=== PATIENT | male | born 1945 | race Caucasian/White ===

== ENCOUNTER → 2018-01-24 | Outpatient (CLI) | payer OTHER ==
--- NOTE | 2018-01-25 16:21 | PE ---
EXAMINATION TYPE: PET CT fusion skull to thigh DATE OF EXAM: 01/24/2018 COMPARISON: Low-dose CT dated 01/13/2018 Prior PET/CT: None HISTORY: Abnormal CT, solitary pulmonary nodule TECHNIQUE: Following the intravenous administration of 15.45 mCi of F-18 FDG, whole body images are performed from the skull base to the midthigh. Images are reviewed on the computer in the coronal, a xial, and sagittal planes. Reconstructed rotating images are created on independent workstation and reviewed on the computer. A localization and attenuation correction CT is performed in conjunction with the PET scan. DLP: 470.46 mGycm SCAN: Initial Blood glucose: 81 mg/dL Average Mediastinum SUV: 1.51 Average Liver SUV: 2.25 FINDINGS: NECK: There is a focus of radiotracer accumulation within the right neck which can be a lymph node w ith increased radiotracer. The SUV values 2.4. Metastatic lesion this level is not excluded. THORAX: Superior mediastinal uptake is evident. PET image 79. 2 foci of small lymph node may be prese nt with SUV values of 3.88 and 3.1. A pretracheal lymph node which is enlarged as an SUV value of 6.3 1. PET image 82 a subtle lymph node in the right peribronchial has mild uptake of 2.37. Early metasta sis is not excluded. This could be inflammatory. There is a small density in the posterior lateral right apex. PET image 72. This has an SUV value of 0.53 which is not obvious neoplasm. This may be too small for accurate evaluation. This area correspo nds to the finding on the low-dose screening CT. Tiny nodule in the posterior left apex near the periphery has uptake in the range of 0.56 SUV. This i s nonspecific. This is likely too small for accurate evaluation. ABDOMEN: No abnormal uptake PELVIS: No abnormal uptake OSSEOUS STRUCTURES: There is a right hip prosthesis with some beam hardening artifact. No abnormal ra diotracer accumulation within the osseous structures is evident. LOCALIZATION CT: Previous lung findings are again evident including a small peripheral nodule in the posterior left medial lung apex, image 77 and the density within the posterior lateral right apex, se yane 3 image 72. Current examination is right apical area measures 1.3 x 1.0 cm on lung windows COMPARISON: Findings appear compatible with the low-dose low-dose CT screening chest. IMPRESSION: 1. Increased uptake of radiotracer within mediastinal lymph nodes suspicious for neoplasm. These may be metastatic from unknown primary.. Primary neoplasm such as lymphoma should be considered. 2. Small focal abnormalities on lung windows are nonspecific on the PET imaging. Significant uptake o f these locations are not evident to suggest neoplasm. Early metastatic lesions however are not exclu ded. These require monitoring. Recommendations: 1. Histologic diagnosis with biopsy of the pretracheal lymph node above the level of the aortic arch may provide the most reliable results.
== END | disposition home or self-care (01) ==
LOC: RADPETMAIN 15:24
PROVIDERS: ATTEND Internal Medicine Critical Care Medicine
DX: R91.8 Other nonspecific abnormal finding of lung field (principal)
CPT/HCPCS: 78815; A9552

== ENCOUNTER → 2018-05-12 | Outpatient (CLI) | payer OTHER ==
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
== END | disposition home or self-care (01) ==
LOC: SLEEP 13:22
PROVIDERS: ATTEND Internal Medicine Critical Care Medicine
DX: J44.9 Chronic obstructive pulmonary disease, unspecified (principal); F10.20 Alcohol dependence, uncomplicated; Z85.46 Personal history of malignant neoplasm of prostate; Z96.641 Presence of right artificial hip joint; Z79.899 Other long term (current) drug therapy
CPT/HCPCS: 99211

== ENCOUNTER → 2018-05-25 | Outpatient (CLI) | payer OTHER ==
[2018-05-25 12:05] LABS: Blood Urea Nitrogen 17 mg/dL (9-20)
[2018-05-25 12:36] LABS: Prostate Specific Antigen 5.76 ng/mL (0.00-4.00)
--- NOTE | 2018-05-25 14:37 | CT ---
EXAMINATION TYPE: CT chest w con DATE OF EXAM: 05/25/2018 COMPARISON: 12/26/2017 HISTORY: Mulltiple Lung Nodules CT DLP: 625 mGycm Automated exposure control for dose reduction was used. CONTRAST: CT scan of the chest is performed with IV Contrast, patient injected with 100 ml mL of Isovue 300. FINDINGS: LUNGS: There is a stable nodule measuring 1.4 x 1.1 cm the posterior lateral margin of the right lung apex unchanged from the prior exam. There are peripheral based nodule within the posterior medial left upper lobe measuring 0.6 x 0.3 cm stable in appearance. There is a peripheral pleural-based calcification anterior left midlung measuring 6 x 9 mm stable. Within the right upper lobe anterolaterally on image 23 is a stable appearing 4 mm nodule. Calcified pleural nodule anterior margin right upper lobe axial image 24 There is no pleural effusion or pneumothorax. No consolidative pneumonia. Hyperinflation correlation suggested COPD. At the left lung base there is an area of subsegmental consolidation adjacent to the left heart borde r likely in the basis of atelectasis. MEDIASTINUM: There is a stable appearing 1.1 cm short axis area of adenopathy in the pretracheal posi tion of the mediastinum unchanged from the prior exam. Additional areas of shotty adenopathy are note d. Atherosclerotic change of the aorta. There is mild aneurysmal dilation of the ascending aorta measuri ng 4.4 cm. There is a 9 mm left thyroid nodule. OTHER: Structures of the upper abdomen demonstrate small hiatal hernia. IMPRESSION: 1. Stable changes of COPD and pulmonary nodules as discussed above with no interval change in size or number compared to the previous. Additional 6 month follow-up is recommended to confirm stability. 2. Stable mediastinal lymphadenopathy. 3. 9 mm left thyroid nodule
== END | disposition home or self-care (01) ==
LOC: RADCTMAIN 11:10
PROVIDERS: ATTEND Internal Medicine Critical Care Medicine
DX: J44.9 Chronic obstructive pulmonary disease, unspecified (principal); R91.8 Other nonspecific abnormal finding of lung field; R59.0 Localized enlarged lymph nodes; E04.1 Nontoxic single thyroid nodule; C61 Malignant neoplasm of prostate
CPT/HCPCS: 84153; 82565; 84520; 71260; 36415; Q9967

== ENCOUNTER → 2018-12-03 | Outpatient (CLI) | payer OTHER | LOC: LABWHC1 11:05 | PROVIDERS: ATTEND Urology | DX: C61 Malignant neoplasm of prostate (principal) | CPT/HCPCS: 36415; 84153 ==

== ENCOUNTER → 2018-12-04 | Outpatient (CLI) | payer OTHER ==
[2018-12-04 11:23] LABS: Blood Urea Nitrogen 18 mg/dL (9-20)
--- NOTE | 2018-12-04 12:24 | CT ---
EXAMINATION TYPE: CT chest w con DATE OF EXAM: 12/04/2018 COMPARISON: 05/25/2018 HISTORY: Abnornal findings of lung field CT DLP: 467 mGycm Automated exposure control for dose reduction was used. CONTRAST: CT scan of the chest is performed with IV Contrast, patient injected with 100 ml mL of Isovue 300. FINDINGS: LUNGS: There is a stable nodule measuring 1.4 x 1.1 cm the posterior lateral margin of the right lung apex unchanged from the prior exam. There are peripheral based nodule within the posterior medial le ft upper lobe measuring 0.6 x 0.3 cm stable in appearance. There is a peripheral pleural-based calcif ication anterior left midlung measuring 6 x 9 mm stable. Within the right upper lobe anterolaterally on image 23 is a stable appearing 4 mm nodule. Calcified pleural nodule anterior margin right upper lobe axial image 24. There is a 5 mm nodule posterior segm ent right lower lobe image 57. There is no pleural effusion or pneumothorax. No consolidative pneumonia. Hyperinflation and diffuse emphysematous changes compatible with COPD. At the left lung base there is an area of subsegmental co nsolidation adjacent to the left heart border likely in the basis of atelectasis. MEDIASTINUM: There is a stable appearing 1.1 cm short axis area of adenopathy in the pretracheal posi tion of the mediastinum unchanged from the prior exam. Additional areas of shotty adenopathy are note d. Atherosclerotic change of the aorta. There is mild aneurysmal dilation of the ascending aorta kayode uring 4.4 cm. There is a 9 mm left thyroid nodule. Small amount of pericardial fluid. Atherosclerotic change of the aorta. OTHER: There is a small hiatal hernia. IMPRESSION: 1. Stable changes of COPD. The previous nodules are stable, however, there is a single new nodule wit hin the right lower lobe measuring 5 mm on axial image 57 which may be postinflammatory but is too sm all to accurately characterized exclude neoplasm. Additional 3 month follow-up is recommended to conf irm stability. 2. Stable mediastinal lymphadenopathy. 3. There is a 9 mm left thyroid nodule
== END | disposition home or self-care (01) ==
LOC: RADCTMAIN 10:45
PROVIDERS: ATTEND Internal Medicine Critical Care Medicine
DX: J44.9 Chronic obstructive pulmonary disease, unspecified (principal); R59.0 Localized enlarged lymph nodes; R91.8 Other nonspecific abnormal finding of lung field
CPT/HCPCS: 82565; 84520; 71260; 36415; Q9967

== ENCOUNTER → 2019-01-25 | Outpatient (CLI) | payer OTHER ==
[2019-01-25 08:18] LABS: Blood Urea Nitrogen 13 mg/dL (9-20)
--- NOTE | 2019-01-25 10:31 | CT ---
EXAMINATION TYPE: CT pelvis w con DATE OF EXAM: 01/25/2019 COMPARISON: Nuclear medicine PET/CT 01/24/2018 HISTORY: Prostate cancer CT DLP: 704 mGycm Automated exposure control for dose reduction was used. TECHNIQUE: Helical acquisition of images from the lung bases through the pelvis have been completed. CONTRAST: Performed with Oral Contrast and with IV Contrast, patient injected with 100 ml mL of Isovue 300. FINDINGS: AORTA: Dense calcifications are present REPRODUCTIVE ORGANS: Prostate is enlarged and shows associated calcifications. Possible small left in guinal hernia containing fat. BOWEL: Intussusception is are noted on axial images 24 through 27, 20-23 within the small bowel. No bowel obstruction evident FREE AIR: No Free Air visible. ASCITES: None visible. PELVIC ADENOPATHY: None visualized. RETROPERITONEAL ADENOPATHY: No Retroperitoneal Adenopathy visible. URINARY BLADDER: No significant abnormality is seen. OSSEOUS STRUCTURES: Postop changes are noted to the right hip. There is streak artifact due to the m etallic density. Probable gas-filled geode present in the posterior ilium on the right is subcentimet er in size. IMPRESSION:
--- NOTE | 2019-01-25 13:47 | NM ---
EXAMINATION TYPE: NM bone scan whole body DATE OF EXAM: 01/25/2019 COMPARISON: CT chest dated 12/04/2018 HISTORY: Prostate cancer Delayed whole-body scanning was performed following the injection of 23.9 mCi Tc 99m MDP. Images acq uired 4.75 hours post injection. FINDINGS: There is abnormal focal radiotracer uptake within the posterior right 11th and 12th ribs, more avid a t the 11th rib. Given the consecutive and linear nature these are favored to be posttraumatic. This i s confirmed on the CT dated 12/04/2018 as there are rib fractures within the 12th and 11th posterior r ight ribs that do not appear to be suspicious on CT for pathologic fractures. Symmetric radiotracer uptake is seen within the acromioclavicular joints, glenohumeral joints, sterno clavicular joints, sacroiliac joints, hips, knees, ankles, elbows, and wrists related to arthropathy. Physiologic excretion is seen within the right renal pelvis and urinary bladder. No suspicious focal areas of radiotracer uptake are seen. IMPRESSION: 1. No suspicious radiotracer uptake to indicate metastatic disease. 2. Focal radiotracer uptake within the posterior right 11th and 12th ribs from subacute rib fractures . These do not appear pathologic on the prior CT. 3. 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
== END | disposition home or self-care (01) ==
LOC: RADCTMAIN 07:33
PROVIDERS: ATTEND Urology
DX: C61 Malignant neoplasm of prostate (principal); M12.88 Other specific arthropathies, not elsewhere classified, other specified site; R93.7 Abnormal findings on diagnostic imaging of other parts of musculoskeletal system; Z88.5 Allergy status to narcotic agent; Z88.1 Allergy status to other antibiotic agents
CPT/HCPCS: 82565; 84520; 72193; 36415; 78306; A9503; Q9967

== ENCOUNTER → 2019-03-01 | Outpatient (CLI) | payer OTHER ==
[2019-03-01 16:20] LABS: Basophils % (A) 1 %; Eosinophils # (A) 0.2 k/uL (0-0.7); Eosinophils % (A) 3 %; HGB 13.8 gm/dL (13.0-17.5); Lymphocytes # (A) 1.2 k/uL (1.0-4.8); Lymphocytes % (A) 18 %; MCH 31.5 pg (25.0-35.0); MCHC 33.6 g/dL (31.0-37.0); MCV 93.9 fL (80.0-100.0); Monocytes # (A) 0.6 k/uL (0-1.0); Monocytes % (A) 9 %; Neutrophils # (A) 4.6 k/uL (1.3-7.7); Neutrophils % (A) 68 %; Platelet Count 244 k/uL (150-450); RBC 4.37 m/uL (4.30-5.90); RDW 14.2 % (11.5-15.5); WBC 6.8 k/uL (3.8-10.6)
[2019-03-01 16:30] LABS: Anion Gap 7 mmol/L; Blood Urea Nitrogen 16 mg/dL (9-20); Calcium 9.1 mg/dL (8.4-10.2); Carbon Dioxide 26 mmol/L (22-30); Chloride 105 mmol/L (98-107); Glucose 70 mg/dL (74-99); Sodium 138 mmol/L (137-145)
[2019-03-01 16:35] LABS: Appearance,Urine Clear (Clear); Bilirubin,Urine Negative (Negative); Blood,Urine Trace (Negative); Color,Urine Yellow; Glucose,Urine (UA) Negative (Negative); Ketones,Urine Negative (Negative); Leukocyte Esterase,Urine Negative (Negative); Mucus,Urine Rare /hpf; Nitrite,Urine Negative (Negative); PH, Urine 5.5 (5.0-8.0); Protein,Urine Trace (Negative); RBC,Urine 3 /hpf (0-5); Specific Gravity,Urine 1.027 (1.001-1.035); Sperm,Urine Rare /hpf; Urobilinogen,Urine <2.0 mg/dL (<2.0); WBC,Urine 1 /hpf (0-5)
== END | disposition home or self-care (01) ==
LOC: LABPAT 15:00
PROVIDERS: ATTEND Urology
DX: Z01.818 Encounter for other preprocedural examination (principal); Z01.812 Encounter for preprocedural laboratory examination; C61 Malignant neoplasm of prostate; R53.83 Other fatigue; Z79.899 Other long term (current) drug therapy
CPT/HCPCS: 80048; 81001; 85025; 93005

== ENCOUNTER 2019-03-11 08:46 | Inpatient (IN) | payer OTHER ==
--- NOTE | 2019-03-10 12:37 | P.GSHP ---
History of Present Illness H&P Date: 03/01/19 Chief Complaint: Prostate Cancer The patient is a 73-year-old white male originally diagnosed with prostate cancer in December 2015. His PSA level at that time was 6.6. A single biopsy at the right lateral base was positive for Codi 6 adenocarcinoma, and he chose active surveillance rather than treatment. Repeat biopsies in December 2016 showed Codi 7 (3+4) adenocarcinoma at the right lateral base, as well as a small focus of Chestnut 6 adenocarcinoma at the left base. Treatment was discussed at that time, but the patient elected to proceed with active surveillance. Biopsies in December 2017 and again showed Codi 7 (3+4) adenocarcinoma at the right lateral base. The PSA level remains stable at 6.55, but recent repeat biopsies have shown Chestnut 9 (4+5) adenocarcinoma at the right lateral base. The other 11 biopsies were negative. He underwent a CT scan and bone scan for staging purposes, and neither showed evidence of metastases. Alternative treatment options were reviewed, and he has elected to undergo a left nerve-sparing robotic-assisted laparoscopic prostatectomy (RALP). - Constitutional Constitutional: Denies weight loss - Gastrointestinal Gastrointestinal: Reports diarrhea - Genitourinary (Female) Genitourinary: Reports nocturia Past Medical History Past Medical History: Cancer, COPD, Prostate Disorder Additional Past Medical History / Comment(s): constipation, hx skin cancer, prostate cancer History of Any Multi-Drug Resistant Organisms: None Reported Past Surgical History: Joint Replacement Additional Past Surgical History / Comment(s): rt hip replacement Past Anesthesia/Blood Transfusion Reactions: Motion Sickness Smoking Status: Current every day smoker - Past Family History Mother Family Medical History: Cancer Medications and Allergies Home Medications Medication Instructions Recorded Confirmed Type Albuterol Inhaler [Ventolin Hfa 1 - 2 puff INHALATION RT-Q6H PRN 03/01/19 03/01/19 History Inhaler] Cialis (Unknown Dose) 1 dose PO DIRECTED PRN 03/01/19 History Melatonin 10 mg PO HS PRN 03/01/19 03/01/19 History Multivitamin [Multivitamins Adult 1 each PO DAILY 03/01/19 03/01/19 History Gummies] Umeclidinium Brm/Vilanterol Tr 1 puff INHALATION DAILY 03/01/19 03/01/19 History [Anoro Ellipta 62.5-25 Mcg INH] clonazePAM [KlonoPIN] 0.5 mg PO HS 03/01/19 03/01/19 History Allergies Allergy/AdvReac Type Severity Reaction Status Date / Time Sulfa (Sulfonamide Allergy Unknown Rash/Hives Verified 03/01/19 13:28 Antibiotics) tetracycline Allergy Unknown UNKNOWN- Verified 03/01/19 14:00 TAKEN FROM OR BOARDING SHEET. Surgical - Exam - General well developed, well nourished, no distress - Respiratory normal respiratory effort, clear to auscultation - Cardiovascular Rhythm: regular Abnormal Heart Sounds: no systolic murmur, no diastolic murmur, no rub, no S3 G allop, no S4 Gallop, no click, no other - Abdomen Abdomen: soft, non tender, no guarding, no rigid, no rebound Hernia: none - Genitourinary normal penis with no external lesions, testicles non-tender - Rectum Rectum: normal sphincter tone, no masses, other ( prostate moderately enlarged but smooth) - Psychiatric oriented to time, oriented to person, oriented to place, speech is normal, memory intact Assessment and Plan (1) Malignant neoplasm of prostate Status: Acute Code(s): C61 - MALIGNANT NEOPLASM OF PROSTATE SNOMED Code(s): 540723048 Plan: Bilateral pelvic lymphadenectomy, left nerve sparing robotic-assisted laparoscopic prostatectomy (RALP). The procedure has been reviewed in detail with the patient. He is aware of potential risks, which include anesthesia, bleeding, infection, neurovascular injury, bowel injury, urinary leak, lymphocele, and vesical neck contracture. He reports mild erectile dysfunction and understands that this will worsen despite preservation of the left neurovascular bundle. The possibility of post-prostatectomy urinary incontinence has been reviewed in detail. The patient is also aware of the possible need for adjuvant therapy.
[~2019-03-11 08:46] MED LIST: DEXAMETHASONE SOD PHOSPHATE 10 MG/ML 1 ML VIAL IV ONE; HEPARIN SODIUM,PORCINE 5,000 UNIT/ML 1 ML VIAL SQ ONE; HYDROmorphone 0.5 MG/0.5 ML SYRINGE IVP PRN; MIDAZOLAM 2 MG/2 ML VIAL IV PRN; ONDANSETRON 4 MG/2 ML VIAL IVP ONE; SCOPOLAMINE 1.5MG/72HR PATCH TRANSDERM ONE; ceFAZolin IN SWFI 2 GM/20 ML SYRINGE IVP ONE
[2019-03-11] MEDS: LACTATED RINGERS 1,000 ML IV SCH ×4 (10:34→17:59)
[2019-03-11] MEDS: LIDOCAINE 1% 20 ML VIAL (10MG/ML) FOR IV START INTRADERMA ONE ×2 (10:35→10:37)
[2019-03-11] MEDS ORDERED: BUPIVACAINE (PF) 0.5% 30 ML VIAL SQ ONE ×2 (11:11→16:07)
[2019-03-11] MEDS ORDERED: GLYCOPYRROLATE 0.2 MG/ML 2 ML VIAL ONE (11:28)
[2019-03-11] MEDS ORDERED: ePHEDrine SULFATE/0.9% NACL/PF 50 MG/5 ML SYRINGE IV ONE (11:28)
[2019-03-11] MEDS ORDERED: HYDROmorphone (PF) 1 MG/ML ONE (11:28)
[2019-03-11] MEDS ORDERED: ROCURONIUM BROMIDE 10 MG/ML 10 ML VIAL IV ONE (11:28)
[2019-03-11] MEDS ORDERED: fentaNYL (PF) 50 MCG/ML 2 ML AMP ONE (11:28)
[2019-03-11] MEDS ORDERED: LABETALOL 5 MG/ML VIAL MDV ONE (11:28)
[2019-03-11] MEDS ORDERED: PROPOFOL 10 MG/ML 20 ML VIAL IV ONE (11:28)
[2019-03-11] MEDS ORDERED: LIDOCAINE 1% INJ 10MG/ML (20 ML MDV) ONE (11:28)
[2019-03-11] MEDS ORDERED: NEOSTIGMINE 1 MG/ML 10 ML VIAL ONE (11:28)
[2019-03-11] MEDS ORDERED: SUCCINYLCHOLINE CHLORIDE 100 MG/5 ML SYR IV ONE (11:28)
[2019-03-11] MEDS ORDERED: MIDAZOLAM 2 MG/2 ML VIAL ONE (11:28)
--- NOTE | 2019-03-11 16:12 | P.OP ---
Date of Procedure: 03/11/19 Preoperative Diagnosis: Adenocarcinoma of the prostate, clinical stage [id number] Postoperative Diagnosis: Same Procedure(s) Performed: Robotic-assisted laparoscopic prostatectomy (RALP) with bilateral pelvic lymphadenectomy Anesthesia: REGAN Surgeon: Rodney Raphael Estimated Blood Loss (ml): 100 IV fluids (ml): 950 Pathology: other (Bilateral pelvic lymph nodes, prostate with seminal vesicles) Condition: stable Disposition: PACU Indications for Procedure: The patient is a 73-year-old white male originally diagnosed with prostate cancer in December 2015. His PSA level at that time was 6.6. A single biopsy at the right lateral base was positive for [place] 6 adenocarcinoma, and he chose active surveillance rather than treatment. Repeat biopsies in December 2016 showed [place] 7 (3+4) adenocarcinoma at the right lateral base, as well as a small focus of [place] 6 adenocarcinoma at the left base. Treatment was discussed at that time, but the patient elected to proceed with active surveillance. Biopsies in December 2017 and again showed [place] 7 (3+4) adenocarcinoma at the right lateral base. The PSA level remains stable at 6.55, but recent repeat biopsies have shown [place] 9 (4+5) adenocarcinoma at the right lateral base. The other 11 biopsies were negative. He underwent a CT scan and bone scan for staging purposes, and neither showed evidence of metastases. Alternative treatment options were reviewed, and he has elected to undergo a left nerve-sparing robotic-assisted laparoscopic prostatectomy (RALP). Operative Findings: No evidence of extraprostatic disease. Description of Procedure: The patient was taken in the operating room and placed in the dorsal lithotomy position, with his legs supported in Colton stirrups. He was carefully positioned on a beanbag for stability. The abdomen and external genitalia were prepped and draped sterilely. A Lacy catheter was inserted. The Veress needle was passed through the anterior abdominal wall immediately cephalad to the u mbilicus, and insufflation was performed to a pressure of 20 mm Hg. Once insufflation was performed, the Veress needle was removed and a supraumbilical incision was made, through which a 12 mm camera port was placed. Under camera guidance, 3 8 mm robotic ports were placed, 2 on the left and one on the right. An additional 12 mm port was placed on the right lateral side for use as an nurses medical assistants phlebotomists port. A 5 mm port was placed to the right of the camera port for suction. The patient was placed in Trendelenburg position, and docking was then performed to the da Anisa system utilizing a 4-arm approach. The abdomen was examined. Some small bowel adhesions were noted on the left side, which were lysed. The sigmoid colon was mobilized out of the pelvis. The peritoneum was incised lateral to the medial umbilical ligaments bilaterally, exposing the pubis. The peritoneum was then incised across the midline, allowing the bladder flap to be taken down. The endopelvic fascia was opened bilaterally, and muscular attachments from the urogenital diaphragm were swept away from the prostate. Extended bilateral pelvic lymphadenectomies were performed in the standard fashion. The peritoneal incisions were extended in a cephalad direction, and the vas deferens were divided bilaterally. Margins of dissection were the bifurcation of the iliac vessels proximally, the circumflex iliac vein distally, the genitofemoral nerve laterally, and the obturator nerve medially. A combination of sharp and blunt dissection was used. Care was taken to avoid any neurovascular injury, and the use of monopolar electrocautery was avoided immediately adjacent to neurovascular structures. The lymphatic package was clipped distally. No enlarged lymph nodes were encountered. There were no complications. The vesical neck was incised transversely, down to the lumen. The Lacy catheter was brought out through the anterior vesical neck incision and was used for traction. The posterior aspect of the vesical neck was incised, such that the full-thickness of the vesical neck was divided. The anterior layer of the Denonvilliers fascia was incised, exposing the vas deferens. Each were isolated and divided. Next, each of the seminal vesicles were dissected away from adjacent tissues, and vascular attachments were cauterized and divided. The posterior leaf of Denonvilliers fascia was incised transversely, allowing entry into the plane between the prostate and rectum. With lateral spreading, this plane was developed down to the apex. This exposed the lateral vascular pedicles bilaterally. These were clipped and divided in an antegrade fashion, down to the apex. A wide excision was performed on the right, but the plane of dissection on the left was immediately adjacent to the prostate to preserve the left neurovascular bundle. The use of electrocautery was avoided on the left to prevent thermal damage to the nerves. The remaining apical attachments were swept away from the prostate. The dorsal venous complex was incised, as well as periurethral tissue. At this point, only the urethra remained intact. This was transected immediately distal to the prostatic apex using cold scissors. The specimen was placed within a specimen bag. The dorsal venous complex was sutured using a V-Loc suture in a running fashion. A second V-Loc suture was then used to place the Mason stitch, incorporating the rhabdosphincter and the edge of Denonvilliers fascia. This allowed the bladder to be taken down to the urethra, leaving the vesical neck immediately adjacent to the urethra. There was some questionable prosthetic tissue on the posterior vesicle neck, so this was sized using the cold scissors. The vesicourethral anastomosis was then performed using a V-Loc suture in a running fashion. After completing the anastomosis, an 18-Tamazight Lacy catheter was placed and approximately 150 mL of 0.9 normal saline were instilled into the bladder. No extravasation of irrigant from the vesicourethral anastomosis was noted. A small amount of oozing was noted from the left lateral vascular pedicle, so Surgicel was placed over both vascular pedicles. Tisseel was sprayed into the pelvis over the vascular pedicles, dorsal vein, and vesicourethral anastomosis. The patient was returned to the supine position. Undocking was performed, and the specimen bag sutures were passed through the camera port. After removing all the ports and allowing all of the CO2 to be released from the peritoneal cavity, the camera port incision was enlarged to allow removal of the surgical specimen. The fascia of this incision was then closed using 0 Vicryl suture in an interrupted [id number] fashion. Each of the skin incisions were then closed using 4-0 Monocryl suture in a subcuticular fashion. Marcaine was injected at each of the incision sites. Dermabond was applied to each incision. The Lacy catheter was connected to gravity drainage. All sponge and needle counts were correct. The patient tolerated the procedure well was taken to the recovery room in stable condition.
[2019-03-11] MEDS ORDERED: ALBUTEROL NEBULIZED 2.5 MG/3 ML INHALATION PRN (16:13)
[2019-03-11] MEDS ORDERED: HYDROmorphone 1 MG/ML 1 ML SYRINGE IVP PRN (16:14)
[2019-03-11] MEDS ORDERED: ALBUTEROL NEBULIZED 2.5 MG/3 ML INHALATION ONE (16:26)
[2019-03-11 17:25] VITALS: RESP 16
[2019-03-11 18:06] VITALS: BMI 24.7
[2019-03-11] MEDS: DEXTROSE 5%-0.45% NACL 1,000 ML IV SCH (18:23)
[2019-03-11] MEDS: FORMOTEROL FUMARATE 20 MCG/2 ML NEBU INHALATION SCH (19:45)
[2019-03-11] MEDS: IPRATROPIUM 0.5 MG/2.5 ML NEBU INHALATION SCH (19:45)
[2019-03-11] MEDS ORDERED: clonazePAM 0.5 MG TAB PO SCH (21:00)
[2019-03-11] MEDS: ACETAMINOPHEN TAB 325 MG TAB PO PRN (21:11)
[2019-03-11] MEDS: HEPARIN SODIUM,PORCINE 5,000 UNIT/ML 1 ML VIAL SQ SCH (21:12)
[2019-03-12] MEDS: KETOROLAC 30 MG/ML 1 ML VIAL IVP PRN ×2 (00:11→06:01)
[2019-03-12] MEDS: DEXTROSE 5%-0.45% NACL 1,000 ML IV SCH ×2 (00:34→09:31)
[2019-03-12] MEDS: LACTATED RINGERS 1,000 ML IV SCH (00:34)
[2019-03-12] MEDS: ACETAMINOPHEN TAB 325 MG TAB PO PRN (02:10)
[2019-03-12] MEDS: FORMOTEROL FUMARATE 20 MCG/2 ML NEBU INHALATION SCH (06:56)
[2019-03-12] MEDS: IPRATROPIUM 0.5 MG/2.5 ML NEBU INHALATION SCH (06:56)
[2019-03-12] MEDS: HEPARIN SODIUM,PORCINE 5,000 UNIT/ML 1 ML VIAL SQ SCH (07:04)
[2019-03-12 07:55] VITALS: BP 127/69; PULSE 80; TEMP 98.4
--- NOTE | 2019-03-12 09:06 | P.DS ---
Providers Date of admission: 03/11/19 08:46 Expected date of discharge: 03/12/19 Attending physician: Rodney Raphael Primary care physician: Adam Ortega - Discharge Diagnosis(es) (1) Malignant neoplasm of prostate Current Visit: Yes Status: Acute Hospital Course: On the day of admission, the patient underwent an uncomplicated robotic assisted laparoscopic prostatectomy (RALP). The perioperative course was unremarkable. He remained afebrile with stable vital signs. On the first postoperative day, he was walking in his room without difficulty, and tolerating diet. He rated his pain as a 2, and was not taking analgesics, though he did report abdominal discomfort. On examination, the abdomen was soft and nondistended. The incisions were clean and dry. The Lacy catheter was draining clear yellow urine. Procedures: RALP, (B) PLND on 03/11/2019. Patient Condition at Discharge: Good Plan - Discharge Summary Discharge Rx Participant: No New Discharge Prescriptions: New Ciprofloxacin HCl [Cipro] 250 mg PO Q12HR #6 tablet Hydrocodone/Acetaminophen [[place] 5-325] 1 - 2 each PO Q4HR PRN #6 tab PRN Reason: Pain No Action Umeclidinium Brm/Vilanterol Tr [Anoro Ellipta 62.5-25 Mcg INH] 1 puff INHALATION RT-DAILY clonazePAM [KlonoPIN] 0.5 mg PO HS Albuterol Inhaler [Ventolin Hfa Inhaler] 1 - 2 puff INHALATION RT-Q6H PRN PRN Reason: Shortness Of Breath Multivitamin [Multivitamins Adult Gummies] 1 tab PO DAILY Melatonin 10 mg PO HS PRN PRN Reason: Insomnia Tadalafil [Cialis] 20 mg PO ONCE PRN PRN Reason: ERECTILE DYSFUNCTION Discharge Medication List Albuterol Inhaler [Ventolin Hfa Inhaler] 1 - 2 puff INHALATION RT-Q6H PRN 03/01/19 [History] Melatonin 10 mg PO HS PRN 03/01/19 [History] Multivitamin [Multivitamins Adult Gummies] 1 tab PO DAILY 03/01/19 [History] Umeclidinium Brm/Vilanterol Tr [Anoro Ellipta 62.5-25 Mcg INH] 1 puff INHALATION RT-DAILY 03/01/19 [History] clonazePAM [KlonoPIN] 0.5 mg PO HS 03/01/19 [History] Tadalafil [Cialis] 20 mg PO ONCE PRN 03/11/19 [History] Ciprofloxacin HCl [Cipro] 250 mg PO Q12HR #6 tablet 03/12/19 [Rx] Hydrocodone/Acetaminophen [[place] 5-325] 1 - 2 each PO Q4HR PRN #6 tab 03/12/19 [ Rx] Follow up Appointment(s)/Referral(s): Rony Jeffers MD [STAFF PHYSICIAN] - 03/22/19 Activity/Diet/Wound Care/Special Instructions: Discharge home with Lacy catheter. Instruct patient to use overnight drainage bag as well as urinary leg bag. Okay to shower. Diet as tolerated. No lifting, driving, or strenuous activity. Reassure patient that abdominal wall ecchymosis, penoscrotal swelling, and urethral bleeding are normal. Instruct patient to begin taking antibiotics one day prior to Lacy catheter removal. Discharge Disposition: HOME SELF-CARE
== END 2019-03-12 10:39 | disposition home or self-care (01) | DRG 708 ==
LOC: 2ORMAIN 08:46 → 4SSUR 16:25
PROVIDERS: ADMIT Urology; ATTEND Urology
PROC: 07BC4ZZ Excision of Pelvis Lymphatic, Percutaneous Endoscopic Approach (ICD-10-PCS; 2019-03-11)
PROC: 0VT04ZZ Resection of Prostate, Percutaneous Endoscopic Approach (ICD-10-PCS; principal; 2019-03-11 10:30)
DX: C61 Malignant neoplasm of prostate (principal); F17.210 Nicotine dependence, cigarettes, uncomplicated; J44.9 Chronic obstructive pulmonary disease, unspecified; N52.9 Male erectile dysfunction, unspecified; Z85.828 Personal history of other malignant neoplasm of skin; Z96.641 Presence of right artificial hip joint; Z79.899 Other long term (current) drug therapy; Z88.1 Allergy status to other antibiotic agents
CPT/HCPCS: 86850; 86900; 86901; 94640

== ENCOUNTER → 2019-04-16 | Outpatient (CLI) | payer OTHER | END | disposition home or self-care (01) | LOC: LABWHC1 11:12 | PROVIDERS: ATTEND Urology | DX: C61 Malignant neoplasm of prostate (principal) | CPT/HCPCS: 36415; 84153 ==

== ENCOUNTER → 2019-06-02 | Outpatient (CLI) | payer OTHER ==
[2019-06-02 06:36] LABS: African American GFR (CKD) >90 (>60 ml/min/1.73 sqM); Blood Urea Nitrogen 19 mg/dL (9-20)
--- NOTE | 2019-06-02 09:45 | CT ---
EXAMINATION TYPE: CT chest w con DATE OF EXAM: 06/02/2019 COMPARISON: PET CT January 24, 2018. Chest CT December 04, 2018 and older CTs back to December 26, 2017 HISTORY: Multinodules of lung CT DLP: 461 mGycm. Automated Exposure Control for Dose Reduction was Utilized. TECHNIQUE: CT scan of the thorax is performed following with IV Contrast, patient injected with 100 ml mL of Isovue 300. FINDINGS: LUNGS: Background fairly moderate underlying emphysematous change is redemonstrated most prominent in the lung apices. Stable 1.1 x 0.5 cm right apical scar like opacity axial image 12 unchanged back to December 26, [address] Smaller nodules scattered throughout the right lung are stable or impr jhoana. For reference stable 3 to 4 mm nodule right upper lung axial image 23 is noted. Interval improv ement in posterior right basilar nodule reference axial image 57 prior study not clearly seen on curr ent study. No new greater than 5 mm nodularity is seen. Calcified pleural plaquing anteriorly axial i mage 25 is unchanged from original study. No new suspicious nodules in the left lung. Linear scarring medially in the lingula remains present. Scattered small nodules are stable or improved. MEDIASTINUM: There are no new greater than 1 cm hilar or mediastinal lymph nodes. Stable slightly enl arged right paratracheal and pericarinal lymph nodes on axial image 24 and 28 respectively . No card iomegaly is seen. Tiny pericardial effusion is felt stable. Stable 7 mm left thyroid nodule axial im age 9. Moderate calcified plaque of the thoracic aorta. 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 OTHER: Mild multilevel spurring in the thoracic spine is present. IMPRESSION: Overall stable findings, no enlarging nodules from December 26, 2017 favor postinflammator y etiology
== END | disposition home or self-care (01) ==
LOC: RADCTMAIN 05:49
PROVIDERS: ATTEND Internal Medicine Critical Care Medicine
DX: R91.8 Other nonspecific abnormal finding of lung field (principal)
CPT/HCPCS: 82565; 84520; 71260; 36415; Q9967

== ENCOUNTER → 2019-07-22 | Outpatient (CLI) | payer OTHER | END | disposition home or self-care (01) | LOC: LABWHC1 11:23 | PROVIDERS: ATTEND Urology | DX: C61 Malignant neoplasm of prostate (principal) | CPT/HCPCS: 36415; 84153 ==

== ENCOUNTER → 2019-10-26 | Outpatient (CLI) | payer OTHER | END | disposition home or self-care (01) | LOC: LABWHC1 16:01 | PROVIDERS: ATTEND Urology | DX: C61 Malignant neoplasm of prostate (principal) | CPT/HCPCS: 36415; 84153 ==

== ENCOUNTER 2020-04-27 15:59 | Emergency (ER) | payer MEDICARE ==
[2020-04-27] MEDS ORDERED: ALBUTEROL NEBULIZED 2.5 MG/3 ML INHALATION STA (17:54)
[2020-04-27] MEDS ORDERED: FUROSEMIDE 10 MG/ML 4 ML VIAL IV STA (17:54)
[2020-04-27] MEDS ORDERED: IPRATROPIUM 0.5 MG/2.5 ML NEBU INHALATION STA (17:54)
[2020-04-27] MEDS ORDERED: methylPREDNISolone SOD SUCCI 125 MG/2 ML VIAL IV STA (17:54)
--- NOTE | 2020-04-27 18:21 | ED ---
General Adult HPI - General Chief complaint: Shortness of Breath Stated complaint: ISACC, COPD, swollen legs Time Seen by Provider: 04/27/20 16:55 Source: patient, RN notes reviewed, old records reviewed Mode of arrival: wheelchair Limitations: no limitations - History of Present Illness Initial comments: This is a 74-year-old male who presents emergency Department stating that he feels as though is in the upper respiratory infection for the last 2 weeks. Patient states she's become more more short of breath. Patient does state he continues to smoke. Patient also is noted over the last 2 weeks she's had more swelling in both of his legs which he normally does not have. Patient denies any chest pain or palpitations. Patient denies any lightheadedness or dizziness. Patient denies any areas of erythema. Patient denies abdominal pain patient denies any nausea vomiting diarrhea. Patient states even the slightest exertion makes him very short of breath. - Related Data Home Medications Medication Instructions Recorded Confirmed Albuterol Inhaler (Mhu) [Ventolin 1 - 2 puff INHALATION RT-Q6H PRN 03/01/19 03/11/19 Hfa Inhaler] Melatonin 10 mg PO HS PRN 03/01/19 03/11/19 Multivitamin [Multivitamins Adult 1 tab PO DAILY 03/01/19 03/11/19 Gummies] Umeclidinium Brm/Vilanterol Tr 1 puff INHALATION RT-DAILY 03/01/19 03/11/19 [Anoro Ellipta 62.5-25 Mcg INH] clonazePAM [KlonoPIN] 0.5 mg PO HS 03/01/19 03/11/19 Tadalafil [Cialis] 20 mg PO ONCE PRN 03/11/19 03/11/19 Previous Rx's Medication Instructions Recorded Ciprofloxacin HCl [Cipro] 250 mg PO Q12HR #6 tablet 03/12/19 Hydrocodone/Acetaminophen [[place] 1 - 2 each PO Q4HR PRN #6 tab 03/12/19 5-325] Albuterol Inhaler [Ventolin Hfa 2 puff INHALATION RT-QID #2 puff 04/27/20 Inhaler] Azithromycin [Zithromax Tri-Alvin] 500 mg PO DAILY #3 tab 04/27/20 Furosemide [Lasix] 20 mg PO DAILY #7 tab 04/27/20 predniSONE [Deltasone] 40 mg PO DAILY #8 tab 04/27/20 Allergies Allergy/AdvReac Type Severity Reaction Status Date / Time Sulfa (Sulfonamide Allergy Unknown Rash/Hives Verified 04/27/20 16:54 Antibiotics) tetracycline Allergy Unknown UNKNOWN- Verified 04/27/20 16:54 TAKEN FROM OR BOARDING SHEET. Review of Systems ROS Statement: Those systems with pertinent positive or pertinent negative responses have been documented in the HPI. ROS Other: All systems not noted in ROS Statement are negative. 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 History of Any Multi-Drug Resistant Organisms: None Reported Past Surgical History: Joint Replacement Additional Past Surgical History / Comment(s): rt hip replacement Past Anesthesia/Blood Transfusion Reactions: No Reported Reaction Additional Past Anesthesia/Blood Transfusion Reaction / Comment(s): Claustrophobic. Past Psychological History: No Psychological Hx Reported Smoking Status: Current every day smoker Past Alcohol Use History: None Reported, Heavy Past Drug Use History: None Reported - Past Family History Mother Family Medical History: Cancer Additional Family Medical History / Comment(s): breast cancer General Exam - General Exam Comments Initial Comments: GENERAL: Patient is well-developed and well-nourished. Patient is nontoxic and well- hydrated and is in mild distress. ENT: Neck is soft and supple. No significant lymphadenopathy is noted. Oropharynx is clear. Moist mucous membranes. Neck has full range of motion without eliciting any pain. EYES: The sclera were anicteric and conjunctiva were pink and moist. Extraocular movements were intact and pupils were equal round and reactive to light. Eyelids were unremarkable. PULMONARY: Patient has expiratory wheezing diffusely CARDIOVASCULAR: There is a regular rate and rhythm without any murmurs gallops or rubs. ABDOMEN: Soft and nontender with normal bowel sounds. SKIN: Skin is clear with no lesions or rashes and otherwise unremarkable. NEUROLOGIC: Patient is alert and oriented x3. Cranial nerves II through XII are grossly intact. Motor and sensory are also intact. Normal speech, volume and content. Symmetrical smile. MUSCULOSKELETAL: Normal extremities with adequate strength and full range of motion. LYMPHATICS: No significant lymphadenopathy is noted PSYCHIATRIC: Normal psychiatric evaluation. Limitations: no limitations Course Vital Signs 04/27/20 04/27/20 04/27/20 16:52 18:14 18:25 Temperature 98.5 F 97.0 F L Pulse Rate 73 78 73 Respiratory 18 17 Rate Blood Pressure 109/72 129/91 O2 Sat by Pulse 95 97 Oximetry 04/27/20 04/27/20 18:28 18:39 Temperature Pulse Rate 77 Respiratory 15 Rate Blood Pressure O2 Sat by Pulse Oximetry Medical Decision Making - Medical Decision Making EKG shows a normal sinus rhythm at 72 bpm [place] interval 156 QRS is 72 QT interval 380 QTC is 416. Patient's EKG shows no ST segment elevation or depression. Chest x-ray shows right middle lobe pneumonia. I started the patient Rocephin didn't blood cultures. I gave the patient 2 breathing treatments in the emergency department as well as steroids. I reexamined the patient he was feeling better and on listening to his lungs patient only had very minimal wheezing. Patient did not want to be admitted so I will be discharging the patient home to follow-up with Dr. Loera I will give him an inhaler steroids and an antibiotic. - Lab Data Result diagrams: 04/27/20 18:12 04/27/20 18:12 Lab Results 04/27/20 04/27/20 04/27/20 Range/Units 18:12 18:12 18:12 WBC 8.5 (3.8-10.6) k/uL RBC 4.06 L (4.30-5.90) m/uL Hgb 12.7 L (13.0-17.5) gm/dL Hct 40.3 (39.0-53.0) % MCV 99.2 (80.0-100.0) fL MCH 31.3 (25.0-35.0) pg MCHC 31.6 (31.0-37.0) g/dL RDW 13.4 (11.5-15.5) % Plt Count 223 (150-450) k/uL Neutrophils % 70 % Lymphocytes % 16 % Monocytes % 10 % Eosinophils % 1 % Basophils % 0 % Neutrophils # 5.9 (1.3-7.7) k/uL Lymphocytes # 1.3 (1.0-4.8) k/uL Monocytes # 0.9 (0-1.0) k/uL Eosinophils # 0.1 (0-0.7) k/uL Basophils # 0.0 (0-0.2) k/uL PT 10.8 (9.0-12.0) sec INR 1.0 (<1.2) APTT 22.6 (22.0-30.0) sec Sodium 134 L (137-145) mmol/L Potassium 4.6 (3.5-5.1) mmol/L Chloride 102 (98-107) mmol/L Carbon Dioxide 25 (22-30) mmol/L Anion Gap 7 mmol/L BUN 45 H (9-20) mg/dL Creatinine 1.23 (0.66-1.25) mg/dL Est GFR (CKD-EPI)AfAm 67 (>60 ml/min/1.73 sqM) Est GFR (CKD-EPI)NonAf 58 (>60 ml/min/1.73 sqM) Glucose 99 (74-99) mg/dL Plasma Lactic Acid Abhishek (0.7-2.0) mmol/L Calcium 8.9 (8.4-10.2) mg/dL Magnesium 2.2 (1.6-2.3) mg/dL Total Bilirubin 0.5 (0.2-1.3) mg/dL AST 72 H (17-59) U/L ALT 116 H (4-49) U/L Alkaline Phosphatase 74 (38-126) U/L Troponin I (0.000-0.034) ng/mL NT-Pro-B Natriuret Pep pg/mL Total Protein 6.6 (6.3-8.2) g/dL Albumin 3.9 (3.5-5.0) g/dL 04/27/20 04/27/20 04/27/20 Range/Units 18:12 18:12 18:12 WBC (3.8-10.6) k/uL RBC (4.30-5.90) m/uL Hgb (13.0-17.5) gm/dL Hct (39.0-53.0) % MCV (80.0-100.0) fL MCH (25.0-35.0) pg MCHC (31.0-37.0) g/dL RDW (11.5-15.5) % Plt Count (150-450) k/uL Neutrophils % % Lymphocytes % % Monocytes % % Eosinophils % % Basophils % % Neutrophils # (1.3-7.7) k/uL Lymphocytes # (1.0-4.8) k/uL Monocytes # (0-1.0) k/uL Eosinophils # (0-0.7) k/uL Basophils # (0-0.2) k/uL PT (9.0-12.0) sec INR (<1.2) APTT (22.0-30.0) sec Sodium (137-145) mmol/L Potassium (3.5-5.1) mmol/L Chloride (98-107) mmol/L Carbon Dioxide (22-30) mmol/L Anion Gap mmol/L BUN (9-20) mg/dL Creatinine (0.66-1.25) mg/dL Est GFR (CKD-EPI)AfAm (>60 ml/min/1.73 sqM) Est GFR (CKD-EPI)NonAf (>60 ml/min/1.73 sqM) Glucose (74-99) mg/dL Plasma Lactic Acid Abhishek 1.2 (0.7-2.0) mmol/L Calcium (8.4-10.2) mg/dL Magnesium (1.6-2.3) mg/dL Total Bilirubin (0.2-1.3) mg/dL AST (17-59) U/L ALT (4-49) U/L Alkaline Phosphatase (38-126) U/L Troponin I <0.012 (0.000-0.034) ng/mL NT-Pro-B Natriuret Pep 137 pg/mL Total Protein (6.3-8.2) g/dL Albumin (3.5-5.0) g/dL Disposition Clinical Impression: Pneumonia, COPD exacerbation Disposition: HOME SELF-CARE Condition: Good Instructions (If sedation given, give patient instructions): COPD (Chronic Obstructive Pulmonary Disease) (ED), Bacterial Pneumonia (ED) Prescriptions: predniSONE [Deltasone] 40 mg PO DAILY #8 tab Furosemide [Lasix] 20 mg PO DAILY #7 tab Albuterol Inhaler [Ventolin Hfa Inhaler] 2 puff INHALATION RT-QID #2 puff Azithromycin [Zithromax Tri-Alvin] 500 mg PO DAILY #3 tab Is patient prescribed a controlled substance at d/c from ED?: No Referrals: Adam Ortega Jr, [Primary Care Provider] - 1-2 days Time of Disposition: 19:22
[2020-04-27 18:24] LABS: Basophils % (A) 0 %; Eosinophils # (A) 0.1 k/uL (0-0.7); Eosinophils % (A) 1 %; HCT 40.3 % (39.0-53.0); HGB 12.7 gm/dL (13.0-17.5); Lymphocytes # (A) 1.3 k/uL (1.0-4.8); Lymphocytes % (A) 16 %; MCH 31.3 pg (25.0-35.0); MCHC 31.6 g/dL (31.0-37.0); MCV 99.2 fL (80.0-100.0); Mean Platelet Volume 8.7; Monocytes # (A) 0.9 k/uL (0-1.0); Monocytes % (A) 10 %; Neutrophils # (A) 5.9 k/uL (1.3-7.7); Neutrophils % (A) 70 %; Platelet Count 223 k/uL (150-450); RBC 4.06 m/uL (4.30-5.90); RDW 13.4 % (11.5-15.5); WBC 8.5 k/uL (3.8-10.6)
[2020-04-27 18:34] LABS: Partial Thromboplastin Time 22.6 sec (22.0-30.0); Prothrombin Time 10.8 sec (9.0-12.0)
[2020-04-27 18:36] LABS: Albumin 3.9 g/dL (3.5-5.0); Calcium 8.9 mg/dL (8.4-10.2); Magnesium 2.2 mg/dL (1.6-2.3); Potassium 4.6 mmol/L (3.5-5.1); Total Bilirubin 0.5 mg/dL (0.2-1.3); Total Protein 6.6 g/dL (6.3-8.2)
[2020-04-27 18:44] VITALS: TEMP 97
--- NOTE | 2020-04-27 18:54 | XR ---
EXAMINATION TYPE: XR chest 2V DATE OF EXAM: 04/27/2020 COMPARISON: Chest CT June 02, 2019. HISTORY: Difficulty in breathing. TECHNIQUE: Frontal and lateral views of the chest are obtained. FINDINGS: There is background chronic emphysematous change with new suspicious right mid lung opacit y on frontal view. Left lung remains clear. No pleural effusion or pneumothorax. The cardiac silhoue tte size is upper limits of normal with atherosclerotic aorta. The osseous structures are demineral ized. IMPRESSION: Moderate emphysematous change with new suspicious acute right middle lung infiltrate. Co rrelate clinically.
[2020-04-27] MEDS ORDERED: cefTRIAXone IN SWFI 1,000 MG/10 ML SYRINGE IVP STA (19:01)
[2020-04-27 19:47] VITALS: BP 117/80; PULSE 75; RESP 19
== END 2020-04-27 19:47 | disposition home or self-care (01) ==
LOC: EC 15:59
DX: J44.1 Chronic obstructive pulmonary disease with (acute) exacerbation (principal); J44.0 Chronic obstructive pulmonary disease with (acute) lower respiratory infection; J18.9 Pneumonia, unspecified organism; F17.200 Nicotine dependence, unspecified, uncomplicated; Z79.899 Other long term (current) drug therapy; Z88.1 Allergy status to other antibiotic agents; Z88.2 Allergy status to sulfonamides; Z96.641 Presence of right artificial hip joint; Z85.828 Personal history of other malignant neoplasm of skin; Z85.46 Personal history of malignant neoplasm of prostate
CPT/HCPCS: 36415; 94640; 83880; 80053; 83605; 83735; 84484; 85025; 85610; 85730; 87040; 71046; 99285; 96374; 96375 ×2; U0003; J1940; J2930; J0696

== ENCOUNTER → 2020-05-01 | Outpatient (CLI) | payer MEDICARE ==
--- NOTE | 2020-05-01 14:57 | XR ---
EXAMINATION TYPE: XR chest 2V DATE OF EXAM: 05/01/2020 COMPARISON: 04/27/2020 HISTORY: Shortness of breath and wheezing TECHNIQUE: Frontal and lateral views of the chest are obtained. FINDINGS: Vague right perihilar opacity remains in comparison to 04/27/2020 unchanged. No new focal co nsolidation, pleural effusion or pneumothorax. Cardia mediastinal silhouette is mildly enlarged. Flat tening of the diaphragms on the lateral view suggests underlying COPD. IMPRESSION: Faint right perihilar opacity appears similar to the prior of 04/27/2020. Pneumonia is a p rimary consideration.
== END | disposition home or self-care (01) ==
LOC: RADXRMAIN 14:19
PROVIDERS: ATTEND Family Medicine
DX: J18.9 Pneumonia, unspecified organism (principal); R06.2 Wheezing
CPT/HCPCS: 71046

== ENCOUNTER 2020-05-09 21:37 | Inpatient (IN) | payer MEDICARE ==
[2020-05-09] MEDS ORDERED: IPRATROPIUM-ALBUTEROL 3 ML NEB INHALATION STA (22:09)
[2020-05-09] MEDS ORDERED: MAGNESIUM SULFATE-D5W PMX 1 GM in DEXTROSE/WATER 1 100ML.BAG IVPB ONE (22:09)
[2020-05-09] MEDS ORDERED: methylPREDNISolone SOD SUCCI 125 MG/2 ML VIAL IV STA (22:09)
--- NOTE | 2020-05-09 22:19 | XR ---
EXAMINATION TYPE: XR chest 2V DATE OF EXAM: 05/09/2020 COMPARISON: 05/01/2020 HISTORY: Short of breath and wheezing TECHNIQUE: 2 view FINDINGS: There is some blunting of the posterior costophrenic angles. There is no heart failure. The re are no hilar masses. Thoracic aorta is atheromatous. Lungs are clear of consolidation. IMPRESSION: There are small pleural effusions that are essentially new compared to old exam. No gross heart failure.
[2020-05-09 22:20] LABS: Albumin 3.7 g/dL (3.5-5.0); Calcium 8.7 mg/dL (8.4-10.2); Total Bilirubin 0.9 mg/dL (0.2-1.3); Total Protein 6.1 g/dL (6.3-8.2)
[2020-05-09 22:34] LABS: Basophils % (A) 0 %; Eosinophils # (A) 0.1 k/uL (0-0.7); Eosinophils % (A) 0 %; HCT 42.1 % (39.0-53.0); HGB 13.8 gm/dL (13.0-17.5); Lymphocytes # (A) 1.4 k/uL (1.0-4.8); Lymphocytes % (A) 7 %; MCH 32.6 pg (25.0-35.0); MCHC 32.8 g/dL (31.0-37.0); MCV 99.3 fL (80.0-100.0); Mean Platelet Volume 9.8; Monocytes # (A) 1.4 k/uL (0-1.0); Monocytes % (A) 7 %; Neutrophils # (A) 16.1 k/uL (1.3-7.7); Neutrophils % (A) 84 %; Platelet Count 214 k/uL (150-450); RBC 4.24 m/uL (4.30-5.90); RDW 13.7 % (11.5-15.5); WBC 19.3 k/uL (3.8-10.6)
[2020-05-09 22:51] LABS: INR 1.3 (<1.2); Partial Thromboplastin Time 22.1 sec (22.0-30.0); Prothrombin Time 12.8 sec (9.0-12.0)
[2020-05-09 23:00] LABS: D-Dimer 1.95 mg/L FEU (<0.60)
[2020-05-10] MEDS ORDERED: cefTRIAXone IN SWFI 1,000 MG/10 ML SYRINGE IVP STA (00:09)
[2020-05-10] MEDS ORDERED: AZITHROMYCIN 500 MG in SODIUM CHLORIDE 0.9% 250 ML IVPB STA (00:09)
[2020-05-10] MEDS ORDERED: NALOXONE 0.4 MG/ML 1 ML VIAL IV PRN (00:18)
--- NOTE | 2020-05-10 00:18 | ED ---
SOB HPI - General Chief Complaint: Shortness of Breath Stated Complaint: Diff Breathing Time Seen by Provider: 05/09/20 22:00 Source: patient Mode of arrival: ambulatory Limitations: no limitations - History of Present Illness Initial Comments: Patient is a 74 year old male with past medical history of COPD who presents emergency department with reported shortness of breath. He states has been going on for the past 3 weeks. He was seen in the emergency room for similar complaint. He did not want stay in the hospital and therefore went home. He h as seen his primary care office twice in the past week. He was started on Lasix 80 mg once daily as well as clarithromycin. He is taking medications as directed without improvement in his symptoms. He is also using his rescue inhaler. States that he has exertional shortness of breath. Denies chest pain. Denies unilateral numbness or weakness. Denies orthopnea. He has had bilateral lower extremity edema which is new for the patient. Denies history of heart failure. No history of DVT or PE. He does not wear oxygen at home. No fevers or chills. Denies cough. There are no alleviating, precipitating or modifying factors - Related Data Home Medications Medication Instructions Recorded Confirmed Melatonin 10 mg PO HS PRN 03/01/19 05/09/20 Multivitamin [Multivitamins Adult 1 tab PO DAILY 03/01/19 05/09/20 Gummies] Umeclidinium Brm/Vilanterol Tr 1 puff INHALATION RT-DAILY 03/01/19 05/09/20 [Anoro Ellipta 62.5-25 Mcg INH] clonazePAM [KlonoPIN] 0.5 mg PO HS 03/01/19 05/09/20 Albuterol Nebulized [Ventolin 2.5 mg INHALATION RT-QID 05/09/20 05/09/20 Nebulized] Clarithromycin [Biaxin] 500 mg PO BID 05/09/20 05/09/20 Furosemide [Lasix] 80 mg PO DAILY 05/09/20 05/09/20 Previous Rx's Medication Instructions Recorded Albuterol Inhaler [Ventolin Hfa 2 puff INHALATION RT-QID #2 puff 04/27/20 Inhaler] Allergies Allergy/AdvReac Type Severity Reaction Status Date / Time Sulfa (Sulfonamide Allergy Unknown Rash/Hives Verified 05/09/20 22:32 Antibiotics) tetracycline Allergy Unknown UNKNOWN- Verified 05/09/20 22:32 TAKEN FROM OR BOARDING SHEET. Review of Systems ROS Statement: Those systems with pertinent positive or pertinent negative responses have been documented in the HPI. ROS Other: All systems not noted in ROS Statement are negative. 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 History of Any Multi-Drug Resistant Organisms: None Reported Past Surgical History: Joint Replacement Additional Past Surgical History / Comment(s): rt hip replacement Past Anesthesia/Blood Transfusion Reactions: No Reported Reaction Additional Past Anesthesia/Blood Transfusion Reaction / Comment(s): Claustrophobic. Past Psychological History: No Psychological Hx Reported Smoking Status: Current every day smoker Past Alcohol Use History: None Reported, Heavy Past Drug Use History: None Reported - Past Family History Mother Family Medical History: Cancer Additional Family Medical History / Comment(s): breast cancer General Exam Limitations: no limitations General appearance: alert, in distress (mild distress secondary to increased work of breathing) Head exam: Present: atraumatic, normocephalic, normal inspection Eye exam: Present: normal appearance, PERRL, EOMI. Absent: scleral icterus, conjunctival injection, periorbital swelling ENT exam: Present: mucous membranes moist Neck exam: Present: other (jvd) Respiratory exam: Present: rales, decreased breath sounds, other (tachypnia) Cardiovascular Exam: Present: regular rate, normal rhythm, other (decreased heart tones) GI/Abdominal exam: Present: soft, distended. Absent: tenderness, guarding, hieu ound Extremities exam: Present: pedal edema Back exam: Present: normal inspection Neurological exam: Present: alert, oriented X3, CN II-XII intact Psychiatric exam: Present: normal affect, normal mood Skin exam: Present: warm, dry, intact, normal color. Absent: rash Course Vital Signs 05/09/20 05/09/20 05/09/20 21:58 22:05 22:20 Temperature 97.8 F Pulse Rate 93 90 Pulse Rate [ Left] Respiratory 28 H 26 H 20 Rate Blood Pressure 110/74 Blood Pressure [Left Arm] O2 Sat by Pulse 94 L Oximetry 05/09/20 05/09/20 05/10/20 22:29 23:34 00:43 Temperature 98.0 F Pulse Rate 89 87 Pulse Rate [ 83 Left] Respiratory 20 18 18 Rate Blood Pressure 104/78 Blood Pressure 110/72 [Left Arm] O2 Sat by Pulse 97 97 Oximetry 05/10/20 00:47 Temperature Pulse Rate 86 Pulse Rate [ Left] Respiratory 22 Rate Blood Pressure 124/87 Blood Pressure [Left Arm] O2 Sat by Pulse 97 Oximetry Medical Decision Making - Medical Decision Making Upon arrival patient was immediately placed in room 10. A thorough history and physical exam was performed. Patient hooked up to continuous pulse ox and cardiac monitoring. Patient arrived in tripod position with pursed lips. He is placed on 2 L nasal cannula. 2 duoneb treatment was performed. Patient given 125 mg Solu-Medrol 1 g of magnesium. Laboratory studies were conducted. Patient went for a chest x-ray. Laboratory studies are remarkable for white count of 19.3. D-dimer 1.95. Sodium 131. Creatinine 2.9. Lactic acid is 3. BNP 18. Troponin 0.026. Chest x-ray demonstrates a large cardiac silhouette with bilateral pleural effusions. 12 lead EKG demonstrates low voltage. Did perform a bedside ultrasound on the patient which does demonstrate a large pericardial effusion with early tamponade features. He is hemodynamically stable and shortness of breath has improved. I did discuss the case with Dr. Ortega who agreed to admit the patient. I will continue with breathing treatments and steroids overnight. I will hold off on hydrating the patient as he does demonstrate signs of fluid overload however I will not diuresis the patient because of his acute kidney injury. The patient is not heparinized due to his pericardial effusion seen on ultrasound. I did order an echo for the morning. I will also have cardiology and pulmonology see the patient. Patient was in agreement with this plan. He will be made NPO. He is then transferred to floor in stable condition - Lab Data Result diagrams: 05/15/20 06:03 05/15/20 06:03 Lab Results 05/09/20 05/09/20 05/09/20 Range/Units 22:01 22:01 22:01 WBC 19.3 H (3.8-10.6) k/uL RBC 4.24 L (4.30-5.90) m/uL Hgb 13.8 (13.0-17.5) gm/dL Hct 42.1 (39.0-53.0) % MCV 99.3 (80.0-100.0) fL MCH 32.6 (25.0-35.0) pg MCHC 32.8 (31.0-37.0) g/dL RDW 13.7 (11.5-15.5) % Plt Count 214 (150-450) k/uL Neutrophils % 84 % Lymphocytes % 7 % Monocytes % 7 % Eosinophils % 0 % Basophils % 0 % Neutrophils # 16.1 H (1.3-7.7) k/uL Lymphocytes # 1.4 (1.0-4.8) k/uL Monocytes # 1.4 H (0-1.0) k/uL Eosinophils # 0.1 (0-0.7) k/uL Basophils # 0.0 (0-0.2) k/uL PT 12.8 H (9.0-12.0) sec INR 1.3 H (<1.2) APTT 22.1 (22.0-30.0) sec D-Dimer 1.95 H (<0.60) mg/L FEU Sodium (137-145) mmol/L Potassium (3.5-5.1) mmol/L Chloride (98-107) mmol/L Carbon Dioxide (22-30) mmol/L Anion Gap mmol/L BUN (9-20) mg/dL Creatinine (0.66-1.25) mg/dL Est GFR (CKD-EPI)AfAm (>60 ml/min/1.73 sqM) Est GFR (CKD-EPI)NonAf (>60 ml/min/1.73 sqM) Glucose (74-99) mg/dL Lactic Ac Sepsis Rflx Plasma Lactic Acid Abhishek (0.7-2.0) mmol/L Calcium (8.4-10.2) mg/dL Total Bilirubin (0.2-1.3) mg/dL AST (17-59) U/L ALT (4-49) U/L Alkaline Phosphatase (38-126) U/L Creatine Kinase (55-170) U/L Troponin I (0.000-0.034) ng/mL NT-Pro-B Natriuret Pep 818 pg/mL Total Protein (6.3-8.2) g/dL Albumin (3.5-5.0) g/dL c-ANCA (<1:20) Titer p-ANCA (<1:20) Titer 05/09/20 05/09/20 05/09/20 Range/Units 22:01 22:01 22:01 WBC (3.8-10.6) k/uL RBC (4.30-5.90) m/uL Hgb (13.0-17.5) gm/dL Hct (39.0-53.0) % MCV (80.0-100.0) fL MCH (25.0-35.0) pg MCHC (31.0-37.0) g/dL RDW (11.5-15.5) % Plt Count (150-450) k/uL Neutrophils % % Lymphocytes % % Monocytes % % Eosinophils % % Basophils % % Neutrophils # (1.3-7.7) k/uL Lymphocytes # (1.0-4.8) k/uL Monocytes # (0-1.0) k/uL Eosinophils # (0-0.7) k/uL Basophils # (0-0.2) k/uL PT (9.0-12.0) sec INR (<1.2) APTT (22.0-30.0) sec D-Dimer (<0.60) mg/L FEU Sodium 131 L (137-145) mmol/L Potassium 4.0 (3.5-5.1) mmol/L Chloride 92 L (98-107) mmol/L Carbon Dioxide 26 (22-30) mmol/L Anion Gap 13 mmol/L BUN 97 H (9-20) mg/dL Creatinine 2.99 H (0.66-1.25) mg/dL Est GFR (CKD-EPI)AfAm 23 (>60 ml/min/1.73 sqM) Est GFR (CKD-EPI)NonAf 20 (>60 ml/min/1.73 sqM) Glucose 148 H (74-99) mg/dL Lactic Ac Sepsis Rflx Plasma Lactic Acid Abhishek 3.0 H* (0.7-2.0) mmol/L Calcium 8.7 (8.4-10.2) mg/dL Total Bilirubin 0.9 (0.2-1.3) mg/dL AST 120 H (17-59) U/L ALT 204 H (4-49) U/L Alkaline Phosphatase 65 (38-126) U/L Creatine Kinase 129 (55-170) U/L Troponin I 0.026 (0.000-0.034) ng/mL NT-Pro-B Natriuret Pep pg/mL Total Protein 6.1 L (6.3-8.2) g/dL Albumin 3.7 (3.5-5.0) g/dL c-ANCA (<1:20) Titer p-ANCA (<1:20) Titer 05/09/20 05/09/20 Range/Units 22:01 22:33 WBC (3.8-10.6) k/uL RBC (4.30-5.90) m/uL Hgb (13.0-17.5) gm/dL Hct (39.0-53.0) % MCV (80.0-100.0) fL MCH (25.0-35.0) pg MCHC (31.0-37.0) g/dL RDW (11.5-15.5) % Plt Count (150-450) k/uL Neutrophils % % Lymphocytes % % Monocytes % % Eosinophils % % Basophils % % Neutrophils # (1.3-7.7) k/uL Lymphocytes # (1.0-4.8) k/uL Monocytes # (0-1.0) k/uL Eosinophils # (0-0.7) k/uL Basophils # (0-0.2) k/uL PT (9.0-12.0) sec INR (<1.2) APTT (22.0-30.0) sec D-Dimer (<0.60) mg/L FEU Sodium (137-145) mmol/L Potassium (3.5-5.1) mmol/L Chloride (98-107) mmol/L Carbon Dioxide (22-30) mmol/L Anion Gap mmol/L BUN (9-20) mg/dL Creatinine (0.66-1.25) mg/dL Est GFR (CKD-EPI)AfAm (>60 ml/min/1.73 sqM) Est GFR (CKD-EPI)NonAf (>60 ml/min/1.73 sqM) Glucose (74-99) mg/dL Lactic Ac Sepsis Rflx Y Plasma Lactic Acid Abhishek (0.7-2.0) mmol/L Calcium (8.4-10.2) mg/dL Total Bilirubin (0.2-1.3) mg/dL AST (17-59) U/L ALT (4-49) U/L Alkaline Phosphatase (38-126) U/L Creatine Kinase (55-170) U/L Troponin I (0.000-0.034) ng/mL NT-Pro-B Natriuret Pep pg/mL Total Protein (6.3-8.2) g/dL Albumin (3.5-5.0) g/dL c-ANCA <1:20 (<1:20) Titer p-ANCA <1:20 (<1:20) Titer - EKG Data EKG Comments: EKG demonstrates a normal sinus rhythm with a ventricular rate of 92. MA interval 154. QRS 76. QTC of 435. No acute ST segment elevations or depressions concerning for ischemic changes Critical Care Time Critical Care Time: Yes Critical Care Time: 32 minutes Disposition Clinical Impression: COPD exacerbation, Congestive heart failure, Pericardial effusion Disposition: ADMITTED IP TO THIS HOSP Condition: Serious Is patient prescribed a controlled substance at d/c from ED?: No Decision to Admit Reason: Admit from EC Decision Date: 05/10/20 Decision Time: 00:18
[2020-05-10] MEDS: SODIUM CHLORIDE 0.9% 1,000 ML IV SCH ×2 (00:42→23:38)
[2020-05-10] MEDS ORDERED: IPRATROPIUM-ALBUTEROL 3 ML NEB INHALATION SCH (04:00)
[2020-05-10] MEDS ORDERED: SODIUM CHLORIDE 0.9% 500 ML 500 ML IV ONE ×2 (05:37→07:29)
[2020-05-10] MEDS ORDERED: FUROSEMIDE 10 MG/ML 4 ML VIAL IV STA (05:37)
[2020-05-10] MEDS: FORMOTEROL FUMARATE 20 MCG/2 ML NEBU INHALATION SCH ×2 (07:25→18:44)
[2020-05-10] MEDS ORDERED: IPRATROPIUM 0.5 MG/2.5 ML NEBU INHALATION SCH (08:00)
[2020-05-10] MEDS ORDERED: methylPREDNISolone SOD SUCCI 40 MG/ML 1 ML VIAL IV SCH (08:00)
[2020-05-10] MEDS ORDERED: FUROSEMIDE 10 MG/ML 2 ML VIAL IV ONE (10:00)
--- NOTE | 2020-05-10 10:08 | US ---
EXAMINATION TYPE: US venous doppler duplex LE DATE OF EXAM: 05/10/2020 8:55 AM COMPARISON: NONE CLINICAL HISTORY: edema. SIDE PERFORMED: Bilateral TECHNIQUE: The lower extremity deep venous system is examined utilizing real time linear array sonog harlan with graded compression, doppler sonography and color-flow sonography. VESSELS IMAGED: External Iliac Vein (EIV) Common Femoral Vein Deep Femoral Vein Greater Saphenous Vein * Femoral Vein Popliteal Vein Small Saphenous Vein * Proximal Calf Veins (* superficial vessels) Severe pitting edema. Technically difficult study. Right Leg: Negative for DVT Left Leg: Negative for DVT Grayscale, color doppler, spectral doppler imaging performed of the deep veins of the bilateral lower extremities. There is normal flow, compressibility, vascular waveforms. IMPRESSION: Early moderate diffuse subcutaneous edema greatest towards the periphery bilaterally with out acute DVT seen in either lower extremity.
[2020-05-10] MEDS: ACETAMINOPHEN TAB 500 MG TAB PO PRN ×3 (10:22→21:55)
--- NOTE | 2020-05-10 10:23 | P.GSCN ---
History of Present Illness Consult date: 05/10/20 Reason for Consult: Large pericardial effusion Requesting physician: Alexandra Miller History of present illness: This is a 74-year-old gentleman who follows on an outpatient basis with Dr. Adam Ortega for primary care and Dr. Nicole for pulmonology. He has a previous medical history of current tobacco dependence, COPD, lung nodules followed by Dr. Nicole, prostate and skin cancer with resection, and family hi story of cancer. He presented to [facility] emergency room on April 27 with complaints of shortness of breath and bilateral lower extremity edema. He denied any other symptomatology at that time. He had an x-ray demonstrating right middle lobe pneumonia, the patient did not want to be admitted so he was discharged to home on a steroid inhaler and antibiotic with plans to follow-up with Dr. Ortega. He did see Dr. Ortega in the office twice, was started on Lasix daily and clarithromycin. His shortness of breath did not improve, he was using his rescue inhaler without significant improvement. Subsequently he presented back to [facility] emergency room this morning with complaints of continuing shortness of breath. The patient denied any chest pain, dizziness, fever, chills. Apparently he was sitting in the tripod position with pursed lips in the emergency room. A bedside ultrasound was completed demonstrating large pericardial effusion. EKG was completed demonstrating normal sinus rhythm with no acute ST changes. WBC 19.3, hemoglobin 13.8, INR 1.3, BUN 97, creatinine 2.99, lactic acid 3.0, BNP 818, AST 120, ALT 204, troponin 0.026. The patient was admitted to [address] [place] [address] cardiac stepdown unit with consultation placed for cardiology and pulmonology. A bedside 2-D echo was completed this morning demonstrating a large pericardial effusion. Dr. Jimenez from cardiothoracic surgery was emergently consulted. 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 History of Any Multi-Drug Resistant Organisms: None Reported Past Surgical History: Joint Replacement Additional Past Surgical History / Comment(s): rt hip replacement Past Anesthesia/Blood Transfusion Reactions: No Reported Reaction Additional Past Anesthesia/Blood Transfusion Reaction / Comm: Claustrophobic. Past Psychological History: No Psychological Hx Reported Smoking Status: Current every day smoker Past Alcohol Use History: None Reported, Heavy Past Drug Use History: None Reported - Past Family History Mother Family Medical History: Cancer Additional Family Medical History / Comment(s): breast cancer Medications and Allergies Home Medications Medication Instructions Recorded Confirmed Type Melatonin 10 mg PO HS PRN 03/01/19 05/09/20 History Multivitamin [Multivitamins Adult 1 tab PO DAILY 03/01/19 05/09/20 History Gummies] Umeclidinium Brm/Vilanterol Tr 1 puff INHALATION RT-DAILY 03/01/19 05/09/20 History [Anoro Ellipta 62.5-25 Mcg INH] clonazePAM [KlonoPIN] 0.5 mg PO HS 03/01/19 05/09/20 History Albuterol Inhaler [Ventolin Hfa 2 puff INHALATION RT-QID #2 puff 04/27/20 05/09/20 Rx Inhaler] Albuterol Nebulized [Ventolin 2.5 mg INHALATION RT-QID 05/09/20 05/09/20 History Nebulized] Clarithromycin [Biaxin] 500 mg PO BID 05/09/20 05/09/20 History Furosemide [Lasix] 80 mg PO DAILY 05/09/20 05/09/20 History Allergies Allergy/AdvReac Type Severity Reaction Status Date / Time Sulfa (Sulfonamide Allergy Unknown Rash/Hives Verified 05/09/20 22:32 Antibiotics) tetracycline Allergy Unknown UNKNOWN- Verified 05/09/20 22:32 TAKEN FROM OR BOARDING SHEET. Surgical - Exam Vital Signs Temp Pulse Resp BP Pulse Ox 97.8 F 93 28 H 110/74 94 L 05/09/20 21:58 05/09/20 21:58 05/09/20 21:58 05/09/20 21:58 05/09/20 21:58 - General well developed, well nourished, moderate distress, no pain - Eyes PERRL, normal ocular movement - Neck no masses, no bruits, trachea midline - Respiratory Lungs sounds diminished bilaterally with coarse breath sounds heard the bases. Respirations even, slightly labored. Currently on 2 L nasal cannula with oxygen saturation 96%. - Cardiovascular S1, S2 present. Regular rate and rhythm, sinus rhythm on telemetry. Palpable peripheral pulses bilaterally. Bilateral lower extremity 2-3+ edema present. Positive JVD. - Abdomen Abdomen: soft, non tender, bowel sounds - Genitourinary Deferred - Rectum Deferred - Integumentary no rash, no growths - Neurologic normal coordination, normal sensation - Musculoskeletal normal posture - Psychiatric oriented to time, oriented to person, oriented to place, speech is normal, memory intact Results - Labs 05/09/20 22:01 05/09/20 22:01 Abnormal Lab Results - Last 24 Hours (Table) 05/09/20 05/09/20 05/09/20 Range/Units 22:01 22:01 22:01 WBC 19.3 H (3.8-10.6) k/uL RBC 4.24 L (4.30-5.90) m/uL Neutrophils # 16.1 H (1.3-7.7) k/uL Monocytes # 1.4 H (0-1.0) k/uL PT 12.8 H (9.0-12.0) sec INR 1.3 H (<1.2) D-Dimer 1.95 H (<0.60) mg/L FEU Sodium 131 L (137-145) mmol/L Chloride 92 L (98-107) mmol/L BUN 97 H (9-20) mg/dL Creatinine 2.99 H (0.66-1.25) mg/dL Glucose 148 H (74-99) mg/dL Plasma Lactic Acid Abhishek (0.7-2.0) mmol/L AST 120 H (17-59) U/L ALT 204 H (4-49) U/L Total Protein 6.1 L (6.3-8.2) g/dL 05/09/20 05/10/20 Range/Units 22:01 01:07 WBC (3.8-10.6) k/uL RBC (4.30-5.90) m/uL Neutrophils # (1.3-7.7) k/uL Monocytes # (0-1.0) k/uL PT (9.0-12.0) sec INR (<1.2) D-Dimer (<0.60) mg/L FEU Sodium (137-145) mmol/L Chloride (98-107) mmol/L BUN (9-20) mg/dL Creatinine (0.66-1.25) mg/dL Glucose (74-99) mg/dL Plasma Lactic Acid Abhishek 3.0 H* 2.2 H* (0.7-2.0) mmol/L AST (17-59) U/L ALT (4-49) U/L Total Protein (6.3-8.2) g/dL Diabetes panel 05/09/20 Range/Units 22:01 Sodium 131 L (137-145) mmol/L Potassium 4.0 (3.5-5.1) mmol/L Chloride 92 L (98-107) mmol/L Carbon Dioxide 26 (22-30) mmol/L BUN 97 H (9-20) mg/dL Creatinine 2.99 H (0.66-1.25) mg/dL Glucose 148 H (74-99) mg/dL Calcium 8.7 (8.4-10.2) mg/dL AST 120 H (17-59) U/L ALT 204 H (4-49) U/L Alkaline Phosphatase 65 (38-126) U/L Total Protein 6.1 L (6.3-8.2) g/dL Albumin 3.7 (3.5-5.0) g/dL Calcium panel 05/09/20 Range/Units 22:01 Calcium 8.7 (8.4-10.2) mg/dL Albumin 3.7 (3.5-5.0) g/dL Pituitary panel 05/09/20 Range/Units 22:01 Sodium 131 L (137-145) mmol/L Potassium 4.0 (3.5-5.1) mmol/L Chloride 92 L (98-107) mmol/L Carbon Dioxide 26 (22-30) mmol/L BUN 97 H (9-20) mg/dL Creatinine 2.99 H (0.66-1.25) mg/dL Glucose 148 H (74-99) mg/dL Calcium 8.7 (8.4-10.2) mg/dL Adrenal panel 05/09/20 Range/Units 22:01 Sodium 131 L (137-145) mmol/L Potassium 4.0 (3.5-5.1) mmol/L Chloride 92 L (98-107) mmol/L Carbon Dioxide 26 (22-30) mmol/L BUN 97 H (9-20) mg/dL Creatinine 2.99 H (0.66-1.25) mg/dL Glucose 148 H (74-99) mg/dL Calcium 8.7 (8.4-10.2) mg/dL Total Bilirubin 0.9 (0.2-1.3) mg/dL AST 120 H (17-59) U/L ALT 204 H (4-49) U/L Alkaline Phosphatase 65 (38-126) U/L Total Protein 6.1 L (6.3-8.2) g/dL Albumin 3.7 (3.5-5.0) g/dL - Imaging Chest x-ray: report reviewed, image reviewed EKG: image reviewed Additional studies: Echocardiogram was reviewed with Dr. Jimenez Assessment and Plan Assessment: 1. Large pericardial effusion 2. Current tobacco dependence, stop smoking 2 weeks ago 3. COPD 4. Lung nodules followed by Dr. Nicole 5. History of prostate and skin cancer with resection family history of cancer Plan: The patient was seen and examined urgently at the bedside with Dr. Jimenez. Chart/diagnostics reviewed. Recommendation was for urgent percutaneous pericardial drainage with echo guidance. Risks and benefits were explained to the patient and his , all questions were answered, and the patient did consent. 850 mL bloody pericardial fluid was drained and sent for cytology, LDH, protein, glucose. The patient did state his breathing felt slightly better. The drain was sutured in place and we will attempt to drain again in 6 hours. More recommendations to follow for further management. Management of other medical comorbidities per primary care, cardiology, pulmonology. Thank you for this consult. We look forward to following with you in the care of this patient. Time with Patient: Greater than 30
--- NOTE | 2020-05-10 10:30 | ECHOF ---
Referral Reason:LV function MEASUREMENTS -------- HEIGHT: 182.9 cm WEIGHT: 97.1 kg BP: 125/66 RVIDd: 3.2 cm (< 3.3) IVSd: 1.7 cm (0.6 - 1.1) LVIDd: 2.7 cm (3.9 - 5.3) LVPWd: 1.2 cm (0.6 - 1.1) IVSs: 1.3 cm LVIDs: 2.2 cm LVPWs: 1.3 cm Ao Diam: 3.6 cm (2.0 - 3.7) AV Cusp: 1.8 cm (1.5 - 2.6) FINDINGS -------- Sinus rhythm. This was a technically difficult study with suboptimal views. Pt. Very Sob The left ventricular size is normal. There is moderate concentric left ventricular hypertrophy. T here is mild global hypokinesis of LV . Overall left ventricular systolic function is mild-moderate ly impaired with, an EF between 40 - 45 %. The right ventricle is normal in size. The left atrium was not well visualized. The right atrial size is normal. Interatrial and interventricular septum intact. The aortic valve was not well visualized. There is no evidence of aortic regurgitation. There is no evidence of aortic stenosis. The mitral valve was not well visualized. No mitral regurgitation. The tricuspid valve was not well visualized. Unable to estimate RVSP due to inadequate TR jet spect ral doppler profile. The pulmonic valve was not well visualized. The aortic root size is normal. The inferior vena cava is dilated with no significant inspiratory collapse which is consistent estima biju right atrial pressure of >20 mmHg. Large global pericardial effusion CONCLUSIONS -------- 1. Sinus rhythm. 2. This was a technically difficult study with suboptimal views. 3. Pt. Very Sob 4. The left ventricular size is normal. 5. There is moderate concentric left ventricular hypertrophy. 6. There is mild global hypokinesis of LV . 7. Overall left ventricular systolic function is mild-moderately impaired with, an EF between 40 - 45 %. 8. The right ventricle is normal in size. 9. The left atrium was not well visualized. 10. The right atrial size is normal. 11. Interatrial and interventricular septum intact. 12. The aortic valve was not well visualized. 13. There is no evidence of aortic regurgitation. 14. There is no evidence of aortic stenosis. 15. The mitral valve was not well visualized. 16. No mitral regurgitation. 17. The tricuspid valve was not well visualized. 18. Unable to estimate RVSP due to inadequate TR jet spectral doppler profile. 19. The pulmonic valve was not well visualized. 20. The aortic root size is normal. 21. The inferior vena cava is dilated with no significant inspiratory collapse which is consistent es timated right atrial pressure of >20 mmHg. 22. Large global pericardial effusion without tamponade POT FEEDER: Sidra Douglas RDCS
[2020-05-10] MEDS ORDERED: IPRATROPIUM-ALBUTEROL 3 ML NEB INHALATION PRN (10:38)
[2020-05-10] MEDS: IPRATROPIUM-ALBUTEROL 3 ML NEB INHALATION SCH ×3 (11:21→18:44)
--- NOTE | 2020-05-10 11:30 | P.CRDCN ---
History of Present Illness Consult date: 05/10/20 Requesting physician: Adam Ortega Jr Consult reason: shortness of breath Chief complaint: Shortness of breath History of present illness: This is a 74-year-old gentleman with documented history of COPD, he also has a history of smoking for several years, he quit 2 weeks ago. He is b eing also worked up as an outpatient for some lung nodules by pulmonary care. No documented history of hypertension, he is a nondiabetic, no hyperlipidemia. He presents to the hospital with symptoms of progressively worsening shortness of breath over a 2 week duration. Up until that time patient was quite active, was still golfing without any difficulties. His chest x-ray on presentation here showed a left sided pleural effusion, EKG normal sinus rhythm with no acute changes noted. Blood pressure 125/68, heart rate in the 80s, respirations 18, 95% on 2 L of oxygen. Venous duplex study was performed which was negative for DVT. White blood cell count 19.3, hemoglobin 13.8, platelet count 214. D-dimer 1.9, sodium 131, potassium 4.0, BUN 97, creatinine 2.9. Of note, patient's creatinine on the fourth of this month 1.2. Plasma lactic acid on admission 3.0, AST 120, ALT 204, alk phos 65, BNP level 818. Troponin 0.026, 0.028. At the time of my examination patient was quite short of breath, having to sit up straight in bed to be able to breathe, elevated jugular venous pressure to the angle of the jaw. Significant bilateral peripheral edema. A stat echocardiogram with Doppler study was requested, the echo was being performed while Dr. Ventura was in the room and it was noted that the patient had a large size pericardial effusion. Cardiothoracic surgery has been consulted to see the patient for possible pericardiocentesis. 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 History of Any Multi-Drug Resistant Organisms: None Reported Past Surgical History: Joint Replacement Additional Past Surgical History / Comment(s): rt hip replacement Past Anesthesia/Blood Transfusion Reactions: No Reported Reaction Additional Past Anesthesia/Blood Transfusion Reaction / Comment(s): Claustrophobic. Past Psychological History: No Psychological Hx Reported Smoking Status: Current every day smoker Past Alcohol Use History: None Reported, Heavy Past Drug Use History: None Reported - Past Family History Mother Family Medical History: Cancer Additional Family Medical History / Comment(s): breast cancer Medications and Allergies Home Medications Medication Instructions Recorded Confirmed Type Melatonin 10 mg PO HS PRN 03/01/19 05/09/20 History Multivitamin [Multivitamins Adult 1 tab PO DAILY 03/01/19 05/09/20 History Gummies] Umeclidinium Brm/Vilanterol Tr 1 puff INHALATION RT-DAILY 03/01/19 05/09/20 History [Anoro Ellipta 62.5-25 Mcg INH] clonazePAM [KlonoPIN] 0.5 mg PO HS 03/01/19 05/09/20 History Albuterol Inhaler [Ventolin Hfa 2 puff INHALATION RT-QID #2 puff 04/27/20 05/09/20 Rx Inhaler] Albuterol Nebulized [Ventolin 2.5 mg INHALATION RT-QID 05/09/20 05/09/20 History Nebulized] Clarithromycin [Biaxin] 500 mg PO BID 05/09/20 05/09/20 History Furosemide [Lasix] 80 mg PO DAILY 05/09/20 05/09/20 History Allergies Allergy/AdvReac Type Severity Reaction Status Date / Time Sulfa (Sulfonamide Allergy Unknown Rash/Hives Verified 05/09/20 22:32 Antibiotics) tetracycline Allergy Unknown UNKNOWN- Verified 05/09/20 22:32 TAKEN FROM OR BOARDING SHEET. Physical Exam Vitals: Vital Signs Temp Pulse Pulse Resp BP BP Pulse Ox 05/10/20 08:05 98.2 F 92 22 120/72 96 05/10/20 07:49 84 05/10/20 07:36 88 05/10/20 07:35 88 05/10/20 07:25 88 05/10/20 04:00 98.3 F 83 18 125/66 95 05/10/20 02:00 18 05/10/20 00:47 86 22 124/87 97 05/10/20 00:43 98.0 F 83 18 110/72 97 05/09/20 23:34 87 18 104/78 97 05/09/20 22:29 89 20 05/09/20 22:20 90 20 05/09/20 22:05 26 H 05/09/20 21:58 97.8 F 93 28 H 110/74 94 L Intake and Output 05/09/20 05/10/20 05/10/20 22:59 06:59 14:59 Intake Total 240 Output Total 0 200 Balance 0 40 Intake: Oral 240 Output: Urine 0 200 Other: Voiding Method Urinal Urinal Diaper Weight 94.347 kg 97.5 kg PHYSICAL EXAMINATION: GENERAL: 74-year-old gentleman in no acute distress at the time of my examination HEENT: Head is atraumatic, normocephalic. Pupils equal, round. Sclera anicteric. Conjunctiva are clear. Mucous membranes of the mouth are moist. Neck is supple. There is elevated jugular venous pressure up to the angle of the jaw. No carotid bruit is heard. HEART EXAMINATION: Heart S1, S2 normal. No murmur or gallop heard. CHEST EXAMINATION: Lungs reveal diminished air entry to the bases bilaterally, right greater than left. ABDOMEN: Soft, mildly distended . Bowel sounds are heard. No organomegaly noted. EXTREMITIES: 2+ peripheral pulses with 2+ evidence of peripheral edema and no calf tenderness noted. NEUROLOGIC patient is awake, alert and oriented 3 . Results 05/09/20 22:01 05/09/20 22:01 Cardiac Enzymes 05/09/20 05/09/20 05/10/20 Range/Units 22:01 22:01 03:31 AST 120 H (17-59) U/L Troponin I 0.026 0.028 (0.000-0.034) ng/mL Coagulation 05/09/20 Range/Units 22:01 PT 12.8 H (9.0-12.0) sec APTT 22.1 (22.0-30.0) sec CBC 05/09/20 Range/Units 22:01 WBC 19.3 H (3.8-10.6) k/uL RBC 4.24 L (4.30-5.90) m/uL Hgb 13.8 (13.0-17.5) gm/dL Hct 42.1 (39.0-53.0) % Plt Count 214 (150-450) k/uL Comprehensive Metabolic Panel 05/09/20 Range/Units 22:01 Sodium 131 L (137-145) mmol/L Potassium 4.0 (3.5-5.1) mmol/L Chloride 92 L (98-107) mmol/L Carbon Dioxide 26 (22-30) mmol/L BUN 97 H (9-20) mg/dL Creatinine 2.99 H (0.66-1.25) mg/dL Glucose 148 H (74-99) mg/dL Calcium 8.7 (8.4-10.2) mg/dL AST 120 H (17-59) U/L ALT 204 H (4-49) U/L Alkaline Phosphatase 65 (38-126) U/L Total Protein 6.1 L (6.3-8.2) g/dL Albumin 3.7 (3.5-5.0) g/dL Current Medications Generic Name Dose Route Start Last Admin Trade Name Freq PRN Reason Stop Dose Admin Acetaminophen 1,000 mg 05/10/20 09:49 05/10/20 10:22 Tylenol Tab PO 1,000 mg Q6HR PRN Administration Fever and/ or Pain Albuterol/Ipratropium 3 ml 05/10/20 10:38 Duoneb 0.5 Mg-3 Mg/3 Ml Soln INHALATION RT-QID PRN Shortness Of Breath Or Wheezing Albuterol/Ipratropium 3 ml 05/10/20 12:00 Duoneb 0.5 Mg-3 Mg/3 Ml Soln INHALATION RT-QID RUPERTO Clonazepam 0.5 mg 05/10/20 21:00 Klonopin PO HS RUPERTO Formoterol Fumarate 20 mcg 05/10/20 08:00 05/10/20 07:25 Perforomist INHALATION 20 mcg RT-BID RUPERTO Administration Sodium Chloride 1,000 mls @ 20 mls/hr 05/10/20 00:30 05/10/20 00:42 Saline 0.9% IV 20 mls/hr .Q24H RUPERTO Administration Naloxone HCl 0.2 mg 05/10/20 00:18 Narcan IV Q2M PRN Opioid Reversal Intake and Output 05/09/20 05/10/20 05/10/20 22:59 06:59 14:59 Intake Total 240 Output Total 0 200 Balance 0 40 Intake: Oral 240 Output: Urine 0 200 Other: Voiding Method Urinal Urinal Diaper Weight 94.347 kg 97.5 kg 05/09/20 22:01 05/09/20 22:01 EKG Interpretations (text) EKG shows a normal sinus rhythm with no acute changes noted. Assessment and Plan Plan: Assessment and plan #1 symptoms of two-week duration of progressively worsening shortness of breath, with evidence of a large pericardial effusion on echocardiogram. Cardiothoracic surgery has been consulted for possible pericardiocentesis #2 Hx of COPD #3 Lung nodules, being followed as an outpatient by Dr. Nicole #4 nicotine dependence, patient quit smoking 2 weeks ago #5 history of prostate and skin cancer #6 acute renal insufficiency, likely secondary to diuresis Plan We will continue with IV fluids at 100 mL per hour, cardiothoracic surgery have been consulted for possible pericardiocentesis. Pulmonary and nephrology also consulted. Further recommendations to follow. DNP note has been reviewed, I agree with a documented findings and plan of care. Patient was seen and examined.
[2020-05-10 13:58] LABS: Phosphorus 6.8 mg/dL (2.5-4.5)
--- NOTE | 2020-05-10 15:07 | P.HPIM ---
History of Present Illness H&P Date: 05/10/20 Chief Complaint: Shortness of breath 05/09/2020 74-year-old male patient presented emergency room ambulatory chief complaint of shortness of breath. In ER chest x-ray showed small pleural effusions are essentially new compared to all exam no gross heart failure. He has had a long-standing history of COPD, and noted history of smoking. He quit approximately 3 weeks ago at the onset of current symptoms. He was seen in emergency room for similar complaint earlier in the month and he has been seen in the office twice once for ER follow-up and the other for recheck. From the office he was started on 80 mg of Lasix as well as clarithromycin. With taking medications he stated there was no improvement in his symptoms and his fatigue worsened. He was also ordered a rescue inhaler but had minimal improvement with its use. He denied chest pain, unilateral numbness or weakness, orthopnea. Continue to have bilateral lower extremity peripheral edema. He has no history of hypertension, DVT or PE, denies history of heart failure, does not utilized home O2, denies fever or chills. He he denied cough and arrival in ER. Past medical history of cancer, COPD, heart appearing as related to being in the , prostate disorder, every day smoker up until current sickness. Is also noted to have a right hip. Echocardiogram this morning showed ejection fraction 40-45% with very mild left ventricular hypokinesis. Is also noted to have large global pericardial effusion without tamponade. Appears cardiology was on hand at time of echo and consulted cardiothoracic for evaluation. Dr. Jimenez saw patient in room and performed a percutaneous pericardial drainage with echo guidance in which he 850 ml of bloody pericardial fluid was drained and sent for cytology, LDH, protein, glucose. Venous Doppler duplex lower summary bilaterally was completed today impression showed early to moderate diffuse subcutaneous edema greatest towards the periphery bilaterally without acute DVT in either extremity. Current labs WBC of 19.3, hemoglobin 13.8, hematocrit 42.1, platelet count 214, neutrophils 16.1, monocytes 1.4, PT of 12.8, INR 1.3, d-dimer 1.95. Chemistry revealed a sodium 131, potassium 4.0, chloride 92, bun 97, creatinine of 2.99, lactic acid initially was 3.0 and resuscitated down to 1.9. AST 120, Whitney T O'Bradley for, initial troponin 0.0-6, which elevated later to 0.083. Most recent chart of vitals afebrile 98.2, pulse rate of 92 normal sinus rhythm, respiratory rate of 22, blood pressure 120/72, oxygen saturation 96% on 2 L nasal cannula. Review of Systems Constitutional: Reports as per HPI, Reports fatigue, Reports weight gain Ears, nose, mouth and throat: Reports as per HPI Cardiovascular: Reports dyspnea on exertion, Reports leg edema, Reports orthopnea, Reports shortness of breath Respiratory: Reports as per HPI, Reports congestion, Reports cough, Reports respiratory infections Gastrointestinal: Reports as per HPI Genitourinary: Reports as per HPI, Reports urinary retention Musculoskeletal: Reports as per HPI Integumentary: Reports as per HPI Neurological: Reports as per HPI Psychiatric: Reports as per HPI Endocrine: Reports as per HPI Hematologic/Lymphatic: Reports as per HPI Allergic/Immunologic: Reports as per HPI Past Medical History Past Medical History: Cancer, COPD, Hearing Disorder / Deafness, Prostate Disorder Additional Past Medical History / Comment(s): hx skin cancer, prostate cancer (2016)., 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 History of Any Multi-Drug Resistant Organisms: None Reported Past Surgical History: Joint Replacement Additional Past Surgical History / Comment(s): rt hip replacement Past Anesthesia/Blood Transfusion Reactions: No Reported Reaction Additional Past Anesthesia/Blood Transfusion Reaction / Comment(s): Claustrophobic. Past Psychological History: No Psychological Hx Reported Smoking Status: Current every day smoker Past Alcohol Use History: None Reported, Heavy Past Drug Use History: None Reported - Past Family History Mother Family Medical History: Cancer Additional Family Medical History / Comment(s): breast cancer Medications and Allergies Home Medications Medication Instructions Recorded Confirmed Type Melatonin 10 mg PO HS PRN 03/01/19 05/09/20 History Multivitamin [Multivitamins Adult 1 tab PO DAILY 03/01/19 05/09/20 History Gummies] Umeclidinium Brm/Vilanterol Tr 1 puff INHALATION RT-DAILY 03/01/19 05/09/20 History [Anoro Ellipta 62.5-25 Mcg INH] clonazePAM [KlonoPIN] 0.5 mg PO HS 03/01/19 05/09/20 History Albuterol Inhaler [Ventolin Hfa 2 puff INHALATION RT-QID #2 puff 04/27/20 05/09/20 Rx Inhaler] Albuterol Nebulized [Ventolin 2.5 mg INHALATION RT-QID 05/09/20 05/09/20 History Nebulized] Clarithromycin [Biaxin] 500 mg PO BID 05/09/20 05/09/20 History Furosemide [Lasix] 80 mg PO DAILY 05/09/20 05/09/20 History Allergies Allergy/AdvReac Type Severity Reaction Status Date / Time Sulfa (Sulfonamide Allergy Unknown Rash/Hives Verified 05/09/20 22:32 Antibiotics) tetracycline Allergy Unknown UNKNOWN- Verified 05/09/20 22:32 TAKEN FROM OR BOARDING SHEET. Physical Exam Vitals: Vital Signs Temp Pulse Pulse Resp BP BP Pulse Ox 05/10/20 11:33 84 05/10/20 11:21 80 05/10/20 08:05 98.2 F 92 22 120/72 96 05/10/20 07:49 84 05/10/20 07:36 88 05/10/20 07:35 88 05/10/20 07:25 88 05/10/20 04:00 98.3 F 83 18 125/66 95 05/10/20 02:00 18 05/10/20 00:47 86 22 124/87 97 05/10/20 00:43 98.0 F 83 18 110/72 97 05/09/20 23:34 87 18 104/78 97 05/09/20 22:29 89 20 05/09/20 22:20 90 20 05/09/20 22:05 26 H 05/09/20 21:58 97.8 F 93 28 H 110/74 94 L Intake and Output 05/09/20 05/10/20 05/10/20 22:59 06:59 14:59 Intake Total 240 Output Total 0 200 Balance 0 40 Intake: Oral 240 Output: Urine 0 200 Other: Voiding Method Urinal Urinal Diaper Weight 94.347 kg 97.5 kg GENERAL: Well-appearing, well-nourished and in no acute distress. HEAD: Atraumatic, normocephalic. EYES: Pupils equal round and reactive to light, extraocular movements intact, sclera anicteric, conjunctiva are normal. ENT:nares patent, oropharynx clear without exudates. Moist mucous membranes. NECK: Normal range of motion, supple without lymphadenopathy or JVD, no thyromegaly LUNGS: Breath sounds diminished throughout. Loose cough, No wheezes rales or rhonchi. HEART: Regular rate and rhythm without murmurs, rubs or gallops.S1S2 Normal ABDOMEN: Soft, nontender, normoactive bowel sounds. No guarding, no rebound. No masses appreciated. EXTREMITIES: Normal range of motion, +2-3 pitting edema bilateral lower extremities from knees to toes. No clubbing or cyanosis. NEUROLOGICAL: Cranial nerves II through XII grossly intact. Normal speech, . PSYCH: Normal mood, normal affect. SKIN: Warm, Dry, normal turgor, no rashes or lesions noted. Results CBC & Chem 7: 05/09/20 22:05/09/20 22:01 Labs: Abnormal Lab Results - Last 24 Hours (Table) 05/09/20 05/09/20 05/09/20 Range/Units 22:01 22:01 22:01 WBC 19.3 H (3.8-10.6) k/uL RBC 4.24 L (4.30-5.90) m/uL Neutrophils # 16.1 H (1.3-7.7) k/uL Monocytes # 1.4 H (0-1.0) k/uL PT 12.8 H (9.0-12.0) sec INR 1.3 H (<1.2) D-Dimer 1.95 H (<0.60) mg/L FEU Sodium 131 L (137-145) mmol/L Chloride 92 L (98-107) mmol/L BUN 97 H (9-20) mg/dL Creatinine 2.99 H (0.66-1.25) mg/dL Glucose 148 H (74-99) mg/dL Plasma Lactic Acid Abhishek (0.7-2.0) mmol/L Phosphorus (2.5-4.5) mg/dL AST 120 H (17-59) U/L ALT 204 H (4-49) U/L Troponin I (0.000-0.034) ng/mL Total Protein 6.1 L (6.3-8.2) g/dL 05/09/20 05/10/20 05/10/20 Range/Units 22:01 01:07 03:31 WBC (3.8-10.6) k/uL RBC (4.30-5.90) m/uL Neutrophils # (1.3-7.7) k/uL Monocytes # (0-1.0) k/uL PT (9.0-12.0) sec INR (<1.2) D-Dimer (<0.60) mg/L FEU Sodium (137-145) mmol/L Chloride (98-107) mmol/L BUN (9-20) mg/dL Creatinine (0.66-1.25) mg/dL Glucose (74-99) mg/dL Plasma Lactic Acid Abhishek 3.0 H* 2.2 H* (0.7-2.0) mmol/L Phosphorus 6.8 H (2.5-4.5) mg/dL AST (17-59) U/L ALT (4-49) U/L Troponin I (0.000-0.034) ng/mL Total Protein (6.3-8.2) g/dL 05/10/20 Range/Units 10:33 WBC (3.8-10.6) k/uL RBC (4.30-5.90) m/uL Neutrophils # (1.3-7.7) k/uL Monocytes # (0-1.0) k/uL PT (9.0-12.0) sec INR (<1.2) D-Dimer (<0.60) mg/L FEU Sodium (137-145) mmol/L Chloride (98-107) mmol/L BUN (9-20) mg/dL Creatinine (0.66-1.25) mg/dL Glucose (74-99) mg/dL Plasma Lactic Acid Abhishek (0.7-2.0) mmol/L Phosphorus (2.5-4.5) mg/dL AST (17-59) U/L ALT (4-49) U/L Troponin I 0.083 H* (0.000-0.034) ng/mL Total Protein (6.3-8.2) g/dL Thrombosis Risk Factor Assmnt - DVT/VTE Prophylaxis DVT/VTE Prophylaxis: Mechanical Prophylaxis ordered - Choose All That Apply Each Factor Represents 1 point: Serious lung disease incl. pneumonia (< 1month) Other Risk Factors: Yes Each Risk Factor Represents 2 Points: Age 61-74 years Other congenital or acquired thrombophilia - If yes, enter type in comment: No Thrombosis Risk Factor Assessment Total Risk Factor Score: 3 Thrombosis Risk Factor Assessment Level: Moderate Risk Assessment and Plan (1) Pericardial effusion without cardiac tamponade Current Visit: Yes Status: Acute Code(s): I31.3 - PERICARDIAL EFFUSION (NONINFLAMMATORY) SNOMED Code(s): 500310366 (2) Acute kidney injury Current Visit: Yes Status: Acute Code(s): N17.9 - ACUTE KIDNEY FAILURE, UNSPECIFIED SNOMED Code(s): 22704794 (3) COPD exacerbation Current Visit: Yes Status: Acute Code(s): J44.1 - CHRONIC OBSTRUCTIVE PULMONARY DISEASE W (ACUTE) EXACERBATION SNOMED Code(s): 847230888 (4) Pneumonia Current Visit: No Status: Acute Code(s): J18.9 - PNEUMONIA, UNSPECIFIED ORGANISM SNOMED Code(s): 159305366 (5) Shortness of breath Current Visit: Yes Status: Acute Code(s): R06.02 - SHORTNESS OF BREATH SNOMED Code(s): 830268932 (6) Edema, peripheral Current Visit: Yes Status: Acute Code(s): R60.9 - EDEMA, UNSPECIFIED SNOMED Code(s): 017547100 Plan: 1. Repeat echo today 2. Gentle rehydration with IV fluid. 3. Order labs and x-ray for tomorrow. 4. Monitor vital signs. 5. Follow cardiology recommendations. 6. Continue to follow cardiothoracic recommendations. 7. We'll continue to follow closely and reassess again tomorrow. Time with Patient: Greater than 30
--- NOTE | 2020-05-10 15:08 | US ---
EXAMINATION TYPE: US kidneys/renal and bladder DATE OF EXAM: 05/10/2020 COMPARISON: NONE CLINICAL HISTORY: 74-year-old male renal failure, AECOPD TECHNIQUE: Multiple sonographic images of the kidneys and bladder are obtained. FINDINGS: EXAM MEASUREMENTS: Right Kidney: 12.0 x 5.3 x 4.9 cm Left Kidney: 11.9 x 7.4 x 6.1 cm Post Void Residual Volume: not assessed on inpatient No hydronephrosis on either side. Bladder: Partially distended but with bladder wall thickening up to 1.3 cm. Bilateral Jets seen: very small ureteral jets were seen Incidental US findings: small amount of ascites is noted at liver and spleen levels; left pleural eff usion is measured at 8.9cm A/P. IMPRESSION: 1. Mild abdominopelvic ascites. Clinically correlate as to etiology. There is also an underlying left pleural effusion noted. 2. No hydronephrosis. 3. Circumferential bladder wall thickening could represent chronic bladder wall hypertrophy or cystit is. Clinically correlate.
--- NOTE | 2020-05-10 15:35 | CONS ---
CONSULTATION PULMONARY/CRITICAL CARE CONSULTATION: 05/10/2020 REASON FOR CONSULTATION: Shortness of breath. A 74-year-old male who apparently was in the emergency room relatively recently with similar complaints of shortness of breath. He apparently either did not want to stay or was discharged from the emergency room with some medications. He states for the last 2-3 weeks or so, he has he has been having increasing and progressive shortness of breath. The patient was seen in his doctor's office recently and prescribed some Lasix 80 mg and also some azithromycin. He apparently has been taking medications without improvement. His shortness of breath is mostly exertional, but also occurs at rest. He denies any chest pain or pressure. He denied any fever or chills. He denies any nausea, vomiting, diarrhea, or abdominal pain. The patient did have some worsening of his lower extremity edema over the last couple of weeks as well. It is as bad now as it has been. The patient denies genitourinary complaints. When I went into the room to see the patient, he was having procedure done at the bedside. He had a pericardial catheter placed, actually with a central venous catheter used as the pericardial catheter. Echocardiogram apparently showed a very large pericardial effusion and roughly 900 mL of bloody material was removed from the pericardial space. Dr. Jimenez did the procedure and he was assisted by Marissa Green who is one of the cardiothoracic nurse practitioners. Anyway, the patient had the catheter left in place and was going to stay for at least a day or two. Apparently, the followup echocardiogram showed significant improvement in the pericardial effusion. Another interesting part about this patient's history that apparently has been followed by my partner Dr. Nicole for more than 2 years. There has been some pulmonary nodules they have been following. He initially had a low dose CT scan followed by standard CT of the chest and then a PET scan. Dr. Nicole was convinced based on the note in mid to late 2018 that the lesions in his chest were stable and probably represented scar and the patient confirmed that. The patient has a followup appointment with Dr. Nicole in June. HOME MEDICATIONS: Reviewed. He is on melatonin, multivitamins, Anoro which is a combination of long- acting muscarinic antagonist and long-acting beta agonist, Klonopin, albuterol, Biaxin, and Lasix. The Biaxin and Lasix were recently given to him. In addition, he does have an albuterol/Ventolin HFA inhaler. ALLERGIES: Include SULFA ANTIBIOTICS and TETRACYCLINES. PAST MEDICAL HISTORY: Reviewed. He has a history of skin cancer, COPD, deafness, prostate cancer, sleep apnea syndrome, claustrophobia, and restless legs syndrome. SURGICAL HISTORY: Includes right hip replacement. SOCIAL HISTORY: Positive for 57 years of tobacco use at 1 and 2 packs a day. Denies an alcohol use and denies any illicit drug use. FAMILY HISTORY: Positive for mother with breast cancer. REVIEW OF SYSTEMS: CONSTITUTIONAL: Weakness and fatigue. NEUROLOGIC: Negative. HEENT: Negative. CARDIOVASCULAR: Negative. PULMONARY: Shortness of breath, progressive mostly on exertion. GI: Negative. : Negative. RHEUMATOLOGIC: Negative. IMMUNOLOGIC: Negative. ENDOCRINOLOGIC: Negative. DERMATOLOGIC: Negative. It should be pointed out that his leg swelling and weight gain has significant over the last couple of weeks as well. Current vital signs are reviewed, temperature is 98.2, heart rate 92, respiratory rate 20, blood pressure 120/72 mean 88, 2 L saturation 96%. Appears in no acute distress. HEENT: Examination is grossly unremarkable. Nasal O2 in place at 2 L. NECK: Supple, full range of motion. No adenopathy. Neck veins are very distended. CARDIOVASCULAR: Examination reveals distant heart sounds. Heart rate about 92 beats per minute. S1, S2 normal. There is no clear-cut murmur. Heart sounds are muffled. LUNGS: Reveal a few scattered rhonchi. No wheezes or crackles. ABDOMEN: Soft, bowel sounds are heard. EXTREMITIES: Intact. There is some significant edema. There is no cyanosis or clubbing. SKIN: Without rash. NEUROLOGIC: Examination is brief but nonfocal. LABORATORY DATA: Reviewed. White count 19.3, hemoglobin 13.8, hematocrit 42.1, platelet count 214,000. PT 12.8, INR 1.3. D-dimer 1.958, PTT normal. Sodium 131, potassium 4, chloride 92, CO2 is 26, anion gap is 13. BUN and creatinine were 97 and 2.99. Plasma lactic acid was 3. White count 2.2. AST 120, ALT 204. N terminal proBNP is 818. Troponin 0.026. Albumin is 3.7. Chest x-ray done at the time of admission showed very tiny effusions. EKG showed low voltage that would be consistent with the pericardial effusion. Venous Doppler studies were negative for DVT in the bilateral lower extremities. Medications are reviewed. Currently he is on Tylenol, Klonopin, Perforomist, Atrovent, Solu-Medrol, Narcan. ASSESSMENT: 1. Profound shortness of breath over about a 3 week period of time, likely related to underlying pericardial effusion, status post pericardiocentesis with about 800-900 mL of bloody fluid removed. 2. Stable pulmonary nodule, being followed by my partner. 3. History of ongoing tobacco use with nicotine addiction of 57 years. 4. Significant lower extremity edema. 5. Chronic obstructive pulmonary disease. 6. No evidence of deep venous thrombosis. 7. History of deafness. 8. History of skin cancer. 9. History of prostate cancer. 10.Restless leg syndrome. 11.Claustrophobia, chronic. PLAN: The patient had a pericardial drainage placed by Dr. Jimenez. 800-900 mL of bloody fluid removed. This will be sent for analysis. The patient's pulmonary nodules are being followed by my partner, Dr. Nicole. His last note stated that the nodules were stable and the patient confirmed the fact that Dr. Nicole thought these nodules likely represent a scar. He has a followup appointment with Dr. Nicole in June. Will continue to follow closely. The fluid should be sent for cytology. Additional recommendations and suggestions are forthcoming. His COPD medications will be adjusted. MMODL / IJN: [id number] /
[2020-05-10] MEDS: FUROSEMIDE 10 MG/ML 4 ML VIAL IV SCH ×2 (15:36→23:38)
--- NOTE | 2020-05-10 16:05 | CONS ---
CONSULTATION REASON FOR CONSULT: Renal failure. HISTORY OF PRESENT ILLNESS: Patient is a 74-year-old male who was admitted to the hospital with complaints of shortness of breath and increased lower extremity edema which had been going on for about 2-1/2 weeks prior to admission. According to the patient and his family, he does have underlying COPD, but has not had any other significant medical issues previously. There is no history of kidney diseases previously. Patient states that his urine output has decreased over the last couple of days. He does take Lasix at home and there is no history of fever or cough. No abdominal pain, diarrhea, nausea or vomiting. No history of use of NSAIDs and blood pressure has been slightly on the lower side, although not significantly low. Has been above 100 for systolic blood pressure. At home patient was not on any BLOSSOM inhibitors and angiotensin receptor blockers or NSAIDs. PAST MEDICAL HISTORY: Significant for COPD, history of prostatic cancer status post prostatectomy, claustrophobia, hearing loss, osteoarthritis. PAST SURGICAL HISTORY: Right hip arthroplasty. SOCIAL HISTORY: Positive for smoking, no history of drug abuse or alcohol abuse. MEDICATIONS: At home prior to admission include melatonin, multivitamins, Klonopin, Biaxin, Lasix. ALLERGIES: Include SULFA which causes rash and hives and TETRACYCLINE. REVIEW OF SYSTEMS: As per HPI. Other systems negative. PHYSICAL EXAMINATION: Patient is comfortable, awake, alert, oriented x3, not in any acute distress. He is mildly short of breath. On examination, blood pressure was 120/72, heart rate 92 per minute, he is afebrile. Examination of the heart S1, S2. Examination of the lungs, decreased breath sounds at bases. Abdomen is soft, nontender, morbidly obese. Examination of the lower extremities shows edema 3+ bilaterally. SPRING LAYER exam grossly intact. LABS: Show sodium of 131, potassium 4.0, chloride 92, CO2 is 26, BUN 97, serum creatinine 2.9. Lactic acid 3.0. ALT was 120, AST 204. Troponin 0.026. BNP was 818. Hemoglobin 13.8 g/dL. Patient had echocardiogram done which showed ejection fraction 40%-45%. He had large global pericardial effusion as well. ASSESSMENT: 1. Acute kidney injury, mostly cardiorenal. Patient is being diuresed. He did get a dose of IV Lasix early this morning. I will maintain him on regular dose of Lasix. There are no nephrotoxic agents on board. Blood pressure is not significantly low, although slightly on the lower side. A UA will be ordered along with ultrasound of the kidneys as well. 2. Lactic acidosis, currently improved. 3. Large pericardial effusion, etiology unclear. Serologies will be sent out for autoimmune diseases as well. 4. Volume overload, start IV lasix PLAN: Maintain regular dose of Lasix. Check urinalysis and if there is significant proteinuria or hematuria, I will send out serologies as well. Follow up on the pulmonary workup as patient was noted to have small mediastinal lymphadenopathy on a CAT scan done in May of 2019. Thank you for this consultation. Will continue to follow the patient with you during his hospitalization. MMODL / IJN: [id number] / REBEL
[2020-05-10 16:26] LABS: Appearance,Urine Clear (Clear); Bilirubin,Urine Negative (Negative); Blood,Urine Negative (Negative); Color,Urine Light Yellow; Glucose,Urine (UA) Negative (Negative); Ketones,Urine Negative (Negative); Leukocyte Esterase,Urine Negative (Negative); Nitrite,Urine Negative (Negative); Protein,Urine Negative (Negative); Specific Gravity,Urine 1.008 (1.001-1.035); Urobilinogen,Urine <2.0 mg/dL (<2.0)
[2020-05-10 17:44] LABS: Appearance,BF Bloody; Color,BF Red
[2020-05-10 19:04] LABS: Anti-DNA, DS unit <1.0 IU/mL; DNA Double-Stranded NEGATIVE (NEGATIVE)
[2020-05-10 21:05] LABS: Mononuclear WBC,Body Fluid 31 %; Polynuclear WBC,Body Fluid 69 %
[2020-05-10] MEDS: clonazePAM 0.5 MG TAB PO SCH (21:55)
[2020-05-11 03:26] LABS: Glucose, Body Fluid <4 mg/dL
[2020-05-11 07:52] LABS: Basophils % (A) 0 %; Eosinophils % (A) 0 %; HCT 38.9 % (39.0-53.0); HGB 13.1 gm/dL (13.0-17.5); Lymphocytes # (A) 0.3 k/uL (1.0-4.8); Lymphocytes % (A) 1 %; MCH 32.8 pg (25.0-35.0); MCHC 33.6 g/dL (31.0-37.0); MCV 97.4 fL (80.0-100.0); Monocytes # (A) 1.5 k/uL (0-1.0); Monocytes % (A) 6 %; Neutrophils % (A) 92 %; Platelet Count 191 k/uL (150-450); RBC 3.99 m/uL (4.30-5.90); RDW 13.8 % (11.5-15.5); WBC 24.1 k/uL (3.8-10.6)
[2020-05-11 08:03] LABS: Albumin 2.9 g/dL (3.5-5.0); Calcium 8.4 mg/dL (8.4-10.2); Magnesium 2.8 mg/dL (1.6-2.3); Phosphorus 4.7 mg/dL (2.5-4.5); Potassium 3.2 mmol/L (3.5-5.1); Total Bilirubin 0.7 mg/dL (0.2-1.3); Total Protein 5.2 g/dL (6.3-8.2)
[2020-05-11] MEDS: FORMOTEROL FUMARATE 20 MCG/2 ML NEBU INHALATION SCH ×2 (08:24→19:27)
[2020-05-11] MEDS: IPRATROPIUM-ALBUTEROL 3 ML NEB INHALATION SCH ×4 (08:24→19:27)
--- NOTE | 2020-05-11 08:49 | P.OP ---
Date of Procedure: 05/10/20 Preoperative Diagnosis: Large pericardial effusion with early tamponnade Postoperative Diagnosis: 850cc of bloody pericardial effusion Procedure(s) Performed: Emergent Percutaneous Pericardial drain insertion under echo guidance Implants: Triple lumen catheter Anesthesia: local Surgeon: Christine Jimenez Estimated Blood Loss (ml): 0 Pathology: other (pericardial fluid sent for pathology and biochemical studies) Condition: stable Disposition: floor Indications for Procedure: Symptomatic large pericardial effusion Operative Findings: 850cc hemorrhagic pericardial fluid Description of Procedure: Bedside emergent procedure. Echo guidance . Proper consent obtained. Chest prepped with Chloraprep. Local anesthesia ensured using 5cc of Xylocaine 1%. Site selected is 4th ICS Mid-clavicular line as Liver was enlarged and on the way for a sub-xyphoid approach. 22G finding needle yielded a direct pass and dark bloody fluid. Using Seldinger technique, a wire was inserted into the pericardial cavity and position confirmed by Echo. Subsequently, a triple lumen catheter was advanced over a wire after dilatation and placed in the pericardial cavity. We proceeded atv aspirating a total of 850cc of dark hemorrhagic fluid with 2D echo showing trivial residual effusion. Patient felt better immediately and tolerate dprocedure well. Fluid sent for analysis and cytology as there is a strong suspicion of metastatic lung cancer in view of a hx of lung nodules in a heavy smoker.
--- NOTE | 2020-05-11 08:58 | P.PN ---
Subjective Progress Note Date: 05/11/20 Principal diagnosis: Large pericardial effusion with early tamponade, acute kidney injury. History of current tobacco dependence, stop smoking 2 weeks ago, COPD, lung nodules foll owed by Dr. Nicole, prostate and skin cancer with resection, family history of cancer POD #1 emergent percutaneous pericardial drain insertion under echo guidance Patient's currently sitting up in bed in no acute distress. Appears somewhat short of breath, however patient states he feels significantly better since pericardial drainage yesterday. Does complain of some left-sided chest pain and heartburn. Continues to have loose cough. Pericardial drain was placed yesterday with 850 mL bloody drainage, drained again last night for 50 mL drainage. This morning's drainage was only a few drops from all 3 ports. Fluid has been sent for cytology, awaiting results. at bedside, care was discussed with the patient and his . All questions answered. Objective - Vital Signs Vital signs: Vital Signs Temp 97.8 F 05/11/20 03:56 Pulse 80 05/11/20 08:36 Resp 22 05/11/20 03:56 BP 121/69 05/11/20 03:56 Pulse Ox 93 L 05/11/20 03:56 Intake & Output 05/10/20 05/11/20 05/11/20 18:59 06:59 18:59 Intake Total 840 120 Output Total 2125 1625 Balance -1285 -1505 Weight 97.5 kg Intake: Oral 840 120 Output: Urine 2125 1625 Other: Voiding Method Urinal Urinal Diaper # Voids 1 - Constitutional General appearance: Present: cooperative, no acute distress - Respiratory Details: Lungs sounds diminished bilaterally. Respirations even, slightly labored. Currently on 3 L nasal cannula with oxygen saturation 93%. - Cardiovascular Details: S1, S2 present. Regular rate and rhythm, sinus rhythm on telemetry. Palpable peripheral pulses bilaterally. Bilateral lower extremity 2+ edema present. Pericardial drain present, capped - Gastrointestinal Gastrointestinal Comment(s): Abdomen soft, nontender, nondistended. Active bowel sounds present 4 quadrants. Tolerating diet. - Genitourinary Genitourinary Comment(s): Continues to void clear, yellow urine - Integumentary Integumentary Comment(s): Skin is warm and dry with evidence of good perfusion - Neurologic Neurologic: Present: CNII-XII intact - Musculoskeletal Musculoskeletal: Present: strength equal bilaterally - Psychiatric Psychiatric: Present: A&O x's 3, appropriate affect, intact judgment & insight - Allied health notes Allied health notes reviewed: nursing - Labs CBC & Chem 7: 05/11/20 07:05 05/11/20 07:05 Labs: Abnormal Lab Results - Last 24 Hours (Table) 05/10/20 05/10/20 05/11/20 Range/Units 03:31 10:33 07:05 WBC 24.1 H (3.8-10.6) k/uL RBC 3.99 L (4.30-5.90) m/uL Hct 38.9 L (39.0-53.0) % Neutrophils # 22.0 H (1.3-7.7) k/uL Lymphocytes # 0.3 L (1.0-4.8) k/uL Monocytes # 1.5 H (0-1.0) k/uL Sodium (137-145) mmol/L Potassium (3.5-5.1) mmol/L Carbon Dioxide (22-30) mmol/L BUN (9-20) mg/dL Creatinine (0.66-1.25) mg/dL Glucose (74-99) mg/dL Phosphorus 6.8 H (2.5-4.5) mg/dL Magnesium (1.6-2.3) mg/dL AST (17-59) U/L ALT (4-49) U/L Troponin I 0.083 H* (0.000-0.034) ng/mL Total Protein (6.3-8.2) g/dL Albumin (3.5-5.0) g/dL 05/11/20 Range/Units 07:05 WBC (3.8-10.6) k/uL RBC (4.30-5.90) m/uL Hct (39.0-53.0) % Neutrophils # (1.3-7.7) k/uL Lymphocytes # (1.0-4.8) k/uL Monocytes # (0-1.0) k/uL Sodium 135 L (137-145) mmol/L Potassium 3.2 L (3.5-5.1) mmol/L Carbon Dioxide 31 H (22-30) mmol/L BUN 98 H (9-20) mg/dL Creatinine 2.35 H (0.66-1.25) mg/dL Glucose 146 H (74-99) mg/dL Phosphorus 4.7 H (2.5-4.5) mg/dL Magnesium 2.8 H (1.6-2.3) mg/dL AST 78 H (17-59) U/L ALT 184 H (4-49) U/L Troponin I (0.000-0.034) ng/mL Total Protein 5.2 L (6.3-8.2) g/dL Albumin 2.9 L (3.5-5.0) g/dL Microbiology - Last 24 Hours (Table) 05/09/20 22:01 Blood Culture - Preliminary Blood No Growth after 24 hours Assessment and Plan Assessment: 1. Large pericardial effusion with early tamponade, status post emergent percutaneous pericardial drain insertion under echo guidance, cytology pending 2. Acute kidney injury 3. Current tobacco dependence, stop smoking 2 weeks ago 4. COPD 5. Lung nodules followed by Dr. Nicole 6. History of prostate and skin cancer with resection 7. Family history of cancer Plan: 1. Attempted pericardial drainage in this morning with drops from each port. Will attempt to drain pericardial fluid again this afternoon and tomorrow morning. If no drainage present will order echocardiogram 2. Wean O2 as tolerated 3. Increase activity as tolerated 4. Pain control current medication regimen 5. GI/DVT prophylaxis 6. Management of other medical comorbidities per primary care, cardiology, pulmonology 7. More recommendations to follow Time with Patient: Greater than 30
[2020-05-11] MEDS: FUROSEMIDE 10 MG/ML 4 ML VIAL IV SCH (09:10)
[2020-05-11 09:13] LABS: Glucose,Whole Blood 143 mg/dL (75-99)
[2020-05-11] MEDS: traMADol 50 MG TAB PO PRN ×3 (09:34→21:14)
[2020-05-11] MEDS: PANTOPRAZOLE 40 MG/10 ML VIAL IVP SCH (09:35)
[2020-05-11] MEDS: DOCUSATE 100 MG CAP PO SCH ×2 (09:35→21:14)
--- NOTE | 2020-05-11 10:11 | XR ---
EXAMINATION TYPE: XR chest 1V portable DATE OF EXAM: 05/11/2020 Comparison: 05/09/2020 Clinical History: 74 year-old male shortness of breath, dyspnea Findings: Heart borderline enlarged. Interstitial and vascular prominence. Small bilateral pleural effusions wi th bibasilar opacities persist. Increased from prior. Impression: Increased small pleural effusions now with prominent bibasilar atelectasis and/or consolidation. Sandra elate for possible CHF as an etiology.
--- NOTE | 2020-05-11 11:01 | PN ---
PROGRESS NOTE Mr. Lewis is a 74-year-old male who presented with symptoms of significant progressive dyspnea. He underwent transthoracic echocardiogram, revealed a severe large pericardial effusion, underwent pericardiocentesis yesterday by the Dr. Jimenez and was found to have large bloody effusion. He had removal of 850 mL. He is feeling much better today. His breathing is better. He has some discomfort with deep breathing, but no chest pain. No dizziness. No palpitation. He continues to be in sinus mechanism. There was no significant drainage today. He continues to be on Lasix 40 mg IV q.8 hours. PHYSICAL EXAMINATION: Blood pressure 120/60 with a heart rate in the 80s. Lungs with mild decrease in breath sounds at the bases, no wheezes. HEART: Regular rate and rhythm, S1, S2. No S3 with a systolic murmur, no diastolic murmur. ABDOMEN: Soft, nontender. EXTREMITIES: +1 edema. LAB DATA: Revealed BUN and creatinine of 98 and 2.35 that improved compared to yesterday. His potassium is 3.2, hemoglobin of 13.1, white blood cell of 24.1. IMPRESSION: 1. Large pericardial effusion, suspicious for malignancy. 2. Acute renal failure. 3. Progressive dyspnea related to the pericardial effusion. 4. Prior history of lung nodules. 5. Prior history of smoking. 6. History of chronic obstructive pulmonary disease. RECOMMENDATION: From the cardiac standpoint, I will await the results of his fluid analysis. I will obtain a repeat echocardiogram tomorrow and if there is no evidence of significant effusion, the catheter may be able to be pulled. I will cut down the dose of his diuretic. Continue rest of his medical regimen and depending on his progress, further recommendation will be made. MMODL / IJN: [id number] /
--- NOTE | 2020-05-11 11:23 | P.PN ---
Subjective Progress Note Date: 05/11/20 Principal diagnosis: Shortness of breath, large pericardial effusion with early tamponade, acute kidney injury Patient was seen and reevaluated today on 05/11/2020 on selective care unit, patient is status post urgent percutaneous pericardial drain insertion under echocardiogram guidance by cardiothoracic surgery, with the removal of over 850 mL of bloody drainage immediately, and additional 50 ML of bloody drainage last night. His breathing has improved although he feels like he can't take a full breath related to sharp pain in the chest when he takes a deep breath. Also he states he may have waited too long to ask for pain medication. Otherwise appears to be in no acute distress. This morning he is on 2 L of oxygen with pulse ox of 92%, blood pressure is 120/65, no tachycardia, heart rate is 86 BPM, mild tachypnea, but afebrile. Pericardial fluid cytology is pending. Patient remains on IV Lasix at 40 mg every 12 hours, he is in -2.7 L net fluid balance over the last 24 hours, repeat echocardiogram is pending for today. Advise have been discontinued. Remains on breathing treatments. Autoimmune serologies have been sent. Troponin was 0.026, 0.028, and 0.083. Today's labs have been reviewed showing white blood cell count of 24.1, hemoglobin of 13.1, sodium is 135, potassium is 3.2, chloride is 98, CO2 31, B1 is 98, creatinine is 2.35 Objective - Vital Signs Vital signs: Vital Signs Temp 98.6 F 05/11/20 08:55 Pulse 86 05/11/20 08:55 Resp 22 05/11/20 08:55 BP 120/65 05/11/20 08:55 Pulse Ox 92 L 05/11/20 08:55 Intake & Output 05/10/20 05/11/20 05/11/20 18:59 06:59 18:59 Intake Total 840 120 10 Output Total 2125 1625 Balance -1285 -1505 10 Weight 97.5 kg Intake: IV 10 Invasive Line 1 10 Oral 840 120 Output: Urine 2125 1625 Other: Voiding Method Urinal Urinal Diaper # Voids 1 - Exam GENERAL EXAM: Alert, very pleasant, 74-year-old white male, on 5 L of oxygen with a pulse ox of 92%, comfortable in no apparent distress. HEAD: Normocephalic/atraumatic. EYES: Normal reaction of pupils, equal size. Conjunctiva pink, sclera white. NOSE: Clear with pink turbinates. THROAT: No erythema or exudates. NECK: No masses, no JVD, no thyroid enlargement, no adenopathy. CHEST: No chest wall deformity. Symmetrical expansion. Anterior left chest triple-lumen catheter in the right lower anterior chest region in place, covered with a surgical dressing LUNGS: Equal air entry with no crackles, wheeze, rhonchi or dullness. CVS: Regular rate and rhythm, normal S1 and S2, no gallops, no murmurs, no rubs ABDOMEN: Soft, nontender. No hepatosplenomegaly, normal bowel sounds, no guarding or rigidity. EXTREMITIES: No clubbing, no edema, no cyanosis, 2+ pulses and upper and lower extremities. MUSCULOSKELETAL: Muscle strength and tone normal. SPINE: No scoliosis or deformity SKIN: No rashes CENTRAL NERVOUS SYSTEM: Alert and oriented -3. No focal deficits, tone is normal in all 4 extremities. PSYCHIATRIC: Alert and oriented -3. Appropriate affect. Intact judgment and insight. - Labs CBC & Chem 7: 05/11/20 07:05 05/11/20 07:05 Labs: Abnormal Lab Results - Last 24 Hours (Table) 05/10/20 05/10/20 05/11/20 Range/Units 03:31 10:33 07:05 WBC 24.1 H (3.8-10.6) k/uL RBC 3.99 L (4.30-5.90) m/uL Hct 38.9 L (39.0-53.0) % Neutrophils # 22.0 H (1.3-7.7) k/uL Lymphocytes # 0.3 L (1.0-4.8) k/uL Monocytes # 1.5 H (0-1.0) k/uL Sodium (137-145) mmol/L Potassium (3.5-5.1) mmol/L Carbon Dioxide (22-30) mmol/L BUN (9-20) mg/dL Creatinine (0.66-1.25) mg/dL Glucose (74-99) mg/dL POC Glucose (mg/dL) (75-99) mg/dL Phosphorus 6.8 H (2.5-4.5) mg/dL Magnesium (1.6-2.3) mg/dL AST (17-59) U/L ALT (4-49) U/L Troponin I 0.083 H* (0.000-0.034) ng/mL Total Protein (6.3-8.2) g/dL Albumin (3.5-5.0) g/dL 05/11/20 05/11/20 Range/Units 07:05 09:12 WBC (3.8-10.6) k/uL RBC (4.30-5.90) m/uL Hct (39.0-53.0) % Neutrophils # (1.3-7.7) k/uL Lymphocytes # (1.0-4.8) k/uL Monocytes # (0-1.0) k/uL Sodium 135 L (137-145) mmol/L Potassium 3.2 L (3.5-5.1) mmol/L Carbon Dioxide 31 H (22-30) mmol/L BUN 98 H (9-20) mg/dL Creatinine 2.35 H (0.66-1.25) mg/dL Glucose 146 H (74-99) mg/dL POC Glucose (mg/dL) 143 H (75-99) mg/dL Phosphorus 4.7 H (2.5-4.5) mg/dL Magnesium 2.8 H (1.6-2.3) mg/dL AST 78 H (17-59) U/L ALT 184 H (4-49) U/L Troponin I (0.000-0.034) ng/mL Total Protein 5.2 L (6.3-8.2) g/dL Albumin 2.9 L (3.5-5.0) g/dL Microbiology - Last 24 Hours (Table) 05/09/20 22:01 Blood Culture - Preliminary Blood No Growth after 24 hours Assessment and Plan Plan: Assessment: #1. Large pericardial effusion with early tamponade, status post emergent percutaneous pericardial drain insertion under echo guidance, postop day 1, with immediate removal of 850 ML of bloody pericardial fluid which was sent for analysis, cultures and cytology. There was an additional 50 ML removed from the catheter yesterday evening on 05/10/2020 #2. Severe dyspnea acute hypoxic respiratory failure related to the above #3. Acute kidney injury, slightly improved on today's labs #4. Mild plasma lactic acidosis, improved #5. History of COPD, with baseline FEV1 of 34% of predicted #6. Long history of smoking, currently in remission for last 3 weeks, carries [id number] smoking history #7. Pulmonary nodules, abdomen followed by Dr. Nicole, and are stable #8. Significant lower extremity edema with no evidence of DVT #9. History of prostate cancer #10. Restless leg syndrome #11. Chronic deafness Plan: Continue IV diuretics, today's chest x-ray has been reviewed showing small pleural effusions with bibasilar atelectasis, patient is maintaining negative fluid balance, shortness of breath has improved, although still having some thuy p discomfort with deep breathing and coughing in chest, maintain pain control, deep breathing and coughing, likely results of the pericardial fluid cytology, and cultures. Renal profile slightly improved on today's labs, nephrology is following. Vital signs are stable, no fever or chills. Repeat echocardiogram is pending for today, we'll continue to closely follow with CT surgery I performed a history & physical examination of the patient and discussed their management with my nurse practitioner, Kandi Saleem. I reviewed the nurse practitioner's note and agree with the documented findings and plan of care. Lung sounds are positive for diminished breath sounds. The findings and the i mpression was discussed with the patient. I attest to the documentation by the nurse practitioner. Time with Patient: Less than 30
[2020-05-11 11:40] LABS: Glucose,Whole Blood 130 mg/dL (75-99)
[2020-05-11 12:13] LABS: Complement C3 87.4 mg/dL (80.0-207.0)
[2020-05-11] MEDS ORDERED: Potassium Replacement Protocol 1 EACH MISC MISCELLANE PRN (12:13)
[2020-05-11] MEDS ORDERED: POTASSIUM CHLORIDE ER 20 MEQ TAB.ER PO STA (12:25)
[2020-05-11] MEDS ORDERED: traMADol 50 MG TAB PO STA (12:25)
[2020-05-11] MEDS: SENNOSIDES-DOCUSATE SODIUM 1 EACH TAB PO SCH ×2 (12:44→21:14)
[2020-05-11] MEDS: FUROSEMIDE 100 MG in SODIUM CHLORIDE 0.9% 90 ML IV SCH (12:50)
[2020-05-11 13:27] LABS: C-ANCA <1:20 Titer (<1:20)
--- NOTE | 2020-05-11 14:27 | PN ---
PROGRESS NOTE Patient is seen for followup for acute kidney injury. He was admitted to the hospital with shortness of breath and was found to have a large pericardial effusion. Patient is status post pericardiocentesis. He is also maintained on IV Lasix. He is significantly volume overloaded and is complaining of shortness of breath today. Serum creatinine has improved slightly to 2.35 from 2.9 yesterday. Previous creatinine 1.23 on 04/27/2020. Blood pressure is not low. PHYSICAL EXAMINATION: Today blood pressure was 120/65, heart rate 86 per minute, he is afebrile. Examination of the heart S1, S2. Examination of the lungs, decreased breath sounds at bases. Abdomen is soft, nontender. Examination of the lower extremities shows edema 2+ bilaterally. The patient has decreased breath sounds at the bases as well. SHAFT TENDER exam grossly intact. LABS: Show sodium 135, potassium 3.2, chloride 98, BUN 98, serum creatinine 2.35, hemoglobin 13.1 g/dL. UA was completely negative. ASSESSMENT: 1. Acute kidney injury, mostly cardiorenal, currently improved. Patient is maintained on small dose of IV Lasix. I will switch him to a Lasix drip. 2. Hypokalemia, secondary to diuretics, will replace. 3. Large pericardial effusion status post pericardiocentesis. Awaiting pathology report. 4. Lactic acidosis, currently improved. PLAN: Switch to Lasix drip and I doubt any underlying autoimmune diseases as UA is completely benign with no evidence of hematuria or proteinuria. Will follow up on the results of the pathology. MMODL / IJN: [id number] /
--- NOTE | 2020-05-11 14:57 | P.PN ---
Subjective Progress Note Date: 05/11/20 05/09/2020 74-year-old male patient presented emergency room ambulatory chief complaint of shortness of breath. In ER chest x-ray showed small pleural effusions are essentially new compared to all exam no gross heart failure. He has had a long-standing history of COPD, and noted history of smoking. He quit approximately 3 weeks ago at the onset of current symptoms. He was seen in emergency room for similar complaint earlier in the month and he has been seen in the office twice once for ER follow-up and the other for recheck. From the office he was started on 80 mg of Lasix as well as clarithromycin. With taking medications he stated there was no improvement in his symptoms and his fatigue worsened. He was also ordered a rescue inhaler but had minimal improvement with its use. He denied chest pain, unilateral numbness or weakness, orthopnea. Continue to have bilateral lower extremity peripheral edema. He has no history of hypertension, DVT or PE, denies history of heart failure, does not utilized home O2, denies fever or chills. He he denied cough and arrival in ER. Past medical history of cancer, COPD, heart appearing as related to being in the , prostate disorder, every day smoker up until current sickness. Is also noted to have a right hip. Echocardiogram this morning showed ejection fraction 40-45% with very mild left ventricular hypokinesis. Is also noted to have large global pericardial effusion without tamponade. Appears cardiology was on hand at time of echo and consulted cardiothoracic for evaluation. Dr. Jimenez saw patient in room and performed a percutaneous pericardial drainage with echo guidance in which he 850 ml of bloody pericardial fluid was drained and sent for cytology, LDH, protein, glucose. Venous Doppler duplex lower summary bilaterally was completed today impression showed early to moderate diffuse subcutaneous edema greatest towards the periphery bilaterally without acute DVT in either extremity. Current labs WBC of 19.3, hemoglobin 13.8, hematocrit 42.1, platelet count 214, neutrophils 16.1, monocytes 1.4, PT of 12.8, INR 1.3, d-dimer 1.95. Chemistry revealed a sodium 131, potassium 4.0, chloride 92, bun 97, creatinine of 2.99, lactic acid initially was 3.0 and resuscitated down to 1.9. AST 120, Whitney T O'Maury for, initial troponin 0.0-6, which elevated later to 0.083. Most recent chart of vitals afebrile 98.2, pulse rate of 92 normal sinus rhythm, respiratory rate of 22, blood pressure 120/72, oxygen saturation 96% on 2 L nasal cannula. 05/11/2020 worsening shortness of breath, desatted into the 80s, O2 increased from 3 L to 5 L this morning, maintaining O2 sats of 91-92% currently. Nonproductive cough. Pericardial cytology pending. Last night drained approximately 50 MLS and trace drainage this morning .Mild confusion with desaturation. Worsening edema. Chest x-ray reporting increased small pleural effusions with prominent by bibasilar atelectasis/consolidation .Converted from Lasix IV push to Lasix drip. Afebrile, WBC up to 24. Complains of left chest pericardial drain site pain. Renal function is slowly improving, down to 2.35. Potassium 3.2. Objective - Vital Signs Vital signs: Vital Signs Temp 98.3 F 05/11/20 12:44 Pulse 85 05/11/20 12:45 Resp 24 05/11/20 12:45 BP 119/66 05/11/20 12:44 Pulse Ox 91 L 05/11/20 12:44 Intake & Output 05/10/20 05/11/20 05/11/20 18:59 06:59 18:59 Intake Total 840 120 330 Output Total 2125 1625 300 Balance -1285 -1505 30 Weight 97.5 kg Intake: IV 30 Invasive Line 1 20 Invasive Line 2 10 Oral 840 120 300 Output: Urine 2125 1625 300 Other: Voiding Method Urinal Urinal Incontinent Diaper # Voids 1 - Exam GENERAL: Sitting up in chair, no acute distress, mild increased respiratory effort HEAD: Atraumatic, normocephalic. EYES: Pupils equal round and reactive to light, extraocular movements intact, sclera anicteric, conjunctiva are normal. ENT:nares patent, oropharynx clear without exudates. Oral mucosa moist. NECK: Normal range of motion, supple without lymphadenopathy or JVD, no thyromegaly LUNGS: Breath sounds diminished throughout. Loose cough, scattered rhonchi with expiratory wheezing HEART: Regular rate and rhythm without murmurs, rubs or gallops.S1S2 Normal. Pericardial drain present. ABDOMEN: Soft, nontender, normoactive bowel sounds. No guarding, no rebound. No masses appreciated. EXTREMITIES: Normal range of motion, increased pitting edema bilateral lower extremities, No clubbing or cyanosis. NEUROLOGICAL: Cranial nerves II through XII grossly intact. Normal speech, . PSYCH: Normal mood, normal affect. SKIN: Warm, Dry, normal turgor, no rashes. - Labs CBC & Chem 7: 05/11/20 07:05 05/11/20 07:05 Labs: Abnormal Lab Results - Last 24 Hours (Table) 05/11/20 05/11/20 05/11/20 Range/Units 07:05 07:05 09:12 WBC 24.1 H (3.8-10.6) k/uL RBC 3.99 L (4.30-5.90) m/uL Hct 38.9 L (39.0-53.0) % Neutrophils # 22.0 H (1.3-7.7) k/uL Lymphocytes # 0.3 L (1.0-4.8) k/uL Monocytes # 1.5 H (0-1.0) k/uL Sodium 135 L (137-145) mmol/L Potassium 3.2 L (3.5-5.1) mmol/L Carbon Dioxide 31 H (22-30) mmol/L BUN 98 H (9-20) mg/dL Creatinine 2.35 H (0.66-1.25) mg/dL Glucose 146 H (74-99) mg/dL POC Glucose (mg/dL) 143 H (75-99) mg/dL Phosphorus 4.7 H (2.5-4.5) mg/dL Magnesium 2.8 H (1.6-2.3) mg/dL AST 78 H (17-59) U/L ALT 184 H (4-49) U/L Total Protein 5.2 L (6.3-8.2) g/dL Albumin 2.9 L (3.5-5.0) g/dL 05/11/20 Range/Units 11:39 WBC (3.8-10.6) k/uL RBC (4.30-5.90) m/uL Hct (39.0-53.0) % Neutrophils # (1.3-7.7) k/uL Lymphocytes # (1.0-4.8) k/uL Monocytes # (0-1.0) k/uL Sodium (137-145) mmol/L Potassium (3.5-5.1) mmol/L Carbon Dioxide (22-30) mmol/L BUN (9-20) mg/dL Creatinine (0.66-1.25) mg/dL Glucose (74-99) mg/dL POC Glucose (mg/dL) 130 H (75-99) mg/dL Phosphorus (2.5-4.5) mg/dL Magnesium (1.6-2.3) mg/dL AST (17-59) U/L ALT (4-49) U/L Total Protein (6.3-8.2) g/dL Albumin (3.5-5.0) g/dL Microbiology - Last 24 Hours (Table) 05/09/20 22:01 Blood Culture - Preliminary Blood No Growth after 24 hours Assessment and Plan Assessment: (1) large Pericardial effusion with early cardiac tamponade, status post emergent percutaneous pericardial drain insertion, cytology pending Current Visit: Yes Status: Acute Code(s): I31.3 - PERICARDIAL EFFUSION (NON INFLAMMATORY) SNOMED Code(s): 717908502 (2) Acute kidney injury, cardiorenal Current Visit: Yes Status: Acute Code(s): N17.9 - ACUTE KIDNEY FAILURE, UNSPECIFIED SNOMED Code(s): 89322865 (3) COPD exacerbation Current Visit: Yes Status: Acute Code(s): J44.1 - CHRONIC OBSTRUCTIVE PULMONARY DISEASE W (ACUTE) EXACERBATION SNOMED Code(s): 265026831 (4) Pneumonia Current Visit: No Status: Acute Code(s): J18.9 - PNEUMONIA, UNSPECIFIED ORGANISM SNOMED Code(s): 398599225 (5) Shortness of breath Current Visit: Yes Status: Acute Code(s): R06.02 - SHORTNESS OF BREATH SNOMED Code(s): 400977979 (6) Edema, peripheral Current Visit: Yes Status: Acute Code(s): R60.9 - EDEMA, UNSPECIFIED SNOMED Code(s): 405617825 (7) hypokalemia secondary to diuretics (8) lactic acidosis, improved (9) acute metabolic encephalopathy secondary to hypoxia (10) acute hypoxic respiratory failure secondary to #1 (11) nicotine dependence, quit smoking 2 weeks ago (12) Lung nodules, being followed outpatient with Dr. Nicole (13) history of prostate cancer, skin cancer (14) chronic deafness Plan: Continue on current medication regime ,monitoring and symptomatic treatment. Pain management, Ultram added to med regimen. Diuretics as per nephrology. Potassium supplements ordered for potassium of 3.2 with follow-up level later this afternoon . Colace and Senokot S added for complaints of constipation . Increase ambulation as tolerated .Aggressive pulmonary toileting with incentive spirometer ordered .wean O2 as per parameters per pulmonary.Close monitoring of renal function and electrolyte with repeat labs ordered for a.m. Pericardial cytology pending. F/U echo pending. Follow closely with multiple consults including cardiothoracic surgery. Prognosis guarded given multiple complex medical issues. The impression and plan of care has been dictated as directed. : I performed a history and examination of this patient, discussed the same with the dictator. I agree with the dictator's note ,documented as a scribe. Any additional findings or plans will be noted.
[2020-05-11 15:02] LABS: Nucleated Cells, Body Fluid 1270000 /uL
[2020-05-11] MEDS ORDERED: FUROSEMIDE 10 MG/ML 4 ML VIAL IV SCH (21:00)
[2020-05-11] MEDS: clonazePAM 0.5 MG TAB PO SCH (21:14)
[2020-05-11] MEDS ORDERED: DILTIAZEM 125 MG in SODIUM CHLORIDE 0.9% 100 ML IV SCH (23:45)
[2020-05-11] MEDS ORDERED: DILTIAZEM DRIP BOLUS FROM BAG 1 MG SOLN IV ONE (23:45)
[2020-05-12] MEDS: SODIUM CHLORIDE 0.9% 1,000 ML IV SCH (00:40)
[2020-05-12] MEDS: DOCUSATE 100 MG CAP PO SCH ×2 (08:10→20:11)
[2020-05-12] MEDS: traMADol 50 MG TAB PO PRN ×2 (08:10→14:59)
[2020-05-12] MEDS: SENNOSIDES-DOCUSATE SODIUM 1 EACH TAB PO SCH ×2 (08:10→20:11)
[2020-05-12] MEDS: PANTOPRAZOLE 40 MG/10 ML VIAL IVP SCH (08:11)
[2020-05-12 08:22] LABS: HCT 38.8 % (39.0-53.0); MCH 33.6 pg (25.0-35.0); MCHC 33.5 g/dL (31.0-37.0); MCV 100.4 fL (80.0-100.0); Macrocytosis Slight; Mean Platelet Volume 8.8; Platelet Count 168 k/uL (150-450); RBC 3.86 m/uL (4.30-5.90); RDW 14.1 % (11.5-15.5); WBC 25.4 k/uL (3.8-10.6)
[2020-05-12] MEDS: IPRATROPIUM-ALBUTEROL 3 ML NEB INHALATION SCH ×4 (08:30→19:00)
[2020-05-12] MEDS: FORMOTEROL FUMARATE 20 MCG/2 ML NEBU INHALATION SCH ×2 (08:30→19:00)
[2020-05-12 08:41] LABS: Calcium 7.7 mg/dL (8.4-10.2); Potassium 3.4 mmol/L (3.5-5.1)
[2020-05-12] MEDS: FUROSEMIDE 100 MG in SODIUM CHLORIDE 0.9% 90 ML IV SCH ×2 (08:41→20:12)
[2020-05-12] MEDS ORDERED: POTASSIUM CHLORIDE ER 20 MEQ TAB.ER PO STA (08:47)
[2020-05-12] MEDS: METOPROLOL TARTRATE 25 MG TAB PO SCH ×2 (10:32→20:12)
[2020-05-12] MEDS: methylPREDNISolone SOD SUCCI 40 MG/ML 1 ML VIAL IV SCH ×3 (10:33→22:14)
--- NOTE | 2020-05-12 10:45 | PN ---
PROGRESS NOTE Mr. Lewis is a 74-year-old male with no prior cardiac history who presented with symptoms of severe progressive dyspnea, was found to have large pericardial effusion, underwent pericardiocentesis, was found to have a bloody effusion. He is feeling better today. His breathing is better. He denies any chest pain. He denies any dizziness, palpitation. He denies any nausea. During the night he had an episode of tachycardia, is probably atrial flutter with 2:1 conduction. He is back in sinus mechanism at this time. He continues to have some dyspnea although much better. He has been maintained on IV Lasix drip with good urine output. Improvement in his renal function. He has a known history of COPD that stopped only a few weeks ago with pulmonary nodules that has been stable. He continues to be at this point on the IV Lasix drip at 5 mg/hour. PHYSICAL EXAMINATION: Blood pressure 129/60 with a heart rate in the 80s. LUNGS: With decreased air exchange to be bases, no wheezes. HEART: Regular rate and rhythm, S1, S2. No S3. No rub. NECK: With increased venous pressure. ABDOMEN: Soft, nontender. EXTREMITIES: +1 to 2 edema. LAB DATA: Revealed a white blood cell of 25.4, BUN and creatinine of 81 and 1.87, potassium 3.4. His calcium is 7.7. He is 2790 mL over the last 24 hours and his weight is down. IMPRESSION: 1. Large pericardial effusion, bloody, awaiting pathology, concerning for malignancy. 2. Episode of atrial flutter, could be irritation from the tube. 3. Acute renal failure, improving. 4. Progressive dyspnea, improving. 5. History of lung nodule. 6. Prior history of chronic obstructive lung disease and smoking. RECOMMENDATION: Will review the results of his echocardiogram. If there is no effusion, then the drain may be pulled today. I will start him on Lopressor 25 mg twice a day. Will follow his renal function closely and depending on that, further recommendation will be made. MMODL / IJN: [id number] /
--- NOTE | 2020-05-12 11:01 | ECHOF ---
Referral Reason:pe MEASUREMENTS -------- HEIGHT: 180.3 cm WEIGHT: 90.3 kg BP: FINDINGS -------- Sinus rhythm. Limited Study for pericardial effusion TDS due to Bandages. There is a trivial pericardial effusion present. CONCLUSIONS -------- 1. Sinus rhythm. 2. Limited Study for pericardial effusion 3. TDS due to Bandages. 4. There is a trivial pericardial effusion present. SHIPPING TEAM LEADER: Marissa Brown RDCS
--- NOTE | 2020-05-12 11:14 | P.PN ---
Subjective Progress Note Date: 05/12/20 Principal diagnosis: Large pericardial effusion with early tamponade The patient is seen today 05/12/2020 in follow-up on the selective care unit. He is currently resting fairly comfortably in bed. Awake and alert in no acute distress. He does have a worsening congested cough. Some shortness of breath. Currently on 5 L high flow nasal cannula to maintain O2 saturations in the 90s. He is afebrile. Hemodynamically stable. Blood cultures reveal no growth. Paracardial fluid cytology pending. Fluid analysis revealed significant bloody fluid with high WBCs. Exudative in nature with high-protein high LDH. White count 25.4. Hemoglobin 13.0. Sodium 135. Potassium 3.4. Creatinine 1.87. MAXWELL, p-ANCA, c-ANCA, DNA antibodies all negative. Infectious diseases been c onsulted. Follow up echocardiogram reveals trivial pericardial effusion. Plan is for possible catheter removal today. Minimal output. Objective - Vital Signs Vital signs: Vital Signs Temp 98.5 F 05/12/20 07:54 Pulse 89 05/12/20 08:55 Resp 20 05/12/20 07:58 BP 129/61 05/12/20 07:54 Pulse Ox 91 L 05/12/20 07:54 Intake & Output 05/11/20 05/12/20 05/12/20 18:59 06:59 18:59 Intake Total 710 655 485.25 Output Total 825 1250 Balance -115 -595 485.25 Weight 90.6 kg Intake: IV 50 Invasive Line 1 30 Invasive Line 2 20 Intake, IV Titration 175 185.25 Amount Diltiazem 125 mg In 60 86 Sodium Chloride 0.9% 100 ml @ 10 MG/HR 10 mls/hr IV .[id number] RUPERTO Rx#: [id number] Furosemide 100 mg In 55 99.25 Sodium Chloride 0.9% 90 ml @ 5 MG/HR 5 mls/hr IV .Q20H RUPERTO Rx#:[id number] Sodium Chloride 0.9% 1, 60 000 ml @ 20 mls/hr IV . Q24H RUPERTO Rx#:[id number] Oral 660 480 300 Output: Urine 825 1250 Other: Voiding Method Incontinent Diaper Diaper - Exam GENERAL EXAM: Alert, very pleasant, 74-year-old gentleman, on 5 L of oxygen with a pulse ox of 91%, comfortable in no apparent distress. HEAD: Normocephalic/atraumatic. EYES: Normal reaction of pupils, equal size. Conjunctiva pink, sclera white. NOSE: Clear with pink turbinates. THROAT: No erythema or exudates. NECK: No masses, no JVD, no thyroid enlargement, no adenopathy. CHEST: No chest wall deformity. Symmetrical expansion. Anterior left chest triple-lumen catheter in the right lower anterior chest region in place, covered with a surgical dressing LUNGS: Equal air entry with few scattered rhonchi, basilar crackles, end expiratory wheeze. CVS: Regular rate and rhythm, normal S1 and S2, no gallops, no murmurs, no rubs ABDOMEN: Soft, nontender. No hepatosplenomegaly, normal bowel sounds, no guarding or rigidity. EXTREMITIES: No clubbing, no edema, no cyanosis, 2+ pulses and upper and lower extremities. MUSCULOSKELETAL: Muscle strength and tone normal. SPINE: No scoliosis or deformity SKIN: No rashes CENTRAL NERVOUS SYSTEM: No focal deficits, tone is normal in all 4 extremities. PSYCHIATRIC: Alert and oriented -3. Appropriate affect. Intact judgment and insight. - Labs CBC & Chem 7: 05/12/20 07:49 05/12/20 07:49 Labs: Abnormal Lab Results - Last 24 Hours (Table) 05/11/20 05/12/20 05/12/20 Range/Units 11:39 07:49 07:49 WBC 25.4 H (3.8-10.6) k/uL RBC 3.86 L (4.30-5.90) m/uL Hct 38.8 L (39.0-53.0) % MCV 100.4 H (80.0-100.0) fL Sodium 135 L (137-145) mmol/L Potassium 3.4 L (3.5-5.1) mmol/L Chloride 97 L (98-107) mmol/L Carbon Dioxide 32 H (22-30) mmol/L BUN 81 H (9-20) mg/dL Creatinine 1.87 H (0.66-1.25) mg/dL Glucose 116 H (74-99) mg/dL POC Glucose (mg/dL) 130 H (75-99) mg/dL Calcium 7.7 L (8.4-10.2) mg/dL Microbiology - Last 24 Hours (Table) 05/09/20 22:01 Blood Culture - Preliminary Blood No Growth after 48 hours Assessment and Plan Assessment: #1. Large pericardial effusion with early tamponade, status post emergent percutaneous pericardial drain insertion under echo guidance, postop day 1, with immediate removal of 850 ML of bloody pericardial fluid which was sent for an alysis, cultures and cytology are pending. Follow-up echocardiogram reveals trivial remaining effusion. #2. Severe dyspnea acute hypoxic respiratory failure related to the above #3. Acute kidney injury, improved, current creatinine 1.87 #4. Mild plasma lactic acidosis, improved #5. History of COPD, with baseline FEV1 of 34% of predicted #6. Long history of smoking, currently in remission for last 3 weeks, carries [id number]-[id number] smoking history #7. Pulmonary nodules, abdomen followed by Dr. Nicole, and are stable #8. Significant lower extremity edema with no evidence of DVT #9. History of prostate cancer #10. Restless leg syndrome #11. Chronic deafness Plan: The patient was seen and evaluated by Dr. Plaza Initiated IV Solu-Medrol, DuoNeb's, Symbicort Titrate down the FiO2 as tolerated ID consult placed Follow-up echo with trivial effusion We'll continue to follow I, the cosigning physician, performed a history & physical examination of the patient. Lungs sounds with basilar crackles, end expiratory wheeze, few scattered rhonchi. Maintaining good O2 saturations in the 90s on 5 L nasal cannula. I discussed the assessment and plan of care with my nurse practitioner, Linh Way. I attest to the above note as dictated by her.
--- NOTE | 2020-05-12 11:44 | P.PN ---
Subjective Progress Note Date: 05/12/20 Principal diagnosis: Large pericardial effusion with early tamponade, acute kidney injury. History of current tobacco dependence, stop smoking 2 weeks ago, COPD, lung nodules foll owed by Dr. Nicole, prostate and skin cancer with resection, family history of cancer POD #2 emergent percutaneous pericardial drain insertion under echo guidance Patient's currently sitting up in bed in no acute distress. States pain is controlled on current medication regimen, so short of breath but better than prior. Continues to have loose cough. Attempted pericardial drainage yesterday afternoon and this morning with no drainage present. Repeat echocardiogram performed, trivial pericardial effusion present. Cytology still pending. Patient had episode of tachycardia last night, was started on IV Cardizem per cardiology, currently normal sinus rhythm. at bedside, care was discussed with the patient and his . All questions answered. Objective - Vital Signs Vital signs: Vital Signs Temp 98.5 F 05/12/20 07:54 Pulse 89 05/12/20 08:55 Resp 20 05/12/20 07:58 BP 129/61 05/12/20 07:54 Pulse Ox 91 L 05/12/20 07:54 Intake & Output 05/11/20 05/12/20 05/12/20 18:59 06:59 18:59 Intake Total 710 655 485.25 Output Total 825 1250 Balance -115 -595 485.25 Weight 90.6 kg Intake: IV 50 Invasive Line 1 30 Invasive Line 2 20 Intake, IV Titration 175 185.25 Amount Diltiazem 125 mg In 60 86 Sodium Chloride 0.9% 100 ml @ 10 MG/HR 10 mls/hr IV .[id number] RUPERTO Rx#: [id number] Furosemide 100 mg In 55 99.25 Sodium Chloride 0.9% 90 ml @ 5 MG/HR 5 mls/hr IV .Q20H RUPERTO Rx#:[id number] Sodium Chloride 0.9% 1, 60 000 ml @ 20 mls/hr IV . Q24H RUPERTO Rx#:[id number] Oral 660 480 300 Output: Urine 825 1250 Other: Voiding Method Incontinent Diaper Diaper - Constitutional General appearance: Present: cooperative, no acute distress - Respiratory Details: Lungs sounds diminished bilaterally with expiratory wheezes present. Respirations even, slightly labored. Currently on 5 L nasal cannula with oxygen saturation 91-93%. - Cardiovascular Details: S1, S2 present. Regular rate and rhythm, sinus rhythm on telemetry. Palpable peripheral pulses bilaterally. Bilateral lower extremity 2+ edema present. Pericardial drain present, capped - Gastrointestinal Gastrointestinal Comment(s): Abdomen soft, nontender, nondistended. Active bowel sounds present 4 fawad drants. Tolerating diet. - Genitourinary Genitourinary Comment(s): Continues to void clear, yellow urine - Integumentary Integumentary Comment(s): Skin is warm and dry with evidence of good perfusion - Neurologic Neurologic: Present: CNII-XII intact - Musculoskeletal Musculoskeletal: Present: strength equal bilaterally - Psychiatric Psychiatric: Present: A&O x's 3, appropriate affect, intact judgment & insight - Allied health notes Allied health notes reviewed: nursing - Labs CBC & Chem 7: 05/12/20 07:49 05/12/20 07:49 Labs: Abnormal Lab Results - Last 24 Hours (Table) 05/11/20 05/12/20 05/12/20 Range/Units 11:39 07:49 07:49 WBC 25.4 H (3.8-10.6) k/uL RBC 3.86 L (4.30-5.90) m/uL Hct 38.8 L (39.0-53.0) % MCV 100.4 H (80.0-100.0) fL Sodium 135 L (137-145) mmol/L Potassium 3.4 L (3.5-5.1) mmol/L Chloride 97 L (98-107) mmol/L Carbon Dioxide 32 H (22-30) mmol/L BUN 81 H (9-20) mg/dL Creatinine 1.87 H (0.66-1.25) mg/dL Glucose 116 H (74-99) mg/dL POC Glucose (mg/dL) 130 H (75-99) mg/dL Calcium 7.7 L (8.4-10.2) mg/dL Microbiology - Last 24 Hours (Table) 05/09/20 22:01 Blood Culture - Preliminary Blood No Growth after 48 hours Assessment and Plan Assessment: 1. Large pericardial effusion with early tamponade, status post emergent percutaneous pericardial drain insertion under echo guidance, cytology pending 2. Acute kidney injury 3. Current tobacco dependence, stop smoking 2 weeks ago 4. COPD 5. Lung nodules followed by Dr. Nicole 6. History of prostate and skin cancer with resection 7. Family history of cancer Plan: 1. Attempted pericardial drainage yesterday afternoon and again this morning without any output. Pericardial drain discontinued without incident. 2. Wean O2 as tolerated 3. Increase activity as tolerated 4. Pain control current medication regimen 5. GI/DVT prophylaxis 6. Management of other medical comorbidities per primary care, cardiology, pulmonology 7. More recommendations to follow Time with Patient: Greater than 30
--- NOTE | 2020-05-12 14:19 | P.PN ---
Subjective Progress Note Date: 05/12/20 05/09/2020 74-year-old male patient presented emergency room ambulatory chief complaint of shortness of breath. In ER chest x-ray showed small pleural effusions are essentially new compared to all exam no gross heart failure. He has had a long-standing history of COPD, and noted history of smoking. He quit approximately 3 weeks ago at the onset of current symptoms. He was seen in emergency room for similar complaint earlier in the month and he has been seen in the office twice once for ER follow-up and the other for recheck. From the office he was started on 80 mg of Lasix as well as clarithromycin. With taking medications he stated there was no improvement in his symptoms and his fatigue worsened. He was also ordered a rescue inhaler but had minimal improvement with its use. He denied chest pain, unilateral numbness or weakness, orthopnea. Continue to have bilateral lower extremity peripheral edema. He has no history of hypertension, DVT or PE, denies history of heart failure, does not utilized home O2, denies fever or chills. He he denied cough and arrival in ER. Past medical history of cancer, COPD, heart appearing as related to being in the , prostate disorder, every day smoker up until current sickness. Is also noted to have a right hip. Echocardiogram this morning showed ejection fraction 40-45% with very mild left ventricular hypokinesis. Is also noted to have large global pericardial effusion without tamponade. Appears cardiology was on hand at time of echo and consulted cardiothoracic for evaluation. Dr. Jimenez saw patient in room and performed a percutaneous pericardial drainage with echo guidance in which he 850 ml of bloody pericardial fluid was drained and sent for cytology, LDH, protein, glucose. Venous Doppler duplex lower summary bilaterally was completed today impression showed early to moderate diffuse subcutaneous edema greatest towards the periphery bilaterally without acute DVT in either extremity. Current labs WBC of 19.3, hemoglobin 13.8, hematocrit 42.1, platelet count 214, neutrophils 16.1, monocytes 1.4, PT of 12.8, INR 1.3, d-dimer 1.95. Chemistry revealed a sodium 131, potassium 4.0, chloride 92, bun 97, creatinine of 2.99, lactic acid initially was 3.0 and resuscitated down to 1.9. AST 120, Whitney T O'Pratt for, initial troponin 0.0-6, which elevated later to 0.083. Most recent chart of vitals afebrile 98.2, pulse rate of 92 normal sinus rhythm, respiratory rate of 22, blood pressure 120/72, oxygen saturation 96% on 2 L nasal cannula. 05/11/2020 worsening shortness of breath, desatted into the 80s, O2 increased from 3 L to 5 L this morning, maintaining O2 sats of 91-92% currently. Nonproductive cough. Pericardial cytology pending. Last night drained approximately 50 MLS and trace drainage this morning .Mild confusion with desaturation. Worsening edema. Chest x-ray reporting increased small pleural effusions with prominent by bibasilar atelectasis/consolidation .Converted from Lasix IV push to Lasix drip. Afebrile, WBC up to 24. Complains of left chest pericardial drain site pain. Renal function is slowly improving, down to 2.35. Potassium 3.2. 05/12/2020 diuresing well on Lasix drip with 24-hour I&O reflecting a negative fluid balance. Maintained on nebulized bronchodilators with the addition of IV steroids. Continues on 5 L nasal cannula, maintaining O2 sats in the 90s. Prod uctive cough with thick yellow sputum, collected for culture. Blood cultures reporting no growth. Pericardial cytology pending. Fluid analysis exudative. WBC trending up, 25.4, afebrile.infectious disease consulted , daptomycin and cefepime initiated.Pain controlled. No drainage from pericardial drain, repeat echo performed this morning reporting trivial pericardial effusion. Renal function improving down to 1.87. Potassium 3.4. Objective - Vital Signs Vital signs: Vital Signs Temp 98.5 F 05/12/20 07:54 Pulse 89 05/12/20 08:55 Resp 20 05/12/20 07:58 BP 129/61 05/12/20 07:54 Pulse Ox 91 L 05/12/20 07:54 Intake & Output 05/11/20 05/12/20 05/12/20 18:59 06:59 18:59 Intake Total 710 655 485.25 Output Total 825 1250 Balance -115 -595 485.25 Weight 90.6 kg Intake: IV 50 Invasive Line 1 30 Invasive Line 2 20 Intake, IV Titration 175 185.25 Amount Diltiazem 125 mg In 60 86 Sodium Chloride 0.9% 100 ml @ 10 MG/HR 10 mls/hr IV .[id number] RUPERTO Rx#: [id number] Furosemide 100 mg In 55 99.25 Sodium Chloride 0.9% 90 ml @ 5 MG/HR 5 mls/hr IV .Q20H RUPERTO Rx#:[id number] Sodium Chloride 0.9% 1, 60 000 ml @ 20 mls/hr IV . Q24H RUPERTO Rx#:[id number] Oral 660 480 300 Output: Urine 825 1250 Other: Voiding Method Incontinent Diaper Diaper - Exam GENERAL: Sitting up in chair, no acute distress, increased respiratory effort HEAD: Atraumatic, normocephalic. EYES: Pupils equal round and reactive to light, sclera anicteric, conjunctiva are normal. ENT:nares patent, oropharynx clear without exudates. Oral mucosa moist. NECK: Normal range of motion, supple without lymphadenopathy or JVD, no thyromegaly LUNGS: Breath sounds diminished,Scattered rhonchi with fine bibasilar crackles ,expiratory wheezing. HEART: Regular rate and rhythm without murmurs, rubs or gallops.S1S2 Normal. Pericardial drain present. ABDOMEN: Soft, nontender, normoactive bowel sounds. No guarding, no rebound. No masses appreciated. EXTREMITIES: Normal range of motion, unchanged pitting edema bilateral lower extremities, No clubbing or cyanosis. NEUROLOGICAL: Cranial nerves II through XII grossly intact. Normal speech, . PSYCH: Normal mood, normal affect. SKIN: Warm, Dry, normal turgor, no rashes. - Labs CBC & Chem 7: 05/12/20 07:49 05/12/20 07:49 Labs: Abnormal Lab Results - Last 24 Hours (Table) 05/11/20 05/12/20 05/12/20 Range/Units 11:39 07:49 07:49 WBC 25.4 H (3.8-10.6) k/uL RBC 3.86 L (4.30-5.90) m/uL Hct 38.8 L (39.0-53.0) % MCV 100.4 H (80.0-100.0) fL Sodium 135 L (137-145) mmol/L Potassium 3.4 L (3.5-5.1) mmol/L Chloride 97 L (98-107) mmol/L Carbon Dioxide 32 H (22-30) mmol/L BUN 81 H (9-20) mg/dL Creatinine 1.87 H (0.66-1.25) mg/dL Glucose 116 H (74-99) mg/dL POC Glucose (mg/dL) 130 H (75-99) mg/dL Calcium 7.7 L (8.4-10.2) mg/dL Microbiology - Last 24 Hours (Table) 05/09/20 22:01 Blood Culture - Preliminary Blood No Growth after 48 hours Assessment and Plan Assessment: (1) large Pericardial effusion with early cardiac tamponade, status post emerge nt percutaneous pericardial drain insertion, cytology pending. Current Visit: Yes Status: Acute Code(s): I31.3 - PERICARDIAL EFFUSION (NONINFLAMMATORY) SNOMED Code(s): 424802223 (2) Acute kidney injury, cardiorenal Current Visit: Yes Status: Acute Code(s): N17.9 - ACUTE KIDNEY FAILURE, UNSPECIFIED SNOMED Code(s): 43270783 (3) COPD exacerbation Current Visit: Yes Status: Acute Code(s): J44.1 - CHRONIC OBSTRUCTIVE PULMONARY DISEASE W (ACUTE) EXACERBATION SNOMED Code(s): 634480146 (4) Pneumonia Current Visit: No Status: Acute Code(s): J18.9 - PNEUMONIA, UNSPECIFIED ORGANISM SNOMED Code(s): 829893531 (5) Shortness of breath Current Visit: Yes Status: Acute Code(s): R06.02 - SHORTNESS OF BREATH SNOMED Code(s): 051338257 (6) Edema, peripheral Current Visit: Yes Status: Acute Code(s): R60.9 - EDEMA, UNSPECIFIED SNOMED Code(s): 938300072 (7) hypokalemia secondary to diuretics (8) lactic acidosis, improved (9) acute metabolic encephalopathy secondary to hypoxia (10) acute hypoxic respiratory failure secondary to #1 (11) nicotine dependence, quit smoking 2 weeks ago (12) Lung nodules, being followed outpatient with Dr. Nicole (13) history of prostate cancer, skin cancer (14) chronic deafness (15) leukocytosis, possibly secondary to sepsis related to #1 Plan: Continue on current medication regime ,monitoring and symptomatic treatment. Pericardial cytology/cultures pending, Antibiotics as per Infectious disease. Pain management. Potassium supplements ordered with repeat level later this afternoon . Aggressive pulmonary toileting with incentive spirometer reinforced.wean O2 as per pulmonary .Lasix drip/diuresing as per nephrology .Close monitoring of renal function and electrolyte with repeat labs ordered for a.m. Prognosis guarded given multiple complex medical issues. The impression and plan of care has been dictated as directed. : I performed a history and examination of this patient, discussed the same with the dictator. I agree with the dictator's note ,documented as a scribe. Any additional findings or plans will be noted.
--- NOTE | 2020-05-12 14:53 | CT ---
EXAMINATION TYPE: CT chest wo con DATE OF EXAM: 05/12/2020 COMPARISON: 06/02/2019 HISTORY: Pulmonary nodules CT DLP: 427.[address] of the chest was performed with lung and mediastinal window settings submitted. The la ck of contrast limits evaluation of the vascular, mediastinal and parenchymal structures including th e upper abdomen. LUNGS: Again noted are right moderate underlying emphysematous changes. 7 mm nodule right upper lobe versus prior measurement of 1 cm. Previously noted additional pulmonary nodules are obscured by small -to-moderate bilateral pleural effusions measuring 4.2 cm AP dimension on the right and 4.6 cm AP dim ension on the left. There is underlying atelectasis is worse interstitial infiltrates. Underlying pne umonia is not excluded. MEDIASTINUM/AKOSUA: Thoracic aorta is of normal caliber with limited evaluation given lack of contrast . The heart is not enlarged. No evidence for mediastinal mass. No lymph nodes greater than 1cm. UPPER ABDOMEN: No significant abnormality is seen. OTHER: Left-sided mastectomy change. Subcutaneous fluid noted which may reflect anasarca. IMPRESSION: 1. Interval small to moderate bilateral pleural effusions and compressive atelectasis with coarse in terstitial infiltrates. Correlate for pneumonia. Previously described nodules are scattered with the exception of right apical scar or nodule 7 mm. Appropriate follow-up advised. 2. Anasarca changes.
[2020-05-12] MEDS: CEFEPIME 2 GM in SODIUM CHLORIDE 0.9% 100 ML IVPB SCH ×2 (14:58→20:12)
[2020-05-12 15:15] LABS: Potassium 4.2 mmol/L (3.5-5.1)
[2020-05-12 15:16] LABS: Magnesium 2.4 mg/dL (1.6-2.3)
[2020-05-12 16:43] LABS: Glucose,Whole Blood 169 mg/dL (75-99)
[2020-05-12] MEDS: INSULIN ASPART (NovoLOG) 100 UNIT/ML VIAL SQ SCH ×2 (16:48→22:06)
--- NOTE | 2020-05-12 16:59 | PN ---
PROGRESS NOTE Patient is seen for followup for acute kidney injury. He was admitted to the hospital with shortness of breath and increased lower extremity edema and volume overload. Patient was found to have a large pericardial effusion for which he has had pericardiocentesis. The pathology is still pending. There is a previous history of lung nodules. The patient's renal function has been improving. He is currently maintained on Lasix drip. His creatinine is down from 2.9 on initial admission to 1.87. Blood pressure has not been low. A 24 hour urine output at 3.7 L. Patient's weight is down by about 7 kg since admission. I am not sure this is accurate. PHYSICAL EXAMINATION: Blood pressure is 128/64, heart rate of 87 per minute, he is afebrile. Examination of the heart S1, S2. Examination of the lungs, bilateral breath sounds are heard. Decreased breath sounds at bases. Abdomen is soft, nontender. Examination of the lower extremities shows edema to 3+ bilaterally. MOP WORKER exam grossly intact. LABS: Show sodium 135, potassium 3.4, chloride 97, CO2 is 32, BUN 81, creatinine 1.87, magnesium 2.4, hemoglobin 13.0 g/dL. ASSESSMENT: 1. Acute kidney injury, mainly cardiorenal, currently improving. Continue with the Lasix drip for now. 2. Large pericardial effusion status post by pericardiocentesis pathologies pending. All serologies are negative. 3. Cardiomyopathy, ejection fraction 40%-45%. with moderate concentric LVH. 4. Hypokalemia secondary to diuretics, status post replacement. 5. Lactic acidosis currently improved. PLAN: Continue with the Lasix drip increased to 10 mg an hour overnight. Repeat labs in a.m. MMODL / IJN: [id number] /
[2020-05-12] MEDS: BUDESONIDE 1 MG/2 ML NEBU INHALATION SCH (19:00)
[2020-05-12] MEDS: clonazePAM 0.5 MG TAB PO SCH (20:12)
[2020-05-12 20:57] LABS: Glucose,Whole Blood 179 mg/dL (75-99)
[2020-05-13 02:34] LABS: Glucose,Whole Blood 136 mg/dL (75-99)
[2020-05-13] MEDS: SODIUM CHLORIDE 0.9% 1,000 ML IV SCH (04:53)
[2020-05-13] MEDS: FUROSEMIDE 100 MG in SODIUM CHLORIDE 0.9% 90 ML IV SCH ×3 (05:24→21:37)
[2020-05-13 06:37] LABS: Glucose,Whole Blood 161 mg/dL (75-99)
[2020-05-13] MEDS: INSULIN ASPART (NovoLOG) 100 UNIT/ML VIAL SQ SCH ×4 (06:42→21:37)
[2020-05-13 07:06] LABS: Basophils % (A) 0 %; Eosinophils % (A) 0 %; HCT 41.5 % (39.0-53.0); Lymphocytes # (A) 0.3 k/uL (1.0-4.8); Lymphocytes % (A) 2 %; MCHC 31.2 g/dL (31.0-37.0); MCV 99.4 fL (80.0-100.0); Mean Platelet Volume 8.6; Monocytes # (A) 0.8 k/uL (0-1.0); Monocytes % (A) 5 %; Neutrophils # (A) 16.4 k/uL (1.3-7.7); Neutrophils % (A) 93 %; Platelet Count 152 k/uL (150-450); RBC 4.18 m/uL (4.30-5.90); RDW 14.1 % (11.5-15.5); WBC 17.7 k/uL (3.8-10.6)
[2020-05-13 07:19] LABS: Calcium 7.9 mg/dL (8.4-10.2); Potassium 3.5 mmol/L (3.5-5.1)
[2020-05-13] MEDS: FORMOTEROL FUMARATE 20 MCG/2 ML NEBU INHALATION SCH (08:09)
[2020-05-13] MEDS: IPRATROPIUM-ALBUTEROL 3 ML NEB INHALATION SCH ×5 (08:09→19:38)
[2020-05-13] MEDS: BUDESONIDE 1 MG/2 ML NEBU INHALATION SCH (08:09)
[2020-05-13] MEDS: SENNOSIDES-DOCUSATE SODIUM 1 EACH TAB PO SCH ×2 (08:32→21:02)
[2020-05-13] MEDS: methylPREDNISolone SOD SUCCI 40 MG/ML 1 ML VIAL IV SCH ×3 (08:32→23:06)
[2020-05-13] MEDS: PANTOPRAZOLE 40 MG TABLET PO SCH (08:32)
[2020-05-13] MEDS: DOCUSATE 100 MG CAP PO SCH ×2 (08:32→21:02)
[2020-05-13] MEDS: POTASSIUM CHLORIDE ER 20 MEQ TAB.ER PO SCH ×2 (08:32→09:12)
[2020-05-13] MEDS: METOPROLOL TARTRATE 25 MG TAB PO SCH ×2 (08:32→19:56)
[2020-05-13] MEDS: CEFEPIME 2 GM in SODIUM CHLORIDE 0.9% 100 ML IVPB SCH ×2 (09:14→19:56)
--- NOTE | 2020-05-13 10:03 | P.CONS ---
History of Present Illness - Reason for Consult Consult date: 05/12/20 Leukocytosis and sepsis Requesting physician: Giovanna Barlow - Chief Complaint Shortness of breath x weeks - History of Present Illness Patient is a 74-year-old male with a past medical history significant for COPD presented to the ER at [facility] on 05/09/2020 with a chief complaints of increasing shortness of breath that has been getting worse for the last 3 weeks, apparently the Patient had been seen in the ER for similar symptoms as well as by his primary care physician and has been treated with Lasix and clarithromycin without any improvement, with worsening shortness of breath on minimal exertion even at rest patient denies having any chest pain he did have a cough with minimal whitish sputum and no hemoptysis patient denies having any high-grade fever rigors or chills with these symptoms the patient was evaluated by the physician on arrival to the patient was afebrile however he did have elevated white count of 19,000 patient did have a chest x-ray with evidence of bilateral pleural effusion subsequently the patient did have an echocardiogram which shows a large pericardial effusion with tamponade phenomena patient was seen by CT surgery and did have pericardial drain insertion under echo guidance on 05/11/2020 with the drainage of 850 mL of dark hemorrhagic fluid which was sent for cytology no culture were done and emesis did indicate it was exudative fluid patient remains to be afebrile and this morning was noticed to have his white count up to 25,000 with concern for sepsis infectious disease has been consulted for recommendation regarding antibiotic therapy, patient of the time of evaluation feeling better after his pericardial fluid drainage is breathing more comfortably currently have a cough which is mild to moderate in intensity with the whitish sputum no hemoptysis denies having any URI symptoms no nausea no vomiting and no abdominal pain and no diarrhea and no urinary symptoms Review of Systems Positive point has been mentioned in the HPI rest of the systems are negative Past Medical History Past Medical History: Cancer, COPD, Hearing Disorder / Deafness, Prostate Disorder Additional Past Medical History / Comment(s): hx skin cancer, prostate cancer (2016)., 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 History of Any Multi-Drug Resistant Organisms: None Reported Past Surgical History: Joint Replacement Additional Past Surgical History / Comment(s): rt hip replacement Past Anesthesia/Blood Transfusion Reactions: No Reported Reaction Additional Past Anesthesia/Blood Transfusion Reaction / Comm: Claustrophobic. Past Psychological History: No Psychological Hx Reported Smoking Status: Current every day smoker Past Alcohol Use History: None Reported, Heavy Past Drug Use History: None Reported - Past Family History Mother Family Medical History: Cancer Additional Family Medical History / Comment(s): breast cancer Medications and Allergies Home Medications Medication Instructions Recorded Confirmed Type Melatonin 10 mg PO HS PRN 03/01/19 05/09/20 History Multivitamin [Multivitamins Adult 1 tab PO DAILY 03/01/19 05/09/20 History Gummies] Umeclidinium Brm/Vilanterol Tr 1 puff INHALATION RT-DAILY 03/01/19 05/09/20 History [Anoro Ellipta 62.5-25 Mcg INH] clonazePAM [KlonoPIN] 0.5 mg PO HS 03/01/19 05/09/20 History Albuterol Inhaler [Ventolin Hfa 2 puff INHALATION RT-QID #2 puff 04/27/20 05/09/20 Rx Inhaler] Albuterol Nebulized [Ventolin 2.5 mg INHALATION RT-QID 05/09/20 05/09/20 History Nebulized] Clarithromycin [Biaxin] 500 mg PO BID 05/09/20 05/09/20 History Furosemide [Lasix] 80 mg PO DAILY 05/09/20 05/09/20 History Allergies Allergy/AdvReac Type Severity Reaction Status Date / Time Sulfa (Sulfonamide Allergy Unknown Rash/Hives Verified 05/09/20 22:32 Antibiotics) tetracycline Allergy Unknown UNKNOWN- Verified 05/09/20 22:32 TAKEN FROM OR BOARDING SHEET. Physical Exam Vitals: Vital Signs Temp Pulse Pulse Resp BP Pulse Ox 05/13/20 08:30 100 05/13/20 08:21 96 05/13/20 08:20 96 05/13/20 08:11 96 05/13/20 08:00 98 F 88 20 134/70 91 L 05/13/20 03:23 97.7 F 97 20 138/77 92 L 05/13/20 00:00 98.2 F 91 18 127/67 95 05/12/20 20:00 98.2 F 102 H 18 129/66 92 L 05/12/20 19:24 92 20 05/12/20 19:14 94 18 05/12/20 19:00 90 18 05/12/20 16:10 92 18 05/12/20 15:58 90 18 93 L 05/12/20 15:00 97.6 F 87 20 128/64 92 L 05/12/20 12:25 92 05/12/20 12:12 92 05/12/20 11:56 20 05/12/20 11:55 98.3 F 87 20 123/72 94 L Intake and Output 05/12/20 05/13/20 05/13/20 22:59 06:59 14:59 Intake Total 626.417 302 Output Total 775 925 Balance -148.583 -623 Intake: IV 20 110 Furosemide 100 mg In 110 Sodium Chloride 0.9% 90 ml @ 10 MG/HR 10 mls/hr IV .Q10H [facility] Rx#: [id number] Invasive Line 2 10 Invasive Line 4 10 Intake, IV Titration 70.417 192 Amount Cefepime 2 gm In Sodium 100 Chloride 0.9% 100 ml @ 200 mls/hr IVPB Q12HR [facility] Rx#:[id number] Furosemide 100 mg In 70.417 92 Sodium Chloride 0.9% 90 ml @ 10 MG/HR 10 mls/hr IV .Q10H [facility]O Rx#: [id number] Oral 536 Output: Urine 775 925 Other: Voiding Method Diaper Diaper Diaper # Voids 1 1 Weight 88.1 kg GENERAL DESCRIPTION: Elderly male up in the chair, no distress. No tachypnea or accessory muscle of respiration use. HEENT: Shows Pallor , no scleral icterus. Oral mucous membrane is dry. No pharyngeal erythema or thrush NECK: Trachea central, no thyromegaly. LUNGS: Unlabored breathing. Decreased breath sound at the base No wheeze or crackle. HEART: S1, S2, regular rate and rhythm. No loud murmur ABDOMEN: Soft, no tenderness , guarding or rigidity, no organomegaly EXTREMITIES: No edema of feet. SKIN: No rash, no masses palpable. NEUROLOGICAL: The patient is awake, alert, oriented x3, mood and affect normal. Results CBC & Chem 7: 05/13/20 06:10 05/13/20 06:10 Labs: Abnormal Lab Results - Last 24 Hours (Table) 05/12/20 05/12/20 05/12/20 Range/Units 14:28 16:42 20:55 WBC (3.8-10.6) k/uL RBC (4.30-5.90) m/uL Neutrophils # (1.3-7.7) k/uL Lymphocytes # (1.0-4.8) k/uL Sodium (137-145) mmol/L Chloride (98-107) mmol/L Carbon Dioxide (22-30) mmol/L BUN (9-20) mg/dL Creatinine (0.66-1.25) mg/dL Glucose (74-99) mg/dL POC Glucose (mg/dL) 169 H 179 H (75-99) mg/dL Calcium (8.4-10.2) mg/dL Magnesium 2.4 H (1.6-2.3) mg/dL 05/13/20 05/13/20 05/13/20 Range/Units 02:32 06:10 06:10 WBC 17.7 H (3.8-10.6) k/uL RBC 4.18 L (4.30-5.90) m/uL Neutrophils # 16.4 H (1.3-7.7) k/uL Lymphocytes # 0.3 L (1.0-4.8) k/uL Sodium 134 L (137-145) mmol/L Chloride 93 L (98-107) mmol/L Carbon Dioxide 34 H (22-30) mmol/L BUN 69 H (9-20) mg/dL Creatinine 1.68 H (0.66-1.25) mg/dL Glucose 145 H (74-99) mg/dL POC Glucose (mg/dL) 136 H (75-99) mg/dL Calcium 7.9 L (8.4-10.2) mg/dL Magnesium (1.6-2.3) mg/dL 05/13/20 Range/Units 06:36 WBC (3.8-10.6) k/uL RBC (4.30-5.90) m/uL Neutrophils # (1.3-7.7) k/uL Lymphocytes # (1.0-4.8) k/uL Sodium (137-145) mmol/L Chloride (98-107) mmol/L Carbon Dioxide (22-30) mmol/L BUN (9-20) mg/dL Creatinine (0.66-1.25) mg/dL Glucose (74-99) mg/dL POC Glucose (mg/dL) 161 H (75-99) mg/dL Calcium (8.4-10.2) mg/dL Magnesium (1.6-2.3) mg/dL Microbiology - Last 24 Hours (Table) 05/12/20 09:30 Gram Stain - Preliminary Sputum Sputum Culture - Preliminary 05/09/20 22:01 Blood Culture - Preliminary Blood No Growth after 72 hours 05/11/20 09:45 Blood Culture - Preliminary Blood No Growth after 24 hours 05/11/20 09:50 Blood Culture - Preliminary Blood No Growth after 24 hours Assessment and Plan Assessment: 1-patient with worsening leukocytosis in this patient admitted to hospital with increasing shortness of breath was noticed to have a large pericardial effusion with tamponade phenomena status post emergent pericardial drain placement with drainage of bloody dark fluid which has been sent for cytology analysis indicated a resident of fluid but no culture has been done in this patient curr ently not running any fever more likely reactive leukocytosis , as along as of any purulence on the pericardial fluid and bacterial pericarditis is very rare currently with no other obvious focus of infection and suspicion of underlying pneumonia abdominal soft and examination and no evidence of any cellulitis 2-Patient with multiple antibiotic ALLERGIES that would limit the number of antibiotic safe to use 3-renal insufficiency with low creatinine clearance and high risk of nephrotoxicity from certain antibiotics (1) SIRS (systemic inflammatory response syndrome) Current Visit: Yes Status: Acute Code(s): R65.10 - SIRS OF NON-INFECTIOUS ORIGIN W/O ACUTE ORGAN DYSFUNCTION SNOMED Code(s): 147628527 (2) Leukocytosis Current Visit: Yes Status: Acute Code(s): D72.829 - ELEVATED WHITE BLOOD CELL COUNT, UNSPECIFIED SNOMED Code(s): 983757941 Plan: 1- we will empirically start the patient cefepime 2 g every 12 hours and daptomycin while waiting for his condition stabilized and culture finalized We will follow on clinical condition and cultures to further adjust medication if needed Thank you for this consultation will follow this patient with you Time with Patient: Greater than 30
--- NOTE | 2020-05-13 10:36 | P.PN ---
Subjective Progress Note Date: 05/13/20 Principal diagnosis: Shortness of breath 05/09/2020 74-year-old male patient presented emergency room ambulatory chief complaint of shortness of breath. In ER chest x-ray showed small pleural effusions are essentially new compared to all exam no gross heart failure. He has had a long-standing history of COPD, and noted history of smoking. He quit approximately 3 weeks ago at the onset of current symptoms. He was seen in emergency room for similar complaint earlier in the month and he has been seen in the office twice once for ER follow-up and the other for recheck. From the office he was started on 80 mg of Lasix as well as clarithromycin. With taking medications he stated there was no improvement in his symptoms and his fatigue worsened. He was also ordered a rescue inhaler but had minimal improvement with its use. He denied chest pain, unilateral numbness or weakness, orthopnea. Continue to have bilateral lower extremity peripheral edema. He has no history of hypertension, DVT or PE, denies history of heart failure, does not utilized home O2, denies fever or chills. He he denied cough and arrival in ER. Past medical history of cancer, COPD, heart appearing as related to being in the , prostate disorder, every day smoker up until current sickness. Is also noted to have a right hip. Echocardiogram this morning showed ejection fraction 40-45% with very mild left ventricular hypokinesis. Is also noted to have large global pericardial effusion without tamponade. Appears cardiology was on hand at time of echo and consulted cardiothoracic for evaluation. Dr. Jimenez saw patient in room and performed a percutaneous pericardial drainage with echo guidance in which he 850 ml of bloody pericardial fluid was drained and sent for cytology, LDH, protein, glucose. Venous Doppler duplex lower summary bilaterally was completed today impression showed early to moderate diffuse subcutaneous edema greatest towards the periphery bilaterally without acute DVT in either extremity. Current labs WBC of 19.3, hemoglobin 13.8, hematocrit 42.1, platelet count 214, neutrophils 16.1, monocytes 1.4, PT of 12.8, INR 1.3, d-dimer 1.95. Chemistry revealed a sodium 131, potassium 4.0, chloride 92, bun 97, creatinine of 2.99, lactic acid initially was 3.0 and resuscitated down to 1.9. AST 120, Whitney T O'Leonid for, initial troponin 0.0-6, which elevated later to 0.083. Most recent chart of vitals afebrile 98.2, pulse rate of 92 normal sinus rhythm, respiratory rate of 22, blood pressure 120/72, oxygen saturation 96% on 2 L nasal cannula. 05/13/2020 patient sitting up in bed, resting comfortably at this time, with no complaints. Currently on a Lasix for diuresis, fluid balance for the past 24 hours and -743 mL. Weight is down 2.5 kg from yesterday. Lung sounds with mild scattered rhonchi throughout. Continues on 3 L nasal cannula to me oxygen saturations in the mid 90s. Blood pressure and heart rate remained stable throughout the night with no known episode of A. fib/flutter. Pericardial cytology is pending. WBC count 17.7 down from 25.4. IV antibiotics of cefepime and daptomycin. Pericardial drain was removed yesterday,current dressing is dry and intact the follow-up echocardiogram showed pericardial effusion is trivial. Renal function is improving with a creatinine 1.68. Patient has not had a bowel movement in 4 days, stool softeners have been implemented Objective - Vital Signs Vital signs: Vital Signs Temp 98 F 05/13/20 08:00 Pulse 100 05/13/20 08:30 Resp 20 05/13/20 08:00 BP 134/70 05/13/20 08:00 Pulse Ox 91 L 05/13/20 08:00 Intake & Output 05/12/20 05/13/20 05/13/20 18:59 06:59 18:59 Intake Total 1286.00 327.667 Output Total 1125 1225 Balance 161.00 -897.333 Weight 88.1 kg Intake: IV 20 110 Furosemide 100 mg In 110 Sodium Chloride 0.9% 90 ml @ 10 MG/HR 10 mls/hr IV .Q10H [facility] Rx#: [id number] Invasive Line 2 10 Invasive Line 4 10 Intake, IV Titration 230.00 217.667 Amount Cefepime 2 gm In Sodium 100 Chloride 0.9% 100 ml @ 200 mls/hr IVPB Q12HR [facility] Rx#:[id number] Diltiazem 125 mg In 86 Sodium Chloride 0.9% 100 ml @ 10 MG/HR 10 mls/hr IV .[id number] [facility] Rx#: [id number] Furosemide 100 mg In 144.00 117.667 Sodium Chloride 0.9% 90 ml @ 10 MG/HR 10 mls/hr IV .Q10H [facility] Rx#: [id number] Oral 1036 Output: Urine 1125 1225 Other: Voiding Method Diaper Diaper Diaper # Voids 1 - Exam GENERAL: Well-appearing, well-nourished and in no acute distress. HEAD: Atraumatic, normocephalic. EYES: Pupils equal round and reactive to light, extraocular movements intact, sclera anicteric, conjunctiva are normal. ENT:nares patent, oropharynx clear without exudates. Moist mucous membranes. NECK: Normal range of motion, supple without lymphadenopathy or JVD, no thyromegaly LUNGS: Breath sounds with scattered rhonchi, No wheezes or rales. HEART: Regular rate and rhythm without murmurs, rubs or gallops.S1S2 Normal ABDOMEN: Firm, nontender, normoactive bowel sounds. No guarding, no rebound. No masses appreciated. EXTREMITIES: Normal range of motion, +2-3 pitting edema to bilateral lower extremities. Pulses intact No clubbing or cyanosis. NEUROLOGICAL: Cranial nerves II through XII grossly intact. Normal speech, normal gait. PSYCH: Normal mood, normal affect. SKIN: Warm, Dry, normal turgor, no rashes or lesions noted. - Labs CBC & Chem 7: 05/13/20 06:10 05/13/20 06:10 Labs: Abnormal Lab Results - Last 24 Hours (Table) 05/12/20 05/12/20 05/12/20 Range/Units 14:28 16:42 20:55 WBC (3.8-10.6) k/uL RBC (4.30-5.90) m/uL Neutrophils # (1.3-7.7) k/uL Lymphocytes # (1.0-4.8) k/uL Sodium (137-145) mmol/L Chloride (98-107) mmol/L Carbon Dioxide (22-30) mmol/L BUN (9-20) mg/dL Creatinine (0.66-1.25) mg/dL Glucose (74-99) mg/dL POC Glucose (mg/dL) 169 H 179 H (75-99) mg/dL Calcium (8.4-10.2) mg/dL Magnesium 2.4 H (1.6-2.3) mg/dL 05/13/20 05/13/20 05/13/20 Range/Units 02:32 06:10 06:10 WBC 17.7 H (3.8-10.6) k/uL RBC 4.18 L (4.30-5.90) m/uL Neutrophils # 16.4 H (1.3-7.7) k/uL Lymphocytes # 0.3 L (1.0-4.8) k/uL Sodium 134 L (137-145) mmol/L Chloride 93 L (98-107) mmol/L Carbon Dioxide 34 H (22-30) mmol/L BUN 69 H (9-20) mg/dL Creatinine 1.68 H (0.66-1.25) mg/dL Glucose 145 H (74-99) mg/dL POC Glucose (mg/dL) 136 H (75-99) mg/dL Calcium 7.9 L (8.4-10.2) mg/dL Magnesium (1.6-2.3) mg/dL 05/13/20 Range/Units 06:36 WBC (3.8-10.6) k/uL RBC (4.30-5.90) m/uL Neutrophils # (1.3-7.7) k/uL Lymphocytes # (1.0-4.8) k/uL Sodium (137-145) mmol/L Chloride (98-107) mmol/L Carbon Dioxide (22-30) mmol/L BUN (9-20) mg/dL Creatinine (0.66-1.25) mg/dL Glucose (74-99) mg/dL POC Glucose (mg/dL) 161 H (75-99) mg/dL Calcium (8.4-10.2) mg/dL Magnesium (1.6-2.3) mg/dL Microbiology - Last 24 Hours (Table) 05/12/20 09:30 Gram Stain - Preliminary Sputum Sputum Culture - Preliminary 05/09/20 22:01 Blood Culture - Preliminary Blood No Growth after 72 hours 05/11/20 09:45 Blood Culture - Preliminary Blood No Growth after 24 hours 05/11/20 09:50 Blood Culture - Preliminary Blood No Growth after 24 hours Assessment and Plan (1) Pericardial effusion without cardiac tamponade Current Visit: Yes Status: Acute Code(s): I31.3 - PERICARDIAL EFFUSION ( NONINFLAMMATORY) SNOMED Code(s): 418496632 (2) Acute kidney injury Current Visit: Yes Status: Acute Code(s): N17.9 - ACUTE KIDNEY FAILURE, UNSPECIFIED SNOMED Code(s): 81158619 (3) COPD exacerbation Current Visit: Yes Status: Acute Code(s): J44.1 - CHRONIC OBSTRUCTIVE PULMONARY DISEASE W (ACUTE) EXACERBATION SNOMED Code(s): 529706852 (4) Pneumonia Current Visit: No Status: Acute Code(s): J18.9 - PNEUMONIA, UNSPECIFIED ORGANISM SNOMED Code(s): 681965074 (5) Shortness of breath Current Visit: Yes Status: Acute Code(s): R06.02 - SHORTNESS OF BREATH SNOMED Code(s): 731039705 (6) Edema, peripheral Current Visit: Yes Status: Acute Code(s): R60.9 - EDEMA, UNSPECIFIED SNOMED Code(s): 677267773 (7) Constipation Current Visit: Yes Status: Acute Code(s): K59.00 - CONSTIPATION, UNSPECIFIED SNOMED Code(s): 34271100 Plan: 1. Continue current medication regimen. 2. Monitor and treat symptomatically. 3. Continue with bowel regimen until success. 4. We'll continue utilizing incentive spirometry at least 10 times an hour while awake. 5. Aggressive pulmonary toileting. 6. Will await cytology results for pericardial fluid. 7. Continue IV Lasix for diuresis as per nephrology. 8. Antibiotics as per infectious disease. 9. Electrolyte supplements as per protocol. 10. We'll order labs for CBC with differential and a basic metabolic panel for tomorrow. 11. We will continue to follow closely and reassess tomorrow. Time with Patient: Greater than 30
[2020-05-13 11:51] LABS: Glucose,Whole Blood 118 mg/dL (75-99)
--- NOTE | 2020-05-13 12:01 | P.PN ---
Subjective Progress Note Date: 05/13/20 Principal diagnosis: Large pericardial effusion with early tamponade, acute kidney injury, pneumonia. History of current tobacco dependence, stop smoking 2 weeks ago, COPD, lung n odules followed by Dr. Nicole, prostate and skin cancer with resection, family history of cancer POD #3 emergent percutaneous pericardial drain insertion under echo guidance Patient's currently sitting up in bed in no acute distress. States pain is controlled on current medication regimen, some short of breath but better than prior. Continues to have loose cough. Pericardial drain removed yesterday. Cytology still pending. Remains in sinus rhythm. Infectious disease on board, cefepime and daptomycin added. CT of chest completed yesterday, demonstrates small to moderate bilateral pleural effusions and compressive atelectasis with coarse interstitial infiltrates, right upper lobe nodule 7 mm versus prior measurement of 1 cm in May 2019. at bedside, care was discussed with the patient and his . All questions answered. Objective - Vital Signs Vital signs: Vital Signs Temp 98 F 05/13/20 08:00 Pulse 96 05/13/20 11:27 Resp 20 05/13/20 08:00 BP 134/70 05/13/20 08:00 Pulse Ox 91 L 05/13/20 08:00 Intake & Output 05/12/20 05/13/20 05/13/20 18:59 06:59 18:59 Intake Total 1286.00 327.667 360 Output Total 1125 1225 Balance 161.00 -897.333 360 Weight 88.1 kg Intake: IV 20 110 Furosemide 100 mg In 110 Sodium Chloride 0.9% 90 ml @ 10 MG/HR 10 mls/hr IV .Q10H [facility] Rx#: [id number] Invasive Line 2 10 Invasive Line 4 10 Intake, IV Titration 230.00 217.667 Amount Cefepime 2 gm In Sodium 100 Chloride 0.9% 100 ml @ 200 mls/hr IVPB Q12HR [facility] Rx#:[id number] Diltiazem 125 mg In 86 Sodium Chloride 0.9% 100 ml @ 10 MG/HR 10 mls/hr IV .[id number] [facility] Rx#: [id number] Furosemide 100 mg In 144.00 117.667 Sodium Chloride 0.9% 90 ml @ 10 MG/HR 10 mls/hr IV .Q10H [facility] Rx#: [id number] Oral 1036 360 Output: Urine 1125 1225 Other: Voiding Method Diaper Diaper Diaper # Voids 1 1 - Constitutional General appearance: Present: cooperative, no acute distress - Respiratory Details: Lungs sounds diminished bilaterally with expiratory wheezes present. Respirations even, slightly labored. Currently on 3 L nasal cannula with oxygen saturation 91%. Able to achieve 1500 mL on his incentive spirometry. - Cardiovascular Details: S1, S2 present. Regular rate and rhythm, sinus rhythm on telemetry. Palpable peripheral pulses bilaterally. Bilateral lower extremity 2+ edema present. Pericardial drain present, capped - Gastrointestinal Gastrointestinal Comment(s): Abdomen soft, nontender, nondistended. Active bowel sounds present 4 quadrants. Tolerating diet. - Genitourinary Genitourinary Comment(s): Continues to void clear, yellow urine - Integumentary Integumentary Comment(s): Skin is warm and dry with evidence of good perfusion - Neurologic Neurologic: Present: CNII-XII intact - Musculoskeletal Musculoskeletal: Present: gait normal, strength equal bilaterally - Psychiatric Psychiatric: Present: A&O x's 3, appropriate affect, intact judgment & insight - Allied health notes Allied health notes reviewed: nursing - Labs CBC & Chem 7: 05/13/20 06:10 05/13/20 06:10 Labs: Abnormal Lab Results - Last 24 Hours (Table) 05/12/20 05/12/20 05/12/20 Range/Units 14:28 16:42 20:55 WBC (3.8-10.6) k/uL RBC (4.30-5.90) m/uL Neutrophils # (1.3-7.7) k/uL Lymphocytes # (1.0-4.8) k/uL Sodium (137-145) mmol/L Chloride (98-107) mmol/L Carbon Dioxide (22-30) mmol/L BUN (9-20) mg/dL Creatinine (0.66-1.25) mg/dL Glucose (74-99) mg/dL POC Glucose (mg/dL) 169 H 179 H (75-99) mg/dL Calcium (8.4-10.2) mg/dL Magnesium 2.4 H (1.6-2.3) mg/dL 05/13/20 05/13/20 05/13/20 Range/Units 02:32 06:10 06:10 WBC 17.7 H (3.8-10.6) k/uL RBC 4.18 L (4.30-5.90) m/uL Neutrophils # 16.4 H (1.3-7.7) k/uL Lymphocytes # 0.3 L (1.0-4.8) k/uL Sodium 134 L (137-145) mmol/L Chloride 93 L (98-107) mmol/L Carbon Dioxide 34 H (22-30) mmol/L BUN 69 H (9-20) mg/dL Creatinine 1.68 H (0.66-1.25) mg/dL Glucose 145 H (74-99) mg/dL POC Glucose (mg/dL) 136 H (75-99) mg/dL Calcium 7.9 L (8.4-10.2) mg/dL Magnesium (1.6-2.3) mg/dL 05/13/20 Range/Units 06:36 WBC (3.8-10.6) k/uL RBC (4.30-5.90) m/uL Neutrophils # (1.3-7.7) k/uL Lymphocytes # (1.0-4.8) k/uL Sodium (137-145) mmol/L Chloride (98-107) mmol/L Carbon Dioxide (22-30) mmol/L BUN (9-20) mg/dL Creatinine (0.66-1.25) mg/dL Glucose (74-99) mg/dL POC Glucose (mg/dL) 161 H (75-99) mg/dL Calcium (8.4-10.2) mg/dL Magnesium (1.6-2.3) mg/dL Microbiology - Last 24 Hours (Table) 05/12/20 09:30 Gram Stain - Preliminary Sputum Sputum Culture - Preliminary 05/09/20 22:01 Blood Culture - Preliminary Blood No Growth after 72 hours 05/11/20 09:45 Blood Culture - Preliminary Blood No Growth after 24 hours 05/11/20 09:50 Blood Culture - Preliminary Blood No Growth after 24 hours - Imaging and Cardiology CT scan - chest: report reviewed, image reviewed Assessment and Plan Assessment: 1. Large pericardial effusion with early tamponade, status post emergent percutaneous pericardial drain insertion under echo guidance, cytology pending 2. Acute kidney injury 3. Current tobacco dependence, stop smoking 2 weeks ago 4. COPD 5. Lung nodules followed by Dr. Nicole 6. History of prostate and skin cancer with resection 7. Family history of cancer Plan: 1. Await cytology results to further treatment plan 2. Continue antibiotics per infectious disease 3. Increase activity as tolerated 4. Pain control current medication regimen 5. GI/DVT prophylaxis 6. Management of other medical comorbidities per primary care, cardiology, pulmonology 7. More recommendations to follow Time with Patient: Greater than 30
--- NOTE | 2020-05-13 12:43 | P.PN ---
Subjective Progress Note Date: 05/13/20 Principal diagnosis: Large pericardial effusion with early tamponade The patient is seen today 05/12/2020 in follow-up on the selective care unit. He is currently resting fairly comfortably in bed. Awake and alert in no acute distress. He does have a worsening congested cough. Some shortness of breath. Currently on 5 L high flow nasal cannula to maintain O2 saturations in the 90s. He is afebrile. Hemodynamically stable. Blood cultures reveal no growth. Paracardial fluid cytology pending. Fluid analysis revealed significant bloody fluid with high WBCs. Exudative in nature with high-protein high LDH. White count 25.4. Hemoglobin 13.0. Sodium 135. Potassium 3.4. Creatinine 1.87. MAXWELL, p-ANCA, c-ANCA, DNA antibodies all negative. Infectious diseases been c onsulted. Follow up echocardiogram reveals trivial pericardial effusion. Plan is for possible catheter removal today. Minimal output. The patient is seen today 05/13/2020 in follow-up on the selective care unit. He is currently resting quite comfortable in bed. Awake and alert in no acute distress. Breathing a little easier today compared to yesterday. Maintaining O2 saturations in the low 90s on 3 L/m per nasal cannula. He's been afebrile. Hemodynamically stable. Pericardial catheter was removed yesterday. Pathology pending. Computed tomography scan of the chest reveals small to moderate bilateral pleural effusions with compressive atelectasis with coarse interstitial infiltrates. Previously described nodules are scattered with the exception of right apical scar or nodule 7 mm. Being followed in the outpatient setting. Blood culture reveals no growth to date. Sputum culture pending. White count 17.7. Hemoglobin 13.0. Sodium 134. Potassium 3.5. Creatinine 1.68. He remains on Symbicort, bronchodilators, IV Solu-Medrol. Antibiotics in the form of daptomycin and cefepime. He remains on a Lasix drip at 10 mg an hour. Objective - Vital Signs Vital signs: Vital Signs Temp 98 F 05/13/20 08:00 Pulse 96 05/13/20 11:27 Resp 20 05/13/20 08:00 BP 134/70 05/13/20 08:00 Pulse Ox 91 L 05/13/20 08:00 Intake & Output 05/12/20 05/13/20 05/13/20 18:59 06:59 18:59 Intake Total 1286.00 327.667 360 Output Total 1125 1225 Balance 161.00 -897.333 360 Weight 88.1 kg Intake: IV 20 110 Furosemide 100 mg In 110 Sodium Chloride 0.9% 90 ml @ 10 MG/HR 10 mls/hr IV .Q10H [facility]O Rx#: [id number] Invasive Line 2 10 Invasive Line 4 10 Intake, IV Titration 230.00 217.667 Amount Cefepime 2 gm In Sodium 100 Chloride 0.9% 100 ml @ 200 mls/hr IVPB Q12HR [facility] Rx#:[id number] Diltiazem 125 mg In 86 Sodium Chloride 0.9% 100 ml @ 10 MG/HR 10 mls/hr IV .[id number] [facility] Rx#: [id number] Furosemide 100 mg In 144.00 117.667 Sodium Chloride 0.9% 90 ml @ 10 MG/HR 10 mls/hr IV .Q10H [facility]O Rx#: [id number] Oral 1036 360 Output: Urine 1125 1225 Other: Voiding Method Diaper Diaper Diaper # Voids 1 1 - Exam GENERAL EXAM: Alert, very pleasant, 74-year-old gentleman, on 3 L of oxygen with a pulse ox of 91%, comfortable in no apparent distress. HEAD: Normocephalic/atraumatic. EYES: Normal reaction of pupils, equal size. Conjunctiva pink, sclera white. NOSE: Clear with pink turbinates. THROAT: No erythema or exudates. NECK: No masses, no JVD, no thyroid enlargement, no adenopathy. CHEST: No chest wall deformity. Symmetrical expansion. Anterior left chest triple-lumen catheter removed. LUNGS: Equal air entry with few scattered rhonchi, basilar crackles, end expiratory wheeze. CVS: Regular rate and rhythm, normal S1 and S2, no gallops, no murmurs, no rubs ABDOMEN: Soft, nontender. No hepatosplenomegaly, normal bowel sounds, no guarding or rigidity. EXTREMITIES: No clubbing, no edema, no cyanosis, 2+ pulses and upper and lower extremities. MUSCULOSKELETAL: Muscle strength and tone normal. SPINE: No scoliosis or deformity SKIN: No rashes CENTRAL NERVOUS SYSTEM: No focal deficits, tone is normal in all 4 extremities. PSYCHIATRIC: Alert and oriented -3. Appropriate affect. Intact judgment and insight. - Labs CBC & Chem 7: 05/13/20 06:10 05/13/20 06:10 Labs: Abnormal Lab Results - Last 24 Hours (Table) 05/12/20 05/12/20 05/12/20 Range/Units 14:28 16:42 20:55 WBC (3.8-10.6) k/uL RBC (4.30-5.90) m/uL Neutrophils # (1.3-7.7) k/uL Lymphocytes # (1.0-4.8) k/uL Sodium (137-145) mmol/L Chloride (98-107) mmol/L Carbon Dioxide (22-30) mmol/L BUN (9-20) mg/dL Creatinine (0.66-1.25) mg/dL Glucose (74-99) mg/dL POC Glucose (mg/dL) 169 H 179 H (75-99) mg/dL Calcium (8.4-10.2) mg/dL Magnesium 2.4 H (1.6-2.3) mg/dL 05/13/20 05/13/20 05/13/20 Range/Units 02:32 06:10 06:10 WBC 17.7 H (3.8-10.6) k/uL RBC 4.18 L (4.30-5.90) m/uL Neutrophils # 16.4 H (1.3-7.7) k/uL Lymphocytes # 0.3 L (1.0-4.8) k/uL Sodium 134 L (137-145) mmol/L Chloride 93 L (98-107) mmol/L Carbon Dioxide 34 H (22-30) mmol/L BUN 69 H (9-20) mg/dL Creatinine 1.68 H (0.66-1.25) mg/dL Glucose 145 H (74-99) mg/dL POC Glucose (mg/dL) 136 H (75-99) mg/dL Calcium 7.9 L (8.4-10.2) mg/dL Magnesium (1.6-2.3) mg/dL 05/13/20 05/13/20 Range/Units 06:36 11:50 WBC (3.8-10.6) k/uL RBC (4.30-5.90) m/uL Neutrophils # (1.3-7.7) k/uL Lymphocytes # (1.0-4.8) k/uL Sodium (137-145) mmol/L Chloride (98-107) mmol/L Carbon Dioxide (22-30) mmol/L BUN (9-20) mg/dL Creatinine (0.66-1.25) mg/dL Glucose (74-99) mg/dL POC Glucose (mg/dL) 161 H 118 H (75-99) mg/dL Calcium (8.4-10.2) mg/dL Magnesium (1.6-2.3) mg/dL Microbiology - Last 24 Hours (Table) 05/11/20 09:50 Blood Culture - Preliminary Blood No Growth after 48 hours 05/11/20 09:45 Blood Culture - Preliminary Blood No Growth after 48 hours 05/12/20 09:30 Gram Stain - Preliminary Sputum Sputum Culture - Preliminary 05/09/20 22:01 Blood Culture - Preliminary Blood No Growth after 72 hours Assessment and Plan Assessment: #1. Large pericardial effusion with early tamponade, status post emergent percutaneous pericardial drain insertion under echo guidance, postop day 1, with immediate removal of 850 ML of bloody pericardial fluid which was sent for analysis, cultures and cytology are pending. Follow-up echocardiogram reveals trivial remaining effusion. #2. Severe dyspnea acute hypoxic respiratory failure related to the above #3. Acute kidney injury, improved, current creatinine 1.68 #4. Mild plasma lactic acidosis, improved #5. History of COPD, with baseline FEV1 of 34% of predicted #6. Long history of smoking, currently in remission for last 3 weeks, carries [id number] smoking history #7. Pulmonary nodules, abdomen followed by Dr. Nicole, and are stable #8. Significant lower extremity edema with no evidence of DVT #9. History of prostate cancer #10. Restless leg syndrome #11. Chronic deafness Plan: The patient was seen and evaluated by Dr. Plaza Improved today compared to yesterday Computed tomography scan reviewed Remains on Lasix drip Remains on bronchodilators Antibiotics per ID Titrate down the FiO2 as tolerated We'll continue to follow I, the cosigning physician, performed a history & physical examination of the patient. Lungs sounds with basilar crackles, end expiratory wheeze, few scattered rhonchi. Maintaining good O2 saturations in the 90s on 3 L nasal cannula. I discussed the assessment and plan of care with my nurse practitioner, Linh Way. I attest to the above note as dictated by her.
--- NOTE | 2020-05-13 15:09 | P.PN ---
Subjective Progress Note Date: 05/13/20 ( ) History of present illness: This is a 74-year-old male with no prior cardiac history presenting with symptoms of severe progressive dyspnea and found to have a large p ericardial effusion, underwent pericardiocentesis, was found to have bloody effusion. He also had episode of tachycardia probable atrial flutter with a 2-1 conduction. He converted to sinus rhythm. He was started on Lopressor 25 mg twice daily yesterday. He has been on an IV Lasix drip with good urine output. Patient is denying any significant shortness of breath, chest pain pericardial catheter was removed yesterday. Pathology report is pending. He subsequently underwent CAT scan of the chest revealed small to moderate bilateral pleural effusions with compressive atelectasis with coarse in tears to show infiltrates. Previously described nodules are scattered with the exception of a right apical scar or nodule 7 mm. Physical examination: Gen: This is a 74-year-old male. He is resting comfortably in no acute distress VS: Afebrile, heart rate 96, blood pressure 105/56, pulse ox 94% on 3 L nasal cannula. HEENT: Head is atraumatic, normocephalic. Pupils equal, round. Sclerae is anicteric. NECK: Supple. No JVD. No lymphadenopathy. No thyromegaly. LUNGS: Decreased breath sounds to the bases. No wheezes or rhonchi. No intercostal retractions. HEART: Regular rate and rhythm. No murmur. ABDOMEN: Soft. Bowel sounds are present. No masses. No tenderness. EXTREMITIES: 1+ pedal edema. No calf tenderness. NEUROLOGICAL: Patient is awake, alert and oriented x3. Cranial nerves 2 through 12 are grossly intact. Assessment: Large bloody pericardial effusion status post emergent percutaneous pericardial drain insertion, removal Episode of atrial flutter, could be irritation from 2 Acute hypoxic respiratory failure Acute kidney injury History of COPD Tobacco use and dependence Pulmonary nodules History of prostate cancer Plan: Continue Lasix drip at 10 mg per hour Continue Lopressor 25 mg twice daily oral Await pathology report Monitor renal function Further recommendations to follow based upon clinical course Nurse practitioner note has been reviewed, I agree with documented findings and plan of care. Patient was seen and examined. Objective - Vital Signs Vital signs: Vital Signs Temp 98 F 05/13/20 08:00 Pulse 96 05/13/20 11:27 Resp 20 05/13/20 08:00 BP 134/70 05/13/20 08:00 Pulse Ox 91 L 05/13/20 08:00 Intake & Output 05/12/20 05/13/20 05/13/20 18:59 06:59 18:59 Intake Total 1286.00 327.667 360 Output Total 1125 1225 Balance 161.00 -897.333 360 Weight 88.1 kg Intake: IV 20 110 Furosemide 100 mg In 110 Sodium Chloride 0.9% 90 ml @ 10 MG/HR 10 mls/hr IV .Q10H [facility] Rx#: [id number] Invasive Line 2 10 Invasive Line 4 10 Intake, IV Titration 230.00 217.667 Amount Cefepime 2 gm In Sodium 100 Chloride 0.9% 100 ml @ 200 mls/hr IVPB Q12HR [facility] Rx#:[id number] Diltiazem 125 mg In 86 Sodium Chloride 0.9% 100 ml @ 10 MG/HR 10 mls/hr IV .[id number] [facility] Rx#: [id number] Furosemide 100 mg In 144.00 117.667 Sodium Chloride 0.9% 90 ml @ 10 MG/HR 10 mls/hr IV .Q10H [facility] Rx#: [id number] Oral 1036 360 Output: Urine 1125 1225 Other: Voiding Method Diaper Diaper Diaper # Voids 1 1 - Labs CBC & Chem 7: 05/13/20 06:10 05/13/20 06:10 Labs: Abnormal Lab Results - Last 24 Hours (Table) 05/12/20 05/12/20 05/12/20 Range/Units 14:28 16:42 20:55 WBC (3.8-10.6) k/uL RBC (4.30-5.90) m/uL Neutrophils # (1.3-7.7) k/uL Lymphocytes # (1.0-4.8) k/uL Sodium (137-145) mmol/L Chloride (98-107) mmol/L Carbon Dioxide (22-30) mmol/L BUN (9-20) mg/dL Creatinine (0.66-1.25) mg/dL Glucose (74-99) mg/dL POC Glucose (mg/dL) 169 H 179 H (75-99) mg/dL Calcium (8.4-10.2) mg/dL Magnesium 2.4 H (1.6-2.3) mg/dL 05/13/20 05/13/20 05/13/20 Range/Units 02:32 06:10 06:10 WBC 17.7 H (3.8-10.6) k/uL RBC 4.18 L (4.30-5.90) m/uL Neutrophils # 16.4 H (1.3-7.7) k/uL Lymphocytes # 0.3 L (1.0-4.8) k/uL Sodium 134 L (137-145) mmol/L Chloride 93 L (98-107) mmol/L Carbon Dioxide 34 H (22-30) mmol/L BUN 69 H (9-20) mg/dL Creatinine 1.68 H (0.66-1.25) mg/dL Glucose 145 H (74-99) mg/dL POC Glucose (mg/dL) 136 H (75-99) mg/dL Calcium 7.9 L (8.4-10.2) mg/dL Magnesium (1.6-2.3) mg/dL 05/13/20 05/13/20 Range/Units 06:36 11:50 WBC (3.8-10.6) k/uL RBC (4.30-5.90) m/uL Neutrophils # (1.3-7.7) k/uL Lymphocytes # (1.0-4.8) k/uL Sodium (137-145) mmol/L Chloride (98-107) mmol/L Carbon Dioxide (22-30) mmol/L BUN (9-20) mg/dL Creatinine (0.66-1.25) mg/dL Glucose (74-99) mg/dL POC Glucose (mg/dL) 161 H 118 H (75-99) mg/dL Calcium (8.4-10.2) mg/dL Magnesium (1.6-2.3) mg/dL Microbiology - Last 24 Hours (Table) 05/11/20 09:50 Blood Culture - Preliminary Blood No Growth after 48 hours 05/11/20 09:45 Blood Culture - Preliminary Blood No Growth after 48 hours 05/12/20 09:30 Gram Stain - Preliminary Sputum Sputum Culture - Preliminary 05/09/20 22:01 Blood Culture - Preliminary Blood No Growth after 72 hours
--- NOTE | 2020-05-13 15:10 | PN ---
PROGRESS NOTE Patient is seen for followup for acute kidney injury, mainly cardiorenal and improving. The patient is maintained on Lasix drip which was increased to 10 mg an hour yesterday. He has had good urine output. His weight is down by about 2 kg. A 24 hour output was 2.3 L with -700 mL only. The patient states he is feeling better and breathing much easier as well. PHYSICAL EXAMINATION: On examination today, blood pressure is 134/70, heart rate of 100 per minute, he is afebrile. Examination of the heart S1, S2. Examination: Decreased breath sounds at bases. Abdomen is soft, nontender. Examination of lower extremities shows edema 3+ bilaterally. [employer] exam grossly intact. LAB: Show sodium of 134, potassium 3.5, chloride 93, CO2 is 34, BUN 69, creatinine 1.68. ASSESSMENT: 1. Acute kidney injury, cardiorenal, currently improving. The patient is maintained on IV Lasix. Creatinine is down to 1.6 from 2.9 on initial admission. 2. Large pericardial effusion status post pericardiocentesis. Pathology is pending. 3. Lung nodules which have been stable. 4. Cardiomyopathy with ejection fraction 40%-45%. with moderate concentric left ventricular hypertrophy. 5. Hypokalemia secondary to diuretics status post replacement. 6. Lactic acidosis, now resolved. PLAN: Continue with Lasix drip at 10 mg an hour. Monitor electrolytes. Maintain fluid restriction and salt restriction and repeat labs in a.m. MMCHUNGL / ENRIQUEN: [id number] /
[2020-05-13 16:42] LABS: Glucose,Whole Blood 161 mg/dL (75-99)
[2020-05-13] MEDS: SYMBICORT 160-4.5 MCG INHALER INHALATION SCH (19:38)
[2020-05-13] MEDS ORDERED: DILTIAZEM DRIP BOLUS FROM BAG 1 MG SOLN IV ONE (19:44)
[2020-05-13] MEDS: MELATONIN 5 MG TABLET PO SCH (19:56)
[2020-05-13] MEDS: clonazePAM 0.5 MG TAB PO SCH (19:57)
[2020-05-13 20:18] LABS: Glucose,Whole Blood 183 mg/dL (75-99)
[2020-05-13] MEDS: DILTIAZEM 125 MG in SODIUM CHLORIDE 0.9% 100 ML IV SCH (20:53)
--- NOTE | 2020-05-13 23:13 | PN ---
PROGRESS NOTE DATE OF SERVICE: 05/13/2020. REASON FOR FOLLOWUP: Leukocytosis. INTERVAL HISTORY: Patient is currently afebrile. Patient is breathing more comfortably. The patient denies having any chest pain. He did have some cough with occasional sputum. No nausea, no vomiting. No abdominal pain. No diarrhea. PHYSICAL EXAMINATION: Blood pressure 109/73 with a pulse of 73, temperature 98. He is 93% on 3 L nasal cannula. General description is an elderly male up in the chair in no distress. Respiratory system: Unlabored breathing, decreased breath sounds in the base, with no wheeze. Heart S1, S2. Regular rate and rhythm. Abdomen soft, no tenderness. LABS: Hemoglobin is 13, white count 17.7, BUN of 69, creatinine 1.68. Sputum showing gram- negative bacilli. Blood culture so far negative. DIAGNOSTIC IMPRESSION AND PLAN: Patient with leukocytosis which is likely multifactorial in this patient admitted to the hospital with shortness of breath that has been diagnosed with pericardial effusion status post pericardial drain with concern for possible malignant. Cytology is pending. Sputum showing gram-negative. Patient is covered with cefepime to continue while waiting for the culture to finalize. Family at the bedside. Their questions were answered. MMODL / IJN: [id number] /
[2020-05-14] MEDS: SODIUM CHLORIDE 0.9% 1,000 ML IV SCH ×2 (04:30→22:58)
[2020-05-14 06:18] LABS: Glucose,Whole Blood 163 mg/dL (75-99)
[2020-05-14] MEDS: INSULIN ASPART (NovoLOG) 100 UNIT/ML VIAL SQ SCH ×4 (06:59→21:17)
[2020-05-14 07:16] LABS: Basophils % (A) 0 %; Eosinophils % (A) 0 %; HGB 12.6 gm/dL (13.0-17.5); Lymphocytes # (A) 0.4 k/uL (1.0-4.8); Lymphocytes % (A) 3 %; MCHC 33.1 g/dL (31.0-37.0); MCV 99.6 fL (80.0-100.0); Mean Platelet Volume 9.1; Monocytes # (A) 0.7 k/uL (0-1.0); Monocytes % (A) 5 %; Neutrophils # (A) 12.9 k/uL (1.3-7.7); Neutrophils % (A) 92 %; Platelet Count 136 k/uL (150-450); RBC 3.82 m/uL (4.30-5.90); RDW 14.1 % (11.5-15.5); WBC 14.1 k/uL (3.8-10.6)
[2020-05-14 07:38] LABS: Calcium 7.4 mg/dL (8.4-10.2); Magnesium 2.1 mg/dL (1.6-2.3); Potassium 3.3 mmol/L (3.5-5.1)
[2020-05-14] MEDS ORDERED: Potassium Replacement Protocol 1 EACH MISC MISCELLANE PRN (07:57)
[2020-05-14] MEDS: SYMBICORT 160-4.5 MCG INHALER INHALATION SCH ×2 (08:29→19:18)
[2020-05-14] MEDS: IPRATROPIUM-ALBUTEROL 3 ML NEB INHALATION SCH ×4 (08:29→19:18)
[2020-05-14] MEDS: DOCUSATE 100 MG CAP PO SCH ×2 (08:43→21:15)
[2020-05-14] MEDS: methylPREDNISolone SOD SUCCI 40 MG/ML 1 ML VIAL IV SCH ×3 (08:43→22:56)
[2020-05-14] MEDS: CEFEPIME 2 GM in SODIUM CHLORIDE 0.9% 100 ML IVPB SCH ×2 (08:43→21:18)
[2020-05-14] MEDS: SENNOSIDES-DOCUSATE SODIUM 1 EACH TAB PO SCH ×2 (08:44→21:15)
[2020-05-14] MEDS: METOPROLOL TARTRATE 25 MG TAB PO SCH ×3 (08:44→21:15)
[2020-05-14] MEDS: POTASSIUM CHLORIDE ER 20 MEQ TAB.ER PO SCH ×4 (08:44→22:56)
[2020-05-14] MEDS: PANTOPRAZOLE 40 MG TABLET PO SCH (08:44)
[2020-05-14] MEDS: FUROSEMIDE 100 MG in SODIUM CHLORIDE 0.9% 90 ML IV SCH (08:46)
--- NOTE | 2020-05-14 09:06 | P.PN ---
Subjective Progress Note Date: 05/14/20 Principal diagnosis: Shortness of breath 05/09/2020 74-year-old male patient presented emergency room ambulatory chief complaint of shortness of breath. In ER chest x-ray showed small pleural effusions are essentially new compared to all exam no gross heart failure. He has had a long-standing history of COPD, and noted history of smoking. He quit approximately 3 weeks ago at the onset of current symptoms. He was seen in emergency room for similar complaint earlier in the month and he has been seen in the office twice once for ER follow-up and the other for recheck. From the office he was started on 80 mg of Lasix as well as clarithromycin. With taking medications he stated there was no improvement in his symptoms and his fatigue worsened. He was also ordered a rescue inhaler but had minimal improvement with its use. He denied chest pain, unilateral numbness or weakness, orthopnea. Continue to have bilateral lower extremity peripheral edema. He has no history of hypertension, DVT or PE, denies history of heart failure, does not utilized home O2, denies fever or chills. He he denied cough and arrival in ER. Past medical history of cancer, COPD, heart appearing as related to being in the , prostate disorder, every day smoker up until current sickness. Is also noted to have a right hip. Echocardiogram this morning showed ejection fraction 40-45% with very mild left ventricular hypokinesis. Is also noted to have large global pericardial effusion without tamponade. Appears cardiology was on hand at time of echo and consulted cardiothoracic for evaluation. Dr. Jimenez saw patient in room and performed a percutaneous pericardial drainage with echo guidance in which he 850 ml of bloody pericardial fluid was drained and sent for cytology, LDH, protein, glucose. Venous Doppler duplex lower summary bilaterally was completed today impression showed early to moderate diffuse subcutaneous edema greatest towards the periphery bilaterally without acute DVT in either extremity. Current labs WBC of 19.3, hemoglobin 13.8, hematocrit 42.1, platelet count 214, neutrophils 16.1, monocytes 1.4, PT of 12.8, INR 1.3, d-dimer 1.95. Chemistry revealed a sodium 131, potassium 4.0, chloride 92, bun 97, creatinine of 2.99, lactic acid initially was 3.0 and resuscitated down to 1.9. AST 120, Whitney T O'Leonid for, initial troponin 0.0-6, which elevated later to 0.083. Most recent chart of vitals afebrile 98.2, pulse rate of 92 normal sinus rhythm, respiratory rate of 22, blood pressure 120/72, oxygen saturation 96% on 2 L nasal cannula. 05/13/2020 patient sitting up in bed, resting comfortably at this time, with no complaints. Currently on a Lasix for diuresis, fluid balance for the past 24 hours and -743 mL. Weight is down 2.5 kg from yesterday. Lung sounds with mild scattered rhonchi throughout. Continues on 3 L nasal cannula to me oxygen saturations in the mid 90s. Blood pressure and heart rate remained stable throughout the night with no known episode of A. fib/flutter. Pericardial cytology is pending. WBC count 17.7 down from 25.4. IV antibiotics of cefepime and daptomycin. Pericardial drain was removed yesterday,current dressing is dry and intact the follow-up echocardiogram showed pericardial effusion is trivial. Renal function is improving with a creatinine 1.68. Patient has not had a bowel movement in 4 days, stool softeners have been implemented excellent 05/14/2020 patient sitting up in bed resting comfortably at this time. He has no complaints other than wanting to know the results of his cytology report. Currently on Lasix drip for diuresis, maintain close to an even fluid balance for the 24 hours. Continues on a Cardizem drip which is her rate dropped into the 40s last night was reduced from 10 down to 5 mg an hour. He is also having periods of atrial fib intermittently with normal sinus rhythm. Labs revealed a CO2 last night of 42 and was having snores respirations to the night. His made statement that he is normally like that at home and has had sleep study which did not reveal sleep apnea. Current CBC from today white count of 14.1, hemoglobin 12.6, hematocrit 38, platelet count 136. Most recent chart vitals were at 4:00 this morning temperature is 98.0 oral pulse rate of 84 pressure of 18, pressure 118/62 oxygen saturation is 92% on 2 L nasal cannula. Objective - Vital Signs Vital signs: Vital Signs Temp 98.0 F 05/14/20 04:00 Pulse 96 05/14/20 08:40 Resp 20 05/14/20 04:00 BP 118/62 05/14/20 04:00 Pulse Ox 92 L 05/14/20 04:00 Intake & Output 05/13/20 05/14/20 05/14/20 18:59 06:59 18:59 Intake Total 1249 373.167 340 Output Total 350 1250 Balance 899 -876.833 340 Weight 90.5 kg Intake: IV 30 Furosemide 100 mg In 30 Sodium Chloride 0.9% 90 ml @ 10 MG/HR 10 mls/hr IV .Q10H [facility] Rx#: [id number] Intake, IV Titration 409 103.167 100 Amount Cefepime 2 gm In Sodium 100 Chloride 0.9% 100 ml @ 200 mls/hr IVPB Q12HR [facility] Rx#:[id number] DAPTOmycin 550 mg In 50 Sodium Chloride 0.9% 50 ml @ 100 mls/hr IVPB Q24HR [facility] Rx#:[id number] Diltiazem 125 mg In 20 Sodium Chloride 0.9% 100 ml @ 5 MG/HR 5 mls/hr IV .Q24H [facility] Rx#:[id number] Furosemide 100 mg In 99 63.167 100 Sodium Chloride 0.9% 90 ml @ 10 MG/HR 10 mls/hr IV .Q10H [facility] Rx#: [id number] Sodium Chloride 0.9% 1, 160 20 000 ml @ 20 mls/hr IV . Q24H [facility] Rx#:[id number] Oral 840 240 240 Output: Urine 350 1250 Other: Voiding Method Diaper Diaper # Voids 1 1 # Bowel Movements 0 1 - Exam GENERAL: Well-appearing, well-nourished and in no acute distress. HEAD: Atraumatic, normocephalic. EYES: Pupils equal round and reactive to light, extraocular movements intact, sclera anicteric, conjunctiva are normal. ENT:nares patent, oropharynx clear without exudates. Moist mucous membranes. NECK: Normal range of motion, supple without lymphadenopathy or JVD, no thyromegaly LUNGS: Breath sounds with scattered rhonchi, No wheezes or rales. HEART: Regular rate and rhythm without murmurs, rubs or gallops.S1S2 Normal ABDOMEN: Firm, nontender, normoactive bowel sounds. No guarding, no rebound. No masses appreciated. EXTREMITIES: Normal range of motion, +2-3 pitting edema to bilateral lower extremities. Pulses intact No clubbing or cyanosis. NEUROLOGICAL: Cranial nerves II through XII grossly intact. Normal speech, normal gait. PSYCH: Normal mood, normal affect. SKIN: Warm, Dry, normal turgor, no rashes or lesions noted. - Labs CBC & Chem 7: 05/14/20 06:54 05/14/20 06:54 Labs: Abnormal Lab Results - Last 24 Hours (Table) 05/13/20 05/13/20 05/13/20 Range/Units 11:50 16:40 20:17 WBC (3.8-10.6) k/uL RBC (4.30-5.90) m/uL Hgb (13.0-17.5) gm/dL Hct (39.0-53.0) % Plt Count (150-450) k/uL Neutrophils # (1.3-7.7) k/uL Lymphocytes # (1.0-4.8) k/uL Sodium (137-145) mmol/L Potassium (3.5-5.1) mmol/L Chloride (98-107) mmol/L Carbon Dioxide (22-30) mmol/L BUN (9-20) mg/dL Creatinine (0.66-1.25) mg/dL Glucose (74-99) mg/dL POC Glucose (mg/dL) 118 H 161 H 183 H (75-99) mg/dL Calcium (8.4-10.2) mg/dL 05/14/20 05/14/20 05/14/20 Range/Units 06:16 06:54 06:54 WBC 14.1 H (3.8-10.6) k/uL RBC 3.82 L (4.30-5.90) m/uL Hgb 12.6 L (13.0-17.5) gm/dL Hct 38.0 L (39.0-53.0) % Plt Count 136 L (150-450) k/uL Neutrophils # 12.9 H (1.3-7.7) k/uL Lymphocytes # 0.4 L (1.0-4.8) k/uL Sodium 134 L (137-145) mmol/L Potassium 3.3 L (3.5-5.1) mmol/L Chloride 91 L (98-107) mmol/L Carbon Dioxide 42 H* (22-30) mmol/L BUN 63 H (9-20) mg/dL Creatinine 1.68 H (0.66-1.25) mg/dL Glucose 146 H (74-99) mg/dL POC Glucose (mg/dL) 163 H (75-99) mg/dL Calcium 7.4 L (8.4-10.2) mg/dL Microbiology - Last 24 Hours (Table) 05/09/20 22:01 Blood Culture - Preliminary Blood No Growth after 96 hours 05/12/20 09:30 Gram Stain - Preliminary Sputum Sputum Culture - Preliminary Gram Neg Bacilli 05/11/20 09:50 Blood Culture - Preliminary Blood No Growth after 48 hours 05/11/20 09:45 Blood Culture - Preliminary Blood No Growth after 48 hours Assessment and Plan (1) Pericardial effusion without cardiac tamponade Current Visit: Yes Status: Acute Code(s): I31.3 - PERICARDIAL EFFUSION (NONINFLAMMATORY) SNOMED Code(s): 212577102 (2) Acute kidney injury Current Visit: Yes Status: Acute Code(s): N17.9 - ACUTE KIDNEY FAILURE, UNSPECIFIED SNOMED Code(s): 40850916 (3) COPD exacerbation Current Visit: Yes Status: Acute Code(s): J44.1 - CHRONIC OBSTRUCTIVE PULMONARY DISEASE W (ACUTE) EXACERBATION SNOMED Code(s): 144426360 (4) Pneumonia Current Visit: No Status: Acute Code(s): J18.9 - PNEUMONIA, UNSPECIFIED ORGANISM SNOMED Code(s): 754915861 (5) Shortness of breath Current Visit: Yes Status: Acute Code(s): R06.02 - SHORTNESS OF BREATH SNOMED Code(s): 069512867 (6) Edema, peripheral Current Visit: Yes Status: Acute Code(s): R60.9 - EDEMA, UNSPECIFIED SNOMED Code(s): 490239754 (7) Constipation Current Visit: Yes Status: Acute Code(s): K59.00 - CONSTIPATION, UNSPECIFIED SNOMED Code(s): 79071838 Plan: 1. Continue current medication regimen. 2. Monitor and treat symptomatically. 3. Continue with bowel regimen until success. 4. We'll continue utilizing incentive spirometry at least 10 times an hour while awake. 5. Aggressive pulmonary toileting. 6. Will await cytology results for pericardial fluid. 7. Continue IV Lasix for diuresis as per nephrology. 8. Antibiotics as per infectious disease. 9. Electrolyte supplements as per protocol. 10. We'll order labs for CBC with differential and a basic metabolic panel for tomorrow. 11. Continue Cardizem drip and follow cardiology recommendations 12. We will continue to follow closely and reassess tomorrow. Time with Patient: Greater than 30
[2020-05-14] MEDS: DILTIAZEM 125 MG in SODIUM CHLORIDE 0.9% 100 ML IV SCH (09:57)
[2020-05-14] MEDS: acetaZOLAMIDE 250 MG TAB PO SCH ×2 (10:04→21:15)
[2020-05-14 11:54] LABS: Glucose,Whole Blood 178 mg/dL (75-99)
--- NOTE | 2020-05-14 12:28 | PN ---
PROGRESS NOTE Patient is seen for followup for acute kidney injury, mainly cardiorenal. He was admitted with shortness of breath and volume overload and was found to have a large pericardial effusion. The patient has had pericardiocentesis. He also has an ejection fraction of 40-45% and is currently maintained on Lasix drip. He has diuresed well and is feeling much better. His weight is down by about 2 kg. A 24 hour urine output was 1.6 L which is slightly lower than yesterday. The patient also has scrotal swelling, however, according to his it is slightly better today. He did go into atrial fibrillation with RVR yesterday. EXAMINATION: Today patient is comfortable. Blood pressure 118/62, heart rate is now it 88 per minute, he is afebrile. Examination of the heart S1, S2. Examination of the lungs, good air entry bilaterally. Abdomen is soft, nontender. Examination of lower extremities shows edema 2+ bilaterally. NOC ENGINEER exam grossly intact. LAB: Show sodium 134, potassium 3.3, chloride 91, CO2 is 42, BUN 63, creatinine 1.68, hemoglobin 12.6 g/dL. ASSESSMENT: 1. Acute kidney injury, mainly cardiorenal. Renal function was improving with the Lasix drip. However, creatinine is about the same as yesterday given his new onset of atrial fibrillation with rapid ventricular response. I will discontinue the Lasix drip and switch to IV Lasix q.8 hours and if he does not diurese well, we can go back on the Lasix drip or add Zaroxolyn. 2. Metabolic alkalosis secondary to diuresis, started on Diamox. 3. Hypokalemia secondary to diuretics, we will replace, magnesium was not low. 4. Pericardial effusion status post pericardiocentesis. Serologies are negative and pathology is pending as patient does have a history of pulmonary nodules. 5. Cardiomyopathy, ejection fraction 40-45%. PLAN: 1. Switch to IV push Lasix. Monitor urine output and 24 hour volume status. If the patient is not diuresing well, we can add Zaroxolyn or increase the dose of Lasix. 2. Replace potassium. 3. Add Diamox and repeat labs in a.m. 4. Continue to avoid nephrotoxic agents. 5. Patient is advised regarding salt and fluid restriction. MMODL / IJN: [id number] /
--- NOTE | 2020-05-14 13:13 | P.PN ---
Subjective Progress Note Date: 05/14/20 History of present illness: This is a 74-year-old male with no prior cardiac history presenting with symptoms of severe progressive dyspnea and found to have a large peric ardial effusion, underwent pericardiocentesis, was found to have bloody effusion. He also had episode of tachycardia probable atrial flutter with a 2-1 conduction. He converted to sinus rhythm. He was started on Lopressor 25 mg twice daily yesterday. He has been on an IV Lasix drip with good urine output. Patient is denying any significant shortness of breath, chest pain pericardial catheter was removed yesterday. Pathology report is pending. He subsequently underwent CAT scan of the chest revealed small to moderate bilateral pleural effusions with compressive atelectasis with coarse in tears to show infiltrates. Previously described nodules are scattered with the exception of a right apical scar or nodule 7 mm. 05/14: Pathology report from pericardial fluid remains pending. Patient had a drop in his heart rate into the 40s yesterday and Cardizem drip was held was subsequently resumed, currently at 5 mg per hour. His heart rate is running in the 70s to 90s in a sinus rhythm. Cardizem drip will be discontinued and Lopressor increased frequency to [address] Edwards has added Diamox and transition Lasix drip to Lasix 40 mg IV every 8 hours. Repeat blood work reveal s WBC 14.1, hemoglobin 12.6, platelet count 136. Sodium 134, potassium 3.3 and has been replaced, chloride 91, CO2 42, BUN 63 and creatinine 1.68. Physical examination: Gen: This is a 74-year-old male. He is resting comfortably in no acute distress VS: Afebrile, heart rate 71, blood pressure 110/58, pulse ox 94% on 3 L nasal cannula. HEENT: Head is atraumatic, normocephalic. Pupils equal, round. Sclerae is anicteric. NECK: Supple. No JVD. No lymphadenopathy. No thyromegaly. LUNGS: Decreased breath sounds to the bases. No wheezes or rhonchi. No intercostal retractions. HEART: Regular rate and rhythm. No murmur. ABDOMEN: Soft. Bowel sounds are present. No masses. No tenderness. EXTREMITIES: 1+ pedal edema. No calf tenderness. NEUROLOGICAL: Patient is awake, alert and oriented x3. Cranial nerves 2 through 12 are grossly intact. Assessment: Large bloody pericardial effusion status post emergent percutaneous pericardial drain insertion, removal Episode of atrial flutter, could be irritation from tube Acute hypoxic respiratory failure Acute kidney injury History of COPD Tobacco use and dependence Pulmonary nodules History of prostate cancer Plan: Continue Lasix transition from drip to 40 mg IV every 8 hours, monitor I&O and daily weights Discontinue Cardizem drip Continue Lopressor frequency to 25 mg 3 times daily Await cytology report on pericardial fluid Monitor renal function Further recommendations to follow based upon clinical course Nurse practitioner note has been reviewed, I agree with documented findings and plan of care. Patient was seen and examined. Objective - Vital Signs Vital signs: Vital Signs Temp 98.0 F 05/14/20 04:00 Pulse 96 05/14/20 08:40 Resp 20 05/14/20 04:00 BP 118/62 05/14/20 04:00 Pulse Ox 92 L 05/14/20 04:00 Intake & Output 05/13/20 05/14/20 05/14/20 18:59 06:59 18:59 Intake Total 1249 373.167 465 Output Total 350 1250 Balance 899 -876.833 465 Weight 90.5 kg Intake: IV 30 Furosemide 100 mg In 30 Sodium Chloride 0.9% 90 ml @ 10 MG/HR 10 mls/hr IV .Q10H [facility] Rx#: [id number] Intake, IV Titration 409 103.167 225 Amount Cefepime 2 gm In Sodium 100 Chloride 0.9% 100 ml @ 200 mls/hr IVPB Q12HR [facility] Rx#:[id number] DAPTOmycin 550 mg In 50 Sodium Chloride 0.9% 50 ml @ 100 mls/hr IVPB Q24HR [facility] Rx#:[id number] Diltiazem 125 mg In 20 125 Sodium Chloride 0.9% 100 ml @ 5 MG/HR 5 mls/hr IV .Q24H [facility] Rx#:[id number] Furosemide 100 mg In 99 63.167 100 Sodium Chloride 0.9% 90 ml @ 10 MG/HR 10 mls/hr IV .Q10H [facility] Rx#: [id number] Sodium Chloride 0.9% 1, 160 20 000 ml @ 20 mls/hr IV . Q24H [facility] Rx#:[id number] Oral 840 240 240 Output: Urine 350 1250 Other: Voiding Method Diaper Diaper # Voids 1 1 # Bowel Movements 0 1 - Labs CBC & Chem 7: 05/14/20 06:54 05/14/20 06:54 Labs: Abnormal Lab Results - Last 24 Hours (Table) 05/13/20 05/13/20 05/13/20 Range/Units 11:50 16:40 20:17 WBC (3.8-10.6) k/uL RBC (4.30-5.90) m/uL Hgb (13.0-17.5) gm/dL Hct (39.0-53.0) % Plt Count (150-450) k/uL Neutrophils # (1.3-7.7) k/uL Lymphocytes # (1.0-4.8) k/uL Sodium (137-145) mmol/L Potassium (3.5-5.1) mmol/L Chloride (98-107) mmol/L Carbon Dioxide (22-30) mmol/L BUN (9-20) mg/dL Creatinine (0.66-1.25) mg/dL Glucose (74-99) mg/dL POC Glucose (mg/dL) 118 H 161 H 183 H (75-99) mg/dL Calcium (8.4-10.2) mg/dL 05/14/20 05/14/20 05/14/20 Range/Units 06:16 06:54 06:54 WBC 14.1 H (3.8-10.6) k/uL RBC 3.82 L (4.30-5.90) m/uL Hgb 12.6 L (13.0-17.5) gm/dL Hct 38.0 L (39.0-53.0) % Plt Count 136 L (150-450) k/uL Neutrophils # 12.9 H (1.3-7.7) k/uL Lymphocytes # 0.4 L (1.0-4.8) k/uL Sodium 134 L (137-145) mmol/L Potassium 3.3 L (3.5-5.1) mmol/L Chloride 91 L (98-107) mmol/L Carbon Dioxide 42 H* (22-30) mmol/L BUN 63 H (9-20) mg/dL Creatinine 1.68 H (0.66-1.25) mg/dL Glucose 146 H (74-99) mg/dL POC Glucose (mg/dL) 163 H (75-99) mg/dL Calcium 7.4 L (8.4-10.2) mg/dL Microbiology - Last 24 Hours (Table) 05/09/20 22:01 Blood Culture - Preliminary Blood No Growth after 96 hours 05/12/20 09:30 Gram Stain - Preliminary Sputum Sputum Culture - Preliminary Gram Neg Bacilli 05/11/20 09:50 Blood Culture - Preliminary Blood No Growth after 48 hours 05/11/20 09:45 Blood Culture - Preliminary Blood No Growth after 48 hours
--- NOTE | 2020-05-14 14:08 | P.PN ---
Subjective Progress Note Date: 05/14/20 Principal diagnosis: Large pericardial effusion with early tamponade The patient is seen today 05/12/2020 in follow-up on the selective care unit. He is currently resting fairly comfortably in bed. Awake and alert in no acute distress. He does have a worsening congested cough. Some shortness of breath. Currently on 5 L high flow nasal cannula to maintain O2 saturations in the 90s. He is afebrile. Hemodynamically stable. Blood cultures reveal no growth. Paracardial fluid cytology pending. Fluid analysis revealed significant bloody fluid with high WBCs. Exudative in nature with high-protein high LDH. White count 25.4. Hemoglobin 13.0. Sodium 135. Potassium 3.4. Creatinine 1.87. MAXWELL, p-ANCA, c-ANCA, DNA antibodies all negative. Infectious diseases been c onsulted. Follow up echocardiogram reveals trivial pericardial effusion. Plan is for possible catheter removal today. Minimal output. The patient is seen today 05/13/2020 in follow-up on the selective care unit. He is currently resting quite comfortable in bed. Awake and alert in no acute distress. Breathing a little easier today compared to yesterday. Maintaining O2 saturations in the low 90s on 3 L/m per nasal cannula. He's been afebrile. Hemodynamically stable. Pericardial catheter was removed yesterday. Pathology pending. Computed tomography scan of the chest reveals small to moderate bilateral pleural effusions with compressive atelectasis with coarse interstitial infiltrates. Previously described nodules are scattered with the exception of right apical scar or nodule 7 mm. Being followed in the outpatient setting. Blood culture reveals no growth to date. Sputum culture pending. White count 17.7. Hemoglobin 13.0. Sodium 134. Potassium 3.5. Creatinine 1.68. He remains on Symbicort, bronchodilators, IV Solu-Medrol. Antibiotics in the form of daptomycin and cefepime. He remains on a Lasix drip at 10 mg an hour. The patient is seen today 05/14/2020 in follow-up on the selective care unit. He is awake and alert in no acute distress. Breathing easier today compared to yesterday. Less congested. Maintaining O2 saturations in the 90s on 3 L/m per nasal cannula. Afebrile. Hemodynamically stable. Cytology from pericardial fluid is pending. Blood cultures reveal no growth. Sputum culture with gram- negative bacilli. White count 14.1. Hemoglobin 12.6. Platelets 136,000. Sodium 134. Potassium 3.3. Bicarb 42. Creatinine 1.68. He remains on Symbicort, DuoNeb inhalations, IV Solu-Medrol. He is currently on cefepime and daptomycin. ID is on the case. Objective - Vital Signs Vital signs: Vital Signs Temp 97.5 F L 05/14/20 08:40 Pulse 92 05/14/20 11:33 Resp 18 05/14/20 08:40 BP 110/58 05/14/20 08:40 Pulse Ox 94 L 05/14/20 08:40 Intake & Output 05/13/20 05/14/20 05/14/20 18:59 06:59 18:59 Intake Total 1249 373.167 465 Output Total 350 1250 Balance 899 -876.833 465 Weight 90.5 kg Intake: IV 30 Furosemide 100 mg In 30 Sodium Chloride 0.9% 90 ml @ 10 MG/HR 10 mls/hr IV .Q10H [facility] Rx#: [id number] Intake, IV Titration 409 103.167 225 Amount Cefepime 2 gm In Sodium 100 Chloride 0.9% 100 ml @ 200 mls/hr IVPB Q12HR [facility] Rx#:[id number] DAPTOmycin 550 mg In 50 Sodium Chloride 0.9% 50 ml @ 100 mls/hr IVPB Q24HR [facility] Rx#:[id number] Diltiazem 125 mg In 20 125 Sodium Chloride 0.9% 100 ml @ 5 MG/HR 5 mls/hr IV .Q24H [facility] Rx#:[id number] Furosemide 100 mg In 99 63.167 100 Sodium Chloride 0.9% 90 ml @ 10 MG/HR 10 mls/hr IV .Q10H [facility] Rx#: [id number] Sodium Chloride 0.9% 1, 160 20 000 ml @ 20 mls/hr IV . Q24H [facility] Rx#:[id number] Oral 840 240 240 Output: Urine 350 1250 Other: Voiding Method Diaper Diaper Diaper # Voids 1 1 # Bowel Movements 0 1 - Exam GENERAL EXAM: Alert, very pleasant, 74-year-old gentleman, on 3 L of oxygen with a pulse ox of 94%, comfortable in no apparent distress. HEAD: Normocephalic/atraumatic. EYES: Normal reaction of pupils, equal size. Conjunctiva pink, sclera white. NOSE: Clear with pink turbinates. THROAT: No erythema or exudates. NECK: No masses, no JVD, no thyroid enlargement, no adenopathy. CHEST: No chest wall deformity. Symmetrical expansion. Anterior left chest triple-lumen catheter removed. LUNGS: Equal air entry with few scattered rhonchi, basilar crackles. CVS: Regular rate and rhythm, normal S1 and S2, no gallops, no murmurs, no rubs ABDOMEN: Soft, nontender. No hepatosplenomegaly, normal bowel sounds, no guarding or rigidity. EXTREMITIES: No clubbing, no edema, no cyanosis, 2+ pulses and upper and lower extremities. MUSCULOSKELETAL: Muscle strength and tone normal. SPINE: No scoliosis or deformity SKIN: No rashes CENTRAL NERVOUS SYSTEM: No focal deficits, tone is normal in all 4 extremities. PSYCHIATRIC: Alert and oriented -3. Appropriate affect. Intact judgment and insight. - Labs CBC & Chem 7: 05/14/20 06:54 05/14/20 06:54 Labs: Abnormal Lab Results - Last 24 Hours (Table) 05/13/20 05/13/20 05/14/20 Range/Units 16:40 20:17 06:16 WBC (3.8-10.6) k/uL RBC (4.30-5.90) m/uL Hgb (13.0-17.5) gm/dL Hct (39.0-53.0) % Plt Count (150-450) k/uL Neutrophils # (1.3-7.7) k/uL Lymphocytes # (1.0-4.8) k/uL Sodium (137-145) mmol/L Potassium (3.5-5.1) mmol/L Chloride (98-107) mmol/L Carbon Dioxide (22-30) mmol/L BUN (9-20) mg/dL Creatinine (0.66-1.25) mg/dL Glucose (74-99) mg/dL POC Glucose (mg/dL) 161 H 183 H 163 H (75-99) mg/dL Calcium (8.4-10.2) mg/dL 05/14/20 05/14/20 05/14/20 Range/Units 06:54 06:54 11:53 WBC 14.1 H (3.8-10.6) k/uL RBC 3.82 L (4.30-5.90) m/uL Hgb 12.6 L (13.0-17.5) gm/dL Hct 38.0 L (39.0-53.0) % Plt Count 136 L (150-450) k/uL Neutrophils # 12.9 H (1.3-7.7) k/uL Lymphocytes # 0.4 L (1.0-4.8) k/uL Sodium 134 L (137-145) mmol/L Potassium 3.3 L (3.5-5.1) mmol/L Chloride 91 L (98-107) mmol/L Carbon Dioxide 42 H* (22-30) mmol/L BUN 63 H (9-20) mg/dL Creatinine 1.68 H (0.66-1.25) mg/dL Glucose 146 H (74-99) mg/dL POC Glucose (mg/dL) 178 H (75-99) mg/dL Calcium 7.4 L (8.4-10.2) mg/dL Microbiology - Last 24 Hours (Table) 05/11/20 09:45 Blood Culture - Preliminary Blood No Growth after 72 hours 05/11/20 09:50 Blood Culture - Preliminary Blood No Growth after 72 hours 05/09/20 22:01 Blood Culture - Preliminary Blood No Growth after 96 hours 05/12/20 09:30 Gram Stain - Preliminary Sputum Sputum Culture - Preliminary Gram Neg Bacilli Assessment and Plan Assessment: #1. Large pericardial effusion with early tamponade, status post emergent percutaneous pericardial drain insertion under echo guidance, postop day 1, with immediate removal of 850 ML of bloody pericardial fluid which was sent for analysis, cultures and cytology are pending. Follow-up echocardiogram reveals trivial remaining effusion. #2. Acute hypoxic respiratory failure secondary to bilateral pleural effusions and compressive atelectasis. Sputum positive for gram-negative bacilli. #3. Acute kidney injury, improved, current creatinine 1.68 #4. Mild plasma lactic acidosis, improved #5. History of COPD, with baseline FEV1 of 34% of predicted #6. Long history of smoking, currently in remission for last 3 weeks, carries [id number] smoking history #7. Pulmonary nodules, abdomen followed by Dr. Nicole, and are stable #8. Significant lower extremity edema with no evidence of DVT #9. History of prostate cancer #10. Restless leg syndrome #11. Chronic deafness Plan: The patient was seen and evaluated by Dr. Plaza Improved today compared to yesterday Continue pulmonary medications Continue diuretics Gram-negative bacilli in the sputum Antibiotics per ID Titrate down the FiO2 as tolerated We'll continue to follow I, the cosigning physician, performed a history & physical examination of the patient. Lungs sounds with basilar crackles, few scattered rhonchi. Maintaining good O2 saturations in the 90s on 3 L nasal cannula. I discussed the assessment and plan of care with my nurse practitioner, Linh Way. I attest to the above note as dictated by her.
[2020-05-14] MEDS: FUROSEMIDE 10 MG/ML 4 ML VIAL IV SCH ×2 (16:20→22:56)
[2020-05-14 16:38] LABS: Glucose,Whole Blood 148 mg/dL (75-99)
[2020-05-14] MEDS: NYSTATIN 100,000 UNIT/ML SUSP 500,000 UNIT/5 ML CUP PO SCH ×2 (18:05→21:18)
--- NOTE | 2020-05-14 20:08 | PN ---
PROGRESS NOTE DATE OF SERVICE: 05/14/2020 REASON FOR FOLLOWUP: Leukocytosis and question of pneumonia. INTERVAL HISTORY: Patient is currently afebrile, has been breathing more comfortably. The patient denies having any chest pain. Some cough with occasional sputum. No nausea, vomiting. No abdominal pain. No diarrhea. PHYSICAL EXAMINATION: Blood pressure is 109/156, pulse of 76, temperature 98.2. He is 90% on 3 L nasal cannula. General description is an elderly male lying in bed in no distress. Respiratory system: Unlabored breathing. Clear to auscultation anteriorly. Heart S1, S2. Regular rate and rhythm. Abdomen soft, no tenderness. LABS: Hemoglobin 12.8, white count 14.1. Blood culture has been negative. Sputum with Pseudomonas aeruginosa. DIAGNOSTIC IMPRESSION AND PLAN: Patient with leukocytosis, multifactorial in this patient admitted to the hospital with large pericardial effusion status post pericardial drain placement, cultures for cytology still pending. White count showing a downward trend on cefepime, to continue. Daptomycin will be discontinued. Finish short course of oral antibiotic on discharge. Continue supportive care. 1. The patient is complaining of soreness in the mouth likely oropharyngeal candidiasis will add nystatin swish and swallow thank condition. MMODL / IJN: [id number] /
[2020-05-14 20:42] LABS: Glucose,Whole Blood 218 mg/dL (75-99)
[2020-05-14] MEDS: MELATONIN 5 MG TABLET PO SCH (21:16)
[2020-05-14] MEDS: clonazePAM 0.5 MG TAB PO SCH (21:16)
[2020-05-15 06:06] LABS: Glucose,Whole Blood 145 mg/dL (75-99)
[2020-05-15] MEDS: INSULIN ASPART (NovoLOG) 100 UNIT/ML VIAL SQ SCH ×4 (06:33→20:34)
[2020-05-15 06:36] LABS: Basophils % (A) 0 %; Eosinophils % (A) 0 %; HCT 38.4 % (39.0-53.0); HGB 12.4 gm/dL (13.0-17.5); Hypochromasia Slight; Lymphocytes # (A) 0.4 k/uL (1.0-4.8); Lymphocytes % (A) 2 %; MCH 32.9 pg (25.0-35.0); MCHC 32.4 g/dL (31.0-37.0); MCV 101.5 fL (80.0-100.0); Macrocytosis Slight; Mean Platelet Volume 8.7; Monocytes # (A) 0.6 k/uL (0-1.0); Monocytes % (A) 4 %; Neutrophils # (A) 13.7 k/uL (1.3-7.7); Neutrophils % (A) 93 %; Platelet Count 129 k/uL (150-450); RBC 3.78 m/uL (4.30-5.90); RDW 13.9 % (11.5-15.5); WBC 14.8 k/uL (3.8-10.6)
[2020-05-15 06:47] LABS: Albumin 2.3 g/dL (3.5-5.0); Calcium 7.5 mg/dL (8.4-10.2); Potassium 3.7 mmol/L (3.5-5.1); Total Bilirubin 0.7 mg/dL (0.2-1.3); Total Protein 4.5 g/dL (6.3-8.2)
[2020-05-15] MEDS: DOCUSATE 100 MG CAP PO SCH ×2 (09:00→20:35)
[2020-05-15] MEDS: acetaZOLAMIDE 250 MG TAB PO SCH ×2 (09:00→20:33)
[2020-05-15] MEDS: METOPROLOL TARTRATE 25 MG TAB PO SCH ×3 (09:01→20:33)
[2020-05-15] MEDS: CEFEPIME 2 GM in SODIUM CHLORIDE 0.9% 100 ML IVPB SCH ×2 (09:01→20:35)
[2020-05-15] MEDS: methylPREDNISolone SOD SUCCI 40 MG/ML 1 ML VIAL IV SCH ×3 (09:01→23:01)
[2020-05-15] MEDS: FUROSEMIDE 10 MG/ML 4 ML VIAL IV SCH ×3 (09:01→23:01)
[2020-05-15] MEDS: PANTOPRAZOLE 40 MG TABLET PO SCH (09:03)
[2020-05-15] MEDS: SENNOSIDES-DOCUSATE SODIUM 1 EACH TAB PO SCH ×2 (09:03→20:35)
[2020-05-15] MEDS: NYSTATIN 100,000 UNIT/ML SUSP 500,000 UNIT/5 ML CUP PO SCH ×4 (09:03→20:33)
[2020-05-15] MEDS: SYMBICORT 160-4.5 MCG INHALER INHALATION SCH ×2 (09:08→20:45)
[2020-05-15] MEDS: IPRATROPIUM-ALBUTEROL 3 ML NEB INHALATION SCH ×4 (09:08→20:45)
[2020-05-15 12:00] LABS: Glucose,Whole Blood 140 mg/dL (75-99)
--- NOTE | 2020-05-15 12:27 | P.PN ---
Subjective Patient is seen in follow-up for acute kidney injury. Renal function is stable. Currently maintained on IV Lasix 40 mg every 8 hours. Edema improving. Oral intake fair. No chest pain or shortness of breath. Vital signs are stable. General: The patient appeared well nourished and normally developed. HEENT: Head exam is unremarkable. Neck is without jugular venous distension. LUNGS: Breath sounds decreased. HEART: Rate and Rhythm are regular. ABDOMEN: Soft, nontender. EXTREMITITES: 2+ edema. Objective - Vital Signs Vital signs: Vital Signs Temp 97.4 F L 05/15/20 08:00 Pulse 92 05/15/20 09:21 Resp 18 05/15/20 08:00 BP 119/59 05/15/20 08:00 Pulse Ox 93 L 05/15/20 08:00 Intake & Output 05/14/20 05/15/20 05/15/20 18:59 06:59 18:59 Intake Total 1085 340 240 Output Total 500 2000 Balance 585 -1660 240 Weight 89.9 kg Intake: Intake, IV Titration 225 100 Amount Cefepime 2 gm In Sodium 100 Chloride 0.9% 100 ml @ 200 mls/hr IVPB Q12HR [facility] Rx#:[id number] Diltiazem 125 mg In 125 Sodium Chloride 0.9% 100 ml @ 5 MG/HR 5 mls/hr IV .Q24H [facility] Rx#:[id number] Furosemide 100 mg In 100 Sodium Chloride 0.9% 90 ml @ 10 MG/HR 10 mls/hr IV .Q10H [facility] Rx#: [id number] Oral 860 240 240 Output: Urine 500 2000 Other: Voiding Method Diaper Urinal Urinal Diaper Diaper - Labs CBC & Chem 7: 05/15/20 06:03 05/15/20 06:03 Labs: Abnormal Lab Results - Last 24 Hours (Table) 05/14/20 05/14/20 05/14/20 Range/Units 16:37 16:44 20:41 WBC (3.8-10.6) k/uL RBC (4.30-5.90) m/uL Hgb (13.0-17.5) gm/dL Hct (39.0-53.0) % MCV (80.0-100.0) fL Plt Count (150-450) k/uL Neutrophils # (1.3-7.7) k/uL Lymphocytes # (1.0-4.8) k/uL Sodium (137-145) mmol/L Potassium 3.2 L (3.5-5.1) mmol/L Chloride (98-107) mmol/L Carbon Dioxide (22-30) mmol/L BUN (9-20) mg/dL Creatinine (0.66-1.25) mg/dL Glucose (74-99) mg/dL POC Glucose (mg/dL) 148 H 218 H (75-99) mg/dL Calcium (8.4-10.2) mg/dL ALT (4-49) U/L Total Protein (6.3-8.2) g/dL Albumin (3.5-5.0) g/dL 05/15/20 05/15/20 05/15/20 Range/Units 06:03 06:03 06:04 WBC 14.8 H (3.8-10.6) k/uL RBC 3.78 L (4.30-5.90) m/uL Hgb 12.4 L (13.0-17.5) gm/dL Hct 38.4 L (39.0-53.0) % MCV 101.5 H (80.0-100.0) fL Plt Count 129 L (150-450) k/uL Neutrophils # 13.7 H (1.3-7.7) k/uL Lymphocytes # 0.4 L (1.0-4.8) k/uL Sodium 134 L (137-145) mmol/L Potassium (3.5-5.1) mmol/L Chloride 94 L (98-107) mmol/L Carbon Dioxide 37 H (22-30) mmol/L BUN 59 H (9-20) mg/dL Creatinine 1.70 H (0.66-1.25) mg/dL Glucose 141 H (74-99) mg/dL POC Glucose (mg/dL) 145 H (75-99) mg/dL Calcium 7.5 L (8.4-10.2) mg/dL ALT 101 H (4-49) U/L Total Protein 4.5 L (6.3-8.2) g/dL Albumin 2.3 L (3.5-5.0) g/dL 05/15/20 Range/Units 11:40 WBC (3.8-10.6) k/uL RBC (4.30-5.90) m/uL Hgb (13.0-17.5) gm/dL Hct (39.0-53.0) % MCV (80.0-100.0) fL Plt Count (150-450) k/uL Neutrophils # (1.3-7.7) k/uL Lymphocytes # (1.0-4.8) k/uL Sodium (137-145) mmol/L Potassium (3.5-5.1) mmol/L Chloride (98-107) mmol/L Carbon Dioxide (22-30) mmol/L BUN (9-20) mg/dL Creatinine (0.66-1.25) mg/dL Glucose (74-99) mg/dL POC Glucose (mg/dL) 140 H (75-99) mg/dL Calcium (8.4-10.2) mg/dL ALT (4-49) U/L Total Protein (6.3-8.2) g/dL Albumin (3.5-5.0) g/dL Microbiology - Last 24 Hours (Table) 05/11/20 09:45 Blood Culture - Preliminary Blood No Growth after 96 hours 05/11/20 09:50 Blood Culture - Preliminary Blood No Growth after 96 hours 05/09/20 22:01 Blood Culture - Preliminary Blood No Growth after 120 hours 05/12/20 09:30 Gram Stain - Final Sputum Sputum Culture - Final Pseudomonas aeruginosa Assessment and Plan Plan: assessment: 1. Acute kidney injury secondary to ATN secondary to cardiorenal syndrome. Renal function stable. Creatinine 1.7 today. UA benign. 2. Acute on chronic systolic CHF with ejection fraction of 40-45%. 3. Pericardial effusion status post pericardiocentesis. 4. Volume overload. Improving with diuresis. 5. Hypervolemic hyponatremia. 6. Metabolic alkalosis secondary to diuresis maintained on Diamox. Better. 7. Hypokalemia secondary to diuresis status post for placement. Better. Plan: Maintain IV Lasix 40 mg 3 times daily. Low-salt diet and 1.5 L fluid restriction. Strict I's and O's. Repeat electrolytes in the morning. Check chest x-ray in the morning.
--- NOTE | 2020-05-15 14:41 | P.PN ---
Subjective Progress Note Date: 05/15/20 This is a 74-year-old gentleman with documented history of COPD, he also has a history of smoking for several years, he quit 2 weeks ago. He is being also worked up as an outpatient for some lung nodules by pulmonary care. No documented history of hypertension, he is a nondiabetic, no hyperlipidemia. He presents to the hospital with symptoms of progressively worsening shortness of breath over a 2 week duration. Up until that time patient was quite active, was still golfing without any difficulties. His chest x-ray on presentation here showed a left sided pleural effusion, EKG normal sinus rhythm with no acute changes noted. Blood pressure 125/68, heart rate in the 80s, respirations 18, 95% on 2 L of oxygen. Venous duplex study was performed which was negative for DVT. White blood cell count 19.3, hemoglobin 13.8, platelet count 214. D-dimer 1.9, sodium 131, potassium 4.0, BUN 97, creatinine 2.9. Of note, patient's creatinine on the fourth of this month 1.2. Plasma lactic acid on admission 3.0, AST 120, ALT 204, alk phos 65, BNP level 818. Troponin 0.026, 0.028. At the time of my examination patient was quite short of breath, having to sit up straight in bed to be able to breathe, elevated jugular venous pressure to the angle of the jaw. Significant bilateral peripheral edema. A stat echocardiogram with Doppler study was requested, the echo was being performed while Dr. Ventura was in the room and it was noted that the patient had a large size pericardial effusion. Cardiothoracic surgery has been consulted to see the patient for possible pericardiocentesis. 05/15/20 Patient did subsequently this day of our consultation undergo a pericardiocentesis, the results of the pericardial fluid are yet pending. Hemodynamically the patient is stable. Blood pressure 105/60 with a heart rate in the 80s, 94% on room air. White blood cell count 14.8, hemoglobin 12.4, platelet count 129. Sodium 134, potassium 3.7, BUN 59 and creatinine 1.7. Objective - Vital Signs Vital signs: Vital Signs Temp 98 F 05/15/20 12:00 Pulse 84 05/15/20 13:10 Resp 18 05/15/20 08:00 BP 105/63 05/15/20 12:00 Pulse Ox 94 L 05/15/20 12:00 Intake & Output 05/14/20 05/15/20 05/15/20 18:59 06:59 18:59 Intake Total 1085 340 480 Output Total 500 2000 Balance 585 -1660 480 Weight 89.9 kg Intake: Intake, IV Titration 225 100 Amount Cefepime 2 gm In Sodium 100 Chloride 0.9% 100 ml @ 200 mls/hr IVPB Q12HR [facility] Rx#:[id number] Diltiazem 125 mg In 125 Sodium Chloride 0.9% 100 ml @ 5 MG/HR 5 mls/hr IV .Q24H [facility] Rx#:[id number] Furosemide 100 mg In 100 Sodium Chloride 0.9% 90 ml @ 10 MG/HR 10 mls/hr IV .Q10H [facility] Rx#: [id number] Oral 860 240 480 Output: Urine 500 2000 Other: Voiding Method Diaper Urinal Urinal Diaper Diaper # Voids 1 # Bowel Movements 0 - Exam GENERAL EXAM: Alert, very pleasant, 74-year-old gentleman, on 3 L of oxygen with a pulse ox of 94%, comfortable in no apparent distress. HEAD: Normocephalic/atraumatic. EYES: Normal reaction of pupils, equal size. Conjunctiva pink, sclera white. NOSE: Clear with pink turbinates. THROAT: No erythema or exudates. NECK: No masses, no JVD, no thyroid enlargement, no adenopathy. CHEST: No chest wall deformity. Symmetrical expansion. Anterior left chest triple-lumen catheter removed. LUNGS: Equal air entry with few scattered rhonchi, basilar crackles. CVS: Regular rate and rhythm, normal S1 and S2, no gallops, no murmurs, no rubs ABDOMEN: Soft, nontender. No hepatosplenomegaly, normal bowel sounds, no guarding or rigidity. EXTREMITIES: No clubbing, no edema, no cyanosis, 2+ pulses and upper and lower extremities. MUSCULOSKELETAL: Muscle strength and tone normal. SPINE: No scoliosis or deformity SKIN: No rashes CENTRAL NERVOUS SYSTEM: No focal deficits, tone is normal in all 4 extremities. PSYCHIATRIC: Alert and oriented -3. Appropriate affect. Intact judgment and insight. - Labs CBC & Chem 7: 05/15/20 06:03 05/15/20 06:03 Labs: Abnormal Lab Results - Last 24 Hours (Table) 05/14/20 05/14/20 05/14/20 Range/Units 16:37 16:44 20:41 WBC (3.8-10.6) k/uL RBC (4.30-5.90) m/uL Hgb (13.0-17.5) gm/dL Hct (39.0-53.0) % MCV (80.0-100.0) fL Plt Count (150-450) k/uL Neutrophils # (1.3-7.7) k/uL Lymphocytes # (1.0-4.8) k/uL Sodium (137-145) mmol/L Potassium 3.2 L (3.5-5.1) mmol/L Chloride (98-107) mmol/L Carbon Dioxide (22-30) mmol/L BUN (9-20) mg/dL Creatinine (0.66-1.25) mg/dL Glucose (74-99) mg/dL POC Glucose (mg/dL) 148 H 218 H (75-99) mg/dL Calcium (8.4-10.2) mg/dL ALT (4-49) U/L Total Protein (6.3-8.2) g/dL Albumin (3.5-5.0) g/dL 05/15/20 05/15/20 05/15/20 Range/Units 06:03 06:03 06:04 WBC 14.8 H (3.8-10.6) k/uL RBC 3.78 L (4.30-5.90) m/uL Hgb 12.4 L (13.0-17.5) gm/dL Hct 38.4 L (39.0-53.0) % MCV 101.5 H (80.0-100.0) fL Plt Count 129 L (150-450) k/uL Neutrophils # 13.7 H (1.3-7.7) k/uL Lymphocytes # 0.4 L (1.0-4.8) k/uL Sodium 134 L (137-145) mmol/L Potassium (3.5-5.1) mmol/L Chloride 94 L (98-107) mmol/L Carbon Dioxide 37 H (22-30) mmol/L BUN 59 H (9-20) mg/dL Creatinine 1.70 H (0.66-1.25) mg/dL Glucose 141 H (74-99) mg/dL POC Glucose (mg/dL) 145 H (75-99) mg/dL Calcium 7.5 L (8.4-10.2) mg/dL ALT 101 H (4-49) U/L Total Protein 4.5 L (6.3-8.2) g/dL Albumin 2.3 L (3.5-5.0) g/dL 05/15/20 Range/Units 11:40 WBC (3.8-10.6) k/uL RBC (4.30-5.90) m/uL Hgb (13.0-17.5) gm/dL Hct (39.0-53.0) % MCV (80.0-100.0) fL Plt Count (150-450) k/uL Neutrophils # (1.3-7.7) k/uL Lymphocytes # (1.0-4.8) k/uL Sodium (137-145) mmol/L Potassium (3.5-5.1) mmol/L Chloride (98-107) mmol/L Carbon Dioxide (22-30) mmol/L BUN (9-20) mg/dL Creatinine (0.66-1.25) mg/dL Glucose (74-99) mg/dL POC Glucose (mg/dL) 140 H (75-99) mg/dL Calcium (8.4-10.2) mg/dL ALT (4-49) U/L Total Protein (6.3-8.2) g/dL Albumin (3.5-5.0) g/dL Microbiology - Last 24 Hours (Table) 05/11/20 09:45 Blood Culture - Preliminary Blood No Growth after 96 hours 05/11/20 09:50 Blood Culture - Preliminary Blood No Growth after 96 hours 05/09/20 22:01 Blood Culture - Preliminary Blood No Growth after 120 hours 05/12/20 09:30 Gram Stain - Final Sputum Sputum Culture - Final Pseudomonas aeruginosa Assessment and Plan Plan: Assessment and plan #1 large pericardial effusion, status post pericardiocentesis, 850 mL of bloody fluid was removed and sent for analysis, cultures and cytology remain pending. Follow-up echo revealed trivial remaining effusion. #2 Hx of COPD #3 Lung nodules, being followed as an outpatient by Dr. Nicole #4 nicotine dependence, patient quit smoking 2 weeks ago #5 history of prostate and skin cancer #6 acute renal insufficiency, likely secondary to diuresis Plan Patient continues to be on IV Lasix as per nephrology recommendation, the chest x-ray will be performed tomorrow morning. Await results of pericardial fluid. DNP note has been reviewed, I agree with a documented findings and plan of care. Patient was seen and examined.
--- NOTE | 2020-05-15 14:59 | P.PN ---
Subjective Progress Note Date: 05/15/20 Principal diagnosis: Large pericardial effusion with early tamponade, acute kidney injury, pneumonia. History of current tobacco dependence, stop smoking 2 weeks ago, COPD, lung n odules followed by Dr. Nicole, prostate and skin cancer with resection, family history of cancer POD #5 emergent percutaneous pericardial drain insertion under echo guidance Patient's currently sitting up in bed in no acute distress. States pain is controlled on current medication regimen, some short of breath but better than prior. Continues to have loose cough. Cytology demonstrates metastatic adenocarcinoma. at bedside, care was discussed with the patient and his . All questions answered. Objective - Vital Signs Vital signs: Vital Signs Temp 98 F 05/15/20 12:00 Pulse 84 05/15/20 13:10 Resp 18 05/15/20 08:00 BP 105/63 05/15/20 12:00 Pulse Ox 94 L 05/15/20 12:00 Intake & Output 05/14/20 05/15/20 05/15/20 18:59 06:59 18:59 Intake Total 1085 340 480 Output Total 500 2000 Balance 585 -1660 480 Weight 89.9 kg Intake: Intake, IV Titration 225 100 Amount Cefepime 2 gm In Sodium 100 Chloride 0.9% 100 ml @ 200 mls/hr IVPB Q12HR [facility] Rx#:[id number] Diltiazem 125 mg In 125 Sodium Chloride 0.9% 100 ml @ 5 MG/HR 5 mls/hr IV .Q24H [facility] Rx#:[id number] Furosemide 100 mg In 100 Sodium Chloride 0.9% 90 ml @ 10 MG/HR 10 mls/hr IV .Q10H [facility] Rx#: [id number] Oral 860 240 480 Output: Urine 500 2000 Other: Voiding Method Diaper Urinal Urinal Diaper Diaper # Voids 1 # Bowel Movements 0 - Constitutional General appearance: Present: cooperative, no acute distress - Respiratory Details: Lungs sounds diminished bilaterally with expiratory wheezes present. Respirations even, slightly labored. Currently on 3 L nasal cannula with oxygen saturation 94%. Able to achieve 1500 mL on his incentive spirometry. - Cardiovascular Details: S1, S2 present. Regular rate and rhythm, sinus rhythm on telemetry. Palpable peripheral pulses bilaterally. Bilateral lower extremity 2+ edema present. Pe ricardial drain present, capped - Gastrointestinal Gastrointestinal Comment(s): Abdomen soft, nontender, nondistended. Active bowel sounds present 4 quadran ts. Tolerating diet. - Genitourinary Genitourinary Comment(s): Continues to void clear, yellow urine - Integumentary Integumentary Comment(s): Skin is warm and dry with evidence of good perfusion - Neurologic Neurologic: Present: CNII-XII intact - Musculoskeletal Musculoskeletal: Present: gait normal, strength equal bilaterally - Psychiatric Psychiatric: Present: A&O x's 3, appropriate affect, intact judgment & insight - Allied health notes Allied health notes reviewed: nursing - Labs CBC & Chem 7: 05/15/20 06:03 05/15/20 06:03 Labs: Abnormal Lab Results - Last 24 Hours (Table) 05/14/20 05/14/20 05/14/20 Range/Units 16:37 16:44 20:41 WBC (3.8-10.6) k/uL RBC (4.30-5.90) m/uL Hgb (13.0-17.5) gm/dL Hct (39.0-53.0) % MCV (80.0-100.0) fL Plt Count (150-450) k/uL Neutrophils # (1.3-7.7) k/uL Lymphocytes # (1.0-4.8) k/uL Sodium (137-145) mmol/L Potassium 3.2 L (3.5-5.1) mmol/L Chloride (98-107) mmol/L Carbon Dioxide (22-30) mmol/L BUN (9-20) mg/dL Creatinine (0.66-1.25) mg/dL Glucose (74-99) mg/dL POC Glucose (mg/dL) 148 H 218 H (75-99) mg/dL Calcium (8.4-10.2) mg/dL ALT (4-49) U/L Total Protein (6.3-8.2) g/dL Albumin (3.5-5.0) g/dL 05/15/20 05/15/20 05/15/20 Range/Units 06:03 06:03 06:04 WBC 14.8 H (3.8-10.6) k/uL RBC 3.78 L (4.30-5.90) m/uL Hgb 12.4 L (13.0-17.5) gm/dL Hct 38.4 L (39.0-53.0) % MCV 101.5 H (80.0-100.0) fL Plt Count 129 L (150-450) k/uL Neutrophils # 13.7 H (1.3-7.7) k/uL Lymphocytes # 0.4 L (1.0-4.8) k/uL Sodium 134 L (137-145) mmol/L Potassium (3.5-5.1) mmol/L Chloride 94 L (98-107) mmol/L Carbon Dioxide 37 H (22-30) mmol/L BUN 59 H (9-20) mg/dL Creatinine 1.70 H (0.66-1.25) mg/dL Glucose 141 H (74-99) mg/dL POC Glucose (mg/dL) 145 H (75-99) mg/dL Calcium 7.5 L (8.4-10.2) mg/dL ALT 101 H (4-49) U/L Total Protein 4.5 L (6.3-8.2) g/dL Albumin 2.3 L (3.5-5.0) g/dL 05/15/20 Range/Units 11:40 WBC (3.8-10.6) k/uL RBC (4.30-5.90) m/uL Hgb (13.0-17.5) gm/dL Hct (39.0-53.0) % MCV (80.0-100.0) fL Plt Count (150-450) k/uL Neutrophils # (1.3-7.7) k/uL Lymphocytes # (1.0-4.8) k/uL Sodium (137-145) mmol/L Potassium (3.5-5.1) mmol/L Chloride (98-107) mmol/L Carbon Dioxide (22-30) mmol/L BUN (9-20) mg/dL Creatinine (0.66-1.25) mg/dL Glucose (74-99) mg/dL POC Glucose (mg/dL) 140 H (75-99) mg/dL Calcium (8.4-10.2) mg/dL ALT (4-49) U/L Total Protein (6.3-8.2) g/dL Albumin (3.5-5.0) g/dL Microbiology - Last 24 Hours (Table) 05/11/20 09:45 Blood Culture - Preliminary Blood No Growth after 96 hours 05/11/20 09:50 Blood Culture - Preliminary Blood No Growth after 96 hours 05/09/20 22:01 Blood Culture - Preliminary Blood No Growth after 120 hours 05/12/20 09:30 Gram Stain - Final Sputum Sputum Culture - Final Pseudomonas aeruginosa Assessment and Plan Assessment: 1. Large pericardial effusion with early tamponade, status post emergent percutaneous pericardial drain insertion under echo guidance, cytology consistent with metastatic adenocarcinoma 2. Acute kidney injury 3. Current tobacco dependence, stop smoking 2 weeks ago 4. COPD 5. Sputum culture positive for pseudomonas aeruginosa 6. Lung nodules followed by Dr. Nicole 7. History of prostate and skin cancer with resection 8. Family history of cancer Plan: 1. Cytology resulted, will discuss with patient. 2. Continue antibiotics per infectious disease 3. Increase activity as tolerated 4. Pain control current medication regimen 5. GI/DVT prophylaxis 6. Management of other medical comorbidities per primary care, cardiology, pul monology 7. More recommendations to follow Time with Patient: Greater than 30
--- NOTE | 2020-05-15 15:56 | P.PN ---
Subjective Progress Note Date: 05/15/20 Principal diagnosis: Shortness of breath, large pericardial effusion with early tamponade, acute kidney injury Patient was seen and reevaluated today on 05/11/2020 on selective care unit, patient is status post urgent percutaneous pericardial drain insertion under echocardiogram guidance by cardiothoracic surgery, with the removal of over 850 mL of bloody drainage immediately, and additional 50 ML of bloody drainage last night. His breathing has improved although he feels like he can't take a full breath related to sharp pain in the chest when he takes a deep breath. Also he states he may have waited too long to ask for pain medication. Otherwise appears to be in no acute distress. This morning he is on 2 L of oxygen with pulse ox of 92%, blood pressure is 120/65, no tachycardia, heart rate is 86 BPM, mild tachypnea, but afebrile. Pericardial fluid cytology is pending. Patient remains on IV Lasix at 40 mg every 12 hours, he is in -2.7 L net fluid balance over the last 24 hours, repeat echocardiogram is pending for today. Advise have been discontinued. Remains on breathing treatments. Autoimmune serologies have been sent. Troponin was 0.026, 0.028, and 0.083. Today's labs have been reviewed showing white blood cell count of 24.1, hemoglobin of 13.1, sodium is 135, potassium is 3.2, chloride is 98, CO2 31, B1 is 98, creatinine is 2.35 On 05/15/2020 patient seen in follow-up on selective care unit, is awake and alert, currently on 3 L of oxygen with a pulse ox of 93%, no fever or chills, radiating seems to be comfortable, cytology of the pericardial fluid showed malignant cells consistent with metastatic adenocarcinoma. Patient also remains on antibiotics for pseudomonas aeruginosa in the sputum cultures. Current coverage is with cefepime, ID service is following, patient remains on breathing treatments, IV steroids and Symbicort. Objective - Vital Signs Vital signs: Vital Signs Temp 98 F 05/15/20 12:00 Pulse 84 05/15/20 13:10 Resp 18 05/15/20 08:00 BP 105/63 05/15/20 12:00 Pulse Ox 94 L 05/15/20 12:00 Intake & Output 05/14/20 05/15/20 05/15/20 18:59 06:59 18:59 Intake Total 1085 340 480 Output Total 500 2000 200 Balance 585 -1660 280 Weight 89.9 kg Intake: Intake, IV Titration 225 100 Amount Cefepime 2 gm In Sodium 100 Chloride 0.9% 100 ml @ 200 mls/hr IVPB Q12HR [facility] Rx#:[id number] Diltiazem 125 mg In 125 Sodium Chloride 0.9% 100 ml @ 5 MG/HR 5 mls/hr IV .Q24H [facility] Rx#:[id number] Furosemide 100 mg In 100 Sodium Chloride 0.9% 90 ml @ 10 MG/HR 10 mls/hr IV .Q10H [facility] Rx#: [id number] Oral 860 240 480 Output: Urine 500 2000 200 Other: Voiding Method Diaper Urinal Urinal Diaper Diaper # Voids 1 # Bowel Movements 0 - Exam GENERAL EXAM: Alert, very pleasant, 74-year-old white male, on 3 L of oxygen with a pulse ox of 93%, comfortable in no apparent distress. HEAD: Normocephalic/atraumatic. EYES: Normal reaction of pupils, equal size. Conjunctiva pink, sclera white. NOSE: Clear with pink turbinates. THROAT: No erythema or exudates. NECK: No masses, no JVD, no thyroid enlargement, no adenopathy. CHEST: No chest wall deformity. Symmetrical expansion. Pericardial drain site on the anterior chest clean dry and intact LUNGS: Equal air entry with no crackles, wheeze, rhonchi or dullness. CVS: Regular rate and rhythm, normal S1 and S2, no gallops, no murmurs, no rubs ABDOMEN: Soft, nontender. No hepatosplenomegaly, normal bowel sounds, no guarding or rigidity. EXTREMITIES: No clubbing, no edema, no cyanosis, 2+ pulses and upper and lower extremities. MUSCULOSKELETAL: Muscle strength and tone normal. SPINE: No scoliosis or deformity SKIN: No rashes CENTRAL NERVOUS SYSTEM: Alert and oriented -3. No focal deficits, tone is normal in all 4 extremities. PSYCHIATRIC: Alert and oriented -3. Appropriate affect. Intact judgment and insight. - Labs CBC & Chem 7: 05/15/20 06:03 05/15/20 06:03 Labs: Abnormal Lab Results - Last 24 Hours (Table) 05/14/20 05/14/20 05/14/20 Range/Units 16:37 16:44 20:41 WBC (3.8-10.6) k/uL RBC (4.30-5.90) m/uL Hgb (13.0-17.5) gm/dL Hct (39.0-53.0) % MCV (80.0-100.0) fL Plt Count (150-450) k/uL Neutrophils # (1.3-7.7) k/uL Lymphocytes # (1.0-4.8) k/uL Sodium (137-145) mmol/L Potassium 3.2 L (3.5-5.1) mmol/L Chloride (98-107) mmol/L Carbon Dioxide (22-30) mmol/L BUN (9-20) mg/dL Creatinine (0.66-1.25) mg/dL Glucose (74-99) mg/dL POC Glucose (mg/dL) 148 H 218 H (75-99) mg/dL Calcium (8.4-10.2) mg/dL ALT (4-49) U/L Total Protein (6.3-8.2) g/dL Albumin (3.5-5.0) g/dL 05/15/20 05/15/20 05/15/20 Range/Units 06:03 06:03 06:04 WBC 14.8 H (3.8-10.6) k/uL RBC 3.78 L (4.30-5.90) m/uL Hgb 12.4 L (13.0-17.5) gm/dL Hct 38.4 L (39.0-53.0) % MCV 101.5 H (80.0-100.0) fL Plt Count 129 L (150-450) k/uL Neutrophils # 13.7 H (1.3-7.7) k/uL Lymphocytes # 0.4 L (1.0-4.8) k/uL Sodium 134 L (137-145) mmol/L Potassium (3.5-5.1) mmol/L Chloride 94 L (98-107) mmol/L Carbon Dioxide 37 H (22-30) mmol/L BUN 59 H (9-20) mg/dL Creatinine 1.70 H (0.66-1.25) mg/dL Glucose 141 H (74-99) mg/dL POC Glucose (mg/dL) 145 H (75-99) mg/dL Calcium 7.5 L (8.4-10.2) mg/dL ALT 101 H (4-49) U/L Total Protein 4.5 L (6.3-8.2) g/dL Albumin 2.3 L (3.5-5.0) g/dL 05/15/20 Range/Units 11:40 WBC (3.8-10.6) k/uL RBC (4.30-5.90) m/uL Hgb (13.0-17.5) gm/dL Hct (39.0-53.0) % MCV (80.0-100.0) fL Plt Count (150-450) k/uL Neutrophils # (1.3-7.7) k/uL Lymphocytes # (1.0-4.8) k/uL Sodium (137-145) mmol/L Potassium (3.5-5.1) mmol/L Chloride (98-107) mmol/L Carbon Dioxide (22-30) mmol/L BUN (9-20) mg/dL Creatinine (0.66-1.25) mg/dL Glucose (74-99) mg/dL POC Glucose (mg/dL) 140 H (75-99) mg/dL Calcium (8.4-10.2) mg/dL ALT (4-49) U/L Total Protein (6.3-8.2) g/dL Albumin (3.5-5.0) g/dL Microbiology - Last 24 Hours (Table) 05/11/20 09:45 Blood Culture - Preliminary Blood No Growth after 96 hours 05/11/20 09:50 Blood Culture - Preliminary Blood No Growth after 96 hours 05/09/20 22:01 Blood Culture - Preliminary Blood No Growth after 120 hours 05/12/20 09:30 Gram Stain - Final Sputum Sputum Culture - Final Pseudomonas aeruginosa Assessment and Plan Plan: Assessment: #1. Metastatic adenocarcinoma with large pericardial effusion with early tamponade, status post emergent percutaneous pericardial drain insertion under echo guidance, postop day 1, with immediate removal of 850 ML of bloody pericardial fluid which was sent for analysis, cultures and cytology. There was an additional 50 ML removed from the catheter yesterday evening on 05/10/2020. Pericardial fluid cytology was positive for malignant cells consistent with m etastatic adenocarcinoma with nonspecific pattern, with potential primary sources including upper GI/pancreatic or biliary tract or lung adenocarcinoma #2. Severe dyspnea acute hypoxic respiratory failure related to the above, improved #3. Acute kidney injury, slightly improved on today's labs #4. Mild plasma lactic acidosis, improved #5. History of COPD, with baseline FEV1 of 34% of predicted #6. Long history of smoking, currently in remission for last 3 weeks, carries [id number] smoking history #7. Pulmonary nodules, abdomen followed by Dr. Nicole, and are stable #8. Significant lower extremity edema with no evidence of DVT #9. History of prostate cancer #10. Restless leg syndrome #11. Chronic deafness #12. Pseudomonal pulmonary infection, currently on cefepime Plan: Pericardial fluid showed malignant cells consistent with metastatic adenocarcinoma with potential upper GI/pancreatic or lung primary. Send CEA, CA 19-9, will consult medical oncology, continue with current medical management. I performed a history & physical examination of the patient and discussed their management with my nurse practitioner, Kandi Saleem. I reviewed the nurse practitioner's note and agree with the documented findings and plan of care. Lung sounds are positive for diminished breath sounds. The findings and the impression was discussed with the patient. I attest to the documentation by the nurse practitioner. Time with Patient: Less than 30
--- NOTE | 2020-05-15 16:09 | P.PN ---
Subjective Progress Note Date: 05/15/20 05/09/2020 74-year-old male patient presented emergency room ambulatory chief complaint of shortness of breath. In ER chest x-ray showed small pleural effusions are essentially new compared to all exam no gross heart failure. He has had a long-standing history of COPD, and noted history of smoking. He quit approximately 3 weeks ago at the onset of current symptoms. He was seen in emergency room for similar complaint earlier in the month and he has been seen in the office twice once for ER follow-up and the other for recheck. From the office he was started on 80 mg of Lasix as well as clarithromycin. With taking medications he stated there was no improvement in his symptoms and his fatigue worsened. He was also ordered a rescue inhaler but had minimal improvement with its use. He denied chest pain, unilateral numbness or weakness, orthopnea. Continue to have bilateral lower extremity peripheral edema. He has no history of hypertension, DVT or PE, denies history of heart failure, does not utilized home O2, denies fever or chills. He he denied cough and arrival in ER. Past medical history of cancer, COPD, heart appearing as related to being in the , prostate disorder, every day smoker up until current sickness. Is also noted to have a right hip. Echocardiogram this morning showed ejection fraction 40-45% with very mild left ventricular hypokinesis. Is also noted to have large global pericardial effusion without tamponade. Appears cardiology was on hand at time of echo and consulted cardiothoracic for evaluation. Dr. Jimenez saw patient in room and performed a percutaneous pericardial drainage with echo guidance in which he 850 ml of bloody pericardial fluid was drained and sent for cytology, LDH, protein, glucose. Venous Doppler duplex lower summary bilaterally was completed today impression showed early to moderate diffuse subcutaneous edema greatest towards the periphery bilaterally without acute DVT in either extremity. Current labs WBC of 19.3, hemoglobin 13.8, hematocrit 42.1, platelet count 214, neutrophils 16.1, monocytes 1.4, PT of 12.8, INR 1.3, d-dimer 1.95. Chemistry revealed a sodium 131, potassium 4.0, chloride 92, bun 97, creatinine of 2.99, lactic acid initially was 3.0 and resuscitated down to 1.9. AST 120, Whitney T O'Spink for, initial troponin 0.0-6, which elevated later to 0.083. Most recent chart of vitals afebrile 98.2, pulse rate of 92 normal sinus rhythm, respiratory rate of 22, blood pressure 120/72, oxygen saturation 96% on 2 L nasal cannula. 05/11/2020 worsening shortness of breath, desatted into the 80s, O2 increased from 3 L to 5 L this morning, maintaining O2 sats of 91-92% currently. Nonproductive cough. Pericardial cytology pending. Last night drained approximately 50 MLS and trace drainage this morning .Mild confusion with desaturation. Worsening edema. Chest x-ray reporting increased small pleural effusions with prominent by bibasilar atelectasis/consolidation .Converted from Lasix IV push to Lasix drip. Afebrile, WBC up to 24. Complains of left chest pericardial drain site pain. Renal function is slowly improving, down to 2.35. Potassium 3.2. 05/12/2020 diuresing well on Lasix drip with 24-hour I&O reflecting a negative fluid balance. Maintained on nebulized bronchodilators with the addition of IV steroids. Continues on 5 L nasal cannula, maintaining O2 sats in the 90s. Prod uctive cough with thick yellow sputum, collected for culture. Blood cultures reporting no growth. Pericardial cytology pending. Fluid analysis exudative. WBC trending up, 25.4, afebrile.infectious disease consulted , daptomycin and cefepime initiated.Pain controlled. No drainage from pericardial drain, repeat echo performed this morning reporting trivial pericardial effusion. Renal function improving down to 1.87. Potassium 3.4. 05/15/2020 pericardial fluid cytology reporting metastatic adenocarcinoma. Pericardial drain discontinued over the weekend. Diuresing well on Lasix IV push with 24-hour I&O reflecting a negative fluid balance. Significant clinical improvement. Ambulating, tolerating exertion well. Renal function continues to improve down to 1.7. VSS. Oxygen has been weaned down to 3 L nasal cannula, maintaining O2 sats in the 90s. IS up to 1500. Afebrile, WBC 14.8 on cefepime Objective - Vital Signs Vital signs: Vital Signs Temp 98 F 05/15/20 12:00 Pulse 84 05/15/20 13:10 Resp 18 05/15/20 08:00 BP 105/63 05/15/20 12:00 Pulse Ox 94 L 05/15/20 12:00 Intake & Output 05/14/20 05/15/20 05/15/20 18:59 06:59 18:59 Intake Total 1085 340 480 Output Total 500 2000 200 Balance 585 -1660 280 Weight 89.9 kg Intake: Intake, IV Titration 225 100 Amount Cefepime 2 gm In Sodium 100 Chloride 0.9% 100 ml @ 200 mls/hr IVPB Q12HR RUPERTO Rx#:[id number] Diltiazem 125 mg In 125 Sodium Chloride 0.9% 100 ml @ 5 MG/HR 5 mls/hr IV .Q24H RUPERTO Rx#:[id number] Furosemide 100 mg In 100 Sodium Chloride 0.9% 90 ml @ 10 MG/HR 10 mls/hr IV .Q10H RUPERTO Rx#: [id number] Oral 860 240 480 Output: Urine 500 2000 200 Other: Voiding Method Diaper Urinal Urinal Diaper Diaper # Voids 1 # Bowel Movements 0 - Exam GENERAL: Sitting up in chair, no acute distress HEAD: Atraumatic, normocephalic. EYES: Pupils equal round and reactive to light, sclera anicteric, conjunctiva are normal. ENT:nares patent, oropharynx clear without exudates. Oral mucosa moist. NECK: Normal range of motion, supple without lymphadenopathy or JVD, no thyromegaly LUNGS: Breath sounds diminished,Scattered rhonchi with fine bibasilar crackles , occasional minimal expiratory wheezing. HEART: Regular rate and rhythm without murmurs, rubs or gallops.S1S2 Normal. ABDOMEN: Soft, nontender, normoactive bowel sounds. No guarding, no rebound. No masses appreciated. EXTREMITIES: Normal range of motion, minimal edema. No clubbing or cyanosis. NEUROLOGICAL: Cranial nerves II through XII grossly intact. Normal speech, . PSYCH: Normal mood, normal affect. SKIN: Warm, Dry, normal turgor, no rashes. Microbiology 05/11/20 09:45 Blood Blood Culture - Preliminary No Growth after 96 hours 05/11/20 09:50 Blood Blood Culture - Preliminary No Growth after 96 hours 05/09/20 22:01 Blood Blood Culture - Preliminary No Growth after 120 hours 05/12/20 09:30 Sputum Gram Stain - Final 05/12/20 09:30 Sputum Sputum Culture - Final Pseudomonas aeruginosa - Labs CBC & Chem 7: 05/15/20 06:03 05/15/20 06:03 Labs: Abnormal Lab Results - Last 24 Hours (Table) 05/14/20 05/14/20 05/14/20 Range/Units 16:37 16:44 20:41 WBC (3.8-10.6) k/uL RBC (4.30-5.90) m/uL Hgb (13.0-17.5) gm/dL Hct (39.0-53.0) % MCV (80.0-100.0) fL Plt Count (150-450) k/uL Neutrophils # (1.3-7.7) k/uL Lymphocytes # (1.0-4.8) k/uL Sodium (137-145) mmol/L Potassium 3.2 L (3.5-5.1) mmol/L Chloride (98-107) mmol/L Carbon Dioxide (22-30) mmol/L BUN (9-20) mg/dL Creatinine (0.66-1.25) mg/dL Glucose (74-99) mg/dL POC Glucose (mg/dL) 148 H 218 H (75-99) mg/dL Calcium (8.4-10.2) mg/dL ALT (4-49) U/L Total Protein (6.3-8.2) g/dL Albumin (3.5-5.0) g/dL 05/15/20 05/15/20 05/15/20 Range/Units 06:03 06:03 06:04 WBC 14.8 H (3.8-10.6) k/uL RBC 3.78 L (4.30-5.90) m/uL Hgb 12.4 L (13.0-17.5) gm/dL Hct 38.4 L (39.0-53.0) % MCV 101.5 H (80.0-100.0) fL Plt Count 129 L (150-450) k/uL Neutrophils # 13.7 H (1.3-7.7) k/uL Lymphocytes # 0.4 L (1.0-4.8) k/uL Sodium 134 L (137-145) mmol/L Potassium (3.5-5.1) mmol/L Chloride 94 L (98-107) mmol/L Carbon Dioxide 37 H (22-30) mmol/L BUN 59 H (9-20) mg/dL Creatinine 1.70 H (0.66-1.25) mg/dL Glucose 141 H (74-99) mg/dL POC Glucose (mg/dL) 145 H (75-99) mg/dL Calcium 7.5 L (8.4-10.2) mg/dL ALT 101 H (4-49) U/L Total Protein 4.5 L (6.3-8.2) g/dL Albumin 2.3 L (3.5-5.0) g/dL 05/15/20 Range/Units 11:40 WBC (3.8-10.6) k/uL RBC (4.30-5.90) m/uL Hgb (13.0-17.5) gm/dL Hct (39.0-53.0) % MCV (80.0-100.0) fL Plt Count (150-450) k/uL Neutrophils # (1.3-7.7) k/uL Lymphocytes # (1.0-4.8) k/uL Sodium (137-145) mmol/L Potassium (3.5-5.1) mmol/L Chloride (98-107) mmol/L Carbon Dioxide (22-30) mmol/L BUN (9-20) mg/dL Creatinine (0.66-1.25) mg/dL Glucose (74-99) mg/dL POC Glucose (mg/dL) 140 H (75-99) mg/dL Calcium (8.4-10.2) mg/dL ALT (4-49) U/L Total Protein (6.3-8.2) g/dL Albumin (3.5-5.0) g/dL Microbiology - Last 24 Hours (Table) 05/11/20 09:45 Blood Culture - Preliminary Blood No Growth after 96 hours 05/11/20 09:50 Blood Culture - Preliminary Blood No Growth after 96 hours 05/09/20 22:01 Blood Culture - Preliminary Blood No Growth after 120 hours 05/12/20 09:30 Gram Stain - Final Sputum Sputum Culture - Final Pseudomonas aeruginosa Assessment and Plan Assessment: (1) large Pericardial effusion with early cardiac tamponade, status post emergent percutaneous pericardial drain , cytology reporting metastatic adenocarcinoma Current Visit: Yes Status: Acute Code(s): I31.3 - PERICARDIAL EFFUSION (NONINFLAMMATORY) SNOMED Code(s): 526534695 (2) Acute kidney injury, cardiorenal Current Visit: Yes Status: Acute Code(s): N17.9 - ACUTE KIDNEY FAILURE, UNSPECIFIED SNOMED Code(s): 06508257 (3) COPD exacerbation Current Visit: Yes Status: Acute Code(s): J44.1 - CHRONIC OBSTRUCTIVE PULMONARY DISEASE W (ACUTE) EXACERBATION SNOMED Code(s): 170209728 (4) Pneumonia, sputum cultures reporting pseudomonas aeruginosa Current Visit: No Status: Acute Code(s): J18.9 - PNEUMONIA, UNSPECIFIED ORGANISM SNOMED Code(s): 777706588 (5) Shortness of breath Current Visit: Yes Status: Acute Code(s): R06.02 - SHORTNESS OF BREATH SNOMED Code(s): 523897010 (6) Edema, peripheral Current Visit: Yes Status: Acute Code(s): R60.9 - EDEMA, UNSPECIFIED SNOMED Code(s): 176706689 (7) hypokalemia secondary to diuretics (8) lactic acidosis, improved (9) acute metabolic encephalopathy secondary to hypoxia (10) acute hypoxic respiratory failure secondary to #1 (11) nicotine dependence, [id number] ,quit smoking 2 weeks ago (12) Lung nodules, being followed outpatient with Dr. Nicole (13) history of prostate cancer, skin cancer (14) chronic deafness (15) leukocytosis, possibly secondary to sepsis related to #1 (16) oral candidasis Plan: Continue on current medication regime ,monitoring and symptomatic treatment. Oncology consulted secondary to metastatic adenocarcinoma cytology. Diuretics as per nephrology. Antibiotics as per Infectious disease.Close m onitoring of renal function and electrolyte with repeat labs ordered for a.m. Prognosis guarded given multiple complex medical issues. Discharge planning in progress possibly for tomorrow pending consults clearance and oncology's recommendations. The impression and plan of care has been dictated as directed. : I performed a history and examination of this patient, discussed the same with the dictator. I agree with the dictator's note ,documented as a scribe. Any additional findings or plans will be noted.
[2020-05-15 16:56] LABS: Glucose,Whole Blood 190 mg/dL (75-99)
--- NOTE | 2020-05-15 18:35 | PN ---
PROGRESS NOTE DATE OF SERVICE: 05/15/2020 REASON FOR FOLLOWUP: Leukocytosis and a question of pneumonia. INTERVAL HISTORY: The patient is currently afebrile. The patient is breathing more comfortably. The patient denies having any chest pain or shortness of breath. He did have some cough, though decreased in intensity, with occasional sputum. No nausea, vomiting. No abdominal pain or diarrhea. PHYSICAL EXAMINATION: Blood pressure 108/55 with a pulse of 88, temperature 98. He is 95% on 2 L nasal cannula. General description is a middle-aged male up in the bed in no distress. RESPIRATORY SYSTEM: Unlabored breathing with decreased intensity of breath sounds. No wheeze. HEART: S1, S2. Regular rate and rhythm. ABDOMEN: Soft. No tenderness. LABS: Hemoglobin is 12.4, white count 14.8, BUN of 59, creatinine 1.70. DIAGNOSTIC IMPRESSION AND PLAN: Patient with leukocytosis, multifactorial; possibly reactive in this patient who did have a large pericardial effusion, status post pericardial drain, also with possible component of pneumonia. The patient is currently covered with cefepime. White count is slightly high today. That will be monitored closely. Continue with supportive care. MMODL / IJN: [id number] /
[2020-05-15 20:15] LABS: Glucose,Whole Blood 154 mg/dL (75-99)
[2020-05-15] MEDS: MELATONIN 5 MG TABLET PO SCH (20:34)
[2020-05-15] MEDS: clonazePAM 0.5 MG TAB PO SCH (20:34)
[2020-05-15] MEDS: SODIUM CHLORIDE 0.9% 1,000 ML IV SCH (23:04)
[2020-05-16 05:48] LABS: Glucose,Whole Blood 148 mg/dL (75-99)
[2020-05-16] MEDS: INSULIN ASPART (NovoLOG) 100 UNIT/ML VIAL SQ SCH ×4 (06:41→22:27)
[2020-05-16 07:03] LABS: Calcium 7.7 mg/dL (8.4-10.2); Magnesium 2.2 mg/dL (1.6-2.3); Potassium 3.6 mmol/L (3.5-5.1)
[2020-05-16] MEDS ORDERED: POTASSIUM CHLORIDE ER 20 MEQ TAB.ER PO SCH (08:00)
[2020-05-16] MEDS: IPRATROPIUM-ALBUTEROL 3 ML NEB INHALATION SCH ×4 (08:47→19:08)
[2020-05-16] MEDS: SYMBICORT 160-4.5 MCG INHALER INHALATION SCH ×2 (08:47→19:08)
[2020-05-16] MEDS ORDERED: POTASSIUM CHLORIDE ER 20 MEQ TAB.ER PO STA (09:45)
--- NOTE | 2020-05-16 09:46 | P.PN ---
Subjective Patient is seen in follow-up for acute kidney injury. Renal function is stable. Currently maintained on IV Lasix 40 mg every 8 hours. Edema improving. Oral intake fair. No chest pain or shortness of breath. Hemodynamically stable. No changes overnight. Vital signs are stable. General: The patient appeared well nourished and normally developed. HEENT: Head exam is unremarkable. Neck is without jugular venous distension. LUNGS: Breath sounds decreased. HEART: Rate and Rhythm are regular. ABDOMEN: Soft, nontender. EXTREMITITES: 1+ edema. Objective - Vital Signs Vital signs: Vital Signs Temp 98.0 F 05/16/20 04:00 Pulse 88 05/16/20 09:04 Resp 18 05/16/20 04:00 BP 106/55 05/16/20 04:00 Pulse Ox 97 05/16/20 08:47 Intake & Output 05/15/20 05/16/20 05/16/20 18:59 06:59 18:59 Intake Total 720 480 240 Output Total 200 2825 Balance 520 -2345 240 Weight 88.5 kg Intake: Oral 720 480 240 Output: Urine 200 2825 Other: Voiding Method Urinal Urinal Diaper Diaper # Voids 1 # Bowel Movements 0 - Labs CBC & Chem 7: 05/15/20 06:03 05/16/20 06:01 Labs: Abnormal Lab Results - Last 24 Hours (Table) 05/14/20 05/15/20 05/15/20 Range/Units 16:44 11:40 16:54 Sodium (137-145) mmol/L Chloride (98-107) mmol/L Carbon Dioxide (22-30) mmol/L BUN (9-20) mg/dL Creatinine (0.66-1.25) mg/dL Glucose (74-99) mg/dL POC Glucose (mg/dL) 140 H 190 H (75-99) mg/dL Calcium (8.4-10.2) mg/dL Carcinoembryonic Ag 88.1 H (0.0-4.9) ng/mL 05/15/20 05/16/20 05/16/20 Range/Units 20:14 05:45 06:01 Sodium 135 L (137-145) mmol/L Chloride 95 L (98-107) mmol/L Carbon Dioxide 37 H (22-30) mmol/L BUN 53 H (9-20) mg/dL Creatinine 1.72 H (0.66-1.25) mg/dL Glucose 146 H (74-99) mg/dL POC Glucose (mg/dL) 154 H 148 H (75-99) mg/dL Calcium 7.7 L (8.4-10.2) mg/dL Carcinoembryonic Ag (0.0-4.9) ng/mL Microbiology - Last 24 Hours (Table) 05/09/20 22:01 Blood Culture - Final Blood No Growth after 144 hours 05/11/20 09:45 Blood Culture - Preliminary Blood No Growth after 96 hours 05/11/20 09:50 Blood Culture - Preliminary Blood No Growth after 96 hours Assessment and Plan Plan: assessment: 1. Acute kidney injury secondary to ATN secondary to cardiorenal syndrome. Renal function stable. Creatinine 1.72 today. UA benign. 2. Acute on chronic systolic CHF with ejection fraction of 40-45%. 3. Pericardial effusion status post pericardiocentesis. 4. Volume overload. Improving with diuresis. 5. Hypervolemic hyponatremia. 6. Metabolic alkalosis secondary to diuresis maintained on Diamox. Stable. 7. Hypokalemia secondary to diuresis status post for placement. 8. Pericardial fluid cytology positive for metastatic adenocarcinoma. Oncology following. Plan: Maintain IV Lasix 40 mg 3 times daily - can likely start to taper tomorrow. Replace potassium. 40 mEq today. Low-salt diet and 1.5 L fluid restriction. Strict I's and O's. Repeat electrolytes in the morning. Check chest x-ray in the morning.
[2020-05-16] MEDS: METOPROLOL TARTRATE 25 MG TAB PO SCH ×3 (09:51→21:43)
[2020-05-16] MEDS: CEFEPIME 2 GM in SODIUM CHLORIDE 0.9% 100 ML IVPB SCH ×2 (09:51→21:34)
[2020-05-16] MEDS: DOCUSATE 100 MG CAP PO SCH ×2 (09:51→21:33)
[2020-05-16] MEDS: methylPREDNISolone SOD SUCCI 40 MG/ML 1 ML VIAL IV SCH ×3 (09:52→23:51)
[2020-05-16] MEDS: PANTOPRAZOLE 40 MG TABLET PO SCH (09:52)
[2020-05-16] MEDS: NYSTATIN 100,000 UNIT/ML SUSP 500,000 UNIT/5 ML CUP PO SCH ×4 (09:53→21:43)
[2020-05-16] MEDS: acetaZOLAMIDE 250 MG TAB PO SCH ×2 (09:53→21:33)
[2020-05-16] MEDS: FUROSEMIDE 10 MG/ML 4 ML VIAL IV SCH ×3 (09:53→23:51)
[2020-05-16] MEDS: SENNOSIDES-DOCUSATE SODIUM 1 EACH TAB PO SCH ×2 (09:54→21:33)
--- NOTE | 2020-05-16 10:59 | XR ---
EXAMINATION TYPE: XR chest 1V DATE OF EXAM: 05/16/2020 CLINICAL HISTORY: Difficulty breathing, history of stage IV cancer. TECHNIQUE: Single AP portable upright view of the chest is obtained. COMPARISON: Chest x-ray from [address] chest 4 days earlier. FINDINGS: There is background moderate chronic emphysematous change with small to tiny bilateral ple ural effusions that are felt stable or improved from prior studies. There is associated bibasilar com pressive atelectasis. Upper lungs remain clear without pneumothorax. Cardiac silhouette size stable a nd mildly enlarged with atherosclerotic thoracic aorta. Osseous structures are demineralized. IMPRESSION: Cardiomegaly and chronic emphysematous change with small bilateral pleural effusions and associated bibasilar atelectasis and/or infiltrates. No significant change from prior studies.
--- NOTE | 2020-05-16 11:06 | P.PN ---
Subjective Progress Note Date: 05/16/20 Principal diagnosis: Large pericardial effusion with early tamponade, acute kidney injury, pneumonia, cytology consistent with metastatic adenocarcinoma. History of current tobacco dependence, stop smoking 2 weeks ago, COPD, lung nodules followed by Dr. Nicole, prostate and skin cancer with resection, family history of cancer POD #6 emergent percutaneous pericardial drain insertion under echo guidance Patient's currently sitting up in bed in no acute distress. States pain is controlled on current medication regimen, some short of breath but better than prior. Continues to have loose cough. Cytology demonstrates metastatic adenocarcinoma. at bedside, care was discussed with the patient and his . All questions answered. Objective - Vital Signs Vital signs: Vital Signs Temp 98.3 F 05/16/20 08:00 Pulse 88 05/16/20 09:04 Resp 18 05/16/20 08:00 BP 118/60 05/16/20 08:00 Pulse Ox 97 05/16/20 08:47 Intake & Output 05/15/20 05/16/20 05/16/20 18:59 06:59 18:59 Intake Total 720 480 240 Output Total 200 2825 Balance 520 -2345 240 Weight 88.5 kg Intake: Oral 720 480 240 Output: Urine 200 2825 Other: Voiding Method Urinal Urinal Urinal Diaper Diaper Diaper # Voids 1 # Bowel Movements 0 - Constitutional General appearance: Present: cooperative, no acute distress - Respiratory Details: Lungs sounds diminished bilaterally with expiratory wheezes present. Respirations even, slightly labored. Currently on 2 L nasal cannula with oxygen saturation 97%. Able to achieve 1500 mL on his incentive spirometry. - Cardiovascular Details: S1, S2 present. Regular rate and rhythm, sinus rhythm on telemetry. Palpable peripheral pulses bilaterally. Bilateral lower extremity 1-2+ edema present. - Gastrointestinal Gastrointestinal Comment(s): Abdomen soft, nontender, nondistended. Active bowel sounds present 4 quadrants. Tolerating diet - Genitourinary Genitourinary Comment(s): Continues to void clear, yellow urine - Integumentary Integumentary Comment(s): Skin is warm and dry with evidence of good perfusion - Neurologic Neurologic: Present: CNII-XII intact - Musculoskeletal Musculoskeletal: Present: gait normal, strength equal bilaterally - Psychiatric Psychiatric: Present: A&O x's 3, appropriate affect, intact judgment & insight - Allied health notes Allied health notes reviewed: nursing - Labs CBC & Chem 7: 05/15/20 06:03 05/16/20 06:01 Labs: Abnormal Lab Results - Last 24 Hours (Table) 05/14/20 05/15/20 05/15/20 Range/Units 16:44 11:40 16:54 Sodium (137-145) mmol/L Chloride (98-107) mmol/L Carbon Dioxide (22-30) mmol/L BUN (9-20) mg/dL Creatinine (0.66-1.25) mg/dL Glucose (74-99) mg/dL POC Glucose (mg/dL) 140 H 190 H (75-99) mg/dL Calcium (8.4-10.2) mg/dL Carcinoembryonic Ag 88.1 H (0.0-4.9) ng/mL 05/15/20 05/16/20 05/16/20 Range/Units 20:14 05:45 06:01 Sodium 135 L (137-145) mmol/L Chloride 95 L (98-107) mmol/L Carbon Dioxide 37 H (22-30) mmol/L BUN 53 H (9-20) mg/dL Creatinine 1.72 H (0.66-1.25) mg/dL Glucose 146 H (74-99) mg/dL POC Glucose (mg/dL) 154 H 148 H (75-99) mg/dL Calcium 7.7 L (8.4-10.2) mg/dL Carcinoembryonic Ag (0.0-4.9) ng/mL Microbiology - Last 24 Hours (Table) 05/09/20 22:01 Blood Culture - Final Blood No Growth after 144 hours 05/11/20 09:45 Blood Culture - Preliminary Blood No Growth after 96 hours 05/11/20 09:50 Blood Culture - Preliminary Blood No Growth after 96 hours - Imaging and Cardiology Chest x-ray: report reviewed, image reviewed Assessment and Plan Assessment: 1. Large pericardial effusion with early tamponade, status post emergent percutaneous pericardial drain insertion under echo guidance, cytology consistent with metastatic adenocarcinoma 2. Acute kidney injury 3. Current tobacco dependence, stop smoking 2 weeks ago 4. COPD 5. Sputum culture positive for pseudomonas aeruginosa 6. Lung nodules followed by Dr. Nicole 7. History of prostate and skin cancer with resection 8. Family history of cancer Plan: 1. Cytology resulted, discussed with patient and , oncology consulted 2. Continue antibiotics per infectious disease 3. Increase activity as tolerated 4. Pain control current medication regimen 5. GI/DVT prophylaxis 6. Management of other medical comorbidities per primary care, cardiology, pulmonology 7. Will see again as needed. Please call us with any further questions Time with Patient: Greater than 30
[2020-05-16 12:24] LABS: Glucose,Whole Blood 136 mg/dL (75-99)
[2020-05-16] MEDS ORDERED: LORazepam 2 MG/ML INJ IV STA (12:39)
[2020-05-16] MEDS ORDERED: LORazepam 2 MG/ML INJ IV PRN (12:40)
--- NOTE | 2020-05-16 13:05 | P.PN ---
Subjective Progress Note Date: 05/16/20 Principal diagnosis: Shortness of breath, large pericardial effusion with early tamponade, acute kidney injury Patient was seen and reevaluated today on 05/11/2020 on selective care unit, patient is status post urgent percutaneous pericardial drain insertion under echocardiogram guidance by cardiothoracic surgery, with the removal of over 850 mL of bloody drainage immediately, and additional 50 ML of bloody drainage last night. His breathing has improved although he feels like he can't take a full breath related to sharp pain in the chest when he takes a deep breath. Also he states he may have waited too long to ask for pain medication. Otherwise appears to be in no acute distress. This morning he is on 2 L of oxygen with pulse ox of 92%, blood pressure is 120/65, no tachycardia, heart rate is 86 BPM, mild tachypnea, but afebrile. Pericardial fluid cytology is pending. Patient remains on IV Lasix at 40 mg every 12 hours, he is in -2.7 L net fluid balance over the last 24 hours, repeat echocardiogram is pending for today. Advise have been discontinued. Remains on breathing treatments. Autoimmune serologies have been sent. Troponin was 0.026, 0.028, and 0.083. Today's labs have been reviewed showing white blood cell count of 24.1, hemoglobin of 13.1, sodium is 135, potassium is 3.2, chloride is 98, CO2 31, B1 is 98, creatinine is 2.35 On 05/15/2020 patient seen in follow-up on selective care unit, is awake and alert, currently on 3 L of oxygen with a pulse ox of 93%, no fever or chills, radiating seems to be comfortable, cytology of the pericardial fluid showed malignant cells consistent with metastatic adenocarcinoma. Patient also remains on antibiotics for pseudomonas aeruginosa in the sputum cultures. Current coverage is with cefepime, ID service is following, patient remains on breathing treatments, IV steroids and Symbicort. On 05/16/2020 patient seen in follow-up on the selective care unit, pericardial fluid cytology showed malignant cells consistent with metastatic adenocarcinoma with unknown primary. Medical oncology has been consulted. Breathing ruiz patient is doing better, still has a wet congested cough, vitals are stable, patient is currently on 2 L of oxygen a pulse ox of 97%, denies any fever or chills, denies any chest pain. Today's chest x-ray shows cardiomegaly and chronic emphysematous changes with small bilateral pleural effusions and bibasilar atelectasis. Today's labs have been reviewed, electrolytes appear to be stable, and renal profile is stable. No nausea vomiting or diarrhea, results of the cytology were discussed with the patient, and Dr. Trejo was in the room, patient was informed of the need to complete the workup to determine primary origin of the metastatic adenocarcinoma. Objective - Vital Signs Vital signs: Vital Signs Temp 98.3 F 05/16/20 08:00 Pulse 85 05/16/20 11:54 Resp 18 05/16/20 08:00 BP 118/60 05/16/20 08:00 Pulse Ox 97 05/16/20 08:47 Intake & Output 05/15/20 05/16/20 05/16/20 18:59 06:59 18:59 Intake Total 720 480 240 Output Total 200 2825 Balance 520 -2345 240 Weight 88.5 kg Intake: Oral 720 480 240 Output: Urine 200 2825 Other: Voiding Method Urinal Urinal Urinal Diaper Diaper Diaper # Voids 1 # Bowel Movements 0 - Exam GENERAL EXAM: Alert, very pleasant, 74-year-old white male, on 3 L of oxygen with a pulse ox of 93%, comfortable in no apparent distress. HEAD: Normocephalic/atraumatic. EYES: Normal reaction of pupils, equal size. Conjunctiva pink, sclera white. NOSE: Clear with pink turbinates. THROAT: No erythema or exudates. NECK: No masses, no JVD, no thyroid enlargement, no adenopathy. CHEST: No chest wall deformity. Symmetrical expansion. Pericardial drain site on the anterior chest clean dry and intact LUNGS: Equal air entry with no crackles, wheeze, rhonchi or dullness. CVS: Regular rate and rhythm, normal S1 and S2, no gallops, no murmurs, no rubs ABDOMEN: Soft, nontender. No hepatosplenomegaly, normal bowel sounds, no guarding or rigidity. EXTREMITIES: No clubbing, no edema, no cyanosis, 2+ pulses and upper and lower extremities. MUSCULOSKELETAL: Muscle strength and tone normal. SPINE: No scoliosis or deformity SKIN: No rashes CENTRAL NERVOUS SYSTEM: Alert and oriented -3. No focal deficits, tone is normal in all 4 extremities. PSYCHIATRIC: Alert and oriented -3. Appropriate affect. Intact judgment and insight. - Labs CBC & Chem 7: 05/15/20 06:03 05/16/20 06:01 Labs: Abnormal Lab Results - Last 24 Hours (Table) 05/14/20 05/15/20 05/15/20 Range/Units 16:44 16:54 20:14 Sodium (137-145) mmol/L Chloride (98-107) mmol/L Carbon Dioxide (22-30) mmol/L BUN (9-20) mg/dL Creatinine (0.66-1.25) mg/dL Glucose (74-99) mg/dL POC Glucose (mg/dL) 190 H 154 H (75-99) mg/dL Calcium (8.4-10.2) mg/dL Carcinoembryonic Ag 88.1 H (0.0-4.9) ng/mL 05/16/20 05/16/20 05/16/20 Range/Units 05:45 06:01 12:23 Sodium 135 L (137-145) mmol/L Chloride 95 L (98-107) mmol/L Carbon Dioxide 37 H (22-30) mmol/L BUN 53 H (9-20) mg/dL Creatinine 1.72 H (0.66-1.25) mg/dL Glucose 146 H (74-99) mg/dL POC Glucose (mg/dL) 148 H 136 H (75-99) mg/dL Calcium 7.7 L (8.4-10.2) mg/dL Carcinoembryonic Ag (0.0-4.9) ng/mL Microbiology - Last 24 Hours (Table) 05/11/20 09:45 Blood Culture - Preliminary Blood No Growth after 120 hours 05/11/20 09:50 Blood Culture - Preliminary Blood No Growth after 120 hours 05/09/20 22:01 Blood Culture - Final Blood No Growth after 144 hours Assessment and Plan Plan: Assessment: #1. Metastatic adenocarcinoma with large pericardial effusion with early tamponade, status post emergent percutaneous pericardial drain insertion under echo guidance, postop day 1, with immediate removal of 850 ML of bloody pericardial fluid which was sent for analysis, cultures and cytology. There was an additional 50 ML removed from the catheter yesterday evening on 05/10/2020. Pericardial fluid cytology was positive for malignant cells consistent with metastatic adenocarcinoma with nonspecific pattern, with potential primary sheldon rces including upper GI/pancreatic or biliary tract or lung adenocarcinoma #2. Severe dyspnea acute hypoxic respiratory failure related to the above, improved #3. Acute kidney injury, slightly improved on today's labs #4. Mild plasma lactic acidosis, improved #5. History of COPD, with baseline FEV1 of 34% of predicted #6. Long history of smoking, currently in remission for last 3 weeks, carries [id number] smoking history #7. Pulmonary nodules, abdomen followed by Dr. Nicole, and are stable #8. Significant lower extremity edema with no evidence of DVT #9. History of prostate cancer #10. Restless leg syndrome #11. Chronic deafness #12. Pseudomonal pulmonary infection, currently on cefepime Plan: Results of the pericardial fluid cytology were discussed with the patient, we'll continue to follow with medical oncology for completion of the workup to determine primary source of metastatic adenocarcinoma. Continue IV steroids, breathing treatments and antibiotics. Patient is being diuresed. Renal profile stable, nephrology is following, remains on IV Lasix, overall fluid volume status significantly improved since admission. I performed a history & physical examination of the patient and discussed their management with my nurse practitioner, Kandi Saleem. I reviewed the nurse practitioner's note and agree with the documented findings and plan of care. Lung sounds are positive for diminished breath sounds. The findings and the impression was discussed with the patient. I attest to the documentation by the nurse practitioner. Time with Patient: Less than 30
--- NOTE | 2020-05-16 14:10 | P.PN ---
Subjective Progress Note Date: 05/16/20 05/09/2020 74-year-old male patient presented emergency room ambulatory chief complaint of shortness of breath. In ER chest x-ray showed small pleural effusions are essentially new compared to all exam no gross heart failure. He has had a long-standing history of COPD, and noted history of smoking. He quit approximately 3 weeks ago at the onset of current symptoms. He was seen in emergency room for similar complaint earlier in the month and he has been seen in the office twice once for ER follow-up and the other for recheck. From the office he was started on 80 mg of Lasix as well as clarithromycin. With taking medications he stated there was no improvement in his symptoms and his fatigue worsened. He was also ordered a rescue inhaler but had minimal improvement with its use. He denied chest pain, unilateral numbness or weakness, orthopnea. Continue to have bilateral lower extremity peripheral edema. He has no history of hypertension, DVT or PE, denies history of heart failure, does not utilized home O2, denies fever or chills. He he denied cough and arrival in ER. Past medical history of cancer, COPD, heart appearing as related to being in the , prostate disorder, every day smoker up until current sickness. Is also noted to have a right hip. Echocardiogram this morning showed ejection fraction 40-45% with very mild left ventricular hypokinesis. Is also noted to have large global pericardial effusion without tamponade. Appears cardiology was on hand at time of echo and consulted cardiothoracic for evaluation. Dr. Jimenez saw patient in room and performed a percutaneous pericardial drainage with echo guidance in which he 850 ml of bloody pericardial fluid was drained and sent for cytology, LDH, protein, glucose. Venous Doppler duplex lower summary bilaterally was completed today impression showed early to moderate diffuse subcutaneous edema greatest towards the periphery bilaterally without acute DVT in either extremity. Current labs WBC of 19.3, hemoglobin 13.8, hematocrit 42.1, platelet count 214, neutrophils 16.1, monocytes 1.4, PT of 12.8, INR 1.3, d-dimer 1.95. Chemistry revealed a sodium 131, potassium 4.0, chloride 92, bun 97, creatinine of 2.99, lactic acid initially was 3.0 and resuscitated down to 1.9. AST 120, [place] for, initial troponin 0.0-6, which elevated later to 0.083. Most recent chart of vitals afebrile 98.2, pulse rate of 92 normal sinus rhythm, respiratory rate of 22, blood pressure 120/72, oxygen saturation 96% on 2 L nasal cannula. 05/11/2020 worsening shortness of breath, desatted into the 80s, O2 increased from 3 L to 5 L this morning, maintaining O2 sats of 91-92% currently. Nonproductive cough. Pericardial cytology pending. Last night drained approximately 50 MLS and trace drainage this morning .Mild confusion with desaturation. Worsening edema. Chest x-ray reporting increased small pleural effusions with prominent by bibasilar atelectasis/consolidation .Converted from Lasix IV push to Lasix drip. Afebrile, WBC up to 24. Complains of left chest pericardial drain site pain. Renal function is slowly improving, down to 2.35. Potassium 3.2. 05/12/2020 diuresing well on Lasix drip with 24-hour I&O reflecting a negative fluid balance. Maintained on nebulized bronchodilators with the addition of IV steroids. Continues on 5 L nasal cannula, maintaining O2 sats in the 90s. Prod uctive cough with thick yellow sputum, collected for culture. Blood cultures reporting no growth. Pericardial cytology pending. Fluid analysis exudative. WBC trending up, 25.4, afebrile.infectious disease consulted , daptomycin and cefepime initiated.Pain controlled. No drainage from pericardial drain, repeat echo performed this morning reporting trivial pericardial effusion. Renal function improving down to 1.87. Potassium 3.4. 05/15/2020 pericardial fluid cytology reporting metastatic adenocarcinoma. Pericardial drain discontinued over the weekend. Diuresing well on Lasix IV push with 24-hour I&O reflecting a negative fluid balance. Significant clinical improvement. Ambulating, tolerating exertion well. Renal function continues to improve down to 1.7. VSS. Oxygen has been weaned down to 3 L nasal cannula, maintaining O2 sats in the 90s. IS up to 1500. Afebrile, WBC 14.8 on cefepime 05/16/2020 metastatic adenocarcinoma discussed with patient, etiology unclear, possible lungs, upper GI/pancreatic or biliary/colon. Evaluated by oncology with recommendations of completing the workup to determine primary origin. Continues diuresing well on Lasix IV push, tarry same with 24-hour I&O reflecting a negative fluid balance. Creatinine maintained on 1.7. Chest x-ray reporting no significant change from prior studies. Maintaining O2 sats in the 90s on 2 L nasal cannula. IS up to 1500. Afebrile. Objective - Vital Signs Vital signs: Vital Signs Temp 98.3 F 05/16/20 08:00 Pulse 88 05/16/20 09:04 Resp 18 05/16/20 08:00 BP 118/60 05/16/20 08:00 Pulse Ox 97 05/16/20 08:47 Intake & Output 05/15/20 05/16/20 05/16/20 18:59 06:59 18:59 Intake Total 720 480 240 Output Total 200 2825 Balance 520 -2345 240 Weight 88.5 kg Intake: Oral 720 480 240 Output: Urine 200 2825 Other: Voiding Method Urinal Urinal Urinal Diaper Diaper Diaper # Voids 1 # Bowel Movements 0 - Exam GENERAL: Sitting up in chair, no acute distress HEAD: Atraumatic, normocephalic. EYES: Pupils equal round and reactive to light, sclera anicteric, conjunctiva are normal. ENT:nares patent, oropharynx clear without exudates. Oral mucosa moist. NECK: Normal range of motion, supple without lymphadenopathy or JVD, no thyromegaly LUNGS: Breath sounds diminished,occasional minimal expiratory wheezing. HEART: Regular rate and rhythm without murmurs, rubs or gallops.S1S2 Normal. ABDOMEN: Soft, nontender, normoactive bowel sounds. No guarding, no rebound. No masses appreciated. EXTREMITIES: Normal range of motion, decreasing edema. No clubbing or cyanosis. NEUROLOGICAL: Cranial nerves II through XII grossly intact. No focal deficits. PSYCH: Normal mood, normal affect. SKIN: Warm, Dry, normal turgor, no rashes. Microbiology 05/09/20 22:01 Blood Blood Culture - Final No Growth after 144 hours 05/11/20 09:45 Blood Blood Culture - Preliminary No Growth after 96 hours 05/11/20 09:50 Blood Blood Culture - Preliminary No Growth after 96 hours 05/12/20 09:30 Sputum Gram Stain - Final 05/12/20 09:30 Sputum Sputum Culture - Final Pseudomonas aeruginosa - Labs CBC & Chem 7: 05/15/20 06:03 05/16/20 06:01 Labs: Abnormal Lab Results - Last 24 Hours (Table) 05/14/20 05/15/20 05/15/20 Range/Units 16:44 11:40 16:54 Sodium (137-145) mmol/L Chloride (98-107) mmol/L Carbon Dioxide (22-30) mmol/L BUN (9-20) mg/dL Creatinine (0.66-1.25) mg/dL Glucose (74-99) mg/dL POC Glucose (mg/dL) 140 H 190 H (75-99) mg/dL Calcium (8.4-10.2) mg/dL Carcinoembryonic Ag 88.1 H (0.0-4.9) ng/mL 05/15/20 05/16/20 05/16/20 Range/Units 20:14 05:45 06:01 Sodium 135 L (137-145) mmol/L Chloride 95 L (98-107) mmol/L Carbon Dioxide 37 H (22-30) mmol/L BUN 53 H (9-20) mg/dL Creatinine 1.72 H (0.66-1.25) mg/dL Glucose 146 H (74-99) mg/dL POC Glucose (mg/dL) 154 H 148 H (75-99) mg/dL Calcium 7.7 L (8.4-10.2) mg/dL Carcinoembryonic Ag (0.0-4.9) ng/mL Microbiology - Last 24 Hours (Table) 05/09/20 22:01 Blood Culture - Final Blood No Growth after 144 hours 05/11/20 09:45 Blood Culture - Preliminary Blood No Growth after 96 hours 05/11/20 09:50 Blood Culture - Preliminary Blood No Growth after 96 hours Assessment and Plan Assessment: (1) large Pericardial effusion with early cardiac tamponade, status post emergent percutaneous pericardial drain , cytology reporting metastatic adenocarcinoma Current Visit: Yes Status: Acute Code(s): I31.3 - PERICARDIAL EFFUSION (NONINFLAMMATORY) SNOMED Code(s): 094750634 (2) Acute kidney injury, cardiorenal Current Visit: Yes Status: Acute Code(s): N17.9 - ACUTE KIDNEY FAILURE, UNSPECIFIED SNOMED Code(s): 16935107 (3) COPD exacerbation Current Visit: Yes Status: Acute Code(s): J44.1 - CHRONIC OBSTRUCTIVE PULMONARY DISEASE W (ACUTE) EXACERBATION SNOMED Code(s): 550903864 (4) Pneumonia, sputum cultures reporting pseudomonas aeruginosa Current Visit: No Status: Acute Code(s): J18.9 - PNEUMONIA, UNSPECIFIED ORGANISM SNOMED Code(s): 614271153 (5) Shortness of breath Current Visit: Yes Status: Acute Code(s): R06.02 - SHORTNESS OF BREATH SNOMED Code(s): 513308187 (6) Edema, peripheral Current Visit: Yes Status: Acute Code(s): R60.9 - EDEMA, UNSPECIFIED SNOMED Code(s): 189578569 (7) hypokalemia secondary to diuretics (8) lactic acidosis, improved (9) acute metabolic encephalopathy secondary to hypoxia (10) acute hypoxic respiratory failure secondary to #1 (11) nicotine dependence, [id number] ,quit smoking 2 weeks ago (12) Lung nodules, being followed outpatient with Dr. Nicole (13) history of prostate cancer, skin cancer (14) chronic deafness (15) leukocytosis, possibly secondary to sepsis related to #1 (16) oral candidasis Plan: Continue on current medication regime ,monitoring and symptomatic treatment. Evaluated by oncology, workup initiated to identify primary. Discussed further workup with abdominal MRI, EGD/colonoscopy .also there is some concern for possibly recurrent pericardial effusion ,potentially needing a pericardial window .nephrology discussing tapering diuretics tomorrow .Antibiotics/cefepime as per Infectious disease.Close monitoring of renal function,electrolytes with repeat labs ordered for a.m. Prognosis guarded given multiple complex medical issues. The impression and plan of care has been dictated as directed. : I performed a history and examination of this patient, discussed the same with the dictator. I agree with the dictator's note ,documented as a scribe. Any additional findings or plans will be noted.
--- NOTE | 2020-05-16 14:30 | P.PN ---
Subjective Progress Note Date: 05/16/20 This is a 74-year-old gentleman with documented history of COPD, he also has a history of smoking for several years, he quit 2 weeks ago. He is being also worked up as an outpatient for some lung nodules by pulmonary care. No documented history of hypertension, he is a nondiabetic, no hyperlipidemia. He presents to the hospital with symptoms of progressively worsening shortness of breath over a 2 week duration. Up until that time patient was quite active, was still golfing without any difficulties. His chest x-ray on presentation here showed a left sided pleural effusion, EKG normal sinus rhythm with no acute changes noted. Blood pressure 125/68, heart rate in the 80s, respirations 18, 95% on 2 L of oxygen. Venous duplex study was performed which was negative for DVT. White blood cell count 19.3, hemoglobin 13.8, platelet count 214. D-dimer 1.9, sodium 131, potassium 4.0, BUN 97, creatinine 2.9. Of note, patient's creatinine on the fourth of this month 1.2. Plasma lactic acid on admission 3.0, AST 120, ALT 204, alk phos 65, BNP level 818. Troponin 0.026, 0.028. At the time of my examination patient was quite short of breath, having to sit up straight in bed to be able to breathe, elevated jugular venous pressure to the angle of the jaw. Significant bilateral peripheral edema. A stat echocardiogram with Doppler study was requested, the echo was being performed while Dr. Ventura was in the room and it was noted that the patient had a large size pericardial effusion. Cardiothoracic surgery has been consulted to see the patient for possible pericardiocentesis. 05/15/20 Patient did subsequently this day of our consultation undergo a pericardiocentesis, the results of the pericardial fluid are yet pending. Hemodynamically the patient is stable. Blood pressure 105/60 with a heart rate in the 80s, 94% on room air. White blood cell count 14.8, hemoglobin 12.4, platelet count 129. Sodium 134, potassium 3.7, BUN 59 and creatinine 1.7. 05/16/2020 Patient was seen and examined this morning, still mildly short of breath but overall feeling okay. The pericardial fluid cytology showed malignant cells consistent with metastatic adenocarcinoma with unknown primary. Medical oncology has been consulted and has spoke with the patient as have the pulmon ology group. Hemodynamically the patient is doing well, pulse ox is 97% on 2 L. Blood pressure 115/67 with a heart rate in the 70s, 92% on 2 L of oxygen. Sodium 135, potassium 3.6, BUN 53 creatinine 1.7 magnesium 2.2. Objective - Vital Signs Vital signs: Vital Signs Temp 98.1 F 05/16/20 12:00 Pulse 72 05/16/20 12:00 Resp 19 05/16/20 12:00 BP 115/67 05/16/20 12:00 Pulse Ox 92 L 05/16/20 12:00 Intake & Output 05/15/20 05/16/20 05/16/20 18:59 06:59 18:59 Intake Total 720 480 240 Output Total 200 2825 50 Balance 520 -2345 190 Weight 88.5 kg Intake: Oral 720 480 240 Output: Urine 200 2825 50 Other: Voiding Method Urinal Urinal Urinal Diaper Diaper Diaper # Voids 1 1 # Bowel Movements 0 - Exam GENERAL EXAM: Alert, very pleasant, 74-year-old gentleman, on 3 L of oxygen with a pulse ox of 94%, comfortable in no apparent distress. HEAD: Normocephalic/atraumatic. EYES: Normal reaction of pupils, equal size. Conjunctiva pink, sclera white. NOSE: Clear with pink turbinates. THROAT: No erythema or exudates. NECK: No masses, no JVD, no thyroid enlargement, no adenopathy. CHEST: No chest wall deformity. Symmetrical expansion. Anterior left chest triple-lumen catheter removed. LUNGS: Equal air entry with few scattered rhonchi, basilar crackles. CVS: Regular rate and rhythm, normal S1 and S2, no gallops, no murmurs, no rubs ABDOMEN: Soft, nontender. No hepatosplenomegaly, normal bowel sounds, no guarding or rigidity. EXTREMITIES: No clubbing, no edema, no cyanosis, 2+ pulses and upper and lower extremities. MUSCULOSKELETAL: Muscle strength and tone normal. SPINE: No scoliosis or deformity SKIN: No rashes CENTRAL NERVOUS SYSTEM: No focal deficits, tone is normal in all 4 extremities. PSYCHIATRIC: Alert and oriented -3. Appropriate affect. Intact judgment and insight. - Labs CBC & Chem 7: 05/15/20 06:03 05/16/20 06:01 Labs: Abnormal Lab Results - Last 24 Hours (Table) 05/14/20 05/15/20 05/15/20 Range/Units 16:44 16:54 20:14 Sodium (137-145) mmol/L Chloride (98-107) mmol/L Carbon Dioxide (22-30) mmol/L BUN (9-20) mg/dL Creatinine (0.66-1.25) mg/dL Glucose (74-99) mg/dL POC Glucose (mg/dL) 190 H 154 H (75-99) mg/dL Calcium (8.4-10.2) mg/dL Carcinoembryonic Ag 88.1 H (0.0-4.9) ng/mL 05/16/20 05/16/20 05/16/20 Range/Units 05:45 06:01 12:23 Sodium 135 L (137-145) mmol/L Chloride 95 L (98-107) mmol/L Carbon Dioxide 37 H (22-30) mmol/L BUN 53 H (9-20) mg/dL Creatinine 1.72 H (0.66-1.25) mg/dL Glucose 146 H (74-99) mg/dL POC Glucose (mg/dL) 148 H 136 H (75-99) mg/dL Calcium 7.7 L (8.4-10.2) mg/dL Carcinoembryonic Ag (0.0-4.9) ng/mL Microbiology - Last 24 Hours (Table) 05/11/20 09:45 Blood Culture - Preliminary Blood No Growth after 120 hours 05/11/20 09:50 Blood Culture - Preliminary Blood No Growth after 120 hours 05/09/20 22:01 Blood Culture - Final Blood No Growth after 144 hours Assessment and Plan Plan: Assessment and plan #1 large pericardial effusion, status post pericardiocentesis, 850 mL of bloody fluid was removed and sent for analysis, analysis revealed metastatic adenocarcinoma with nonspecific pattern, potential primary source including upper GI/pancreatic/biliary tract/lung adenocarcinoma. #2 Hx of COPD #3 Lung nodules, being followed as an outpatient by Dr. Nicole #4 nicotine dependence, patient quit smoking 2 weeks ago #5 history of prostate and skin cancer #6 acute renal insufficiency, likely secondary to diuresis Plan Patient continues to be on IV Lasix , IV steroids, breathing treatments and antibiotics. We will follow this patient along with you now on an as-needed basis only, please don't hesitate to call with any questions. DNP note has been reviewed, I agree with a documented findings and plan of care. Patient was seen and examined.
[2020-05-16 16:52] LABS: Glucose,Whole Blood 128 mg/dL (75-99)
--- NOTE | 2020-05-16 17:13 | P.CONS ---
History of Present Illness - Reason for Consult Consult date: 05/16/20 Metastatic Adenocarcinoma with large pericardial effusion Requesting physician: Kandi Saleem - Chief Complaint SOB - History of Present Illness Mr. Lewis us a 74-year-old male patient who presented emergency room on 05/09/20 with complaint of shortness of breath. In ER chest x-ray showed new small pleural effusions He has known history of COPD, and noted history of smoking. He quit a few weeks ago at the onset of current symptoms. He was seen in emergency room for similar complaint earlier in the month and he has been seen in the office twice once for ER follow-up and the other for recheck.Treatment with lasix during these visits resulted without improvements, He also presented with BLE edema. . Echocardiogram this morning showed ejection fraction 40-45% with very mild left ventricular hypokinesis. Is also noted to have large global pericardial effusion without tamponade. Appears cardiology was on hand at time of echo and consulted cardiothoracic for evaluation. On 05/10/20 Dr. Jimenez saw patient in room and performed a percutaneous pericardial drainage with echo guidance in which he 850 ml of bloody pericardial fluid was drained and sent for cytology, LDH, protein, glucose. Venous Doppler duplex lower summary bilaterally was completed today impression showed early to moderate diffuse subcutaneous edema greatest towards the periphery bilaterally without acute DVT in either extremity. Cytology resulted from pericardial effusion with metastatic adenocarcinoma, therefore medical oncology has been asked to further evaluate. Dr. Trejo has seen and examined patient this am. Patient appears to have had a history of prostate cancer in past. Also abnormal nodules in lung that were not pet avid. He underwent radical prostatectomy in February 2019. 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 History of Any Multi-Drug Resistant Organisms: None Reported Past Surgical History: Joint Replacement Additional Past Surgical History / Comment(s): rt hip replacement Past Anesthesia/Blood Transfusion Reactions: No Reported Reaction Additional Past Anesthesia/Blood Transfusion Reaction / Comm: Claustrophobic. Past Psychological History: No Psychological Hx Reported Smoking Status: Current every day smoker Past Alcohol Use History: None Reported, Heavy Past Drug Use History: None Reported - Past Family History Mother Family Medical History: Cancer Additional Family Medical History / Comment(s): breast cancer Medications and Allergies Home Medications Medication Instructions Recorded Confirmed Type Melatonin 10 mg PO HS PRN 03/01/19 05/09/20 History Multivitamin [Multivitamins Adult 1 tab PO DAILY 03/01/19 05/09/20 History Gummies] Umeclidinium Brm/Vilanterol Tr 1 puff INHALATION RT-DAILY 03/01/19 05/09/20 History [Anoro Ellipta 62.5-25 Mcg INH] clonazePAM [KlonoPIN] 0.5 mg PO HS 03/01/19 05/09/20 History Albuterol Inhaler [Ventolin Hfa 2 puff INHALATION RT-QID #2 puff 04/27/20 Rx Inhaler] Albuterol Nebulized [Ventolin 2.5 mg INHALATION RT-QID 05/09/20 05/09/20 History Nebulized] Clarithromycin [Biaxin] 500 mg PO BID 05/09/20 05/09/20 History Furosemide [Lasix] 80 mg PO DAILY 05/09/20 05/09/20 History Allergies Allergy/AdvReac Type Severity Reaction Status Date / Time Sulfa (Sulfonamide Allergy Unknown Rash/Hives Verified 05/09/20 22:32 Antibiotics) tetracycline Allergy Unknown UNKNOWN- Verified 05/09/20 22:32 TAKEN FROM OR BOARDING SHEET. Physical Exam Vitals: Vital Signs Temp Pulse Pulse Resp BP Pulse Ox 05/16/20 15:45 90 18 05/16/20 15:33 92 18 05/16/20 15:31 98.2 F 75 18 128/65 93 L 05/16/20 12:00 98.1 F 72 19 115/67 92 L 05/16/20 11:54 85 05/16/20 11:42 85 05/16/20 09:04 88 05/16/20 08:47 87 97 05/16/20 08:00 98.3 F 79 18 118/60 95 05/16/20 04:00 98.0 F 70 18 106/55 94 L 05/16/20 00:00 97.8 F 74 18 112/61 95 05/15/20 21:06 90 05/15/20 20:45 88 05/15/20 20:00 98.0 F 75 18 107/58 93 L 05/15/20 17:09 88 05/15/20 16:56 88 Intake and Output 05/16/20 05/16/20 05/16/20 06:59 14:59 22:59 Intake Total 480 560 Output Total 875 825 Balance -395 -265 Intake: Oral 480 560 Output: Urine 875 825 Other: Voiding Method Urinal Urinal Urinal Diaper Diaper Diaper # Voids 1 Weight 88.5 kg - Constitutional General appearance: cooperative, no acute distress - EENT Eyes: PERRLA, poor dentition, normal appearance ENT: hearing grossly normal, normal oropharynx - Respiratory Respiratory: bilateral: diminished (mild increased effort) - Cardiovascular Rhythm: regular Heart sounds: normal: S1, S2 leg Peripheral Edema: bilateral: 3+ - Gastrointestinal General gastrointestinal: soft, tenderness - Integumentary Integumentary: pale - Neurologic Neurologic: CNII-XII intact - Musculoskeletal Musculoskeletal: generalized weakness - Psychiatric Psychiatric: A&O x's 3, appropriate affect, intact judgment & insight Results CBC & Chem 7: 05/15/20 06:03 05/16/20 06:01 Labs: Abnormal Lab Results - Last 24 Hours (Table) 05/14/20 05/15/20 05/15/20 Range/Units 16:44 16:54 20:14 Sodium (137-145) mmol/L Chloride (98-107) mmol/L Carbon Dioxide (22-30) mmol/L BUN (9-20) mg/dL Creatinine (0.66-1.25) mg/dL Glucose (74-99) mg/dL POC Glucose (mg/dL) 190 H 154 H (75-99) mg/dL Calcium (8.4-10.2) mg/dL Carcinoembryonic Ag 88.1 H (0.0-4.9) ng/mL 05/16/20 05/16/20 05/16/20 Range/Units 05:45 06:01 12:23 Sodium 135 L (137-145) mmol/L Chloride 95 L (98-107) mmol/L Carbon Dioxide 37 H (22-30) mmol/L BUN 53 H (9-20) mg/dL Creatinine 1.72 H (0.66-1.25) mg/dL Glucose 146 H (74-99) mg/dL POC Glucose (mg/dL) 148 H 136 H (75-99) mg/dL Calcium 7.7 L (8.4-10.2) mg/dL Carcinoembryonic Ag (0.0-4.9) ng/mL Microbiology - Last 24 Hours (Table) 05/11/20 09:45 Blood Culture - Preliminary Blood No Growth after 120 hours 05/11/20 09:50 Blood Culture - Preliminary Blood No Growth after 120 hours 05/09/20 22:01 Blood Culture - Final Blood No Growth after [address] scan - chest: report reviewed Assessment and Plan (1) History of prostate cancer Current Visit: Yes Status: Acute Code(s): Z85.46 - PERSONAL HISTORY OF MALIGNANT NEOPLASM OF PROSTATE SNOMED Code(s): 257567445 (2) Adenocarcinoma Current Visit: Yes Status: Acute Code(s): C80.1 - MALIGNANT (PRIMARY) KAVITA PLASM, UNSPECIFIED SNOMED Code(s): 471373186 (3) Acute kidney injury Current Visit: Yes Status: Acute Code(s): N17.9 - ACUTE KIDNEY FAILURE, UNSPECIFIED SNOMED Code(s): 94385107 (4) Edema of both lower extremities due to peripheral venous insufficiency Current Visit: Yes Status: Acute Code(s): I87.2 - VENOUS INSUFFICIENCY (CHRONIC) (PERIPHERAL) SNOMED Code(s): 00016811587603197 (5) Pericardial effusion without cardiac tamponade Current Visit: Yes Status: Acute Code(s): I31.3 - PERICARDIAL EFFUSION (NONINFLAMMATORY) SNOMED Code(s): 950880969 Plan: Assessment and recommendations: Malignant Pericardial Effusion: - Status Post Pericardial Effusion 850cc off on 05/09/20 positive cytology for adenocarcinoma - Primary site not currently known History of prostate Cancer in 02/2019 with radical prostatectomy - Check PSA Renal Insufficiency Increased LFTs Tobacco Abuse Plan: - Unable to perform contrasted CT abdomen and pelvis - Will stage MRI brain, Liver and pancreas - Check PSA for possible progressive/Recurrent prostate cancer - Monitor CBC, CMP - Will Need pericardial window per CTS Thank you for this consult Physician attest: I have completed the full history and physical and agree with above dictation, dictated as a scribe.
[2020-05-16 20:19] LABS: Glucose,Whole Blood 224 mg/dL (75-99)
[2020-05-16] MEDS: clonazePAM 0.5 MG TAB PO SCH (21:33)
[2020-05-16] MEDS: MELATONIN 5 MG TABLET PO SCH (21:43)
[2020-05-16 22:30] LABS: Glucose,Whole Blood 246 mg/dL (75-99)
[2020-05-16] MEDS: SODIUM CHLORIDE 0.9% 1,000 ML IV SCH (23:51)
--- NOTE | 2020-05-16 23:52 | PN ---
PROGRESS NOTE DATE OF SERVICE: 05/16/2020 REASON FOR FOLLOWUP: Leukocytosis and possible Pseudomonas pneumonia. INTERVAL HISTORY: The patient are currently afebrile. The patient is breathing more comfortably. The patient denies having any chest pain. He did have some cough but no sputum production. No nausea, no vomiting. No abdominal pain or diarrhea. PHYSICAL EXAMINATION: Blood pressure is 109/57 with a pulse of 81, temperature 98. He is 94% on 2 L nasal cannula. General description is an elderly male up in the bed in no distress. RESPIRATORY SYSTEM: Unlabored breathing, decreased intensity of breath sounds. No wheeze. HEART: S1, S2. Regular rate and rhythm. ABDOMEN: Soft, no tenderness. LABS: Hemoglobin is 12.4, white count 14.8. DIAGNOSTIC IMPRESSION AND PLAN: Patient with leukocytosis, likely multifactorial in this patient who did show overall improvement initially, however, has slight stalling of his white count more likely because of steroids the patient is currently on. He grew Pseudomonas in the sputum for which the patient currently on cefepime to continue with the plan to finish therapy with oral antibiotic on discharge. Continue with supportive care. MMODL / IJN: [id number] /
[2020-05-17 06:12] LABS: Basophils % (A) 0 %; Eosinophils % (A) 0 %; HGB 13.7 gm/dL (13.0-17.5); Hypochromasia Moderate; Lymphocytes # (A) 0.4 k/uL (1.0-4.8); Lymphocytes % (A) 3 %; MCH 32.1 pg (25.0-35.0); MCHC 31.2 g/dL (31.0-37.0); Macrocytosis Slight; Mean Platelet Volume 8.5; Monocytes # (A) 0.7 k/uL (0-1.0); Monocytes % (A) 5 %; Neutrophils # (A) 14.3 k/uL (1.3-7.7); Neutrophils % (A) 92 %; Platelet Count 139 k/uL (150-450); RBC 4.27 m/uL (4.30-5.90); RDW 13.5 % (11.5-15.5); WBC 15.6 k/uL (3.8-10.6)
[2020-05-17 06:12] LABS: Glucose,Whole Blood 107 mg/dL (75-99)
[2020-05-17 06:20] LABS: Albumin 2.5 g/dL (3.5-5.0); Calcium 7.9 mg/dL (8.4-10.2); Magnesium 2.3 mg/dL (1.6-2.3); Phosphorus 3.4 mg/dL (2.5-4.5); Potassium 4.3 mmol/L (3.5-5.1); Total Bilirubin 0.8 mg/dL (0.2-1.3); Total Protein 4.8 g/dL (6.3-8.2)
[2020-05-17] MEDS: IPRATROPIUM-ALBUTEROL 3 ML NEB INHALATION SCH ×4 (07:05→19:36)
[2020-05-17] MEDS: SYMBICORT 160-4.5 MCG INHALER INHALATION SCH ×2 (07:16→19:36)
[2020-05-17] MEDS: INSULIN ASPART (NovoLOG) 100 UNIT/ML VIAL SQ SCH ×4 (09:17→22:10)
[2020-05-17] MEDS: FUROSEMIDE 10 MG/ML 4 ML VIAL IV SCH ×3 (09:34→23:58)
[2020-05-17] MEDS: PANTOPRAZOLE 40 MG TABLET PO SCH (09:34)
[2020-05-17] MEDS: DOCUSATE 100 MG CAP PO SCH ×2 (09:34→22:08)
[2020-05-17] MEDS: METOPROLOL TARTRATE 25 MG TAB PO SCH ×2 (09:34→16:36)
[2020-05-17] MEDS: methylPREDNISolone SOD SUCCI 40 MG/ML 1 ML VIAL IV SCH ×3 (09:34→23:58)
[2020-05-17] MEDS: acetaZOLAMIDE 250 MG TAB PO SCH ×2 (09:34→22:08)
[2020-05-17] MEDS: SENNOSIDES-DOCUSATE SODIUM 1 EACH TAB PO SCH ×2 (09:34→22:08)
[2020-05-17] MEDS: CEFEPIME 2 GM in SODIUM CHLORIDE 0.9% 100 ML IVPB SCH ×2 (09:35→22:09)
[2020-05-17] MEDS: NYSTATIN 100,000 UNIT/ML SUSP 500,000 UNIT/5 ML CUP PO SCH ×4 (09:46→22:08)
[2020-05-17] MEDS ORDERED: PEG 3350-NA SULF,BICARB,CL/KCL 4,000 ML BOTTLE PO ONE (10:10)
--- NOTE | 2020-05-17 10:20 | P.GSCN ---
<Felicity Espino - Last Filed: 05/17/20 10:20> History of Present Illness Consult date: 05/17/20 Reason for Consult: EGD/colonoscopy History of present illness: CHIEF COMPLAINT: EGD/colonoscopy HISTORY OF PRESENT ILLNESS: 74-year-old male who presented to emergency room with a chief complaint of shortness of breath. Patient was found to have a large pericardial effusion with early tamponade. He underwent drainage of 850 mL pericardial fluid. Cytology revealed metastatic adenocarcinoma of unknown primary origin. Patient does have a history of prostate cancer and underwent a robotic prostatectomy in 2019. Patient reports his last colonoscopy was 2 or [address] Marroquin and states it was "normal". He is unable to recall if there is any family history of colon cancer. PAST MEDICAL HISTORY: See list. PAST SURGICAL HISTORY: See list. SOCIAL HISTORY: No illicit drug use. REVIEW OF SYSTEMS: CONSTITUTIONAL: Denies fever or chills. HEENT: Denies blurred vision, vision changes, or eye pain. Denies hemoptysis CARDIOVASCULAR: Denies chest pain or pressure. RESPIRATORY: Mild shortness of breath. GASTROINTESTINAL: Denies abdominal pain. Denies nausea or vomiting. HEMATOLOGIC: Denies bleeding disorders. GENITOURINARY: Denies any blood in urine. SKIN: Denies pruitis. Denies rash. PHYSICAL EXAM: VITAL SIGNS: Reviewed. GENERAL: Well-developed in no acute distress. HEENT: No sclera icterus. Extraocular movements grossly intact. Moist buccal mucosa. Head is atraumatic, normocephalic. ABDOMEN: Soft. Nondistended. Nontender. NEUROLOGIC: Alert and oriented. Cranial nerves II through XII grossly intact. LABORATORY DATA: WBC 15.6. Hemoglobin 13.7. Platelet count 139. Sodium 136. Potassium 4.3. BUN 51. Creatinine 1.62. IMAGING: Chest x-ray: Cardiomegaly and chronic emphysematous changes with small bilateral pleural effusions and associated bibasilar atelectasis and/or infiltrates. ASSESSMENT: 1. 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 NPO at midnight -GoLYTELY bowel prep today -EGD/colonoscopy will be scheduled for tomorrow with Dr. Marroquin Nurse practitioner note has been reviewed by physician. Signing provider agrees with the documented findings, assessment, and plan of care. 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 History of Any Multi-Drug Resistant Organisms: None Reported Past Surgical History: Joint Replacement Additional Past Surgical History / Comment(s): rt hip replacement Past Anesthesia/Blood Transfusion Reactions: No Reported Reaction Additional Past Anesthesia/Blood Transfusion Reaction / Comm: Claustrophobic. Past Psychological History: No Psychological Hx Reported Smoking Status: Current every day smoker Past Alcohol Use History: None Reported, Heavy Past Drug Use History: None Reported - Past Family History Mother Family Medical History: Cancer Additional Family Medical History / Comment(s): breast cancer Medications and Allergies Home Medications Medication Instructions Recorded Confirmed Type Melatonin 10 mg PO HS PRN 03/01/19 05/09/20 History Multivitamin [Multivitamins Adult 1 tab PO DAILY 03/01/19 05/09/20 History Gummies] Umeclidinium Brm/Vilanterol Tr 1 puff INHALATION RT-DAILY 03/01/19 05/09/20 History [Anoro Ellipta 62.5-25 Mcg INH] clonazePAM [KlonoPIN] 0.5 mg PO HS 03/01/19 05/09/20 History Albuterol Inhaler [Ventolin Hfa 2 puff INHALATION RT-QID #2 puff 04/27/20 05/09/20 Rx Inhaler] Albuterol Nebulized [Ventolin 2.5 mg INHALATION RT-QID 05/09/20 05/09/20 History Nebulized] Clarithromycin [Biaxin] 500 mg PO BID 05/09/20 05/09/20 History Furosemide [Lasix] 80 mg PO DAILY 05/09/20 05/09/20 History Allergies Allergy/AdvReac Type Severity Reaction Status Date / Time Sulfa (Sulfonamide Allergy Unknown Rash/Hives Verified 05/09/20 22:32 Antibiotics) tetracycline Allergy Unknown UNKNOWN- Verified 05/09/20 22:32 TAKEN FROM OR BOARDING SHEET. Surgical - Exam Vital Signs Temp Pulse Resp BP Pulse Ox 97.8 F 93 28 H 110/74 94 L 05/09/20 21:58 05/09/20 21:58 05/09/20 21:58 05/09/20 21:58 05/09/20 21:58 Results - Labs 05/17/20 05:30 05/17/20 05:30 Abnormal Lab Results - Last 24 Hours (Table) 05/16/20 05/16/20 05/16/20 Range/Units 12:23 16:50 20:17 WBC (3.8-10.6) k/uL RBC (4.30-5.90) m/uL MCV (80.0-100.0) fL Plt Count (150-450) k/uL Neutrophils # (1.3-7.7) k/uL Lymphocytes # (1.0-4.8) k/uL Sodium (137-145) mmol/L Carbon Dioxide (22-30) mmol/L BUN (9-20) mg/dL Creatinine (0.66-1.25) mg/dL Glucose (74-99) mg/dL POC Glucose (mg/dL) 136 H 128 H 224 H (75-99) mg/dL Calcium (8.4-10.2) mg/dL ALT (4-49) U/L Lactate Dehydrogenase (313-618) U/L Total Protein (6.3-8.2) g/dL Albumin (3.5-5.0) g/dL 05/16/20 05/17/20 05/17/20 Range/Units 22:26 05:30 05:30 WBC 15.6 H (3.8-10.6) k/uL RBC 4.27 L (4.30-5.90) m/uL MCV 103.0 H (80.0-100.0) fL Plt Count 139 L (150-450) k/uL Neutrophils # 14.3 H (1.3-7.7) k/uL Lymphocytes # 0.4 L (1.0-4.8) k/uL Sodium 136 L (137-145) mmol/L Carbon Dioxide 36 H (22-30) mmol/L BUN 51 H (9-20) mg/dL Creatinine 1.62 H (0.66-1.25) mg/dL Glucose 101 H (74-99) mg/dL POC Glucose (mg/dL) 246 H (75-99) mg/dL Calcium 7.9 L (8.4-10.2) mg/dL ALT 85 H (4-49) U/L Lactate Dehydrogenase 823 H (313-618) U/L Total Protein 4.8 L (6.3-8.2) g/dL Albumin 2.5 L (3.5-5.0) g/dL 05/17/20 Range/Units 06:10 WBC (3.8-10.6) k/uL RBC (4.30-5.90) m/uL MCV (80.0-100.0) fL Plt Count (150-450) k/uL Neutrophils # (1.3-7.7) k/uL Lymphocytes # (1.0-4.8) k/uL Sodium (137-145) mmol/L Carbon Dioxide (22-30) mmol/L BUN (9-20) mg/dL Creatinine (0.66-1.25) mg/dL Glucose (74-99) mg/dL POC Glucose (mg/dL) 107 H (75-99) mg/dL Calcium (8.4-10.2) mg/dL ALT (4-49) U/L Lactate Dehydrogenase (313-618) U/L Total Protein (6.3-8.2) g/dL Albumin (3.5-5.0) g/dL Microbiology - Last 24 Hours (Table) 05/11/20 09:45 Blood Culture - Preliminary Blood No Growth after 120 hours 05/11/20 09:50 Blood Culture - Preliminary Blood No Growth after 120 hours Diabetes panel 05/17/20 Range/Units 05:30 Sodium 136 L (137-145) mmol/L Potassium 4.3 (3.5-5.1) mmol/L Chloride 99 (98-107) mmol/L Carbon Dioxide 36 H (22-30) mmol/L BUN 51 H (9-20) mg/dL Creatinine 1.62 H (0.66-1.25) mg/dL Glucose 101 H (74-99) mg/dL Calcium 7.9 L (8.4-10.2) mg/dL AST 38 (17-59) U/L ALT 85 H (4-49) U/L Alkaline Phosphatase 64 (38-126) U/L Total Protein 4.8 L (6.3-8.2) g/dL Albumin 2.5 L (3.5-5.0) g/dL Calcium panel 05/17/20 Range/Units 05:30 Calcium 7.9 L (8.4-10.2) mg/dL Phosphorus 3.4 (2.5-4.5) mg/dL Albumin 2.5 L (3.5-5.0) g/dL Pituitary panel 05/17/20 Range/Units 05:30 Sodium 136 L (137-145) mmol/L Potassium 4.3 (3.5-5.1) mmol/L Chloride 99 (98-107) mmol/L Carbon Dioxide 36 H (22-30) mmol/L BUN 51 H (9-20) mg/dL Creatinine 1.62 H (0.66-1.25) mg/dL Glucose 101 H (74-99) mg/dL Calcium 7.9 L (8.4-10.2) mg/dL Adrenal panel 05/17/20 Range/Units 05:30 Sodium 136 L (137-145) mmol/L Potassium 4.3 (3.5-5.1) mmol/L Chloride 99 (98-107) mmol/L Carbon Dioxide 36 H (22-30) mmol/L BUN 51 H (9-20) mg/dL Creatinine 1.62 H (0.66-1.25) mg/dL Glucose 101 H (74-99) mg/dL Calcium 7.9 L (8.4-10.2) mg/dL Total Bilirubin 0.8 (0.2-1.3) mg/dL AST 38 (17-59) U/L ALT 85 H (4-49) U/L Alkaline Phosphatase 64 (38-126) U/L Total Protein 4.8 L (6.3-8.2) g/dL Albumin 2.5 L (3.5-5.0) g/dL <Corby Marroquin - Last Filed: 05/17/20 11:29> History of Present Illness History of present illness: As above. Patient with recent findings of metastatic adenocarcinoma. Await findings of MRI today. Plan upper and lower endoscopy tomorrow. Surgical - Exam Vital Signs Temp Pulse Resp BP Pulse Ox 97.8 F 93 28 H 110/74 94 L 05/09/20 21:58 05/09/20 21:58 05/09/20 21:58 05/09/20 21:58 05/09/20 21:58 Results - Labs 05/17/20 05:30 05/17/20 05:30 Abnormal Lab Results - Last 24 Hours (Table) 05/16/20 05/16/20 05/16/20 Range/Units 12:23 16:50 20:17 WBC (3.8-10.6) k/uL RBC (4.30-5.90) m/uL MCV (80.0-100.0) fL Plt Count (150-450) k/uL Neutrophils # (1.3-7.7) k/uL Lymphocytes # (1.0-4.8) k/uL Sodium (137-145) mmol/L Carbon Dioxide (22-30) mmol/L BUN (9-20) mg/dL Creatinine (0.66-1.25) mg/dL Glucose (74-99) mg/dL POC Glucose (mg/dL) 136 H 128 H 224 H (75-99) mg/dL Calcium (8.4-10.2) mg/dL ALT (4-49) U/L Lactate Dehydrogenase (313-618) U/L Total Protein (6.3-8.2) g/dL Albumin (3.5-5.0) g/dL 05/16/20 05/17/20 05/17/20 Range/Units 22:26 05:30 05:30 WBC 15.6 H (3.8-10.6) k/uL RBC 4.27 L (4.30-5.90) m/uL MCV 103.0 H (80.0-100.0) fL Plt Count 139 L (150-450) k/uL Neutrophils # 14.3 H (1.3-7.7) k/uL Lymphocytes # 0.4 L (1.0-4.8) k/uL Sodium 136 L (137-145) mmol/L Carbon Dioxide 36 H (22-30) mmol/L BUN 51 H (9-20) mg/dL Creatinine 1.62 H (0.66-1.25) mg/dL Glucose 101 H (74-99) mg/dL POC Glucose (mg/dL) 246 H (75-99) mg/dL Calcium 7.9 L (8.4-10.2) mg/dL ALT 85 H (4-49) U/L Lactate Dehydrogenase 823 H (313-618) U/L Total Protein 4.8 L (6.3-8.2) g/dL Albumin 2.5 L (3.5-5.0) g/dL 05/17/20 Range/Units 06:10 WBC (3.8-10.6) k/uL RBC (4.30-5.90) m/uL MCV (80.0-100.0) fL Plt Count (150-450) k/uL Neutrophils # (1.3-7.7) k/uL Lymphocytes # (1.0-4.8) k/uL Sodium (137-145) mmol/L Carbon Dioxide (22-30) mmol/L BUN (9-20) mg/dL Creatinine (0.66-1.25) mg/dL Glucose (74-99) mg/dL POC Glucose (mg/dL) 107 H (75-99) mg/dL Calcium (8.4-10.2) mg/dL ALT (4-49) U/L Lactate Dehydrogenase (313-618) U/L Total Protein (6.3-8.2) g/dL Albumin (3.5-5.0) g/dL Microbiology - Last 24 Hours (Table) 05/11/20 09:45 Blood Culture - Preliminary Blood No Growth after 120 hours 05/11/20 09:50 Blood Culture - Preliminary Blood No Growth after 120 hours Diabetes panel 05/17/20 Range/Units 05:30 Sodium 136 L (137-145) mmol/L Potassium 4.3 (3.5-5.1) mmol/L Chloride 99 (98-107) mmol/L Carbon Dioxide 36 H (22-30) mmol/L BUN 51 H (9-20) mg/dL Creatinine 1.62 H (0.66-1.25) mg/dL Glucose 101 H (74-99) mg/dL Calcium 7.9 L (8.4-10.2) mg/dL AST 38 (17-59) U/L ALT 85 H (4-49) U/L Alkaline Phosphatase 64 (38-126) U/L Total Protein 4.8 L (6.3-8.2) g/dL Albumin 2.5 L (3.5-5.0) g/dL Calcium panel 05/17/20 Range/Units 05:30 Calcium 7.9 L (8.4-10.2) mg/dL Phosphorus 3.4 (2.5-4.5) mg/dL Albumin 2.5 L (3.5-5.0) g/dL Pituitary panel 05/17/20 Range/Units 05:30 Sodium 136 L (137-145) mmol/L Potassium 4.3 (3.5-5.1) mmol/L Chloride 99 (98-107) mmol/L Carbon Dioxide 36 H (22-30) mmol/L BUN 51 H (9-20) mg/dL Creatinine 1.62 H (0.66-1.25) mg/dL Glucose 101 H (74-99) mg/dL Calcium 7.9 L (8.4-10.2) mg/dL Adrenal panel 05/17/20 Range/Units 05:30 Sodium 136 L (137-145) mmol/L Potassium 4.3 (3.5-5.1) mmol/L Chloride 99 (98-107) mmol/L Carbon Dioxide 36 H (22-30) mmol/L BUN 51 H (9-20) mg/dL Creatinine 1.62 H (0.66-1.25) mg/dL Glucose 101 H (74-99) mg/dL Calcium 7.9 L (8.4-10.2) mg/dL Total Bilirubin 0.8 (0.2-1.3) mg/dL AST 38 (17-59) U/L ALT 85 H (4-49) U/L Alkaline Phosphatase 64 (38-126) U/L Total Protein 4.8 L (6.3-8.2) g/dL Albumin 2.5 L (3.5-5.0) g/dL
[2020-05-17 12:05] LABS: % Iron Saturation 70.87 (15.00-50.00)
[2020-05-17 12:21] LABS: Ferritin 405.8 ng/mL (22.0-322.0)
[2020-05-17] MEDS: LORazepam 2 MG/ML INJ IV PRN (12:59)
--- NOTE | 2020-05-17 13:55 | P.PN ---
Subjective Progress Note Date: 05/17/20 Principal diagnosis: Shortness of breath, large pericardial effusion with early tamponade, acute kidney injury Patient was seen and reevaluated today on 05/11/2020 on selective care unit, patient is status post urgent percutaneous pericardial drain insertion under echocardiogram guidance by cardiothoracic surgery, with the removal of over 850 mL of bloody drainage immediately, and additional 50 ML of bloody drainage last night. His breathing has improved although he feels like he can't take a full breath related to sharp pain in the chest when he takes a deep breath. Also he states he may have waited too long to ask for pain medication. Otherwise appears to be in no acute distress. This morning he is on 2 L of oxygen with pulse ox of 92%, blood pressure is 120/65, no tachycardia, heart rate is 86 BPM, mild tachypnea, but afebrile. Pericardial fluid cytology is pending. Patient remains on IV Lasix at 40 mg every 12 hours, he is in -2.7 L net fluid balance over the last 24 hours, repeat echocardiogram is pending for today. Advise have been discontinued. Remains on breathing treatments. Autoimmune serologies have been sent. Troponin was 0.026, 0.028, and 0.083. Today's labs have been reviewed showing white blood cell count of 24.1, hemoglobin of 13.1, sodium is 135, potassium is 3.2, chloride is 98, CO2 31, B1 is 98, creatinine is 2.35 On 05/15/2020 patient seen in follow-up on selective care unit, is awake and alert, currently on 3 L of oxygen with a pulse ox of 93%, no fever or chills, radiating seems to be comfortable, cytology of the pericardial fluid showed malignant cells consistent with metastatic adenocarcinoma. Patient also remains on antibiotics for pseudomonas aeruginosa in the sputum cultures. Current coverage is with cefepime, ID service is following, patient remains on breathing treatments, IV steroids and Symbicort. On 05/16/2020 patient seen in follow-up on the selective care unit, pericardial fluid cytology showed malignant cells consistent with metastatic adenocarcinoma with unknown primary. Medical oncology has been consulted. Breathing ruiz patient is doing better, still has a wet congested cough, vitals are stable, patient is currently on 2 L of oxygen a pulse ox of 97%, denies any fever or chills, denies any chest pain. Today's chest x-ray shows cardiomegaly and chronic emphysematous changes with small bilateral pleural effusions and bibasilar atelectasis. Today's labs have been reviewed, electrolytes appear to be stable, and renal profile is stable. No nausea vomiting or diarrhea, results of the cytology were discussed with the patient, and Dr. Trejo was in the room, patient was informed of the need to complete the workup to determine primary origin of the metastatic adenocarcinoma. On 05/17/2020 patient seen in follow-up on selective care unit, he is on 2 L of oxygen the pulse ox of 96%, he states his breathing has significantly improved since admission. Appears to be comfortable, no complaints of chest pain. Patient was found to have metastatic adenocarcinoma with unknown primary, currently undergoing workup to determine primary origin. Surgery has been consulted, and patient is scheduled for EGD and colonoscopy tomorrow. Lung sounds reveal slightly coarse breath sounds. Today's labs have been reviewed, showing white blood cell count of 15.6, hemoglobin of 13.7, sodium is 136, potassium is 4.3, chloride is 99, CO2 36, BUN of 51, creatinine is 1.62. CEA level was elevated at 88.1, CA 199 was within normal limits at 1.5. Patient remains on antibiotics for pulmonary pseudomonal infection. He's had no fever or chills. Objective - Vital Signs Vital signs: Vital Signs Temp 98.5 F 05/17/20 03:51 Pulse 72 05/17/20 11:42 Resp 16 05/17/20 12:00 BP 131/63 05/17/20 08:00 Pulse Ox 96 05/17/20 08:00 Intake & Output 05/16/20 05/17/20 05/17/20 18:59 06:59 18:59 Intake Total 1326 300 Output Total 1425 200 Balance -99 -200 300 Weight 89.5 kg Intake: Oral 1326 300 Output: Urine 1425 200 Other: Voiding Method Urinal Urinal Urinal Diaper # Voids 1 1 - Exam GENERAL EXAM: Alert, very pleasant, 74-year-old white male, on 2 L of oxygen with a pulse ox of 96%, comfortable in no apparent distress. HEAD: Normocephalic/atraumatic. EYES: Normal reaction of pupils, equal size. Conjunctiva pink, sclera white. NOSE: Clear with pink turbinates. THROAT: No erythema or exudates. NECK: No masses, no JVD, no thyroid enlargement, no adenopathy. CHEST: No chest wall deformity. Symmetrical expansion. LUNGS: Equal air entry with no crackles, wheeze, rhonchi or dullness. CVS: Regular rate and rhythm, normal S1 and S2, no gallops, no murmurs, no rubs ABDOMEN: Soft, nontender. No hepatosplenomegaly, normal bowel sounds, no guarding or rigidity. EXTREMITIES: No clubbing, no edema, no cyanosis, 2+ pulses and upper and lower extremities. MUSCULOSKELETAL: Muscle strength and tone normal. SPINE: No scoliosis or deformity SKIN: No rashes CENTRAL NERVOUS SYSTEM: Alert and oriented -3. No focal deficits, tone is normal in all 4 extremities. PSYCHIATRIC: Alert and oriented -3. Appropriate affect. Intact judgment and insight. - Labs CBC & Chem 7: 05/17/20 05:30 05/17/20 05:30 Labs: Abnormal Lab Results - Last 24 Hours (Table) 05/16/20 05/16/20 05/16/20 Range/Units 16:50 20:17 22:26 WBC (3.8-10.6) k/uL RBC (4.30-5.90) m/uL MCV (80.0-100.0) fL Plt Count (150-450) k/uL Neutrophils # (1.3-7.7) k/uL Lymphocytes # (1.0-4.8) k/uL Sodium (137-145) mmol/L Carbon Dioxide (22-30) mmol/L BUN (9-20) mg/dL Creatinine (0.66-1.25) mg/dL Glucose (74-99) mg/dL POC Glucose (mg/dL) 128 H 224 H 246 H (75-99) mg/dL Calcium (8.4-10.2) mg/dL TIBC (228-460) ug/dL % Saturation (15.00-50.00) Ferritin (22.0-322.0) ng/mL ALT (4-49) U/L Lactate Dehydrogenase (313-618) U/L Total Protein (6.3-8.2) g/dL Albumin (3.5-5.0) g/dL Vitamin B12 (200.0-944.0) pg/mL 05/17/20 05/17/20 05/17/20 Range/Units 05:30 05:30 06:10 WBC 15.6 H (3.8-10.6) k/uL RBC 4.27 L (4.30-5.90) m/uL MCV 103.0 H (80.0-100.0) fL Plt Count 139 L (150-450) k/uL Neutrophils # 14.3 H (1.3-7.7) k/uL Lymphocytes # 0.4 L (1.0-4.8) k/uL Sodium 136 L (137-145) mmol/L Carbon Dioxide 36 H (22-30) mmol/L BUN 51 H (9-20) mg/dL Creatinine 1.62 H (0.66-1.25) mg/dL Glucose 101 H (74-99) mg/dL POC Glucose (mg/dL) 107 H (75-99) mg/dL Calcium 7.9 L (8.4-10.2) mg/dL TIBC 206 L (228-460) ug/dL % Saturation 70.87 H (15.00-50.00) Ferritin 405.8 H (22.0-322.0) ng/mL ALT 85 H (4-49) U/L Lactate Dehydrogenase 823 H (313-618) U/L Total Protein 4.8 L (6.3-8.2) g/dL Albumin 2.5 L (3.5-5.0) g/dL Vitamin B12 1204.0 H (200.0-944.0) pg/mL Microbiology - Last 24 Hours (Table) 05/11/20 09:50 Blood Culture - Final Blood No Growth after 144 hours 05/11/20 09:45 Blood Culture - Final Blood No Growth after 144 hours Assessment and Plan Plan: Assessment: #1. Metastatic adenocarcinoma with large pericardial effusion with early tamponade, status post emergent percutaneous pericardial drain insertion under echo guidance, with immediate removal of 850 ML of bloody pericardial fluid w hich was sent for analysis, cultures and cytology. There was an additional 50 ML removed from the catheter yesterday evening on 05/10/2020. Pericardial fluid cytology was positive for malignant cells consistent with metastatic adenocarcinoma with nonspecific pattern, with potential primary sources including upper GI/pancreatic or biliary tract or lung adenocarcinoma #2. Severe dyspnea acute hypoxic respiratory failure related to the above, improved #3. Acute kidney injury, slightly improved on today's labs #4. Mild plasma lactic acidosis, improved #5. History of COPD, with baseline FEV1 of 34% of predicted #6. Long history of smoking, currently in remission for last 3 weeks, carries 10-finn-cigt smoking history #7. Pulmonary nodules, abdomen followed by Dr. Nicole, and are stable #8. Significant lower extremity edema with no evidence of DVT #9. History of prostate cancer #10. Restless leg syndrome #11. Chronic deafness #12. Pseudomonal pulmonary infection, currently on cefepime Plan: Continue IV steroids, breathing treatments and antibiotics, dyspnea has s ignificantly improved, today's chest x-ray has been reviewed, showing small bilateral pleural effusions and bibasilar atelectasis. Patient is otherwise stable, he is scheduled for EGD and colonoscopy tomorrow. MRI of the brain today. He can considered for discharge home from [facility] once he completes the workup testing I performed a history & physical examination of the patient and discussed their management with my nurse practitioner, Kandi Saleem. I reviewed the nurse practitioner's note and agree with the documented findings and plan of care. Lung sounds are positive for diminished breath sounds. The findings and the impression was discussed with the patient. I attest to the documentation by the nurse practitioner. Time with Patient: Less than 30
[2020-05-17 14:12] VITALS: BMI 26.7
--- NOTE | 2020-05-17 14:19 | MR ---
EXAMINATION TYPE: MR abdomen wo/w con DATE OF EXAM: 05/17/2020 COMPARISON: Correlation CT chest 05/12/2020 HISTORY: 74-year-old male Metastatic Cancer assess primary and metastasis Technique: Multiplanar, multisequence images of the abdomen were obtained before and after administra tion of 9 mL intravenous Gadavist gadolinium contrast. FINDINGS: Prominent motion artifact. Heart normal size. Small pericardial effusion measuring 8 to 9 mm. Moderate effusions with adjacent o pacity, atelectasis versus pneumonitis. Clinically correlate. Small hiatal hernia. No definite focal liver lesion. No fatty infiltration of the liver on opposed phase T1-weighted image s. Gallbladder distended to the upper limits of normal at 3.9 cm. No wall thickening or surrounding infl ammation seen. Portal venous system is patent. No biliary duct dilatation. Adrenal glands, kidneys, spleen, and pancreas show no gross abnormality. Marked generalized anasarca change. Moderate stool burden. No dilated small bowel loops. Allowing for motion artifacts, no definite upper abdominal lymphadenopathy seen. No obvious upper abd ominal ascites fluid. IMPRESSION: 1. Marked generalized anasarca change. Moderate effusions with adjacent atelectasis and/or consolidat ion. Small pericardial effusion measuring 8 to 9 mm thick. Correlate for fluid overload state. 2. There are motion artifacts limiting the exam. No definite suspicious lesion of the solid abdominal viscera. 3. Small hiatal hernia.
--- NOTE | 2020-05-17 15:55 | P.PN ---
Subjective Progress Note Date: 05/17/20 Principal diagnosis: Malignant Pericardial Effusion Patient and at bedside. He is feeling ok, less sob, no nausea but also no BM in a few days. MRI of abdomen did not reveal any primary site of cancer. He is planning on EGD and COlonoscopy tomorrow am. Objective - Vital Signs Vital signs: Vital Signs Temp 98.5 F 05/17/20 03:51 Pulse 69 05/17/20 15:29 Resp 16 05/17/20 12:00 BP 131/63 05/17/20 08:00 Pulse Ox 96 05/17/20 08:00 Intake & Output 05/16/20 05/17/20 05/17/20 18:59 06:59 18:59 Intake Total 1326 300 Output Total 1425 200 Balance -99 -200 300 Weight 89.5 kg 89.5 kg Intake: Oral 1326 300 Output: Urine 1425 200 Other: Voiding Method Urinal Urinal Urinal Diaper # Voids 1 1 - Exam - Constitutional General appearance: cooperative, no acute distress - EENT Eyes: PERRLA, poor dentition, normal appearance ENT: hearing grossly normal, normal oropharynx - Respiratory Respiratory: bilateral: diminished (mild increased effort) - Cardiovascular Rhythm: regular Heart sounds: normal: S1, S2 leg Peripheral Edema: bilateral: 3+ - Gastrointestinal General gastrointestinal: soft, tenderness - Integumentary Integumentary: pale - Neurologic Neurologic: CNII-XII intact - Musculoskeletal Musculoskeletal: generalized weakness - Psychiatric Psychiatric: A&O x's 3, appropriate affect, intact judgment & insight - Labs CBC & Chem 7: 05/17/20 05:30 05/17/20 05:30 Labs: Abnormal Lab Results - Last 24 Hours (Table) 05/16/20 05/16/20 05/16/20 Range/Units 16:50 20:17 22:26 WBC (3.8-10.6) k/uL RBC (4.30-5.90) m/uL MCV (80.0-100.0) fL Plt Count (150-450) k/uL Neutrophils # (1.3-7.7) k/uL Lymphocytes # (1.0-4.8) k/uL Sodium (137-145) mmol/L Carbon Dioxide (22-30) mmol/L BUN (9-20) mg/dL Creatinine (0.66-1.25) mg/dL Glucose (74-99) mg/dL POC Glucose (mg/dL) 128 H 224 H 246 H (75-99) mg/dL Calcium (8.4-10.2) mg/dL TIBC (228-460) ug/dL % Saturation (15.00-50.00) Ferritin (22.0-322.0) ng/mL ALT (4-49) U/L Lactate Dehydrogenase (313-618) U/L Total Protein (6.3-8.2) g/dL Albumin (3.5-5.0) g/dL Vitamin B12 (200.0-944.0) pg/mL 05/17/20 05/17/20 05/17/20 Range/Units 05:30 05:30 06:10 WBC 15.6 H (3.8-10.6) k/uL RBC 4.27 L (4.30-5.90) m/uL MCV 103.0 H (80.0-100.0) fL Plt Count 139 L (150-450) k/uL Neutrophils # 14.3 H (1.3-7.7) k/uL Lymphocytes # 0.4 L (1.0-4.8) k/uL Sodium 136 L (137-145) mmol/L Carbon Dioxide 36 H (22-30) mmol/L BUN 51 H (9-20) mg/dL Creatinine 1.62 H (0.66-1.25) mg/dL Glucose 101 H (74-99) mg/dL POC Glucose (mg/dL) 107 H (75-99) mg/dL Calcium 7.9 L (8.4-10.2) mg/dL TIBC 206 L (228-460) ug/dL % Saturation 70.87 H (15.00-50.00) Ferritin 405.8 H (22.0-322.0) ng/mL ALT 85 H (4-49) U/L Lactate Dehydrogenase 823 H (313-618) U/L Total Protein 4.8 L (6.3-8.2) g/dL Albumin 2.5 L (3.5-5.0) g/dL Vitamin B12 1204.0 H (200.0-944.0) pg/mL Microbiology - Last 24 Hours (Table) 05/11/20 09:50 Blood Culture - Final Blood No Growth after 144 hours 05/11/20 09:45 Blood Culture - Final Blood No Growth after 144 hours Assessment and Plan (1) History of prostate cancer Current Visit: Yes Status: Acute Code(s): Z85.46 - PERSONAL HISTORY OF MALIGNANT NEOPLASM OF PROSTATE SNOMED Code(s): 732873553 (2) Adenocarcinoma Current Visit: Yes Status: Acute Code(s): C80.1 - MALIGNANT (PRIMARY) NEOPLASM, UNSPECIFIED SNOMED Code(s): 910231687 (3) Acute kidney injury Current Visit: Yes Status: Acute Code(s): N17.9 - ACUTE KIDNEY FAILURE, UNSPECIFIED SNOMED Code(s): 69702110 (4) Edema of both lower extremities due to peripheral venous insufficiency Current Visit: Yes Status: Acute Code(s): I87.2 - VENOUS INSUFFICIENCY (CHRONIC) (PERIPHERAL) SNOMED Code(s): 07473010022433821 (5) Pericardial effusion without cardiac tamponade Current Visit: Yes Status: Acute Code(s): I31.3 - PERICARDIAL EFFUSION (NONINFLAMMATORY) SNOMED Code(s): 627006240 Plan: Assessment and recommendations: Malignant Pericardial Effusion: - Status Post Pericardial Effusion 850cc off on 05/09/20 positive cytology for adenocarcinoma - Primary site not currently known History of prostate Cancer in 02/2019 with radical prostatectomy - Check PSA Renal Insufficiency: Improving Increased LDH: - Check Uric Acid Increased LFTs: - MRI abdomen shows no abnormality in liver Tobacco Abuse Plan: - Awaiting MRI Brain, EGD and COlonoscopy - Primary site has yet to be determined - Awaiting PSA Results (Normal in February 2020)
--- NOTE | 2020-05-17 16:00 | P.PN ---
Subjective Progress Note Date: 05/17/20 05/09/2020 74-year-old male patient presented emergency room ambulatory chief complaint of shortness of breath. In ER chest x-ray showed small pleural effusions are essentially new compared to all exam no gross heart failure. He has had a long-standing history of COPD, and noted history of smoking. He quit approximately 3 weeks ago at the onset of current symptoms. He was seen in emergency room for similar complaint earlier in the month and he has been seen in the office twice once for ER follow-up and the other for recheck. From the office he was started on 80 mg of Lasix as well as clarithromycin. With taking medications he stated there was no improvement in his symptoms and his fatigue worsened. He was also ordered a rescue inhaler but had minimal improvement with its use. He denied chest pain, unilateral numbness or weakness, orthopnea. Continue to have bilateral lower extremity peripheral edema. He has no history of hypertension, DVT or PE, denies history of heart failure, does not utilized home O2, denies fever or chills. He he denied cough and arrival in ER. Past medical history of cancer, COPD, heart appearing as related to being in the , prostate disorder, every day smoker up until current sickness. Is also noted to have a right hip. Echocardiogram this morning showed ejection fraction 40-45% with very mild left ventricular hypokinesis. Is also noted to have large global pericardial effusion without tamponade. Appears cardiology was on hand at time of echo and consulted cardiothoracic for evaluation. Dr. Jimenez saw patient in room and performed a percutaneous pericardial drainage with echo guidance in which he 850 ml of bloody pericardial fluid was drained and sent for cytology, LDH, protein, glucose. Venous Doppler duplex lower summary bilaterally was completed today impression showed early to moderate diffuse subcutaneous edema greatest towards the periphery bilaterally without acute DVT in either extremity. Current labs WBC of 19.3, hemoglobin 13.8, hematocrit 42.1, platelet count 214, neutrophils 16.1, monocytes 1.4, PT of 12.8, INR 1.3, d-dimer 1.95. Chemistry revealed a sodium 131, potassium 4.0, chloride 92, bun 97, creatinine of 2.99, lactic acid initially was 3.0 and resuscitated down to 1.9. AST 120, [place] T [place] for, initial troponin 0.0-6, which elevated later to 0.083. Most recent chart of vitals afebrile 98.2, pulse rate of 92 normal sinus rhythm, respiratory rate of 22, blood pressure 120/72, oxygen saturation 96% on 2 L nasal cannula. 05/11/2020 worsening shortness of breath, desatted into the 80s, O2 increased from 3 L to 5 L this morning, maintaining O2 sats of 91-92% currently. Nonproductive cough. Pericardial cytology pending. Last night drained approximately 50 MLS and trace drainage this morning .Mild confusion with desaturation. Worsening edema. Chest x-ray reporting increased small pleural effusions with prominent by bibasilar atelectasis/consolidation .Converted from Lasix IV push to Lasix drip. Afebrile, WBC up to 24. Complains of left chest pericardial drain site pain. Renal function is slowly improving, down to 2.35. Potassium 3.2. 05/12/2020 diuresing well on Lasix drip with 24-hour I&O reflecting a negative fluid balance. Maintained on nebulized bronchodilators with the addition of IV steroids. Continues on 5 L nasal cannula, maintaining O2 sats in the 90s. Prod uctive cough with thick yellow sputum, collected for culture. Blood cultures reporting no growth. Pericardial cytology pending. Fluid analysis exudative. WBC trending up, 25.4, afebrile.infectious disease consulted , daptomycin and cefepime initiated.Pain controlled. No drainage from pericardial drain, repeat echo performed this morning reporting trivial pericardial effusion. Renal function improving down to 1.87. Potassium 3.4. 05/15/2020 pericardial fluid cytology reporting metastatic adenocarcinoma. Pericardial drain discontinued over the weekend. Diuresing well on Lasix IV push with 24-hour I&O reflecting a negative fluid balance. Significant clinical improvement. Ambulating, tolerating exertion well. Renal function continues to improve down to 1.7. VSS. Oxygen has been weaned down to 3 L nasal cannula, maintaining O2 sats in the 90s. IS up to 1500. Afebrile, WBC 14.8 on cefepime 05/16/2020 metastatic adenocarcinoma discussed with patient, etiology unclear, possible lungs, upper GI/pancreatic or biliary/colon. Evaluated by oncology with recommendations of completing the workup to determine primary origin. Continues diuresing well on Lasix IV push, tarry same with 24-hour I&O reflecting a negative fluid balance. Creatinine maintained on 1.7. Chest x-ray reporting no significant change from prior studies. Maintaining O2 sats in the 90s on 2 L nasal cannula. IS up to 1500. Afebrile. 05/17/2020 scheduled for MRI of abdomen/pelvis this afternoon. Evaluated by Dr. Marroquin, scheduled for EGD and colonoscopy tomorrow. Continues on cefepime for pseudomonas in sputum. CEA level elevated at 88.1, CA 199 WNL. Denies chest pain, palpitations or shortness of breath. Denies abdominal pain. Renal function slowly trending down, 1.62. Maintaining O2 sats in the 90s on 2 L nasal cannula. Objective - Vital Signs Vital signs: Vital Signs Temp 98.5 F 05/17/20 03:51 Pulse 69 05/17/20 15:29 Resp 16 05/17/20 12:00 BP 131/63 05/17/20 08:00 Pulse Ox 96 05/17/20 08:00 Intake & Output 05/16/20 05/17/20 05/17/20 18:59 06:59 18:59 Intake Total 1326 300 Output Total 1425 200 Balance -99 -200 300 Weight 89.5 kg 89.5 kg Intake: Oral 1326 300 Output: Urine 1425 200 Other: Voiding Method Urinal Urinal Urinal Diaper # Voids 1 1 - Exam GENERAL: Sitting up in bed, no acute distress HEAD: Atraumatic, normocephalic. EYES: Pupils equal round and reactive to light, sclera anicteric, conjunctiva are normal. ENT:nares patent, oropharynx clear without exudates. Oral mucosa moist. NECK: Normal range of motion, no JVD, no thyromegaly LUNGS: Breath sounds diminished HEART: Regular rate and rhythm without murmurs, rubs or gallops.S1S2 Normal. ABDOMEN: Soft, nontender, normoactive bowel sounds. No guarding, no rebound. No masses appreciated. EXTREMITIES: Normal range of motion, decreasing edema. No clubbing or cyanosis. NEUROLOGICAL: Cranial nerves II through XII grossly intact. No focal deficits. PSYCH: Normal mood, normal affect. SKIN: Warm, Dry, normal turgor, no rashes. - Labs CBC & Chem 7: 05/17/20 05:30 05/17/20 05:30 Labs: Abnormal Lab Results - Last 24 Hours (Table) 05/16/20 05/16/20 05/16/20 Range/Units 16:50 20:17 22:26 WBC (3.8-10.6) k/uL RBC (4.30-5.90) m/uL MCV (80.0-100.0) fL Plt Count (150-450) k/uL Neutrophils # (1.3-7.7) k/uL Lymphocytes # (1.0-4.8) k/uL Sodium (137-145) mmol/L Carbon Dioxide (22-30) mmol/L BUN (9-20) mg/dL Creatinine (0.66-1.25) mg/dL Glucose (74-99) mg/dL POC Glucose (mg/dL) 128 H 224 H 246 H (75-99) mg/dL Calcium (8.4-10.2) mg/dL TIBC (228-460) ug/dL % Saturation (15.00-50.00) Ferritin (22.0-322.0) ng/mL ALT (4-49) U/L Lactate Dehydrogenase (313-618) U/L Total Protein (6.3-8.2) g/dL Albumin (3.5-5.0) g/dL Vitamin B12 (200.0-944.0) pg/mL 05/17/20 05/17/20 05/17/20 Range/Units 05:30 05:30 06:10 WBC 15.6 H (3.8-10.6) k/uL RBC 4.27 L (4.30-5.90) m/uL MCV 103.0 H (80.0-100.0) fL Plt Count 139 L (150-450) k/uL Neutrophils # 14.3 H (1.3-7.7) k/uL Lymphocytes # 0.4 L (1.0-4.8) k/uL Sodium 136 L (137-145) mmol/L Carbon Dioxide 36 H (22-30) mmol/L BUN 51 H (9-20) mg/dL Creatinine 1.62 H (0.66-1.25) mg/dL Glucose 101 H (74-99) mg/dL POC Glucose (mg/dL) 107 H (75-99) mg/dL Calcium 7.9 L (8.4-10.2) mg/dL TIBC 206 L (228-460) ug/dL % Saturation 70.87 H (15.00-50.00) Ferritin 405.8 H (22.0-322.0) ng/mL ALT 85 H (4-49) U/L Lactate Dehydrogenase 823 H (313-618) U/L Total Protein 4.8 L (6.3-8.2) g/dL Albumin 2.5 L (3.5-5.0) g/dL Vitamin B12 1204.0 H (200.0-944.0) pg/mL Microbiology - Last 24 Hours (Table) 05/11/20 09:50 Blood Culture - Final Blood No Growth after 144 hours 05/11/20 09:45 Blood Culture - Final Blood No Growth after 144 hours Assessment and Plan Assessment: (1) large Pericardial effusion with early cardiac tamponade, status post emergent percutaneous pericardial drain , cytology reporting metastatic adenocarcinoma Current Visit: Yes Status: Acute Code(s): I31.3 - PERICARDIAL EFFUSION (NONINFLAMMATORY) SNOMED Code(s): 405263381 (2) Acute kidney injury, cardiorenal Current Visit: Yes Status: Acute Code(s): N17.9 - ACUTE KIDNEY FAILURE, UNSPECIFIED SNOMED Code(s): 70577989 (3) COPD exacerbation Current Visit: Yes Status: Acute Code(s): J44.1 - CHRONIC OBSTRUCTIVE PULMONARY DISEASE W (ACUTE) EXACERBATION SNOMED Code(s): 054360499 (4) Pneumonia, sputum cultures reporting pseudomonas aeruginosa Current Visit: No Status: Acute Code(s): J18.9 - PNEUMONIA, UNSPECIFIED OR GANISM SNOMED Code(s): 699773388 (5) Shortness of breath Current Visit: Yes Status: Acute Code(s): R06.02 - SHORTNESS OF BREATH SNOMED Code(s): 584303419 (6) Edema, peripheral Current Visit: Yes Status: Acute Code(s): R60.9 - EDEMA, UNSPECIFIED SNOMED Code(s): 700546427 (7) hypokalemia secondary to diuretics (8) lactic acidosis, improved (9) acute metabolic encephalopathy secondary to hypoxia (10) acute hypoxic respiratory failure secondary to #1 (11) nicotine dependence, [id number] ,quit smoking 2 weeks ago (12) Lung nodules, being followed outpatient with Dr. Nicole (13) history of prostate cancer, skin cancer (14) chronic deafness (15) leukocytosis, possibly secondary to sepsis related to #1 (16) oral candidasis Plan: Continue on current medication regime ,monitoring and symptomatic treatm ent.Workup initiated to identify primary in progress; MRI of abdomen pending, EGD and colonoscopy tomorrow. Possible recurrent pericardial effusion ,potential for pericardial window .diuretic tapering as per nephrology.Antibiotics as per Infectious disease.Close monitoring of renal function,electrolytes with repeat labs ordered for a.m. Prognosis guarded given multiple complex medical issues. The impression and plan of care has been dictated as directed. : I performed a history and examination of this patient, discussed the same with the dictator. I agree with the dictator's note ,documented as a scribe. Any additional findings or plans will be noted.
[2020-05-17 17:09] LABS: Glucose,Whole Blood 111 mg/dL (75-99)
--- NOTE | 2020-05-17 17:30 | P.PN ---
Subjective Patient is seen in follow-up for acute kidney injury. Renal function is stable. Currently maintained on IV Lasix 40 mg every 8 hours. Edema improving. Oral intake fair. Admits to good urine output. No chest pain or shortness of breath. Hemodynamically stable. No changes overnight. Vital signs are stable. General: The patient appeared well nourished and normally developed. HEENT: Head exam is unremarkable. Neck is without jugular venous distension. LUNGS: Breath sounds decreased. HEART: Rate and Rhythm are regular. ABDOMEN: Soft, nontender. EXTREMITITES: 1+ edema. Objective - Vital Signs Vital signs: Vital Signs Temp 98.5 F 05/17/20 03:51 Pulse 78 05/17/20 16:00 Resp 16 05/17/20 16:00 BP 113/63 05/17/20 16:00 Pulse Ox 95 05/17/20 16:00 Intake & Output 05/16/20 05/17/20 05/17/20 18:59 06:59 18:59 Intake Total 1326 300 Output Total 1425 200 800 Balance -99 -200 -500 Weight 89.5 kg 89.5 kg Intake: Oral 1326 300 Output: Urine 1425 200 800 Other: Voiding Method Urinal Urinal Urinal Diaper # Voids 1 1 - Labs CBC & Chem 7: 05/17/20 05:30 05/17/20 05:30 Labs: Abnormal Lab Results - Last 24 Hours (Table) 05/16/20 05/16/20 05/17/20 Range/Units 20:17 22:26 05:30 WBC (3.8-10.6) k/uL RBC (4.30-5.90) m/uL MCV (80.0-100.0) fL Plt Count (150-450) k/uL Neutrophils # (1.3-7.7) k/uL Lymphocytes # (1.0-4.8) k/uL Sodium 136 L (137-145) mmol/L Carbon Dioxide 36 H (22-30) mmol/L BUN 51 H (9-20) mg/dL Creatinine 1.62 H (0.66-1.25) mg/dL Glucose 101 H (74-99) mg/dL POC Glucose (mg/dL) 224 H 246 H (75-99) mg/dL Calcium 7.9 L (8.4-10.2) mg/dL TIBC 206 L (228-460) ug/dL % Saturation 70.87 H (15.00-50.00) Ferritin 405.8 H (22.0-322.0) ng/mL ALT 85 H (4-49) U/L Lactate Dehydrogenase 823 H (313-618) U/L Total Protein 4.8 L (6.3-8.2) g/dL Albumin 2.5 L (3.5-5.0) g/dL Vitamin B12 1204.0 H (200.0-944.0) pg/mL 05/17/20 05/17/20 05/17/20 Range/Units 05:30 06:10 17:08 WBC 15.6 H (3.8-10.6) k/uL RBC 4.27 L (4.30-5.90) m/uL MCV 103.0 H (80.0-100.0) fL Plt Count 139 L (150-450) k/uL Neutrophils # 14.3 H (1.3-7.7) k/uL Lymphocytes # 0.4 L (1.0-4.8) k/uL Sodium (137-145) mmol/L Carbon Dioxide (22-30) mmol/L BUN (9-20) mg/dL Creatinine (0.66-1.25) mg/dL Glucose (74-99) mg/dL POC Glucose (mg/dL) 107 H 111 H (75-99) mg/dL Calcium (8.4-10.2) mg/dL TIBC (228-460) ug/dL % Saturation (15.00-50.00) Ferritin (22.0-322.0) ng/mL ALT (4-49) U/L Lactate Dehydrogenase (313-618) U/L Total Protein (6.3-8.2) g/dL Albumin (3.5-5.0) g/dL Vitamin B12 (200.0-944.0) pg/mL Microbiology - Last 24 Hours (Table) 05/11/20 09:50 Blood Culture - Final Blood No Growth after 144 hours 05/11/20 09:45 Blood Culture - Final Blood No Growth after 144 hours Assessment and Plan Plan: assessment: 1. Acute kidney injury secondary to ATN secondary to cardiorenal syndrome. Renal function stable. Creatinine 1.62 today. UA benign. 2. Acute on chronic systolic CHF with ejection fraction of 40-45%. 3. Pericardial effusion status post pericardiocentesis. 4. Volume overload. Improving with diuresis. 5. Hypervolemic hyponatremia. Better. 6. Metabolic alkalosis secondary to diuresis maintained on Diamox. Stable. 7. Hypokalemia secondary to diuresis status post for placement. Better. 8. Pericardial fluid cytology positive for metastatic adenocarcinoma. Oncology following. No metastatic lesion noted on MRI of abdomen. Plan: Maintain IV Lasix 40 mg 3 times daily for now. Effusions and anasarca state noted on MRI. Low-salt diet and 1.5 L fluid restriction. Strict I's and O's. Repeat electrolytes in the morning.
[2020-05-17 20:24] LABS: Glucose,Whole Blood 147 mg/dL (75-99)
[2020-05-17] MEDS: clonazePAM 0.5 MG TAB PO SCH (22:08)
[2020-05-17] MEDS: MELATONIN 5 MG TABLET PO SCH (23:27)
[2020-05-18] MEDS: SODIUM CHLORIDE 0.9% 1,000 ML IV SCH (00:02)
[2020-05-18] MEDS: METOPROLOL TARTRATE 25 MG TAB PO SCH ×4 (00:36→20:47)
--- NOTE | 2020-05-18 03:52 | PN ---
PROGRESS NOTE DATE OF SERVICE: 05/17/2020 REASON FOR FOLLOWUP: Pseudomonas pneumonia and leukocytosis. INTERVAL HISTORY: Patient is currently afebrile. He has been breathing comfortably. Denies having any chest pain, no shortness of breath. Cough, but no worsening. No vomiting or diarrhea. PHYSICAL EXAMINATION: Blood pressure 131/63 with a pulse of 69, temperature 98. He is 96% on 2 L nasal cannula. General description is elderly male up in the bed in no distress. RESPIRATORY SYSTEM: Unlabored breathing, decreased breath sounds at the bases. No wheeze. HEART: S1, S2. Regular rate and rhythm. ABDOMEN: Soft, no tenderness. LABS: Hemoglobin is 13.7, white count 15.6, BUN of 51, creatinine 1.62. DIAGNOSTIC IMPRESSION AND PLAN: 1. Patient with leukocytosis likely multifactorial possible reactive plus-minus component of pneumonia. Sputum has Pseudomonas and the patient is currently covered with cefepime to continue. 2. Oral thrush. Continue with nystatin swish and swallow and monitor clinical course closely. MMODL / IJN: [id number] /
[2020-05-18 06:11] LABS: Glucose,Whole Blood 107 mg/dL (75-99)
[2020-05-18 06:14] LABS: Basophils % (A) 0 %; Eosinophils % (A) 0 %; HCT 43.5 % (39.0-53.0); HGB 13.8 gm/dL (13.0-17.5); Hypochromasia Slight; Lymphocytes # (A) 0.6 k/uL (1.0-4.8); Lymphocytes % (A) 4 %; MCH 32.9 pg (25.0-35.0); MCHC 31.8 g/dL (31.0-37.0); MCV 103.4 fL (80.0-100.0); Macrocytosis Slight; Mean Platelet Volume 8.9; Monocytes # (A) 0.6 k/uL (0-1.0); Monocytes % (A) 5 %; Neutrophils % (A) 90 %; Platelet Count 139 k/uL (150-450); RBC 4.21 m/uL (4.30-5.90); RDW 13.6 % (11.5-15.5); WBC 13.3 k/uL (3.8-10.6)
[2020-05-18 06:24] LABS: INR 1.2 (<1.2); Partial Thromboplastin Time 22.9 sec (22.0-30.0); Prothrombin Time 11.7 sec (9.0-12.0)
[2020-05-18 06:27] LABS: Albumin 2.5 g/dL (3.5-5.0); Potassium 3.9 mmol/L (3.5-5.1); Total Bilirubin 1.1 mg/dL (0.2-1.3); Total Protein 4.8 g/dL (6.3-8.2); Uric Acid 7.7 mg/dL (3.5-8.5)
[2020-05-18] MEDS: IPRATROPIUM-ALBUTEROL 3 ML NEB INHALATION SCH ×4 (07:21→21:12)
[2020-05-18] MEDS: SYMBICORT 160-4.5 MCG INHALER INHALATION SCH ×2 (07:21→21:12)
[2020-05-18] MEDS: INSULIN ASPART (NovoLOG) 100 UNIT/ML VIAL SQ SCH ×4 (08:58→20:48)
[2020-05-18] MEDS: FUROSEMIDE 10 MG/ML 4 ML VIAL IV SCH ×3 (09:09→23:31)
[2020-05-18] MEDS: CEFEPIME 2 GM in SODIUM CHLORIDE 0.9% 100 ML IVPB SCH ×2 (09:09→20:48)
[2020-05-18] MEDS: methylPREDNISolone SOD SUCCI 40 MG/ML 1 ML VIAL IV SCH ×3 (09:09→23:31)
[2020-05-18] MEDS: acetaZOLAMIDE 250 MG TAB PO SCH ×2 (09:10→20:48)
[2020-05-18] MEDS: PANTOPRAZOLE 40 MG TABLET PO SCH (09:10)
[2020-05-18] MEDS: DOCUSATE 100 MG CAP PO SCH ×2 (09:10→20:48)
[2020-05-18] MEDS: SENNOSIDES-DOCUSATE SODIUM 1 EACH TAB PO SCH ×2 (09:10→20:47)
[2020-05-18] MEDS: NYSTATIN 100,000 UNIT/ML SUSP 500,000 UNIT/5 ML CUP PO SCH ×4 (09:11→20:48)
--- NOTE | 2020-05-18 11:10 | P.PN ---
Subjective Patient is seen in follow-up for acute kidney injury. Renal function is better. Currently maintained on IV Lasix 40 mg every 8 hours. Edema improving. Oral intake fair. Admits to good urine output. No chest pain or shortness of breath. Hemodynamically stable. No changes overnight. Scheduled for colonoscopy today. Vital signs are stable. General: The patient appeared well nourished and normally developed. HEENT: Head exam is unremarkable. Neck is without jugular venous distension. LUNGS: Breath sounds decreased. HEART: Rate and Rhythm are regular. ABDOMEN: Soft, nontender. EXTREMITITES: 1+ edema. Objective - Vital Signs Vital signs: Vital Signs Temp 97.6 F 05/18/20 03:15 Pulse 63 05/18/20 03:15 Resp 20 05/18/20 03:15 BP 103/59 05/18/20 03:15 Pulse Ox 92 L 05/18/20 03:15 Intake & Output 05/17/20 05/18/20 05/18/20 18:59 06:59 18:59 Intake Total 500 Output Total 804 375 Balance -304 -375 Weight 89.5 kg 84.5 kg Intake: Oral 500 Output: Urine 804 375 Other: Voiding Method Urinal Urinal Diaper # Voids 2 1 # Bowel Movements 2 2 - Labs CBC & Chem 7: 05/18/20 06:00 05/18/20 06:00 Labs: Abnormal Lab Results - Last 24 Hours (Table) 05/17/20 05/17/20 05/17/20 Range/Units 05:30 17:08 20:22 WBC (3.8-10.6) k/uL RBC (4.30-5.90) m/uL MCV (80.0-100.0) fL Plt Count (150-450) k/uL Neutrophils # (1.3-7.7) k/uL Lymphocytes # (1.0-4.8) k/uL INR (<1.2) Sodium (137-145) mmol/L Carbon Dioxide (22-30) mmol/L BUN (9-20) mg/dL Creatinine (0.66-1.25) mg/dL Glucose (74-99) mg/dL POC Glucose (mg/dL) 111 H 147 H (75-99) mg/dL Calcium (8.4-10.2) mg/dL TIBC 206 L (228-460) ug/dL % Saturation 70.87 H (15.00-50.00) Ferritin 405.8 H (22.0-322.0) ng/mL ALT (4-49) U/L Total Protein (6.3-8.2) g/dL Albumin (3.5-5.0) g/dL Vitamin B12 1204.0 H (200.0-944.0) pg/mL 05/18/20 05/18/20 05/18/20 Range/Units 06:00 06:00 06:00 WBC 13.3 H (3.8-10.6) k/uL RBC 4.21 L (4.30-5.90) m/uL MCV 103.4 H (80.0-100.0) fL Plt Count 139 L (150-450) k/uL Neutrophils # 12.0 H (1.3-7.7) k/uL Lymphocytes # 0.6 L (1.0-4.8) k/uL INR 1.2 H (<1.2) Sodium 133 L (137-145) mmol/L Carbon Dioxide 34 H (22-30) mmol/L BUN 38 H (9-20) mg/dL Creatinine 1.43 H (0.66-1.25) mg/dL Glucose 111 H (74-99) mg/dL POC Glucose (mg/dL) (75-99) mg/dL Calcium 8.0 L (8.4-10.2) mg/dL TIBC (228-460) ug/dL % Saturation (15.00-50.00) Ferritin (22.0-322.0) ng/mL ALT 73 H (4-49) U/L Total Protein 4.8 L (6.3-8.2) g/dL Albumin 2.5 L (3.5-5.0) g/dL Vitamin B12 (200.0-944.0) pg/mL 05/18/20 Range/Units 06:10 WBC (3.8-10.6) k/uL RBC (4.30-5.90) m/uL MCV (80.0-100.0) fL Plt Count (150-450) k/uL Neutrophils # (1.3-7.7) k/uL Lymphocytes # (1.0-4.8) k/uL INR (<1.2) Sodium (137-145) mmol/L Carbon Dioxide (22-30) mmol/L BUN (9-20) mg/dL Creatinine (0.66-1.25) mg/dL Glucose (74-99) mg/dL POC Glucose (mg/dL) 107 H (75-99) mg/dL Calcium (8.4-10.2) mg/dL TIBC (228-460) ug/dL % Saturation (15.00-50.00) Ferritin (22.0-322.0) ng/mL ALT (4-49) U/L Total Protein (6.3-8.2) g/dL Albumin (3.5-5.0) g/dL Vitamin B12 (200.0-944.0) pg/mL Microbiology - Last 24 Hours (Table) 05/11/20 09:50 Blood Culture - Final Blood No Growth after 144 hours 05/11/20 09:45 Blood Culture - Final Blood No Growth after 144 hours Assessment and Plan Plan: assessment: 1. Acute kidney injury secondary to ATN secondary to cardiorenal syndrome. Renal function better. Creatinine 1.43 today. UA benign. 2. Acute on chronic systolic CHF with ejection fraction of 40-45%. 3. Pericardial effusion status post pericardiocentesis. 4. Volume overload. Improving with diuresis. 5. Hypervolemic hyponatremia. Better. 6. Metabolic alkalosis secondary to diuresis maintained on Diamox. Stable. 7. Hypokalemia secondary to diuresis status post for placement. Better. 8. Pericardial fluid cytology positive for metastatic adenocarcinoma. Oncology following. No metastatic lesion noted on MRI of abdomen. Plan: Maintain IV Lasix 40 mg 3 times daily for now. Effusions and anasarca state noted on MRI. Low-salt diet and 1.5 L fluid restriction. Strict I's and O's. Repeat electrolytes in the morning. Colonoscopy today.
[2020-05-18 11:30] LABS: Glucose,Whole Blood 92 mg/dL (75-99)
--- NOTE | 2020-05-18 11:57 | P.PN ---
Subjective Progress Note Date: 05/18/20 05/09/2020 74-year-old male patient presented emergency room ambulatory chief complaint of shortness of breath. In ER chest x-ray showed small pleural effusions are essentially new compared to all exam no gross heart failure. He has had a long-standing history of COPD, and noted history of smoking. He quit approximately 3 weeks ago at the onset of current symptoms. He was seen in emergency room for similar complaint earlier in the month and he has been seen in the office twice once for ER follow-up and the other for recheck. From the office he was started on 80 mg of Lasix as well as clarithromycin. With taking medications he stated there was no improvement in his symptoms and his fatigue worsened. He was also ordered a rescue inhaler but had minimal improvement with its use. He denied chest pain, unilateral numbness or weakness, orthopnea. Continue to have bilateral lower extremity peripheral edema. He has no history of hypertension, DVT or PE, denies history of heart failure, does not utilized home O2, denies fever or chills. He he denied cough and arrival in ER. Past medical history of cancer, COPD, heart appearing as related to being in the , prostate disorder, every day smoker up until current sickness. Is also noted to have a right hip. Echocardiogram this morning showed ejection fraction 40-45% with very mild left ventricular hypokinesis. Is also noted to have large global pericardial effusion without tamponade. Appears cardiology was on hand at time of echo and consulted cardiothoracic for evaluation. Dr. Jimenez saw patient in room and performed a percutaneous pericardial drainage with echo guidance in which he 850 ml of bloody pericardial fluid was drained and sent for cytology, LDH, protein, glucose. Venous Doppler duplex lower summary bilaterally was completed today impression showed early to moderate diffuse subcutaneous edema greatest towards the periphery bilaterally without acute DVT in either extremity. Current labs WBC of 19.3, hemoglobin 13.8, hematocrit 42.1, platelet count 214, neutrophils 16.1, monocytes 1.4, PT of 12.8, INR 1.3, d-dimer 1.95. Chemistry revealed a sodium 131, potassium 4.0, chloride 92, bun 97, creatinine of 2.99, lactic acid initially was 3.0 and resuscitated down to 1.9. AST 120, Whitney T [place] for, initial troponin 0.0-6, which elevated later to 0.083. Most recent chart of vitals afebrile 98.2, pulse rate of 92 normal sinus rhythm, respiratory rate of 22, blood pressure 120/72, oxygen saturation 96% on 2 L nasal cannula. 05/11/2020 worsening shortness of breath, desatted into the 80s, O2 increased from 3 L to 5 L this morning, maintaining O2 sats of 91-92% currently. Nonproductive cough. Pericardial cytology pending. Last night drained approximately 50 MLS and trace drainage this morning .Mild confusion with desaturation. Worsening edema. Chest x-ray reporting increased small pleural effusions with prominent by bibasilar atelectasis/consolidation .Converted from Lasix IV push to Lasix drip. Afebrile, WBC up to 24. Complains of left chest pericardial drain site pain. Renal function is slowly improving, down to 2.35. Potassium 3.2. 05/12/2020 diuresing well on Lasix drip with 24-hour I&O reflecting a negative fluid balance. Maintained on nebulized bronchodilators with the addition of IV steroids. Continues on 5 L nasal cannula, maintaining O2 sats in the 90s. Prod uctive cough with thick yellow sputum, collected for culture. Blood cultures reporting no growth. Pericardial cytology pending. Fluid analysis exudative. WBC trending up, 25.4, afebrile.infectious disease consulted , daptomycin and cefepime initiated.Pain controlled. No drainage from pericardial drain, repeat echo performed this morning reporting trivial pericardial effusion. Renal function improving down to 1.87. Potassium 3.4. 05/15/2020 pericardial fluid cytology reporting metastatic adenocarcinoma. Pericardial drain discontinued over the weekend. Diuresing well on Lasix IV push with 24-hour I&O reflecting a negative fluid balance. Significant clinical improvement. Ambulating, tolerating exertion well. Renal function continues to improve down to 1.7. VSS. Oxygen has been weaned down to 3 L nasal cannula, maintaining O2 sats in the 90s. IS up to 1500. Afebrile, WBC 14.8 on cefepime 05/16/2020 metastatic adenocarcinoma discussed with patient, etiology unclear, possible lungs, upper GI/pancreatic or biliary/colon. Evaluated by oncology with recommendations of completing the workup to determine primary origin. Continues diuresing well on Lasix IV push, tarry same with 24-hour I&O reflecting a negative fluid balance. Creatinine maintained on 1.7. Chest x-ray reporting no significant change from prior studies. Maintaining O2 sats in the 90s on 2 L nasal cannula. IS up to 1500. Afebrile. 05/17/2020 scheduled for MRI of abdomen/pelvis this afternoon. Evaluated by Dr. Marroquin, scheduled for EGD and colonoscopy tomorrow. Continues on cefepime for pseudomonas in sputum. CEA level elevated at 88.1, CA 199 WNL. Denies chest pain, palpitations or shortness of breath. Denies abdominal pain. Renal function slowly trending down, 1.62. Maintaining O2 sats in the 90s on 2 L nasal cannula. 05/18/2020 MRI of the abdomen did not reveal primary site of cancer, reported moderate stool, generalized anasarca, moderate effusions, small pericardial effusion with no definite suspected lesion.NPO, scheduled for both EGD and colonoscopy this afternoon. PSA level pending. Brain CT pending. Secondary to patient's renal function, CT of chest with contrast has not yet been performed. Outpatient PET scan possibly. Creatinine down to 1.43. Maintained on cefepime for Pseudomonas and sputum, questionable pneumonia. Diuresing well on Lasix IV push with 24-hour I&O reflecting a negative fluid balance. Objective - Vital Signs Vital signs: Vital Signs Temp 97.6 F 05/18/20 03:15 Pulse 63 05/18/20 03:15 Resp 20 05/18/20 03:15 BP 103/59 05/18/20 03:15 Pulse Ox 92 L 05/18/20 03:15 Intake & Output 05/17/20 05/18/20 05/18/20 18:59 06:59 18:59 Intake Total 500 Output Total 804 375 Balance -304 -375 Weight 89.5 kg 84.5 kg Intake: Oral 500 Output: Urine 804 375 Other: Voiding Method Urinal Urinal Diaper # Voids 2 # Bowel Movements 2 2 - Exam GENERAL: Sitting up in bed, no acute distress HEAD: Atraumatic, normocephalic. EYES: Pupils equal round and reactive to light, sclera anicteric, conjunctiva are normal. ENT:nares patent, oropharynx clear without exudates. Oral mucosa dry-NPO for endoscopy. NECK: Normal range of motion, no JVD LUNGS: Breath sounds diminished, HEART: Regular rate and rhythm without murmurs, rubs or gallops.S1,S2 Normal. ABDOMEN: Soft, nontender, normoactive bowel sounds. No guarding, no rebound. EXTREMITIES: Normal range of motion, softer/decreasing edema. No clubbing or cyanosis. NEUROLOGICAL: Cranial nerves II through XII grossly intact. No focal deficits. PSYCH: Normal mood, normal affect. SKIN: Warm, Dry, normal turgor, no rashes. - Labs CBC & Chem 7: 05/18/20 06:00 05/18/20 06:00 Labs: Abnormal Lab Results - Last 24 Hours (Table) 05/17/20 05/17/20 05/17/20 Range/Units 05:30 17:08 20:22 WBC (3.8-10.6) k/uL RBC (4.30-5.90) m/uL MCV (80.0-100.0) fL Plt Count (150-450) k/uL Neutrophils # (1.3-7.7) k/uL Lymphocytes # (1.0-4.8) k/uL INR (<1.2) Sodium (137-145) mmol/L Carbon Dioxide (22-30) mmol/L BUN (9-20) mg/dL Creatinine (0.66-1.25) mg/dL Glucose (74-99) mg/dL POC Glucose (mg/dL) 111 H 147 H (75-99) mg/dL Calcium (8.4-10.2) mg/dL TIBC 206 L (228-460) ug/dL % Saturation 70.87 H (15.00-50.00) Ferritin 405.8 H (22.0-322.0) ng/mL ALT (4-49) U/L Total Protein (6.3-8.2) g/dL Albumin (3.5-5.0) g/dL Vitamin B12 1204.0 H (200.0-944.0) pg/mL 05/18/20 05/18/20 05/18/20 Range/Units 06:00 06:00 06:00 WBC 13.3 H (3.8-10.6) k/uL RBC 4.21 L (4.30-5.90) m/uL MCV 103.4 H (80.0-100.0) fL Plt Count 139 L (150-450) k/uL Neutrophils # 12.0 H (1.3-7.7) k/uL Lymphocytes # 0.6 L (1.0-4.8) k/uL INR 1.2 H (<1.2) Sodium 133 L (137-145) mmol/L Carbon Dioxide 34 H (22-30) mmol/L BUN 38 H (9-20) mg/dL Creatinine 1.43 H (0.66-1.25) mg/dL Glucose 111 H (74-99) mg/dL POC Glucose (mg/dL) (75-99) mg/dL Calcium 8.0 L (8.4-10.2) mg/dL TIBC (228-460) ug/dL % Saturation (15.00-50.00) Ferritin (22.0-322.0) ng/mL ALT 73 H (4-49) U/L Total Protein 4.8 L (6.3-8.2) g/dL Albumin 2.5 L (3.5-5.0) g/dL Vitamin B12 (200.0-944.0) pg/mL //20 Range/Units 06:10 WBC (3.8-10.6) k/uL RBC (4.30-5.90) m/uL MCV (80.0-100.0) fL Plt Count (150-450) k/uL Neutrophils # (1.3-7.7) k/uL Lymphocytes # (1.0-4.8) k/uL INR (<1.2) Sodium (137-145) mmol/L Carbon Dioxide (22-30) mmol/L BUN (9-20) mg/dL Creatinine (0.66-1.25) mg/dL Glucose (74-99) mg/dL POC Glucose (mg/dL) 107 H (75-99) mg/dL Calcium (8.4-10.2) mg/dL TIBC (228-460) ug/dL % Saturation (15.00-50.00) Ferritin (22.0-322.0) ng/mL ALT (4-49) U/L Total Protein (6.3-8.2) g/dL Albumin (3.5-5.0) g/dL Vitamin B12 (200.0-944.0) pg/mL Microbiology - Last 24 Hours (Table) 05/11/20 09:50 Blood Culture - Final Blood No Growth after 144 hours 05/11/20 09:45 Blood Culture - Final Blood No Growth after 144 hours Assessment and Plan Assessment: (1) large Pericardial effusion with early cardiac tamponade, status post emergent percutaneous pericardial drain , cytology reporting metastatic adenocarcinoma Current Visit: Yes Status: Acute Code(s): I31.3 - PERICARDIAL EFFUSION (NONINFLAMMATORY) SNOMED Code(s): 850411184 (2) Acute kidney injury, cardiorenal Current Visit: Yes Status: Acute Code(s): N17.9 - ACUTE KIDNEY FAILURE, UNSPECIFIED SNOMED Code(s): 80827315 (3) COPD exacerbation Current Visit: Yes Status: Acute Code(s): J44.1 - CHRONIC OBSTRUCTIVE PULMONARY DISEASE W (ACUTE) EXACERBATION SNOMED Code(s): 399432381 (4) Pneumonia, sputum cultures reporting pseudomonas aeruginosa Current Visit: No Status: Acute Code(s): J18.9 - PNEUMONIA, UNSPECIFIED ORGANISM SNOMED Code(s): 227897033 (5) Shortness of breath Current Visit: Yes Status: Acute Code(s): R06.02 - SHORTNESS OF BREATH SNOMED Code(s): 235793021 (6) Edema, peripheral Current Visit: Yes Status: Acute Code(s): R60.9 - EDEMA, UNSPECIFIED SNOMED Code(s): 822443265 (7) hypokalemia secondary to diuretics (8) lactic acidosis, improved (9) acute metabolic encephalopathy secondary to hypoxia (10) acute hypoxic respiratory failure secondary to #1 (11) nicotine dependence, [id number] ,quit smoking 2 weeks ago (12) Lung nodules, being followed outpatient with Dr. Nicole (13) history of prostate cancer, skin cancer (14) chronic deafness (15) leukocytosis, possibly secondary to sepsis related to #1 (16) oral candidasis Plan: Continue on current medication regime ,monitoring and symptomatic treatment.PSA, brain CT pending .EGD and colonoscopy this afternoon. Maintain fluid restrictions. Diuretics as per nephrology.continue antibiotics as per Infectious disease.Close monitoring of renal function,electrolytes with repeat labs ordered for a.m. Prognosis guarded given multiple complex medical issues. The impression and plan of care has been dictated as directed. : I performed a history and examination of this patient, discussed the same with the dictator. I agree with the dictator's note ,documented as a scribe. Any additional findings or plans will be noted.
--- NOTE | 2020-05-18 12:28 | P.PN ---
Subjective Progress Note Date: 05/18/20 Principal diagnosis: Large pericardial effusion with early tamponade The patient is seen today 05/12/2020 in follow-up on the selective care unit. He is currently resting fairly comfortably in bed. Awake and alert in no acute distress. He does have a worsening congested cough. Some shortness of breath. Currently on 5 L high flow nasal cannula to maintain O2 saturations in the 90s. He is afebrile. Hemodynamically stable. Blood cultures reveal no growth. Paracardial fluid cytology pending. Fluid analysis revealed significant bloody fluid with high WBCs. Exudative in nature with high-protein high LDH. White count 25.4. Hemoglobin 13.0. Sodium 135. Potassium 3.4. Creatinine 1.87. MAXWELL, p-ANCA, c-ANCA, DNA antibodies all negative. Infectious diseases been c onsulted. Follow up echocardiogram reveals trivial pericardial effusion. Plan is for possible catheter removal today. Minimal output. The patient is seen today 05/13/2020 in follow-up on the selective care unit. He is currently resting quite comfortable in bed. Awake and alert in no acute distress. Breathing a little easier today compared to yesterday. Maintaining O2 saturations in the low 90s on 3 L/m per nasal cannula. He's been afebrile. Hemodynamically stable. Pericardial catheter was removed yesterday. Pathology pending. Computed tomography scan of the chest reveals small to moderate bilateral pleural effusions with compressive atelectasis with coarse interstitial infiltrates. Previously described nodules are scattered with the exception of right apical scar or nodule 7 mm. Being followed in the outpatient setting. Blood culture reveals no growth to date. Sputum culture pending. White count 17.7. Hemoglobin 13.0. Sodium 134. Potassium 3.5. Creatinine 1.68. He remains on Symbicort, bronchodilators, IV Solu-Medrol. Antibiotics in the form of daptomycin and cefepime. He remains on a Lasix drip at 10 mg an hour. The patient is seen today 05/14/2020 in follow-up on the selective care unit. He is awake and alert in no acute distress. Breathing easier today compared to yesterday. Less congested. Maintaining O2 saturations in the 90s on 3 L/m per nasal cannula. Afebrile. Hemodynamically stable. Cytology from pericardial fluid is pending. Blood cultures reveal no growth. Sputum culture with gram- negative bacilli. White count 14.1. Hemoglobin 12.6. Platelets 136,000. Sodium 134. Potassium 3.3. Bicarb 42. Creatinine 1.68. He remains on Symbicort, DuoNeb inhalations, IV Solu-Medrol. He is currently on cefepime and daptomycin. ID is on the case. On 05/15/2020 patient seen in follow-up on selective care unit, is awake and alert, currently on 3 L of oxygen with a pulse ox of 93%, no fever or chills, radiating seems to be comfortable, cytology of the pericardial fluid showed malignant cells consistent with metastatic adenocarcinoma. Patient also remains on antibiotics for pseudomonas aeruginosa in the sputum cultures. Current coverage is with cefepime, ID service is following, patient remains on breathing treatments, IV steroids and Symbicort. On 05/16/2020 patient seen in follow-up on the selective care unit, pericardial fluid cytology showed malignant cells consistent with metastatic adenocarcinoma with unknown primary. Medical oncology has been consulted. Breathing ruiz patient is doing better, still has a wet congested cough, vitals are stable, patient is currently on 2 L of oxygen a pulse ox of 97%, denies any fever or chills, denies any chest pain. Today's chest x-ray shows cardiomegaly and chronic emphysematous changes with small bilateral pleural effusions and bibasilar atelectasis. Today's labs have been reviewed, electrolytes appear to be stable, and renal profile is stable. No nausea vomiting or diarrhea, results of the cytology were discussed with the patient, and Dr. Trejo was in the room, zelalem stuart was informed of the need to complete the workup to determine primary origin of the metastatic adenocarcinoma. On 05/17/2020 patient seen in follow-up on selective care unit, he is on 2 L of oxygen the pulse ox of 96%, he states his breathing has significantly improved since admission. Appears to be comfortable, no complaints of chest pain. Patient was found to have metastatic adenocarcinoma with unknown primary, currently undergoing workup to determine primary origin. Surgery has been consulted, and patient is scheduled for EGD and colonoscopy tomorrow. Lung sounds reveal slightly coarse breath sounds. Today's labs have been reviewed, showing white blood cell count of 15.6, hemoglobin of 13.7, sodium is 136, potassium is 4.3, chloride is 99, CO2 36, BUN of 51, creatinine is 1.62. CEA level was elevated at 88.1, CA 199 was within normal limits at 1.5. Patient remains on antibiotics for pulmonary pseudomonal infection. He's had no fever or chills The patient is seen today 05/18/2020 in follow-up on the selective care unit. He is currently resting comfortably in bed. Awake and alert in no acute distress. No worsening shortness of breath, cough or congestion. He is maintaining O2 saturations in the low 90s on room air. He's been afebrile. Hemodynamically stable. Abdominal MRI revealed marketed generalized anasarca. Moderate effusions with adjacent atelectasis and/or consolidation. Small pericardial effusion measuring 8-9 mm thick. There are no suspicious lesions of the solid abdominal viscera. Small hiatal hernia. Plan is for EGD/colonoscopy today. Sputum culture positive for pseudomonas. White count 13.3. Hemoglobin 13.8. Sodium 133. Creatinine 1.43. Currently on cefepime. Objective - Vital Signs Vital signs: Vital Signs Temp 97.9 F 05/18/20 08:00 Pulse 69 05/18/20 12:00 Resp 16 05/18/20 12:00 BP 110/59 05/18/20 12:00 Pulse Ox 92 L 05/18/20 12:00 Intake & Output 05/17/20 05/18/20 05/18/20 18:59 06:59 18:59 Intake Total 500 Output Total 804 375 Balance -304 -375 Weight 89.5 kg 84.5 kg Intake: Oral 500 Output: Urine 804 375 Other: Voiding Method Urinal Urinal Urinal Diaper Diaper # Voids 2 1 # Bowel Movements 2 2 - Exam GENERAL EXAM: Alert, very pleasant, 74-year-old gentleman, on room air, comfortable in no apparent distress. HEAD: Normocephalic/atraumatic. EYES: Normal reaction of pupils, equal size. Conjunctiva pink, sclera white. NOSE: Clear with pink turbinates. THROAT: No erythema or exudates. NECK: No masses, no JVD, no thyroid enlargement, no adenopathy. CHEST: No chest wall deformity. Symmetrical expansion. Anterior left chest triple-lumen catheter removed. LUNGS: Equal air entry with few scattered rhonchi, basilar crackles. CVS: Regular rate and rhythm, normal S1 and S2, no gallops, no murmurs, no rubs ABDOMEN: Soft, nontender. No hepatosplenomegaly, normal bowel sounds, no guarding or rigidity. EXTREMITIES: No clubbing, no edema, no cyanosis, 2+ pulses and upper and lower extremities. MUSCULOSKELETAL: Muscle strength and tone normal. SPINE: No scoliosis or deformity SKIN: No rashes CENTRAL NERVOUS SYSTEM: No focal deficits, tone is normal in all 4 extremities. PSYCHIATRIC: Alert and oriented -3. Appropriate affect. Intact judgment and insight. - Labs CBC & Chem 7: 05/18/20 06:00 05/18/20 06:00 Labs: Abnormal Lab Results - Last 24 Hours (Table) 05/17/20 05/17/20 05/18/20 Range/Units 17:08 20:22 06:00 WBC (3.8-10.6) k/uL RBC (4.30-5.90) m/uL MCV (80.0-100.0) fL Plt Count (150-450) k/uL Neutrophils # (1.3-7.7) k/uL Lymphocytes # (1.0-4.8) k/uL INR (<1.2) Sodium 133 L (137-145) mmol/L Carbon Dioxide 34 H (22-30) mmol/L BUN 38 H (9-20) mg/dL Creatinine 1.43 H (0.66-1.25) mg/dL Glucose 111 H (74-99) mg/dL POC Glucose (mg/dL) 111 H 147 H (75-99) mg/dL Calcium 8.0 L (8.4-10.2) mg/dL ALT 73 H (4-49) U/L Total Protein 4.8 L (6.3-8.2) g/dL Albumin 2.5 L (3.5-5.0) g/dL 05/18/20 05/18/20 05/18/20 Range/Units 06:00 06:00 06:10 WBC 13.3 H (3.8-10.6) k/uL RBC 4.21 L (4.30-5.90) m/uL MCV 103.4 H (80.0-100.0) fL Plt Count 139 L (150-450) k/uL Neutrophils # 12.0 H (1.3-7.7) k/uL Lymphocytes # 0.6 L (1.0-4.8) k/uL INR 1.2 H (<1.2) Sodium (137-145) mmol/L Carbon Dioxide (22-30) mmol/L BUN (9-20) mg/dL Creatinine (0.66-1.25) mg/dL Glucose (74-99) mg/dL POC Glucose (mg/dL) 107 H (75-99) mg/dL Calcium (8.4-10.2) mg/dL ALT (4-49) U/L Total Protein (6.3-8.2) g/dL Albumin (3.5-5.0) g/dL Microbiology - Last 24 Hours (Table) 05/11/20 09:50 Blood Culture - Final Blood No Growth after 144 hours 05/11/20 09:45 Blood Culture - Final Blood No Growth after 144 hours Assessment and Plan Assessment: #1. Large pericardial effusion with early tamponade, status post emergent percutaneous pericardial drain insertion under echo guidance, postop day 1, with immediate removal of 850 ML of bloody pericardial fluid which was positive for metastatic adenocarcinoma with nonspecific pattern, potential primaries include upper GI/pancreatic or biliary tract versus lung adenocarcinoma. Plan is for EGD/colonoscopy today. MRI of the abdomen did not reveal any metastasis in the abdominal organs. #2. Acute hypoxic respiratory failure secondary to bilateral pleural effusions and compressive atelectasis. Sputum positive for pseudomonas aeruginosa #3. Acute kidney injury, improved, current creatinine 1.43 #4. Mild plasma lactic acidosis, improved #5. History of COPD, with baseline FEV1 of 34% of predicted #6. Long history of smoking, currently in remission for last 3 weeks, carries [id number] smoking history #7. Pulmonary nodules, abdomen followed by Dr. Nicole, and are stable #8. Significant lower extremity edema with no evidence of DVT #9. History of prostate cancer #10. Restless leg syndrome #11. Chronic deafness Plan: The patient was seen and evaluated by Dr. Nicole EGD/colonoscopy today Abdominal MRI with no evidence of metastasis, positive anasarca Continue pulmonary medications, on room air Currently on cefepime Oncology is on the case We'll continue to follow I, the cosigning physician, performed a history & physical examination of the patient. Lungs sounds with basilar crackles, few scattered rhonchi. Maintaining good O2 saturations in the 90s on room air. I discussed the assessment and plan of care with my nurse practitioner, Linh Way. I attest to the above note as dictated by her.
--- NOTE | 2020-05-18 12:56 | P.PN ---
Subjective Progress Note Date: 05/18/20 Principal diagnosis: Malignant Pericardial Effusion Renal Function continues to improve. MRI of the abdomen did not reveal any definitive abnormality to identify a primary malignancy location. Generalized anasarca change, moderate effusions with adjacent atelectasis and/or conso lidation. Pericardial effusion again seen but small at 8-9mm. No identified abnormality of the liver, Pancreas, kidneys or adrenal glands. He has just returned from colonscopy and EGD, no obvious malignant findings per operative note. Patient is hungry and eager to eat and be discharged. Objective - Vital Signs Vital signs: Vital Signs Temp 97.9 F 05/18/20 08:00 Pulse 69 05/18/20 12:00 Resp 16 05/18/20 12:00 BP 110/59 05/18/20 12:00 Pulse Ox 92 L 05/18/20 12:00 Intake & Output 05/17/20 05/18/20 05/18/20 18:59 06:59 18:59 Intake Total 500 Output Total 804 375 Balance -304 -375 Weight 89.5 kg 84.5 kg Intake: Oral 500 Output: Urine 804 375 Other: Voiding Method Urinal Urinal Urinal Diaper Diaper # Voids 2 1 # Bowel Movements 2 2 - Exam - Constitutional General appearance: cooperative, no acute distress - EENT Eyes: PERRLA, poor dentition, normal appearance ENT: hearing grossly normal, normal oropharynx - Respiratory Respiratory: bilateral: diminished (mild increased effort) - Cardiovascular Rhythm: regular Heart sounds: normal: S1, S2 leg Peripheral Edema: bilateral: 3+ - Gastrointestinal General gastrointestinal: soft, tenderness - Integumentary Integumentary: pale - Neurologic Neurologic: CNII-XII intact - Musculoskeletal Musculoskeletal: generalized weakness - Psychiatric Psychiatric: A&O x's 3, appropriate affect, intact judgment & insight - Labs CBC & Chem 7: 05/18/20 06:00 05/18/20 06:00 Labs: Abnormal Lab Results - Last 24 Hours (Table) 05/17/20 05/17/20 05/18/20 Range/Units 17:08 20:22 06:00 WBC (3.8-10.6) k/uL RBC (4.30-5.90) m/uL MCV (80.0-100.0) fL Plt Count (150-450) k/uL Neutrophils # (1.3-7.7) k/uL Lymphocytes # (1.0-4.8) k/uL INR (<1.2) Sodium 133 L (137-145) mmol/L Carbon Dioxide 34 H (22-30) mmol/L BUN 38 H (9-20) mg/dL Creatinine 1.43 H (0.66-1.25) mg/dL Glucose 111 H (74-99) mg/dL POC Glucose (mg/dL) 111 H 147 H (75-99) mg/dL Calcium 8.0 L (8.4-10.2) mg/dL ALT 73 H (4-49) U/L Total Protein 4.8 L (6.3-8.2) g/dL Albumin 2.5 L (3.5-5.0) g/dL 05/18/20 05/18/20 05/18/20 Range/Units 06:00 06:00 06:10 WBC 13.3 H (3.8-10.6) k/uL RBC 4.21 L (4.30-5.90) m/uL MCV 103.4 H (80.0-100.0) fL Plt Count 139 L (150-450) k/uL Neutrophils # 12.0 H (1.3-7.7) k/uL Lymphocytes # 0.6 L (1.0-4.8) k/uL INR 1.2 H (<1.2) Sodium (137-145) mmol/L Carbon Dioxide (22-30) mmol/L BUN (9-20) mg/dL Creatinine (0.66-1.25) mg/dL Glucose (74-99) mg/dL POC Glucose (mg/dL) 107 H (75-99) mg/dL Calcium (8.4-10.2) mg/dL ALT (4-49) U/L Total Protein (6.3-8.2) g/dL Albumin (3.5-5.0) g/dL Microbiology - Last 24 Hours (Table) 05/11/20 09:50 Blood Culture - Final Blood No Growth after 144 hours 05/11/20 09:45 Blood Culture - Final Blood No Growth after 144 hours Assessment and Plan (1) History of prostate cancer Current Visit: Yes Status: Acute Code(s): Z85.46 - PERSONAL HISTORY OF MALIGNANT NEOPLASM OF PROSTATE SNOMED Code(s): 144281403 (2) Adenocarcinoma Current Visit: Yes Status: Acute Code(s): C80.1 - MALIGNANT (PRIMARY) NEOPLASM, UNSPECIFIED SNOMED Code(s): 666094668 (3) Acute kidney injury Current Visit: Yes Status: Acute Code(s): N17.9 - ACUTE KIDNEY FAILURE, UNSPECIFIED SNOMED Code(s): 85239540 (4) Edema of both lower extremities due to peripheral venous insufficiency Current Visit: Yes Status: Acute Code(s): I87.2 - VENOUS INSUFFICIENCY (CHRONIC) (PERIPHERAL) SNOMED Code(s): 47073294151229916 (5) Pericardial effusion without cardiac tamponade Current Visit: Yes Status: Acute Code(s): I31.3 - PERICARDIAL EFFUSION (NONINFLAMMATORY) SNOMED Code(s): 688710112 Plan: Assessment and recommendations: Malignant Pericardial Effusion: - Status Post Pericardial Effusion 850cc off on 05/09/20 positive cytology for adenocarcinoma - Primary site not currently known - Work-up in progress - CEA increased 88.1 - Cardiology following, plan for pericardial window per CTS History of prostate Cancer in 02/2019 with radical prostatectomy - PSA is pending Renal Insufficiency: Improving - Nephrology is following Increased LDH: - Uric Acid stable 7 Increased LFTs: - MRI abdomen shows no abnormality in liver, pancrease, kidneys or adrenal glands - Mild distention in gallbladder, no wall thickening or surrounding per read. - GI is following Tobacco Abuse - Cessation plan discussed and advised Pseudomonas Pneumonia: - Antibiotics per ID team. Plan: - Awaiting MRI Brain, EGD and Colonoscopy - Continue supportive care during initial work-up for primary malignancy - Bone Scan tomorrow - Will Schedule PET as outpatient and Follow-up with Dr. Trejo within two weeks
[2020-05-18] MEDS ORDERED: IV FLUID CONTINUATION 1,000 ML IV ONE (13:28)
--- NOTE | 2020-05-18 14:05 | P.PCN ---
Date of Procedure: 05/18/20 Procedure(s) Performed: PREOPERATIVE DIAGNOSIS: Metastatic adenocarcinoma POSTOPERATIVE DIAGNOSIS: Duodenitis with small ulcer, gastritis, small hiatal hernia, distal esophagitis with segment of Pavon's esophagus, normal colon PROCEDURE: 1. EGD with biopsy 2. Colonoscopy ANESTHESIA: [facility] SURGEON: Corby Marroquin M.D. SPECIMENS: Duodenum, antrum, distal esophagus ENDOSCOPIC PROCEDURE: The patient was on the endoscopy table in the left decubitus position. The Olympus gastroscope was inserted into the oropharynx and passed under direct visualization to the region of the third portion of the duodenum. From that point the scope was slowly withdrawn inspecting all surfaces carefully. There was noted to be duodenitis involving the first and second portion of the duodenum with a superficial ulcer. There was some elevation of mucosal folds around this and biopsies were taken of the surrounding tissues. The pylorus was widely patent. The stomach was inspected. Mild gastritis was seen. Biopsies of the antrum took place. Retroflexion revealed a small hiatal hernia. The patient's esophagus revealed findings of Pavon's esophagus and distal esophagitis. The Pavon's esophagus was 3 cm in length. There were some ulcerations noted. Numerous biopsies were taken. The proximal esophagus was normal. The patient was kept on the endoscopy table in the left decubitus position. The Olympus colonoscope was inserted into the anus and passed under direct visualization to the base of the cecum. The appendiceal orifice was visualized. From that point the scope was slowly withdrawn inspecting all surfaces carefully. There were no neoplastic inflammatory or polypoid lesions throughout the cecum, ascending, transverse, descending, sigmoid and rectum. There was no visible diverticulosis noted. Digital rectal examination was normal. The patient was taken to the recovery room in stable condition per anesthesia guidelines. RECOMMENDATIONS: Await biopsy results. Both the duodenum and the distal esophagus could be potential although somewhat unlikely sources of the patient's recent metastatic adenocarcinoma. Resume diet. Continue antiacid therapy.
[2020-05-18] MEDS ORDERED: PROPOFOL 10 MG/ML 20 ML VIAL IV ONE (15:26)
[2020-05-18 16:46] LABS: Glucose,Whole Blood 155 mg/dL (75-99)
--- NOTE | 2020-05-18 17:04 | PN ---
PROGRESS NOTE DATE OF SERVICE: 05/18/2020 REASON FOR FOLLOWUP: Leukocytosis and possible pneumonia. INTERVAL HISTORY: Patient is currently afebrile, has been breathing comfortably on room air. Denies having any chest pain. Occasional cough; no worsening. No nausea, no vomiting. No abdominal pain or diarrhea. PHYSICAL EXAMINATION: Blood pressure 110/59 with a pulse of 69. Temperature is 97.9. He is 92% on room air. General description is an elderly male lying in bed in no distress. RESPIRATORY SYSTEM: Unlabored breathing. Clear to auscultation anteriorly. HEART: S1, S2. Regular rate and rhythm. ABDOMEN: Soft. No tenderness. LABS: Hemoglobin is 13.8, white count 13.3, BUN of 38, creatinine 1.43. DIAGNOSTIC IMPRESSION AND PLAN: Patient with leukocytosis which is multifactorial in this patient who did have a possible component of pneumonia. Sputum has been pseudomonas. On cefepime. Switch therapy to oral Cipro on discharge. Continue with supportive care. MMODL / IJN: [id number] /
[2020-05-18 20:39] LABS: Glucose,Whole Blood 225 mg/dL (75-99)
[2020-05-18] MEDS: clonazePAM 0.5 MG TAB PO SCH (20:47)
[2020-05-18] MEDS: MELATONIN 5 MG TABLET PO SCH (20:48)
[2020-05-18 21:04] VITALS: RESP 18
[2020-05-19 01:37] VITALS: TEMP 98.1
[2020-05-19 06:17] LABS: Glucose,Whole Blood 122 mg/dL (75-99)
[2020-05-19] MEDS: INSULIN ASPART (NovoLOG) 100 UNIT/ML VIAL SQ SCH ×2 (06:35→13:25)
[2020-05-19] MEDS: SODIUM CHLORIDE 0.9% 1,000 ML IV SCH (06:35)
[2020-05-19] MEDS: IPRATROPIUM-ALBUTEROL 3 ML NEB INHALATION SCH ×3 (06:58→16:09)
[2020-05-19] MEDS: SYMBICORT 160-4.5 MCG INHALER INHALATION SCH (06:58)
[2020-05-19 07:09] LABS: Magnesium 2.3 mg/dL (1.6-2.3); Potassium 3.8 mmol/L (3.5-5.1)
[2020-05-19] MEDS: acetaZOLAMIDE 250 MG TAB PO SCH (09:09)
[2020-05-19] MEDS: PANTOPRAZOLE 40 MG TABLET PO SCH (09:09)
[2020-05-19] MEDS: METOPROLOL TARTRATE 25 MG TAB PO SCH (09:09)
[2020-05-19] MEDS: CEFEPIME 2 GM in SODIUM CHLORIDE 0.9% 100 ML IVPB SCH (09:09)
[2020-05-19] MEDS: methylPREDNISolone SOD SUCCI 40 MG/ML 1 ML VIAL IV SCH (09:10)
[2020-05-19] MEDS: NYSTATIN 100,000 UNIT/ML SUSP 500,000 UNIT/5 ML CUP PO SCH ×2 (09:10→13:25)
[2020-05-19] MEDS: FUROSEMIDE 10 MG/ML 4 ML VIAL IV SCH (09:10)
[2020-05-19] MEDS: SENNOSIDES-DOCUSATE SODIUM 1 EACH TAB PO SCH (09:17)
[2020-05-19] MEDS: DOCUSATE 100 MG CAP PO SCH (09:17)
--- NOTE | 2020-05-19 09:54 | P.PN ---
Progress Note - Text Progress Note Date: 05/19/20 The patient resting comfortably in his bed. He underwent EGD and colonoscopy yesterday. Biopsy results are pending. He is scheduled for MRI today. On exam vital signs are still. Abdomen soft. Patient is undergoing workup for metastatic adenocarcinoma of unknown origin. We will continue to follow.
--- NOTE | 2020-05-19 10:17 | P.PN ---
Subjective Patient is seen in follow-up for acute kidney injury. Renal function is fairly stable. Currently maintained on IV Lasix 40 mg every 8 hours. Edema improving. Oral intake fair. Admits to good urine output. No chest pain or shortness of breath. Hemodynamically stable. No changes overnight. Vital signs are stable. General: The patient appeared well nourished and normally developed. HEENT: Head exam is unremarkable. Neck is without jugular venous distension. LUNGS: Breath sounds decreased. HEART: Rate and Rhythm are regular. ABDOMEN: Soft, nontender. EXTREMITITES: 1+ edema. Objective - Vital Signs Vital signs: Vital Signs Temp 98.1 F 05/19/20 04:00 Pulse 76 05/19/20 07:09 Resp 18 05/19/20 04:00 BP 109/59 05/19/20 04:00 Pulse Ox 95 05/19/20 04:00 Intake & Output 05/18/20 05/19/20 05/19/20 18:59 06:59 18:59 Intake Total 200 290 Balance 200 290 Weight 82 kg Intake: IV 200 Oral 290 Other: Voiding Method Urinal Urinal Diaper Diaper # Voids 1 1 # Bowel Movements 1 - Labs CBC & Chem 7: 05/18/20 06:00 05/19/20 06:21 Labs: Abnormal Lab Results - Last 24 Hours (Table) 05/17/20 05/18/20 05/18/20 Range/Units 05:30 16:43 20:37 Sodium (137-145) mmol/L Carbon Dioxide (22-30) mmol/L BUN (9-20) mg/dL Creatinine (0.66-1.25) mg/dL Glucose (74-99) mg/dL POC Glucose (mg/dL) 155 H 225 H (75-99) mg/dL Calcium (8.4-10.2) mg/dL Methylmalonic Acid 0.77 H (<0.40) umol/L 05/19/20 05/19/20 Range/Units 06:16 06:21 Sodium 136 L (137-145) mmol/L Carbon Dioxide 31 H (22-30) mmol/L BUN 41 H (9-20) mg/dL Creatinine 1.50 H (0.66-1.25) mg/dL Glucose 114 H (74-99) mg/dL POC Glucose (mg/dL) 122 H (75-99) mg/dL Calcium 8.0 L (8.4-10.2) mg/dL Methylmalonic Acid (<0.40) umol/L Assessment and Plan Plan: assessment: 1. Acute kidney injury secondary to ATN secondary to cardiorenal syndrome. Renal function stable. Creatinine 1.5 today. UA benign. 2. Acute on chronic systolic CHF with ejection fraction of 40-45%. 3. Pericardial effusion status post pericardiocentesis. 4. Volume overload. Improving with diuresis. 5. Hypervolemic hyponatremia. Better. 6. Metabolic alkalosis secondary to diuresis maintained on Diamox. Improved. 7. Hypokalemia secondary to diuresis status post for placement. Better. 8. Pericardial fluid cytology positive for metastatic adenocarcinoma. Oncology following. No metastatic lesion noted on MRI of abdomen. EGD revealed duodenitis with small ulcer and small segment of Pavon's esophagus. Colonoscopy normal. Plan: Stop IV Lasix. Start Lasix 40 mg orally twice daily. Discontinue Diamox. Low-salt diet and 1.5 L fluid restriction. Continue to monitor renal function and urine output.
[2020-05-19 11:52] LABS: Glucose,Whole Blood 116 mg/dL (75-99)
--- NOTE | 2020-05-19 13:10 | P.PN ---
Subjective Progress Note Date: 05/19/20 05/09/2020 74-year-old male patient presented emergency room ambulatory chief complaint of shortness of breath. In ER chest x-ray showed small pleural effusions are essentially new compared to all exam no gross heart failure. He has had a long-standing history of COPD, and noted history of smoking. He quit approximately 3 weeks ago at the onset of current symptoms. He was seen in emergency room for similar complaint earlier in the month and he has been seen in the office twice once for ER follow-up and the other for recheck. From the office he was started on 80 mg of Lasix as well as clarithromycin. With taking medications he stated there was no improvement in his symptoms and his fatigue worsened. He was also ordered a rescue inhaler but had minimal improvement with its use. He denied chest pain, unilateral numbness or weakness, orthopnea. Continue to have bilateral lower extremity peripheral edema. He has no history of hypertension, DVT or PE, denies history of heart failure, does not utilized home O2, denies fever or chills. He he denied cough and arrival in ER. Past medical history of cancer, COPD, heart appearing as related to being in the , prostate disorder, every day smoker up until current sickness. Is also noted to have a right hip. Echocardiogram this morning showed ejection fraction 40-45% with very mild left ventricular hypokinesis. Is also noted to have large global pericardial effusion without tamponade. Appears cardiology was on hand at time of echo and consulted cardiothoracic for evaluation. Dr. Jimenez saw patient in room and performed a percutaneous pericardial drainage with echo guidance in which he 850 ml of bloody pericardial fluid was drained and sent for cytology, LDH, protein, glucose. Venous Doppler duplex lower summary bilaterally was completed today impression showed early to moderate diffuse subcutaneous edema greatest towards the periphery bilaterally without acute DVT in either extremity. Current labs WBC of 19.3, hemoglobin 13.8, hematocrit 42.1, platelet count 214, neutrophils 16.1, monocytes 1.4, PT of 12.8, INR 1.3, d-dimer 1.95. Chemistry revealed a sodium 131, potassium 4.0, chloride 92, bun 97, creatinine of 2.99, lactic acid initially was 3.0 and resuscitated down to 1.9. AST 120, [place] T [place] for, initial troponin 0.0-6, which elevated later to 0.083. Most recent chart of vitals afebrile 98.2, pulse rate of 92 normal sinus rhythm, respiratory rate of 22, blood pressure 120/72, oxygen saturation 96% on 2 L nasal cannula. 05/11/2020 worsening shortness of breath, desatted into the 80s, O2 increased from 3 L to 5 L this morning, maintaining O2 sats of 91-92% currently. Nonproductive cough. Pericardial cytology pending. Last night drained approximately 50 MLS and trace drainage this morning .Mild confusion with desaturation. Worsening edema. Chest x-ray reporting increased small pleural effusions with prominent by bibasilar atelectasis/consolidation .Converted from Lasix IV push to Lasix drip. Afebrile, WBC up to 24. Complains of left chest pericardial drain site pain. Renal function is slowly improving, down to 2.35. Potassium 3.2. 05/12/2020 diuresing well on Lasix drip with 24-hour I&O reflecting a negative fluid balance. Maintained on nebulized bronchodilators with the addition of IV steroids. Continues on 5 L nasal cannula, maintaining O2 sats in the 90s. Prod uctive cough with thick yellow sputum, collected for culture. Blood cultures reporting no growth. Pericardial cytology pending. Fluid analysis exudative. WBC trending up, 25.4, afebrile.infectious disease consulted , daptomycin and cefepime initiated.Pain controlled. No drainage from pericardial drain, repeat echo performed this morning reporting trivial pericardial effusion. Renal function improving down to 1.87. Potassium 3.4. 05/15/2020 pericardial fluid cytology reporting metastatic adenocarcinoma. Pericardial drain discontinued over the weekend. Diuresing well on Lasix IV push with 24-hour I&O reflecting a negative fluid balance. Significant clinical improvement. Ambulating, tolerating exertion well. Renal function continues to improve down to 1.7. VSS. Oxygen has been weaned down to 3 L nasal cannula, maintaining O2 sats in the 90s. IS up to 1500. Afebrile, WBC 14.8 on cefepime 05/16/2020 metastatic adenocarcinoma discussed with patient, etiology unclear, possible lungs, upper GI/pancreatic or biliary/colon. Evaluated by oncology with recommendations of completing the workup to determine primary origin. Continues diuresing well on Lasix IV push, tarry same with 24-hour I&O reflecting a negative fluid balance. Creatinine maintained on 1.7. Chest x-ray reporting no significant change from prior studies. Maintaining O2 sats in the 90s on 2 L nasal cannula. IS up to 1500. Afebrile. 05/17/2020 scheduled for MRI of abdomen/pelvis this afternoon. Evaluated by Dr. Marroquin, scheduled for EGD and colonoscopy tomorrow. Continues on cefepime for pseudomonas in sputum. CEA level elevated at 88.1, CA 199 WNL. Denies chest pain, palpitations or shortness of breath. Denies abdominal pain. Renal function slowly trending down, 1.62. Maintaining O2 sats in the 90s on 2 L nasal cannula. 05/18/2020 MRI of the abdomen did not reveal primary site of cancer, reported moderate stool, generalized anasarca, moderate effusions, small pericardial effusion with no definite suspected lesion.NPO, scheduled for both EGD and colonoscopy this afternoon. PSA level pending. Brain CT pending. Secondary to patient's renal function, CT of chest with contrast has not yet been performed. Outpatient PET scan possibly. Creatinine down to 1.43. Maintained on cefepime for Pseudomonas and sputum, questionable pneumonia. Diuresing well on Lasix IV push with 24-hour I&O reflecting a negative fluid balance. 05/19/2020 Workup for metastatic adenocarcinoma in progress. completed EGD and colonoscopy yesterday reporting duodenitis with small ulcer, gastritis, small hiatal hernia with distal esophagitis, Pavon's esophagus. Scheduled for MRI of brain this afternoon. Diuresing well on Lasix IV push, renal function stable. Continues on cefepime. Denies chest pain, palpitations or shortness of breath. Objective - Vital Signs Vital signs: Vital Signs Temp 98.1 F 05/19/20 04:00 Pulse 76 05/19/20 07:09 Resp 18 05/19/20 04:00 BP 109/59 05/19/20 04:00 Pulse Ox 95 05/19/20 04:00 Intake & Output 05/18/20 05/19/20 05/19/20 18:59 06:59 18:59 Intake Total 200 290 Balance 200 290 Weight 82 kg Intake: IV 200 Oral 290 Other: Voiding Method Urinal Urinal Diaper Diaper # Voids 1 1 # Bowel Movements 1 - Exam GENERAL: Sitting up in bed, no acute distress HEAD: Atraumatic, normocephalic. EYES: Pupils equal round and reactive to light,conjunctiva are normal. ENT:nares patent, oropharynx clear without exudates. Oral mucosa moist NECK: Normal range of motion, no JVD LUNGS: Breath sounds diminished, HEART: Regular rate and rhythm without murmurs, rubs or gallops.S1,S2 Normal. ABDOMEN: Soft, nontender, normoactive bowel sounds. No guarding, no rebound. EXTREMITIES: Normal range of motion, softer/decreasing edema. No clubbing or cyanosis. NEUROLOGICAL: Cranial nerves II through XII grossly intact. No focal deficits. PSYCH: Normal mood, normal affect. SKIN: Warm, Dry, normal turgor, no rashes. - Labs CBC & Chem 7: 05/18/20 06:00 05/19/20 06:21 Labs: Abnormal Lab Results - Last 24 Hours (Table) 05/17/20 05/18/20 05/18/20 Range/Units 05:30 16:43 20:37 Sodium (137-145) mmol/L Carbon Dioxide (22-30) mmol/L BUN (9-20) mg/dL Creatinine (0.66-1.25) mg/dL Glucose (74-99) mg/dL POC Glucose (mg/dL) 155 H 225 H (75-99) mg/dL Calcium (8.4-10.2) mg/dL Methylmalonic Acid 0.77 H (<0.40) umol/L 05/19/20 05/19/20 Range/Units 06:16 06:21 Sodium 136 L (137-145) mmol/L Carbon Dioxide 31 H (22-30) mmol/L BUN 41 H (9-20) mg/dL Creatinine 1.50 H (0.66-1.25) mg/dL Glucose 114 H (74-99) mg/dL POC Glucose (mg/dL) 122 H (75-99) mg/dL Calcium 8.0 L (8.4-10.2) mg/dL Methylmalonic Acid (<0.40) umol/L Assessment and Plan Assessment: (1) large Pericardial effusion with early cardiac tamponade, status post emergent percutaneous pericardial drain , cytology reporting metastatic adenocarcinoma. Current Visit: Yes Status: Acute Code(s): I31.3 - PERICARDIAL EFFUSION (NONINFLAMMATORY) SNOMED Code(s): 689730102 (2) Acute kidney injury, cardiorenal Current Visit: Yes Status: Acute Code(s): N17.9 - ACUTE KIDNEY FAILURE, UNSPECIFIED SNOMED Code(s): 57955270 (3) COPD exacerbation Current Visit: Yes Status: Acute Code(s): J44.1 - CHRONIC OBSTRUCTIVE PULMONARY DISEASE W (ACUTE) EXACERBATION SNOMED Code(s): 048328819 (4) Pneumonia, sputum cultures reporting pseudomonas aeruginosa Current Visit: No Status: Acute Code(s): J18.9 - PNEUMONIA, UNSPECIFIED ORGANISM SNOMED Code(s): 775652926 (5) Shortness of breath Current Visit: Yes Status: Acute Code(s): R06.02 - SHORTNESS OF BREATH SNOMED Code(s): 689900885 (6) Edema, peripheral Current Visit: Yes Status: Acute Code(s): R60.9 - EDEMA, UNSPECIFIED SNOMED Code(s): 757272939 (7) hypokalemia secondary to diuretics (8) lactic acidosis, improved (9) acute metabolic encephalopathy secondary to hypoxia (10) acute hypoxic respiratory failure secondary to #1 (11) nicotine dependence, [id number] ,quit smoking 2 weeks ago (12) Lung nodules, being followed outpatient with Dr. Nicole (13) history of prostate cancer, skin cancer (14) chronic deafness (15) leukocytosis, possibly secondary to sepsis related to #1 (16) oral candidasis (17) duodenitis with small ulcer, small segment of Pavon's esophagus per EGD. Plan: Continue on current medication regime ,monitoring and symptomatic treatment.PSA pending, brain MRI this afternoon .continue on fluid restrictions. Diuretics as per nephrology. Maintain antibiotics as per Infectious disease.Close monitoring of renal function,electrolytes with repeat labs ordered for a.m. Prognosis guarded given multiple complex medical issues. Discharge planning in progress. The impression and plan of care has been dictated as directed. : I performed a history and examination of this patient, discussed the same with the dictator. I agree with the dictator's note ,documented as a scribe. Any additional findings or plans will be noted.
[2020-05-19] MEDS ORDERED: LORazepam 2 MG/ML INJ ONE ×2 (13:18→14:43)
[2020-05-19] MEDS: LORazepam 2 MG/ML INJ IV PRN (13:24)
[2020-05-19 13:41] VITALS: BP 118/58
--- NOTE | 2020-05-19 13:44 | P.DS ---
Providers Date of admission: 05/10/20 00:18 Expected date of discharge: 05/19/20 Attending physician: Adam Ortega Consults: 05/10/20 00:19 Consult Physician Urgent Consulting Provider: Brynn Nicole Consult Reason/Comments: acute respiratory insuff, AECOPD Do you want consulting provider notified?: Yes 05/10/20 00:20 Consult Physician Urgent Consulting Provider: [facility] Consult Reason/Comments: new onset heart failure Do you want consulting provider notified?: Yes 05/10/20 05:53 Consult Physician Urgent Consulting Provider: Leonela Edwards Consult Reason/Comments: acute renal failure, oliguria Do you want consulting provider notified?: Yes 05/10/20 08:23 Consult Physician Stat Consulting Provider: Christine Jimenez Consult Reason/Comments: large pericardial effusion Do you want consulting provider notified?: Already Contacted 05/12/20 10:04 Consult Physician Stat Consulting Provider: Miguel A De Paz Consult Reason/Comments: sepsis, pericardial fluid Do you want consulting provider notified?: Yes 05/15/20 15:57 Consult Physician Routine Consulting Provider: Rex Trejo Consult Reason/Comments: metastatic adenocarcinoma, with large pericardial effusion Do you want consulting provider notified?: Yes 05/16/20 13:35 Consult Physician Routine Consulting Provider: Corby Marroquin Consult Reason/Comments: colonscopy/EGD, adenoca,evaluation for primary location of malignancy Do you want consulting provider notified?: Yes Primary care physician: [facility] Course: Final Diagnoses: (1) large Pericardial effusion with early cardiac tamponade, status post emergent percutaneous pericardial drain , cytology reporting metastatic adenocarcinoma. Current Visit: Yes Status: Acute Code(s): I31.3 - PERICARDIAL EFFUSION (NONINFLAMMATORY) SNOMED Code(s): 473904028 (2) Acute kidney injury, cardiorenal Current Visit: Yes Status: Acute Code(s): N17.9 - ACUTE KIDNEY FAILURE, UNSPECIFIED SNOMED Code(s): 93976316 (3) COPD exacerbation Current Visit: Yes Status: Acute Code(s): J44.1 - CHRONIC OBSTRUCTIVE PULMONARY DISEASE W (ACUTE) EXACERBATION SNOMED Code(s): 801131099 (4) Pneumonia, sputum cultures reporting pseudomonas aeruginosa Current Visit: No Status: Acute Code(s): J18.9 - PNEUMONIA, UNSPECIFIED ORGANISM SNOMED Code(s): 433135460 (5) Shortness of breath Current Visit: Yes Status: Acute Code(s): R06.02 - SHORTNESS OF BREATH SNOMED Code(s): 386150171 (6) Edema, peripheral Current Visit: Yes Status: Acute Code(s): R60.9 - EDEMA, UNSPECIFIED SNOMED Code(s): 798180574 (7) hypokalemia secondary to diuretics (8) lactic acidosis, improved (9) acute metabolic encephalopathy secondary to hypoxia (10) acute hypoxic respiratory failure secondary to #1 (11) nicotine dependence, [id number] ,quit smoking 2 weeks ago (12) Lung nodules, being followed outpatient with Dr. Nicole (13) history of prostate cancer, skin cancer (14) chronic deafness (15) leukocytosis, possibly secondary to sepsis related to #1 (16) oral candidasis (17) duodenitis with small ulcer, small segment of Pavon's esophagus per EGD. Hospital course:05/09/2020 74-year-old male patient presented emergency room ambulatory chief complaint of shortness of breath. In ER chest x-ray showed small pleural effusions are essentially new compared to all exam no gross heart failure. He has had a long-standing history of COPD, and noted history of smoking. He quit approximately 3 weeks ago at the onset of current symptoms. He was seen in emergency room for similar complaint earlier in the month and he has been seen in the office twice once for ER follow-up and the other for recheck. From the office he was started on 80 mg of Lasix as well as clarithromycin. With taking medications he stated there was no improvement in his symptoms and his fatigue worsened. He was also ordered a rescue inhaler but had minimal improvement with its use. He denied chest pain, unilateral numbness or weakness, orthopnea. Continue to have bilateral lower extremity peripheral edema. He has no history of hypertension, DVT or PE, denies history of heart failure, does not utilized home O2, denies fever or chills. He he denied cough and arrival in ER. Past medical history of cancer, COPD, heart appearing as related to being in the , prostate disorder, every day smoker up until current sickness. Is also noted to have a right hip. Echocardiogram this morning showed ejection fraction 40-45% with very mild left ventricular hypokinesis. Is also noted to have large global pericardial effusion without tamponade. Appears cardiology was on hand at time of echo and consulted cardiothoracic for evaluation. Dr. Jimenez saw patient in room and performed a percutaneous pericardial drainage with echo guidance in which he 850 ml of bloody pericardial fluid was drained and sent for cytology, LDH, protein, glucose. Venous Doppler duplex lower summary bilaterally was completed today impression showed early to moderate diffuse subcutaneous edema greatest towards the periphery bilaterally without acute DVT in either extremity. Current labs WBC of 19.3, hemoglobin 13.8, hematocrit 42.1, platelet count 214, neutrophils 16.1, monocytes 1.4, PT of 12.8, INR 1.3, d-dimer 1.95. Chemistry revealed a sodium 131, potassium 4.0, chloride 92, bun 97, creatinine of 2.99, lactic acid initially was 3.0 and resuscitated down to 1.9. AST 120, Whitney T O'[place] for, initial troponin 0.0-6, which elevated later to 0.083. Most recent chart of vitals afebrile 98.2, pulse rate of 92 normal sinus rhythm, respiratory rate of 22, blood pressure 120/72, oxygen saturation 96% on 2 L nasal cannula. 05/11/2020 worsening shortness of breath, desatted into the 80s, O2 increased from 3 L to 5 L this morning, maintaining O2 sats of 91-92% currently. Nonprod uctive cough. Pericardial cytology pending. Last night drained approximately 50 MLS and trace drainage this morning .Mild confusion with desaturation. Worsening edema. Chest x-ray reporting increased small pleural effusions with prominent by bibasilar atelectasis/consolidation .Converted from Lasix IV push to Lasix drip. Afebrile, WBC up to 24. Complains of left chest pericardial drain site pain. Renal function is slowly improving, down to 2.35. Potassium 3.2. 05/12/2020 diuresing well on Lasix drip with 24-hour I&O reflecting a negative fluid balance. Maintained on nebulized bronchodilators with the addition of IV steroids. Continues on 5 L nasal cannula, maintaining O2 sats in the 90s. Productive cough with thick yellow sputum, collected for culture. Blood cultures reporting no growth. Pericardial cytology pending. Fluid analysis exudative. WBC trending up, 25.4, afebrile.infectious disease consulted , daptomycin and cefepime initiated.Pain controlled. No drainage from pericardial drain, repeat echo performed this morning reporting trivial pericardial effusion. Renal function improving down to 1.87. Potassium 3.4. 05/15/2020 pericardial fluid cytology reporting metastatic adenocarcinoma. Pericardial drain discontinued over the weekend. Diuresing well on Lasix IV push with 24-hour I&O reflecting a negative fluid balance. Significant clinical improvement. Ambulating, tolerating exertion well. Renal function continues to improve down to 1.7. VSS. Oxygen has been weaned down to 3 L nasal cannula, maintaining O2 sats in the 90s. IS up to 1500. Afebrile, WBC 14.8 on cefepime 05/16/2020 metastatic adenocarcinoma discussed with patient, etiology unclear, possible lungs, upper GI/pancreatic or biliary/colon. Evaluated by oncology with recommendations of completing the workup to determine primary origin. Continues diuresing well on Lasix IV push, tarry same with 24-hour I&O reflecting a negative fluid balance. Creatinine maintained on 1.7. Chest x-ray reporting no significant change from prior studies. Maintaining O2 sats in the 90s on 2 L nasal cannula. IS up to 1500. Afebrile. 05/17/2020 scheduled for MRI of abdomen/pelvis this afternoon. Evaluated by Dr. Marroquin, scheduled for EGD and colonoscopy tomorrow. Continues on cefepime for pseudomonas in sputum. CEA level elevated at 88.1, CA 199 WNL. Denies chest pain, palpitations or shortness of breath. Denies abdominal pain. Renal function slowly trending down, 1.62. Maintaining O2 sats in the 90s on 2 L nasal cannula. 05/18/2020 MRI of the abdomen did not reveal primary site of cancer, reported moderate stool, generalized anasarca, moderate effusions, small pericardial effusion with no definite suspected lesion.NPO, scheduled for both EGD and colonoscopy this afternoon. PSA level pending. Brain CT pending. Secondary to patient's renal function, CT of chest with contrast has not yet been performed. Outpatient PET scan possibly. Creatinine down to 1.43. Maintained on cefepime for Pseudomonas and sputum, questionable pneumonia. Diuresing well on Lasix IV push with 24-hour I&O reflecting a negative fluid balance. 05/19/2020 Workup for metastatic adenocarcinoma in progress. completed EGD and colonoscopy yesterday reporting duodenitis with small ulcer, gastritis, small hiatal hernia with distal esophagitis, Pavon's esophagus. Scheduled for MRI of brain this afternoon. Diuresing well on Lasix IV push, renal function stable. Continues on cefepime. Denies chest pain, palpitations or shortness of breath. Patient will be discharged home today in a stable condition with guarded prognosis, pending MRI of brain, antibiotics as per ID. Cleared by all consults for discharge. Outpatient PET scan as per oncology. The impression and plan of care has been dictated as directed. : I performed a history and examination of this patient, discussed the same with the dictator. I agree with the dictator's note ,documented as a scribe. Any additional findings or plans will be noted. Patient Condition at Discharge: Stable Plan - Discharge Summary New Discharge Prescriptions: New Docusate [Colace] 100 mg PO BID #30 cap Metoprolol Tartrate [Lopressor] 25 mg PO TID #90 tab Pantoprazole [Protonix] 40 mg PO DAILY #30 tablet.dr Sim-Docusate Sodium [Senokot-S] 2 each PO BID #30 tab Continue Umeclidinium Brm/Vilanterol Tr [Anoro Ellipta 62.5-25 Mcg INH] 1 puff INHALATION RT-DAILY clonazePAM [KlonoPIN] 0.5 mg PO HS Multivitamin [Multivitamins Adult Gummies] 1 tab PO DAILY Melatonin 10 mg PO HS PRN PRN Reason: Insomnia Albuterol Inhaler [Ventolin Hfa Inhaler] 2 puff INHALATION RT-QID #2 puff Albuterol Nebulized [Ventolin Nebulized] 2.5 mg INHALATION RT-QID Changed Furosemide [Lasix] 40 mg PO BID #0 Discontinued Clarithromycin [Biaxin] 500 mg PO BID Discharge Medication List Melatonin 10 mg PO HS PRN 03/01/19 [History] Multivitamin [Multivitamins Adult Gummies] 1 tab PO DAILY 03/01/19 [History] Umeclidinium Brm/Vilanterol Tr [Anoro Ellipta 62.5-25 Mcg INH] 1 puff INHALATION RT-DAILY 03/01/19 [History] clonazePAM [KlonoPIN] 0.5 mg PO HS 03/01/19 [History] Albuterol Inhaler [Ventolin Hfa Inhaler] 2 puff INHALATION RT-QID #2 puff 04/27/20 [Rx] Albuterol Nebulized [Ventolin Nebulized] 2.5 mg INHALATION RT-QID 05/09/20 [History] Docusate [Colace] 100 mg PO BID #30 cap 05/19/20 [Rx] Furosemide [Lasix] 40 mg PO BID #0 05/19/20 [Rx] Metoprolol Tartrate [Lopressor] 25 mg PO TID #90 tab 05/19/20 [Rx] Pantoprazole [Protonix] 40 mg PO DAILY #30 tablet. 05/19/20 [Rx] Sennosides-Docusate Sodium [Senokot-S] 2 each PO BID #30 tab 05/19/20 [Rx] Follow up Appointment(s)/Referral(s): Rex Trejo MD [STAFF PHYSICIAN] - 1 Week Adam Ortega Jr, DO [Primary Care Provider] - 3 Days [facility] [NON-STAFF] - As Needed Brynn Nicole MD [STAFF PHYSICIAN] - 1 Week Corby Marroquin MD [Medical Doctor] - 2 Weeks (Biopsy results) Ambulatory/Diagnostic Orders: Complete Blood Count w/diff [LAB.AMB] Time Frame: 3 Days, Location: None Selected Activity/Diet/Wound Care/Special Instructions: DC antibiotics as per ID. O2 sat on room air after ambulation:88%, DC on 2 L NC O2 Pending brain MRI ,final DC recommendations and clearance from nephrology, oncology, ID. OP PET scan as per oncology
--- NOTE | 2020-05-19 14:04 | P.PN ---
Subjective Progress Note Date: 05/19/20 Principal diagnosis: Shortness of breath, large pericardial effusion with early tamponade, acute kidney injury Patient was seen and reevaluated today on 05/11/2020 on selective care unit, patient is status post urgent percutaneous pericardial drain insertion under echocardiogram guidance by cardiothoracic surgery, with the removal of over 850 mL of bloody drainage immediately, and additional 50 ML of bloody drainage last night. His breathing has improved although he feels like he can't take a full breath related to sharp pain in the chest when he takes a deep breath. Also he states he may have waited too long to ask for pain medication. Otherwise appears to be in no acute distress. This morning he is on 2 L of oxygen with pulse ox of 92%, blood pressure is 120/65, no tachycardia, heart rate is 86 BPM, mild tachypnea, but afebrile. Pericardial fluid cytology is pending. Patient remains on IV Lasix at 40 mg every 12 hours, he is in -2.7 L net fluid balance over the last 24 hours, repeat echocardiogram is pending for today. Advise have been discontinued. Remains on breathing treatments. Autoimmune serologies have been sent. Troponin was 0.026, 0.028, and 0.083. Today's labs have been reviewed showing white blood cell count of 24.1, hemoglobin of 13.1, sodium is 135, potassium is 3.2, chloride is 98, CO2 31, B1 is 98, creatinine is 2.35 On 05/15/2020 patient seen in follow-up on selective care unit, is awake and alert, currently on 3 L of oxygen with a pulse ox of 93%, no fever or chills, radiating seems to be comfortable, cytology of the pericardial fluid showed malignant cells consistent with metastatic adenocarcinoma. Patient also remains on antibiotics for pseudomonas aeruginosa in the sputum cultures. Current coverage is with cefepime, ID service is following, patient remains on breathing treatments, IV steroids and Symbicort. On 05/16/2020 patient seen in follow-up on the selective care unit, pericardial fluid cytology showed malignant cells consistent with metastatic adenocarcinoma with unknown primary. Medical oncology has been consulted. Breathing ruiz patient is doing better, still has a wet congested cough, vitals are stable, patient is currently on 2 L of oxygen a pulse ox of 97%, denies any fever or chills, denies any chest pain. Today's chest x-ray shows cardiomegaly and chronic emphysematous changes with small bilateral pleural effusions and bibasilar atelectasis. Today's labs have been reviewed, electrolytes appear to be stable, and renal profile is stable. No nausea vomiting or diarrhea, results of the cytology were discussed with the patient, and Dr. Trejo was in the room, patient was informed of the need to complete the workup to determine primary origin of the metastatic adenocarcinoma. On 05/17/2020 patient seen in follow-up on selective care unit, he is on 2 L of oxygen the pulse ox of 96%, he states his breathing has significantly improved since admission. Appears to be comfortable, no complaints of chest pain. Patient was found to have metastatic adenocarcinoma with unknown primary, currently undergoing workup to determine primary origin. Surgery has been consulted, and patient is scheduled for EGD and colonoscopy tomorrow. Lung sounds reveal slightly coarse breath sounds. Today's labs have been reviewed, showing white blood cell count of 15.6, hemoglobin of 13.7, sodium is 136, potassium is 4.3, chloride is 99, CO2 36, BUN of 51, creatinine is 1.62. CEA level was elevated at 88.1, CA 199 was within normal limits at 1.5. Patient remains on antibiotics for pulmonary pseudomonal infection. He's had no fever or chills. On 05/19/2020 patient is seen in follow-up on selective care unit, he is awaiting his MRI of the brain today, he had his EGD and colonoscopy yesterday, biopsy results are pending. No difficulty breathing, he is 2 L of oxygen the pulse ox of 90%, hemodynamically patient is stable, he is afebrile, remains on cefepime, oral Lasix, breathing treatments and steroids. Sputum culture was positive for pseudomonas. From pulmonary perspective patient's breathing has improved, no wheezing auscultated on today's exam, lung sounds are diminished, with some limited crackles at the bases. Today's labs have been reviewed, showing sodium of 136, potassium of 3.8, chloride is 102, CO2 31, BUN of 41 and creatinine is 1.5. No acute events overnight, no plans for thoracentesis today Objective - Vital Signs Vital signs: Vital Signs Temp 98.1 F 05/19/20 08:00 Pulse 72 05/19/20 10:50 Resp 18 05/19/20 08:00 BP 118/58 05/19/20 08:00 Pulse Ox 98 05/19/20 08:00 Intake & Output 05/18/20 05/19/20 05/19/20 18:59 06:59 18:59 Intake Total 200 290 Balance 200 290 Weight 82 kg Intake: IV 200 Oral 290 Other: Voiding Method Urinal Urinal Urinal Diaper Diaper Diaper # Voids 1 1 # Bowel Movements 1 - Exam GENERAL EXAM: Alert, very pleasant, 74-year-old white male, on 2 L of oxygen with a pulse ox of 96%, comfortable in no apparent distress. HEAD: Normocephalic/atraumatic. EYES: Normal reaction of pupils, equal size. Conjunctiva pink, sclera white. NOSE: Clear with pink turbinates. THROAT: No erythema or exudates. NECK: No masses, no JVD, no thyroid enlargement, no adenopathy. CHEST: No chest wall deformity. Symmetrical expansion. LUNGS: Equal air entry with no crackles, wheeze, rhonchi or dullness. CVS: Regular rate and rhythm, normal S1 and S2, no gallops, no murmurs, no rubs ABDOMEN: Soft, nontender. No hepatosplenomegaly, normal bowel sounds, no guarding or rigidity. EXTREMITIES: No clubbing, no edema, no cyanosis, 2+ pulses and upper and lower extremities. MUSCULOSKELETAL: Muscle strength and tone normal. SPINE: No scoliosis or deformity SKIN: No rashes CENTRAL NERVOUS SYSTEM: Alert and oriented -3. No focal deficits, tone is normal in all 4 extremities. PSYCHIATRIC: Alert and oriented -3. Appropriate affect. Intact judgment and insight. - Labs CBC & Chem 7: 05/18/20 06:00 05/19/20 06:21 Labs: Abnormal Lab Results - Last 24 Hours (Table) 05/17/20 05/18/20 05/18/20 Range/Units 05:30 16:43 20:37 Sodium (137-145) mmol/L Carbon Dioxide (22-30) mmol/L BUN (9-20) mg/dL Creatinine (0.66-1.25) mg/dL Glucose (74-99) mg/dL POC Glucose (mg/dL) 155 H 225 H (75-99) mg/dL Calcium (8.4-10.2) mg/dL Methylmalonic Acid 0.77 H (<0.40) umol/L 05/19/20 05/19/20 05/19/20 Range/Units 06:16 06:21 11:50 Sodium 136 L (137-145) mmol/L Carbon Dioxide 31 H (22-30) mmol/L BUN 41 H (9-20) mg/dL Creatinine 1.50 H (0.66-1.25) mg/dL Glucose 114 H (74-99) mg/dL POC Glucose (mg/dL) 122 H 116 H (75-99) mg/dL Calcium 8.0 L (8.4-10.2) mg/dL Methylmalonic Acid (<0.40) umol/L Assessment and Plan Plan: Assessment: #1. Metastatic adenocarcinoma with large pericardial effusion with early tamponade, status post emergent percutaneous pericardial drain insertion under echo guidance, with immediate removal of 850 ML of bloody pericardial fluid which was sent for analysis, cultures and cytology. There was an additional 50 ML removed from the catheter yesterday evening on 05/10/2020. Pericardial fluid cytology was positive for malignant cells consistent with metastatic adenocarcinoma with nonspecific pattern, with potential primary sources including upper GI/pancreatic or biliary tract or lung adenocarcinoma #2. Severe dyspnea acute hypoxic respiratory failure related to the above, improved #3. Acute kidney injury, slightly improved on today's labs #4. Mild plasma lactic acidosis, improved #5. History of COPD, with baseline FEV1 of 34% of predicted #6. Long history of smoking, currently in remission for last 3 weeks, carries [id number] smoking history #7. Pulmonary nodules, abdomen followed by Dr. Nicole, and are stable #8. Significant lower extremity edema with no evidence of DVT #9. History of prostate cancer #10. Restless leg syndrome #11. Chronic deafness #12. Pseudomonal pulmonary infection, currently on cefepime Plan: We will switch the IV steroids to oral prednisone, continue with antibiotics, vital signs are stable, no fever or chills, patient is completing his workup today, he is scheduled for MRI of the brain. EGD and colonoscopy were done yesterday, biopsies are pending. Clinically stable, no plans for thoracentesis, patient can follow-up in the outpatient setting with Dr. Nicole next week. he can be discharged home after his MRI of the brain is completed, obtain home oxygen assessment. I performed a history & physical examination of the patient and discussed their management with my nurse practitioner, Kandi Saleem. I reviewed the nurse practitioner's note and agree with the documented findings and plan of care. Lung sounds are positive for diminished breath sounds. The findings and the impression was discussed with the patient. I attest to the documentation by the nurse practitioner. Time with Patient: Less than 30
--- NOTE | 2020-05-19 14:30 | CDI ---
Documentation Clarification Form Date: 05/19/2020 01:33:20 PM From: Katiuska Jama RN CCDS Admit Date: 05/10/2020 12:18:00 AM Patient Name: Juma Lewis Visit Number: [id number] Discharge Date: ATTENTION: The Clinical Documentation Specialists (CDI) and [facility] Coding Staff appreciate your assistance in clarifying documentation. Please respond to the clarification below the line at the bottom and electronically sign. The CDI & [facility] Coding staff will review the response and follow-up if needed. Please note: Queries are made part of the Legal Health Record. If you have any questions, please contact the author of this message via ITS. Dr. Adam Ortega Leukocytosis, possibly secondary to sepsis related to #1 is documented in the 05/12 [facility] Progress Note. History/Risk Factors: 74-year-old male presents to the ED with shortness of breath admitted with pericardial effusion. Medical history COPD Clinical Indicators: 05/09 LABS: Wbc 19.3, Neutrophils # 16.1, Lactic Acid 3.0, 05/09 Vital signs on admission: 110/74 93 97.8 28 94% 2L nasal cannula 05/12 Sputum Culture: Pseudomonas aeruginosa Treatment: 05/12 ID Consult: Sirs, Leukocytosis. ID progress note 05/18 patient with leukocytosis which is multifactorial in this patient who did have a possible component of pneumonia. Antibiotics: 05/10 Azithromycin Ivpb x1; Rocephin Ivp x1, 05/12 Cefepime Ivpb Q 12 Hrs, Daptomycin Ivpb Q 24 Hr Dc 05/14, IV Bolus: 05/10 0.9ns 1L bolus, In your professional opinion, please clarify if these findings signify one of the following conditions, whether the condition is POA, and cause, if known: Sepsis POA Sepsis Ruled Out Other, please specify Unable to determine Identify the (suspected) organism Link or clarify if there is associated (due to/with): Organ failure Shock SIRS Criteria (2 or more of the following may indicate SIRS): -Temperature < 96.8F (36C) or > 101.0F (38.3C) -Heart Rate > 90 bpm -Respiratory Rate > 20 breaths/min or PaCO2 < 32 mmHg -White Blood Cell Count > 12,000 or < 4,000 cells/mm3 or > 10% bands -Lactate >2.0 mmol/L (>4.0 is equivalent to septic shock) Secondary to pericardial effusion with early tamponade, pericardial fluid demonstrates malignant cells consistent with adenocarcinoma of the lung (Last Revision: February 2018) MTDD
--- NOTE | 2020-05-19 15:15 | P.PN ---
Subjective Progress Note Date: 05/19/20 Principal diagnosis: Malignant Pericardial Effusion Patient will be discharged today after MRI of Brain. Our office will call with appointment. Objective - Vital Signs Vital signs: Vital Signs Temp 98.1 F 05/19/20 08:00 Pulse 72 05/19/20 10:50 Resp 18 05/19/20 08:00 BP 118/58 05/19/20 08:00 Pulse Ox 98 05/19/20 08:00 Intake & Output 05/18/20 05/19/20 05/19/20 18:59 06:59 18:59 Intake Total 200 290 Balance 200 290 Weight 82 kg Intake: IV 200 Oral 290 Other: Voiding Method Urinal Urinal Urinal Diaper Diaper Diaper # Voids 1 1 # Bowel Movements 1 - Exam - Constitutional General appearance: cooperative, no acute distress - EENT Eyes: PERRLA, poor dentition, normal appearance ENT: hearing grossly normal, normal oropharynx - Respiratory Respiratory: bilateral: diminished (mild increased effort) - Cardiovascular Rhythm: regular Heart sounds: normal: S1, S2 leg Peripheral Edema: bilateral: 3+ - Gastrointestinal General gastrointestinal: soft, tenderness - Integumentary Integumentary: pale - Neurologic Neurologic: CNII-XII intact - Musculoskeletal Musculoskeletal: generalized weakness - Psychiatric Psychiatric: A&O x's 3, appropriate affect, intact judgment & insight - Labs CBC & Chem 7: 05/18/20 06:00 05/19/20 06:21 Labs: Abnormal Lab Results - Last 24 Hours (Table) 05/17/20 05/18/20 05/18/20 Range/Units 05:30 16:43 20:37 Sodium (137-145) mmol/L Carbon Dioxide (22-30) mmol/L BUN (9-20) mg/dL Creatinine (0.66-1.25) mg/dL Glucose (74-99) mg/dL POC Glucose (mg/dL) 155 H 225 H (75-99) mg/dL Calcium (8.4-10.2) mg/dL Methylmalonic Acid 0.77 H (<0.40) umol/L 05/19/20 05/19/20 05/19/20 Range/Units 06:16 06:21 11:50 Sodium 136 L (137-145) mmol/L Carbon Dioxide 31 H (22-30) mmol/L BUN 41 H (9-20) mg/dL Creatinine 1.50 H (0.66-1.25) mg/dL Glucose 114 H (74-99) mg/dL POC Glucose (mg/dL) 122 H 116 H (75-99) mg/dL Calcium 8.0 L (8.4-10.2) mg/dL Methylmalonic Acid (<0.40) umol/L Assessment and Plan (1) History of prostate cancer Current Visit: Yes Status: Acute Code(s): Z85.46 - PERSONAL HISTORY OF MALIGNANT NEOPLASM OF PROSTATE SNOMED Code(s): 355279970 (2) Adenocarcinoma Current Visit: Yes Status: Acute Code(s): C80.1 - MALIGNANT (PRIMARY) NEOPLASM, UNSPECIFIED SNOMED Code(s): 680287590 (3) Acute kidney injury Current Visit: Yes Status: Acute Code(s): N17.9 - ACUTE KIDNEY FAILURE, UNSPECIFIED SNOMED Code(s): 52236690 (4) Edema of both lower extremities due to peripheral venous insufficiency Current Visit: Yes Status: Acute Code(s): I87.2 - VENOUS INSUFFICIENCY (CHRONIC) (PERIPHERAL) SNOMED Code(s): 40597604694846461 (5) Pericardial effusion without cardiac tamponade Current Visit: Yes Status: Acute Code(s): I31.3 - PERICARDIAL EFFUSION (NONINFLAMMATORY) SNOMED Code(s): 031985118 Plan: Assessment and recommendations: Malignant Pericardial Effusion: - Status Post Pericardial Effusion 850cc off on 05/09/20 positive cytology for adenocarcinoma - Primary site not currently known - Work-up in progress - CEA increased 88.1 - Cardiology following, plan for pericardial window per CTS History of prostate Cancer in 02/2019 with radical prostatectomy - PSA is pending Renal Insufficiency: Improving - Nephrology is following Increased LDH: - Uric Acid stable 7 Increased LFTs: - MRI abdomen shows no abnormality in liver, pancrease, kidneys or adrenal glands - Mild distention in gallbladder, no wall thickening or surrounding per read. - GI is following Tobacco Abuse - Cessation plan discussed and advised Pseudomonas Pneumonia: - Antibiotics per ID team. Plan: - We do not need bone scan as planning PET as outpatient - Our office will call patient within week to schedule - Follow-up scheduled 06/01 @ 4:[address] Trejo
--- NOTE | 2020-05-19 15:51 | MR ---
EXAMINATION TYPE: MR brain wo/w con DATE OF EXAM: 05/19/2020 COMPARISON: None HISTORY: Metastatic Cancer assess primary and metastasis CONTRAST: Performed utilizing 9 mL intravenous Gadavist gadolinium contrast. TECHNIQUE: Multiplanar, multiecho imaging on a 3.0 Roxie magnet is performed through the brain. Stud y is performed within 24 hours of arrival to the hospital. The craniovertebral junction is normal. The pituitary is normal. Diffusion-weighted imaging is performed. No abnormal hyperintensity is present to suggest an acute i ntracranial infarct or acute ischemic change. Mild periventricular white matter changes are present not out of proportion to the patient age. Ventricles and sulci are appropriate for the patient age. No suspicious enhancement is evident. No masslike areas or abnormal enhancing areas are evident sugge st metastatic disease. IMPRESSIONS: 1. No suspicious metastatic disease. 2. Mild chronic appearing periventricular white matter ischemic type changes
[2020-05-19] MEDS ORDERED: FUROSEMIDE 40 MG TAB PO SCH (16:00)
--- NOTE | 2020-05-19 16:43 | PN ---
PROGRESS NOTE DATE OF SERVICE: 05/19/2020 REASON FOR FOLLOWUP: Leukocytosis, multifactorial, with a question of pneumonia. INTERVAL HISTORY: The patient is currently afebrile, has been breathing more comfortably. Denies having any chest pain. Occasional cough. No nausea or vomiting. No abdominal pain or diarrhea. Waiting for MRI of the brain this afternoon. PHYSICAL EXAMINATION: Blood pressure 119/58 with a pulse of 72, temperature 98.1. He is 98% on room air. General description is an elderly male lying in bed in no distress. RESPIRATORY SYSTEM: Unlabored breathing. Clear to auscultation anteriorly. HEART: S1, S2. Regular rate and rhythm. ABDOMEN: Soft. No tenderness. LABS: BUN of 41, creatinine 1.50. DIAGNOSTIC IMPRESSION AND PLAN: Patient with leukocytosis, multifactorial in this patient admitted to hospital with a pericardial effusion, status post pericardial drain. Sputum did grown pseudomonas species; on cefepime with overall improvement. Finish therapy with a short course of oral Cipro. Prescription was sent to the pharmacy. Continue with supportive care. MMODL / IJN: [id number] /
[2020-05-19 16:51] VITALS: PULSE 72
[2020-05-20] MEDS ORDERED: predniSONE 20 MG TAB PO SCH (09:00)
== END 2020-05-19 17:10 | disposition home or self-care (01) | DRG 871 ==
LOC: EC 21:37 → 3SCARD 05-10 00:18
PROVIDERS: ADMIT Family Medicine; ATTEND Family Medicine
PROC: 0W9D30Z Drainage of Pericardial Cavity with Drainage Device, Percutaneous Approach (ICD-10-PCS; principal; 2020-05-10)
PROC: 0DB58ZX Excision of Esophagus, Via Natural or Artificial Opening Endoscopic, Diagnostic (ICD-10-PCS; 2020-05-18 13:25)
PROC: 0DB98ZX Excision of Duodenum, Via Natural or Artificial Opening Endoscopic, Diagnostic (ICD-10-PCS; 2020-05-18 13:25)
PROC: 0DJD8ZZ Inspection of Lower Intestinal Tract, Via Natural or Artificial Opening Endoscopic (ICD-10-PCS; 2020-05-18 13:25)
DX: A41.52 Sepsis due to Pseudomonas (principal); J96.01 Acute respiratory failure with hypoxia; N17.0 Acute kidney failure with tubular necrosis; G93.41 Metabolic encephalopathy; I50.23 Acute on chronic systolic (congestive) heart failure; J15.1 Pneumonia due to Pseudomonas; C79.9 Secondary malignant neoplasm of unspecified site; I31.4 Cardiac tamponade; J44.1 Chronic obstructive pulmonary disease with (acute) exacerbation; E87.4 Mixed disorder of acid-base balance; E87.1 Hypo-osmolality and hyponatremia; I48.92 Unspecified atrial flutter; I13.0 Hypertensive heart and chronic kidney disease with heart failure and stage 1 through stage 4 chronic kidney disease, or unspecified chronic kidney disease; I42.9 Cardiomyopathy, unspecified; B37.0 Candidal stomatitis; J44.0 Chronic obstructive pulmonary disease with (acute) lower respiratory infection; I31.3 Pericardial effusion (noninflammatory); C80.1 Malignant (primary) neoplasm, unspecified; Z20.828 Contact with and (suspected) exposure to other viral communicable diseases; H91.90 Unspecified hearing loss, unspecified ear; Z96.641 Presence of right artificial hip joint; F17.200 Nicotine dependence, unspecified, uncomplicated; E87.6 Hypokalemia; T50.2X5A Adverse effect of carbonic-anhydrase inhibitors, benzothiadiazides and other diuretics, initial encounter; K59.00 Constipation, unspecified; K20.9 Esophagitis, unspecified; K22.70 Barrett's esophagus without dysplasia; I87.2 Venous insufficiency (chronic) (peripheral); I48.91 Unspecified atrial fibrillation; K29.50 Unspecified chronic gastritis without bleeding; K29.80 Duodenitis without bleeding; K44.9 Diaphragmatic hernia without obstruction or gangrene; N18.9 Chronic kidney disease, unspecified; G25.81 Restless legs syndrome; Z88.1 Allergy status to other antibiotic agents; Z79.899 Other long term (current) drug therapy; Z79.52 Long term (current) use of systemic steroids; Z88.2 Allergy status to sulfonamides; Z85.46 Personal history of malignant neoplasm of prostate; Z80.3 Family history of malignant neoplasm of breast; Z85.828 Personal history of other malignant neoplasm of skin; Z90.79 Acquired absence of other genital organ(s); R91.8 Other nonspecific abnormal finding of lung field
CPT/HCPCS: 36415; 43239; 45378; 70553; 71045; 71046; 71250; 74183; 76770; 80048; 80053; 81003; 82378; 82550; 82607; 82728; 82945; 83540; 83550; 83605; 83615; 83735; 83880; 83921; 84100; 84132; 84153; 84157; 84484; 84550; 85025; 85027; 85045; 85379; 85610; 85730; 86038; 86160; 86225; 86255; 86301; 86788; 87040; 87070; 87077; 87186; 87205; 88108; 88305; 88341; 88342; 89050; 93005; 93306; 93308; 93970; 94640; 94760; 96365; 96374; 96375; 99291

== ENCOUNTER → 2020-06-02 | Outpatient (CLI) | payer MEDICARE ==
--- NOTE | 2020-06-04 09:33 | PE ---
Nuclear medicine PET/CT HISTORY: Metastatic adenocarcinoma, prostate CA and lung carcinoma, subsequent Patient received 10.9 mCi F-18 FDG intravenously, delayed scanning was performed from the skull base to the mid thighs. Localization and attenuation correction CT scan was performed. Correlation chest CT 05/12/2020, CT pelvis 01/25/2019, prior nuclear medicine PET/CT 01/24/2018 Neck and chest: In the supraclavicular location on the right there are 3 nonenlarged nodes which show associated hypermetabolic uptake. The right paratracheal node is also not enlarged but shows uptake as does a retrocaval pretracheal node. There is a small left pleural effusion. Nodular densities pres ent in the right upper lobe similar to prior exam, there is underlying emphysematous change. Calcifie d pleural plaque also noted anteriorly in the right upper lobe. ABDOMEN: There is no adrenal mass, no suspicious uptake. No liver mass is seen. No ascites. Atheromat ous change present within the aorta. Osseous structures show postop change in the right hip. No suspicious uptake. IMPRESSION: Abnormal mediastinal node has decreased in size compared to prior PET/CT, there is hyperm etabolic uptake in nonenlarged nodes as described.
== END | disposition home or self-care (01) ==
LOC: RADPETMAIN 08:54
PROVIDERS: ATTEND Internal Medicine Hematology & Oncology
DX: C34.81 Malignant neoplasm of overlapping sites of right bronchus and lung (principal); C34.82 Malignant neoplasm of overlapping sites of left bronchus and lung
CPT/HCPCS: 78815; A9552

== ENCOUNTER → 2020-06-22 | Outpatient (CLI) | payer MEDICARE ==
--- NOTE | 2020-06-22 12:43 | XR ---
EXAMINATION TYPE: XR chest 2V DATE OF EXAM: 06/22/2020 COMPARISON: Prior chest x-ray 05/16/2020 HISTORY: Lung carcinoma TECHNIQUE: Frontal and lateral views of the chest are obtained. FINDINGS: There is improvement in the aeration at the lung bases, there is persistent blunting of th e left costophrenic angle. Cardiac mediastinal silhouette, pulmonary vascularity and erich show possib le prominence of pulmonary artery, normal heart size. Aorta is dense. No evident pneumothorax. Bone m ineralization is stable. Comment lung lines with flattening the hemidiaphragms suggests underlying CO PD. IMPRESSION: There is improved aeration, there may be a small left pleural effusion and associated at electasis.
== END | disposition home or self-care (01) ==
LOC: RADXRMAIN 11:52
PROVIDERS: ATTEND Nurse Practitioner Adult Health
DX: C34.90 Malignant neoplasm of unspecified part of unspecified bronchus or lung (principal); J43.8 Other emphysema; R06.02 Shortness of breath
CPT/HCPCS: 71046

== ENCOUNTER → 2020-06-27 | Outpatient (CLI) | payer MEDICARE ==
--- NOTE | 2020-06-27 15:00 | ECHOF ---
Referral Reason:I31.3 Pericardial effusion (noninflammatory) MEASUREMENTS -------- HEIGHT: 190.5 cm WEIGHT: 83.9 kg BP: 120/72 RVIDd: 3.8 cm (< 3.3) IVSd: 1.2 cm (0.6 - 1.1) LVIDd: 4.1 cm (3.9 - 5.3) LVPWd: 1.3 cm (0.6 - 1.1) IVSs: 1.8 cm LVIDs: 2.9 cm LVPWs: 1.8 cm LAESV Index (A-L): 37.89 ml/m Ao Diam: 3.2 cm (2.0 - 3.7) AV Cusp: 2.0 cm (1.5 - 2.6) MV EXCURSION: 22.646 mm (> 18.000) MV EF SLOPE: 187 mm/s (70 - 150) EPSS: 0.9 cm MV E Rafael: 0.86 m/s MV DecT: 275 ms MV A Rafael: 1.27 m/s MV E/A Ratio: 0.68 RAP: 5.00 mmHg RVSP: 51.18 mmHg FINDINGS -------- Sinus rhythm. This was a technically adequate study. The left ventricular size is normal. There is moderate concentric left ventricular hypertrophy. O verall left ventricular systolic function is normal with, an EF between 55 - 60 %. The diastolic fi lling pattern is normal for the age of the patient 9.61. The right ventricle is mild to moderately enlarged. LA is moderately dilated 34-39 ml/m2 The right atrial size is normal. Interatrial and interventricular septum intact. There is no evidence of aortic regurgitation. There is no evidence of aortic stenosis. [id number] mitral regurgitation is present. Moderate tricuspid regurgitation present. There is moderate pulmonary hypertension. The right toya tricular systolic pressure, as measured by Doppler, is 51.18mmHg. There is no pulmonic regurgitation present. There is no pericardial effusion. CONCLUSIONS -------- 1. The left ventricular size is normal. 2. There is moderate concentric left ventricular hypertrophy. 3. Overall left ventricular systolic function is normal with, an EF between 55 - 60 %. 4. The right ventricle is mild to moderately enlarged. 5. LA is moderately dilated 34-39 ml/m2 6. Ntff-ht-[id number] mitral regurgitation is present. 7. Moderate tricuspid regurgitation present. 8. There is moderate pulmonary hypertension. 9. The right ventricular systolic pressure, as measured by Doppler, is 51.18mmHg. PRINCIPAL GIFTS OFFICER: Sidra Douglas RDCS
== END | disposition home or self-care (01) ==
LOC: RADECHMAIN 12:43
PROVIDERS: ATTEND Internal Medicine Hematology & Oncology
DX: Z01.818 Encounter for other preprocedural examination (principal); I08.1 Rheumatic disorders of both mitral and tricuspid valves; I27.20 Pulmonary hypertension, unspecified; Z88.2 Allergy status to sulfonamides
CPT/HCPCS: 93306

== ENCOUNTER 2020-07-13 06:13 | Inpatient (IN) | payer MEDICARE ==
[2020-07-13] MEDS ORDERED: LORazepam 2 MG/ML INJ IV STA ×2 (06:25→16:56)
[2020-07-13] MEDS ORDERED: SODIUM CHLORIDE 0.9% 1,000 ML IV STA (06:25)
--- NOTE | 2020-07-13 06:33 | ED ---
Seizure HPI - General Chief Complaint: Seizure Stated Complaint: dizziness, weakness Time Seen by Provider: 07/13/20 06:15 Source: patient, EMS, RN notes reviewed, old records reviewed Mode of arrival: EMS - History of Present Illness Initial Comments: Patient is a 74-year-old male with a history of recently diagnosed lung cancer presents emergency department today for concern for possible seizure activity. Patient reports that he woke his to help assist him to go to the bathroom as morning. When he was getting up into a wheelchair, patient's reports that he became "stiff", unresponsive, and had an episode of urinary incontinence. This lasted approximately a minute. When Patient came to, they went to the restroom Patient reports he did have some diarrhea. His last chemotherapy treatment was on Friday. He states since his last chemotherapy, he is having episodes of diarrhea. He does report that when he goes from sitting to standing, he has a take a few minutes because he feels dizzy and lightheaded and a "flushed through his body". Patient states that he's had no prior history of seizure activity. He states that he sees Dr. Trejo and Dr. Nicole. Patient denies fevers, chills. He denies chest pain or shortness of breath or abdominal pain at this time. He denies headache visual changes or other complaints. I discussed the case with patient's that she is now at bedside at 6:45 AM. Patient's states that he's had 2 smaller episodes the past 2 days earlier in the morning but not a prolonged period of unresponsiveness as of today. Patient's states that he complains that his "neurological system" is not firing right. - Related Data Home Medications Medication Instructions Recorded Confirmed Melatonin 10 mg PO HS PRN 03/01/19 06/26/20 Multivitamin [Multivitamins Adult 1 tab PO DAILY 03/01/19 06/26/20 Gummies] Umeclidinium Brm/Vilanterol Tr 1 puff INHALATION RT-DAILY 03/01/19 06/26/20 [Anoro Ellipta 62.5-25 Mcg INH] clonazePAM [KlonoPIN] 0.5 mg PO HS 03/01/19 06/26/20 Albuterol Nebulized [Ventolin 2.5 mg INHALATION RT-QID 05/09/20 06/26/20 Nebulized] Previous Rx's Medication Instructions Recorded Albuterol Inhaler [Ventolin Hfa 2 puff INHALATION RT-QID #2 puff 04/27/20 Inhaler] Docusate [Colace] 100 mg PO BID #30 cap 05/19/20 Sennosides-Docusate Sodium 2 each PO BID #30 tab 05/19/20 [Senokot-S] Allergies Allergy/AdvReac Type Severity Reaction Status Date / Time Sulfa (Sulfonamide Allergy Unknown Rash/Hives Verified 06/26/20 12:39 Antibiotics) tetracycline Allergy Unknown UNKNOWN- Verified 06/26/20 12:39 TAKEN FROM OR BOARDING SHEET. Review of Systems ROS Statement: Those systems with pertinent positive or pertinent negative responses have been documented in the HPI. ROS Other: All systems not noted in ROS Statement are negative. 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 History of Any Multi-Drug Resistant Organisms: None Reported Past Surgical History: Joint Replacement Additional Past Surgical History / Comment(s): rt hip replacement Past Anesthesia/Blood Transfusion Reactions: No Reported Reaction Additional Past Anesthesia/Blood Transfusion Reaction / Comment(s): Claustr ophobic. Past Psychological History: No Psychological Hx Reported Smoking Status: Former smoker Past Alcohol Use History: None Reported Past Drug Use History: None Reported - Past Family History Mother Family Medical History: Cancer Additional Family Medical History / Comment(s): breast cancer General Exam - General Exam Comments Initial Comments: 74 year old male, no distress. General appearance: alert, in no apparent distress Head exam: Present: atraumatic, normocephalic, normal inspection Eye exam: Present: normal appearance, PERRL, EOMI. Absent: scleral icterus, c onjunctival injection, periorbital swelling ENT exam: Present: normal exam, mucous membranes moist Neck exam: Present: normal inspection. Absent: tenderness, meningismus, lymphadenopathy Respiratory exam: Present: normal lung sounds bilaterally Cardiovascular Exam: Present: regular rate, normal rhythm, normal heart sounds. Absent: systolic murmur, diastolic murmur, rubs, gallop, clicks GI/Abdominal exam: Present: soft, normal bowel sounds. Absent: distended, tenderness, guarding, rebound, rigid Extremities exam: Present: normal inspection, full ROM, normal capillary refill. Absent: tenderness, pedal edema, joint swelling, calf tenderness Back exam: Present: normal inspection Neurological exam: Present: alert, oriented X3, CN II-XII intact Psychiatric exam: Present: normal affect, normal mood Skin exam: Present: warm, dry, intact, normal color. Absent: rash Course Vital Signs 07/13/20 07/13/20 07/13/20 06:17 07:18 07:20 Temperature 97.9 F Pulse Rate 74 Pulse Rate [ 67 75 Pulse Oximetery ] Respiratory 18 18 18 Rate Blood Pressure 107/65 Blood Pressure 95/64 [Left Arm Sitting] Blood Pressure [Left Arm Standing] Blood Pressure 142/83 [Left Arm Supine] O2 Sat by Pulse 97 100 99 Oximetry 07/13/20 07/13/20 07:22 07:33 Temperature Pulse Rate 65 Pulse Rate [ 75 Pulse Oximetery ] Respiratory 18 18 Rate Blood Pressure 133/79 Blood Pressure [Left Arm Sitting] Blood Pressure 72/62 [Left Arm Standing] Blood Pressure [Left Arm Supine] O2 Sat by Pulse 99 100 Oximetry Medical Decision Making - Medical Decision Making 74-year-old male who is approximately 6 days post chemotherapy with history of adenocarcinoma presents emergency room today for concern for a vagal episode versus seizure activity. Patient was getting up to the bathroom and had an unresponsive episode lasting 2 minutes. Patient at this time has no complaints of any pain. Patient reports that since his last chemotherapy has had a lot of diarrhea. On exam there is no acute neurological deficits are physical findings. Patient's labs reviewed and show significant neutropenia with white blood cell count of 1.3. He does have decreased hemoglobin of 9.6 compared to previous of 13.Patient has significant positive orthostatic hypotension. He was given a 2 L bolus. His that have an increased BUN of [address] of the brain was negative for any acute intracranial process. No mass effect or midline shift is seen. Patient has no acute findings on chest x-ray. At this time Patient will be admitted for concern for dehydration and orthostatic hypotension, neutropenia. We'll consult neurology for possible description of seizure-like activity versus vagovagal episode and oncology. Discussed with Dr. Steiner, whom discussed with Dr. Ortega. - Lab Data Result diagrams: 07/13/20 06:33 07/13/20 06:33 Lab Results 07/13/20 07/13/20 07/13/20 Range/Units 06:33 06:33 06:33 WBC 1.4 L* (3.8-10.6) k/uL RBC 3.14 L (4.30-5.90) m/uL Hgb 9.6 L D (13.0-17.5) gm/dL Hct 29.4 L (39.0-53.0) % MCV 93.6 D (80.0-100.0) fL MCH 30.4 (25.0-35.0) pg MCHC 32.5 (31.0-37.0) g/dL RDW 16.2 H (11.5-15.5) % Plt Count 407 D (150-450) k/uL Anisocytosis Slight PT (9.0-12.0) sec INR (<1.2) APTT (22.0-30.0) sec Sodium 133 L (137-145) mmol/L Potassium 3.0 L (3.5-5.1) mmol/L Chloride 94 L (98-107) mmol/L Carbon Dioxide 29 (22-30) mmol/L Anion Gap 10 mmol/L BUN 56 H (9-20) mg/dL Creatinine 1.42 H (0.66-1.25) mg/dL Est GFR (CKD-EPI)AfAm 57 (>60 ml/min/1.73 sqM) Est GFR (CKD-EPI)NonAf 49 (>60 ml/min/1.73 sqM) Glucose 102 H (74-99) mg/dL Plasma Lactic Acid Abhishek (0.7-2.0) mmol/L Calcium 8.8 (8.4-10.2) mg/dL Magnesium 2.1 (1.6-2.3) mg/dL Total Bilirubin 0.9 (0.2-1.3) mg/dL AST 35 (17-59) U/L ALT 20 (4-49) U/L Alkaline Phosphatase 74 (38-126) U/L Troponin I (0.000-0.034) ng/mL Total Protein 6.7 (6.3-8.2) g/dL Albumin 4.1 (3.5-5.0) g/dL Urine Color Yellow Urine Appearance Cloudy (Clear) Urine pH 5.0 (5.0-8.0) Ur Specific [place] 1.016 (1.001-1.035) Urine Protein Trace H (Negative) Urine Glucose (UA) Negative (Negative) Urine Ketones Negative (Negative) Urine Blood Negative (Negative) Urine Nitrite Negative (Negative) Urine Bilirubin Negative (Negative) Urine Urobilinogen <2.0 (<2.0) mg/dL Ur Leukocyte Esterase Negative (Negative) Urine RBC 1 (0-5) /hpf Urine WBC 2 (0-5) /hpf Ur Squamous Epith Cells <1 (0-4) /hpf Cellular Casts 6 (0) /lpf Hyaline Casts 90 H (0-2) /lpf Urine Mucus Occasional H (None) /hpf 07/13/20 07/13/20 07/13/20 Range/Units 06:33 06:39 06:39 WBC (3.8-10.6) k/uL RBC (4.30-5.90) m/uL Hgb (13.0-17.5) gm/dL Hct (39.0-53.0) % MCV (80.0-100.0) fL MCH (25.0-35.0) pg MCHC (31.0-37.0) g/dL RDW (11.5-15.5) % Plt Count (150-450) k/uL Anisocytosis PT 9.7 (9.0-12.0) sec INR 0.9 (<1.2) APTT 20.2 L (22.0-30.0) sec Sodium (137-145) mmol/L Potassium (3.5-5.1) mmol/L Chloride (98-107) mmol/L Carbon Dioxide (22-30) mmol/L Anion Gap mmol/L BUN (9-20) mg/dL Creatinine (0.66-1.25) mg/dL Est GFR (CKD-EPI)AfAm (>60 ml/min/1.73 sqM) Est GFR (CKD-EPI)NonAf (>60 ml/min/1.73 sqM) Glucose (74-99) mg/dL Plasma Lactic Acid Abhishek 1.4 (0.7-2.0) mmol/L Calcium (8.4-10.2) mg/dL Magnesium (1.6-2.3) mg/dL Total Bilirubin (0.2-1.3) mg/dL AST (17-59) U/L ALT (4-49) U/L Alkaline Phosphatase (38-126) U/L Troponin I 0.017 (0.000-0.034) ng/mL Total Protein (6.3-8.2) g/dL Albumin (3.5-5.0) g/dL Urine Color Urine Appearance (Clear) Urine pH (5.0-8.0) Ur Specific [place] (1.001-1.035) Urine Protein (Negative) Urine Glucose (UA) (Negative) Urine Ketones (Negative) Urine Blood (Negative) Urine Nitrite (Negative) Urine Bilirubin (Negative) Urine Urobilinogen (<2.0) mg/dL Ur Leukocyte Esterase (Negative) Urine RBC (0-5) /hpf Urine WBC (0-5) /hpf Ur Squamous Epith Cells (0-4) /hpf Cellular Casts (0) /lpf Hyaline Casts (0-2) /lpf Urine Mucus (None) /hpf 07/13/20 06:46 EKG shows sinus rhythm with PACs`, ventricular rate of 74 bpm. AK interval is 166 ms. QS duration is 90 ms. QT QTc is 388/4:30 milliseconds. - Radiology Data Radiology results: report reviewed CT shows degenerative changes with no evidence of acute hemorrhage or mass effect. If symptoms persist consider MRI. Chest x-ray shows no acute process. Correlate for COPD. Nodular density in the right upper lobe has been reported by previous PET/CT scan. Disposition Clinical Impression: Neutropenia, Orthostatic hypotension, Dehydration, Unresponsive episode, Hypokalemia Disposition: ADMITTED IP TO THIS HOSP Condition: Stable Is patient prescribed a controlled substance at d/c from ED?: No Referrals: Adam Ortega Jr, [Primary Care Provider] - 1-2 days Time of Disposition: 07:52
[2020-07-13 06:51] LABS: Anisocytosis Slight; HCT 29.4 % (39.0-53.0); MCH 30.4 pg (25.0-35.0); MCHC 32.5 g/dL (31.0-37.0); Mean Platelet Volume 8.2; RBC 3.14 m/uL (4.30-5.90); RDW 16.2 % (11.5-15.5)
[2020-07-13 06:52] LABS: Albumin 4.1 g/dL (3.5-5.0); Calcium 8.8 mg/dL (8.4-10.2); Magnesium 2.1 mg/dL (1.6-2.3); Total Bilirubin 0.9 mg/dL (0.2-1.3); Total Protein 6.7 g/dL (6.3-8.2)
[2020-07-13 06:56] LABS: HGB 9.6 gm/dL (13.0-17.5); MCV 93.6 fL (80.0-100.0); Platelet Count 407 k/uL (150-450); WBC 1.4 k/uL (3.8-10.6)
[2020-07-13] MEDS ORDERED: POTASSIUM CHLORIDE ER 20 MEQ TAB.ER PO STA (07:10)
[2020-07-13 07:12] LABS: INR 0.9 (<1.2); Prothrombin Time 9.7 sec (9.0-12.0)
[2020-07-13 07:17] LABS: Appearance,Urine Cloudy (Clear); Bilirubin,Urine Negative (Negative); Blood,Urine Negative (Negative); Cellular Casts,Urine 6 /lpf (0); Color,Urine Yellow; Glucose,Urine (UA) Negative (Negative); Hyaline Casts,Urine 90 /lpf (0-2); Ketones,Urine Negative (Negative); Leukocyte Esterase,Urine Negative (Negative); Mucus,Urine Occasional /hpf; Nitrite,Urine Negative (Negative); Protein,Urine Trace (Negative); RBC,Urine 1 /hpf (0-5); Specific Gravity,Urine 1.016 (1.001-1.035); Squamous Epithelial Cell,Urine <1 /hpf (0-4); Urobilinogen,Urine <2.0 mg/dL (<2.0); WBC,Urine 2 /hpf (0-5)
[2020-07-13] MEDS ORDERED: SODIUM CHLORIDE 0.9% 1,000 ML IV ONE (07:24)
--- NOTE | 2020-07-13 07:29 | XR ---
EXAMINATION TYPE: XR chest 2V DATE OF EXAM: 07/13/2020 COMPARISON: 06/22/2020 TECHNIQUE: PA and lateral views submitted. HISTORY: Lung cancer FINDINGS: The lungs are clear and there is no pneumothorax, pleural effusion, or focal pneumonia. Hyperinflati on suggests COPD. There is vague and density along the right costophrenic angle small characterize. M ay be related to soft tissue overlap. Atherosclerotic change of the aorta. Hypertrophic changes. No o vert failure. Arthropathy of the shoulders. Density along the anterior margin the right first rib was not seen to be patent by recent PET scan is too small to characterize. IMPRESSION: 1. No acute process. Correlate for COPD. Nodular density seen in the right upper lobe has been report ed by previous PET CT scan.
--- NOTE | 2020-07-13 07:33 | CT ---
EXAMINATION TYPE: CT brain wo con DATE OF EXAM: 07/13/2020 COMPARISON: None HISTORY: Seizure activity CT DLP: 1040.4 mGycm Automated exposure control for dose reduction was used. FINDINGS: Mild to moderate generalized degenerative change. Faint low-attenuation within the white matter is no ne but most typical remote microvascular ischemia. Calvarium intact. No acute hemorrhage or mass effe ct. IMPRESSION: DEGENERATIVE CHANGES WITH NO EVIDENCE OF ACUTE HEMORRHAGE OR MASS EFFECT. IF SYMPTOMS PERSIST CONSIDE R MRI
[2020-07-13 07:36] LABS: Partial Thromboplastin Time 20.2 sec (22.0-30.0)
[2020-07-13] MEDS ORDERED: ONDANSETRON 4 MG/2 ML VIAL IVP PRN (07:52)
[2020-07-13] MEDS ORDERED: LORazepam 0.5 MG TAB PO PRN (07:52)
[2020-07-13] MEDS ORDERED: IBUPROFEN 400 MG TAB PO PRN (07:52)
[2020-07-13] MEDS ORDERED: ACETAMINOPHEN TAB 325 MG TAB PO PRN (07:52)
[2020-07-13] MEDS ORDERED: oxyCODONE-APAP 5-325MG 1 EACH TAB PO PRN (07:52)
[2020-07-13] MEDS ORDERED: NALOXONE 0.4 MG/ML 1 ML VIAL IV PRN (07:52)
[2020-07-13 08:04] LABS: Basophils # (M) 0.01 k/uL (0-0.2); Eosinophils # (M) 0.01 k/uL (0-0.7); Lymphocytes # (M) 0.81 k/uL (1.0-4.8); Neutrophils # (M) 0.46 k/uL (1.3-7.7); Neutrophils % (M) 33 %; Nucleated Red Blood Cells 0 /100 WBC (0-0); Total Cells Counted 100
[2020-07-13 08:05] LABS: Poikilocytosis (M) Present
[2020-07-13] MEDS: SODIUM CHLORIDE 0.9% 1,000 ML IV STA ×2 (09:11→09:13)
[2020-07-13] MEDS: SODIUM CHLORIDE 0.9% 1,000 ML IV SCH ×2 (09:13→21:22)
[2020-07-13] MEDS ORDERED: IPRATROPIUM-ALBUTEROL 3 ML NEB INHALATION PRN (13:25)
[2020-07-13] MEDS ORDERED: ONDANSETRON 4 MG TAB PO PRN (13:26)
--- NOTE | 2020-07-13 14:43 | EEG ---
ELECTROENCEPHALOGRAM REPORT DATE OF SERVICE: 07/13/2020 PREAMBLE: This is a 74-year-old male with syncope versus seizure. This study is performed to evaluate for any epileptiform activity. EEG FINDINGS: A 21 channel routine EEG recording in a patient utilizing 10/20 international system with referential and bipolar montages. The background consists of well developed, well regulated, moderate voltage activity in 9-10 hertz alpha. Background is posterior dominant and reactive to eye opening and closing. Photic driving response was seen with some flash frequencies. Mild drowsiness was seen with appearance of symmetric theta frequency rhythm. Deeper stages of sleep were not seen. No focal or generalized epileptiform activity was seen. EKG channel lead revealed no arrhythmia. IMPRESSION: This is a normal awake and drowsy EEG. No focal lateralized or epileptiform activity was seen. MMODL / IJN: [id number] /
[2020-07-13] MEDS: IPRATROPIUM-ALBUTEROL 3 ML NEB INHALATION SCH ×2 (15:56→20:28)
--- NOTE | 2020-07-13 16:12 | P.CNNES ---
History of Present Illness Consult date: 07/13/20 Requesting physician: Samantha Schwartz Reason for Consult: Seizure versus vagal episode, adenocarcinoma. History of Present Illness: Patient is a 74-year-old male with recent diagnosis of lung cancer presents to the ED for concern of possible seizure activity. Patient's was also present at the time of this interview. 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 No primary source has been identified yet as per patient. Patient started on ch emotherapy in April 2020. He received second worse of chemotherapy on 07/07/2020. Since his initial chemotherapy, patient has been having significant symptoms of orthostasis. This got worse after his second chemotherapy. Patient states that whenever he sits up from laying position, or if he stands up from a sitting position, he develops near syncopal symptoms. He had passed out about 6 times so far. Most recent episode was early this morning, when he wanted to go to the bathroom. While he was in the wheelchair, he passed out, arch backward and had some mild convulsion and lost control of urine. There was no tongue bite. Patient arrived to the hospital at 6:30 AM today. His blood pressure on arrival was 107/65, pulse rate 74 and temperature 97.9. Patient underwent CT head showed degenerative changes with no evidence of acute hemorrhage or mass effect. Chest x-ray showed no acute process. Correlate for COPD. No due to density seen in the right upper lobe has been reported by previous PET/CT scan. EKG shows sinus rhythm with PA-C. Patient's blood test shows WBC 1.4, with significantly decreased neutrophils of 0.46. Lymphocytes are decreased 0.81. Hemoglobin 9.6 and platelets 407. Chem-7 shows sodium 133 potassium 3.0, BUN 56, creatinine 1.42. Hepatic panel normal, serum calcium normal. UA negative. Stool occult blood negative. Patient had an MRI of brain checked on 05/19/2020, which revealed no suspicious metastases disease. Patient had orthostatics checked, in which his supine blood pressure was 142/83 with pulse rate 67. On sitting it came down to 95/64 with pulse of 75. On standing up was 72/62 with pulse of 75. Patient has smoked 1 to 1-1/2 pack per day from age 17, until he quit in April 2020 after he was diagnosed with cancer. He denies hypertension or diabetes. 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 Patient has been otherwise very healthy prior to diagnosis of this cancer. Review of Systems Patient denies any headache, neck pain, abdominal pain nausea vomiting diarrhea. Patient denies any fever or chills. All other review of systems unremarkable. He does have some shortness of breath. Past Medical History Past Medical History: Cancer, COPD, Hearing Disorder / Deafness, Pneumonia, Prostate Disorder, Syncope Additional Past Medical History / Comment(s): 05/10/20 pericardial effusion with early cardiac tamponade/acute respiratory failure with pericardiocentesis/pneumonia/bilateral leg edema, cancer pericardial sac/chest lymph nodes per pt/spouse-receiving chemotherapy-last time 07/07/20 which was his second dose/has had diarrhea since 2nd dose, vertigo when first standing/syncope, recent anemia with transfusion, lung nodules being monitored and thought possibly scarring from previous pneumonia, prostate cancer with surgery, skin cancer with removals, duodenal ulcer, gastritis, hiatal hernia per 05/18/20 EGD/spouse, severe clausterphobia, 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 and has had falls out of bed, bilateral [place] and tinnitis, past alcoholism per pt but quit drinking 30 plus yrs ago. History of Any Multi-Drug Resistant Organisms: None Reported Past Surgical History: Joint Replacement, Prostate Surgery Additional Past Surgical History / Comment(s): 05/18/20 EGD, colonoscopy, robot assisted laparoscopic prostatectomy with bilateral lymph node dissection, skin cancer removals, rt hip replacement Past Anesthesia/Blood Transfusion Reactions: No Reported Reaction Additional Past Anesthesia/Blood Transfusion Reaction / Comment(s): Claustrophobic. Smoking Status: Former smoker - Past Family History Mother Family Medical History: Cancer, Dementia Additional Family Medical History / Comment(s): breast cancer, ETOH abuse Father Family Medical History: COPD, Dementia, Musculoskeletal Disorder, Neurologic Disorder Additional Family Medical History / Comment(s): Parkinson's disease, ETOH abuse. Medications and Allergies Home Medications Medication Instructions Recorded Confirmed Type Umeclidinium Brm/Vilanterol Tr 1 puff INHALATION RT-DAILY 03/01/19 07/13/20 History [Anoro Ellipta 62.5-25 Mcg INH] clonazePAM [KlonoPIN] 0.5 mg PO HS 03/01/19 07/13/20 History Albuterol Inhaler [Ventolin Hfa 2 puff INHALATION RT-QID #2 puff 04/27/2007/13 Rx Inhaler] Albuterol Nebulized [Ventolin 2.5 mg INHALATION RT-QID PRN 05/09/20 07/13/20 History Nebulized] Folic Acid 1 mg PO DAILY 07/13/20 07/13/20 History Furosemide [Lasix] 40 mg PO BID 07/13/20 07/13/20 History Ondansetron [Zofran] 4 mg PO Q4H PRN 07/13/20 07/13/20 History Potassium Chloride [Klor-Con 20] 20 meq PO DAILY 07/13/20 07/13/20 History Allergies Allergy/AdvReac Type Severity Reaction Status Date / Time Sulfa (Sulfonamide Allergy Unknown Rash/Hives Verified 07/13/20 08:07 Antibiotics) tetracycline Allergy Unknown UNKNOWN- Verified 07/13/20 08:07 TAKEN FROM OR BOARDING SHEET. Physical Examination - Vital Signs Vital Signs: Vital Signs Temp Pulse Pulse Resp BP BP BP 07/13/20 07:33 65 18 133/79 07/13/20 07:22 75 18 72/62 07/13/20 07:20 75 18 95/64 07/13/20 07:18 67 18 07/13/20 06:17 97.9 F 74 18 107/65 BP Pulse Ox 07/13/20 07:33 100 07/13/20 07:22 99 07/13/20 07:20 99 07/13/20 07:18 142/83 100 07/13/20 06:17 97 Intake and Output 07/12/20 07/13/20 07/13/20 22:59 06:59 14:59 Other: Weight 73.663 kg 73.663 kg On examination patient is an elderly male, very pleasant in no acute distress. Patient is alert awake oriented to time place and person. Speech and language functions are normal. Attention and concentration fund of knowledge is adequate. On cranial examination pupils are round and reactive to light, visual coronel are full on confrontation, extraocular muscles are intact with no nystagmus. Face is symmetric, tongue protrudes the midline. Palatal elevation and sensation hearing and shoulder shrug normal. On muscle strength testing there is no pronator drift and the strength is normal in arms and legs distally and proximally reflexes are 1+ and plantars downgoing. Sensory touch is equal. No ataxia for [id number] or [id number] testing. Tone and bulk of muscles normal. Gait deferred. There is no carotid bruit, no definite murmur, S1 and S2 audible. Abdomen soft and nontender. Chest is clear. No peripheral edema. Results - Laboratory Findings CBC and BMP: 07/13/20 06:33 07/13/20 06:33 Abnormal Lab Findings: Abnormal Labs 07/13/20 07/13/20 07/13/20 06:33 06:33 06:33 WBC 1.4 L* RBC 3.14 L Hgb 9.6 L D Hct 29.4 L RDW 16.2 H Neutrophils # (Manual) 0.46 L* Lymphocytes # (Manual) 0.81 L APTT Sodium 133 L Potassium 3.0 L Chloride 94 L BUN 56 H Creatinine 1.42 H Glucose 102 H Urine Protein Trace H Hyaline Casts 90 H Urine Mucus Occasional H 07/13/20 06:39 WBC RBC Hgb Hct RDW Neutrophils # (Manual) Lymphocytes # (Manual) APTT 20.2 L Sodium Potassium Chloride BUN Creatinine Glucose Urine Protein Hyaline Casts Urine Mucus Assessment and Plan Assessment: * Recurrent syncopal spells, likely due to severe orthostatic hypotension. Uncertain if related to his recent pericardial effusion, or if related to side effects of chemotherapy. Episodes likely not seizures. * Metastatic cancer, unclear if primary. * Long-standing tobacco use, quit in April 2020 Plan: * Patient has severe orthostatic hypotension. * Consider cardiology consultation to manage orthostatic hypotension, given his recent history of pericardial effusion. May benefit from midodrine. Consider repeating 2-D echo. * EEG was performed which is completely normal. * No other neurological workup indicated. * Oncology on board.
[2020-07-13] MEDS ORDERED: Potassium Replacement Protocol 1 EACH MISC MISCELLANE PRN ×2 (16:19→17:49)
--- NOTE | 2020-07-13 16:44 | P.HPIM ---
History of Present Illness H&P Date: 07/13/20 Chief Complaint: Near syncope, dehydration This a 74-year-old gentleman recently diagnosed with lung cancer, adenocarcinoma, presented to the ER with complaints of liquid diarrhea 4 days with significant amount of flatus, lightheadedness," burning throughout his body" and near syncope upon sitting up, accompanied by blank staring. Patient received second chemo treatment last Friday. Patient reports upon sitting or standing up he becomes lightheaded, unable to formulate thoughts, legs become weaker for a few minutes as if they will give out. 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 Denies headaches, visual changes ,fever or chills. Denies chest pain, palpitations or shortness of breath. Denies nausea or vomiting or abdominal pain. Received fluid bolus for severe orthostatic hypotension; supine 142/83, pulse 67, sitting decreased to 95/64, pulse is 75 and upon standing decreased further to 72/62 with pulse of 75. WBC 1.3, hemoglobin 9.6, platelets 407, neutrophils 0.46, sodium 133, potassium 3, BUN 56, creatinine 1.4 to, glucose 102, lactic acid 1.4, magnesium 2.1, troponin 0.017. UA reporting 90 hyalinecast, occasional mucus. Chest x-ray reporting no acute process, right upper lobe nodular density previously reported on prior PET CT Scan, density along the anterior margin of the first right rib, too small to characterize. EKG brain sinus rhythm with PVCs Review of Systems ROS Statement: Those systems with pertinent positive or pertinent negative responses have been documented in the HPI. ROS Other: All systems not noted in ROS Statement are negative. Past Medical History Past Medical History: Cancer, COPD, Hearing Disorder / Deafness, Pneumonia, Prostate Disorder, Syncope Additional Past Medical History / Comment(s): 05/10/20 pericardial effusion with early cardiac tamponade/acute respiratory failure with pericardiocentesis/pneumonia/bilateral leg edema, cancer pericardial sac/chest lymph nodes per pt/spouse-receiving chemotherapy-last time 07/07/20 which was his second dose/has had diarrhea since 2nd dose, vertigo when first standing/syncope, recent anemia with transfusion, lung nodules being monitored and thought possibly scarring from previous pneumonia, prostate cancer with surgery, skin cancer with removals, duodenal ulcer, gastritis, hiatal hernia per 05/18/20 EGD/spouse, severe clausterphobia, 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 and has had falls out of bed, bilateral [place] and tinnitis, past alcoholism per pt but quit drinking 30 plus yrs ago. History of Any Multi-Drug Resistant Organisms: None Reported Past Surgical History: Joint Replacement, Prostate Surgery Additional Past Surgical History / Comment(s): 05/18/20 EGD, colonoscopy, robot assisted laparoscopic prostatectomy with bilateral lymph node dissection, skin cancer removals, rt hip replacement Past Anesthesia/Blood Transfusion Reactions: No Reported Reaction Additional Past Anesthesia/Blood Transfusion Reaction / Comment(s): Claustrophobic. Smoking Status: Former smoker - Past Family History Mother Family Medical History: Cancer, Dementia Additional Family Medical History / Comment(s): breast cancer, ETOH abuse Father Family Medical History: COPD, Dementia, Musculoskeletal Disorder, Neurologic Disorder Additional Family Medical History / Comment(s): Parkinson's disease, ETOH abuse. Medications and Allergies Home Medications Medication Instructions Recorded Confirmed Type Umeclidinium Brm/Vilanterol Tr 1 puff INHALATION RT-DAILY 03/01/19 07/13/20 History [Anoro Ellipta 62.5-25 Mcg INH] clonazePAM [KlonoPIN] 0.5 mg PO HS 03/01/19 07/13/20 History Albuterol Inhaler [Ventolin Hfa 2 puff INHALATION RT-QID #2 puff 04/27/20 07/13/20 Rx Inhaler] Albuterol Nebulized [Ventolin 2.5 mg INHALATION RT-QID PRN 05/09/20 07/13/20 History Nebulized] Folic Acid 1 mg PO DAILY 07/13/20 07/13/20 History Furosemide [Lasix] 40 mg PO BID 07/13/20 07/13/20 History Ondansetron [Zofran] 4 mg PO Q4H PRN 07/13/20 07/13/20 History Potassium Chloride [Klor-Con 20] 20 meq PO DAILY 07/13/20 07/13/20 History Allergies Allergy/AdvReac Type Severity Reaction Status Date / Time Sulfa (Sulfonamide Allergy Unknown Rash/Hives Verified 07/13/20 08:07 Antibiotics) tetracycline Allergy Unknown UNKNOWN- Verified 07/13/20 08:07 TAKEN FROM OR BOARDING SHEET. Physical Exam Vitals: Vital Signs Temp Pulse Pulse Resp BP BP BP 07/13/20 11:55 97.6 F 65 18 102/65 07/13/20 07:33 65 18 133/79 07/13/20 07:22 75 18 72/62 07/13/20 07:20 75 18 95/64 07/13/20 07:18 67 18 07/13/20 06:17 97.9 F 74 18 107/65 BP Pulse Ox 07/13/20 11:55 98 07/13/20 07:33 100 07/13/20 07:22 99 07/13/20 07:20 99 07/13/20 07:18 142/83 100 07/13/20 06:17 97 Intake and Output 07/12/20 07/13/20 07/13/20 22:59 06:59 14:59 Other: Weight 73.663 kg 73.663 kg - Exam GENERAL: Sitting up on stretcher, no acute distress HEAD: Atraumatic, normocephalic. EYES: Pupils equal round and reactive to light,conjunctiva are normal. ENT:nares patent, oropharynx clear without exudates. Oral mucosa moist NECK: Normal range of motion, no JVD LUNGS: Breath sounds diminished, HEART: Regular rate and rhythm without murmurs, rubs or gallops.S1,S2 Normal. ABDOMEN: Soft, nontender, normoactive bowel sounds. No guarding, no rebound. EXTREMITIES: Normal range of motion, softer/decreasing edema. No clubbing or cyanosis. NEUROLOGICAL: Cranial nerves II through XII grossly intact. No focal deficits. PSYCH: Normal mood, normal affect. SKIN: Warm, Dry, normal turgor, no rashes. Results CBC & Chem 7: 07/13/20 06:33 07/13/20 06:33 Labs: Abnormal Lab Results - Last 24 Hours (Table) 07/13/20 07/13/20 07/13/20 Range/Units 06:33 06:33 06:33 WBC 1.4 L* (3.8-10.6) k/uL RBC 3.14 L (4.30-5.90) m/uL Hgb 9.6 L D (13.0-17.5) gm/dL Hct 29.4 L (39.0-53.0) % RDW 16.2 H (11.5-15.5) % Neutrophils # (Manual) 0.46 L* (1.3-7.7) k/uL Lymphocytes # (Manual) 0.81 L (1.0-4.8) k/uL APTT (22.0-30.0) sec Sodium 133 L (137-145) mmol/L Potassium 3.0 L (3.5-5.1) mmol/L Chloride 94 L (98-107) mmol/L BUN 56 H (9-20) mg/dL Creatinine 1.42 H (0.66-1.25) mg/dL Glucose 102 H (74-99) mg/dL Urine Protein Trace H (Negative) Hyaline Casts 90 H (0-2) /lpf Urine Mucus Occasional H (None) /hpf 07/13/20 Range/Units 06:39 WBC (3.8-10.6) k/uL RBC (4.30-5.90) m/uL Hgb (13.0-17.5) gm/dL Hct (39.0-53.0) % RDW (11.5-15.5) % Neutrophils # (Manual) (1.3-7.7) k/uL Lymphocytes # (Manual) (1.0-4.8) k/uL APTT 20.2 L (22.0-30.0) sec Sodium (137-145) mmol/L Potassium (3.5-5.1) mmol/L Chloride (98-107) mmol/L BUN (9-20) mg/dL Creatinine (0.66-1.25) mg/dL Glucose (74-99) mg/dL Urine Protein (Negative) Hyaline Casts (0-2) /lpf Urine Mucus (None) /hpf Thrombosis Risk Factor Assmnt - Choose All That Apply Any of the Below Risk Factors Present?: Yes Each Factor Represents 1 point: Abnormal pulmonary function (COPD) Other Risk Factors: Yes Each Risk Factor Represents 2 Points: Age 61-74 years, Malignancy Other congenital or acquired thrombophilia - If yes, enter type in comment: No Thrombosis Risk Factor Assessment Total Risk Factor Score: 5 Thrombosis Risk Factor Assessment Level: High Risk Assessment and Plan Assessment: Recurrent near syncope, multifactorial in a patient with lung CA, metastatic adenocarcinoma who received his chemotherapy on Friday ,secondary to d ehydration, orthostatic hypotension, doubtful seizures, in a patient with history of large pericardial effusion with early cardiac tamponade requiring emergent percutaneous pericardial drain. Acute renal failure, cardiorenal Hypokalemia Dehydration Diarrhea Leukopenia Neutropenia COPD, chronic History of nicotine dependence, [id number] History of prostate and skin cancer Plan: Continue on current medication regime ,monitoring and symptomatic treatment. PPI. IV fluid hydration. Reverse isolation, neutrophils in the 40s. Diarrhea cultures to be sent ruling out C. difficile. Coronavirus test ordered .Echo ordered. Potassium replacement protocol ordered. Recheck potassium level this afternoon. Orthostatic vital signs every shift. Oncology, Neurology and cardiology consulted. EEG. Prognosis guarded given multiple complex medical issues. The impression and plan of care has been dictated as directed. : I performed a history and examination of this patient, discussed the same with the dictator. I agree with the dictator's note ,documented as a scribe. Any additional findings or plans will be noted.
--- NOTE | 2020-07-13 16:57 | P.CONS ---
History of Present Illness - Reason for Consult Consult date: 07/13/20 Lung cancer Requesting physician: Samantha Schwartz - Chief Complaint Dehydration, weakness - History of Present Illness Mr Lewis is a pleasant white male, initially seen in consultation at [facility] on 05/16/20. The patient had presented with progressive sh ortness of breath with x-ray showing new small pleural effusions. Patient did have a known history of COPD and smoking. The patient will also noted to have bilateral lower extremity edema with echocardiogram showing ejection fraction in the 40 happened 45% with large pericardial effusion. The patient had percutaneous pericardial drainage of 05/10/20 with cytology positive for metastatic adenocarcinoma, consistent with lung or upper GI primary. Patient had a prior history of prostate cancer with a radical prostatectomy in 03/12. PSA was normal. He had an EGD showing some irregular areas on the duodenum and distal esophagus, with biopsy negative for malignancy. MRI of the abdomen did not show any abnormality in the liver or pancreas. Clinically it was it was therefore felt to be reasonable to treated as a lung primary. Patient had biomarker testing done with NGS, that was negative. he also had a PET scan, that showed uptake only in the mediastinal node, as well as some uptake in nonenlarged right supraclavicular and hilar nodes. he was seen for his first office visit on 06/06/20.He was started on treatment with carboplatin plus Alimta plus Keytruda, started on 06/16/20. Last treatment 07/07/20 He presents with weakness, near syncopal, and persistent diarrhea. Seen and evaluated in Emergency. On admission he is neutropenic, he did not receive growth factor as outpatient, therefore this has been ordered to begin. ALso with diarrhea and abdominal tenderness need to always consider the possibility of colitis and neutropenia, patient is also on imune therapy so increased risk for inflammatory effects. Therefore patient has been placed NPO for now to allow rest of bowel. Herrera cultures with stool studies, blood cultures and urine ordered. Afebrile Review of Systems All systems: negative (HPI) Past Medical History Past Medical History: Cancer, COPD, Hearing Disorder / Deafness, Pneumonia, P rostate Disorder, Syncope Additional Past Medical History / Comment(s): 05/10/20 pericardial effusion with early cardiac tamponade/acute respiratory failure with pericardiocent esis/pneumonia/bilateral leg edema, cancer pericardial sac/chest lymph nodes per pt/spouse-receiving chemotherapy-last time 07/07/20 which was his second dose/has had diarrhea since 2nd dose, vertigo when first standing/syncope, recent anemia with transfusion, lung nodules being monitored and thought possibly scarring from previous pneumonia, prostate cancer with surgery, skin cancer with removals , duodenal ulcer, gastritis, hiatal hernia per 05/18/20 EGD/spouse, severe clausterphobia, 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 History of Any Multi-Drug Resistant Organisms: None Reported Past Surgical History: Joint Replacement, Prostate Surgery Additional Past Surgical History / Comment(s): 05/18/20 EGD, colonoscopy, robot assisted laparoscopic prostatectomy with bilateral lymph node dissection, skin cancer removals, rt hip replacement Past Anesthesia/Blood Transfusion Reactions: No Reported Reaction Additional Past Anesthesia/Blood Transfusion Reaction / Comm: Claustrophobic. Smoking Status: Former smoker - Past Family History Mother Family Medical History: Cancer, Dementia Additional Family Medical History / Comment(s): breast cancer, ETOH abuse Father Family Medical History: COPD, Dementia, Musculoskeletal Disorder, Neurologic Disorder Additional Family Medical History / Comment(s): Parkinson's disease, ETOH abuse. Medications and Allergies Home Medications Medication Instructions Recorded Confirmed Type Umeclidinium Brm/Vilanterol Tr 1 puff INHALATION RT-DAILY 03/01/19 07/13/20 History [Anoro Ellipta 62.5-25 Mcg INH] clonazePAM [KlonoPIN] 0.5 mg PO HS 03/01/19 07/13/20 History Albuterol Inhaler [Ventolin Hfa 2 puff INHALATION RT-QID #2 puff 04/27/20 07/13/20 Rx Inhaler] Albuterol Nebulized [Ventolin 2.5 mg INHALATION RT-QID PRN 05/09/20 07/13/20 History Nebulized] Folic Acid 1 mg PO DAILY 07/13/20 07/13/20 History Furosemide [Lasix] 40 mg PO BID 07/13/20 07/13/20 History Ondansetron [Zofran] 4 mg PO Q4H PRN 07/13/20 07/13/20 History Potassium Chloride [Klor-Con 20] 20 meq PO DAILY 07/13/20 07/13/20 History Allergies Allergy/AdvReac Type Severity Reaction Status Date / Time Sulfa (Sulfonamide Allergy Unknown Rash/Hives Verified 07/13/20 08:07 Antibiotics) tetracycline Allergy Unknown UNKNOWN- Verified 07/13/20 08:07 TAKEN FROM OR BOARDING SHEET. Physical Exam Vitals: Vital Signs Temp Pulse Pulse Resp BP BP BP 07/13/20 11:55 97.6 F 65 18 102/65 07/13/20 07:33 65 18 133/79 07/13/20 07:22 75 18 72/62 07/13/20 07:20 75 18 95/64 07/13/20 07:18 67 18 07/13/20 06:17 97.9 F 74 18 107/65 BP Pulse Ox 07/13/20 11:55 98 07/13/20 07:33 100 07/13/20 07:22 99 07/13/20 07:20 99 07/13/20 07:18 142/83 100 07/13/20 06:17 97 Intake and Output 07/13/20 07/13/20 07/13/20 06:59 14:59 22:59 Other: Weight 73.663 kg 73.663 kg - Constitutional General appearance: cooperative, no acute distress - EENT Eyes: EOMI, poor dentition ENT: hard of hearing, NA/AT, normal oropharynx - Neck Neck: normal ROM - Respiratory Respiratory: bilateral: diminished - Cardiovascular Rhythm: regular Heart sounds: normal: S1, S2 leg Peripheral Edema: bilateral: Trace - Gastrointestinal General gastrointestinal: normal bowel sounds, soft - Integumentary Integumentary: pale - Musculoskeletal Musculoskeletal: generalized weakness - Psychiatric Psychiatric: A&O x's 3 Results CBC & Chem 7: 07/13/20 06:33 07/13/20 06:33 Labs: Abnormal Lab Results - Last 24 Hours (Table) 07/13/20 07/13/20 07/13/20 Range/Units 06:33 06:33 06:33 WBC 1.4 L* (3.8-10.6) k/uL RBC 3.14 L (4.30-5.90) m/uL Hgb 9.6 L D (13.0-17.5) gm/dL Hct 29.4 L (39.0-53.0) % RDW 16.2 H (11.5-15.5) % Neutrophils # (Manual) 0.46 L* (1.3-7.7) k/uL Lymphocytes # (Manual) 0.81 L (1.0-4.8) k/uL APTT (22.0-30.0) sec Sodium 133 L (137-145) mmol/L Potassium 3.0 L (3.5-5.1) mmol/L Chloride 94 L (98-107) mmol/L BUN 56 H (9-20) mg/dL Creatinine 1.42 H (0.66-1.25) mg/dL Glucose 102 H (74-99) mg/dL Urine Protein Trace H (Negative) Hyaline Casts 90 H (0-2) /lpf Urine Mucus Occasional H (None) /hpf 07/13/20 Range/Units 06:39 WBC (3.8-10.6) k/uL RBC (4.30-5.90) m/uL Hgb (13.0-17.5) gm/dL Hct (39.0-53.0) % RDW (11.5-15.5) % Neutrophils # (Manual) (1.3-7.7) k/uL Lymphocytes # (Manual) (1.0-4.8) k/uL APTT 20.2 L (22.0-30.0) sec Sodium (137-145) mmol/L Potassium (3.5-5.1) mmol/L Chloride (98-107) mmol/L BUN (9-20) mg/dL Creatinine (0.66-1.25) mg/dL Glucose (74-99) mg/dL Urine Protein (Negative) Hyaline Casts (0-2) /lpf Urine Mucus (None) /hpf CT Scan - head: report reviewed Assessment and Plan (1) Diarrhea Current Visit: Yes Status: Acute Code(s): R19.7 - DIARRHEA, UNSPECIFIED SNOMED Code(s): 17055831 (2) Dehydration Current Visit: Yes Status: Acute Code(s): E86.0 - DEHYDRATION SNOMED Code(s): 02014846 (3) Hypokalemia Current Visit: Yes Status: Acute Code(s): E87.6 - HYPOKALEMIA SNOMED Code(s): 39932934 (4) Neutropenia Current Visit: Yes Status: Acute Code(s): D70.9 - NEUTROPENIA, UNSPECIFIED SNOMED Code(s): 362906025 (5) Adenocarcinoma Current Visit: No Status: Acute Code(s): C80.1 - MALIGNANT (PRIMARY) NEOPLASM, UNSPECIFIED SNOMED Code(s): 932049472 Plan: Assessment and recommendations: Metastatic Adenocarcinoma of the Lung: - Status Post cycle two of carboplatin, almta, and Immune therapy - No growth factor with treatment outpatient - Hold treatment until resolution of acute situation Question seizure activity: - Assess further for metastatic disease - Neurology following - EEG Severe weakness and Syncopal episode: - Maybe secondary to dehydration and diarrhea - MRI of brain ordered to further assess - Known Pericardial effusion (malignant) Repeat Echo and cardiology to follow Acute Renal Insufficiency: - Secondary to Dehydration and Diarrhea Diarrhea: - Stool studies ordered - Add Questran - NPO while diarrhea and neutropenic for concern of colitis Neutropenia: - Ad Zarxio - Herrera Culture for infection Physician Attest: I have completed the full history and physical and agree with above dictation dictated as a scribe.
[2020-07-13] MEDS: FILGRASTIM-SNDZ 480 MCG/0.8 ML SYRINGE SQ SCH (17:21)
[2020-07-13] MEDS: PANTOPRAZOLE 40 MG/10 ML VIAL IVP SCH (17:27)
[2020-07-13] MEDS: SYMBICORT 80-4.5 MCG INHALER INHALATION SCH (20:28)
[2020-07-13] MEDS: POTASSIUM CHLORIDE ER 20 MEQ TAB.ER PO SCH ×2 (21:22→22:04)
[2020-07-13] MEDS: clonazePAM 0.5 MG TAB PO SCH (21:22)
[2020-07-14 02:49] LABS: Appearance,Urine Clear (Clear); Bilirubin,Urine Negative (Negative); Blood,Urine Negative (Negative); Color,Urine Light Yellow; Glucose,Urine (UA) Negative (Negative); Ketones,Urine Negative (Negative); Leukocyte Esterase,Urine Negative (Negative); Nitrite,Urine Negative (Negative); Protein,Urine Negative (Negative); Specific Gravity,Urine 1.006 (1.001-1.035); Urobilinogen,Urine <2.0 mg/dL (<2.0)
[2020-07-14] MEDS: SODIUM CHLORIDE 0.9% 1,000 ML IV SCH ×2 (05:30→14:34)
[2020-07-14 07:36] LABS: Potassium 3.8 mmol/L (3.5-5.1); Total Bilirubin 0.6 mg/dL (0.2-1.3); Total Protein 5.2 g/dL (6.3-8.2)
[2020-07-14 07:59] LABS: Anisocytosis Slight; MCH 30.7 pg (25.0-35.0); MCHC 31.6 g/dL (31.0-37.0); MCV 97.1 fL (80.0-100.0); Macrocytosis Slight; Mean Platelet Volume 7.9; Platelet Count 210 k/uL (150-450); RBC 2.57 m/uL (4.30-5.90); RDW 16.4 % (11.5-15.5)
[2020-07-14 08:05] LABS: WBC 0.6 k/uL (3.8-10.6)
[2020-07-14 08:06] LABS: HGB 7.9 gm/dL (13.0-17.5)
[2020-07-14] MEDS: IPRATROPIUM-ALBUTEROL 3 ML NEB INHALATION SCH ×4 (08:15→20:18)
[2020-07-14] MEDS: SYMBICORT 80-4.5 MCG INHALER INHALATION SCH ×2 (08:15→20:18)
[2020-07-14] MEDS: FILGRASTIM-SNDZ 480 MCG/0.8 ML SYRINGE SQ SCH (10:26)
[2020-07-14] MEDS: PANTOPRAZOLE 40 MG/10 ML VIAL IVP SCH (10:26)
[2020-07-14] MEDS: FOLIC ACID 1 MG TAB PO SCH (10:26)
--- NOTE | 2020-07-14 10:36 | P.CRDCN ---
History of Present Illness Consult date: 07/14/20 Reason for Consult (text): Orthostatic hypotension History of present illness: HISTORY OF PRESENTING ILLNESS This is a pleasant 74-year-old male past medical history significant for COPD, prostate issues, recent workup in the last 3 months revealing large pericardial effusion which was drained and had a malignant cells as well as lymphadenopathy which was malignant of unknown primary. He has been seen oncology and has undergone 2 doses of chemotherapy. At the time of his prior admission back in April he was found to have a large pericardial effusion which was drained, no pericardial window was performed per patient. Since that time he has been doing fairly well. He denies any chest pain or pressure. Denies shortness of breath other than what he attributes to his COPD. He did undergo repeat chemotherapy 2 weeks ago and admits since that time he has not felt well. He admits to constant diarrhea and had no appetite up until last few days. He is also been experiencing severe orthostatic hypotension with flushed feeling and li ghtheadedness often when he sits up or stands up. He admits this has caused him to pass out and fallen on occasion. He also has had prolonged periods of confusion after these episodes. He admits prior to this he did not have issues. Denies any lightheadedness other than when he is standing up from a seated position. He has been on Lasix 40 mg twice a day at home. DIAGNOSTICS EKG reveals sinus rhythm with PAC. Chest xray no acute process, COPD findings. Laboratory reviewed, leukopenia and anemia with a hemoglobin of 7.9. Acute kidney injury with creatinine 1.4, improved today to 1.04. REVIEW OF SYSTEMS At the time of my exam: CONSTITUTIONAL: Denies fever or chills. CARDIOVASCULAR: Denies chest pain, +shortness of breath attributed to his COPD, no orthopnea, PND or palpitations. RESPIRATORY: Denies cough. GASTROINTESTINAL: Denies abdominal pain, +diarrhea, no constipation, nausea or vomiting. MUSCULOSKELETAL: Denies myalgias. NEUROLOGIC: Denies numbness, tingling or weakness. ENDOCRINE: Denies fatigue, weight change, polydipsia or polyurina. GENITOURINARY: Denies burning, hematuria or urgency with micturation. HEMATOLOGIC: Denies history of anemia or bleeding. PHYSICAL EXAMINATION Blood pressure 141/67 heart rate 63 afebrile and maintaining oxygen saturation on room air. He did have orthostatic vitals performed in the emergency department with blood pressure dropping from 142/83-72/62 with standing CONSTITUTIONAL: No apparent distress. HEENT: Head is normocephalic. Pupils are equal, round. Sclerae anicteric. Mucous membranes of the mouth are moist. No JVD. No carotid bruit. CHEST EXAMINATION: Lungs are clear to auscultation. No chest wall tenderness is noted on palpation or with deep breathing. HEART EXAMINATION: Regular rate and rhythm. S1, S2 heard. No murmurs, gallops or rub. ABDOMEN: Soft, nontender. Positive bowel sounds. EXTREMITIES: 2+ peripheral pulses, no lower extremity edema and no calf tenderness. NEUROLOGIC EXAMINATION: Patient is awake, alert and oriented x3. ASSESSMENT 1. Orthostatic hypotension, likely exacerbated by anemia, dehydration. Rule out recurrence of pericardial effusion. Rule out significant carotid disease area and 2. 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 Patient states he had an echo 10 days ago which did not show recurrence. 3. Anemia and leukopenia from chemotherapy 4. Metastatic cancer with lymphadenopathy and malignant pericardial effusion, per patient unknown primary. Undergoing chemotherapy. 5. Syncope which appears related to severe orthostatic hypotension. Always occurs with standing from a seated position PLAN Agree with IV fluids and assess response. This morning's orthostatic vitals appear improved. We will check a 2-D echo to rule out reaching the patient of pericardial effusion as well as for LV function. No significant arrhythmia noted on EKG or telemetry and all of patient's episodes appear to correspond to him standing up. If patient has persistent orthostatic hypotension despite provision of dehydration anemia, we may consider medication such as Midrin and Florinef. Advised patient on staying hydrated. Would discontinue home Lasix on discharge. Advised patient compression stockings also may help. Past Medical History Past Medical History: Cancer, COPD, Hearing Disorder / Deafness, Pneumonia, Prostate Disorder, Syncope Additional Past Medical History / Comment(s): 05/10/20 pericardial effusion with early cardiac tamponade/acute respiratory failure with renata cardiocentesis/pneumonia/bilateral leg edema, cancer pericardial sac/chest lymph nodes per pt/spouse-receiving chemotherapy-last time 07/07/20 which was his second dose/has had diarrhea since 2nd dose, vertigo when first standing/syncope, recent anemia with transfusion, lung nodules being monitored and thought possibly scarring from previous pneumonia, prostate cancer with surgery, skin cancer with removals, duodenal ulcer, gastritis, hiatal hernia per 05/18/20 EGD/spouse, severe clausterphobia, 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 History of Any Multi-Drug Resistant Organisms: None Reported Past Surgical History: Joint Replacement, Prostate Surgery Additional Past Surgical History / Comment(s): 05/18/20 EGD, colonoscopy, robot assisted laparoscopic prostatectomy with bilateral lymph node dissection, skin cancer removals, rt hip replacement Past Anesthesia/Blood Transfusion Reactions: No Reported Reaction Additional Past Anesthesia/Blood Transfusion Reaction / Comment(s): Claustrophobic. Smoking Status: Former smoker - Past Family History Mother Family Medical History: Cancer, Dementia Additional Family Medical History / Comment(s): breast cancer, ETOH abuse Father Family Medical History: COPD, Dementia, Musculoskeletal Disorder, Neurologic Disorder Additional Family Medical History / Comment(s): Parkinson's disease, ETOH abuse. Medications and Allergies Home Medications Medication Instructions Recorded Confirmed Type Umeclidinium Brm/Vilanterol Tr 1 puff INHALATION RT-DAILY 03/01/19 07/13/20 History [Anoro Ellipta 62.5-25 Mcg INH] clonazePAM [KlonoPIN] 0.5 mg PO HS 03/01/19 07/13/20 History Albuterol Inhaler [Ventolin Hfa 2 puff INHALATION RT-QID #2 puff 04/27/20 07/13/20 Rx Inhaler] Albuterol Nebulized [Ventolin 2.5 mg INHALATION RT-QID PRN 05/09/20 07/13/20 History Nebulized] Folic Acid 1 mg PO DAILY 07/13/20 07/13/20 History Furosemide [Lasix] 40 mg PO BID 07/13/20 07/13/20 History Ondansetron [Zofran] 4 mg PO Q4H PRN 07/13/20 07/13/20 History Potassium Chloride [Klor-Con 20] 20 meq PO DAILY 07/13/20 07/13/20 History Allergies Allergy/AdvReac Type Severity Reaction Status Date / Time Sulfa (Sulfonamide Allergy Unknown Rash/Hives Verified 07/13/20 08:07 Antibiotics) tetracycline Allergy Unknown UNKNOWN- Verified 07/13/20 08:07 TAKEN FROM OR BOARDING SHEET. Physical Exam Vitals: Vital Signs Temp Pulse Pulse Resp BP BP BP 07/14/20 03:10 98.4 F 63 18 07/14/20 03:09 60 18 07/14/20 00:00 98.0 F 60 18 102/57 92/40 07/13/20 20:43 76 07/13/20 20:29 72 07/13/20 20:00 98.2 F 60 18 113/60 07/13/20 16:45 98.9 F 63 18 117/62 07/13/20 11:55 97.6 F 65 18 102/65 BP Pulse Ox 07/14/20 03:10 141/67 96 07/14/20 03:09 07/14/20 00:00 111/59 95 07/13/20 20:43 07/13/20 20:29 07/13/20 20:00 97 07/13/20 16:45 96 07/13/20 11:55 98 Intake and Output 07/13/20 07/14/20 07/14/20 22:59 06:59 14:59 Intake Total 240 800 240 Output Total 375 550 400 Balance -135 250 -160 Intake: Intake, IV Titration 800 Amount Sodium Chloride 0.9% 1, 800 000 ml @ 100 mls/hr IV . Q10H [facility] Rx#:[id number] Oral 240 240 Output: Urine 375 550 400 Other: Voiding Method Toilet Toilet Urinal Urinal # Voids 1 2 # Bowel Movements 1 1 1 Weight 75.1 kg Results 07/14/20 06:05 07/14/20 06:05 Cardiac Enzymes 07/14/20 Range/Units 06:05 AST 28 (17-59) U/L CBC 07/14/20 Range/Units 06:05 RBC 2.57 L (4.30-5.90) m/uL Hgb 7.9 L D (13.0-17.5) gm/dL Hct 25.0 L (39.0-53.0) % Plt Count 210 (150-450) k/uL Comprehensive Metabolic Panel 07/13/20 07/14/20 Range/Units 16:37 06:05 Sodium 134 L (137-145) mmol/L Potassium 3.3 L 3.8 (3.5-5.1) mmol/L Chloride 103 (98-107) mmol/L Carbon Dioxide 26 (22-30) mmol/L BUN 32 H (9-20) mg/dL Creatinine 1.04 (0.66-1.25) mg/dL Glucose 83 (74-99) mg/dL Calcium 8.0 L (8.4-10.2) mg/dL AST 28 (17-59) U/L ALT 16 (4-49) U/L Alkaline Phosphatase 63 (38-126) U/L Total Protein 5.2 L (6.3-8.2) g/dL Albumin 3.0 L (3.5-5.0) g/dL Current Medications Generic Name Dose Route Start Last Admin Trade Name Freq PRN Reason Stop Dose Admin Acetaminophen 650 mg 07/13/20 07:52 Tylenol Tab PO Q6HR PRN Mild Pain or Fever > 100.5 Albuterol/Ipratropium 3 ml 07/13/20 16:00 07/14/20 08:15 Duoneb 0.5 Mg-3 Mg/3 Ml Soln INHALATION Not Given RT-QID RUPERTO Albuterol/Ipratropium 3 ml 07/13/20 13:25 Duoneb 0.5 Mg-3 Mg/3 Ml Soln INHALATION RT-Q2H PRN Shortness Of Breath Or Wheezing Budesonide/Formoterol Fumarate 2 puff 07/13/20 20:00 07/14/20 08:15 Symbicort 80-4.5 Mcg Inhaler INHALATION Not Given RT-BID RUPERTO Clonazepam 0.5 mg 07/13/20 21:00 07/13/20 21:22 Klonopin PO 0.5 mg HS RUPERTO Administration Filgrastim-Sndz 480 mcg 07/13/20 16:45 07/13/20 17:21 Zarxio SQ 480 mcg DAILY RUPERTO Administration Folic Acid 1 mg 07/14/20 09:00 Folic Acid PO DAILY RUPERTO Sodium Chloride 1,000 mls @ 100 mls/hr 07/13/20 08:00 07/14/20 05:30 Saline 0.9% IV 100 mls/hr .Q10H RUPERTO Administration Lorazepam 0.5 mg 07/13/20 07:52 Ativan PO Q6HR PRN Anxiety Miscellaneous Information 1 each 07/13/20 16:19 Potassium Per Protocol MISCELLANE DAILY PRN Per Protocol Protocol Miscellaneous Information 1 each 07/13/20 17:49 Potassium Per Protocol MISCELLANE DAILY PRN Per Protocol Protocol Naloxone HCl 0.2 mg 07/13/20 07:52 Narcan IV Q2M PRN Opioid Reversal Ondansetron HCl 4 mg 07/13/20 07:52 Zofran IVP Q8HR PRN Nausea And Vomiting Ondansetron HCl 4 mg 07/13/20 13:26 Zofran PO Q4H PRN Nausea Oxycodone/Acetaminophen 1 each 07/13/20 07:52 Percocet 5-325 PO Q4HR PRN Severe Pain Pantoprazole Sodium 40 mg 07/13/20 17:00 07/13/20 17:27 Protonix IVP 40 mg DAILY RUPERTO Administration Intake and Output 07/13/20 07/14/20 07/14/20 22:59 06:59 14:59 Intake Total 240 800 240 Output Total 375 550 400 Balance -135 250 -160 Intake: Intake, IV Titration 800 Amount Sodium Chloride 0.9% 1, 800 000 ml @ 100 mls/hr IV . Q10H RUPERTO Rx#:[id number] Oral 240 240 Output: Urine 375 550 400 Other: Voiding Method Toilet Toilet Urinal Urinal # Voids 1 2 # Bowel Movements 1 1 1 Weight 75.1 kg 07/14/20 06:05 07/14/20 06:05
[2020-07-14 11:26] LABS: Poikilocytosis (M) Present; RBC Fragments Present
--- NOTE | 2020-07-14 11:48 | ECHOF ---
Referral Reason:lv fx, hx pericardial effusion, orthostatic hypote MEASUREMENTS -------- HEIGHT: 180.3 cm WEIGHT: 74.8 kg BP: 141/67 RVIDd: 3.3 cm (< 3.3) IVSd: 1.1 cm (0.6 - 1.1) LVIDd: 4.3 cm (3.9 - 5.3) LVPWd: 1.2 cm (0.6 - 1.1) IVSs: 1.7 cm LVIDs: 1.5 cm LVPWs: 1.6 cm LAESV Index (A-L): 26.88 ml/m Ao Diam: 2.9 cm (2.0 - 3.7) AV Cusp: 1.7 cm (1.5 - 2.6) LA Diam: 3.8 cm (2.7 - 3.8) MV EXCURSION: 17.007 mm (> 18.000) MV EF SLOPE: 123 mm/s (70 - 150) EPSS: 0.4 cm MV E Rafael: 0.76 m/s MV DecT: 288 ms MV A Rafael: 1.24 m/s MV E/A Ratio: 0.61 AV maxP.12 mmHg AV meanP.17 mmHg RAP: 5.00 mmHg RVSP: 18.48 mmHg TAPSE: 29.15 mm FINDINGS -------- This was a technically good study. The left ventricular size is normal. There is mild concentric left ventricular hypertrophy. Overa ll left ventricular systolic function is normal with, an EF between 55 - 60 %. The diastolic fillin g pattern is normal for the age of the patient 8.22. The right ventricle is normal in size. The left atrial size is normal. Normal LA size by volume 22+/-6 ml/m2. The right atrial size is normal. The aortic valve is trileaflet and appears structurally normal. The mitral valve is normal. Mild mitral regurgitation is present. The tricuspid valve appears structurally normal. Mild tricuspid regurgitation present. Right vent ricular systolic pressure is normal at < 35 mmHg. Pulmonic valve appears structurally normal. The aortic root size is normal. Normal inferior vena cava with normal inspiratory collapse consistent with estimated right atrial pre ssure of 5 mmHg. There is no pericardial effusion. CONCLUSIONS -------- 1. The left ventricular size is normal. 2. There is mild concentric left ventricular hypertrophy. 3. Overall left ventricular systolic function is normal with, an EF between 55 - 60 %. 4. The diastolic filling pattern is normal for the age of the patient 8.22 5. Mild mitral regurgitation is present. 6. Mild tricuspid regurgitation present. [employer] WORKER: Marissa Brown RDCS
--- NOTE | 2020-07-14 11:48 | US ---
EXAMINATION TYPE: US carotid duplex BILAT DATE OF EXAM: 07/14/2020 COMPARISON: NONE CLINICAL HISTORY: Dizziness. Dizziness EXAM MEASUREMENTS: RIGHT: Peak Systolic Velocity (PSV) cm/sec ----- Right CCA: 78.4 ----- Right ICA: 82.7 ----- Right ECA: 94.4 ICA/CCA ratio: 1.1 RIGHT: End Diastole cm/sec ----- Right CCA: 15.9 ----- Right ICA: 17.3 ----- Right ECA: 10.0 LEFT: Peak Systolic Velocity (PSV) cm/sec ----- Left CCA: 88.5 ----- Left ICA: 104.5 ----- Left ECA: 117.7 ICA/CCA ratio: 1.2 LEFT: End Diastole cm/sec ----- Left CCA: 17.3 ----- Left ICA: 30.4 ----- Left ECA: 9.5 VERTEBRALS (direction of flow): Right Vertebral: Antegrade Left Vertebral: Antegrade Rhythm: Normal No significant stenosis seen IMPRESSION: 1. No evidence of significant hemodynamic stenosis as visualized Criteria for Assigning % of Stenosis / Diameter reduction (Estimation based on the indirect measurements of the internal carotid artery velocities (ICA PSV). 1. Normal (no stenosis)=ICA PSV < 125 cm/s: ratio < 2.0: ICA EDV<40 cm/s. 2. Less than 50% stenosis=ICA PSV < 125 cm/s: ratio < 2.0: ICA EDV<40 cm/s. 3. 50 to 69% stenosis=ICA PSV of 125 to 230 cm/s: ration 2.0 ? 4.0: ICA EDV 40-100 cm/s. 4. Greater than 70% stenosis to near occlusion= ICA PSV > 230 cm/s: ratio > 4.0: ICA EDV > 100 cm/s. 5. Near occlusion= ICA PSV velocities may be low or undetectable: variable ratio and ICA EDV. 6. Total occlusion=unable to detect flow.
--- NOTE | 2020-07-14 13:40 | P.PN ---
Subjective Progress Note Date: 07/14/20 Principal diagnosis: Neutropenia, Diarrhea, Seizure activity(?) Abdominal exam negative, education on smallmeals and if any pain or diarrhea after eating will need to be NPO, discussed with primary team Objective - Vital Signs Vital signs: Vital Signs Temp 97.9 F 07/14/20 08:20 Pulse 90 07/14/20 08:20 Resp 18 07/14/20 08:20 BP 143/62 07/14/20 08:20 Pulse Ox 98 07/14/20 08:20 Intake & Output 07/13/20 07/14/20 07/14/20 18:59 06:59 18:59 Intake Total 1040 240 Output Total 225 700 550 Balance -225 340 -310 Weight 73.663 kg 75.1 kg Intake: Intake, IV Titration 800 Amount Sodium Chloride 0.9% 1, 800 000 ml @ 100 mls/hr IV . Q10H [facility] Rx#:[id number] Oral 240 240 Output: Urine 225 700 550 Other: Voiding Method Toilet Urinal # Voids 1 1 # Bowel Movements 1 1 1 - Exam - Constitutional General appearance: cooperative, no acute distress - EENT Eyes: EOMI, poor dentition ENT: hard of hearing, NA/AT, normal oropharynx - Neck Neck: normal ROM - Respiratory Respiratory: bilateral: diminished - Cardiovascular Rhythm: regular Heart sounds: normal: S1, S2 leg Peripheral Edema: bilateral: Trace - Gastrointestinal General gastrointestinal: normal bowel sounds, soft - Integumentary Integumentary: pale - Musculoskeletal Musculoskeletal: generalized weakness - Psychiatric Psychiatric: A&O x's 3 - Labs CBC & Chem 7: 07/14/20 06:05 07/14/20 06:05 Labs: Abnormal Lab Results - Last 24 Hours (Table) 07/13/20 07/14/20 07/14/20 Range/Units 16:37 06:05 06:05 WBC 0.6 L* (3.8-10.6) k/uL RBC 2.57 L (4.30-5.90) m/uL Hgb 7.9 L D (13.0-17.5) gm/dL Hct 25.0 L (39.0-53.0) % RDW 16.4 H (11.5-15.5) % Sodium 134 L (137-145) mmol/L Potassium 3.3 L (3.5-5.1) mmol/L BUN 32 H (9-20) mg/dL Calcium 8.0 L (8.4-10.2) mg/dL Total Protein 5.2 L (6.3-8.2) g/dL Albumin 3.0 L (3.5-5.0) g/dL Microbiology - Last 24 Hours (Table) 07/13/20 20:20 Stool Culture - Preliminary Stool Assessment and Plan (1) Diarrhea Current Visit: Yes Status: Acute Code(s): R19.7 - DIARRHEA, UNSPECIFIED SNOMED Code(s): 84932644 (2) Dehydration Current Visit: Yes Status: Acute Code(s): E86.0 - DEHYDRATION SNOMED Code(s): 59713803 (3) Hypokalemia Current Visit: Yes Status: Acute Code(s): E87.6 - HYPOKALEMIA SNOMED Code(s): 60826172 (4) Neutropenia Current Visit: Yes Status: Acute Code(s): D70.9 - NEUTROPENIA, UNSPECIFIED SNOMED Code(s): 299825306 (5) Adenocarcinoma Current Visit: No Status: Acute Code(s): C80.1 - MALIGNANT (PRIMARY) NEOPLASM, UNSPECIFIED SNOMED Code(s): 850396872 Plan: Assessment and recommendations: Metastatic Adenocarcinoma of the Lung: - Status Post cycle two of carboplatin, almta, and Immune therapy - No growth factor with treatment outpatient - Hold treatment until resolution of acute situation Question seizure activity: - Assess further for metastatic disease - Neurology following - EEG Severe weakness and Syncopal episode: - Maybe secondary to dehydration and diarrhea - MRI of brain ordered to further assess - Known Pericardial effusion (malignant) Repeat Echo and cardiology to follow Acute Renal Insufficiency: - Secondary to Dehydration and Diarrhea Diarrhea: - Stool studies ordered - Add Questran -Abdomen is non-acute on exam. Slow increased diet Neutropenia: - Ad Zarxio - Herrera Culture for infection Plan Physician Attest: I have completed the full history and physical and agree with above dictation dictated as a scribe.
[2020-07-14] MEDS ORDERED: LORazepam 2 MG/ML INJ IV PRN (13:54)
--- NOTE | 2020-07-14 14:29 | MR ---
EXAMINATION TYPE: MR brain wo/w con DATE OF EXAM: 07/14/2020 2:18 PM COMPARISON: 05/19/2020 HISTORY: MS changes, Lung Cancer, weakness, black out symptoms CONTRAST: Patient received 7.5 mL intravenous Gadavist gadolinium contrast. Multiplanar and multispin-echo imaging of the brain was performed . Pre and post contrast enhanced i mages are obtained. The ventricles, basal cisterns and sulci overlying the cerebral convexities are mildly enlarged. There is evidence of mild periventricular white matter ischemic demyelination. Remote deep white matter insults are also noted. No acute edema is seen on diffusion weighted imaging. There is no evidence for midline shift or mass effect. Acute intracranial hemorrhage or extra-axial collection is not evident. No enhancing lesions are seen. The paranasal sinuses and mastoid air cells are well-aerated. IMPRESSION: Age-related atrophic and chronic small vessel ischemic change. No acute intracranial process at this time. No enhancing lesions are seen.
--- NOTE | 2020-07-14 15:56 | P.PN ---
Subjective Progress Note Date: 07/14/20 This a 74-year-old gentleman recently diagnosed with lung cancer, adenocarcinoma, presented to the ER with complaints of liquid diarrhea 4 days with significant amount of flatus, lightheadedness," burning throughout his body" and near syncope upon sitting up, accompanied by blank staring. Patient received second chemo treatment last Friday. Patient reports upon sitting or standing up he becomes lightheaded, unable to formulate thoughts, legs become weaker for a few minutes as if they will give out. reports patient with blank stare, becomes stiff and incontinent of urine in the solid center winder hours around 4 to 5 AM X the last three days, each episode lasting a couple minutes. Denies headaches, visual changes ,fever or chills. Denies chest pain, palpitations or shortness of breath. Denies nausea or vomiting or abdominal pain. Received fluid bolus for severe orthostatic hypotension; supine 142/83, pulse 67, sitting decreased to 95/64, pulse is 75 and upon standing decreased further to 72/62 with pulse of 75. WBC 1.3, hemoglobin 9.6, platelets 407, neutrophils 0.46, sodium 133, potassium 3, BUN 56, creatinine 1.4 to, glucose 102, lactic acid 1.4, magnesium 2.1, troponin 0.017. UA reporting 90 hyalinecast, occasional mucus. Chest x-ray reporting no acute process, right upper lobe nodular density previously reported on prior PET CT Scan, density along the anterior margin of the first right rib, too small to characterize. EKG brain sinus rhythm with PVCs 07/14/20 2 cultures in progress, tested negative for C. difficile colitis. Diarrhea persists 3 episodes this morning. Questran initiated. WBC 0.6, hemoglobin 7.9, on Zarxio. Evaluated by cardiology, oncology and neurology, with recommendations noted and appreciated. EGD reported no focal lateralizing or epileptiform activity seen. Scheduled for brain MRI today. Denies chest pain, palpitations or shortness of breath. Maintain IV fluid hydration. Significant orthostatic hypotension. Echo reporting normal LV function, EF 55- 60%. Carotid Doppler reporting no significant hemodynamic stenosis. Objective - Vital Signs Vital signs: Vital Signs Temp 97.9 F 07/14/20 08:20 Pulse 69 07/14/20 12:25 Resp 18 07/14/20 12:25 BP 111/56 07/14/20 12:25 Pulse Ox 98 07/14/20 12:25 Intake & Output 07/13/20 07/14/20 07/14/20 18:59 06:59 18:59 Intake Total 1040 480 Output Total 225 700 550 Balance -225 340 -70 Weight 73.663 kg 75.1 kg 75.1 kg Intake: Intake, IV Titration 800 Amount Sodium Chloride 0.9% 1, 800 000 ml @ 100 mls/hr IV . Q10H [facility] Rx#:[id number] Oral 240 480 Output: Urine 225 700 550 Other: Voiding Method Toilet Urinal # Voids 1 1 # Bowel Movements 1 1 1 - Exam - Exam GENERAL: Sitting up on stretcher, no acute distress HEAD: Atraumatic, normocephalic. EYES: Pupils equal round and reactive to light,conjunctiva are normal. ENT:nares patent, oropharynx clear without exudates. Oral mucosa moist NECK: Normal range of motion, no JVD LUNGS: Breath sounds diminished, HEART: Regular rate and rhythm without murmurs, rubs or gallops.S1,S2 Normal. ABDOMEN: Soft, nontender, normoactive bowel sounds. No guarding, no rebound. EXTREMITIES: Normal range of motion, softer/decreasing edema. No clubbing or cyanosis. NEUROLOGICAL: Cranial nerves II through XII grossly intact. No focal deficits. PSYCH: Normal mood, normal affect. SKIN: Warm, Dry, normal turgor, no rashes. - Labs CBC & Chem 7: 07/14/20 06:05 07/14/20 06:05 Labs: Abnormal Lab Results - Last 24 Hours (Table) 07/13/20 07/14/20 07/14/20 Range/Units 16:37 06:05 06:05 WBC 0.6 L* (3.8-10.6) k/uL RBC 2.57 L (4.30-5.90) m/uL Hgb 7.9 L D (13.0-17.5) gm/dL Hct 25.0 L (39.0-53.0) % RDW 16.4 H (11.5-15.5) % Sodium 134 L (137-145) mmol/L Potassium 3.3 L (3.5-5.1) mmol/L BUN 32 H (9-20) mg/dL Calcium 8.0 L (8.4-10.2) mg/dL Total Protein 5.2 L (6.3-8.2) g/dL Albumin 3.0 L (3.5-5.0) g/dL Microbiology - Last 24 Hours (Table) 07/13/20 20:20 Stool Culture - Preliminary Stool Assessment and Plan Assessment: Recurrent near syncope, multifactorial in a patient with lung CA, metastatic adenocarcinoma who received his chemotherapy on Friday ,secondary to dehydration, orthostatic hypotension, doubtful seizures, in a patient with history of large pericardial effusion with early cardiac tamponade requiring emergent percutaneous pericardial drain. Acute renal failure, cardiorenal Orthostatic hypotension Hypokalemia Dehydration Diarrhea Anemia Leukopenia Neutropenia COPD, chronic History of nicotine dependence, [id number] History of prostate and skin cancer Plan: Continue on current medication regime , PPI, monitoring and symptomatic treatment. Maintain IV fluid hydration.Diarrhea cultures in progress. Orthostatic vital signs every shift-continue monitoring response to IV fluid hydration, possible Midodrin or Florinef as per cardiology. Close monitoring of WBC, neutrophils, hemoglobin, electrolytes with repeat labs ordered for a.m. Prognosis guarded given multiple complex medical issues. The impression and plan of care has been dictated as directed. : I performed a history and examination of this patient, discussed the same with the dictator. I agree with the dictator's note ,documented as a scribe. Any additional findings or plans will be noted.
[2020-07-14] MEDS: CHOLESTYRAMINE (WITH SUGAR) 4 GM PACKET PO SCH (16:54)
[2020-07-14] MEDS: NYSTATIN 100,000UNIT/GM CREAM 30 GM TUBE TOPICAL SCH ×2 (16:54→20:11)
--- NOTE | 2020-07-14 18:52 | P.PN ---
Subjective Progress Note Date: 07/14/20 Patient is laying comfortably in the bed. Dizziness has improved, but still has bad diarrhea. Patient is not walking much. Patient has some episodes of confusion. Patient's was also present. Objective - Vital Signs Vital signs: Vital Signs Temp 98 F 07/14/20 16:00 Pulse 77 07/14/20 16:00 Resp 18 07/14/20 16:00 BP 117/58 07/14/20 16:00 Pulse Ox 98 07/14/20 16:00 Intake & Output 07/13/20 07/14/20 07/14/20 18:59 06:59 18:59 Intake Total 1040 600 Output Total 225 700 550 Balance -225 340 50 Weight 73.663 kg 75.1 kg 75.1 kg Intake: Intake, IV Titration 800 Amount Sodium Chloride 0.9% 1, 800 000 ml @ 100 mls/hr IV . Q10H [facility] Rx#:[id number] Oral 240 600 Output: Urine 225 700 550 Other: Voiding Method Toilet Urinal # Voids 1 1 # Bowel Movements 1 1 1 - Exam No change. - Labs CBC & Chem 7: 07/14/20 06:05 07/14/20 06:05 Labs: Abnormal Lab Results - Last 24 Hours (Table) 07/14/20 07/14/20 Range/Units 06:05 06:05 WBC 0.6 L* (3.8-10.6) k/uL RBC 2.57 L (4.30-5.90) m/uL Hgb 7.9 L D (13.0-17.5) gm/dL Hct 25.0 L (39.0-53.0) % RDW 16.4 H (11.5-15.5) % Sodium 134 L (137-145) mmol/L BUN 32 H (9-20) mg/dL Calcium 8.0 L (8.4-10.2) mg/dL Total Protein 5.2 L (6.3-8.2) g/dL Albumin 3.0 L (3.5-5.0) g/dL Microbiology - Last 24 Hours (Table) 07/13/20 20:20 Stool Culture - Preliminary Stool Assessment and Plan Assessment: * Recurrent syncopal spells, likely due to severe orthostatic hypotension. Rule out side effects of of chemotherapy. No evidence of recurrent pericardial effusion. * Metastatic cancer, unclear if primary. * Long-standing tobacco use, quit in April 2020 * Diarrhea, workup in progress. Plan: * Patient has severe orthostatic hypotension. Cardiology on board. May benefit from midodrine or Florinef. * EEG was completely normal. * MRI of the brain is normal. No metastatic disease or CVA. * Carotid Doppler showed no stenosis. Antegrade flow in both vertebral arteries. * 2-D echo showed normal left-ventricular size, mild concentric LVH, EF is 55- 60%. Mild MR. * Oncology on board. * As there is no active neurological issue, we will sign off. Please call neurology if any other neurological concerns.
[2020-07-14] MEDS: clonazePAM 0.5 MG TAB PO SCH (20:11)
[2020-07-15] MEDS: SODIUM CHLORIDE 0.9% 1,000 ML IV SCH ×3 (05:17→20:17)
[2020-07-15 06:27] LABS: Anisocytosis Slight; Basophils % (A) 1 %; Eosinophils % (A) 1 %; HCT 22.4 % (39.0-53.0); HGB 7.2 gm/dL (13.0-17.5); Hypochromasia Slight; Lymphocytes # (A) 0.6 k/uL (1.0-4.8); Lymphocytes % (A) 51 %; MCH 31.1 pg (25.0-35.0); MCHC 32.3 g/dL (31.0-37.0); MCV 96.4 fL (80.0-100.0); Macrocytosis Slight; Mean Platelet Volume 8.5; Monocytes % (A) 1 %; Neutrophils # (A) 0.5 k/uL (1.3-7.7); Neutrophils % (A) 42 %; Platelet Count 117 k/uL (150-450); RBC 2.32 m/uL (4.30-5.90); RDW 16.5 % (11.5-15.5)
[2020-07-15 06:31] LABS: WBC 1.2 k/uL (3.8-10.6)
[2020-07-15 07:05] LABS: African American GFR (CKD) >90 (>60 ml/min/1.73 sqM); Anion Gap 3 mmol/L; Blood Urea Nitrogen 24 mg/dL (9-20); Calcium 7.8 mg/dL (8.4-10.2); Carbon Dioxide 24 mmol/L (22-30); Chloride 107 mmol/L (98-107); Glucose 84 mg/dL (74-99); Non-African American GFR(CKD) 85 (>60 ml/min/1.73 sqM); Potassium 3.9 mmol/L (3.5-5.1); Sodium 134 mmol/L (137-145)
[2020-07-15] MEDS: IPRATROPIUM-ALBUTEROL 3 ML NEB INHALATION SCH ×4 (08:30→20:13)
[2020-07-15] MEDS: SYMBICORT 80-4.5 MCG INHALER INHALATION SCH ×2 (08:30→20:13)
[2020-07-15] MEDS: FILGRASTIM-SNDZ 480 MCG/0.8 ML SYRINGE SQ SCH (09:15)
[2020-07-15] MEDS: PANTOPRAZOLE 40 MG TABLET PO SCH (09:15)
[2020-07-15] MEDS: FOLIC ACID 1 MG TAB PO SCH (09:15)
[2020-07-15] MEDS: NYSTATIN 100,000UNIT/GM CREAM 30 GM TUBE TOPICAL SCH ×3 (09:16→20:17)
--- NOTE | 2020-07-15 11:15 | P.PN ---
Subjective Progress Note Date: 07/15/20 Principal diagnosis: Near-syncope, dehydration This a 74-year-old gentleman recently diagnosed with lung cancer, adenocarcinoma, presented to the ER with complaints of liquid diarrhea 4 days with significant amount of flatus, lightheadedness," burning throughout his body" and near syncope upon sitting up, accompanied by blank staring. Patient received second chemo treatment last Friday. Patient reports upon sitting or standing up he becomes lightheaded, unable to formulate thoughts, legs become weaker for a few minutes as if they will give out. reports patient with blank stare, becomes stiff and incontinent of urine in the tax processor hours around 4 to 5 AM X the last three days, each episode lasting a couple minutes. Denies headaches, visual changes ,fever or chills. Denies chest pain, palpitations or shortness of breath. Denies nausea or vomiting or abdominal pain. Received fluid bolus for severe orthostatic hypotension; supine 142/83, pulse 67, sitting decreased to 95/64, pulse is 75 and upon standing decreased further to 72/62 with pulse of 75. WBC 1.3, hemoglobin 9.6, platelets 407, neutrophils 0.46, sodium 133, potassium 3, BUN 56, creatinine 1.4 to, glucose 102, lactic acid 1.4, magnesium 2.1, troponin 0.017. UA reporting 90 hyalinecast, occasional mucus. Chest x-ray reporting no acute process, right upper lobe nodular density previously reported on prior PET CT Scan, density along the anterior margin of the first right rib, too small to characterize. EKG brain sinus rhythm with PVCs 07/15/2020 patient laying down in bed, easily arousable to verbal stimuli. He is alert and oriented 3 and is without complaints at this time of difficulty breathing or pain. He mentions that his diarrhea that he was experiencing is improving after 1 dose of Questran. He also mentions that his dizziness and feelings of flushed have resolved. He has a past medical history of recent diagnosis of cancer, COPD, deafness or substantial heart appearing, pneumonia, prostate disorder, and syncope. He is currently receiving 0.9 normal saline IV at 100 mL an hour and he is tolerating his diet without issue. Has been evaluated by cardiology, oncology, and neurology. Most recent labs are completed this morning at 0600 with a white blood cell count of 1.2, hemoglobin 7.2, hematocrit 22.4, platelet count 117. Chemistry reveals sodium of 134, potassium 3.9, chloride 107, carbon dioxide 24, BUN 24, creatinine of 0.89. Most recent set of vitals were completed this morning at 0 750 he is afebrile with a temperature of 98.5 orally, pulse rate is sinus rhythm 85, respiratory rate is 17, blood pressure 115/48, oxygen saturation 97% on room air. Objective - Vital Signs Vital signs: Vital Signs Temp 98.5 F 07/15/20 07:50 Pulse 78 07/15/20 08:42 Resp 17 07/15/20 07:50 BP 115/48 07/15/20 07:50 Pulse Ox 97 07/15/20 08:31 Intake & Output 07/14/20 07/15/20 07/15/20 18:59 06:59 18:59 Intake Total 600 600 Output Total 550 150 Balance 50 450 Weight 75.1 kg 76.2 kg Intake: Oral 600 600 Output: Urine 550 150 Other: Voiding Method Toilet Toilet Urinal Urinal # Voids 1 1 # Bowel Movements 1 - Exam GENERAL: Well-appearing, well-nourished and in no acute distress. HEAD: Atraumatic, normocephalic. EYES: Pupils equal round and reactive to light, extraocular movements intact, sclera anicteric, conjunctiva are normal. ENT:nares patent, oropharynx clear without exudates. Moist mucous membranes. NECK: Normal range of motion, supple without lymphadenopathy or JVD, no thyromegaly LUNGS: Breath sounds clear but diminished to auscultation bilaterally. No wheezes rales or rhonchi. HEART: Regular rate and rhythm without murmurs, rubs or gallops.S1S2 Normal ABDOMEN: Soft, nontender, normoactive bowel sounds. No guarding, no rebound. No masses appreciated. EXTREMITIES: Normal range of motion, no pitting or edema. No clubbing or cyanosis. NEUROLOGICAL: Cranial nerves II through XII grossly intact. Normal speech, normal gait. PSYCH: Normal mood, normal affect. SKIN: Warm, Dry, normal turgor, no rashes or lesions noted. - Labs CBC & Chem 7: 07/15/20 05:54 07/15/20 05:54 Labs: Abnormal Lab Results - Last 24 Hours (Table) 08/07/15/20 07/15/20 Range/Units 06:05 05:54 05:54 WBC 0.6 L* 1.2 L* (3.8-10.6) k/uL RBC 2.32 L (4.30-5.90) m/uL Hgb 7.2 L (13.0-17.5) gm/dL Hct 22.4 L (39.0-53.0) % RDW 16.5 H (11.5-15.5) % Plt Count 117 L (150-450) k/uL Neutrophils # 0.5 L (1.3-7.7) k/uL Lymphocytes # 0.6 L (1.0-4.8) k/uL Sodium 134 L (137-145) mmol/L BUN 24 H (9-20) mg/dL Calcium 7.8 L (8.4-10.2) mg/dL Microbiology - Last 24 Hours (Table) 07/13/20 17:14 Blood Culture - Preliminary Blood No Growth after 24 hours 07/13/20 17:06 Blood Culture - Preliminary Blood No Growth after 24 hours Assessment and Plan (1) History of nicotine dependence Current Visit: Yes Status: Acute Code(s): Z87.891 - PERSONAL HISTORY OF NICOTINE DEPENDENCE SNOMED Code(s): 932816823 (2) Chronic obstructive pulmonary disease (COPD) Current Visit: Yes Status: Acute Code(s): J44.9 - CHRONIC OBSTRUCTIVE PULMONARY DISEASE, UNSPECIFIED SNOMED Code(s): 03576776 (3) Dehydration Current Visit: Yes Status: Acute Code(s): E86.0 - DEHYDRATION SNOMED Code(s): 57446616 (4) Diarrhea Current Visit: Yes Status: Acute Code(s): R19.7 - DIARRHEA, UNSPECIFIED SNOMED Code(s): 97772891 (5) Hypokalemia Current Visit: Yes Status: Acute Code(s): E87.6 - HYPOKALEMIA SNOMED Code(s): 70202773 (6) Neutropenia Current Visit: Yes Status: Acute Code(s): D70.9 - NEUTROPENIA, UNSPECIFIED SNOMED Code(s): 782124291 (7) Orthostatic hypotension Current Visit: Yes Status: Acute Code(s): I95.1 - ORTHOSTATIC HYPOTENSION SNOMED Code(s): 65888511 (8) Unresponsive episode Current Visit: Yes Status: Acute Code(s): R41.89 - OTH SYMPTOMS AND SIGNS W COGNITIVE FUNCTIONS AND AWARENESS SNOMED Code(s): 059561543 (9) History of prostate cancer Current Visit: No Status: Acute Code(s): Z85.46 - PERSONAL HISTORY OF MALIGNANT NEOPLASM OF PROSTATE SNOMED Code(s): 113565011 Plan: 1. Continue with gentle rehydration with IV fluids IV fluids. 2. Will continue on current medication regimen. 3. Continue PPI coverage. 4. Increase activity and room, out of bed as much as possible. 5. Orthostatic vital signs per each shift. 6. As per cardiology may possibly use Florinef or midodrine for low blood pressures. 7. Continue monitoring of WBCs, neutrophils, hemoglobin, electrolytes. 8. Continue to follow closely and will reassess again tomorrow. Time with Patient: Greater than 30
[2020-07-15] MEDS: CHOLESTYRAMINE (WITH SUGAR) 4 GM PACKET PO SCH ×2 (11:41→17:59)
[2020-07-15] MEDS: clonazePAM 0.5 MG TAB PO SCH (20:17)
--- NOTE | 2020-07-15 20:56 | P.PN ---
Subjective Progress Note Date: 07/15/20 Orthostatic hypotension History of present illness: HISTORY OF PRESENTING ILLNESS This is a pleasant 74-year-old male past medical history significant for COPD, prostate issues, recent workup in the last 3 months revealing large pericardial effusion which was drained and had a malignant cells as well as lymphadenopathy which was malignant of unknown primary. He has been seen oncology and has undergone 2 doses of chemotherapy. At the time of his prior admission back in April he was found to have a large pericardial effusion which was drained, no pericardial window was performed per patient. Since that time he has been doing fairly well. He denies any chest pain or pressure. Denies shortness of breath other than what he attributes to his COPD. He did undergo repeat chemotherapy 2 weeks ago and admits since that time he has not felt well. He admits to constant diarrhea and had no appetite up until last few days. He is also been experiencing severe orthostatic hypotension with flushed feeling and lightheadedness often when he sits up or stands up. He admits this has caused him to pass out and fallen on occasion. He also has had prolonged periods of confusion after these episodes. He admits prior to this he did not have issues. Denies any lightheadedness other than when he is standing up from a seated position. He has been on Lasix 40 mg twice a day at home. 07/15/2020 Patient admits he feels much improved. He is able to stand up without any further lightheadedness. Denies any chest pain or pressure. No shortness breath. REVIEW OF SYSTEMS At the time of my exam: CONSTITUTIONAL: Denies fever or chills. CARDIOVASCULAR: Denies chest pain, no shortness of breath, no orthopnea, PND or palpitations. RESPIRATORY: Denies cough. GASTROINTESTINAL: Denies abdominal pain, +diarrhea, no constipation, nausea or vomiting. MUSCULOSKELETAL: Denies myalgias. NEUROLOGIC: Denies numbness, tingling or weakness. ENDOCRINE: Denies fatigue, weight change, polydipsia or polyurina. GENITOURINARY: Denies burning, hematuria or urgency with micturation. HEMATOLOGIC: Denies history of anemia or bleeding. PHYSICAL EXAMINATION Vital signs reviewed CONSTITUTIONAL: No apparent distress. HEENT: Head is normocephalic. Pupils are equal, round. Sclerae anicteric. Mucous membranes of the mouth are moist. No JVD. No carotid bruit. CHEST EXAMINATION: Lungs are clear to auscultation. No chest wall tenderness is noted on palpation or with deep breathing. HEART EXAMINATION: Regular rate and rhythm. S1, S2 heard. No murmurs, gallops or rub. ABDOMEN: Soft, nontender. Positive bowel sounds. EXTREMITIES: 2+ peripheral pulses, no lower extremity edema and no calf tenderness. NEUROLOGIC EXAMINATION: Patient is awake, alert and oriented x3. ASSESSMENT 1. Orthostatic hypotension, likely exacerbated by anemia, dehydration. No significant recurrence of pericardial effusion on echo 2. 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 No recurrence on echo 3. Anemia and leukopenia from chemotherapy 4. Metastatic cancer with lymphadenopathy and malignant pericardial effusion, per patient unknown primary. Undergoing chemotherapy. 5. Syncope which appears related to severe orthostatic hypotension. Always occurs with standing from a seated position PLAN Repeat echo shows no recurrence of pericardial effusion and normal ejection fraction. Orthostatic hypotension appears to be improved. No further workup per cardiology and we will sign off. Please call with questions. Objective - Vital Signs Vital signs: Vital Signs Temp 98.6 F 07/15/20 19:30 Pulse 80 07/15/20 20:26 Resp 18 07/15/20 19:30 BP 110/47 07/15/20 19:30 Pulse Ox 97 07/15/20 19:30 Intake & Output 07/15/20 07/15/20 07/16/20 06:59 18:59 06:59 Intake Total 2920 222 Output Total 300 Balance 2620 222 Weight 76.2 kg Intake: Intake, IV Titration 400 Amount Sodium Chloride 0.9% 1, 400 000 ml @ 100 mls/hr IV . Q10H [facility] Rx#:[id number] Oral 2520 222 Output: Urine 300 Other: Voiding Method Toilet Urinal Urinal Urinal # Voids 3 # Bowel Movements 2 - Labs CBC & Chem 7: 07/15/20 05:54 07/15/20 05:54 Labs: Abnormal Lab Results - Last 24 Hours (Table) 07/15/20 07/15/20 Range/Units 05:54 05:54 WBC 1.2 L* (3.8-10.6) k/uL RBC 2.32 L (4.30-5.90) m/uL Hgb 7.2 L (13.0-17.5) gm/dL Hct 22.4 L (39.0-53.0) % RDW 16.5 H (11.5-15.5) % Plt Count 117 L (150-450) k/uL Neutrophils # 0.5 L (1.3-7.7) k/uL Lymphocytes # 0.6 L (1.0-4.8) k/uL Sodium 134 L (137-145) mmol/L BUN 24 H (9-20) mg/dL Calcium 7.8 L (8.4-10.2) mg/dL Microbiology - Last 24 Hours (Table) 07/13/20 17:06 Blood Culture - Preliminary Blood No Growth after 48 hours 07/13/20 17:14 Blood Culture - Preliminary Blood No Growth after 48 hours
[2020-07-16 06:18] LABS: Anisocytosis Slight; HCT 21.9 % (39.0-53.0); Hypochromasia Slight; MCH 31.2 pg (25.0-35.0); MCHC 31.9 g/dL (31.0-37.0); MCV 97.6 fL (80.0-100.0); Macrocytosis Slight; Mean Platelet Volume 8.7; RBC 2.24 m/uL (4.30-5.90); RDW 16.4 % (11.5-15.5); WBC 1.5 k/uL (3.8-10.6)
[2020-07-16 06:49] LABS: ALT 13 U/L (4-49); AST 29 U/L (17-59); African American GFR (CKD) >90 (>60 ml/min/1.73 sqM); Albumin 2.7 g/dL (3.5-5.0); Alkaline Phosphatase 57 U/L (38-126); Anion Gap 5 mmol/L; Blood Urea Nitrogen 19 mg/dL (9-20); Calcium 7.7 mg/dL (8.4-10.2); Carbon Dioxide 24 mmol/L (22-30); Chloride 107 mmol/L (98-107); Glucose 79 mg/dL (74-99); Magnesium 1.7 mg/dL (1.6-2.3); Non-African American GFR(CKD) 86 (>60 ml/min/1.73 sqM); Potassium 4.1 mmol/L (3.5-5.1); Sodium 136 mmol/L (137-145); Total Bilirubin 0.3 mg/dL (0.2-1.3); Total Protein 4.8 g/dL (6.3-8.2)
[2020-07-16 07:23] LABS: Band Neutrophils % 2 %; Eosinophils # (M) 0.03 k/uL (0-0.7); Lymphocytes # (M) 0.86 k/uL (1.0-4.8); Neutrophils % (M) 39 %; Nucleated Red Blood Cells 0 /100 WBC (0-0); Total Cells Counted 100
[2020-07-16 07:24] LABS: Poikilocytosis (M) Present
[2020-07-16 07:26] LABS: Platelet Count 85 k/uL (150-450); RBC Fragments Present
[2020-07-16] MEDS: IPRATROPIUM-ALBUTEROL 3 ML NEB INHALATION SCH ×4 (07:51→19:33)
[2020-07-16] MEDS: SYMBICORT 80-4.5 MCG INHALER INHALATION SCH ×2 (07:51→19:33)
[2020-07-16] MEDS: FOLIC ACID 1 MG TAB PO SCH (08:11)
[2020-07-16] MEDS: NYSTATIN 100,000UNIT/GM CREAM 30 GM TUBE TOPICAL SCH ×3 (08:12→20:03)
[2020-07-16] MEDS: PANTOPRAZOLE 40 MG TABLET PO SCH (08:12)
[2020-07-16] MEDS: FILGRASTIM-SNDZ 480 MCG/0.8 ML SYRINGE SQ SCH (08:12)
[2020-07-16] MEDS: SODIUM CHLORIDE 0.9% 1,000 ML IV SCH ×2 (08:12→17:36)
--- NOTE | 2020-07-16 11:45 | P.PN ---
Subjective Progress Note Date: 07/16/20 Principal diagnosis: Near-syncope, dehydration This a 74-year-old gentleman recently diagnosed with lung cancer, adenocarcinoma, presented to the ER with complaints of liquid diarrhea 4 days with significant amount of flatus, lightheadedness," burning throughout his body" and near syncope upon sitting up, accompanied by blank staring. Patient received second chemo treatment last Friday. Patient reports upon sitting or standing up he becomes lightheaded, unable to formulate thoughts, legs become weaker for a few minutes as if they will give out. 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 Denies headaches, visual changes ,fever or chills. Denies chest pain, palpitations or shortness of breath. Denies nausea or vomiting or abdominal pain. Received fluid bolus for severe orthostatic hypotension; supine 142/83, pulse 67, sitting decreased to 95/64, pulse is 75 and upon standing decreased further to 72/62 with pulse of 75. WBC 1.3, hemoglobin 9.6, platelets 407, neutrophils 0.46, sodium 133, potassium 3, BUN 56, creatinine 1.4 to, glucose 102, lactic acid 1.4, magnesium 2.1, troponin 0.017. UA reporting 90 hyalinecast, occasional mucus. Chest x-ray reporting no acute process, right upper lobe nodular density previously reported on prior PET CT Scan, density along the anterior margin of the first right rib, too small to characterize. EKG brain sinus rhythm with PVCs 07/15/2020 patient laying down in bed, easily arousable to verbal stimuli. He is alert and oriented 3 and is without complaints at this time of difficulty breathing or pain. He mentions that his diarrhea that he was experiencing is improving after 1 dose of Questran. He also mentions that his dizziness and feelings of flushed have resolved. He has a past medical history of recent diagnosis of cancer, COPD, deafness or substantial heart appearing, pneumonia, prostate disorder, and syncope. He is currently receiving 0.9 normal saline IV at 100 mL an hour and he is tolerating his diet without issue. Has been evaluated by cardiology, oncology, and neurology. Most recent labs are completed this morning at 0600 with a white blood cell count of 1.2, hemoglobin 7.2, hematocrit 22.4, platelet count 117. Chemistry reveals sodium of 134, potassium 3.9, chloride 107, carbon dioxide 24, BUN 24, creatinine of 0.89. Most recent set of vitals were completed this morning at 0 750 he is afebrile with a temperature of 98.5 orally, pulse rate is sinus rhythm 85, respiratory rate is 17, blood pressure 115/48, oxygen saturation 97% on room air. 08 and 02/11/2020 patient sitting up in bed resting comfortably with no complaints of pain or difficulty breathing at this time. He mentions that the diarrhea is resolving and that his stools are more firm. Patient states that he has been up sitting in the recliner or the couch in the room and denies periods of dizziness with activity. Most recent set of vitals are this morning at 8 AM afebrile 97.9 oral, pulse rate of 85, respiratory rate of 18, blood pressure 128/62 oxygen saturation is 97% on room air. This morning's lab work WBC 1.5, hemoglobin 7.0, hematocrit of 21.9, platelet count of 85. Chemistry reveals sodium 136, potassium 4.1, P1 of 19, creatinine of 0.86, calcium is 7.7, magnesium 1.7. Objective - Vital Signs Vital signs: Vital Signs Temp 97.9 F 07/16/20 08:00 Pulse 88 07/16/20 08:03 Resp 18 07/16/20 08:00 BP 128/62 07/16/20 08:00 Pulse Ox 97 07/16/20 08:00 Intake & Output 07/15/20 07/16/20 07/16/20 18:59 06:59 18:59 Intake Total 2920 222 118 Output Total 300 450 Balance 2620 -228 118 Weight 81.7 kg Intake: Intake, IV Titration 400 Amount Sodium Chloride 0.9% 1, 400 000 ml @ 100 mls/hr IV . Q10H [facility] Rx#:[id number] Oral 2520 222 118 Output: Urine 300 450 Other: Voiding Method Urinal Urinal Urinal # Voids 3 1 1 # Bowel Movements 2 - Exam GENERAL: Well-appearing, well-nourished and in no acute distress. HEAD: Atraumatic, normocephalic. EYES: Pupils equal round and reactive to light, extraocular movements intact, sclera anicteric, conjunctiva are normal. ENT:nares patent, oropharynx clear without exudates. Moist mucous membranes. NECK: Normal range of motion, supple without lymphadenopathy or JVD, no thyromegaly LUNGS: Breath sounds clear but diminished to auscultation bilaterally. No wheezes rales or rhonchi. HEART: Regular rate and rhythm without murmurs, rubs or gallops.S1S2 Normal ABDOMEN: Soft, nontender, normoactive bowel sounds. No guarding, no rebound. No masses appreciated. EXTREMITIES: Normal range of motion, no pitting or edema. No clubbing or cyanosis. NEUROLOGICAL: Cranial nerves II through XII grossly intact. Normal speech, normal gait. PSYCH: Normal mood, normal affect. SKIN: Warm, Dry, normal turgor, no rashes or lesions noted. - Labs CBC & Chem 7: 07/16/20 05:49 07/16/20 05:49 Labs: Abnormal Lab Results - Last 24 Hours (Table) 07/16/20 07/16/20 Range/Units 05:49 05:49 WBC 1.5 L (3.8-10.6) k/uL RBC 2.24 L (4.30-5.90) m/uL Hgb 7.0 L (13.0-17.5) gm/dL Hct 21.9 L (39.0-53.0) % RDW 16.4 H (11.5-15.5) % Plt Count 85 L (150-450) k/uL Neutrophils # (Manual) 0.60 L (1.3-7.7) k/uL Lymphocytes # (Manual) 0.86 L (1.0-4.8) k/uL Sodium 136 L (137-145) mmol/L Calcium 7.7 L (8.4-10.2) mg/dL Total Protein 4.8 L (6.3-8.2) g/dL Albumin 2.7 L (3.5-5.0) g/dL Microbiology - Last 24 Hours (Table) 07/13/20 20:20 Stool Culture - Preliminary Stool 07/13/20 17:06 Blood Culture - Preliminary Blood No Growth after 48 hours 07/13/20 17:14 Blood Culture - Preliminary Blood No Growth after 48 hours Assessment and Plan (1) Orthostatic hypotension Current Visit: Yes Status: Acute Code(s): I95.1 - ORTHOSTATIC HYPOTENSION SNOMED Code(s): 89012219 (2) Dehydration Current Visit: Yes Status: Acute Code(s): E86.0 - DEHYDRATION SNOMED Code(s): 07632020 (3) Diarrhea Current Visit: Yes Status: Acute Code(s): R19.7 - DIARRHEA, UNSPECIFIED SNOMED Code(s): 31365945 (4) Neutropenia Current Visit: Yes Status: Acute Code(s): D70.9 - NEUTROPENIA, UNSPECIFIED SNOMED Code(s): 961451398 (5) Anemia Current Visit: Yes Status: Acute Code(s): D64.9 - ANEMIA, UNSPECIFIED SNOMED Code(s): 711086414 (6) Hypokalemia Current Visit: Yes Status: Acute Code(s): E87.6 - HYPOKALEMIA SNOMED Code(s): 40378987 (7) Unresponsive episode Current Visit: Yes Status: Acute Code(s): R41.89 - OTH SYMPTOMS AND SIGNS W COGNITIVE FUNCTIONS AND AWARENESS SNOMED Code(s): 511306625 (8) Chronic obstructive pulmonary disease (COPD) Current Visit: Yes Status: Acute Code(s): J44.9 - CHRONIC OBSTRUCTIVE PULMONARY DISEASE, UNSPECIFIED SNOMED Code(s): 78692175 (9) History of prostate cancer Current Visit: No Status: Acute Code(s): Z85.46 - PERSONAL HISTORY OF MALIGNANT NEOPLASM OF PROSTATE SNOMED Code(s): 267442958 (10) History of nicotine dependence Current Visit: Yes Status: Acute Code(s): Z87.891 - PERSONAL HISTORY OF NICOTINE DEPENDENCE SNOMED Code(s): 427749403 Plan: 1. Continue with gentle rehydration with IV fluids IV fluids. 2. Will continue on current medication regimen. 3. Continue PPI coverage. 4. Increase activity and room, out of bed as much as possible. 5. Orthostatic vital signs per each shift. 6. As per cardiology may possibly use Florinef or midodrine for low blood pressures. 7. Continue monitoring vital signs and lab work. 8. Continue to follow closely and will reassess again tomorrow. Time with Patient: Greater than 30
[2020-07-16] MEDS: CHOLESTYRAMINE (WITH SUGAR) 4 GM PACKET PO SCH ×2 (12:42→18:01)
--- NOTE | 2020-07-16 20:02 | XR ---
EXAMINATION TYPE: XR chest 1V portable DATE OF EXAM: 07/16/2020 COMPARISON: 07/13/2020 HISTORY: Short of breath TECHNIQUE: FINDINGS: There is no heart failure nor confluent pneumonic infiltrate. Costophrenic angles are clear . Thoracic aorta is atheromatous. There are chest leads. Bony thorax is intact. IMPRESSION: No active cardiopulmonary disease. Normal heart. No change.
[2020-07-16] MEDS: clonazePAM 0.5 MG TAB PO SCH (20:04)
[2020-07-17] MEDS: SODIUM CHLORIDE 0.9% 1,000 ML IV SCH ×2 (06:26→14:00)
[2020-07-17 07:00] LABS: Anisocytosis Slight; HCT 21.8 % (39.0-53.0); Hypochromasia Slight; MCH 30.5 pg (25.0-35.0); MCHC 31.2 g/dL (31.0-37.0); MCV 97.9 fL (80.0-100.0); Macrocytosis Slight; Mean Platelet Volume 9.3; RBC 2.23 m/uL (4.30-5.90); RDW 16.6 % (11.5-15.5); WBC 1.5 k/uL (3.8-10.6)
[2020-07-17 07:02] LABS: HGB 6.8 gm/dL (13.0-17.5); Platelet Count 54 k/uL (150-450)
[2020-07-17] MEDS: SYMBICORT 80-4.5 MCG INHALER INHALATION SCH ×2 (08:04→19:38)
[2020-07-17] MEDS: IPRATROPIUM-ALBUTEROL 3 ML NEB INHALATION SCH ×4 (08:04→19:38)
[2020-07-17 08:48] LABS: Lymphocytes # (M) 0.72 k/uL (1.0-4.8); Monocytes # (M) 0.09 k/uL (0-1.0); Neutrophils # (M) 0.69 k/uL (1.3-7.7); Neutrophils % (M) 46 %; Nucleated Red Blood Cells 0 /100 WBC (0-0); Total Cells Counted 100
[2020-07-17 08:50] LABS: RBC Fragments Present
[2020-07-17 08:52] LABS: Ovalocytes Present
[2020-07-17 08:53] LABS: Tear Drop Cells Present
[2020-07-17] MEDS: FILGRASTIM-SNDZ 480 MCG/0.8 ML SYRINGE SQ SCH (09:22)
[2020-07-17] MEDS: FOLIC ACID 1 MG TAB PO SCH (09:22)
[2020-07-17] MEDS: NYSTATIN 100,000UNIT/GM CREAM 30 GM TUBE TOPICAL SCH ×3 (09:22→20:01)
[2020-07-17] MEDS: PANTOPRAZOLE 40 MG TABLET PO SCH (09:22)
[2020-07-17] MEDS: CHOLESTYRAMINE (WITH SUGAR) 4 GM PACKET PO SCH ×2 (09:23→17:05)
--- NOTE | 2020-07-17 11:38 | P.PN ---
Subjective Progress Note Date: 07/17/20 This a 74-year-old gentleman recently diagnosed with lung cancer, adenocarcinoma, presented to the ER with complaints of liquid diarrhea 4 days with significant amount of flatus, lightheadedness," burning throughout his body" and near syncope upon sitting up, accompanied by blank staring. Patient received second chemo treatment last Friday. Patient reports upon sitting or standing up he becomes lightheaded, unable to formulate thoughts, legs become weaker for a few minutes as if they will give out. 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 Denies headaches, visual changes ,fever or chills. Denies chest pain, palpitations or shortness of breath. Denies nausea or vomiting or abdominal pain. Received fluid bolus for severe orthostatic hypotension; supine 142/83, pulse 67, sitting decreased to 95/64, pulse is 75 and upon standing decreased further to 72/62 with pulse of 75. WBC 1.3, hemoglobin 9.6, platelets 407, neutrophils 0.46, sodium 133, potassium 3, BUN 56, creatinine 1.4 to, glucose 102, lactic acid 1.4, magnesium 2.1, troponin 0.017. UA reporting 90 hyalinecast, occasional mucus. Chest x-ray reporting no acute process, right upper lobe nodular density previously reported on prior PET CT Scan, density along the anterior margin of the first right rib, too small to characterize. EKG brain sinus rhythm with PVCs 07/14/20 2 cultures in progress, tested negative for C. difficile colitis. Diarrhea persists 3 episodes this morning. Questran initiated. WBC 0.6, hemoglobin 7.9, on Zarxio. Evaluated by cardiology, oncology and neurology, with recommendations noted and appreciated. EGD reported no focal lateralizing or epileptiform activity seen. Scheduled for brain MRI today. Denies chest pain, palpitations or shortness of breath. Maintain IV fluid hydration. Significant orthostatic hypotension. Echo reporting normal LV function, EF 55- 60%,no reoccurrence of pericardial effusion. Carotid Doppler reporting no significant hemodynamic stenosis. 07/17/2020 orthostatic hypotension improving, Diarrhea improving. Denies any lightheadedness dizziness or focal deficits. Denies chest pain, palpitations or shortness of breath. Afebrile, WBC up to 1.5, hemoglobin 6.8, platelets 54. Brain MRA reported normal. Chest x-ray from yesterday reportedly nonacute. Telemetry sinus rhythm. Denies chest pain, palpitations. Objective - Vital Signs Vital signs: Vital Signs Temp 98.1 F 07/17/20 08:00 Pulse 80 07/17/20 08:21 Resp 18 07/17/20 08:00 BP 117/57 07/17/20 08:00 Pulse Ox 96 07/17/20 08:00 Intake & Output 07/16/20 07/17/20 07/17/20 18:59 06:59 18:59 Intake Total 3478 840 Output Total 1300 1330 Balance 2178 -1330 840 Weight 81 kg Intake: Intake, IV Titration 1200 Amount Sodium Chloride 0.9% 1, 1200 000 ml @ 100 mls/hr IV . Q10H [facility] Rx#:[id number] Oral 2278 840 Output: Urine 1300 1330 Other: Voiding Method Urinal Urinal # Voids 4 1 400 - Exam - Exam GENERAL: Sitting up in bed, no acute distress HEAD: Atraumatic, normocephalic. EYES: Pupils equal round and reactive to light,conjunctiva are normal. ENT:nares patent, oropharynx clear without exudates. Oral mucosa moist NECK: Normal range of motion, no JVD LUNGS: Breath sounds diminished, HEART: Regular rate and rhythm without murmurs, rubs or gallops.S1,S2 Normal. ABDOMEN: Soft, nontender, normoactive bowel sounds. No guarding, no rebound. EXTREMITIES: Normal range of motion, softer/decreasing edema. No clubbing or cyanosis. NEUROLOGICAL: Cranial nerves II through XII grossly intact. No focal deficits. PSYCH: Normal mood, normal affect. SKIN: Warm, Dry, normal turgor, no rashes. - Labs CBC & Chem 7: 07/17/20 06:30 07/16/20 05:49 Labs: Abnormal Lab Results - Last 24 Hours (Table) 07/17/20 07/17/20 Range/Units 06:30 08:40 WBC 1.5 L (3.8-10.6) k/uL RBC 2.23 L (4.30-5.90) m/uL Hgb 6.8 L* (13.0-17.5) gm/dL Hct 21.8 L (39.0-53.0) % RDW 16.6 H (11.5-15.5) % Plt Count 54 L (150-450) k/uL Neutrophils # (Manual) 0.69 L (1.3-7.7) k/uL Lymphocytes # (Manual) 0.72 L (1.0-4.8) k/uL Crossmatch See Detail Microbiology - Last 24 Hours (Table) 07/13/20 20:20 Stool Culture - Final Stool 07/13/20 17:14 Blood Culture - Preliminary Blood No Growth after 72 hours 07/13/20 17:06 Blood Culture - Preliminary Blood No Growth after 72 hours Assessment and Plan Assessment: Recurrent near syncope, multifactorial in a patient with lung CA, metastatic adenocarcinoma who received his chemotherapy on Friday ,secondary to dehydration, anemia, orthostatic hypotension, in a patient with history of large pericardial effusion with early cardiac tamponade requiring emergent percutaneos training. No reoccurrence of pericardial effusion as per repeat echo. MRI of brain reported normal. EEG reported normal, no seizure activity. Acute renal failure, Orthostatic hypotension, improving Hypokalemia Dehydration Diarrhea Anemia secondary to chemotherapy Leukopenia secondary to chemotherapy Neutropenia secondary to chemotherapy COPD, chronic History of nicotine dependence, [id number] History of prostate and skin cancer Plan: Continue on current medication regime , PPI, monitoring and symptomatic treatment. Transfuse 1 unit of packed RBCs, continue on zarxio. Close monitoring of WBC, hemoglobin, neutrophils, platelets. Discharge planning in progress pending clearance from oncology. The impression and plan of care has been dictated as directed. : I performed a history and examination of this patient, discussed the same with the dictator. I agree with the dictator's note ,documented as a scribe. Any additional findings or plans will be noted.
--- NOTE | 2020-07-17 13:29 | P.PN ---
Subjective Progress Note Date: 07/17/20 Principal diagnosis: dehydration, pancytopenia secondary to chemotherapy In follow-up today patient states feeling pretty decently, still is short of breath with some exertion, his diarrhea is resolved, he had a formed stool last night, no bowel movement today, he has not had any dizziness, near-syncope episodes or feeling like that since after admission. No fevers, nausea, v omiting, tolerating oral intake. Objective - Vital Signs Vital signs: Vital Signs Temp 97.1 F L 07/17/20 12:02 Pulse 72 07/17/20 12:04 Resp 16 07/17/20 12:02 BP 126/59 07/17/20 12:02 Pulse Ox 96 07/17/20 12:02 Intake & Output 07/16/20 07/17/20 07/17/20 18:59 06:59 18:59 Intake Total 3478 840 Output Total 1300 1330 Balance 2178 -1330 840 Weight 81 kg Intake: Intake, IV Titration 1200 Amount Sodium Chloride 0.9% 1, 1200 000 ml @ 100 mls/hr IV . Q10H [facility] Rx#:[id number] Oral 2278 840 Blood Product 0 Rc As-1 Unit 0 [id number] Output: Urine 1300 1330 Other: Voiding Method Urinal Urinal # Voids 4 1 400 - Constitutional General appearance: Present: average body habitus, cooperative, no acute distress - EENT Eyes: Present: anicteric sclerae, EOMI ENT: Present: hearing grossly normal - Respiratory Respiratory: bilateral: CTA - Cardiovascular Heart sounds: normal: S1, S2 - Gastrointestinal General gastrointestinal: Present: normal bowel sounds, soft - Neurologic Neurologic: Present: CNII-XII intact - Musculoskeletal Musculoskeletal: Present: strength equal bilaterally - Psychiatric Psychiatric: Present: A&O x's 3, appropriate affect, intact judgment & insight - Labs CBC & Chem 7: 07/17/20 06:30 07/16/20 05:49 Labs: Abnormal Lab Results - Last 24 Hours (Table) 07/17/20 07/17/20 Range/Units 06:30 08:40 WBC 1.5 L (3.8-10.6) k/uL RBC 2.23 L (4.30-5.90) m/uL Hgb 6.8 L* (13.0-17.5) gm/dL Hct 21.8 L (39.0-53.0) % RDW 16.6 H (11.5-15.5) % Plt Count 54 L (150-450) k/uL Neutrophils # (Manual) 0.69 L (1.3-7.7) k/uL Lymphocytes # (Manual) 0.72 L (1.0-4.8) k/uL Crossmatch See Detail Microbiology - Last 24 Hours (Table) 07/13/20 20:20 Stool Culture - Final Stool 07/13/20 17:14 Blood Culture - Preliminary Blood No Growth after 72 hours 07/13/20 17:06 Blood Culture - Preliminary Blood No Growth after 72 hours - Imaging and Cardiology Chest x-ray: report reviewed CT Scan - head: report reviewed MRI - head: report reviewed Assessment and Plan (1) Diarrhea Narrative/Plan: No infection found in the stool. Patient has utilize Questran with improvement, formed bowel movement last night, no bowel movement today. Patient is going to hold Questran for right now. He is not having any abdominal pain or cramping. He is able to tolerate oral intake and fluids pretty well now. Current Visit: Yes Status: Acute Priority: High Code(s): R19.7 - DIARRHEA, UNSPECIFIED SNOMED Code(s): 83948851 (2) Pancytopenia due to antineoplastic chemotherapy Narrative/Plan: Patient's receiving a unit of blood for a hemoglobin of 6.8. Transfuse for hemoglobin less than 7 less patient is severely symptomatic Patient continues on G-CSF for a WBC of 1.5. Platelet count 54,000 today. Transfuse for a platelet count less than 10,000 or bleeding. Platelets of 50,000 or higher patient is okay for DVT prophylaxis. Current Visit: Yes Status: Acute Priority: High Code(s): D61.810 - ANTINEOPLASTIC CHEMOTHERAPY INDUCED PANCYTOPENIA; T45.1X5A - ADVERSE EFFECT OF ANTINEOPLASTIC AND IMMUNOSUP DRUGS, INIT SNOMED Code(s): 106869057054298 (3) Orthostatic hypotension Narrative/Plan: CT of the brain and MRI of the brain showed no underlying neurological cause for his symptoms. Cardiology has seen the patient. Patient is not having any incidences of dizziness or feeling flushed from head to toe when he changes positions since admission and being rehydrated. Current Visit: Yes Status: Acute Priority: High Code(s): I95.1 - ORTHOSTATIC HYPOTENSION SNOMED Code(s): 03682501 (4) Adenocarcinoma Narrative/Plan: Dr. Trejo is going to hold the chemotherapy portion of patients treatment. Patient has had significant side effects after just 2 cycles. Plan is to continue with immunotherapy. Treatment follow-up imaging is typically done after the third or fourth cycle when chemotherapy is involved, typically a few more cycles when it is immunotherapy alone. Patient's symptoms will be monitored closely. Imaging is appropriate. Patient verbalized understanding the plan. Treatment is not due for another week and a half. Current Visit: Yes Status: Chronic Priority: High Code(s): C80.1 - MALIGNANT (PRIMARY) NEOPLASM, UNSPECIFIED SNOMED Code(s): 128482518 Plan: Patient is having orthostatic blood pressures measured. Urged patient, as long as he is no longer experiencing dizziness, to get moving and to call for assistance before doing so.
[2020-07-17] MEDS ORDERED: FUROSEMIDE 10 MG/ML 2 ML VIAL IV ONE (13:42)
[2020-07-17] MEDS: clonazePAM 0.5 MG TAB PO SCH (21:30)
[2020-07-18 07:06] LABS: Anisocytosis Slight; HGB 7.7 gm/dL (13.0-17.5); Hypochromasia Slight; MCH 30.8 pg (25.0-35.0); MCV 96.3 fL (80.0-100.0); Macrocytosis Slight; Mean Platelet Volume 8.9; Platelet Count 37 k/uL (150-450); RDW 16.6 % (11.5-15.5); WBC 1.8 k/uL (3.8-10.6)
[2020-07-18] MEDS: SYMBICORT 80-4.5 MCG INHALER INHALATION SCH (07:14)
[2020-07-18] MEDS: IPRATROPIUM-ALBUTEROL 3 ML NEB INHALATION SCH ×2 (07:14→11:34)
[2020-07-18 08:52] VITALS: BP 124/63; RESP 16; TEMP 98.2
[2020-07-18] MEDS: NYSTATIN 100,000UNIT/GM CREAM 30 GM TUBE TOPICAL SCH (08:53)
[2020-07-18] MEDS: FILGRASTIM-SNDZ 480 MCG/0.8 ML SYRINGE SQ SCH (08:53)
[2020-07-18] MEDS: FOLIC ACID 1 MG TAB PO SCH (08:53)
[2020-07-18] MEDS: PANTOPRAZOLE 40 MG TABLET PO SCH (08:53)
[2020-07-18] MEDS: CHOLESTYRAMINE (WITH SUGAR) 4 GM PACKET PO SCH (08:57)
[2020-07-18 08:59] LABS: Lymphocytes # (M) 0.86 k/uL (1.0-4.8); Monocytes # (M) 0.25 k/uL (0-1.0); Neutrophils # (M) 0.63 k/uL (1.3-7.7); Neutrophils % (M) 35 %
[2020-07-18 09:00] LABS: Blast Cells # (M) 0.05 k/uL (0); Nucleated Red Blood Cells 0 /100 WBC (0-0); Total Cells Counted 100
[2020-07-18 09:09] LABS: RBC Fragments Present
[2020-07-18 09:10] LABS: Poikilocytosis (M) Present; Spherocytes Present
[2020-07-18] MEDS ORDERED: NALOXONE 0.4 MG/ML 1 ML VIAL IV PRN (09:23)
[2020-07-18] MEDS ORDERED: ONDANSETRON 4 MG/2 ML VIAL IVP PRN (09:23)
[2020-07-18 11:44] VITALS: PULSE 80
[2020-07-18 14:09] VITALS: BMI 24.6
--- NOTE | 2020-07-18 14:21 | P.DS ---
Providers Date of admission: 07/13/20 07:52 Expected date of discharge: 07/18/20 Attending physician: Adam Ortega Consults: 07/13/20 07:52 Consult Physician Stat Consulting Provider: Clarence Lucia Consult Reason/Comments: Seizure vs vagal episode, adenocarcinoma Do you want consulting provider notified?: Yes Consult Physician Stat Consulting Provider: Rex Trejo Consult Reason/Comments: leukopenia, adenocarcinoma, dehydration Do you want consulting provider notified?: Yes 07/13/20 16:26 Consult Physician Routine Consulting Provider: Migue Hurtado Consult Reason/Comments: orthostatic hypotension Do you want consulting provider notified?: Yes Primary care physician: [facility] Course: Final Diagnoses: Recurrent near syncope, multifactorial in a patient with lung CA, metastatic adenocarcinoma who received his chemotherapy on Friday ,secondary to dehydration, anemia, orthostatic hypotension, in a patient with history of large pericardial effusion with early cardiac tamponade requiring emergent percutaneos training. No reoccurrence of pericardial effusion as per repeat echo. MRI of brain reported normal. EEG reported normal, no seizure activity. Acute renal failure, Orthostatic hypotension, improved Hypokalemia Dehydration Diarrhea Anemia secondary to chemotherapy Leukopenia secondary to chemotherapy Neutropenia secondary to chemotherapy COPD, chronic History of nicotine dependence, [id number] History of prostate and skin cancer Hospital course:This a 74-year-old gentleman recently diagnosed with lung cancer, adenocarcinoma, presented to the ER with complaints of liquid diarrhea 4 days with significant amount of flatus, lightheadedness," burning throughout his body" and near syncope upon sitting up, accompanied by blank staring. Patient received second chemo treatment last Friday. Patient reports upon sitting or standing up he becomes lightheaded, unable to formulate thoughts, legs become weaker for a few minutes as if they will give out. reports patient with blank stare, becomes stiff and incontinent of urine in the [employer] hours around 4 to 5 AM X the last three days, each episode lasting a couple minutes. Denies headaches, visual changes ,fever or chills. Denies chest pain, palpitations or shortness of breath. Denies nausea or vomiting or abdominal pain. Received fluid bolus for severe orthostatic hypotension; supine 142/83, pulse 67, sitting decreased to 95/64, pulse is 75 and upon standing decreased further to 72/62 with pulse of 75. WBC 1.3, hemoglobin 9.6, platelets 407, neutrophils 0.46, sodium 133, potassium 3, BUN 56, creatinine 1.4 to, glucose 102, lactic acid 1.4, magnesium 2.1, troponin 0.017. UA reporting 90 hyalinecast, occasional mucus. Chest x-ray reporting no acute process, right upper lobe nodular density previously reported on prior PET CT Scan, density along the anterior margin of the first right rib, too small to characterize. EKG brain sinus rhythm with PVCs 07/14/20 2 cultures in progress, tested negative for C. difficile colitis. Diarrhea persists 3 episodes this morning. Questran initiated. WBC 0.6, hemoglobin 7.9, on Zarxio. Evaluated by cardiology, oncology and neurology, with recommendations noted and appreciated. EGD reported no focal lateralizing or epileptiform activity seen. Scheduled for brain MRI today. Denies chest pain, palpitations or shortness of breath. Maintain IV fluid hydration. Significant orthostatic hypotension. Echo reporting normal LV function, EF 55- 60%,no reoccurrence of pericardial effusion. Carotid Doppler reporting no significant hemodynamic stenosis. 07/17/2020 orthostatic hypotension improving, Diarrhea improving. Denies any lightheadedness dizziness or focal deficits. Denies chest pain, palpitations or shortness of breath. Afebrile, WBC up to 1.5, hemoglobin 6.8, platelets 54. Brain MRA reported normal. Chest x-ray from yesterday reportedly nonacute. Telemetry sinus rhythm. Denies chest pain, palpitations. Receive 1 unit of packed RBCs yesterday, significant clinical improvement. Didn't receive 1.8, hemoglobin 7.7, platelets 37. Cleared by oncology for discharge. Patient reported Oncology discussing possibly proceeding with only immunotherapy. Patient will be discharged home in a stable condition with guarded prognosis. The impression and plan of care has been dictated as directed. : I performed a history and examination of this patient, discussed the same with the dictator. I agree with the dictator's note ,documented as a scribe. Any additional findings or plans will be noted. Patient Condition at Discharge: Stable Plan - Discharge Summary Discharge Rx Participant: No New Discharge Prescriptions: New Chlorthalidone [Hygroton] 12.5 mg PO DAILY #30 tablet Nystatin 100,000Unit/gm Cream [Mycostatin Cream] 1 applic TOPICAL TID applic Pantoprazole [Protonix] 40 mg PO DAILY #30 tablet.dr Continue Umeclidinium Brm/Vilanterol Tr [Anoro Ellipta 62.5-25 Mcg INH] 1 puff INHALATION RT-DAILY clonazePAM [KlonoPIN] 0.5 mg PO HS Albuterol Inhaler [Ventolin Hfa Inhaler] 2 puff INHALATION RT-QID #2 puff Albuterol Nebulized [Ventolin Nebulized] 2.5 mg INHALATION RT-QID PRN PRN Reason: Shortness Of Breath Ondansetron [Zofran] 4 mg PO Q4H PRN PRN Reason: Nausea Folic Acid 1 mg PO DAILY Discontinued Potassium Chloride [Klor-Con 20] 20 meq PO DAILY Furosemide [Lasix] 40 mg PO BID Discharge Medication List Umeclidinium Brm/Vilanterol Tr [Anoro Ellipta 62.5-25 Mcg INH] 1 puff INHALATION RT-DAILY 03/01/19 [History] clonazePAM [KlonoPIN] 0.5 mg PO HS 03/01/19 [History] Albuterol Inhaler [Ventolin Hfa Inhaler] 2 puff INHALATION RT-QID #2 puff 04/27/20 [Rx] Albuterol Nebulized [Ventolin Nebulized] 2.5 mg INHALATION RT-QID PRN 05/09/20 [History] Folic Acid 1 mg PO DAILY 07/13/20 [History] Ondansetron [Zofran] 4 mg PO Q4H PRN 07/13/20 [History] Chlorthalidone [Hygroton] 12.5 mg PO DAILY #30 tablet 07/17/20 [Rx] Nystatin 100,000Unit/gm Cream [Mycostatin Cream] 1 applic TOPICAL TID applic 07/17/20 [Rx] Pantoprazole [Protonix] 40 mg PO DAILY #30 tablet. 07/18/20 [Rx] Follow up Appointment(s)/Referral(s): Rex Trejo MD [STAFF PHYSICIAN] - 1 Week (Keep previous appointment. ) [facility], [NON-STAFF] - 1-2 Days Adam Ortega Jr, DO [Primary Care Provider] - 07/25/20 11:00 am Ambulatory/Diagnostic Orders: Complete Blood Count w/diff [LAB.AMB] Time Frame: 3 Days, Location: None Selected Patient Instructions/Handouts: Dehydration (DC), Anemia (DC), Syncope in Older Adults (DC) Activity/Diet/Wound Care/Special Instructions: Compression stockings take home.
--- NOTE | 2020-07-18 14:58 | P.PN ---
Subjective Progress Note Date: 07/18/20 Principal diagnosis: dehydration, pancytopenia secondary to chemotherapy In follow-up today patient states Patient is feeling pretty well, mild shortness of breath on exertion, diarrhea continues to be resolved, form bowel movement today, no dizziness, he is tolerating oral intake well, no fevers, he is able to ambulate with assistive device. Objective - Vital Signs Vital signs: Vital Signs Temp 98.2 F 07/18/20 07:00 Pulse 80 07/18/20 11:44 Resp 16 07/18/20 07:00 BP 124/63 07/18/20 07:00 Pulse Ox 94 L 07/18/20 07:00 Intake & Output 07/17/20 07/18/20 07/18/20 18:59 06:59 18:59 Intake Total 2170 940 Output Total 1900 1560 Balance 270 -1560 940 Weight 82.5 kg 82.5 kg Intake: Oral 1860 940 Blood Product 310 Rc As-1 Unit 310 [id number] Output: Urine 1900 1560 Other: Voiding Method Urinal # Voids 400 1 - Constitutional General appearance: Present: average body habitus, cooperative, no acute distress - EENT Eyes: Present: anicteric sclerae, EOMI ENT: Present: normal oropharynx - Respiratory Respiratory: bilateral: CTA - Cardiovascular Heart sounds: normal: S1, S2 - Peripheral edema leg Peripheral Edema: bilateral: None - Gastrointestinal General gastrointestinal: Present: normal bowel sounds, soft - Neurologic Neurologic: Present: CNII-XII intact - Musculoskeletal Musculoskeletal: Present: strength equal bilaterally - Psychiatric Psychiatric: Present: A&O x's 3, appropriate affect, intact judgment & insight - Labs CBC & Chem 7: 07/18/20 06:33 07/16/20 05:49 Labs: Abnormal Lab Results - Last 24 Hours (Table) 07/18/20 Range/Units 06:33 WBC 1.8 L (3.8-10.6) k/uL RBC 2.50 L (4.30-5.90) m/uL Hgb 7.7 L (13.0-17.5) gm/dL Hct 24.0 L (39.0-53.0) % RDW 16.6 H (11.5-15.5) % Plt Count 37 L (150-450) k/uL Blast Cells % 3 H* % Neutrophils # (Manual) 0.63 L (1.3-7.7) k/uL Lymphocytes # (Manual) 0.86 L (1.0-4.8) k/uL Blast Cells # (Man) 0.05 H (0) k/uL Microbiology - Last 24 Hours (Table) 07/13/20 17:14 Blood Culture - Preliminary Blood No Growth after 96 hours 07/13/20 17:06 Blood Culture - Preliminary Blood No Growth after 96 hours Assessment and Plan (1) Diarrhea Narrative/Plan: No infection found in the stool. Patient has utilize Questran with improvement, 2 formed stool. Cont to hold Questran. Current Visit: Yes Status: Acute Priority: High Code(s): R19.7 - DIARRHEA, UNSPECIFIED SNOMED Code(s): 14014958 (2) Pancytopenia due to antineoplastic chemotherapy Narrative/Plan: Hemoglobin of 7.7. Transfuse for hemoglobin less than 7 unless patient is severely symptomatic Patient continues on G-CSF today for a WBC of 1.8. No need to continue on DC Platelet count 37,000 today. Transfuse for a platelet count less than 10,000 or bleeding. No asa, NSAIDs, DVT prophylaxis. Current Visit: Yes Status: Acute Priority: High Code(s): D61.810 - ANTINEOPLASTIC CHEMOTHERAPY INDUCED PANCYTOPENIA; T45.1X5A - ADVERSE EFFECT OF ANTINEOPLASTIC AND IMMUNOSUP DRUGS, INIT SNOMED Code(s): 528245173082811 (3) Orthostatic hypotension Current Visit: Yes Status: Resolved Priority: High Code(s): I95.1 - ORTHOSTATIC HYPOTENSION SNOMED Code(s): 53134936 (4) Adenocarcinoma Narrative/Plan: Dr. Trejo is going to hold the chemotherapy portion of patients treatment. Patient has had significant side effects/heme toxicities after just 2 cycles. Plan is to continue with immunotherapy. Treatment follow-up imaging is typically done after the third or fourth cycle when chemotherapy is involved, typically a few more cycles when it is immunotherapy alone. Patient's symptoms will be monitored closely. Imaging when appropriate. Patient verbalized understanding the plan. Treatment is not due for another week and a half. Current Visit: Yes Status: Chronic Priority: High Code(s): C80.1 - MALIGNANT (PRIMARY) NEOPLASM, UNSPECIFIED SNOMED Code(s): 406031229 Plan: Ok for DC from a Heme/Onc standpoint. Follow-up appointment in 3 days for CBC. Doctor attests: I performed a history and physical examination of this patient, developed impression and plan of care, discussed with dictator. I agree with dictators note, documented as a scribe.
== END 2020-07-18 14:57 | disposition home or self-care (01) | DRG 312 ==
LOC: EC 06:13 → 3SCARD 07:52
PROVIDERS: ADMIT Family Medicine; ATTEND Family Medicine
PROC: 30233N1 Transfusion of Nonautologous Red Blood Cells into Peripheral Vein, Percutaneous Approach (ICD-10-PCS; principal; 2020-07-13)
DX: I95.1 Orthostatic hypotension (principal); D61.810 Antineoplastic chemotherapy induced pancytopenia; C34.90 Malignant neoplasm of unspecified part of unspecified bronchus or lung; C79.9 Secondary malignant neoplasm of unspecified site; C79.89 Secondary malignant neoplasm of other specified sites; N17.9 Acute kidney failure, unspecified; Z85.46 Personal history of malignant neoplasm of prostate; Z90.79 Acquired absence of other genital organ(s); E86.0 Dehydration; E87.6 Hypokalemia; F10.21 Alcohol dependence, in remission; Z87.891 Personal history of nicotine dependence; F40.240 Claustrophobia; H91.90 Unspecified hearing loss, unspecified ear; I49.3 Ventricular premature depolarization; J44.9 Chronic obstructive pulmonary disease, unspecified; R32 Unspecified urinary incontinence; R56.9 Unspecified convulsions; Z20.828 Contact with and (suspected) exposure to other viral communicable diseases; T45.1X5A Adverse effect of antineoplastic and immunosuppressive drugs, initial encounter; R19.7 Diarrhea, unspecified; Z88.1 Allergy status to other antibiotic agents; Z88.2 Allergy status to sulfonamides; Z91.81 History of falling; H93.13 Tinnitus, bilateral; Z81.1 Family history of alcohol abuse and dependence; Z83.6 Family history of other diseases of the respiratory system; Z82.69 Family history of other diseases of the musculoskeletal system and connective tissue; Z82.0 Family history of epilepsy and other diseases of the nervous system; Z80.3 Family history of malignant neoplasm of breast; R91.8 Other nonspecific abnormal finding of lung field; Z79.899 Other long term (current) drug therapy; Z82.5 Family history of asthma and other chronic lower respiratory diseases; Z85.828 Personal history of other malignant neoplasm of skin; Z96.641 Presence of right artificial hip joint; Z87.01 Personal history of pneumonia (recurrent); Z87.11 Personal history of peptic ulcer disease; K44.9 Diaphragmatic hernia without obstruction or gangrene
CPT/HCPCS: 36415; 70450; 70553; 71045; 71046; 80048; 80053; 81001; 81003; 82272; 83605; 83735; 84132; 84484; 85025; 85610; 85730; 86850; 86900; 86901; 86920; 87040; 87045; 87046; 87324; 87635; 93005; 93306; 93880; 94640; 94760; 95816; 96361; 96374; 99285

== ENCOUNTER → 2020-08-03 | Outpatient (CLI) | payer MEDICARE ==
--- NOTE | 2020-08-03 10:19 | US ---
EXAMINATION TYPE: US venous doppler duplex LE LT DATE OF EXAM: 08/03/2020 10:04 AM COMPARISON: US 05/10/20 CLINICAL HISTORY: R22.42 SWELLING OF LT LOWER LIMB. SIDE PERFORMED: Left TECHNIQUE: The lower extremity deep venous system is examined utilizing real time linear array sonog harlan with graded compression, doppler sonography and color-flow sonography. VESSELS IMAGED: External Iliac Vein (EIV) Common Femoral Vein Deep Femoral Vein Greater Saphenous Vein * Femoral Vein Popliteal Vein Small Saphenous Vein * Proximal Calf Veins (* superficial vessels) Left Leg: Negative for DVT IMPRESSION: No evidence for DVT at this time.
== END | disposition home or self-care (01) ==
LOC: RADUSWWP 09:35
PROVIDERS: ATTEND Internal Medicine Hematology & Oncology
DX: R22.42 Localized swelling, mass and lump, left lower limb (principal); Z88.1 Allergy status to other antibiotic agents; Z88.2 Allergy status to sulfonamides

== ENCOUNTER → 2020-08-07 | Outpatient (CLI) | payer MEDICARE ==
--- NOTE | 2020-08-07 16:18 | CT ---
EXAMINATION TYPE: CT ChestAbdPelvis w con DATE OF EXAM: 08/07/2020 COMPARISON: PET/CT 06/02/2020 HISTORY: Lung CA CT DLP: 1376 mGycm CONTRAST: CT scan of the chest, abdomen and pelvis is performed with Oral Contrast and with IV Contrast, patien t injected with 100 mL of Isovue 300. CT Chest: LUNGS: Right apical 7.7 mm nodule is unchanged from prior study. Stable 6 mm left lower lobe pulmonar y nodule. No additional nodules seen. Resolution of previously noted small left-sided pleural effusio n. Upper lobe emphysematous changes. MEDIASTINUM: Thoracic aorta is of normal caliber. The heart is not enlarged. No evidence for media stinal mass or adenopathy. HILAR STRUCTURES: No evidence for mass. No hilar adenopathy is appreciated. OTHER: No significant abnormality. CONTRAST CT ABDOMEN AND PELVIS FINDINGS: LIVER/GB: No calcified gallstones. No space occupying hepatic lesion. Biliary tree is of normal ca liber. PANCREAS: No inflammation. No distinct mass. SPLEEN: No splenic enlargement. No lesion seen. ADRENALS: No nodule. No thickening. KIDNEYS/BLADDER: No hydronephrosis. No nephrolithiasis. No distinct renal mass. BOWEL: Normal appendix. Normal bowel caliber. No inflammation. Small sliding-type hiatal hernia. Le ft inguinal hernia contains a segment of small bowel. No evidence for obstruction. GENITAL ORGANS: No gross abnormality. LYMPH NODES: No greater than 1cm abdominal or pelvic lymph nodes are appreciated. AORTA: No significant abnormality. OSSEOUS STRUCTURES: Right hip prosthesis noted. OTHER: No significant additional abnormality is seen. IMPRESSION: 1. Stable right apical pulmonary nodule. Stable 6 mm left lower lobe pulmonary nodule. No evidence fo r metastatic disease at this time.
== END | disposition home or self-care (01) ==
LOC: RADCTMAIN 13:43
PROVIDERS: ATTEND Internal Medicine Hematology & Oncology
DX: C34.90 Malignant neoplasm of unspecified part of unspecified bronchus or lung (principal); Z88.1 Allergy status to other antibiotic agents; Z88.2 Allergy status to sulfonamides
CPT/HCPCS: 82565; 84520; 71260; 74177; 36415; Q9967

== ENCOUNTER → 2020-10-26 | Outpatient (CLI) | payer MEDICARE ==
--- NOTE | 2020-10-26 13:53 | CT ---
EXAMINATION TYPE: CT ChestAbdPelvis w con DATE OF EXAM: 10/26/2020 COMPARISON: Most recent CT August 07, 2020 and older CTs. Most recent PET/CT June 02, 2020 HISTORY: Lung cancer. Additional history of prostate cancer. Metastatic adenocarcinoma. CT DLP: 674.1 mGycm. Automated Exposure Control for Dose Reduction was Utilized. CONTRAST: CT scan of the thorax, abdomen and pelvis is performed with oral and with IV Contrast, patient inject ed with 80 mL of Isovue M300. FINDINGS: LUNGS: Moderate underlying emphysematous changes are redemonstrated. Stable mild biapical pleural/parenchyma l scarring. Stable 11 x 7 mm posterior right upper lung scar like opacity axial image 12 from multipl e prior studies. The 5 x 3 mm posterior left lower lobe nodule is less prominent current study axial image 47 presumed technical. There is 3 to 4 mm nodule laterally on same image are unchanged from sev eral prior studies. No definitive new or enlarging nodules. There is new trace right and tiny left pl eural effusion on current study. Stable calcified anterior right midlung nodule or plaque axial image 26. MEDIASTINUM: There are no new or enlarging greater than 1 cm hilar or mediastinal lymph nodes. Right tracheobronchial 1.3 x 0.9 cm lymph node image 26 not significantly changed from most recent CT, smal ler in size from older CTs. No cardiomegaly or pericardial effusion is seen. Stable subcentimeter le ft thyroid nodule axial image 8. Mild coronary artery calcification redemonstrated. OTHER: Stable prominent but subcentimeter bilateral axillary lymph nodes again seen.. LIVER/GB: No significant abnormality is appreciated. PANCREAS: No significant abnormality is seen. SPLEEN: No significant abnormality is seen. ADRENALS: No significant abnormality is seen. KIDNEYS: Symmetric cortical medullary uptake and excretion from both kidneys without concerning mass or hydronephrosis. BOWEL: Oral contrast reaches level of the distal transverse colon. No suspicious small or large bowel dilatation. GENITAL ORGANS: Prostate gland not well seen and may be surgically absent. No distinct surgical clips . LYMPH NODES: No greater than 1cm abdominal or pelvic lymph nodes are appreciated. OSSEOUS STRUCTURES: Metallic hardware from total right hip arthroplasty causes streak artifact limiti ng evaluation of pelvic structures. Mild facet arthropathy lower lumbar levels. OTHER: Stable moderate-sized fat-containing left internal hernia. Moderate to severe calcified plaque of the aorta extends into branch vessels IMPRESSION: No new or enlarging nodules or adenopathy to suggest active neoplastic progression.
== END | disposition home or self-care (01) ==
LOC: RADCTMAIN 11:08
PROVIDERS: ATTEND Internal Medicine Hematology & Oncology
DX: C34.90 Malignant neoplasm of unspecified part of unspecified bronchus or lung (principal); Z88.1 Allergy status to other antibiotic agents; Z88.2 Allergy status to sulfonamides
CPT/HCPCS: 82565; 84520; 71260; 74177; 36415; Q9967 ×2

== ENCOUNTER → 2020-12-06 | Outpatient (CLI) | payer MEDICARE ==
--- NOTE | 2020-12-06 13:08 | XR ---
EXAMINATION TYPE: XR chest 2V DATE OF EXAM: 12/06/2020 COMPARISON: Chest x-ray July 16, 2020. Most recent CT October 26, 2020. HISTORY: Lung cancer. TECHNIQUE: Frontal and lateral views of the chest are obtained. FINDINGS: There is background Chronic emphysematous change and right apical nodularity. Small to tin y bilateral pleural effusions are now present. Patchy associated left greater than right bibasilar li near atelectasis The cardiac silhouette size remains within normal limits without change in the thora cic aorta. The osseous structures remain intact. IMPRESSION: Chronic emphysematous change with new small to tiny bilateral pleural effusions.
== END | disposition home or self-care (01) ==
LOC: RADXRMAIN 12:55
PROVIDERS: ATTEND Internal Medicine Hematology & Oncology
DX: C34.90 Malignant neoplasm of unspecified part of unspecified bronchus or lung (principal); J43.9 Emphysema, unspecified; J90 Pleural effusion, not elsewhere classified
CPT/HCPCS: 71046

== ENCOUNTER → 2021-02-01 | Outpatient (CLI) | payer MEDICARE ==
--- NOTE | 2021-02-01 08:56 | XR ---
EXAMINATION TYPE: XR chest 2V DATE OF EXAM: 02/01/2021 COMPARISON: 12/06/2020 TECHNIQUE: PA and lateral views submitted. HISTORY: Lung cancer FINDINGS: Hyperinflation with bilateral basilar consolidation and small effusion stable. There is a 8 mm nodule in the right lung apex superimposed overlying the posterior margin the right fourth rib. No overt fa ilure. Heart size normal. Atherosclerotic change aorta. Hypertrophic and degenerative change of the s pine. IMPRESSION: 1. COPD with stable basilar infiltrate and small effusions. 2. 8mm nodule right upper lobe stable.
== END ==
LOC: RADXRMAIN 08:28
PROVIDERS: ATTEND Internal Medicine Hematology & Oncology
DX: J90 Pleural effusion, not elsewhere classified (principal); J44.9 Chronic obstructive pulmonary disease, unspecified
CPT/HCPCS: 71046

== ENCOUNTER → 2021-02-07 | Outpatient (CLI) | payer MEDICARE ==
--- NOTE | 2021-02-07 12:24 | CT ---
EXAMINATION TYPE: CT ChestAbdPelvis w con DATE OF EXAM: 02/07/2021 COMPARISON: 10/26/2020 HISTORY: Follow up lung cancer. CT DLP: 623 mGycm Automated exposure control for dose reduction was used. CONTRAST: CT scan of the chest, abdomen and pelvis is performed with Oral Contrast and with IV Contrast, patien t injected with 60 mL of Isovue 300. FINDINGS: LUNGS: Moderate underlying emphysema. Biapical pleural thickening.Stable nodule right lung apex measu ring 1.1 x 0.7 cm. There are bilateral pleural effusions which have increased on the right relative t o the prior exam. Stable 4 mm nodule and 5 mm nodule left lower lobe retrospectively a 1 mm nodule se en laterally in superior segment left lower lobe also stable. Subsegmental changes involving the ante rior segment of the left upper lobe is new but appears to be most typical of atelectasis pleural-base d calcification noted. MEDIASTINUM: There are no greater than 1 cm hilar or mediastinal lymph nodes. No pericardial effusi on is seen. Mild atherosclerotic changes aorta. Mild aneurysmal dilation of the ascending aorta kayode uring 4 cm. OTHER: No additional significant abnormality is seen. LIVER/GB: No significant abnormality is appreciated. PANCREAS: No significant abnormality is seen. SPLEEN: No significant abnormality is seen. ADRENALS: Normal morphology. KIDNEYS: No significant abnormality is seen. BOWEL: Stable left inguinal hernia. Mild thickening of the wall the gastric antrum. LYMPH NODES: No greater than 1 cm abdominal or pelvic lymph nodes are appreciated. OSSEOUS STRUCTURES: Hypertrophic and degenerative changes spine. Postoperative change of the hip. Ind eterminate appearing superior compression fracture L1. Not seen on prior exam. OTHER: Atherosclerotic change of the abdominal aorta. Subcentimeter left thyroid nodule. IMPRESSION: 1. COPD with stable pulmonary nodules. However there is interval increase in amount of pleural fluid bilaterally greater on the right relative to the prior exam. 2. There is a new moderate superior endplate compression fracture of L1 which is age indeterminant ma y be chronic. However, was not seen on prior exam. 3. Mild thickening of the gastric antrum may be related to incomplete distention correlate with the p atient's symptoms to exclude gastritis or peptic ulcer disease. Other etiologies not excluded 4. Left inguinal hernia.
== END ==
LOC: RADCTMAIN 09:54
PROVIDERS: ATTEND Internal Medicine Hematology & Oncology
DX: J44.9 Chronic obstructive pulmonary disease, unspecified (principal); K40.90 Unilateral inguinal hernia, without obstruction or gangrene, not specified as recurrent
CPT/HCPCS: 82565; 84520; 71260; 74177; 36415; Q9967

== ENCOUNTER 2021-03-12 08:02 | Day surgery (SDC) | payer MEDICARE ==
[2021-03-07 15:53] VITALS: BMI 23.0
--- NOTE | 2021-03-12 07:45 | P.HPADDEND ---
H&P Addendum H&P Addendum Date: 03/12/21 Patient seen in the office on 03/01. Following that I was able to discuss his case with his oncologist. His thoracentesis cytology came back negative. Oncology believes now is a good time to proceed with elective repair of his symptomatic left inguinal hernia. We'll proceed. Please refer to recent H&P.
[~2021-03-12 08:02] MED LIST changes: +ACETAMINOPHEN TAB 500 MG TAB PO PRN; -DEXAMETHASONE SOD PHOSPHATE 10 MG/ML 1 ML VIAL IV ONE; -HEPARIN SODIUM,PORCINE 5,000 UNIT/ML 1 ML VIAL SQ ONE; +HEPARIN SODIUM,PORCINE/PF 5,000 UNIT/0.5 ML SYRINGE SQ PRN; -HYDROmorphone 0.5 MG/0.5 ML SYRINGE IVP PRN; +LACTATED RINGERS 1,000 ML IV SCH; +LIDOCAINE 1% (10MG/ML) FOR IV START INTRADERMA PRN; -ONDANSETRON 4 MG/2 ML VIAL IVP ONE; -SCOPOLAMINE 1.5MG/72HR PATCH TRANSDERM ONE; -ceFAZolin IN SWFI 2 GM/20 ML SYRINGE IVP ONE; +fentaNYL (PF) 50 MCG/ML 2 ML AMP IV PRN
[2021-03-12 08:32] VITALS: RESP 16
[2021-03-12] MEDS ORDERED: ONDANSETRON 4 MG/2 ML VIAL IVP ONE (08:44)
[2021-03-12] MEDS ORDERED: DEXAMETHASONE SOD PHOSPHATE 4 MG/ML 1 ML VIAL IV ONE (08:45)
[2021-03-12] MEDS ORDERED: ONDANSETRON 4 MG/2 ML VIAL ONE (08:46)
[2021-03-12] MEDS ORDERED: SUCCINYLCHOLINE CHLORIDE 100 MG/5 ML SYR IV ONE (09:24)
[2021-03-12] MEDS ORDERED: LIDOCAINE 1% INJ 10MG/ML (20 ML MDV) ONE (09:24)
[2021-03-12] MEDS ORDERED: ePHEDrine SULFATE/0.9% NACL/PF 50 MG/5 ML SYRINGE IV ONE (09:24)
[2021-03-12] MEDS ORDERED: ROCURONIUM 10 MG/ML (5 ML VIAL) IV ONE (09:24)
[2021-03-12] MEDS ORDERED: fentaNYL (PF) 50 MCG/ML 2 ML AMP ONE (09:24)
[2021-03-12] MEDS ORDERED: KETOROLAC 15 MG/ML 1 ML VIAL ONE (09:24)
[2021-03-12] MEDS ORDERED: GLYCOPYRROLATE 0.2 MG/ML 2 ML VIAL ONE (09:24)
[2021-03-12] MEDS ORDERED: NEOSTIGMINE 1 MG/ML 10 ML VIAL ONE (09:24)
[2021-03-12] MEDS ORDERED: PROPOFOL 10 MG/ML 20 ML VIAL IV ONE (09:24)
[2021-03-12] MEDS ORDERED: BUPIVACAINE (PF) 0.5% 30 ML VIAL SQ ONE ×2 (09:53)
[2021-03-12] MEDS ORDERED: LACTATED RINGERS 1,000 ML IV ONE (10:17)
--- NOTE | 2021-03-12 10:32 | P.OP ---
Date of Procedure: 03/12/21 Procedure(s) Performed: PREOPERATIVE DIAGNOSIS: Left inguinal hernia POSTOPERATIVE DIAGNOSIS: Same PROCEDURE: Left indirect inguinal hernia repair with mesh SURGEON: Cara EBL: Minimal ANESTHESIA: General COMPLICATIONS: None OPERATIVE PROCEDURE: Patient was placed in the operating table in the supine position and placed under general anesthesia. An oblique incision was made in the left groin. Dissection down through the subcutaneous tissues took place using electrocautery. The external oblique fascia was incised using a scalpel. This opening was lengthened using the Metzenbaum scissors. The spermatic cord was encircled with a Pomeroy drain. The structures were identified and preserved. Careful dissection revealed an indirect hernia sac. This was carefully dissected back to the internal inguinal ring where it was ligated using 2 separate 0 silk stick tie sutures. A 3" x 6" Prolene mesh was cut to fit on the exposed fascia. This was sutured to the pubic tubercle the folding edge of the inguinal ligament and the conjoined tendon. A slit was created in the mesh and the mesh was wrapped around the spermatic cord and sutured back to itself. The external oblique was then reapproximated using a running 2-0 Vicryl suture. The subcutaneous tissues were reapproximated using a 3-0 Vicryl sutures. The skin was closed using 4-0 Monocryl sutures. Skin glue and sterile dressings were then applied. DISPOSITION: Stable to recovery room
[2021-03-12 10:35] VITALS: TEMP 97.8
[2021-03-12] MEDS ORDERED: IBUPROFEN 600 MG TAB PO SCH (12:00)
[2021-03-12 12:04] VITALS: BP 118/56; PULSE 61
[2021-03-12] MEDS ORDERED: ACETAMINOPHEN TAB 325 MG TAB PO SCH (15:00)
== END 2021-03-12 12:48 | disposition home or self-care (01) ==
LOC: OR 08:02
PROVIDERS: ATTEND Surgery
DX: K40.90 Unilateral inguinal hernia, without obstruction or gangrene, not specified as recurrent (principal); K21.9 Gastro-esophageal reflux disease without esophagitis; C80.1 Malignant (primary) neoplasm, unspecified; J44.9 Chronic obstructive pulmonary disease, unspecified; H91.90 Unspecified hearing loss, unspecified ear; G47.52 REM sleep behavior disorder; F40.240 Claustrophobia; C79.9 Secondary malignant neoplasm of unspecified site; Z98.890 Other specified postprocedural states; Z96.641 Presence of right artificial hip joint; Z90.79 Acquired absence of other genital organ(s); Z80.3 Family history of malignant neoplasm of breast; Z85.46 Personal history of malignant neoplasm of prostate; Z85.828 Personal history of other malignant neoplasm of skin; Z87.891 Personal history of nicotine dependence; I10 Essential (primary) hypertension; N40.0 Benign prostatic hyperplasia without lower urinary tract symptoms; Z79.899 Other long term (current) drug therapy; Z88.1 Allergy status to other antibiotic agents; Z88.2 Allergy status to sulfonamides
CPT/HCPCS: 88302; 49505; C1781; J1100; J2710; J0690; J2405; J2001; J3010; J1885; J0330; J2704; J1644

== ENCOUNTER → 2021-03-29 | Outpatient (CLI) | payer MEDICARE ==
--- NOTE | 2021-03-30 04:21 | MR ---
EXAMINATION TYPE: MR brain wo/w con DATE OF EXAM: 03/29/2021 COMPARISON: 07/14/2020 HISTORY: Lung Cancer, Unusual weakness, Dizziness CONTRAST: Standard multiplanar, multisequence MRI departmental protocol utilizing 7.5 mL intravenous Gadavist g adolinium contrast. There is cerebral cortical atrophy. There is no mass effect nor midline shift. Diffusion images show no evidence of an acute infarct. Brainstem is intact. Corpus callosum is intact. There is mucosal thi ckening in the maxillary ethmoid sphenoid and frontal sinuses. There are a few scattered white matter high signal foci on the T2 and FLAIR images around the centrum semiovale bilaterally. These measure up to 4 mm. Total number is approximately 10. Contrast images show no pathologic enhancement. There is normal enhancement of the venous sinuses. Th ere is no evidence of posterior fossa mass. IMPRESSION: There is some cerebral atrophy. No acute intracranial abnormality. No evidence of metastatic disease. Pansinusitis.
== END | disposition home or self-care (01) ==
LOC: RADMRIMAIN 07:20
PROVIDERS: ATTEND Internal Medicine Hematology & Oncology
DX: C34.90 Malignant neoplasm of unspecified part of unspecified bronchus or lung (principal); G31.9 Degenerative disease of nervous system, unspecified
CPT/HCPCS: 70553; A9585

== ENCOUNTER → 2021-04-12 | Outpatient (CLI) | payer MEDICARE ==
--- NOTE | 2021-04-12 11:22 | XR ---
EXAMINATION TYPE: XR chest 2V DATE OF EXAM: 04/12/2021 COMPARISON: 02/01/2021 HISTORY: Lung cancer, chemotherapy therapy immunosuppression. TECHNIQUE: Frontal and lateral views of the chest are obtained. FINDINGS: Heart size is within normal limits. Atherosclerotic aorta. No pneumothorax. Blunting of t he costophrenic angle suggestive of small pleural effusions. Faint bibasilar airspace opacities sugge stive of atelectasis or pneumonia pneumonia. Hyperaeration lungs and flattening of the diaphragms wit h increased retrosternal airspace suggestive of COPD. 8 mm nodule at the right upper lobe is stable. IMPRESSION: 1. COPD with mild bibasilar airspace opacities and small pleural effusions. 8 mm nodule at the right upper lobe is stable.
== END | disposition home or self-care (01) ==
LOC: RADXRMAIN 08:36
PROVIDERS: ATTEND Internal Medicine Hematology & Oncology
DX: C34.90 Malignant neoplasm of unspecified part of unspecified bronchus or lung (principal); J44.9 Chronic obstructive pulmonary disease, unspecified; J90 Pleural effusion, not elsewhere classified; R91.8 Other nonspecific abnormal finding of lung field; R91.1 Solitary pulmonary nodule
CPT/HCPCS: 71046

== ENCOUNTER 2021-04-15 20:36 | Inpatient (IN) | payer MEDICARE ==
[2021-04-15] MEDS ORDERED: ALBUTEROL NEBULIZED 2.5 MG/3 ML INHALATION STA (21:33)
--- NOTE | 2021-04-15 21:37 | ED ---
SOB HPI - General Chief Complaint: Shortness of Breath Stated Complaint: cancer patient, SOB Time Seen by Provider: 04/15/21 21:05 Source: patient, family (), RN notes reviewed Mode of arrival: ambulatory Limitations: no limitations - History of Present Illness Initial Comments: 75-year-old white male patient, alert and oriented 4 presents to the emergency room with his . Patient states that he has had URI type symptoms for the past 3 weeks. Primary care doctor, Dr Loera, put him on a Z-Alvin and Medrol Dosepak on Friday this week which he finished. Patient is on 1-1/2 L of oxygen at home for his COPD. Patient was tested for Covid and negative and was also vaccinated. Patient states last time, roughly 1 year ago, when he felt this congestion, cough and shortness of breath he had a pericardiocentesis done and they drained 4 cups of fluid off his pericardium. Patient states he had a recent x-ray and was told that there was a shadow on the lung. Patient states was being treated for lung cancer, last chemo was 6 weeks ago but they stopped that he could have left inguinal hernia repair surgery 4 weeks ago. Patient states tried to use prior to his chemotherapy again and was told that his URI symptoms prevent him from starting that may need to reschedule. Patient sees Dr. Chavez and his oncologist is Dr. Linda. Patient states came in today because he is concerned that he may have more fluid around his heart or worsening pneumonia. Patient states that he gets very short of breath walking just to the bathroom at home and its getting worse over the past week. Patient denies any chest pain. Patient denies any hematochezia or hematemesis or hemoptysis. Patient's states that he has had 2 episodes of incontinence at night which is new for him. Patient did have a prostatectomy 4 years ago but has not had incontinence, only dribbling since. Complaint: shortness of breath, cough -: week(s) (3) Severity scale (1-10): 0 Consistency: constant Improves With: rest Worsens With: exertion Known History Of: other (Lung cancer, pneumonia, pericarditis) Context: other (Patient has been treated for pneumonia with a Z-Alvin and Medrol Dosepak on Friday and has finished that dose) Associated Symptoms: cough Treatments Prior to Arrival: none - Related Data Home Medications Medication Instructions Recorded Confirmed Umeclidinium Brm/Vilanterol Tr 1 puff INHALATION RT-DAILY 03/01/19 04/15/21 [Anoro Ellipta 62.5-25 Mcg INH] clonazePAM [KlonoPIN] 0.5 mg PO HS 03/01/19 04/15/21 Albuterol Nebulized [Ventolin 2.5 mg INHALATION RT-QID PRN 05/09/20 04/15/21 Nebulized] Folic Acid 2 mg PO DAILY 07/13/20 04/15/21 Chlorthalidone [Hygroton] 25 mg PO DAILY 03/07/21 04/15/21 Multivitamins, Thera [Multivitamin 1 tab PO DAILY 03/07/21 04/15/21 (formulary)] Pantoprazole [Protonix] 40 mg PO BID 03/07/21 04/15/21 Potassium Chloride 20 meq PO QAM 03/07/21 04/15/21 Albuterol Inhaler [Ventolin Hfa 2 puff INHALATION RT-QID PRN 04/15/21 04/15/21 Inhaler] Cyanocobalamin (Vitamin B-12) 1,000 mcg PO DAILY 04/15/21 04/15/21 [Vitamin B-12] Allergies Allergy/AdvReac Type Severity Reaction Status Date / Time Sulfa (Sulfonamide Allergy Unknown Rash/Hives Verified 04/15/21 22:18 Antibiotics) tetracycline Allergy Unknown "Fuzzy Verified 04/15/21 22:18 headed" Review of Systems ROS Statement: Those systems with pertinent positive or pertinent negative responses have been documented in the HPI. ROS Other: All systems not noted in ROS Statement are negative. Past Medical History Past Medical History: Cancer, GERD/Reflux, Pneumonia Additional Past Medical History / Comment(s): 05/10/20 pericardial effusion with early cardiac tamponade/acute respiratory failure with pericardiocentesis/pneumonia/bilateral leg edema, cancer pericardial sac/chest lymph nodes per pt/spouse-receiving chemotherapy-last time 07/07/20 which was his second dose/has had diarrhea since 2nd dose, vertigo when first standing/syncope, recent anemia with transfusion, lung nodules being monitored and thought possibly scarring from previous pneumonia, prostate cancer with surgery, skin cancer with removals, duodenal ulcer, gastritis, hiatal hernia per 05/18/20 EGD/spouse, severe clausterphobia, 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 and has had falls out of bed, bilateral [place] and tinnitis, past alcoholism per pt but quit drinking 30 plus yrs ago. History of Any Multi-Drug Resistant Organisms: None Reported Past Surgical History: Joint Replacement, Prostate Surgery Additional Past Surgical History / Comment(s): 05/18/20 EGD, colonoscopy, robot assisted laparoscopic prostatectomy with bilateral lymph node dissection, skin cancer removals, rt hip replacement Past Anesthesia/Blood Transfusion Reactions: No Reported Reaction Additional Past Anesthesia/Blood Transfusion Reaction / Comment(s): Claustrophobic. Past Psychological History: No Psychological Hx Reported Smoking Status: Former smoker Past Alcohol Use History: None Reported Past Drug Use History: None Reported - Past Family History Mother Family Medical History: Cancer Additional Family Medical History / Comment(s): breast cancer Father Family Medical History: COPD, Dementia, Musculoskeletal Disorder, Neurologic Disorder Additional Family Medical History / Comment(s): Parkinson's disease, ETOH abuse. General Exam Limitations: no limitations General appearance: alert, in no apparent distress Head exam: Present: atraumatic, normocephalic, normal inspection Eye exam: Present: normal appearance, PERRL, EOMI. Absent: scleral icterus, conjunctival injection, periorbital swelling ENT exam: Present: normal exam, normal oropharynx, mucous membranes moist Neck exam: Present: normal inspection, full ROM. Absent: tenderness, meningismus, lymphadenopathy, thyromegaly Respiratory exam: Present: wheezes. Absent: respiratory distress, chest wall tenderness, accessory muscle use Cardiovascular Exam: Present: regular rate, normal rhythm, normal heart sounds. Absent: systolic murmur, diastolic murmur, rubs, gallop, clicks GI/Abdominal exam: Present: soft, normal bowel sounds. Absent: distended, tenderness, guarding, rebound, rigid Extremities exam: Present: full ROM, normal capillary refill, pedal edema (1+). Absent: tenderness, calf tenderness Back exam: Present: full ROM. Absent: tenderness, CVA tenderness (R), CVA tenderness (L), muscle spasm, paraspinal tenderness, vertebral tenderness Neurological exam: Present: alert, oriented X3, CN II-XII intact Psychiatric exam: Present: normal affect, normal mood Skin exam: Present: warm, dry, intact, normal color. Absent: rash, cyanosis, diaphoretic, erythema, pallor, mottled Course Vital Signs 04/15/21 04/16/21 04/16/21 20:37 00:18 00:29 Temperature 97.3 F L Pulse Rate 84 80 80 Respiratory 26 H Rate Blood Pressure 144/76 O2 Sat by Pulse 97 Oximetry Medical Decision Making - Medical Decision Making WBC count 6.8, hemoglobin and hematocrit is 12.7 and 38.3 respectively, BNP is 252, potassium is 4.0, UA is negative. Troponin 0.012. EKG shows normal sinus rhythm with no ectopy. Chest x-ray shows small left pleural effusion and COPD with no significant changes from 04/12/2021. D-dimer is 0.79, CT angiogram done and shows no pulmonary embolism, a right upper lobe 13mm nodule slightly increased from October 2020. There are small bilateral pleural effusion admissions but there is no pericardial effusion, there is no mediastinal ad enopathy. Patient continues to haven't transitory wheezes and feels short of breath. Discussed at length the benefits of being admitted to the hospital with patient and his . They are agreeable to admission. Case discussed with Dr. Cooper will admit to observation for COPD exacerbation. - Lab Data Result diagrams: 04/15/21 21:42 04/15/21 21:42 Lab Results 04/15/21 04/15/21 04/15/21 Range/Units 21:42 21:42 21:42 WBC 6.8 (3.8-10.6) k/uL RBC 3.70 L (4.30-5.90) m/uL Hgb 12.7 L (13.0-17.5) gm/dL Hct 38.3 L (39.0-53.0) % MCV 103.6 H (80.0-100.0) fL MCH 34.4 (25.0-35.0) pg MCHC 33.2 (31.0-37.0) g/dL RDW 12.3 (11.5-15.5) % Plt Count 269 (150-450) k/uL MPV 7.0 Neutrophils % 71 % Lymphocytes % 16 % Monocytes % 8 % Eosinophils % 3 % Basophils % 1 % Neutrophils # 4.8 (1.3-7.7) k/uL Lymphocytes # 1.1 (1.0-4.8) k/uL Monocytes # 0.5 (0-1.0) k/uL Eosinophils # 0.2 (0-0.7) k/uL Basophils # 0.0 (0-0.2) k/uL Macrocytosis Slight PT 9.7 (9.0-12.0) sec INR 0.9 (<1.2) APTT 21.2 L (22.0-30.0) sec D-Dimer 0.79 H (<0.60) mg/L FEU Sodium 136 L (137-145) mmol/L Potassium 4.0 (3.5-5.1) mmol/L Chloride 99 (98-107) mmol/L Carbon Dioxide 34 H (22-30) mmol/L Anion Gap 3 mmol/L BUN 25 H (9-20) mg/dL Creatinine 1.21 (0.66-1.25) mg/dL Est GFR (CKD-EPI)AfAm 68 (>60 ml/min/1.73 sqM) Est GFR (CKD-EPI)NonAf 59 (>60 ml/min/1.73 sqM) Glucose 93 (74-99) mg/dL Plasma Lactic Acid Abhishek (0.7-2.0) mmol/L Calcium 9.2 (8.4-10.2) mg/dL Magnesium 2.0 (1.6-2.3) mg/dL Total Bilirubin 0.1 L (0.2-1.3) mg/dL AST 27 (17-59) U/L ALT 17 (4-49) U/L Alkaline Phosphatase 73 (38-126) U/L Troponin I (0.000-0.034) ng/mL NT-Pro-B Natriuret Pep pg/mL Total Protein 6.3 (6.3-8.2) g/dL Albumin 3.7 (3.5-5.0) g/dL Urine Color Urine Appearance (Clear) Urine pH (5.0-8.0) Ur Specific [place] (1.001-1.035) Urine Protein (Negative) Urine Glucose (UA) (Negative) Urine Ketones (Negative) Urine Blood (Negative) Urine Nitrite (Negative) Urine Bilirubin (Negative) Urine Urobilinogen (<2.0) mg/dL Ur Leukocyte Esterase (Negative) 05/23/21 05/23/21 05/23/21 Range/Units 21:42 21:42 21:42 WBC (3.8-10.6) k/uL RBC (4.30-5.90) m/uL Hgb (13.0-17.5) gm/dL Hct (39.0-53.0) % MCV (80.0-100.0) fL MCH (25.0-35.0) pg MCHC (31.0-37.0) g/dL RDW (11.5-15.5) % Plt Count (150-450) k/uL MPV Neutrophils % % Lymphocytes % % Monocytes % % Eosinophils % % Basophils % % Neutrophils # (1.3-7.7) k/uL Lymphocytes # (1.0-4.8) k/uL Monocytes # (0-1.0) k/uL Eosinophils # (0-0.7) k/uL Basophils # (0-0.2) k/uL Macrocytosis PT (9.0-12.0) sec INR (<1.2) APTT (22.0-30.0) sec D-Dimer (<0.60) mg/L FEU Sodium (137-145) mmol/L Potassium (3.5-5.1) mmol/L Chloride (98-107) mmol/L Carbon Dioxide (22-30) mmol/L Anion Gap mmol/L BUN (9-20) mg/dL Creatinine (0.66-1.25) mg/dL Est GFR (CKD-EPI)AfAm (>60 ml/min/1.73 sqM) Est GFR (CKD-EPI)NonAf (>60 ml/min/1.73 sqM) Glucose (74-99) mg/dL Plasma Lactic Acid Abhishek 0.9 (0.7-2.0) mmol/L Calcium (8.4-10.2) mg/dL Magnesium (1.6-2.3) mg/dL Total Bilirubin (0.2-1.3) mg/dL AST (17-59) U/L ALT (4-49) U/L Alkaline Phosphatase (38-126) U/L Troponin I <0.012 (0.000-0.034) ng/mL NT-Pro-B Natriuret Pep pg/mL Total Protein (6.3-8.2) g/dL Albumin (3.5-5.0) g/dL Urine Color Yellow Urine Appearance Clear (Clear) Urine pH 5.0 (5.0-8.0) Ur Specific [place] 1.022 (1.001-1.035) Urine Protein Negative (Negative) Urine Glucose (UA) Negative (Negative) Urine Ketones Negative (Negative) Urine Blood Negative (Negative) Urine Nitrite Negative (Negative) Urine Bilirubin Negative (Negative) Urine Urobilinogen <2.0 (<2.0) mg/dL Ur Leukocyte Esterase Negative (Negative) 04/15/21 Range/Units 21:42 WBC (3.8-10.6) k/uL RBC (4.30-5.90) m/uL Hgb (13.0-17.5) gm/dL Hct (39.0-53.0) % MCV (80.0-100.0) fL MCH (25.0-35.0) pg MCHC (31.0-37.0) g/dL RDW (11.5-15.5) % Plt Count (150-450) k/uL MPV Neutrophils % % Lymphocytes % % Monocytes % % Eosinophils % % Basophils % % Neutrophils # (1.3-7.7) k/uL Lymphocytes # (1.0-4.8) k/uL Monocytes # (0-1.0) k/uL Eosinophils # (0-0.7) k/uL Basophils # (0-0.2) k/uL Macrocytosis PT (9.0-12.0) sec INR (<1.2) APTT (22.0-30.0) sec D-Dimer (<0.60) mg/L FEU Sodium (137-145) mmol/L Potassium (3.5-5.1) mmol/L Chloride (98-107) mmol/L Carbon Dioxide (22-30) mmol/L Anion Gap mmol/L BUN (9-20) mg/dL Creatinine (0.66-1.25) mg/dL Est GFR (CKD-EPI)AfAm (>60 ml/min/1.73 sqM) Est GFR (CKD-EPI)NonAf (>60 ml/min/1.73 sqM) Glucose (74-99) mg/dL Plasma Lactic Acid Abhishek (0.7-2.0) mmol/L Calcium (8.4-10.2) mg/dL Magnesium (1.6-2.3) mg/dL Total Bilirubin (0.2-1.3) mg/dL AST (17-59) U/L ALT (4-49) U/L Alkaline Phosphatase (38-126) U/L Troponin I (0.000-0.034) ng/mL NT-Pro-B Natriuret Pep 252 pg/mL Total Protein (6.3-8.2) g/dL Albumin (3.5-5.0) g/dL Urine Color Urine Appearance (Clear) Urine pH (5.0-8.0) Ur Specific [place] (1.001-1.035) Urine Protein (Negative) Urine Glucose (UA) (Negative) Urine Ketones (Negative) Urine Blood (Negative) Urine Nitrite (Negative) Urine Bilirubin (Negative) Urine Urobilinogen (<2.0) mg/dL Ur Leukocyte Esterase (Negative) - EKG Data EKG shows normal: sinus rhythm, intervals (LA interval 0.15, QRS 0.82, QTC 0.4- 1, ventricular rate of 79; normal sinus rhythm) Disposition Clinical Impression: COPD exacerbation Disposition: ADMITTED IP TO THIS HOSP Condition: Fair Is patient prescribed a controlled substance at d/c from ED?: No Referrals: Adam Ortega Jr, DO [Primary Care Provider] - 1-2 days Decision Date: 04/16/21 Decision Time: 01:05
[2021-04-15 22:15] LABS: Basophils % (A) 1 %; Eosinophils # (A) 0.2 k/uL (0-0.7); Eosinophils % (A) 3 %; HCT 38.3 % (39.0-53.0); HGB 12.7 gm/dL (13.0-17.5); Lymphocytes # (A) 1.1 k/uL (1.0-4.8); Lymphocytes % (A) 16 %; MCH 34.4 pg (25.0-35.0); MCHC 33.2 g/dL (31.0-37.0); MCV 103.6 fL (80.0-100.0); Macrocytosis Slight; Monocytes # (A) 0.5 k/uL (0-1.0); Monocytes % (A) 8 %; Neutrophils # (A) 4.8 k/uL (1.3-7.7); Neutrophils % (A) 71 %; Platelet Count 269 k/uL (150-450); RDW 12.3 % (11.5-15.5); WBC 6.8 k/uL (3.8-10.6)
[2021-04-15 22:18] LABS: Appearance,Urine Clear (Clear); Bilirubin,Urine Negative (Negative); Blood,Urine Negative (Negative); Color,Urine Yellow; Glucose,Urine (UA) Negative (Negative); Ketones,Urine Negative (Negative); Leukocyte Esterase,Urine Negative (Negative); Nitrite,Urine Negative (Negative); Protein,Urine Negative (Negative); Specific Gravity,Urine 1.022 (1.001-1.035); Urobilinogen,Urine <2.0 mg/dL (<2.0)
[2021-04-15 22:35] LABS: Albumin 3.7 g/dL (3.5-5.0); Total Protein 6.3 g/dL (6.3-8.2)
[2021-04-15 22:36] LABS: Calcium 9.2 mg/dL (8.4-10.2); Total Bilirubin 0.1 mg/dL (0.2-1.3)
[2021-04-15 22:37] LABS: INR 0.9 (<1.2); Prothrombin Time 9.7 sec (9.0-12.0)
[2021-04-15 22:38] LABS: Partial Thromboplastin Time 21.2 sec (22.0-30.0)
--- NOTE | 2021-04-15 22:45 | XR ---
EXAMINATION TYPE: XR chest 2V DATE OF EXAM: 04/15/2021 COMPARISON: 04/12/2021 HISTORY: Lung cancer. Short of breath TECHNIQUE: 2 views FINDINGS: Heart is normal. There is some blunting of left costophrenic angle. There is mild pulmonary hyperinflation. There are no hilar masses. There is no heart failure. There are chest leads. IMPRESSION: Small left pleural effusion. COPD. No significant change compared to recent exam.
[2021-04-15 22:51] LABS: D-Dimer 0.79 mg/L FEU (<0.60)
--- NOTE | 2021-04-16 00:40 | CT ---
EXAMINATION TYPE: CT angio chest DATE OF EXAM: 04/16/2021 COMPARISON: 10/26/2020 Thoracic spine is intact. There is 50% wedging of L1 vertebral body. HISTORY: pe Chest pain CT DLP: 323.60 mGycm Automated exposure control for dose reduction was used. CONTRAST: Performed with IV Contrast, patient injected with 80 mL of Isovue 370. Images obtained from the thoracic inlet to the diaphragm with IV contrast. There are 3-D post process ed images. There is pulmonary emphysema. There is 13 mm irregular noncalcified nodule in the posterior right upp er lobe. There is some linear density at the lung bases consistent with subsegmental atelectasis. The re are small bilateral pleural effusions. Heart size is normal. There is no pericardial effusion. There is normal contrast opacification of the pulmonary arteries. There are no filling defects. There are no hilar masses. There is no mediastinal adenopathy. There are some arthritic changes in the antonina ulder joints. IMPRESSION: No evidence of pulmonary embolism. Pulmonary emphysema. There is right upper lobe irregular nodule which is slightly increased compared to 10/26/2020 and foll ow-up is recommended. Tumor is possible. There are small bilateral pleural effusions increased compar ed to old exam.
[2021-04-16] MEDS ORDERED: ACETAMINOPHEN TAB 325 MG TAB PO PRN (01:14)
[2021-04-16] MEDS ORDERED: NALOXONE 0.4 MG/ML 1 ML VIAL IV PRN (01:14)
[2021-04-16] MEDS ORDERED: SODIUM CHLORIDE 0.9% 1,000 ML IV SCH (01:15)
[2021-04-16 07:54] LABS: Basophils % (A) 1 %; Eosinophils # (A) 0.2 k/uL (0-0.7); Eosinophils % (A) 4 %; HCT 33.6 % (39.0-53.0); HGB 11.4 gm/dL (13.0-17.5); Lymphocytes % (A) 17 %; MCH 34.9 pg (25.0-35.0); MCV 102.6 fL (80.0-100.0); Macrocytosis Slight; Monocytes # (A) 0.5 k/uL (0-1.0); Monocytes % (A) 9 %; Neutrophils % (A) 68 %; Platelet Count 244 k/uL (150-450); RBC 3.27 m/uL (4.30-5.90); RDW 12.3 % (11.5-15.5); WBC 5.9 k/uL (3.8-10.6)
[2021-04-16 07:57] LABS: ALT 15 U/L (4-49); AST 25 U/L (17-59); African American GFR (CKD) 75 (>60 ml/min/1.73 sqM); Albumin 3.1 g/dL (3.5-5.0); Albumin/Globulin Ratio 1.2; Alkaline Phosphatase 62 U/L (38-126); Anion Gap 1 mmol/L; Blood Urea Nitrogen 22 mg/dL (9-20); C Reactive Protein 0.6 mg/dL (<1.0); Calcium 8.9 mg/dL (8.4-10.2); Carbon Dioxide 34 mmol/L (22-30); Chloride 100 mmol/L (98-107); Globulin 2.5 g/dL; Glucose 85 mg/dL (74-99); Non-African American GFR(CKD) 65 (>60 ml/min/1.73 sqM); Potassium 3.6 mmol/L (3.5-5.1); Sodium 135 mmol/L (137-145); Total Bilirubin 0.2 mg/dL (0.2-1.3); Total Protein 5.6 g/dL (6.3-8.2)
[2021-04-16] MEDS ORDERED: ALBUTEROL NEBULIZED 2.5 MG/3 ML INHALATION PRN (10:35)
[2021-04-16] MEDS ORDERED: ALBUTEROL HFA INHALER INHALATION PRN (10:35)
--- NOTE | 2021-04-16 10:35 | P.HPIM ---
History of Present Illness H&P Date: 04/16/21 Chief Complaint: GISSELLE Landin is a 75-year-old white male patient, who presented to the emergency room with his . Patient states that he has had increased SOB s for the past 3 weeks. Recently seen in our office and started on Z-Alvin and Medrol Dosepak on Friday this week which he finished. He reported no change.HE is on 1-1/2 L of oxygen at home for his COPD. Patient states was tested for Covid and negative and was also vaccinated. He was here roughly 1 year ago, when he felt this congestion, cough and shortness of breath he had a pericardial effusion, that was a malignant effyusion with no primary. He is being treated for lung cancer, last chemo was 6 weeks ago but they stopped that he could have left inguinal hernia repair surgery 4 weeks ago. Patient states tried to use prior to his chemotherapy again and was told that his URI symptoms prevent him from starting that may need to reschedule. Patient states that he gets very short of breath walking just to the bathroom at home and its getting worse over the past week. Patient denies any chest pain. Patient denies any hematochezia or hematemesis or hemoptysis. He also has a h/o prostatectomy 4 years ago for prosate CA Review of Systems All systems: negative Past Medical History Past Medical History: Cancer (malignat lung ca in pericardial effucion with no specific Primary), COPD, GERD/Reflux, Pneumonia, Prostate Disorder (CA with h/o prstatectomy) Additional Past Medical History / Comment(s): 05/10/20 pericardial effusion with early cardiac tamponade/acute respiratory failure with pericardiocentesis/pneumonia/bilateral leg edema, cancer pericardial sac/chest lymph nodes per pt/spouse-receiving chemotherapy-last time 07/07/20 which was his second dose/has had diarrhea since 2nd dose, vertigo when first standing/syncope, recent anemia with transfusion, lung nodules being monitored and thought possibly scarring from previous pneumonia, prostate cancer with surgery, skin cancer with removals, duodenal ulcer, gastritis, hiatal hernia per 05/18/20 EGD/spouse, severe clausterphobia, 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 and has had falls out of bed, bilateral [place] and tinnitis, past alcoholism per pt but quit drinking 30 plus yrs ago. History of Any Multi-Drug Resistant Organisms: None Reported Past Surgical History: Joint Replacement, Prostate Surgery Additional Past Surgical History / Comment(s): 05/18/20 EGD, colonoscopy, robot assisted laparoscopic prostatectomy with bilateral lymph node dissection, skin cancer removals, rt hip replacement Past Anesthesia/Blood Transfusion Reactions: No Reported Reaction Additional Past Anesthesia/Blood Transfusion Reaction / Comment(s): Claustrophobic. Past Psychological History: No Psychological Hx Reported Smoking Status: Former smoker Past Alcohol Use History: None Reported Past Drug Use History: None Reported - Past Family History Mother Family Medical History: Cancer Additional Family Medical History / Comment(s): breast cancer Father Family Medical History: COPD, Dementia, Musculoskeletal Disorder, Neurologic Disorder Additional Family Medical History / Comment(s): Parkinson's disease, ETOH abuse. Medications and Allergies Home Medications Medication Instructions Recorded Confirmed Type Umeclidinium Brm/Vilanterol Tr 1 puff INHALATION RT-DAILY 03/01/19 04/15/21 History [Anoro Ellipta 62.5-25 Mcg INH] clonazePAM [KlonoPIN] 0.5 mg PO HS 03/01/19 04/15/21 History Albuterol Nebulized [Ventolin 2.5 mg INHALATION RT-QID PRN 05/09/20 04/15/21 History Nebulized] Folic Acid 2 mg PO DAILY 07/13/20 04/15/21 History Chlorthalidone [Hygroton] 25 mg PO DAILY 03/07/21 04/15/21 History Multivitamins, Thera [Multivitamin 1 tab PO DAILY 03/07/21 04/15/21 History (formulary)] Pantoprazole [Protonix] 40 mg PO BID 03/07/21 04/15/21 History Potassium Chloride 20 meq PO QAM 03/07/21 04/15/21 History Albuterol Inhaler [Ventolin Hfa 2 puff INHALATION RT-QID PRN 04/15/21 04/15/21 History Inhaler] Cyanocobalamin (Vitamin B-12) 1,000 mcg PO DAILY 04/15/21 04/15/21 History [Vitamin B-12] Allergies Allergy/AdvReac Type Severity Reaction Status Date / Time Sulfa (Sulfonamide Allergy Unknown Rash/Hives Verified 04/15/21 22:18 Antibiotics) tetracycline Allergy Unknown "Fuzzy Verified 04/15/21 22:18 headed" Physical Exam Vitals: Vital Signs Temp Pulse Resp BP Pulse Ox 04/16/21 06:09 97.9 F 81 16 118/76 95 04/16/21 01:08 98.1 F 86 18 123/75 95 04/16/21 00:29 80 04/16/21 00:18 80 04/15/21 20:37 97.3 F L 84 26 H 144/76 97 Intake and Output 04/15/21 04/16/21 04/16/21 22:59 06:59 14:59 Other: Weight 72.121 kg - Constitutional General appearance: average body habitus - EENT Eyes: EOMI, PERRLA - Neck Neck: no lymphadenopathy, no thyromegaly - Respiratory Respiratory: bilateral: diminished, wheezing - Cardiovascular Rhythm: regular Heart sounds: normal: S1, S2 - Gastrointestinal General gastrointestinal: no hepatomegaly, normal bowel sounds - Neurologic Neurologic: CNII-XII intact - Psychiatric Psychiatric: A&O x's 3 Results CBC & Chem 7: 04/16/21 07:30 04/16/21 07:30 Labs: Abnormal Lab Results - Last 24 Hours (Table) 04/15/21 04/15/21 04/15/21 Range/Units 21:42 21:42 21:42 RBC 3.70 L (4.30-5.90) m/uL Hgb 12.7 L (13.0-17.5) gm/dL Hct 38.3 L (39.0-53.0) % MCV 103.6 H (80.0-100.0) fL APTT 21.2 L (22.0-30.0) sec D-Dimer 0.79 H (<0.60) mg/L FEU Sodium 136 L (137-145) mmol/L Carbon Dioxide 34 H (22-30) mmol/L BUN 25 H (9-20) mg/dL Total Bilirubin 0.1 L (0.2-1.3) mg/dL Total Protein (6.3-8.2) g/dL Albumin (3.5-5.0) g/dL 04/16/21 04/16/21 Range/Units 07:30 07:30 RBC 3.27 L (4.30-5.90) m/uL Hgb 11.4 L (13.0-17.5) gm/dL Hct 33.6 L (39.0-53.0) % MCV 102.6 H (80.0-100.0) fL APTT (22.0-30.0) sec D-Dimer (<0.60) mg/L FEU Sodium 135 L (137-145) mmol/L Carbon Dioxide 34 H (22-30) mmol/L BUN 22 H (9-20) mg/dL Total Bilirubin (0.2-1.3) mg/dL Total Protein 5.6 L (6.3-8.2) g/dL Albumin 3.1 L (3.5-5.0) g/dL Chest x-ray: report reviewed CT scan - chest: report reviewed Thrombosis Risk Factor Assmnt - Choose All That Apply Each Factor Represents 1 point: Abnormal pulmonary function (COPD) Each Risk Factor Represents 2 Points: Malignancy Thrombosis Risk Factor Assessment Total Risk Factor Score: 3 Thrombosis Risk Factor Assessment Level: Moderate Risk Assessment and Plan Plan: acute copd 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
--- NOTE | 2021-04-16 10:45 | P.CRDCN ---
History of Present Illness History of present illness: HISTORY OF PRESENTING ILLNESS This is a pleasant 75-year-old male past medical history significant for COPD, prostatectomy, lung cancer on chemotherapy last treatment 6 weeks ago, history of malignant pericardial effusion s/p pericardial drain, metastatic cancer with lymphadenopathy, anemia, left inguinal hernia repair 4 weeks ago. She does not follow with a pharmacist per diem. He follows with Dr. Trejo. We're being consulted for pleural effusions. Patient states that over the past 3 weeks he's been having increased shortness of breath, cough and congestion. He states that his primary care physician put him on Z-Alvin and Medrol Dosepak on Friday this week which she finished. Patient states that this is similar to about a year ago when he felt this congestion, cough and shortness of breath and he was found to have a pericardial effusion which was drained. He denies chest pain, palpitations, lightheadedness, dizziness, syncope. Patient denies history of coronary artery disease, hypertension, IA, stroke. He currently does not take any home cardiac medications. DIAGNOSTICS Most recent echocardiogram 06/2020 revealed left ventricular systolic function is normal with an EF between 55-60%, mild mitral regurgitation, mild tricuspid regurgitation, no pericardial effusion. EKG reveals sinus rhythm heart rate 79, no significant STT wave abnormalities. Chest xray small left pleural effusion, mild pulmonary hyperinflation COPD. No significant change compared to recent exam. CT chest revealed no evidence of pulmonary embolism. Pulmonary emphysema. There is a right upper lobe irregular nodule which is slightly increased compared to 11/22/2020. Tumor is possible. There are small bilateral pleural effusions increased compared to old exam. Laboratory reviewed, WBC 5.9, hemoglobin 11.4, platelets 244, d-dimer 0.79, sodium 135, potassium 3.6, serum creatinine 1.12, BUN 22, troponin negative 1, proBNP 252, UA negative, COVID-19 negative REVIEW OF SYSTEMS At the time of my exam: CONSTITUTIONAL: Denies fever or chills. CARDIOVASCULAR: Denies chest pain, +shortness of breath, no orthopnea, PND or palpitations. RESPIRATORY: Denies cough. GASTROINTESTINAL: Denies abdominal pain, no constipation, nausea or vomiting. MUSCULOSKELETAL: Denies myalgias. NEUROLOGIC: Denies numbness, tingling or weakness. ENDOCRINE: Denies fatigue, weight change, polydipsia or polyurina. GENITOURINARY: Denies burning, hematuria or urgency with micturation. HEMATOLOGIC: Denies history of anemia or bleeding. PHYSICAL EXAMINATION Blood pressure 118/66 heart rate 81 afebrile and maintaining oxygen saturation 95% on room air CONSTITUTIONAL: Appears short of breath HEENT: Head is normocephalic. Mucous membranes of the mouth are moist. Positive JVD. No carotid bruit. CHEST EXAMINATION: Lungs with bilateral wheezes. No chest wall tenderness is noted on palpation or with deep breathing. HEART EXAMINATION: Regular rate and rhythm. S1, S2 heard. Systolic murmur noted. No gallops or rub. ABDOMEN: Soft, nontender. Positive bowel sounds. EXTREMITIES: 2+ peripheral pulses, no lower extremity edema and no calf tenderness. NEUROLOGIC EXAMINATION: Patient is awake, alert and oriented x3. ASSESSMENT Shortness of Breath for 3 weeks COPD History of lung cancer on chemotherapy last treatment 6 weeks ago History of Prostatectomy 4 weeks ago History of malignant pericardial effusion status post pericardial drain previously Anemia PLAN 2D echocardiogram ordered, will follow up on results. No further cardiac testing from cardiology perspective Further recommendations based on clinical course Past Medical History Past Medical History: Cancer, GERD/Reflux, Pneumonia Additional Past Medical History / Comment(s): 05/10/20 pericardial effusion with early cardiac tamponade/acute respiratory failure with perica rdiocentesis/pneumonia/bilateral leg edema, cancer pericardial sac/chest lymph nodes per pt/spouse-receiving chemotherapy-last time 07/07/20 which was his second dose/has had diarrhea since 2nd dose, vertigo when first standing/syncope, recent anemia with transfusion, lung nodules being monitored and thought possibly scarring from previous pneumonia, prostate cancer with surgery, skin cancer with removals, duodenal ulcer, gastritis, hiatal hernia per 05/18/20 EGD/spouse, severe clausterphobia, 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 and has had falls out of bed, bilateral [place] and tinnitis, past alcoholism per pt but quit drinking 30 plus yrs ago. History of Any Multi-Drug Resistant Organisms: None Reported Past Surgical History: Joint Replacement, Prostate Surgery Additional Past Surgical History / Comment(s): 05/18/20 EGD, colonoscopy, robot assisted laparoscopic prostatectomy with bilateral lymph node dissection, skin cancer removals, rt hip replacement Past Anesthesia/Blood Transfusion Reactions: No Reported Reaction Additional Past Anesthesia/Blood Transfusion Reaction / Comment(s): Claustrophobic. Past Psychological History: No Psychological Hx Reported Smoking Status: Former smoker Past Alcohol Use History: None Reported Past Drug Use History: None Reported - Past Family History Mother Family Medical History: Cancer Additional Family Medical History / Comment(s): breast cancer Father Family Medical History: COPD, Dementia, Musculoskeletal Disorder, Neurologic Disorder Additional Family Medical History / Comment(s): Parkinson's disease, ETOH abuse. Medications and Allergies Home Medications Medication Instructions Recorded Confirmed Type Umeclidinium Brm/Vilanterol Tr 1 puff INHALATION RT-DAILY 03/01/19 04/15/21 History [Anoro Ellipta 62.5-25 Mcg INH] clonazePAM [KlonoPIN] 0.5 mg PO HS 03/01/19 04/15/21 History Albuterol Nebulized [Ventolin 2.5 mg INHALATION RT-QID PRN 05/09/20 04/15/21 History Nebulized] Folic Acid 2 mg PO DAILY 07/13/20 04/15/21 History Chlorthalidone [Hygroton] 25 mg PO DAILY 03/07/21 04/15/21 History Multivitamins, Thera [Multivitamin 1 tab PO DAILY 03/07/21 04/15/21 History (formulary)] Pantoprazole [Protonix] 40 mg PO BID 03/07/21 04/15/21 History Potassium Chloride 20 meq PO QAM 03/07/21 04/15/21 History Albuterol Inhaler [Ventolin Hfa 2 puff INHALATION RT-QID PRN 04/15/21 04/15/21 History Inhaler] Cyanocobalamin (Vitamin B-12) 1,000 mcg PO DAILY 04/15/21 04/15/21 History [Vitamin B-12] Allergies Allergy/AdvReac Type Severity Reaction Status Date / Time Sulfa (Sulfonamide Allergy Unknown Rash/Hives Verified 04/15/21 22:18 Antibiotics) tetracycline Allergy Unknown "Fuzzy Verified 04/15/21 22:18 headed" Physical Exam Vitals: Vital Signs Temp Pulse Resp BP Pulse Ox 04/16/21 06:09 97.9 F 81 16 118/76 95 04/16/21 01:08 98.1 F 86 18 123/75 95 04/16/21 00:29 80 04/16/21 00:18 80 04/15/21 20:37 97.3 F L 84 26 H 144/76 97 Intake and Output 04/15/21 04/16/21 04/16/21 22:59 06:59 14:59 Other: Weight 72.121 kg Results 04/16/21 07:30 04/16/21 07:30 Cardiac Enzymes 04/15/21 04/15/21 04/16/21 Range/Units 21:42 21:42 07:30 AST 27 25 (17-59) U/L Troponin I <0.012 (0.000-0.034) ng/mL Coagulation 04/15/21 Range/Units 21:42 PT 9.7 (9.0-12.0) sec APTT 21.2 L (22.0-30.0) sec CBC 04/15/21 04/16/21 Range/Units 21:42 07:30 WBC 6.8 5.9 (3.8-10.6) k/uL RBC 3.70 L 3.27 L (4.30-5.90) m/uL Hgb 12.7 L 11.4 L (13.0-17.5) gm/dL Hct 38.3 L 33.6 L (39.0-53.0) % Plt Count 269 244 (150-450) k/uL Comprehensive Metabolic Panel 04/15/21 04/16/21 Range/Units 21:42 07:30 Sodium 136 L 135 L (137-145) mmol/L Potassium 4.0 3.6 (3.5-5.1) mmol/L Chloride 99 100 (98-107) mmol/L Carbon Dioxide 34 H 34 H (22-30) mmol/L BUN 25 H 22 H (9-20) mg/dL Creatinine 1.21 1.12 (0.66-1.25) mg/dL Glucose 93 85 (74-99) mg/dL Calcium 9.2 8.9 (8.4-10.2) mg/dL AST 27 25 (17-59) U/L ALT 17 15 (4-49) U/L Alkaline Phosphatase 73 62 (38-126) U/L Total Protein 6.3 5.6 L (6.3-8.2) g/dL Albumin 3.7 3.1 L (3.5-5.0) g/dL Current Medications Generic Name Dose Route Start Last Admin Trade Name Freq PRN Reason Stop Dose Admin Acetaminophen 650 mg 04/16/21 01:14 Acetaminophen Tab 325 Mg Tab PO Q6HR PRN Mild Pain or Fever > 100.5 Naloxone HCl 0.2 mg 04/16/21 01:14 Naloxone 0.4 Mg/Ml 1 Ml Vial IV Q2M PRN Opioid Reversal Intake and Output 04/15/21 04/16/21 04/16/21 22:59 06:59 14:59 Other: Weight 72.121 kg 04/16/21 07:30 04/16/21 07:30
[2021-04-16 11:41] LABS: Erythrocyte Sedimentation Rate 26 mm/Hr (0-20)
--- NOTE | 2021-04-16 13:54 | P.CONS ---
History of Present Illness - Reason for Consult Consult date: 04/16/21 [facility] Requesting physician: Eusebio E Sheet - Chief Complaint shortness of breath - History of Present Illness Mr Lewis is a pleasant white male, initially seen in consultation at [facility] on 05/16/20. The patient had presented with progressive shortness of breath with x-ray showing new small pleural effusions. Patient did have a known history of COPD and smoking. The patient will also noted to have bilateral lower extremity edema with echocardiogram showing ejection fraction in the 40 happened 45% with large pericardial effusion. The patient had percutaneous pericardial drainage of 05/10/20 with cytology positive for metastatic adenocarcinoma, consistent with lung or upper GI primary. Patient had a prior history of prostate cancer with a radical prostatectomy in 03/12. PSA was normal. He had an EGD showing some irregular areas on the duodenum and distal esophagus, with biopsy negative for malignancy. MRI of the abdomen did not show any abnormality in the liver or pancreas. Clinically it was it was therefore felt to be reasonable to treated as a lung primary. Patient had biomarker testing done with NGS, that was negative. he also had a PET scan, that showed uptake only in the mediastinal node, as well as some uptake in nonenlarged right supraclavicular and hilar nodes. he was seen for his first office visit on 06/06/20. he was started on treatment with carboplatin plus Alimta plus Keytruda with cycle 1 on 06/16/20. He is status post 4 cycles The patient was admitted after cycle 2 with marked weakness and syncopal episode. He was found to have dehydration due to diarrhea. Repeat echocardiogram did not show any the reaccumulation of pericardial effusion. The patient did have significant neutropenia during his admission and required growth factor support, though he did not have evidence of infection. He proceeded to C 3 with dose reduction and addition of GCSF. he tolerated cycle 3 overall better. After cycle 4, he again had episodes of diarrhea lasting about 3-4 days with some dizziness and required hydration in the office. he was therefore changed to Alimta plus immunotherapy maintenance after cycle 4, starting on 09/07/20. He is status post 9 cycles. 01/24/21-Pt here for f/u s/p 7 cycles of maintenance Alimta and keytruda. He has complaints of significant shortness of breath with minimal exertion, this is not necessarily new but certainly seems to be somewhat progressive over time. At last visit he was treated for upper respiratory infection with steroids and antibiotics, denies any significant change, not any worse. He was incontinent of urine 2 nights, he fell twice "grayed out", few bloody noses. No other complaints at this time. He is in general weak, lost quite a bit of muscle mass, he is not able to do very much activity. CT scans, at the time of his visit on 02/14/21 had shown new bilateral pleural effusions right greater than left. He had thoracentesis on the right on 02/16/21, which was negative. his treatment was then held for left inguinal hernia surgery, that was performed on 03/12/21. Case was discussed with General surgery to ensure proper scheduling. Patient then resumed immunotherapy alone on 03/22/21. Recently seen in office He denied any fever/chills/nausea/vomiting. shortness of breath and cough have not recovered significantly. he continues to have leg swelling off and on.He has had some taste alteration, which is tolerable. He continues to have dizziness on standing up from laying or sitting down. He had another recent fall as a result. The patient is managing better with extra care on standing up after s itting or lying down. He also c/o bloating and burping, improved with Protonix BID. He is status post Immune therapy and almta on Keytruda first week of March, and neulasta. He presented to the hospital with complaints of increased shortness of breath, cough, URI sx. He was treated with z pack and medrol dose pack as outpatient. COVID Negative. CT chest showed no evidence of any pulmonary embolism. Did report emphysematous changes bilaterally. Reported increased (slightly) right upper lobe density compared to the earlier CAT scan from October 2020. MRI of the brain on 03/30/2021 showed cerebral atrophy without any evidence of metastatic disease. Review of Systems All systems: negative Constitutional: Reports as per HPI Past Medical History Past Medical History: Cancer, GERD/Reflux, Pneumonia Additional Past Medical History / Comment(s): 05/10/20 pericardial effusion with early cardiac tamponade/acute respiratory failure with pericardiocentesis/pn eumonia/bilateral leg edema, cancer pericardial sac/chest lymph nodes per pt/spouse-receiving chemotherapy-last time approximately 6 weeks ago/on hold for recent hernia surgery/then URI, past vertigo when first standing/syncope pt states d/t electrolyte disturbance, anemia with transfusions, lung nodules being monitored and thought possibly scarring from previous pneumonia, prostate cancer with surgery, skin cancer with removals, gastritis, hiatal hernia, severe clausterphobia, 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 and has had past falls out of bed, bilateral [place] and tinnitis, past alcoholism per pt but quit drinking 31 plus yrs ago. History of Any Multi-Drug Resistant Organisms: None Reported Past Surgical History: Joint Replacement, Prostate Surgery Additional Past Surgical History / Comment(s): 03/12/21 inguinal hernia surgery, 05/18/20 EGD, colonoscopy, robot assisted laparoscopic prostatectomy with bilateral lymph node dissection, skin cancer removals, rt hip replacement Past Anesthesia/Blood Transfusion Reactions: No Reported Reaction Additional Past Anesthesia/Blood Transfusion Reaction / Comm: Claustrophobic. Smoking Status: Former smoker - Past Family History Mother Family Medical History: Cancer Additional Family Medical History / Comment(s): breast cancer, Etoh abuse. Father Family Medical History: COPD, Dementia, Musculoskeletal Disorder, Neurologic Disorder Additional Family Medical History / Comment(s): parkinson's, ETOH abuse Medications and Allergies Home Medications Medication Instructions Recorded Confirmed Type Umeclidinium Brm/Vilanterol Tr 1 puff INHALATION RT-DAILY 03/01/19 04/15/21 History [Anoro Ellipta 62.5-25 Mcg INH] clonazePAM [KlonoPIN] 0.5 mg PO HS 03/01/19 04/15/21 History Albuterol Nebulized [Ventolin 2.5 mg INHALATION RT-QID PRN 05/09/20 04/15/21 History Nebulized] Folic Acid 2 mg PO DAILY 07/13/20 04/15/21 History Chlorthalidone [Hygroton] 25 mg PO DAILY 03/07/21 04/15/21 History Multivitamins, Thera [Multivitamin 1 tab PO DAILY 03/07/21 04/15/21 History (formulary)] Pantoprazole [Protonix] 40 mg PO BID 03/07/21 04/15/21 History Potassium Chloride 20 meq PO QAM 03/07/21 04/15/21 History Albuterol Inhaler [Ventolin Hfa 2 puff INHALATION RT-QID PRN 04/15/21 04/15/21 History Inhaler] Cyanocobalamin (Vitamin B-12) 1,000 mcg PO DAILY 04/15/21 04/15/21 History [Vitamin B-12] Allergies Allergy/AdvReac Type Severity Reaction Status Date / Time Sulfa (Sulfonamide Allergy Unknown Rash/Hives Verified 04/15/21 22:18 Antibiotics) tetracycline Allergy Unknown "Fuzzy Verified 04/15/21 22:18 headed" Physical Exam Vitals: Vital Signs Temp Pulse Resp BP Pulse Ox 04/16/21 11:00 87 20 123/77 95 04/16/21 06:09 97.9 F 81 16 118/76 95 04/16/21 01:08 98.1 F 86 18 123/75 95 04/16/21 00:29 80 04/16/21 00:18 80 04/15/21 20:37 97.3 F L 84 26 H 144/76 97 Intake and Output 04/15/21 04/16/21 04/16/21 22:59 06:59 14:59 Other: Weight 72.121 kg 72.121 kg - Constitutional General appearance: cooperative, no acute distress - EENT Eyes: EOMI, PERRLA ENT: NA/AT, normal oropharynx - Neck Neck: normal ROM - Respiratory Respiratory: bilateral: diminished, rhonchi - Gastrointestinal General gastrointestinal: soft - Integumentary Integumentary: pale - Neurologic Neurologic: CNII-XII intact - Musculoskeletal Musculoskeletal: generalized weakness, strength equal bilaterally - Psychiatric Psychiatric: A&O x's 3, appropriate affect, intact judgment & insight Results CBC & Chem 7: 04/16/21 07:30 04/16/21 07:30 Labs: Abnormal Lab Results - Last 24 Hours (Table) 04/15/21 04/15/21 04/15/21 Range/Units 21:42 21:42 21:42 RBC 3.70 L (4.30-5.90) m/uL Hgb 12.7 L (13.0-17.5) gm/dL Hct 38.3 L (39.0-53.0) % MCV 103.6 H (80.0-100.0) fL ESR (0-20) mm/Hr APTT 21.2 L (22.0-30.0) sec D-Dimer 0.79 H (<0.60) mg/L FEU Sodium 136 L (137-145) mmol/L Carbon Dioxide 34 H (22-30) mmol/L BUN 25 H (9-20) mg/dL Total Bilirubin 0.1 L (0.2-1.3) mg/dL Total Protein (6.3-8.2) g/dL Albumin (3.5-5.0) g/dL 04/16/21 04/16/21 Range/Units 07:30 07:30 RBC 3.27 L (4.30-5.90) m/uL Hgb 11.4 L (13.0-17.5) gm/dL Hct 33.6 L (39.0-53.0) % MCV 102.6 H (80.0-100.0) fL ESR 26 H (0-20) mm/Hr APTT (22.0-30.0) sec D-Dimer (<0.60) mg/L FEU Sodium 135 L (137-145) mmol/L Carbon Dioxide 34 H (22-30) mmol/L BUN 22 H (9-20) mg/dL Total Bilirubin (0.2-1.3) mg/dL Total Protein 5.6 L (6.3-8.2) g/dL Albumin 3.1 L (3.5-5.0) g/dL CT scan - chest: report reviewed Assessment and Plan (1) COPD exacerbation Current Visit: Yes Status: Acute Code(s): J44.1 - CHRONIC OBSTRUCTIVE PULMONARY DISEASE W (ACUTE) EXACERBATION SNOMED Code(s): 919230764 (2) Adenocarcinoma Current Visit: No Status: Chronic Priority: High Code(s): C80.1 - MALIGNANT (PRIMARY) NEOPLASM, UNSPECIFIED SNOMED Code(s): 005320766 Plan: Pulmonary is following Continue supportive care Hold chemo and re-evaluate after hospitalization for possible treatment change Hold Immune therapy: ?component of ILD pneumonitis Thank you for consult we will follow along.
[2021-04-16] MEDS: FOLIC ACID 1 MG TAB PO SCH (14:09)
[2021-04-16] MEDS: CHLORTHALIDONE 25 MG TAB PO SCH (14:10)
[2021-04-16] MEDS: methylPREDNISolone SOD SUCCI 125 MG/2 ML VIAL IV SCH ×2 (14:10→17:31)
[2021-04-16] MEDS: CYANOCOBALAMIN 500 MCG TAB PO SCH (14:10)
[2021-04-16] MEDS: POTASSIUM CHLORIDE ER 20 MEQ TAB.ER PO SCH (14:10)
[2021-04-16] MEDS: PANTOPRAZOLE 40 MG TABLET PO SCH ×2 (14:10→17:25)
[2021-04-16] MEDS: MULTIVITAMINS, THERA 1 EACH TAB PO SCH (14:12)
[2021-04-16] MEDS ORDERED: IPRATROPIUM-ALBUTEROL 3 ML NEB INHALATION PRN (14:46)
--- NOTE | 2021-04-16 14:47 | P.CNPUL ---
History of Present Illness Consult date: 04/16/21 Reason for consult: dyspnea, chest pain History of present illness: Is a 75-year-old male patient with known history of metastatic adenocarcinoma of the lungs with previous history of a malignant pericardial effusion requiring a pericardial fluid drainage through a pericardiocentesis back in April 2020 and the fluid was malignant. At that time the patient was in early cardiac tamponade physiology. Note that the patient was further worked up with an EGD and colonoscopy and GI source of malignancy were essentially ruled out. The patient was subsequently found to have a right upper lobe spiculated mass consistent with his primary malignancy. The patient underwent systemic chemotherapy that was started on 07/07/2020. The patient [place]-based regimen and alimta and immunotherapy. He has been followed up with Dr. MORALES. The patient was admitted yesterday to the hospital because of chest congestion and shortness of breath. He had symptoms of URI and he had seen his primary care physician and he was given a course of Z-Alvin and a Medrol Dosepak which she finished. He was using oxygen at 1.5 L nasal cannula. His COVID-19 testing was negative and the patient has not received his vaccination. The patient had a computed tomography scan of the chest that was done in the emergency department that showed no evidence of any pulmonary embolism. The patient has advanced emphysematous changes bilaterally. In addition, the spiculated density in the right upper lobe was again seen measuring 50 mm in size and this was an irregular noncalcified nodule in the posterior right upper lobe. This is slightly increased in size compared to the earlier CAT scan from October 2020. Note that the patient as part of his workup has undergone a CAT scan of the chest abdomen and pelvis on 02/07/2021 that showed COPD, stable bilateral pulmo nary nodules, a moderate severe endplate compression fracture of the L1 and left inguinal hernia. His MRI of the brain that was done on 03/30/2021 showed cerebral atrophy without any evidence of metastatic disease. Is out of work from this current admission is showing a white cell count of 5.9 with hemoglobin of 11.4. Sed rate is 26. ProBNP level was 252. Troponin was negative 1. LFTs were normal. Electrolytes were essentially normal. He is a serum bicarb of 34 consistent with chronic metabolic alkalosis. UA was negative. COVID-19 testing was negative. D-dimer was 0.79 and a normal coagulation profile was also seen. Review of Systems Constitutional: Reports fatigue Eyes: denies as per HPI, denies blurred vision, denies bulging eye, denies decreased vision, denies diplopia, denies discharge, denies dry eye, denies irritation, denies itching, denies pain, denies photophobia, denies loss of peripheral vision, denies loss of vision, denies tunnel vision/blind spots Ears: deny: decreased hearing, ear discharge, earache, tinnitus Ears, nose, mouth and throat: Reports as per HPI Cardiovascular: Reports decreased exercise tolerance, Reports dyspnea on exertion Respiratory: Reports congestion, Reports cough, Reports dyspnea, Reports home oxygen, Reports wheezing Gastrointestinal: Reports as per HPI Genitourinary: Reports as per HPI Musculoskeletal: Reports as per HPI Musculoskeletal: absent: ankle pain, ankle stiffness, ankle swelling, as per HPI, elbow pain, elbow stiffness, elbow swelling, foot pain, foot stiffness, foot swelling, hand pain, hand stiffness, hand swelling, hip pain, hip stiffness, hip swelling, knee pain, knee stiffness, knee swelling, shoulder pain, shoulder stiffness, shoulder swelling, wrist pain, wrist stiffness, wrist swelling Integumentary: Reports as per HPI Neurological: Reports as per HPI Psychiatric: Reports as per HPI Endocrine: Reports as per HPI Hematologic/Lymphatic: Reports as per HPI Allergic/Immunologic: Reports as per HPI Past Medical History Past Medical History: Cancer, COPD, GERD/Reflux Additional Past Medical History / Comment(s): Stage IV adenocarcinoma of the lung with history of malignant pericardial effusion post pericardiocentesis that was done on 05/10/2020 followed by systemic treatment with chemotherapy, history of vertigo, history of chronic anemia, history of REM behavioral disorder, claustrophobia, hard of hearing, tinnitus, previous history of alcoholism, advanced COPD History of Any Multi-Drug Resistant Organisms: None Reported Past Surgical History: Joint Replacement, Prostate Surgery Additional Past Surgical History / Comment(s): 03/12/21 inguinal hernia surgery, 05/18/20 EGD, colonoscopy, robot assisted laparoscopic prostatectomy with bilat eral lymph node dissection, skin cancer removals, rt hip replacement Past Anesthesia/Blood Transfusion Reactions: No Reported Reaction Additional Past Anesthesia/Blood Transfusion Reaction / Comment(s): Claustrophobic. Smoking Status: Former smoker - Past Family History Mother Family Medical History: Cancer Additional Family Medical History / Comment(s): breast cancer, Etoh abuse. Father Family Medical History: COPD, Dementia, Musculoskeletal Disorder, Neurologic Disorder Additional Family Medical History / Comment(s): parkinson's, ETOH abuse Medications and Allergies Home Medications Medication Instructions Recorded Confirmed Type Umeclidinium Brm/Vilanterol Tr 1 puff INHALATION RT-DAILY 03/01/19 04/15/21 History [Anoro Ellipta 62.5-25 Mcg INH] clonazePAM [KlonoPIN] 0.5 mg PO HS 03/01/19 04/15/21 History Albuterol Nebulized [Ventolin 2.5 mg INHALATION RT-QID PRN 05/09/20 04/15/21 History Nebulized] Folic Acid 2 mg PO DAILY 07/13/20 04/15/21 History Chlorthalidone [Hygroton] 25 mg PO DAILY 03/07/21 04/15/21 History Multivitamins, Thera [Multivitamin 1 tab PO DAILY 03/07/21 04/15/21 History (formulary)] Pantoprazole [Protonix] 40 mg PO BID 03/07/21 04/15/21 History Potassium Chloride 20 meq PO QAM 03/07/21 04/15/21 History Albuterol Inhaler [Ventolin Hfa 2 puff INHALATION RT-QID PRN 04/15/21 04/15/21 History Inhaler] Cyanocobalamin (Vitamin B-12) 1,000 mcg PO DAILY 04/15/21 04/15/21 History [Vitamin B-12] Allergies Allergy/AdvReac Type Severity Reaction Status Date / Time Sulfa (Sulfonamide Allergy Unknown Rash/Hives Verified 04/15/21 22:18 Antibiotics) tetracycline Allergy Unknown "Fuzzy Verified 04/15/21 22:18 headed" Physical Exam Vitals: Vital Signs Temp Pulse Pulse Resp BP BP Pulse Ox 04/16/21 13:53 97.8 F 78 21 141/82 96 04/16/21 11:00 87 20 123/77 95 04/16/21 06:09 97.9 F 81 16 118/76 95 04/16/21 01:08 98.1 F 86 18 123/75 95 04/16/21 00:29 80 04/16/21 00:18 80 04/15/21 20:37 97.3 F L 84 26 H 144/76 97 Intake and Output 04/15/21 04/16/21 04/16/21 22:59 06:59 14:59 Other: Weight 72.121 kg 72.121 kg Gen. appearance the patient is calm comfortable, mild degree of respiratory distress, has audible wheezing. Head exam was generally normal. There was no scleral icterus or corneal arcus. Mucous membranes were moist. Neck was supple and without jugular venous distension, thyromegaly, or carotid bruits. Carotids were easily palpable bilaterally. There was no adenopathy. Lungs sounds are diminished and the patient is diffuse expiratory wheezes throughout the lung coronel bilaterally and the patient is prolongation of the exhalation phase of breathing Cardiac exam revealed the PMI to be normally situated and sized. The rhythm was regular and no extrasystoles were noted during several minutes of auscultation. The first and second heart sounds were normal and physiologic splitting of the second heart sound was noted. There were no murmurs, rubs, clicks, or gallops. Abdominal exam revealed normal bowel sounds. The abdomen was soft, non-tender, and without masses, organomegaly, or appreciable enlargement of the abdominal aorta. Examination of the extremities revealed easily palpable radial, femoral and pedal pulses. There was no cyanosis, clubbing or edema. Examination of the skin revealed no evidence of significant rashes, suspicious appearing nevi or other concerning lesions. Neurologically, the patient is awake and alert and the patient does not have any focal neurological deficit. Cranial nerves are essentially intact. Results - Laboratory Findings CBC and BMP: 04/16/21 07:30 04/16/21 07:30 PT/INR, D-dimer PT 9.7 sec (9.0-12.0) 04/15/21 21:42 INR 0.9 (<1.2) 04/15/21 21:42 D-Dimer 0.79 mg/L FEU (<0.60) H 04/15/21 21:42 Abnormal lab findings: Abnormal Labs 04/15/21 04/15/21 04/15/21 21:42 21:42 21:42 RBC 3.70 L Hgb 12.7 L Hct 38.3 L MCV 103.6 H ESR APTT 21.2 L D-Dimer 0.79 H Sodium 136 L Carbon Dioxide 34 H BUN 25 H Total Bilirubin 0.1 L Total Protein Albumin 04/16/21 04/16/21 07:30 07:30 RBC 3.27 L Hgb 11.4 L Hct 33.6 L MCV 102.6 H ESR 26 H APTT D-Dimer Sodium 135 L Carbon Dioxide 34 H BUN 22 H Total Bilirubin Total Protein 5.6 L Albumin 3.1 L - Diagnostic Findings Chest x-ray: image reviewed CT scan - chest: image reviewed Assessment and Plan Plan: 1 acute COPD exacerbation with secondary shortness of breath. No evidence of any pneumonia 2 severe COPD with a baseline FEV1 of 34% of predicted based on the spirometry that was done back in 2018. At the same time, the patient had a diffusion capacity of 45% and the patient has been oxygen dependent on 2 L overnight and he has been utilizing Anoro one inhalation on outpatient basis in addition to DuoNeb nebulized treatments on the clock as needed 3 metastatic adenocarcinoma of the lung with a history of malignant pericardial effusion, the patient has received systemic chemotherapy, [place] and [place]-based regimen in addition to Alimta and keytruda other the patient's malignancy has been essentially stable and the patient had some mild increase in the right upper lobe spiculated density currently measuring 13 mm in size. No major abnormalities otherwise 4 REM behavioral disorder maintained on Klonopin on outpatient basis 5 inguinal hernia, surgically repaired 6 history of prostate cancer 7 diverticular disease 8 history of smoking 9 obstructive sleep apnea, mild, AHI of 6, not receiving any CPAP therapy Plan DuoNeb the blood she was [id number] Add a combination of Perforomist and Pulmicort nebulized treatments twice a day IV Solu Medrol 60 mg every 6 hours IV Rocephin Resume home medications We'll continue to follow
[2021-04-16] MEDS: IPRATROPIUM 0.5 MG/2.5 ML NEBU INHALATION SCH ×2 (15:48→15:50)
[2021-04-16] MEDS: IPRATROPIUM-ALBUTEROL 3 ML NEB INHALATION SCH ×2 (15:53→20:36)
--- NOTE | 2021-04-16 16:51 | ECHOF ---
Referral Reason:cp MEASUREMENTS -------- HEIGHT: 182.9 cm WEIGHT: 72.1 kg BP: 118/76 IVSd: 1.1 cm (0.6 - 1.1) LVIDd: 4.1 cm (3.9 - 5.3) LVPWd: 1.5 cm (0.6 - 1.1) EDV(Teich): 76 ml IVSs: 1.4 cm LVIDs: 2.4 cm LVPWs: 1.7 cm %IVS Thck: 31 % ESV(Teich): 21 ml EF(Teich): 72 % %FS: 41 % SV(Teich): 55 ml RVIDd: 3.0 cm (< 3.3) Ao Diam: 3.2 cm (2.0 - 3.7) AV Cusp: 1.6 cm (1.5 - 2.6) MV E Rafael: 0.39 m/s MV DecT: 291 ms MV Dec Hernando: 1.3 m/s MV A Rafael: 0.68 m/s MV E/A Ratio: 0.58 MV PHT: 84 ms TR Vmax: 1.59 m/s TR maxP.17 mmHg RAP: 5.00 mmHg RVSP: 15.17 mmHg FINDINGS -------- Sinus rhythm. This was a technically adequate study. LV size, wall thickness and systolic function are normal, with an EF greater than 55%. The left toya tricular size is normal. The right ventricle is normal in size. The left atrial size is normal. The right atrial size is normal. The aortic valve is trileaflet, and appears structurally normal. No aortic stenosis or regurgitation. Mild mitral regurgitation is present. Mild tricuspid regurgitation present. Right ventricular systolic pressure is normal at < 35 mmHg. The pulmonic valve was not well visualized. The aortic root size is normal. There is a trivial pericardial effusion present. CONCLUSIONS -------- 1. LV size, wall thickness and systolic function are normal, with an EF greater than 55%. 2. The left ventricular size is normal. 3. The right ventricle is normal in size. 4. The left atrial size is normal. 5. The right atrial size is normal. 6. The aortic valve is trileaflet, and appears structurally normal. No aortic stenosis or regurgitati on. 7. Mild mitral regurgitation is present. 8. Mild tricuspid regurgitation present. 9. The pulmonic valve was not well visualized. 10. The aortic root size is normal. 11. There is a trivial pericardial effusion present. MARINE UNDERWRITER: Daria Hendrickson RDCS
[2021-04-16 17:20] LABS: Glucose,Whole Blood 126 mg/dL (75-99)
[2021-04-16 19:57] LABS: Glucose,Whole Blood 174 mg/dL (75-99)
[2021-04-16] MEDS ORDERED: FORMOTEROL FUMARATE 20 MCG/2 ML NEBU INHALATION SCH (20:00)
[2021-04-16] MEDS: FORMOTEROL FUMARATE 20 MCG/2 ML NEBU INHALATION SCH (20:36)
[2021-04-16] MEDS: BUDESONIDE 1 MG/2 ML NEBU INHALATION SCH (20:36)
[2021-04-16] MEDS: clonazePAM 0.5 MG TAB PO SCH (21:00)
[2021-04-17] MEDS: methylPREDNISolone SOD SUCCI 125 MG/2 ML VIAL IV SCH ×5 (00:33→23:57)
[2021-04-17 06:21] LABS: Basophils % (A) 0 %; Eosinophils % (A) 0 %; HCT 34.2 % (39.0-53.0); HGB 11.6 gm/dL (13.0-17.5); Lymphocytes # (A) 0.3 k/uL (1.0-4.8); Lymphocytes % (A) 9 %; MCH 34.4 pg (25.0-35.0); MCHC 33.8 g/dL (31.0-37.0); MCV 101.9 fL (80.0-100.0); Mean Platelet Volume 7.3; Monocytes # (A) 0.2 k/uL (0-1.0); Monocytes % (A) 4 %; Neutrophils # (A) 3.5 k/uL (1.3-7.7); Neutrophils % (A) 87 %; Platelet Count 226 k/uL (150-450); RBC 3.36 m/uL (4.30-5.90); RDW 12.3 % (11.5-15.5)
[2021-04-17 07:09] LABS: Glucose,Whole Blood 130 mg/dL (75-99)
[2021-04-17] MEDS: CHLORTHALIDONE 25 MG TAB PO SCH (08:23)
[2021-04-17] MEDS: MULTIVITAMINS, THERA 1 EACH TAB PO SCH (08:23)
[2021-04-17] MEDS: CYANOCOBALAMIN 500 MCG TAB PO SCH (08:23)
[2021-04-17] MEDS: POTASSIUM CHLORIDE ER 20 MEQ TAB.ER PO SCH (08:23)
[2021-04-17] MEDS: FOLIC ACID 1 MG TAB PO SCH (08:23)
[2021-04-17] MEDS: PANTOPRAZOLE 40 MG TABLET PO SCH ×2 (08:24→17:15)
[2021-04-17] MEDS: FORMOTEROL FUMARATE 20 MCG/2 ML NEBU INHALATION SCH ×2 (08:28→20:38)
[2021-04-17] MEDS: BUDESONIDE 1 MG/2 ML NEBU INHALATION SCH ×2 (08:28→20:38)
[2021-04-17] MEDS: IPRATROPIUM-ALBUTEROL 3 ML NEB INHALATION SCH ×4 (08:28→20:39)
--- NOTE | 2021-04-17 10:32 | P.PN ---
Subjective HISTORY OF PRESENTING ILLNESS This is a pleasant 75-year-old male past medical history significant for COPD, prostatectomy, lung cancer on chemotherapy last treatment 6 weeks ago, history of malignant pericardial effusion s/p pericardial drain, metastatic cancer with lymphadenopathy, anemia, left inguinal hernia repair 4 weeks ago. 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 He follows with Dr. Trejo. We're being consulted for pleural effusions. Patient states that over the past 3 weeks he's been having increased shortness of breath, cough and congestion. He states that his primary care physician put him on Z-Alvin and Medrol Dosepak on Friday this week which she finished. Patient states that this is similar to about a year ago when he felt this congestion, cough and shortness of breath and he was found to have a pericardial effusion which was drained. He denies chest pain, palpitations, lightheadedness, dizziness, syncope. Patient denies history of coronary artery disease, hypertension, NH, stroke. He currently does not take any home cardiac medications. DIAGNOSTICS Most recent echocardiogram 06/2020 revealed left ventricular systolic function is normal with an EF between 55-60%, mild mitral regurgitation, mild tricuspid regurgitation, no pericardial effusion. EKG reveals sinus rhythm heart rate 79, no significant STT wave abnormalities. Chest xray small left pleural effusion, mild pulmonary hyperinflation COPD. No significant change compared to recent exam. CT chest revealed no evidence of pulmonary embolism. Pulmonary emphysema. There is a right upper lobe irregular nodule which is slightly increased compared to 11/22/2020. Tumor is possible. There are small bilateral pleural effusions increased compared to old exam. 04/17/2021: Patient seen and examined at bedside, no acute distress. No complaints at this time. BP 118/64, heart rate 70, afebrile, oxygen saturation is 90% room air and then was placed on 2 L nasal cannula. Laboratory reviewed, WBC 4.0, hemoglobin 11.6, platelets 226. BMP and magnesium no results yet. Patient currently being maintained on chlorthalidone 25 mg daily, potassium chloride 20 mEq daily. Echocardiogram revealed LV size, wall thickness and systolic function are normal with an EF greater than 55%, mild mitral regurgitation, mild tricuspid regurgitation, trivial pericardial effusion PHYSICAL EXAMINATION Blood pressure 118/66 heart rate 81 afebrile and maintaining oxygen saturation 95% on room air CONSTITUTIONAL: No acute distress, resting comfortably. HEENT: Head is normocephalic. Mucous membranes of the mouth are moist. Positive JVD. No carotid bruit. CHEST EXAMINATION: Lungs with bilateral wheezes in the bases. HEART EXAMINATION: Regular rate and rhythm. S1, S2 heard. Systolic murmur noted. No gallops or rub. ABDOMEN: Soft, nontender. Positive bowel sounds. EXTREMITIES: 2+ peripheral pulses, no lower extremity edema and no calf tenderness. NEUROLOGIC EXAMINATION: Patient is awake, alert and oriented x3. ASSESSMENT Shortness of Breath for 3 weeks COPD History of lung cancer on chemotherapy last treatment 6 weeks ago History of Prostatectomy 4 weeks ago History of malignant pericardial effusion status post pericardial drain previously Anemia PLAN 2D echocardiogram reviewed No further cardiac testing from cardiology perspective We will sign off at this time. Please reach out with any further questions or concerns Objective - Vital Signs Vital signs: Vital Signs Temp 98.1 F 04/17/21 05:00 Pulse 78 04/17/21 08:48 Resp 16 04/17/21 05:00 BP 118/64 04/17/21 05:00 Pulse Ox 90 L 04/17/21 05:00 Intake & Output 04/16/21 04/17/21 04/17/21 18:59 06:59 18:59 Intake Total 540 0 Balance 540 0 Weight 72.121 kg Intake: Intake, IV Titration 0 Amount Sodium Chloride 0.9% 1, 0 000 ml @ 75 mls/hr IV . [id number] [facility] Rx#:[id number] Oral 540 Other: Voiding Method Toilet Toilet Toilet - Labs CBC & Chem 7: 04/17/21 05:55 04/16/21 07:30 Labs: Abnormal Lab Results - Last 24 Hours (Table) 04/16/21 04/16/21 04/16/21 Range/Units 07:30 17:18 19:56 RBC (4.30-5.90) m/uL Hgb (13.0-17.5) gm/dL Hct (39.0-53.0) % MCV (80.0-100.0) fL Lymphocytes # (1.0-4.8) k/uL ESR 26 H (0-20) mm/Hr POC Glucose (mg/dL) 126 H 174 H (75-99) mg/dL 04/17/21 04/17/21 Range/Units 05:55 07:08 RBC 3.36 L (4.30-5.90) m/uL Hgb 11.6 L (13.0-17.5) gm/dL Hct 34.2 L (39.0-53.0) % MCV 101.9 H (80.0-100.0) fL Lymphocytes # 0.3 L (1.0-4.8) k/uL ESR (0-20) mm/Hr POC Glucose (mg/dL) 130 H (75-99) mg/dL
[2021-04-17 11:13] LABS: Glucose,Whole Blood 162 mg/dL (75-99)
--- NOTE | 2021-04-17 13:12 | P.PN ---
Subjective Progress Note Date: 04/17/21 Mushtaq is a 75-year-old white male patient, who presented to the emergency room with his . Patient states that he has had increased SOB s for the past 3 weeks. Recently seen in our office and started on Z-Alvin and Medrol Dosepak on Friday this week which he finished. He reported no change.HE is on 1-1/2 L of oxygen at home for his COPD. Patient states was tested for Covid and negative and was also vaccinated. He was here roughly 1 year ago, when he felt this congestion, cough and shortness of breath he had a pericardial effusion, that was a malignant effyusion with no primary. He is being treated for lung cancer, last chemo was 6 weeks ago but they stopped that he could have left inguinal h ernia repair surgery 4 weeks ago. Patient states tried to use prior to his chemotherapy again and was told that his URI symptoms prevent him from starting that may need to reschedule. Patient states that he gets very short of breath walking just to the bathroom at home and its getting worse over the past week. Patient denies any chest pain. Patient denies any hematochezia or hematemesis or hemoptysis. He also has a h/o prostatectomy 4 years ago for prosate CA 04/17/21 echo reported normal LV function, EF greater than 55%. Continues on Rocephin, nebulized bronchodilators [id number] , IV steroids. Maintaining O2 sats of 90% on room air. Less wheezing. Blood sugars controlled. Has been up ambulating in the room, positive bowel movement. BMP pending. Objective - Vital Signs Vital signs: Vital Signs Temp 98 F 04/17/21 11:04 Pulse 85 04/17/21 12:09 Resp 18 04/17/21 11:04 BP 123/76 04/17/21 11:04 Pulse Ox 98 04/17/21 11:04 Intake & Output 04/16/21 04/17/21 04/17/21 18:59 06:59 18:59 Intake Total 540 0 Balance 540 0 Weight 72.121 kg Intake: Intake, IV Titration 0 Amount Sodium Chloride 0.9% 1, 0 000 ml @ 75 mls/hr IV . [id number] [facility] Rx#:[id number] Oral 540 Other: Voiding Method Toilet Toilet Toilet - Exam PHYSICAL EXAM: VITAL SIGNS: [As above] GENERAL: Sitting up in bed, no acute distress HEENT: Conjunctivae normal. eyes normal. NECK: Supple, No JVD. No thyroid enlargement. No LNs CARDIOVASCULAR: S1, S2 regular.No murmur RESPIRATION: Breath sounds diminished in the bases. No rhonchi or crackles. Less Scattered Expiratory wheezing ABDOMEN: Soft, nontender . No guarding. no masses palpable.Bowel sounds heard. LEGS: Trace edema. no calf tenderness. PSYCHIATRY: Alert and oriented X3, mood and affect normal. NERVOUS SYSTEM: Cranial N 2-12 grossly normal. Moves all 4 limbs. No focal deficits. Strength and sensation grossly intact.. Skin: Warm and dry, no rash - Labs CBC & Chem 7: 04/17/21 05:55 04/16/21 07:30 Labs: Abnormal Lab Results - Last 24 Hours (Table) 04/16/21 04/16/21 04/17/21 Range/Units 17:18 19:56 05:55 RBC 3.36 L (4.30-5.90) m/uL Hgb 11.6 L (13.0-17.5) gm/dL Hct 34.2 L (39.0-53.0) % MCV 101.9 H (80.0-100.0) fL Lymphocytes # 0.3 L (1.0-4.8) k/uL POC Glucose (mg/dL) 126 H 174 H (75-99) mg/dL 04/17/21 04/17/21 Range/Units 07:08 11:12 RBC (4.30-5.90) m/uL Hgb (13.0-17.5) gm/dL Hct (39.0-53.0) % MCV (80.0-100.0) fL Lymphocytes # (1.0-4.8) k/uL POC Glucose (mg/dL) 130 H 162 H (75-99) mg/dL Assessment and Plan Assessment: acute copd exacerbation in a patient with history of severe COPD h/o metastatic adenocarcinoma in pericardial fluid suspect primary lung cA wih no specific site in active chemoptherapy h/o prostate CA macrocytic anemia dehydration, mild hypoproteinemia Obstructive sleep apnea, mild Plan: Continue on current medication regime ,monitoring and symptomatic treatment. BMP pending. Heparin for DVT prophylaxis if okay with oncology. Patient reports he is scheduled to restart chemo on . maintain antibiotics, nebulized bronchodilators ATC, steroids. Follow closely with pulmonary. The impression and plan of care has been dictated as directed. : I performed a history and examination of this patient, discussed the same with the dictator. I agree with the dictator's note ,documented as a scribe. Any additional findings or plans will be noted.
--- NOTE | 2021-04-17 14:04 | P.PN ---
Subjective Progress Note Date: 04/17/21 Is a 75-year-old male patient with known history of metastatic adenocarcinoma of the lungs with previous history of a malignant pericardial effusion requiring a pericardial fluid drainage through a pericardiocentesis back in April 2020 and the fluid was malignant. At that time the patient was in early cardiac tamponade physiology. Note that the patient was further worked up with an EGD and colonoscopy and GI source of malignancy were essentially ruled out. The patient was subsequently found to have a right upper lobe spiculated mass consistent with his primary malignancy. The patient underwent systemic chemotherapy that was started on 07/07/2020. The patient [place]-based regimen and alimta and immunotherapy. He has been followed up with Dr. MORALES. The patient was admitted yesterday to the hospital because of chest congestion and shortness of breath. He had symptoms of URI and he had seen his primary care physician and he was given a course of Z-Alvin and a Medrol Dosepak which she finished. He was using oxygen at 1.5 L nasal cannula. His COVID-19 testing was negative and the patient has not received his vaccination. The patient had a computed tomography scan of the chest that was done in the emergency department that showed no evidence of any pulmonary embolism. The patient has advanced emphysematous changes bilaterally. In addition, the spiculated density in the right upper lobe was again seen measuring 50 mm in size and this was an irregular noncalcified nodule in the posterior right upper lobe. This is slightly increased in size compared to the earlier CAT scan from October 2020. Note that the patient as part of his workup has undergone a CAT scan of the chest abdomen and pelvis on 02/07/2021 that showed COPD, stable bilateral pulmonary nodules, a moderate severe endplate compression fracture of the L1 and left inguinal hernia. His MRI of the brain that was done on 03/30/2021 showed cerebral atrophy without any evidence of metastatic disease. Is out of work from this current admission is showing a white cell count of 5.9 with hemoglobin of 11.4. Sed rate is 26. ProBNP level was 252. Troponin was negative 1. LFTs were normal. Electrolytes were essentially normal. He is a serum bicarb of 34 consistent with chronic metabolic alkalosis. UA was negative. COVID-19 testing was negative. D-dimer was 0.79 and a normal coagulation profile was als o seen. On 04/17/2021, I'm seeing this patient for a follow-up. Was seen yesterday for COPD exacerbation the patient was treated with a combination of bronchodilators and steroids. The patient is feeling much better today. The shortness of breath. Less bronchospastic. Less wheezy. No chest pain. No fever. No chills. No hemoptysis. No pleurisy. No other significant events otherwise for now. Clinically improving. No side effects related to the treatment. No tachycardia. No palpitations. Objective - Vital Signs Vital signs: Vital Signs Temp 98 F 04/17/21 11:04 Pulse 85 04/17/21 12:09 Resp 18 04/17/21 11:04 BP 123/76 04/17/21 11:04 Pulse Ox 98 04/17/21 11:04 Intake & Output 04/16/21 04/17/21 04/17/21 18:59 06:59 18:59 Intake Total 540 0 Balance 540 0 Weight 72.121 kg Intake: Intake, IV Titration 0 Amount Sodium Chloride 0.9% 1, 0 000 ml @ 75 mls/hr IV . [id number] [facility] Rx#:[id number] Oral 540 Other: Voiding Method Toilet Toilet Toilet - Exam Gen. appearance the patient is calm comfortable, mild degree of respiratory distress, has audible wheezing. Head exam was generally normal. There was no scleral icterus or corneal arcus. Mucous membranes were moist. Neck was supple and without jugular venous distension, thyromegaly, or carotid bruits. Carotids were easily palpable bilaterally. There was no adenopathy. Lungs sounds are diminished and the patient is having expiratory wheezes which are obviously improving Cardiac exam revealed the PMI to be normally situated and sized. The rhythm was regular and no extrasystoles were noted during several minutes of auscultation. The first and second heart sounds were normal and physiologic splitting of the second heart sound was noted. There were no murmurs, rubs, clicks, or gallops. Abdominal exam revealed normal bowel sounds. The abdomen was soft, non-tender, and without masses, organomegaly, or appreciable enlargement of the abdominal aorta. Examination of the extremities revealed easily palpable radial, femoral and peda l pulses. There was no cyanosis, clubbing or edema. Examination of the skin revealed no evidence of significant rashes, suspicious appearing nevi or other concerning lesions. Neurologically, the patient is awake and alert and the patient does not have any focal neurological deficit. Cranial nerves are essentially intact. - Labs CBC & Chem 7: 04/17/21 05:55 04/16/21 07:30 Labs: Abnormal Lab Results - Last 24 Hours (Table) 04/16/21 04/16/21 04/17/21 Range/Units 17:18 19:56 05:55 RBC 3.36 L (4.30-5.90) m/uL Hgb 11.6 L (13.0-17.5) gm/dL Hct 34.2 L (39.0-53.0) % MCV 101.9 H (80.0-100.0) fL Lymphocytes # 0.3 L (1.0-4.8) k/uL POC Glucose (mg/dL) 126 H 174 H (75-99) mg/dL 04/17/21 04/17/21 Range/Units 07:08 11:12 RBC (4.30-5.90) m/uL Hgb (13.0-17.5) gm/dL Hct (39.0-53.0) % MCV (80.0-100.0) fL Lymphocytes # (1.0-4.8) k/uL POC Glucose (mg/dL) 130 H 162 H (75-99) mg/dL Assessment and Plan Plan: 1 acute COPD exacerbation with secondary shortness of breath. No evidence of any pneumonia, clinically improving 2 severe COPD with a baseline FEV1 of 34% of predicted based on the spirometry that was done back in 2018. At the same time, the patient had a diffusion capacity of 45% and the patient has been oxygen dependent on 2 L overnight and he has been utilizing Anoro one inhalation on outpatient basis in addition to DuoNeb nebulized treatments on the clock as needed 3 metastatic adenocarcinoma of the lung with a history of malignant pericardial effusion, the patient has received systemic chemotherapy, [place]-based regimen in addition to Alimta and keytruda other the patient's malignancy has been essentially stable and the patient had some mild increase in the right upper lobe spiculated density currently measuring 13 mm in size. No major abnormalities otherwise 4 REM behavioral disorder maintained on Klonopin on outpatient basis 5 inguinal hernia, surgically repaired 6 history of prostate cancer 7 diverticular disease 8 history of smoking 9 obstructive sleep apnea, mild, AHI of 6, not receiving any CPAP therapy Plan DuoNeb the blood she was [id number] Perforomist and Pulmicort nebulized treatments twice a day Continue IV Solu Medrol 60 mg every 6 hours, will taper steroids as of tomorrow Resume home medications We'll continue to follow
[2021-04-17 14:09] VITALS: BMI 21.5
--- NOTE | 2021-04-17 15:09 | P.PN ---
Subjective Progress Note Date: 04/17/21 Principal diagnosis: COPD Exacerbation He was feeling much better after suportive care medications antibiotics and steroids. Objective - Vital Signs Vital signs: Vital Signs Temp 98 F 04/17/21 11:04 Pulse 85 04/17/21 12:09 Resp 18 04/17/21 11:04 BP 123/76 04/17/21 11:04 Pulse Ox 98 04/17/21 11:04 Intake & Output 04/16/21 04/17/21 04/17/21 18:59 06:59 18:59 Intake Total 540 0 Balance 540 0 Weight 72.121 kg 72.121 kg Intake: Intake, IV Titration 0 Amount Sodium Chloride 0.9% 1, 0 000 ml @ 75 mls/hr IV . [id number] [facility] Rx#:[id number] Oral 540 Other: Voiding Method Toilet Toilet Toilet - Exam - Constitutional General appearance: cooperative, no acute distress - EENT Eyes: EOMI, PERRLA ENT: NA/AT, normal oropharynx - Neck Neck: normal ROM - Respiratory Respiratory: bilateral: diminished, rhonchi - Gastrointestinal General gastrointestinal: soft - Integumentary Integumentary: pale - Neurologic Neurologic: CNII-XII intact - Musculoskeletal Musculoskeletal: generalized weakness, strength equal bilaterally - Psychiatric Psychiatric: A&O x's 3, appropriate affect, intact judgment & insight - Labs CBC & Chem 7: 04/17/21 05:55 04/16/21 07:30 Labs: Abnormal Lab Results - Last 24 Hours (Table) 04/16/21 04/16/21 04/17/21 Range/Units 17:18 19:56 05:55 RBC 3.36 L (4.30-5.90) m/uL Hgb 11.6 L (13.0-17.5) gm/dL Hct 34.2 L (39.0-53.0) % MCV 101.9 H (80.0-100.0) fL Lymphocytes # 0.3 L (1.0-4.8) k/uL POC Glucose (mg/dL) 126 H 174 H (75-99) mg/dL 04/17/21 04/17/21 Range/Units 07:08 11:12 RBC (4.30-5.90) m/uL Hgb (13.0-17.5) gm/dL Hct (39.0-53.0) % MCV (80.0-100.0) fL Lymphocytes # (1.0-4.8) k/uL POC Glucose (mg/dL) 130 H 162 H (75-99) mg/dL Assessment and Plan (1) COPD exacerbation Current Visit: Yes Status: Acute Code(s): J44.1 - CHRONIC OBSTRUCTIVE PULMONARY DISEASE W (ACUTE) EXACERBATION SNOMED Code(s): 568848752 (2) Adenocarcinoma Current Visit: No Status: Chronic Priority: High Code(s): C80.1 - MALIGNANT (PRIMARY) NEOPLASM, UNSPECIFIED SNOMED Code(s): 011929082 Plan: Pulmonary is following Continue supportive care Hold chemo and re-evaluate after hospitalization for possible treatment change Hold Immune therapy: ?component of ILD pneumonitis although CT does not show diagnostic signs of this Nonetheless he is feeling better with treatment antibiotics and steroids Will have him follow-up after discharge and resume treatment shortly after if improved. Physician Attest: I have completed the full history and physical and agree with above dictation, dictated as a ascribe
[2021-04-17 16:04] LABS: African American GFR (CKD) 76.2 (60.0-200.0); Anion Gap 8.5 mmol/L (4.00-12.00); BUN/Creat Ratio 22.73 Ratio (12.00-20.00); Calcium 8.9 mg/dL (8.7-10.3); Carbon Dioxide 28.5 mmol/L (21.6-31.8); Magnesium 1.8 mg/dL (1.5-2.4); Non-African American GFR(CKD) 65.8 (60.0-200.0); Potassium 4.5 mmol/L (3.5-5.5)
[2021-04-17 17:12] LABS: Glucose,Whole Blood 139 mg/dL (75-99)
[2021-04-17 20:09] LABS: Glucose,Whole Blood 157 mg/dL (75-99)
[2021-04-17] MEDS: HEPARIN SODIUM,PORCINE/PF 5,000 UNIT/0.5 ML SYRINGE SQ SCH (21:00)
[2021-04-17] MEDS: clonazePAM 0.5 MG TAB PO SCH (21:02)
[2021-04-18] MEDS: methylPREDNISolone SOD SUCCI 125 MG/2 ML VIAL IV SCH ×4 (05:50→23:19)
[2021-04-18] MEDS: FORMOTEROL FUMARATE 20 MCG/2 ML NEBU INHALATION SCH ×2 (07:11→19:12)
[2021-04-18] MEDS: IPRATROPIUM-ALBUTEROL 3 ML NEB INHALATION SCH ×4 (07:11→19:12)
[2021-04-18] MEDS: BUDESONIDE 1 MG/2 ML NEBU INHALATION SCH ×2 (07:11→19:12)
[2021-04-18 07:15] LABS: Glucose,Whole Blood 154 mg/dL (75-99)
[2021-04-18] MEDS: CHLORTHALIDONE 25 MG TAB PO SCH (09:07)
[2021-04-18] MEDS: CYANOCOBALAMIN 500 MCG TAB PO SCH (09:07)
[2021-04-18] MEDS: POTASSIUM CHLORIDE ER 20 MEQ TAB.ER PO SCH (09:08)
[2021-04-18] MEDS: HEPARIN SODIUM,PORCINE/PF 5,000 UNIT/0.5 ML SYRINGE SQ SCH ×2 (09:08→21:50)
[2021-04-18] MEDS: FOLIC ACID 1 MG TAB PO SCH (09:08)
[2021-04-18] MEDS: MULTIVITAMINS, THERA 1 EACH TAB PO SCH (09:08)
[2021-04-18] MEDS: PANTOPRAZOLE 40 MG TABLET PO SCH ×2 (09:10→17:23)
--- NOTE | 2021-04-18 11:18 | P.PN ---
Subjective Progress Note Date: 04/18/21 Is a 75-year-old male patient with known history of metastatic adenocarcinoma of the lungs with previous history of a malignant pericardial effusion requiring a pericardial fluid drainage through a pericardiocentesis back in April 2020 and the fluid was malignant. At that time the patient was in early cardiac tamponade physiology. Note that the patient was further worked up with an EGD and colonoscopy and GI source of malignancy were essentially ruled out. The patient was subsequently found to have a right upper lobe spiculated mass consistent with his primary malignancy. The patient underwent systemic chemotherapy that was started on 07/07/2020. The patient [place]-based regimen and alimta and immunotherapy. He has been followed up with Dr. MORALES. The patient was admitted yesterday to the hospital because of chest congestion and shortness of breath. He had symptoms of URI and he had seen his primary care physician and he was given a course of Z-Alvin and a Medrol Dosepak which she finished. He was using oxygen at 1.5 L nasal cannula. His COVID-19 testing was negative and the patient has not received his vaccination. The patient had a computed tomography scan of the chest that was done in the emergency department that showed no evidence of any pulmonary embolism. The patient has advanced emphysematous changes bilaterally. In addition, the spiculated density in the right upper lobe was again seen measuring 50 mm in size and this was an irregular noncalcified nodule in the posterior right upper lobe. This is slightly increased in size compared to the earlier CAT scan from October 2020. Note that the patient as part of his workup has undergone a CAT scan of the chest abdomen and pelvis on 02/07/2021 that showed COPD, stable bilateral pulmonary nodules, a moderate severe endplate compression fracture of the L1 and left inguinal hernia. His MRI of the brain that was done on 03/30/2021 showed cerebral atrophy without any evidence of metastatic disease. Is out of work from this current admission is showing a white cell count of 5.9 with hemoglobin of 11.4. Sed rate is 26. ProBNP level was 252. Troponin was negative 1. LFTs were normal. Electrolytes were essentially normal. He is a serum bicarb of 34 consistent with chronic metabolic alkalosis. UA was negative. COVID-19 testing was negative. D-dimer was 0.79 and a normal coagulation profile was als o seen. On 04/17/2021, I'm seeing this patient for a follow-up. Was seen yesterday for COPD exacerbation the patient was treated with a combination of bronchodilators and steroids. The patient is feeling much better today. The shortness of breath. Less bronchospastic. Less wheezy. No chest pain. No fever. No chills. No hemoptysis. No pleurisy. No other significant events otherwise for now. Clinically improving. No side effects related to the treatment. No tachycardia. No palpitations. The patient is seen today 04/18/2021 in follow-up on the regular medical floor. He is currently sitting up in bed. Awake and alert in no acute distress. Breathing easier today compared to yesterday. Not quite back to his baseline. He is maintaining good O2 saturations in the mid 90s on 2 L/m per nasal cannula. Blood glucose 154. He is continued on IV Solu-Medrol, DuoNeb inhalations, Pulmicort and Perforomist inhalations. Empiric antibiotics in the form of ceftriaxone. Heparin for DVT prophylaxis. Objective - Vital Signs Vital signs: Vital Signs Temp 98.1 F 04/18/21 05:00 Pulse 88 04/18/21 11:06 Resp 16 04/18/21 11:06 BP 120/65 04/18/21 05:00 Pulse Ox 96 04/18/21 07:11 Intake & Output 04/17/21 04/18/21 04/18/21 18:59 06:59 18:59 Weight 72.121 kg Other: Voiding Method Toilet Toilet Toilet # Voids 2 2 - Exam GENERAL EXAM: Alert, pleasant 75-year-old gentleman, on 2 L nasal cannula, fairly comfortable in no apparent distress. HEAD: Normocephalic. EYES: Normal reaction of pupils, equal size. NOSE: Clear with pink turbinates. THROAT: No erythema or exudates. NECK: No masses, no JVD. CHEST: No chest wall deformity. LUNGS: Equal air entry with end expiratory wheeze, diminished. CVS: S1 and S2 normal with no audible murmur, regular rhythm. ABDOMEN: No hepatosplenomegaly, normal bowel sounds, no guarding or rigidity. SPINE: No scoliosis or deformity SKIN: No rashes CENTRAL NERVOUS SYSTEM: No focal deficits, tone is normal in all 4 extremities. EXTREMITIES: There is no peripheral edema. No clubbing, no cyanosis. [place] pulses are intact. - Labs CBC & Chem 7: 04/17/21 05:55 04/17/21 05:55 Labs: Abnormal Lab Results - Last 24 Hours (Table) 04/17/21 04/17/21 04/17/21 Range/Units 05:55 11:12 17:10 BUN/Creatinine Ratio 22.73 H (12.00-20.00) Ratio Glucose 133 H (70-110) mg/dL POC Glucose (mg/dL) 162 H 139 H (75-99) mg/dL 04/17/21 04/18/21 Range/Units 20:08 07:14 BUN/Creatinine Ratio (12.00-20.00) Ratio Glucose (70-110) mg/dL POC Glucose (mg/dL) 157 H 154 H (75-99) mg/dL Assessment and Plan Assessment: 1 acute COPD exacerbation with secondary shortness of breath. No evidence of any pneumonia, clinically improving 2 severe COPD with a baseline FEV1 of 34% of predicted based on the spirometry that was done back in 2018. At the same time, the patient had a diffusion capacity of 45% and the patient has been oxygen dependent on 2 L overnight and he has been utilizing Anoro one inhalation on outpatient basis in addition to DuoNeb nebulized treatments on the clock as needed 3 metastatic adenocarcinoma of the lung with a history of malignant pericardial effusion, the patient has received systemic chemotherapy, [place]-based regimen in addition to Alimta and keytruda other the patient's malignancy has been essentially stable and the patient had some mild increase in the right upper lobe spiculated density currently measuring 13 mm in size. No major abnormalities otherwise 4 REM behavioral disorder maintained on Klonopin on outpatient basis 5 inguinal hernia, surgically repaired 6 history of prostate cancer 7 diverticular disease 8 history of smoking 9 obstructive sleep apnea, mild, AHI of 6, not receiving any CPAP therapy Plan: The patient was seen and evaluated by Dr. Nicole Improved, not quite back to his baseline Remains on DuoNeb inhalations, Pulmicort and Perforomist inhalations, IV Solu- Medrol We will start to taper his steroids Empiric antibiotics in the form of ceftriaxone
[2021-04-18 11:26] LABS: Glucose,Whole Blood 128 mg/dL (75-99)
--- NOTE | 2021-04-18 11:43 | P.PN ---
Subjective Progress Note Date: 04/18/21 Mushtaq is a 75-year-old white male patient, who presented to the emergency room with his . Patient states that he has had increased SOB s for the past 3 weeks. Recently seen in our office and started on Z-Alvin and Medrol Dosepak on Friday this week which he finished. He reported no change.HE is on 1-1/2 L of oxygen at home for his COPD. Patient states was tested for Covid and negative and was also vaccinated. He was here roughly 1 year ago, when he felt this congestion, cough and shortness of breath he had a pericardial effusion, that was a malignant effyusion with no primary. He is being treated for lung cancer, last chemo was 6 weeks ago but they stopped that he could have left inguinal h ernia repair surgery 4 weeks ago. Patient states tried to use prior to his chemotherapy again and was told that his URI symptoms prevent him from starting that may need to reschedule. Patient states that he gets very short of breath walking just to the bathroom at home and its getting worse over the past week. Patient denies any chest pain. Patient denies any hematochezia or hematemesis or hemoptysis. He also has a h/o prostatectomy 4 years ago for prosate CA 04/17/21 echo reported normal LV function, EF greater than 55%. Continues on Rocephin, nebulized bronchodilators [id number] , IV steroids. Maintaining O2 sats of 90% on room air. Less wheezing. Blood sugars controlled. Has been up ambulating in the room, positive bowel movement. BMP pending. 04/18/2021 maintained on nebulized bronchodilators, Rocephin, steroids. Requiring 2 L nasal cannula O2 to maintain O2 sats in the 90s. Afebrile. Expiratory wheezing persists. Per pulmonary, not back to baseline. Denies chest pain, palpitations. Objective - Vital Signs Vital signs: Vital Signs Temp 98.1 F 04/18/21 05:00 Pulse 88 04/18/21 11:06 Resp 16 04/18/21 11:06 BP 120/65 04/18/21 05:00 Pulse Ox 96 04/18/21 07:11 Intake & Output 04/17/21 04/18/21 04/18/21 18:59 06:59 18:59 Weight 72.121 kg Other: Voiding Method Toilet Toilet Toilet # Voids 2 2 - Exam PHYSICAL EXAM: VITAL SIGNS: [As above] GENERAL: Alert and oriented 3, Sitting up in bed, no acute distress HEENT: Conjunctivae normal. eyes normal. Oral mucosa moist NECK: Supple, No JVD. CARDIOVASCULAR: S1, S2 regular.No murmur, rub or gallop RESPIRATION: Breath sounds diminished in the bases. No rhonchi or crackles. Scattered Expiratory wheezing ABDOMEN: Soft, nontender . No guarding. no masses palpable.Bowel sounds heard. LEGS: Trace edema. no calf tenderness. NERVOUS SYSTEM: Cranial N 2-12 grossly normal. No focal deficits. Strength and sensation grossly intact.. Skin: Warm and dry, no rash - Labs CBC & Chem 7: 04/17/21 05:55 04/17/21 05:55 Labs: Abnormal Lab Results - Last 24 Hours (Table) 04/17/21 04/17/21 04/17/21 Range/Units 05:55 17:10 20:08 BUN/Creatinine Ratio 22.73 H (12.00-20.00) Ratio Glucose 133 H (70-110) mg/dL POC Glucose (mg/dL) 139 H 157 H (75-99) mg/dL 04/18/21 Range/Units 07:14 BUN/Creatinine Ratio (12.00-20.00) Ratio Glucose (70-110) mg/dL POC Glucose (mg/dL) 154 H (75-99) mg/dL Assessment and Plan Assessment: acute copd exacerbation in a patient with history of severe COPD, improving but not yet back to baseline metastatic adenocarcinoma of the lung with history of malignant pericardial effusion , receiving chemotherapy outpatient h/o prostate CA macrocytic anemia dehydration, mild hypoproteinemia Obstructive sleep apnea, mild Plan: Continue on current medication regime ,monitoring and symptomatic treatment. Tapering of steroids initiated. Continue on IV antibiotics, nebulized bronchodilators. Per pulmonary, not back to baseline. Discharge planning in progress tentatively for tomorrow pending pulmonary clearance. The impression and plan of care has been dictated as directed. : I performed a history and examination of this patient, discussed the same with the dictator. I agree with the dictator's note ,documented as a scribe. Any additional findings or plans will be noted.
[2021-04-18 17:24] LABS: Glucose,Whole Blood 133 mg/dL (75-99)
--- NOTE | 2021-04-18 19:08 | P.PN ---
Subjective Progress Note Date: 04/18/21 Principal diagnosis: COPD Exacerbation Was doing a bit better today Objective - Vital Signs Vital signs: Vital Signs Temp 98.4 F 04/18/21 11:52 Pulse 88 04/18/21 15:51 Resp 20 04/18/21 11:52 BP 129/70 04/18/21 11:52 Pulse Ox 97 04/18/21 11:52 Intake & Output 04/18/21 04/18/21 04/19/21 06:59 18:59 06:59 Intake Total 1800 Balance 1800 Intake: Oral 1800 Other: Voiding Method Toilet Toilet # Voids 2 4 - Exam - Constitutional General appearance: cooperative, no acute distress - EENT Eyes: EOMI, PERRLA ENT: NA/AT, normal oropharynx - Neck Neck: normal ROM - Respiratory Respiratory: bilateral: diminished, rhonchi - Gastrointestinal General gastrointestinal: soft - Integumentary Integumentary: pale - Neurologic Neurologic: CNII-XII intact - Musculoskeletal Musculoskeletal: generalized weakness, strength equal bilaterally - Psychiatric Psychiatric: A&O x's 3, appropriate affect, intact judgment & insight - Labs CBC & Chem 7: 04/17/21 05:55 04/17/21 05:55 Labs: Abnormal Lab Results - Last 24 Hours (Table) 04/17/21 04/18/21 04/18/21 Range/Units 20:08 07:14 11:25 POC Glucose (mg/dL) 157 H 154 H 128 H (75-99) mg/dL 04/18/21 Range/Units 17:22 POC Glucose (mg/dL) 133 H (75-99) mg/dL Assessment and Plan (1) COPD exacerbation Current Visit: Yes Status: Acute Code(s): J44.1 - CHRONIC OBSTRUCTIVE PULMONARY DISEASE W (ACUTE) EXACERBATION SNOMED Code(s): 550454582 (2) Adenocarcinoma Current Visit: No Status: Chronic Priority: High Code(s): C80.1 - MALIGNANT (PRIMARY) NEOPLASM, UNSPECIFIED SNOMED Code(s): 443472562 Plan: Pulmonary is following Continue supportive care Hold chemo and re-evaluate after hospitalization for possible treatment change Hold Immune therapy: ?component of ILD pneumonitis although CT does not show diagnostic signs of this Nonetheless he is feeling better with treatment antibiotics and steroids Will have him follow-up after discharge and resume treatment shortly after if improved. Continue with supportive care per pulmonology Physician Attest: I have completed the full history and physical and agree with above dictation, dictated as a ascribe
[2021-04-18 20:48] LABS: Glucose,Whole Blood 198 mg/dL (75-99)
[2021-04-18] MEDS: clonazePAM 0.5 MG TAB PO SCH (21:50)
[2021-04-19 05:01] VITALS: BP 105/62; TEMP 98
[2021-04-19] MEDS: methylPREDNISolone SOD SUCCI 125 MG/2 ML VIAL IV SCH ×2 (06:16→11:43)
[2021-04-19 06:31] LABS: Basophils % (A) 0 %; Eosinophils % (A) 0 %; HCT 35.2 % (39.0-53.0); HGB 11.8 gm/dL (13.0-17.5); Lymphocytes # (A) 0.3 k/uL (1.0-4.8); Lymphocytes % (A) 3 %; MCH 34.5 pg (25.0-35.0); MCHC 33.6 g/dL (31.0-37.0); MCV 102.6 fL (80.0-100.0); Macrocytosis Slight; Monocytes # (A) 0.5 k/uL (0-1.0); Monocytes % (A) 5 %; Neutrophils # (A) 9.6 k/uL (1.3-7.7); Neutrophils % (A) 92 %; Platelet Count 219 k/uL (150-450); RBC 3.44 m/uL (4.30-5.90); RDW 12.5 % (11.5-15.5); WBC 10.4 k/uL (3.8-10.6)
[2021-04-19] MEDS: BUDESONIDE 1 MG/2 ML NEBU INHALATION SCH (07:27)
[2021-04-19] MEDS: FORMOTEROL FUMARATE 20 MCG/2 ML NEBU INHALATION SCH (07:27)
[2021-04-19] MEDS: IPRATROPIUM-ALBUTEROL 3 ML NEB INHALATION SCH ×2 (07:28→10:55)
[2021-04-19 07:52] LABS: Glucose,Whole Blood 125 mg/dL (75-99)
[2021-04-19] MEDS: PANTOPRAZOLE 40 MG TABLET PO SCH (08:33)
[2021-04-19] MEDS: FOLIC ACID 1 MG TAB PO SCH (08:34)
[2021-04-19] MEDS: CYANOCOBALAMIN 500 MCG TAB PO SCH (08:34)
[2021-04-19] MEDS: HEPARIN SODIUM,PORCINE/PF 5,000 UNIT/0.5 ML SYRINGE SQ SCH (08:34)
[2021-04-19] MEDS: MULTIVITAMINS, THERA 1 EACH TAB PO SCH (08:34)
[2021-04-19] MEDS: CHLORTHALIDONE 25 MG TAB PO SCH (08:34)
[2021-04-19] MEDS: POTASSIUM CHLORIDE ER 20 MEQ TAB.ER PO SCH (08:35)
--- NOTE | 2021-04-19 08:51 | P.DS ---
Providers Date of admission: 04/18/21 14:27 Expected date of discharge: 04/19/21 Attending physician: Adam Ortega Consults: 04/16/21 07:10 Consult Physician Routine Consulting Provider: Nic Fish Consult Reason/Comments: pleural effusion Do you want consulting provider notified?: Yes 04/16/21 07:11 Consult Physician Routine Consulting Provider: Brynn Nicole Consult Reason/Comments: shortness of breath Do you want consulting provider notified?: Yes 04/16/21 10:54 Consult Physician Routine Consulting Provider: Rex Trejo Consult Reason/Comments: adenocarcinoma Do you want consulting provider notified?: Yes Primary care physician: [facility] Course: FInal DIagnoses: acute copd exacerbation in a patient with history of severe COPD, improving but not yet back to baseline metastatic adenocarcinoma of the lung with history of malignant pericardial effusion , receiving chemotherapy outpatient h/o prostate CA macrocytic anemia dehydration, mild hypoproteinemia Obstructive sleep apnea, mild Hospital Course:Mushtaq is a 75-year-old white male patient, who presented to the emergency room with his . Patient states that he has had increased SOB s for the past 3 weeks. Recently seen in our office and started on Z-Alvin and Medrol Dosepak on Friday this week which he finished. He reported no change.HE is on 1-1/2 L of oxygen at home for his COPD. Patient states was tested for Covid and negative and was also vaccinated. He was here roughly 1 year ago, when he felt this congestion, cough and shortness of breath he had a pericardial effusion, that was a malignant effyusion with no primary. He is being treated for lung cancer, last chemo was 6 weeks ago but they stopped that he could have left inguinal hernia repair surgery 4 weeks ago. Patient states tried to use prior to his chemotherapy again and was told that his URI symptoms prevent him from starting that may need to reschedule. Patient states that he gets very short of breath walking just to the bathroom at home and its getting worse over the past week. Patient denies any chest pain. Patient denies any hematochezia or hematemesis or hemoptysis. He also has a h/o prostatectomy 4 years ago for prosate CA 04/17/21 echo reported normal LV function, EF greater than 55%. Continues on Rocephin, nebulized bronchodilators [id number] , IV steroids. Maintaining O2 sats of 90% on room air. Less wheezing. Blood sugars controlled. Has been up ambulating in the room, positive bowel movement. BMP pending. 04/18/2021 maintained on nebulized bronchodilators, Rocephin, steroids. Requiring 2 L nasal cannula O2 to maintain O2 sats in the 90s. Afebrile. Expiratory wheezing persists. Per pulmonary, not back to baseline. Denies chest pain, palpitations. Significant clinical improvement. Currently 91% on room air . O2 sat on room air after ambulation pending . Patient reports he does have oxygen which he uses prn and nebulized treatments at home.denies chest pain, palpitations or increasing shortness of breath. Denies lightheadedness, dizziness or focal deficits. Patient will be discharged home today in a stable condition with guarded prognosis, pending pulmonary final dc recommendations and clearance. The impression and plan of care has been dictated as directed. : I performed a history and examination of this patient, discussed the same with the dictator. I agree with the dictator's note ,documented as a scribe. Any additional findings or plans will be noted. Patient Condition at Discharge: Stable Plan - Discharge Summary Discharge Rx Participant: No New Discharge Prescriptions: New predniSONE 10 mg PO DIRECTED #30 tab Cefuroxime Axetil [Ceftin] 500 mg PO BID 1 Days #6 tab Continue Umeclidinium Brm/Vilanterol Tr [Anoro Ellipta 62.5-25 Mcg INH] 1 puff INHALATION RT-DAILY clonazePAM [KlonoPIN] 0.5 mg PO HS Albuterol Nebulized [Ventolin Nebulized] 2.5 mg INHALATION RT-QID PRN PRN Reason: Shortness Of Breath Folic Acid 2 mg PO DAILY Multivitamins, Thera [Multivitamin (formulary)] 1 tab PO DAILY Potassium Chloride 20 meq PO QAM Chlorthalidone [Hygroton] 25 mg PO DAILY Pantoprazole [Protonix] 40 mg PO BID Albuterol Inhaler [Ventolin Hfa Inhaler] 2 puff INHALATION RT-QID PRN PRN Reason: Shortness Of Breath Cyanocobalamin (Vitamin B-12) [Vitamin B-12] 1,000 mcg PO DAILY Discharge Medication List Umeclidinium Brm/Vilanterol Tr [Anoro Ellipta 62.5-25 Mcg INH] 1 puff INHALATION RT-DAILY 03/01/19 [History] clonazePAM [KlonoPIN] 0.5 mg PO HS 03/01/19 [History] Albuterol Nebulized [Ventolin Nebulized] 2.5 mg INHALATION RT-QID PRN 05/09/20 [History] Folic Acid 2 mg PO DAILY 07/13/20 [History] Chlorthalidone [Hygroton] 25 mg PO DAILY 03/07/21 [History] Multivitamins, Thera [Multivitamin (formulary)] 1 tab PO DAILY 03/07/21 [History] Pantoprazole [Protonix] 40 mg PO BID 03/07/21 [History] Potassium Chloride 20 meq PO QAM 03/07/21 [History] Albuterol Inhaler [Ventolin Hfa Inhaler] 2 puff INHALATION RT-QID PRN 04/15/21 [History] Cyanocobalamin (Vitamin B-12) [Vitamin B-12] 1,000 mcg PO DAILY 04/15/21 [History] predniSONE 10 mg PO DIRECTED #30 tab 04/18/21 [Rx] Cefuroxime Axetil [Ceftin] 500 mg PO BID 1 Days #6 tab 04/19/21 [Rx] Follow up Appointment(s)/Referral(s): Adam Ortega Jr, DO [Primary Care Provider] - 3 Days Brynn Nicole MD [STAFF PHYSICIAN] - 2 Weeks Activity/Diet/Wound Care/Special Instructions: O2 sat on ra after amb: Confirm follow-up appointment with oncology prior to discharge.
[2021-04-19 10:57] VITALS: RESP 18
[2021-04-19 11:08] VITALS: PULSE 88
[2021-04-19 11:53] LABS: African American GFR (CKD) 62.3 (60.0-200.0); Albumin 3.3 g/dL (3.80-4.90); Albumin/Globulin Ratio 1.65 (1.60-3.17); Anion Gap 9.5 mmol/L (4.00-12.00); BUN/Creat Ratio 36.92 Ratio (12.00-20.00); Carbon Dioxide 25.5 mmol/L (21.6-31.8); Non-African American GFR(CKD) 53.8 (60.0-200.0); Potassium 4.6 mmol/L (3.5-5.5); Total Bilirubin 0.2 mg/dL (0.2-1.2); Total Protein 5.3 g/dL (6.2-8.2)
== END 2021-04-19 12:11 | disposition home or self-care (01) | DRG 191 ==
LOC: EC 20:36 → 5NMEDONC 04-16 01:06 → OBSVTOIN 04-18 14:27 → 5NMEDONC 04-18 23:57
PROVIDERS: ADMIT Family Medicine; ATTEND Family Medicine
DX: J44.1 Chronic obstructive pulmonary disease with (acute) exacerbation (principal); C34.11 Malignant neoplasm of upper lobe, right bronchus or lung; C79.9 Secondary malignant neoplasm of unspecified site; J91.0 Malignant pleural effusion; E87.3 Alkalosis; M48.56XA Collapsed vertebra, not elsewhere classified, lumbar region, initial encounter for fracture; D53.9 Nutritional anemia, unspecified; E77.8 Other disorders of glycoprotein metabolism; E86.0 Dehydration; F40.240 Claustrophobia; G47.33 Obstructive sleep apnea (adult) (pediatric); G47.52 REM sleep behavior disorder; H91.90 Unspecified hearing loss, unspecified ear; Z87.01 Personal history of pneumonia (recurrent); K40.90 Unilateral inguinal hernia, without obstruction or gangrene, not specified as recurrent; K57.90 Diverticulosis of intestine, part unspecified, without perforation or abscess without bleeding; R32 Unspecified urinary incontinence; Z91.81 History of falling; I08.1 Rheumatic disorders of both mitral and tricuspid valves; F10.21 Alcohol dependence, in remission; R42 Dizziness and giddiness; Z20.822 Contact with and (suspected) exposure to COVID-19; Z79.52 Long term (current) use of systemic steroids; H93.19 Tinnitus, unspecified ear; Z79.899 Other long term (current) drug therapy; Z80.3 Family history of malignant neoplasm of breast; Z82.0 Family history of epilepsy and other diseases of the nervous system; Z82.5 Family history of asthma and other chronic lower respiratory diseases; Z85.46 Personal history of malignant neoplasm of prostate; Z85.828 Personal history of other malignant neoplasm of skin; Z87.891 Personal history of nicotine dependence; Z90.79 Acquired absence of other genital organ(s); Z96.641 Presence of right artificial hip joint; Z99.81 Dependence on supplemental oxygen; Z88.1 Allergy status to other antibiotic agents; Z88.2 Allergy status to sulfonamides
CPT/HCPCS: 36415; 71046; 71275; 80048; 80053; 81003; 83605; 83735; 83880; 84443; 84484; 85025; 85379; 85610; 85652; 85730; 86140; 87635; 93005; 93306; 94640; 94760; 99285

== ENCOUNTER → 2021-05-16 | Outpatient (CLI) | payer MEDICARE ==
--- NOTE | 2021-05-16 22:19 | CT ---
EXAMINATION TYPE: CT ChestAbdPelvis wo/w con DATE OF EXAM: 05/16/2021 INDICATION: Lung Cancer COMPARISON: 02/07/2021 CT DLP: 2258 mGycm CONTRAST: Performed with Oral Contrast and without and with IV Contrast, patient injected with 100 ml mL of Iso rangel 300. TECHNIQUE: Axial images at 5 mm thick sections. Reconstructed images in the coronal plane. Delayed images through the kidneys. FINDINGS: CT CHEST: Portion of the thyroid visualized is normal. There is a small irregular pneumonitis changes in the posterior lateral left apex appears stable kayode uring 0.8 cm. Series 8 image 12. There may be some pleural thickening along the anterior right lung m argin measuring 0.7 cm. Series 8 image 28. This was present previously emphysematous changes are with in the lungs. There is some thickening along the major fissure on the left within the lingula measuring 1.7 cm brown sverse. This may be slightly thickened and more irregular than the comparison. No enlarged mediastinal or hilar adenopathy is evident. There are some small pretracheal lymph nodes present The ascending aorta diameter at the level of the main pulmonary artery is 4.2 cm. The main pulmonary artery diameter at the bifurcation is 8.2 cm. There is a small left pleural effusion. Very minimal right pleural effusion is present. CT ABDOMEN: Liver: Normal Spleen: Normal Pancreas: Normal Adrenal glands: The adrenal glands are normal. Gallbladder: Normal Kidneys: No masses are evident. No hydronephrosis is present. No cysts are present. No renal stone s are evident. Aorta: Vascular calcification is within the aorta. Inferior vena cava: Normal. CT PELVIS: A large amount of fecal debris is within the distal colon. No obstruction is identified. There are lo ops of bowel which are incompletely distended or lack oral contrast limiting their evaluation. Appendix: Normal as visualized. Urinary bladder: Limited evaluation due to beam assigning artifact from a right hip prosthesis. Genitourinary structures: Prostate is not clearly identified. Osseous structures: No suspicious lytic or sclerotic lesions. IMPRESSIONS: 1. Small bilateral pleural effusions. 2. Lingular density may be increasing in size from comparison. Consider follow-up with PET/CT. 3. Remaining lung findings are present previously and appears stable including pneumonitis change in the right apex and pleural calcification anterior right chest as well as diffuse emphysematous change s.
== END | disposition home or self-care (01) ==
LOC: RADCTMAIN 10:10
PROVIDERS: ATTEND Internal Medicine Hematology & Oncology
DX: C34.90 Malignant neoplasm of unspecified part of unspecified bronchus or lung (principal); J90 Pleural effusion, not elsewhere classified; J18.9 Pneumonia, unspecified organism
CPT/HCPCS: 82565; 84520; 71270; 74178; 36415; Q9967

== ENCOUNTER 2021-06-29 20:59 | Inpatient (IN) | payer MEDICARE ==
--- NOTE | 2021-06-29 21:23 | ED ---
SOB HPI - General Chief Complaint: Shortness of Breath Stated Complaint: SOB Time Seen by Provider: 06/29/21 21:13 Source: patient Mode of arrival: ambulatory - History of Present Illness Initial Comments: This patient is a 75-year-old man with history of COPD and also non-small cell lung cancer. He did have cancer infusion yesterday. The patient states that he was feeling pretty well until just after noon when he started noticing he was becoming more short of breath. As the symptoms got worse he felt he should be evaluated here. He feels like he is having congestion in his chest. He has not noted fever or chills. He is coughing a little bit of clear sputum. Patient denies chest pain. No change in urination or bowel movements. He states he has chronic bilateral leg edema and has not noted a change there. No calf pain. MD Complaint: shortness of breath, cough Onset/Timin -: hour(s) Severity scale (1-10): 0 Consistency: constant Improves With: oxygen, upright position Worsens With: lying flat Known History Of: COPD, other Associated Symptoms: denies other symptoms Treatments Prior to Arrival: oxygen - Related Data Home Oxygen Therapy: Yes Home Oxygen Amount: 2 Liters Home Medications Medication Instructions Recorded Confirmed Umeclidinium Brm/Vilanterol Tr 1 puff INHALATION RT-DAILY 03/01/19 06/29/21 [Anoro Ellipta 62.5-25 Mcg INH] clonazePAM [KlonoPIN] 0.5 mg PO HS 03/01/19 06/29/21 Albuterol Nebulized [Ventolin 2.5 mg INHALATION RT-QID PRN 05/09/20 06/29/21 Nebulized] Folic Acid 2 mg PO DAILY 07/13/20 06/29/21 Chlorthalidone [Hygroton] 25 mg PO DAILY 03/07/21 06/29/21 Multivitamins, Thera [Multivitamin 1 tab PO DAILY 03/07/21 06/29/21 (formulary)] Pantoprazole [Protonix] 40 mg PO BID 03/07/21 06/29/21 Albuterol Inhaler [Ventolin Hfa 2 puff INHALATION RT-QID PRN 04/15/21 06/29/21 Inhaler] Cyanocobalamin (Vitamin B-12) 1,000 mcg PO DAILY 04/15/21 06/29/21 [Vitamin B-12] Potassium Chloride ER [K-Dur 20] 20 meq PO DAILY 06/29/21 06/29/21 Allergies Allergy/AdvReac Type Severity Reaction Status Date / Time Sulfa (Sulfonamide Allergy Unknown Rash/Hives Verified 06/29/21 21:10 Antibiotics) tetracycline Allergy Unknown "Fuzzy Verified 06/29/21 21:10 headed" Review of Systems ROS Statement: Those systems with pertinent positive or pertinent negative responses have been documented in the HPI. ROS Other: All systems not noted in ROS Statement are negative. Constitutional: Denies: fever, chills, weakness Respiratory: Reports: cough, dyspnea, wheezes Cardiovascular: Reports: orthopnea, edema. Denies: chest pain, palpitations, syncope Gastrointestinal: Denies: abdominal pain, nausea, vomiting, diarrhea, constipation, melena, hematochezia Genitourinary: Denies: dysuria, hematuria Musculoskeletal: Denies: back pain Skin: Reports: rash (Recent history of shingles) Neurological: Denies: headache, weakness, numbness Past Medical History Past Medical History: Cancer, GERD/Reflux, Pneumonia Additional Past Medical History / Comment(s): 05/10/20 pericardial effusion with early cardiac tamponade/acute respiratory failure with pericardiocentesis/pneumonia/bilateral leg edema, cancer pericardial sac/chest lymph nodes per pt/spouse-receiving chemotherapy-last time approximately 6 weeks ago/on hold for recent hernia surgery/then URI, past vertigo when first standing/syncope pt states d/t electrolyte disturbance, anemia with transfusions, lung nodules being monitored and thought possibly scarring from previous pneumonia, prostate cancer with surgery, skin cancer with removals, gastritis, hiatal hernia, severe clausterphobia, 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 and has had past falls out of bed, bilateral [place] and tinnitis, past alcoholism per pt but quit drinking 31 plus yrs ago, shingles last week History of Any Multi-Drug Resistant Organisms: None Reported Past Surgical History: Joint Replacement, Prostate Surgery Additional Past Surgical History / Comment(s): 03/12/21 inguinal hernia surgery, 05/18/20 EGD, colonoscopy, robot assisted laparoscopic prostatectomy with bilateral lymph node dissection, skin cancer removals, rt hip replacement Past Anesthesia/Blood Transfusion Reactions: No Reported Reaction Additional Past Anesthesia/Blood Transfusion Reaction / Comment(s): Claustrophobic. Past Psychological History: No Psychological Hx Reported Smoking Status: Former smoker Past Alcohol Use History: None Reported Past Drug Use History: None Reported - Past Family History Mother Family Medical History: Cancer Additional Family Medical History / Comment(s): breast cancer, Etoh abuse. Father Family Medical History: COPD, Dementia, Musculoskeletal Disorder, Neurologic Disorder Additional Family Medical History / Comment(s): parkinson's, ETOH abuse General Exam General appearance: alert, in distress Head exam: Present: atraumatic, normocephalic Eye exam: Present: normal appearance. Absent: scleral icterus, conjunctival injection ENT exam: Present: normal oropharynx Neck exam: Present: full ROM. Absent: meningismus Respiratory exam: Present: respiratory distress, wheezes, other (Patient is sitting up and pursed lip breathing.). Absent: rhonchi, stridor, chest wall tenderness, accessory muscle use, decreased breath sounds Cardiovascular Exam: Present: regular rate, normal rhythm, normal heart sounds. Absent: systolic murmur, diastolic murmur, rubs, gallop GI/Abdominal exam: Present: soft. Absent: distended, tenderness, guarding, rebound, rigid, mass Extremities exam: Present: normal inspection, normal capillary refill, pedal edema (Bilateral pitting edema to just below the knees). Absent: calf tenderness Back exam: Present: normal inspection. Absent: CVA tenderness (R), CVA tenderness (L) Neurological exam: Present: alert Skin exam: Present: warm, dry, intact, normal color. Absent: rash Course Vital Signs 06/29/21 06/29/21 06/29/21 21:05 22:23 23:52 Temperature 98.4 F Pulse Rate 94 93 92 Respiratory 18 20 16 Rate Blood Pressure 173/90 138/80 O2 Sat by Pulse 96 96 97 Oximetry 06/30/21 06/30/21 00:55 02:00 Temperature Pulse Rate 98 90 Respiratory 12 18 Rate Blood Pressure 141/92 O2 Sat by Pulse 98 94 L Oximetry Medical Decision Making - Lab Data Result diagrams: 06/29/21 21:18 06/29/21 21:18 Lab Results 06/29/21 06/29/21 06/29/21 Range/Units 21:18 21:18 21:18 WBC 38.5 H (3.8-10.6) k/uL RBC 3.32 L (4.30-5.90) m/uL Hgb 11.8 L (13.0-17.5) gm/dL Hct 35.0 L (39.0-53.0) % MCV 105.5 H D (80.0-100.0) fL MCH 35.7 H (25.0-35.0) pg MCHC 33.8 (31.0-37.0) g/dL RDW 17.9 H (11.5-15.5) % Plt Count 208 D (150-450) k/uL MPV 7.6 Neutrophils % 95 % Lymphocytes % 2 % Monocytes % 2 % Eosinophils % 0 % Basophils % 0 % Neutrophils # 36.5 H (1.3-7.7) k/uL Lymphocytes # 0.9 L (1.0-4.8) k/uL Monocytes # 0.8 (0-1.0) k/uL Eosinophils # 0.1 (0-0.7) k/uL Basophils # 0.1 (0-0.2) k/uL Manual Slide Review Performed Anisocytosis Slight Anisocytosis (manual) Present Macrocytosis Marked A Ovalocytes Present Stomatocytes Present PT 9.6 (9.0-12.0) sec INR 0.9 (<1.2) APTT 20.0 L (22.0-30.0) sec D-Dimer (<0.60) mg/L FEU Sodium 133 L (137-145) mmol/L Potassium 4.2 (3.5-5.1) mmol/L Chloride 93 L (98-107) mmol/L Carbon Dioxide 36 H (22-30) mmol/L Anion Gap 4 mmol/L BUN 34 H (9-20) mg/dL Creatinine 1.05 (0.66-1.25) mg/dL Est GFR (CKD-EPI)AfAm 81 (>60 ml/min/1.73 sqM) Est GFR (CKD-EPI)NonAf 70 (>60 ml/min/1.73 sqM) Glucose 95 (74-99) mg/dL Plasma Lactic Acid Abhishek (0.7-2.0) mmol/L Calcium 9.2 (8.4-10.2) mg/dL Total Bilirubin 0.3 (0.2-1.3) mg/dL AST 40 (17-59) U/L ALT 19 (4-49) U/L Alkaline Phosphatase 69 (38-126) U/L Troponin I (0.000-0.034) ng/mL NT-Pro-B Natriuret Pep pg/mL Total Protein 6.1 L (6.3-8.2) g/dL Albumin 3.6 (3.5-5.0) g/dL 06/29/21 06/29/21 06/29/21 Range/Units 21:18 21:18 21:18 WBC (3.8-10.6) k/uL RBC (4.30-5.90) m/uL Hgb (13.0-17.5) gm/dL Hct (39.0-53.0) % MCV (80.0-100.0) fL MCH (25.0-35.0) pg MCHC (31.0-37.0) g/dL RDW (11.5-15.5) % Plt Count (150-450) k/uL MPV Neutrophils % % Lymphocytes % % Monocytes % % Eosinophils % % Basophils % % Neutrophils # (1.3-7.7) k/uL Lymphocytes # (1.0-4.8) k/uL Monocytes # (0-1.0) k/uL Eosinophils # (0-0.7) k/uL Basophils # (0-0.2) k/uL Manual Slide Review Anisocytosis Anisocytosis (manual) Macrocytosis Ovalocytes Stomatocytes PT (9.0-12.0) sec INR (<1.2) APTT (22.0-30.0) sec D-Dimer (<0.60) mg/L FEU Sodium (137-145) mmol/L Potassium (3.5-5.1) mmol/L Chloride (98-107) mmol/L Carbon Dioxide (22-30) mmol/L Anion Gap mmol/L BUN (9-20) mg/dL Creatinine (0.66-1.25) mg/dL Est GFR (CKD-EPI)AfAm (>60 ml/min/1.73 sqM) Est GFR (CKD-EPI)NonAf (>60 ml/min/1.73 sqM) Glucose (74-99) mg/dL Plasma Lactic Acid Abhishek 1.1 (0.7-2.0) mmol/L Calcium (8.4-10.2) mg/dL Total Bilirubin (0.2-1.3) mg/dL AST (17-59) U/L ALT (4-49) U/L Alkaline Phosphatase (38-126) U/L Troponin I 0.020 (0.000-0.034) ng/mL NT-Pro-B Natriuret Pep 254 pg/mL Total Protein (6.3-8.2) g/dL Albumin (3.5-5.0) g/dL 06/29/21 Range/Units 21:18 WBC (3.8-10.6) k/uL RBC (4.30-5.90) m/uL Hgb (13.0-17.5) gm/dL Hct (39.0-53.0) % MCV (80.0-100.0) fL MCH (25.0-35.0) pg MCHC (31.0-37.0) g/dL RDW (11.5-15.5) % Plt Count (150-450) k/uL MPV Neutrophils % % Lymphocytes % % Monocytes % % Eosinophils % % Basophils % % Neutrophils # (1.3-7.7) k/uL Lymphocytes # (1.0-4.8) k/uL Monocytes # (0-1.0) k/uL Eosinophils # (0-0.7) k/uL Basophils # (0-0.2) k/uL Manual Slide Review Anisocytosis Anisocytosis (manual) Macrocytosis Ovalocytes Stomatocytes PT (9.0-12.0) sec INR (<1.2) APTT (22.0-30.0) sec D-Dimer 0.87 H (<0.60) mg/L FEU Sodium (137-145) mmol/L Potassium (3.5-5.1) mmol/L Chloride (98-107) mmol/L Carbon Dioxide (22-30) mmol/L Anion Gap mmol/L BUN (9-20) mg/dL Creatinine (0.66-1.25) mg/dL Est GFR (CKD-EPI)AfAm (>60 ml/min/1.73 sqM) Est GFR (CKD-EPI)NonAf (>60 ml/min/1.73 sqM) Glucose (74-99) mg/dL Plasma Lactic Acid Abhishek (0.7-2.0) mmol/L Calcium (8.4-10.2) mg/dL Total Bilirubin (0.2-1.3) mg/dL AST (17-59) U/L ALT (4-49) U/L Alkaline Phosphatase (38-126) U/L Troponin I (0.000-0.034) ng/mL NT-Pro-B Natriuret Pep pg/mL Total Protein (6.3-8.2) g/dL Albumin (3.5-5.0) g/dL - EKG Data -: EKG Interpreted by [place] EKG shows normal: sinus rhythm (With PAC, rate 98), axis (Normal), intervals (Normal), QRS complexes (Normal), ST-T waves (Normal) Rate: normal Disposition Clinical Impression: Chronic obstructive pulmonary disease (COPD), Pleural effusion Disposition: ADMITTED IP TO THIS HOSP Condition: Fair Referrals: Adam Ortega Jr, [Primary Care Provider] - 1-2 days
[2021-06-29 21:50] LABS: Albumin 3.6 g/dL (3.5-5.0); Calcium 9.2 mg/dL (8.4-10.2); Potassium 4.2 mmol/L (3.5-5.1); Total Bilirubin 0.3 mg/dL (0.2-1.3); Total Protein 6.1 g/dL (6.3-8.2)
[2021-06-29 21:54] LABS: INR 0.9 (<1.2)
[2021-06-29 21:55] LABS: Prothrombin Time 9.6 sec (9.0-12.0)
[2021-06-29 21:58] LABS: Anisocytosis Slight; Basophils # (A) 0.1 k/uL (0-0.2); Basophils % (A) 0 %; Eosinophils # (A) 0.1 k/uL (0-0.7); Eosinophils % (A) 0 %; HGB 11.8 gm/dL (13.0-17.5); Lymphocytes # (A) 0.9 k/uL (1.0-4.8); Lymphocytes % (A) 2 %; MCH 35.7 pg (25.0-35.0); MCHC 33.8 g/dL (31.0-37.0); Macrocytosis Marked; Mean Platelet Volume 7.6; Monocytes # (A) 0.8 k/uL (0-1.0); Monocytes % (A) 2 %; Neutrophils # (A) 36.5 k/uL (1.3-7.7); Neutrophils % (A) 95 %; Platelet Count 208 k/uL (150-450); RBC 3.32 m/uL (4.30-5.90); RDW 17.9 % (11.5-15.5); WBC 38.5 k/uL (3.8-10.6)
[2021-06-29 22:00] LABS: MCV 105.5 fL (80.0-100.0)
--- NOTE | 2021-06-29 22:24 | XR ---
EXAMINATION TYPE: XR chest 2V DATE OF EXAM: 06/29/2021 COMPARISON: 04/15/2021 HISTORY: Difficulty breathing TECHNIQUE: 2 view FINDINGS: There is blunting of the costophrenic angles. Heart size is normal. There are no hilar mass es. Bony thorax is intact. There are chest leads. There is no gross heart failure. IMPRESSION: There are small chronic pleural effusion slightly increased compared to old exam. No hear t failure seen. Normal heart.
[2021-06-29 22:36] LABS: Anisocytosis (M) Present; Ovalocytes Present; Stomatocytes Present
--- NOTE | 2021-06-30 01:17 | CT ---
EXAMINATION TYPE: CT chest angio for PE DATE OF EXAM: 06/30/2021 COMPARISON: 04/15/2021 HISTORY: elevated d-dimer. possible PE. Pt. states possible lung CA also CT DLP: 292.9 mGycm Automated exposure control for dose reduction was used. CONTRAST: Performed with IV Contrast, patient injected with 100ml mL of Isovue 370. Images obtained from the thoracic inlet to the diaphragm with IV contrast. There are 3-D post process ed images. There is diffuse pulmonary emphysema. There is left pleural effusion. Heart size is normal. There is no pericardial effusion. There are no hilar masses. I see no mediastinal adenopathy. The ascending ao rta measures 3.9 cm. There is no dissection. There is a 1 cm stellate density right upper lobe. I see no evidence of filling defect in the pulmonary arteries. Upper abdominal soft tissues appear in tact. There is L1 50% anterior wedging. There is T6 mild anterior wedging 20%. IMPRESSION: No evidence of pulmonary embolism. Pulmonary emphysema. Stellate nodule right upper lobe not changed compared to old exam. Old L1 compression fracture unchanged. There is T6 compression fracture that appears new compared to old exam. Left pleural effusion is slightly increased compared to old exam.
[2021-06-30] MEDS ORDERED: NALOXONE 0.4 MG/ML 1 ML VIAL IV PRN (02:44)
[2021-06-30] MEDS ORDERED: ONDANSETRON 4 MG/2 ML VIAL IVP PRN (02:44)
[2021-06-30] MEDS ORDERED: ACETAMINOPHEN TAB 325 MG TAB PO PRN (02:44)
[2021-06-30] MEDS ORDERED: MORPHINE SULFATE 4 MG/ML SYRINGE IV PRN (02:44)
[2021-06-30] MEDS ORDERED: ALBUTEROL NEBULIZED 2.5 MG/3 ML INHALATION PRN (02:49)
[2021-06-30] MEDS ORDERED: clonazePAM 0.5 MG TAB PO STA (02:55)
[2021-06-30] MEDS: SODIUM CHLORIDE 0.9% 1,000 ML IV SCH (03:07)
[2021-06-30] MEDS ORDERED: IPRATROPIUM 0.5 MG/2.5 ML NEBU INHALATION SCH (08:00)
[2021-06-30] MEDS: FORMOTEROL FUMARATE 20 MCG/2 ML NEBU INHALATION SCH ×2 (08:43→19:46)
[2021-06-30] MEDS: PANTOPRAZOLE 40 MG TABLET PO SCH ×3 (09:21→21:14)
[2021-06-30] MEDS: FOLIC ACID 1 MG TAB PO SCH (09:21)
[2021-06-30] MEDS: MULTIVITAMINS, THERA 1 EACH TAB PO SCH (09:21)
[2021-06-30] MEDS: CYANOCOBALAMIN 500 MCG TAB PO SCH (09:21)
[2021-06-30] MEDS: POTASSIUM CHLORIDE ER 20 MEQ TAB.ER PO SCH (09:40)
[2021-06-30] MEDS: ENOXAPARIN 40 MG/0.4 ML SYRINGE SQ SCH (09:40)
[2021-06-30] MEDS: CHLORTHALIDONE 25 MG TAB PO SCH (09:41)
--- NOTE | 2021-06-30 09:52 | P.CONS ---
History of Present Illness - Reason for Consult Consult date: 06/30/21 Lung cancer on treatment Requesting physician: Sergio Fournier - History of Present Illness Status Post Almta and neulasta on 06/29/2021. After his chemo yesterday he stated he had increased SOB and presented to Emergency. He is feeling better during evaluation today. Pulmonary is following Oncologic History Mr Lewis is a pleasant white male, initially seen in consultation at [facility] on 05/16/20. The patient had presented with progressive shortness of breath with x-ray showing new small pleural effusions. Patient did have a known history of COPD and smoking. The patient will also noted to have bilateral lower extremity edema with echocardiogram showing ejection fraction in the 40 happened 45% with large pericardial effusion. The patient had percutaneous pericardial drainage of 05/10/20 with cytology positive for metastatic adenocarcinoma, consistent with lung or upper GI primary. Patient had a prior history of prostate cancer with a radical prostatectomy in 03/12. PSA was normal. He had an EGD showing some irregular areas on the duodenum and distal esophagus, with biopsy negative for malignancy. MRI of the abdomen did not show any abnormality in the liver or pancreas. Clinically it was it was therefore felt to be reasonable to treated as a lung primary. Patient had biomarker testing done with NGS, that was negative. he also had a PET scan, that showed uptake only in the mediastinal node, as well as some uptake in nonenlarged right supraclavicular and hilar nodes. he was seen for his first office visit on 06/06/20. he was started on treatment with carboplatin plus Alimta plus Keytruda with cycle 1 on 06/16/20. He is status post 4 cycles The patient was admitted after cycle 2 with marked weakness and syncopal episode. He was found to have dehydration due to diarrhea. Repeat echocardiogram did not show any the reaccumulation of pericardial effusion. The patient did have significant neutropenia during his admission and required growth factor support, though he did not have evidence of infection. He proceeded to C 3 with dose reduction and addition of GCSF. he tolerated cycle 3 overall better. After cycle 4, he again had episodes of diarrhea lasting about 3-4 days with some dizziness and required hydration in the office. he was therefore changed to Alimta plus immunotherapy maintenance after cycle 4, starting on 09/07/20. He is status post 9 cycles. 01/24/21-Pt here for f/u s/p 7 cycles of maintenance Alimta and keytruda. He has complaints of significant shortness of breath with minimal exertion, this is not necessarily new but certainly seems to be somewhat progressive over time. At last visit he was treated for upper respiratory infection with steroids and antibiotics, denies any significant change, not any worse. He was incontinent of urine 2 nights, he fell twice "grayed out", few bloody noses. No other complaints at this time. He is in general weak, lost quite a bit of muscle mass, he is not able to do very much activity. CT scans, at the time of his visit on 02/14/21 had shown new bilateral pleural effusions right greater than left. He had thoracentesis on the right on 02/16/21, which was negative. his treatment was then held for left inguinal hernia surgery, that was performed on 03/12/21. Case was discussed with General surgery to ensure proper scheduling. Patient then resumed immunotherapy alone on 03/22/21. He was admitted on 04/15/21 with SOB. This was felt to be more likely COPD exac vs immunotherapy related ILD. He was discharged on 04/19/21 the patient had a cycle with chemotherapy alone on 05/03/21 which he tolerated well. he was seen by pulmonary medicine, and it was felt that his symptoms were more likely COPD related. CT scans and also shown fairly limited versus diffuse pneumonitis changes. Therefore after detailed discussion he was rechallenged with chemotherapy plus immunotherapy on 05/24/21. He denied any fever/chills/nausea/vomiting. he developed significantly increased shortness of breath, as well as leg swelling about a week after treatment. He was evaluated by the nurse practitioner, and started on prednisone taper. There has been slow improvement with intermittent worsening. He is complaining of nasal congestion and cough currently. He is ccontinuing on oxygen which he he is now using [id number]. leg swelling responds better to Lasix than chlorthalidone.He has had some taste alteration, which is tolerable. He continues to have dizziness on standing up from laying or sitting down. He had another recent fall as a result. The patient is managing better with extra care on standing up after sitting or lying down. He also c/o bloating and burping, improved with Protonix BID. the patient developed is due to complains about a week after rechallenge with immunotherapy. He is slowly improving with prednisone taper though he still has intermittent exacerbations (most likely related to ongoing weather conditions). He is also concerned about an infection as he has developed some nasal congestion and has a congested cough. - CBC showed hemoglobin of 11.3, WBC 13.25 and platelets 303. - Check labs - The patient immunotherapy will now be discontinued. Treatment will be delayed by a week and he will then proceed with chemotherapy alone, assuming that symptoms are sufficiently improved. - Prescription for azithromycin - He was advised to use Lasix for 3 days if the swelling gets worse and then go back to chlorthalidone. He was also advised to continue using potassium supplementation daily -He has been having issues with anxiety and shakiness probably exacerbated by the steroids. He is currently on clonazepam already, prescribed by pulmonary medicine. He was advised to contact them to see about increasing the dose. Review of Systems All systems: negative Constitutional: Reports as per HPI Past Medical History Past Medical History: Cancer, GERD/Reflux, Pneumonia Additional Past Medical History / Comment(s): 05/10/20 pericardial effusion with early cardiac tamponade/acute respiratory failure with pericardiocentesis/pneumonia/bilateral leg edema, cancer pericardial sac/chest lymph nodes per pt/spouse-receiving chemotherapy-last time approximately 6 weeks ago/on hold for recent hernia surgery/then URI, past vertigo when first standing/syncope pt states d/t electrolyte disturbance, anemia with transfusions, lung nodules being monitored and thought possibly scarring from previous pneumonia, prostate cancer with surgery, skin cancer with removals, gastritis, hiatal hernia, severe clausterphobia, 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 and has had past falls out of bed, bilateral LOWER [place] and tinnitis, past alcoholism per pt but quit drinking 31 plus yrs ago, shingles last week History of Any Multi-Drug Resistant Organisms: None Reported Past Surgical History: Joint Replacement, Prostate Surgery Additional Past Surgical History / Comment(s): 03/12/21 inguinal hernia surgery, 05/18/20 EGD, colonoscopy, robot assisted laparoscopic prostatectomy with bilateral lymph node dissection, skin cancer removals, rt hip replacement Past Anesthesia/Blood Transfusion Reactions: No Reported Reaction Additional Past Anesthesia/Blood Transfusion Reaction / Comm: Claustrophobic. Past Psychological History: No Psychological Hx Reported Additional Psychological History / Comment(s): Pt resides with his spouse and her adult son. Spouse and son are caregivers for patient. Pt unable to ambulate any distance, he is assisted to wheelchair. He has a nebulizer and home oxygen. He also has a pulse oximetry. His spouse/son drive him to appts. Smoking Status: Former smoker Past Alcohol Use History: None Reported Additional Past Alcohol Use History / Comment(s): Pt started smoking as a teen and quit 04/2020. Quit alcohol 31 yrs ago- states Hx of heavy alcohol use. Past Drug Use History: None Reported - Past Family History Mother Family Medical History: Cancer Additional Family Medical History / Comment(s): breast cancer, Etoh abuse. Father Family Medical History: COPD, Dementia, Musculoskeletal Disorder, Neurologic Disorder Additional Family Medical History / Comment(s): parkinson's, ETOH abuse Medications and Allergies Home Medications Medication Instructions Recorded Confirmed Type Umeclidinium Brm/Vilanterol Tr 1 puff INHALATION RT-DAILY 03/01/19 06/29/21 History [Anoro Ellipta 62.5-25 Mcg INH] clonazePAM [KlonoPIN] 0.5 mg PO HS 03/01/19 06/29/21 History Albuterol Nebulized [Ventolin 2.5 mg INHALATION RT-QID PRN 05/09/20 06/29/21 History Nebulized] Folic Acid 2 mg PO DAILY 07/13/20 06/29/21 History Chlorthalidone [Hygroton] 25 mg PO DAILY 03/07/21 06/29/21 History Multivitamins, Thera [Multivitamin 1 tab PO DAILY 03/07/21 06/29/21 History (formulary)] Pantoprazole [Protonix] 40 mg PO BID 03/07/21 06/29/21 History Albuterol Inhaler [Ventolin Hfa 2 puff INHALATION RT-QID PRN 04/15/21 06/29/21 History Inhaler] Cyanocobalamin (Vitamin B-12) 1,000 mcg PO DAILY 04/15/21 06/29/21 History [Vitamin B-12] Potassium Chloride ER [K-Dur 20] 20 meq PO DAILY 06/29/21 06/29/21 History Allergies Allergy/AdvReac Type Severity Reaction Status Date / Time Sulfa (Sulfonamide Allergy Unknown Rash/Hives Verified 06/29/21 21:10 Antibiotics) tetracycline Allergy Unknown "Fuzzy Verified 06/29/21 21:10 headed" Physical Exam Vitals: Vital Signs Temp Pulse Pulse Resp BP BP Pulse Ox 06/30/21 08:55 80 06/30/21 08:46 85 06/30/21 08:00 97.9 F 93 26 H 132/61 96 06/30/21 04:40 97.9 F 91 15 139/78 98 06/30/21 03:00 90 18 115/82 96 06/30/21 02:00 90 18 94 L 06/30/21 00:55 98 12 141/92 98 06/29/21 23:52 92 16 97 06/29/21 22:23 93 20 138/80 96 06/29/21 21:05 98.4 F 94 18 173/90 96 Intake and Output 06/29/21 06/30/21 06/30/21 22:59 06:59 14:59 Output Total 300 Balance -300 Output: Urine 300 Other: Voiding Method Urinal Weight 72.575 kg 72.575 kg - Constitutional General appearance: cooperative, no acute distress - EENT Eyes: EOMI, PERRLA ENT: NA/AT, normal oropharynx - Neck Neck: normal ROM - Respiratory Respiratory: bilateral: diminished, rhonchi - Gastrointestinal General gastrointestinal: soft - Integumentary Integumentary: pale - Neurologic Neurologic: CNII-XII intact - Musculoskeletal Musculoskeletal: generalized weakness, strength equal bilaterally - Psychiatric Psychiatric: A&O x's 3, appropriate affect, intact judgment & insight Results CBC & Chem 7: 06/30/21 10:38 06/30/21 10:38 Labs: Abnormal Lab Results - Last 24 Hours (Table) 06/29/21 06/29/21 06/29/21 Range/Units 21:18 21:18 21:18 WBC 38.5 H (3.8-10.6) k/uL RBC 3.32 L (4.30-5.90) m/uL Hgb 11.8 L (13.0-17.5) gm/dL Hct 35.0 L (39.0-53.0) % MCV 105.5 H D (80.0-100.0) fL MCH 35.7 H (25.0-35.0) pg RDW 17.9 H (11.5-15.5) % Neutrophils # 36.5 H (1.3-7.7) k/uL Lymphocytes # 0.9 L (1.0-4.8) k/uL Macrocytosis Marked A APTT 20.0 L (22.0-30.0) sec D-Dimer (<0.60) mg/L FEU Sodium 133 L (137-145) mmol/L Chloride 93 L (98-107) mmol/L Carbon Dioxide 36 H (22-30) mmol/L BUN 34 H (9-20) mg/dL Total Protein 6.1 L (6.3-8.2) g/dL 06/29/21 Range/Units 21:18 WBC (3.8-10.6) k/uL RBC (4.30-5.90) m/uL Hgb (13.0-17.5) gm/dL Hct (39.0-53.0) % MCV (80.0-100.0) fL MCH (25.0-35.0) pg RDW (11.5-15.5) % Neutrophils # (1.3-7.7) k/uL Lymphocytes # (1.0-4.8) k/uL Macrocytosis APTT (22.0-30.0) sec D-Dimer 0.87 H (<0.60) mg/L FEU Sodium (137-145) mmol/L Chloride (98-107) mmol/L Carbon Dioxide (22-30) mmol/L BUN (9-20) mg/dL Total Protein (6.3-8.2) g/dL Assessment and Plan Plan: Assessment and Plan (1) COPD exacerbation Current Visit: Yes Status: Acute Code(s): J44.1 - CHRONIC OBSTRUCTIVE PULMONARY DISEASE W (ACUTE) EXACERBATION SNOMED Code(s): 340747091 (2) Adenocarcinoma Current Visit: No Status: Chronic Priority: High Code(s): C80.1 - MALIG NANT (PRIMARY) NEOPLASM, UNSPECIFIED SNOMED Code(s): 916931510 Plan: Pulmonary is following Continue supportive care Hold chemo and re-evaluate after hospitalization for possible treatment change He did receive growth factor, no need in hospital Monitor CBC Nonetheless he is feeling better with treatment antibiotics and steroids
[2021-06-30 11:03] LABS: Anisocytosis Slight; HCT 32.6 % (39.0-53.0); HGB 10.6 gm/dL (13.0-17.5); Hypochromasia Slight; MCH 35.3 pg (25.0-35.0); MCHC 32.6 g/dL (31.0-37.0); MCV 108.2 fL (80.0-100.0); Macrocytosis Marked; Mean Platelet Volume 7.8; Platelet Count 187 k/uL (150-450); RBC 3.01 m/uL (4.30-5.90); RDW 18.3 % (11.5-15.5); WBC 42.8 k/uL (3.8-10.6)
--- NOTE | 2021-06-30 11:12 | P.HPIM ---
History of Present Illness H&P Date: 06/30/21 Chief Complaint: GISSELLE Dennison is a pleasant white male,with a known history of COPD and smoking. He was found to have pericardial effsusion last year along with bilateral lower extremity edema . The patient had percutaneous pericardial drainage of 05/10/20 with cytology positive for metastatic adenocarcinoma, consistent with lung or upper GI primary. Patient had a prior history of prostate cancer with a radical prostatectomy in 03/12. PSA was normal. He had multiple tests including MRI, PET , colonoscopy failing to show other etiology. He is most recently been discontinued on immunotherapy and is been undergoing chemotherapy He is currently being followed by and Dr Trejo for the lung cancer, however there is no significant primary tumor found.. He came to the emergency room last night with complaints of increasing shortness of breath over the past day. He denies any current chest pains, pressures. Complains of shortness of breath. He complains of left upper back pain. He denies any nausea or vomiting. He states his appetite has not been good but he forces himself to eat. He reports ongoing bipedal edema below the knees. He is not wearing support hose that he was given his last admission. He has oxygen at home but no BiPAP. Currently is resting comfortably in his bed. His is at bedside. He indicates his mood has not been very good. His is concerned about him being depressed with his current situation. Review of Systems All systems: negative Past Medical History Past Medical History: Cancer, GERD/Reflux, Pneumonia Additional Past Medical History / Comment(s): 05/10/20 pericardial effusion with early cardiac tamponade/acute respiratory failure with pericardiocentesis/pneumonia/bilateral leg edema, cancer pericardial sac/chest lymph nodes per pt/spouse-receiving chemotherapy-last time approximately 6 weeks ago/on hold for recent hernia surgery/then URI, past vertigo when first standing /syncope pt states d/t electrolyte disturbance, anemia with transfusions, lung nodules being monitored and thought possibly scarring from previous pneumonia, prostate cancer with surgery, skin cancer with removals, gastritis, hiatal hernia, severe clausterphobia, 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 and has had past falls out of bed, bilateral [place] and tinnitis, past alcoholism per pt but quit drinking 31 plus yrs ago, shingles last week History of Any Multi-Drug Resistant Organisms: None Reported Past Surgical History: Joint Replacement, Prostate Surgery Additional Past Surgical History / Comment(s): 03/12/21 inguinal hernia surgery, 05/18/20 EGD, colonoscopy, robot assisted laparoscopic prostatectomy with bilateral lymph node dissection, skin cancer removals, rt hip replacement Past Anesthesia/Blood Transfusion Reactions: No Reported Reaction Additional Past Anesthesia/Blood Transfusion Reaction / Comment(s): Claustrophobic. Past Psychological History: No Psychological Hx Reported Additional Psychological History / Comment(s): Pt resides with his spouse and her adult son. Spouse and son are caregivers for patient. Pt unable to ambulate any distance, he is assisted to wheelchair. He has a nebulizer and h ome oxygen. He also has a pulse oximetry. His spouse/son drive him to [employer]. Smoking Status: Former smoker Past Alcohol Use History: None Reported Additional Past Alcohol Use History / Comment(s): Pt started smoking as a teen and quit 04/2020. Quit alcohol 31 yrs ago- states Hx of heavy alcohol use. Past Drug Use History: None Reported - Past Family History Mother Family Medical History: Cancer Additional Family Medical History / Comment(s): breast cancer, Etoh abuse. Father Family Medical History: COPD, Dementia, Musculoskeletal Disorder, Neurologic Disorder Additional Family Medical History / Comment(s): parkinson's, ETOH abuse Medications and Allergies Home Medications Medication Instructions Recorded Confirmed Type Umeclidinium Brm/Vilanterol Tr 1 puff INHALATION RT-DAILY 03/01/19 06/29/21 History [Anoro Ellipta 62.5-25 Mcg INH] clonazePAM [KlonoPIN] 0.5 mg PO HS 03/01/19 06/29/21 History Albuterol Nebulized [Ventolin 2.5 mg INHALATION RT-QID PRN 05/09/20 06/29/21 History Nebulized] Folic Acid 2 mg PO DAILY 07/13/20 06/29/21 History Chlorthalidone [Hygroton] 25 mg PO DAILY 03/07/21 06/29/21 History Multivitamins, Thera [Multivitamin 1 tab PO DAILY 03/07/21 06/29/21 History (formulary)] Pantoprazole [Protonix] 40 mg PO BID 03/07/21 06/29/21 History Albuterol Inhaler [Ventolin Hfa 2 puff INHALATION RT-QID PRN 04/15/21 06/29/21 History Inhaler] Cyanocobalamin (Vitamin B-12) 1,000 mcg PO DAILY 04/15/21 06/29/21 History [Vitamin B-12] Potassium Chloride ER [K-Dur 20] 20 meq PO DAILY 06/29/21 06/29/21 History Allergies Allergy/AdvReac Type Severity Reaction Status Date / Time Sulfa (Sulfonamide Allergy Unknown Rash/Hives Verified 06/29/21 21:10 Antibiotics) tetracycline Allergy Unknown "Fuzzy Verified 06/29/21 21:10 headed" Physical Exam Vitals: Vital Signs Temp Pulse Pulse Resp BP BP Pulse Ox 06/30/21 08:55 80 06/30/21 08:46 85 06/30/21 08:00 97.9 F 93 26 H 132/61 96 06/30/21 04:40 97.9 F 91 15 139/78 98 06/30/21 03:00 90 18 115/82 96 06/30/21 02:00 90 18 94 L 06/30/21 00:55 98 12 141/92 98 06/29/21 23:52 92 16 97 06/29/21 22:23 93 20 138/80 96 06/29/21 21:05 98.4 F 94 18 173/90 96 Intake and Output 06/29/21 06/30/21 06/30/21 22:59 06:59 14:59 Intake Total 600 Output Total 300 Balance -300 600 Intake: Oral 600 Output: Urine 300 Other: Voiding Method Urinal # Voids 1 # Bowel Movements 1 Weight 72.575 kg 72.575 kg GENERAL: Alert and oriented 3, Sitting up in bed, no acute distress, bipap at bedside not currently in use whuile he eats HEENT: Conjunctivae normal. eyes normal. Oral mucosa moist NECK: Supple, No JVD. CARDIOVASCULAR: S1, S2 regular.No murmur, rub or gallop RESPIRATION: Breath sounds diminished in the bases. No rhonchi or crackles. Scattered Expiratory wheezing ABDOMEN: Soft, nontender . No guarding. no masses palpable.Bowel sounds heard. LEGS: +2edema. no calf tenderness. NERVOUS SYSTEM: Cranial N 2-12 grossly normal. No focal deficits. Strength and sensation grossly intact.. Skin: Warm and dry, no rash Results CBC & Chem 7: 06/29/21 21:18 06/29/21 21:18 Labs: Abnormal Lab Results - Last 24 Hours (Table) 06/29/21 06/29/21 06/29/21 Range/Units 21:18 21:18 21:18 WBC 38.5 H (3.8-10.6) k/uL RBC 3.32 L (4.30-5.90) m/uL Hgb 11.8 L (13.0-17.5) gm/dL Hct 35.0 L (39.0-53.0) % MCV 105.5 H D (80.0-100.0) fL MCH 35.7 H (25.0-35.0) pg RDW 17.9 H (11.5-15.5) % Neutrophils # 36.5 H (1.3-7.7) k/uL Lymphocytes # 0.9 L (1.0-4.8) k/uL Macrocytosis Marked A APTT 20.0 L (22.0-30.0) sec D-Dimer (<0.60) mg/L FEU Sodium 133 L (137-145) mmol/L Chloride 93 L (98-107) mmol/L Carbon Dioxide 36 H (22-30) mmol/L BUN 34 H (9-20) mg/dL Total Protein 6.1 L (6.3-8.2) g/dL 06/29/21 Range/Units 21:18 WBC (3.8-10.6) k/uL RBC (4.30-5.90) m/uL Hgb (13.0-17.5) gm/dL Hct (39.0-53.0) % MCV (80.0-100.0) fL MCH (25.0-35.0) pg RDW (11.5-15.5) % Neutrophils # (1.3-7.7) k/uL Lymphocytes # (1.0-4.8) k/uL Macrocytosis APTT (22.0-30.0) sec D-Dimer 0.87 H (<0.60) mg/L FEU Sodium (137-145) mmol/L Chloride (98-107) mmol/L Carbon Dioxide (22-30) mmol/L BUN (9-20) mg/dL Total Protein (6.3-8.2) g/dL CT scan - chest: report reviewed (No pulmonary embolism, old L1 compression fracture. New T6 compression fracture compared to last film. Slightly increased left pleural effusion) Thrombosis Risk Factor Assmnt - Choose All That Apply Each Factor Represents 1 point: Abnormal pulmonary function (COPD) Each Risk Factor Represents 2 Points: Age 61-74 years Other congenital or acquired thrombophilia - If yes, enter type in comment: No Thrombosis Risk Factor Assessment Total Risk Factor Score: 3 Thrombosis Risk Factor Assessment Level: Moderate Risk Assessment and Plan (1) Pleural effusion Current Visit: Yes Status: Acute Code(s): J90 - PLEURAL EFFUSION, NOT ELSEWHERE CLASSIFIED SNOMED Code(s): 18962662 (2) COPD exacerbation Current Visit: No Status: Acute Code(s): J44.1 - CHRONIC OBSTRUCTIVE PULMONARY DISEASE W (ACUTE) EXACERBATION SNOMED Code(s): 868241923 (3) Dehydration Current Visit: No Status: Acute Code(s): E86.0 - DEHYDRATION SNOMED Code(s): 20321148 (4) Edema of both lower extremities due to peripheral venous insufficiency Current Visit: No Status: Acute Code(s): I87.2 - VENOUS INSUFFICIENCY (CHRONIC) (PERIPHERAL) SNOMED Code(s): 68723183303180099 (5) History of nicotine dependence Current Visit: No Status: Acute Code(s): Z87.891 - PERSONAL HISTORY OF NICOTINE DEPENDENCE SNOMED Code(s): 395503024 (6) History of prostate cancer Current Visit: No Status: Acute Code(s): Z85.46 - PERSONAL HISTORY OF MALIGNANT NEOPLASM OF PROSTATE SNOMED Code(s): 942004101 (7) Leukocytosis Current Visit: No Status: Acute Code(s): D72.829 - ELEVATED WHITE BLOOD CELL COUNT, UNSPECIFIED SNOMED Code(s): 082535396 (8) Adenocarcinoma Current Visit: No Status: Chronic Priority: High Code(s): C80.1 - MALIGNANT (PRIMARY) NEOPLASM, UNSPECIFIED SNOMED Code(s): 566791554 (9) S/P chemotherapy, time since less than 4 weeks Current Visit: Yes Status: Acute Code(s): Z92.21 - PERSONAL HISTORY OF ANTINEOPLASTIC CHEMOTHERAPY SNOMED Code(s): 746980129 (10) Compression fracture of T6 vertebra Current Visit: Yes Status: Acute Code(s): S22.050A - WEDGE COMPRESSION FRACTURE OF T5-T6 VERTEBRA, INIT SNOMED Code(s): 805722371 (11) Compression fracture of L1 lumbar vertebra Current Visit: Yes Status: Acute Code(s): S32.010A - WEDGE COMPRESSION FRACTURE OF FIRST LUMBAR VERTEBRA, INIT SNOMED Code(s): 073798788 Plan: patient will be rehydrated consult Pulmonology and He/Onc repeat labs in am increase klonopin to q12hr start Cymbalta to help with mood consult Dr lundberg regarding compression fractures copntine other medications steroids, IV antibiootics for COPD exacerbation he will be reevaluated in 24 hours
[2021-06-30 11:13] LABS: Calcium 8.9 mg/dL (8.4-10.2); Potassium 3.8 mmol/L (3.5-5.1)
[2021-06-30 12:01] LABS: Lymphocytes # (M) 0.86 k/uL (1.0-4.8); Nucleated Red Blood Cells 0 /100 WBC (0-0)
[2021-06-30 12:03] LABS: Band Neutrophils % 4 %; Eosinophils # (M) 0.43 k/uL (0-0.7); Monocytes # (M) 0.43 k/uL (0-1.0); Neutrophils % (M) 94 %; Total Cells Counted 200
[2021-06-30] MEDS: methylPREDNISolone SOD SUCCI 125 MG/2 ML VIAL IV SCH ×3 (12:38→23:17)
[2021-06-30] MEDS: DULoxetine HCL 30 MG CAPSULE.DR PO SCH (12:38)
[2021-06-30] MEDS: AZITHROMYCIN 500 MG in SODIUM CHLORIDE 0.9% 250 ML IVPB SCH (12:43)
[2021-06-30] MEDS: LIDOCAINE 5% PATCH TOPICAL SCH (12:44)
--- NOTE | 2021-06-30 13:46 | P.CNPUL ---
History of Present Illness Consult date: 06/30/21 Requesting physician: Kaveh Garcia Reason for consult: dyspnea, COPD, hypoxemia Chief complaint: Shortness of breath History of present illness: This is a very pleasant 75-year-old gentleman who follows with Dr. Ortega is his primary care provider. He has a history of metastatic adenocarcinoma of the lungs. He also has a history of chronic obstructive pulmonary disease with an FEV1 value 34% of predicted. He follows with Dr. Nicole in our office for the same. He received chemotherapy this week and the next day he developed increasing shortness of breath cough and congestion and presented to the emergency room yesterday for the same. Chest x-ray revealed small chronic pleural effusion slightly increased compared to previous on 04/15/2021. CT angiogram ruled out pulmonary embolism. There is noted pulmonary emphysema. There is a stellate nodule in the right upper lobe not change compared to previous on 04/15/2021. White count 42.8. Hemoglobin 10.6. Sodium 132. Potassium 3.8. Creatinine 1.06. Malagon virus not detected. He is seen today in consultation on the selective care unit. He is currently sitting up in bed. He is on BiPAP 12/5 and 28% FiO2 and maintaining O2 saturations in the 90s. He is awake and alert. He is feeling a bit better today compared to yesterday. Review of Systems REVIEW OF SYSTEMS: CONSTITUTIONAL: Denies any recent significant weight loss or weight gain. EYES: Denies change in vision. EARS, NOSE, MOUTH, THROAT: Denies headaches, denies sore throat. CARDIOVASCULAR: Denies chest pain, palpitations or syncopal episodes. RESPIRATORY: Positive for shortness of breath, cough, congestion no hemoptysis. GASTROINTESTINAL: Denies change in appetite, denies abdominal pain GENITOURINARY: Denies hematuria, denies infections. MUSKULOSKELETAL: Denies pain, denies swelling. INTEGUMENTARY: Denies rash, denies eczema. NEUROLOGICAL: Denies recent memory loss, no recent seizure activity. PSYCHIATRIC: Denies anxiety, denies depression. HEMATOLOGIC/LYMPHATIC: Denies anemia, denies enlarged lymph nodes. Past Medical History Past Medical History: Cancer, GERD/Reflux, Pneumonia Additional Past Medical History / Comment(s): 05/10/20 pericardial effusion with early cardiac tamponade/acute respiratory failure with pericardiocentesis/pneumonia/bilateral leg edema, cancer pericardial sac/chest lymph nodes per pt/spouse-receiving chemotherapy-last time approximately 6 weeks ago/on hold for recent hernia surgery/then URI, past vertigo when first debra ding/syncope pt states d/t electrolyte disturbance, anemia with transfusions, lung nodules being monitored and thought possibly scarring from previous pneumonia, prostate cancer with surgery, skin cancer with removals, gastritis, hiatal hernia, severe clausterphobia, 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 and has had past falls out of bed, bilateral [place] and tinnitis, past alcoholism per pt but quit drinking 31 plus yrs ago, shingles last week History of Any Multi-Drug Resistant Organisms: None Reported Past Surgical History: Joint Replacement, Prostate Surgery Additional Past Surgical History / Comment(s): 03/12/21 inguinal hernia surgery, 05/18/20 EGD, colonoscopy, robot assisted laparoscopic prostatectomy with bilate ral lymph node dissection, skin cancer removals, rt hip replacement Past Anesthesia/Blood Transfusion Reactions: No Reported Reaction Additional Past Anesthesia/Blood Transfusion Reaction / Comment(s): Claustrophobic. Past Psychological History: No Psychological Hx Reported Additional Psychological History / Comment(s): Pt resides with his spouse and her adult son. Spouse and son are caregivers for patient. Pt unable to ambulate any distance, he is assisted to wheelchair. He has a nebulizer and home oxygen. He also has a pulse oximetry. His spouse/son drive him to appts. Smoking Status: Former smoker Past Alcohol Use History: None Reported Additional Past Alcohol Use History / Comment(s): Pt started smoking as a teen and quit 04/2020. Quit alcohol 31 yrs ago- states Hx of heavy alcohol use. Past Drug Use History: None Reported - Past Family History Mother Family Medical History: Cancer Additional Family Medical History / Comment(s): breast cancer, Etoh abuse. Father Family Medical History: COPD, Dementia, Musculoskeletal Disorder, Neurologic Disorder Additional Family Medical History / Comment(s): parkinson's, ETOH abuse Medications and Allergies Home Medications Medication Instructions Recorded Confirmed Type Umeclidinium Brm/Vilanterol Tr 1 puff INHALATION RT-DAILY 03/01/19 06/29/21 H istory [Anoro Ellipta 62.5-25 Mcg INH] clonazePAM [KlonoPIN] 0.5 mg PO HS 03/01/19 06/29/21 History Albuterol Nebulized [Ventolin 2.5 mg INHALATION RT-QID PRN 05/09/20 06/29/21 History Nebulized] Folic Acid 2 mg PO DAILY 07/13/20 06/29/21 History Chlorthalidone [Hygroton] 25 mg PO DAILY 03/07/21 06/29/21 History Multivitamins, Thera [Multivitamin 1 tab PO DAILY 03/07/21 06/29/21 History (formulary)] Pantoprazole [Protonix] 40 mg PO BID 03/07/21 06/29/21 History Albuterol Inhaler [Ventolin Hfa 2 puff INHALATION RT-QID PRN 04/15/21 06/29/21 History Inhaler] Cyanocobalamin (Vitamin B-12) 1,000 mcg PO DAILY 04/15/21 06/29/21 History [Vitamin B-12] Potassium Chloride ER [K-Dur 20] 20 meq PO DAILY 06/29/21 06/29/21 History Allergies Allergy/AdvReac Type Severity Reaction Status Date / Time Sulfa (Sulfonamide Allergy Unknown Rash/Hives Verified 06/29/21 21:10 Antibiotics) tetracycline Allergy Unknown "Fuzzy Verified 06/29/21 21:10 headed" Physical Exam Vitals: Vital Signs Temp Pulse Pulse Resp BP BP Pulse Ox 06/30/21 12:00 99 F 89 16 128/56 98 06/30/21 08:55 80 06/30/21 08:46 85 06/30/21 08:00 97.9 F 93 26 H 132/61 96 06/30/21 04:40 97.9 F 91 15 139/78 98 06/30/21 03:00 90 18 115/82 96 06/30/21 02:00 90 18 94 L 06/30/21 00:55 98 12 141/92 98 06/29/21 23:52 92 16 97 06/29/21 22:23 93 20 138/80 96 06/29/21 21:05 98.4 F 94 18 173/90 96 Intake and Output 06/29/21 06/30/21 06/30/21 22:59 06:59 14:59 Intake Total 600 Output Total 300 Balance -300 600 Intake: Oral 600 Output: Urine 300 Other: Voiding Method Urinal Urinal # Voids 2 # Bowel Movements 1 Weight 72.575 kg 72.575 kg GENERAL EXAM: Alert, pleasant 75-year-old gentleman, currently on BiPAP at 28% FiO2 with O2 saturation 98%, comfortable in no apparent distress. HEAD: Normocephalic. EYES: Normal reaction of pupils, equal size. NOSE: Clear with pink turbinates. THROAT: No erythema or exudates. NECK: No masses, no JVD. CHEST: No chest wall deformity. LUNGS: Equal air entry with bilateral end expiratory wheeze, diminished. CVS: S1 and S2 normal with no audible murmur, regular rhythm. ABDOMEN: No hepatosplenomegaly, normal bowel sounds, no guarding or rigidity. SPINE: No scoliosis or deformity SKIN: No rashes CENTRAL NERVOUS SYSTEM: No focal deficits, tone is normal in all 4 extremities. EXTREMITIES: There is no peripheral edema. No clubbing, no cyanosis. Peripheral pulses are intact. Results - Laboratory Findings CBC and BMP: 06/30/21 10:38 06/30/21 10:38 PT/INR, D-dimer PT 9.6 sec (9.0-12.0) 06/29/21 21:18 INR 0.9 (<1.2) 06/29/21 21:18 D-Dimer 0.87 mg/L FEU (<0.60) H 06/29/21 21:18 Abnormal lab findings: Abnormal Labs 06/29/21 06/29/21 06/29/21 21:18 21:18 21:18 WBC 38.5 H RBC 3.32 L Hgb 11.8 L Hct 35.0 L MCV 105.5 H D MCH 35.7 H RDW 17.9 H Neutrophils # 36.5 H Neutrophils # (Manual) Lymphocytes # 0.9 L Lymphocytes # (Manual) Macrocytosis Marked A APTT 20.0 L D-Dimer Sodium 133 L Chloride 93 L Carbon Dioxide 36 H BUN 34 H Glucose Total Protein 6.1 L 06/29/21 06/30/21 06/30/21 21:18 10:38 10:38 WBC 42.8 H RBC 3.01 L Hgb 10.6 L Hct 32.6 L MCV 108.2 H MCH 35.3 H RDW 18.3 H Neutrophils # Neutrophils # (Manual) 41.90 H Lymphocytes # Lymphocytes # (Manual) 0.86 L Macrocytosis Marked A APTT D-Dimer 0.87 H Sodium 132 L Chloride 93 L Carbon Dioxide 34 H BUN 33 H Glucose 187 H Total Protein - Diagnostic Findings Chest x-ray: image reviewed CT scan - chest: image reviewed Assessment and Plan Assessment: 1 Acute hypoxemic respiratory failure secondary to an acute exacerbation of COPD with FEV1 value 34% of predicted, requiring BiPAP support 2 Metastatic adenocarcinoma of the lungs, received chemotherapy on 06/28/2021 3 Right upper lobe spiculated lesion measuring 1 cm, stable compared to previous 4 Metastatic adenocarcinoma along with a 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 8 Obstructive sleep apnea, mild, not on CPAP therapy Plan: The patient was seen and evaluated by Dr. Julia Lawrence IV Solu-Medrol Add DuoNeb inhalations, Pulmicort and Perforomist inhalations Trial off the BiPAP and utilizes nasal cannula Titrate down the FiO2 as tolerated We will continue to follow and make further recommendations based on his clinical status I, the cosigning physician, performed a history & physical examination of the patient. Lungs sounds with bilateral end expiratory wheeze, diminished. Maintaining good O2 saturations in the 90s on 28% FiO2 via BiPAP. I discussed the assessment and plan of care with my nurse practitioner, Linh Way. I attest to the above consultation as dictated by her. Time with Patient: Greater than 30
[2021-06-30] MEDS: BUDESONIDE 0.5 MG/2 ML NEBU INHALATION SCH (19:46)
[2021-06-30 20:12] LABS: Glucose,Whole Blood 153 mg/dL (75-99)
[2021-06-30] MEDS ORDERED: clonazePAM 0.5 MG TAB PO SCH (21:00)
[2021-06-30] MEDS: clonazePAM 0.5 MG TAB PO SCH (21:14)
[2021-07-01] MEDS: SODIUM CHLORIDE 0.9% 1,000 ML IV SCH (03:21)
[2021-07-01] MEDS: methylPREDNISolone SOD SUCCI 125 MG/2 ML VIAL IV SCH ×4 (05:51→23:51)
[2021-07-01 06:17] LABS: Glucose,Whole Blood 161 mg/dL (75-99)
[2021-07-01] MEDS: IPRATROPIUM-ALBUTEROL 3 ML NEB INHALATION PRN ×4 (07:15→20:27)
[2021-07-01] MEDS: BUDESONIDE 0.5 MG/2 ML NEBU INHALATION SCH ×2 (07:15→20:27)
[2021-07-01] MEDS: FORMOTEROL FUMARATE 20 MCG/2 ML NEBU INHALATION SCH ×2 (07:15→20:27)
[2021-07-01 08:41] LABS: Anisocytosis Slight; Basophils % (A) 0 %; Eosinophils % (A) 0 %; HCT 32.4 % (39.0-53.0); HGB 10.6 gm/dL (13.0-17.5); Lymphocytes # (A) 0.2 k/uL (1.0-4.8); Lymphocytes % (A) 0 %; MCH 34.8 pg (25.0-35.0); MCHC 32.7 g/dL (31.0-37.0); Macrocytosis Marked; Mean Platelet Volume 8.1; Monocytes # (A) 0.4 k/uL (0-1.0); Monocytes % (A) 1 %; Neutrophils # (A) 36.8 k/uL (1.3-7.7); Neutrophils % (A) 98 %; Platelet Count 166 k/uL (150-450); RBC 3.04 m/uL (4.30-5.90); RDW 17.9 % (11.5-15.5)
--- NOTE | 2021-07-01 08:47 | P.PN ---
Subjective July 01, 2021: Patient is feeling better today. He denies significant shortness of breath. He continues to wheeze. He wore BiPAP last night. He de nies any chest pains or pressures, nausea or vomiting. States his diet is improved. Juma is a pleasant white male,with a known history of COPD and smoking. He was found to have pericardial effsusion last year along with bilateral lower extremity edema . The patient had percutaneous pericardial drainage of 05/10/20 with cytology positive for metastatic adenocarcinoma, consistent with lung or upper GI primary. Patient had a prior history of prostate cancer with a radical prostatectomy in 03/12. PSA was normal. He had multiple tests including MRI, PET , colonoscopy failing to show other etiology. He is most recently been discontinued on immunotherapy and is been undergoing chemotherapy He is currently being followed by and Dr Trejo for the lung cancer, however there is no significant primary tumor found.. He came to the emergency room last night with complaints of increasing shortness of breath over the past day. He denies any current chest pains, pressures. Complains of shortness of breath. He complains of left upper back pain. He denies any nausea or vomiting. He states his appetite has not been good but he forces himself to eat. He reports ongoing bipedal edema below the knees. He is not wearing support hose that he was given his last admission. He has oxygen at home but no BiPAP. Currently is resting comfortably in his bed. His is at bedside. He indicates his mood has not been very good. His is concerned about him being depressed with his current situation. Objective - Vital Signs Vital signs: Vital Signs Temp 98.6 F 07/01/21 07:59 Pulse 84 07/01/21 07:59 Resp 22 07/01/21 07:59 BP 105/62 07/01/21 07:59 Pulse Ox 95 07/01/21 07:59 Intake & Output 06/30/21 07/01/21 07/01/21 18:59 06:59 18:59 Intake Total 1020 240 Output Total 300 300 Balance 720 -300 240 Weight 82 kg Intake: Oral 1020 240 Output: Urine 300 300 Other: Voiding Method Urinal Bedside Commode Urinal # Voids 2 # Bowel Movements 1 - Exam GENERAL: Alert and oriented 3, Sitting up in bed, no acute distress, bipap at bedside not currently in use NECK: Supple, No JVD. CARDIOVASCULAR: S1, S2 regular.No murmur, rub or gallop RESPIRATION: Breath sounds diminished in the bases. No rhonchi or crackles. Scattered Expiratory wheezing better air exchange today ABDOMEN: Soft, nontender . No guarding. no masses palpable.Bowel sounds heard. LEGS: +1edema. no calf tenderness. Jobst hos in place NERVOUS SYSTEM: Cranial N 2-12 grossly normal. No focal deficits. Strength and sensation grossly intact.. Skin: Warm and dry, no rash - Labs CBC & Chem 7: 06/30/21 10:38 06/30/21 10:38 Labs: Abnormal Lab Results - Last 24 Hours (Table) 06/30/21 06/30/21 06/30/21 Range/Units 10:38 10:38 20:10 WBC 42.8 H (3.8-10.6) k/uL RBC 3.01 L (4.30-5.90) m/uL Hgb 10.6 L (13.0-17.5) gm/dL Hct 32.6 L (39.0-53.0) % MCV 108.2 H (80.0-100.0) fL MCH 35.3 H (25.0-35.0) pg RDW 18.3 H (11.5-15.5) % Neutrophils # (Manual) 41.90 H (1.3-7.7) k/uL Lymphocytes # (Manual) 0.86 L (1.0-4.8) k/uL Macrocytosis Marked A Sodium 132 L (137-145) mmol/L Chloride 93 L (98-107) mmol/L Carbon Dioxide 34 H (22-30) mmol/L BUN 33 H (9-20) mg/dL Glucose 187 H (74-99) mg/dL POC Glucose (mg/dL) 153 H (75-99) mg/dL 07/01/21 Range/Units 06:12 WBC (3.8-10.6) k/uL RBC (4.30-5.90) m/uL Hgb (13.0-17.5) gm/dL Hct (39.0-53.0) % MCV (80.0-100.0) fL MCH (25.0-35.0) pg RDW (11.5-15.5) % Neutrophils # (Manual) (1.3-7.7) k/uL Lymphocytes # (Manual) (1.0-4.8) k/uL Macrocytosis Sodium (137-145) mmol/L Chloride (98-107) mmol/L Carbon Dioxide (22-30) mmol/L BUN (9-20) mg/dL Glucose (74-99) mg/dL POC Glucose (mg/dL) 161 H (75-99) mg/dL Microbiology - Last 24 Hours (Table) 06/30/21 02:24 Blood Culture - Preliminary Blood No Growth after 24 hours 06/30/21 02:39 Blood Culture - Preliminary Blood No Growth after 24 hours Assessment and Plan (1) Pleural effusion Current Visit: Yes Status: Acute Code(s): J90 - PLEURAL EFFUSION, NOT ELSEWHERE CLASSIFIED SNOMED Code(s): 48225234 (2) COPD exacerbation Current Visit: No Status: Acute Code(s): J44.1 - CHRONIC OBSTRUCTIVE PULMONARY DISEASE W (ACUTE) EXACERBATION SNOMED Code(s): 471475497 (3) Dehydration Current Visit: No Status: Acute Code(s): E86.0 - DEHYDRATION SNOMED Code(s): 73282827 (4) Edema of both lower extremities due to peripheral venous insufficiency Current Visit: No Status: Acute Code(s): I87.2 - VENOUS INSUFFICIENCY (CHRONIC) (PERIPHERAL) SNOMED Code(s): 56266266207868295 (5) History of nicotine dependence Current Visit: No Status: Acute Code(s): Z87.891 - PERSONAL HISTORY OF NICOTINE DEPENDENCE SNOMED Code(s): 672348243 (6) History of prostate cancer Current Visit: No Status: Acute Code(s): Z85.46 - PERSONAL HISTORY OF MALIGNANT NEOPLASM OF PROSTATE SNOMED Code(s): 807904277 (7) Leukocytosis Current Visit: No Status: Acute Code(s): D72.829 - ELEVATED WHITE BLOOD CELL COUNT, UNSPECIFIED SNOMED Code(s): 464877118 (8) Adenocarcinoma Current Visit: No Status: Chronic Priority: High Code(s): C80.1 - MALIGNANT (PRIMARY) NEOPLASM, UNSPECIFIED SNOMED Code(s): 091274596 (9) S/P chemotherapy, time since less than 4 weeks Current Visit: Yes Status: Acute Code(s): Z92.21 - PERSONAL HISTORY OF ANTINEOPLASTIC CHEMOTHERAPY SNOMED Code(s): 839164392 (10) Compression fracture of T6 vertebra Current Visit: Yes Status: Acute Code(s): S22.050A - WEDGE COMPRESSION FRACTURE OF T5-T6 VERTEBRA, INIT SNOMED Code(s): 671415637 (11) Compression fracture of L1 lumbar vertebra Current Visit: Yes Status: Acute Code(s): S32.010A - WEDGE COMPRESSION FRACTURE OF FIRST LUMBAR VERTEBRA, INIT SNOMED Code(s): 964003503 Plan: patient will be rehydrated further recommendations from Pulmonology and Hem/Onc repeat labs in am continue klonopin to q12hr con marisol Barahona to help with mood wait on Dr lundberg regarding compression fractures add novolog scale/ accuchecks QAC+HS steroids, IV antibiootics for COPD exacerbation he will be reevaluated in 24 hours
[2021-07-01 09:00] LABS: African American GFR (CKD) >90 (>60 ml/min/1.73 sqM); Anion Gap 5 mmol/L; Blood Urea Nitrogen 33 mg/dL (9-20); Carbon Dioxide 37 mmol/L (22-30); Chloride 92 mmol/L (98-107); Glucose 137 mg/dL (74-99); Magnesium 1.8 mg/dL (1.6-2.3); Non-African American GFR(CKD) 85 (>60 ml/min/1.73 sqM); Potassium 3.9 mmol/L (3.5-5.1); Sodium 134 mmol/L (137-145)
[2021-07-01 09:25] LABS: MCV 106.6 fL (80.0-100.0); WBC 37.4 k/uL (3.8-10.6)
[2021-07-01] MEDS: LIDOCAINE 5% PATCH TOPICAL SCH (09:59)
[2021-07-01] MEDS: PANTOPRAZOLE 40 MG TABLET PO SCH ×2 (10:00→20:33)
[2021-07-01] MEDS: CHLORTHALIDONE 25 MG TAB PO SCH (10:00)
[2021-07-01] MEDS: POTASSIUM CHLORIDE ER 20 MEQ TAB.ER PO SCH (10:00)
[2021-07-01] MEDS: clonazePAM 0.5 MG TAB PO SCH ×2 (10:00→20:33)
[2021-07-01] MEDS: ENOXAPARIN 40 MG/0.4 ML SYRINGE SQ SCH (10:00)
[2021-07-01] MEDS: FOLIC ACID 1 MG TAB PO SCH (10:00)
[2021-07-01] MEDS: MULTIVITAMINS, THERA 1 EACH TAB PO SCH (10:00)
[2021-07-01] MEDS: CYANOCOBALAMIN 500 MCG TAB PO SCH (10:00)
[2021-07-01] MEDS: DULoxetine HCL 30 MG CAPSULE.DR PO SCH (10:00)
--- NOTE | 2021-07-01 10:55 | P.CNOR ---
History of Present Illness - HPI Consult date: 07/01/21 History of present illness: This is a 75-year-old male who is admitted for shortness of breath and exacerbation of COPD. Patient is currently going through chemotherapy for lung cancer. Orthopedics is consulted due to compression fracture of T6 found on his chest CTA. Patient states that he does have some upper back pain on the left side. Patient states that he did have a fall about 2 months ago. Patient states that the pain is back is mild and tolerable. Patient states that he only has pain with certain movements and at rest he has no pain. Patient denies any radicular pain, numbness, weakness or tingling. Patient's past medical history significant for metastatic adenocarcinoma, GERD and history of pneumonia. Review of Systems See HPI. Past Medical History Past Medical History: Cancer, GERD/Reflux, Pneumonia Additional Past Medical History / Comment(s): 05/10/20 pericardial effusion with early cardiac tamponade/acute respiratory failure with pericardiocentesis/pneumonia/bilateral leg edema, cancer pericardial sac/chest l ymph nodes per pt/spouse-receiving chemotherapy-last time approximately 6 weeks ago/on hold for recent hernia surgery/then URI, past vertigo when first standing/syncope pt states d/t electrolyte disturbance, anemia with transfusions, lung nodules being monitored and thought possibly scarring from p revious pneumonia, prostate cancer with surgery, skin cancer with removals, gastritis, hiatal hernia, severe clausterphobia, 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 and has had past falls out of bed, bilateral LIME and tinnitis, past alcoholism per pt but quit drinking 31 plus yrs ago, shingles last week History of Any Multi-Drug Resistant Organisms: None Reported Past Surgical History: Joint Replacement, Prostate Surgery Additional Past Surgical History / Comment(s): 03/12/21 inguinal hernia surgery, 05/18/20 EGD, colonoscopy, robot assisted laparoscopic prostatectomy with bilateral lymph node dissection, skin cancer removals, rt hip replacement Past Anesthesia/Blood Transfusion Reactions: No Reported Reaction Additional Past Anesthesia/Blood Transfusion Reaction / Comm: Claustrophobic. Past Psychological History: No Psychological Hx Reported Additional Psychological History / Comment(s): Pt resides with his spouse and her adult son. Spouse and son are caregivers for patient. Pt unable to ambulate any distance, he is assisted to wheelchair. He has a nebulizer and home oxygen. He also has a pulse oximetry. His spouse/son drive him to [employer]. Smoking Status: Former smoker Past Alcohol Use History: None Reported Additional Past Alcohol Use History / Comment(s): Pt started smoking as a teen and quit 04/2020. Quit alcohol 31 yrs ago- states Hx of heavy alcohol use. Past Drug Use History: None Reported - Past Family History Mother Family Medical History: Cancer Additional Family Medical History / Comment(s): breast cancer, Etoh abuse. Father Family Medical History: COPD, Dementia, Musculoskeletal Disorder, Neurologic Disorder Additional Family Medical History / Comment(s): parkinson's, ETOH abuse Medications and Allergies Home Medications Medication Instructions Recorded Confirmed Type Umeclidinium Brm/Vilanterol Tr 1 puff INHALATION RT-DAILY 03/01/19 06/29/21 History [Anoro Ellipta 62.5-25 Mcg INH] clonazePAM [KlonoPIN] 0.5 mg PO HS 03/01/19 06/29/21 History Albuterol Nebulized [Ventolin 2.5 mg INHALATION RT-QID PRN 05/09/20 06/29/21 History Nebulized] Folic Acid 2 mg PO DAILY 07/13/20 06/29/21 History Chlorthalidone [Hygroton] 25 mg PO DAILY 03/07/21 06/29/21 History Multivitamins, Thera [Multivitamin 1 tab PO DAILY 03/07/21 06/29/21 History (formulary)] Pantoprazole [Protonix] 40 mg PO BID 03/07/21 06/29/21 History Albuterol Inhaler [Ventolin Hfa 2 puff INHALATION RT-QID PRN 04/15/21 06/29/21 History Inhaler] Cyanocobalamin (Vitamin B-12) 1,000 mcg PO DAILY 04/15/21 06/29/21 History [Vitamin B-12] Potassium Chloride ER [K-Dur 20] 20 meq PO DAILY 06/29/21 06/29/21 History Allergies Allergy/AdvReac Type Severity Reaction Status Date / Time Sulfa (Sulfonamide Allergy Unknown Rash/Hives Verified 06/29/21 21:10 Antibiotics) tetracycline Allergy Unknown "Fuzzy Verified 06/29/21 21:10 headed" Physical Examination On exam patient is sitting comfortably in bed in no acute distress. Patient is alert and oriented 3. There is no tenderness to palpation directly over the cervical, thoracic or lumbar midlines. There is no step-off or deformity. There is no erythema or swelling. Skin is intact. There is some mild tenderness to palpation over the left side paraspinal muscles of the thoracic spine. Patient has good range of motion of bilateral upper and lower extremitie s. Patient is able to actively sit up in bed without any pain. Sensation intact. Vascular status and circulatory status are intact. Results A CTA of the chest dated 06/30/2021 shows: Old L1 compression fracture unchanged. There is a T6 compression fracture that appears new compared to old exam on 04/15/2021. Left pleural effusion slightly increased compared to old exam. - Labs Labs: Abnormal Lab Results - Last 24 Hours (Table) 06/30/21 06/30/21 06/30/21 Range/Units 10:38 10:38 20:10 WBC 42.8 H (3.8-10.6) k/uL RBC 3.01 L (4.30-5.90) m/uL Hgb 10.6 L (13.0-17.5) gm/dL Hct 32.6 L (39.0-53.0) % MCV 108.2 H (80.0-100.0) fL MCH 35.3 H (25.0-35.0) pg RDW 18.3 H (11.5-15.5) % Neutrophils # (1.3-7.7) k/uL Neutrophils # (Manual) 41.90 H (1.3-7.7) k/uL Lymphocytes # (1.0-4.8) k/uL Lymphocytes # (Manual) 0.86 L (1.0-4.8) k/uL Macrocytosis Marked A Sodium 132 L (137-145) mmol/L Chloride 93 L (98-107) mmol/L Carbon Dioxide 34 H (22-30) mmol/L BUN 33 H (9-20) mg/dL Glucose 187 H (74-99) mg/dL POC Glucose (mg/dL) 153 H (75-99) mg/dL 07/01/21 07/01/21 07/01/21 Range/Units 06:12 07:18 07:18 WBC 37.4 H (3.8-10.6) k/uL RBC 3.04 L (4.30-5.90) m/uL Hgb 10.6 L (13.0-17.5) gm/dL Hct 32.4 L (39.0-53.0) % MCV 106.6 H (80.0-100.0) fL MCH (25.0-35.0) pg RDW 17.9 H (11.5-15.5) % Neutrophils # 36.8 H (1.3-7.7) k/uL Neutrophils # (Manual) (1.3-7.7) k/uL Lymphocytes # 0.2 L (1.0-4.8) k/uL Lymphocytes # (Manual) (1.0-4.8) k/uL Macrocytosis Marked A Sodium 134 L (137-145) mmol/L Chloride 92 L (98-107) mmol/L Carbon Dioxide 37 H (22-30) mmol/L BUN 33 H (9-20) mg/dL Glucose 137 H (74-99) mg/dL POC Glucose (mg/dL) 161 H (75-99) mg/dL Microbiology - Last 24 Hours (Table) 06/30/21 02:24 Blood Culture - Preliminary Blood No Growth after 24 hours 06/30/21 02:39 Blood Culture - Preliminary Blood No Growth after 24 hours H & H 06/29/21 06/30/21 07/01/21 Range/Units 21:18 10:38 07:18 Hgb 11.8 L 10.6 L 10.6 L (13.0-17.5) gm/dL Hct 35.0 L 32.6 L 32.4 L (39.0-53.0) % Coagulation 06/29/21 Range/Units 21:18 INR 0.9 (<1.2) Result Diagrams: 07/01/21 07:18 07/01/21 07:18 Assessment and Plan (1) Chronic obstructive pulmonary disease (COPD) Current Visit: Yes Status: Acute Code(s): J44.9 - CHRONIC OBSTRUCTIVE PULMONARY DISEASE, UNSPECIFIED SNOMED Code(s): 76618723 (2) Compression fracture of L1 lumbar vertebra Current Visit: Yes Status: Acute Code(s): S32.010A - WEDGE COMPRESSION FRACTURE OF FIRST LUMBAR VERTEBRA, INIT SNOMED Code(s): 326225342 (3) Compression fracture of T6 vertebra Current Visit: Yes Status: Acute Code(s): S22.050A - WEDGE COMPRESSION FRACTURE OF T5-T6 VERTEBRA, INIT SNOMED Code(s): 667226619 (4) Pleural effusion Current Visit: Yes Status: Acute Code(s): J90 - PLEURAL EFFUSION, NOT ELSEWHERE CLASSIFIED SNOMED Code(s): 51668919 Plan: 1. CTA is reviewed. The option for a TLSO brace is discussed at bedside with the patient today. Patient is currently admitted for shortness of breath and declines a brace at this time. 2. No surgical intervention planned. We will continue to follow.
[2021-07-01 11:23] LABS: Glucose,Whole Blood 218 mg/dL (75-99)
[2021-07-01] MEDS: AZITHROMYCIN 500 MG in SODIUM CHLORIDE 0.9% 250 ML IVPB SCH (11:31)
[2021-07-01] MEDS: INSULIN ASPART (NovoLOG) 100 UNIT/ML VIAL SQ SCH ×3 (11:32→20:33)
--- NOTE | 2021-07-01 12:42 | P.PN ---
Subjective Progress Note Date: 07/01/21 Principal diagnosis: Shortness of breath This is a very pleasant 75-year-old gentleman who follows with Dr. Ortega is his primary care provider. He has a history of metastatic adenocarcinoma of the lungs. He also has a history of chronic obstructive pulmonary disease with an F EV1 value 34% of predicted. He follows with Dr. Nicole in our office for the same. He received chemotherapy this week and the next day he developed increasing shortness of breath cough and congestion and presented to the emergency room yesterday for the same. Chest x-ray revealed small chronic pleural effusion slightly increased compared to previous on 04/15/2021. CT angiogram ruled out pulmonary embolism. There is noted pulmonary emphysema. There is a stellate nodule in the right upper lobe not change compared to previous on 04/15/2021. White count 42.8. Hemoglobin 10.6. Sodium 132. Potassium 3.8. Creatinine 1.06. Malagon virus not detected. He is seen today in consultation on the selective care unit. He is currently sitting up in bed. He is on BiPAP 12/5 and 28% FiO2 and maintaining O2 saturations in the 90s. He is awake and alert. He is feeling a bit better today compared to yesterday. On 07/01/2021 patient seen in follow-up on selective care unit, he is still cou ghing, and wheezing, however she states that she is feeling better and breathing a little easier today, he is off BiPAP support, is currently on 3 L of oxygen his pulse ox of 97%, he is afebrile, hemodynamically he is stable, his had no acute events overnight. No new chest x-ray, his chest x-ray on admission showed small chronic pleural effusion, CTA chest showed no evidence of pulmonary embolism, there was pulmonary emphysema, and a small left pleural effusion was felt to be slightly increased to old exam. Today's labs have been reviewed, his white blood cell count is trending down and is down to 37.4 on today's labs, hemoglobin is stable at 10.6, sodium is 134, potassium is 3.9, chloride is 92, CO2 is 34, BUN is 33 creatinine 0.88. He was COVID 19 negative. He is currently on a combination of azithromycin and Rocephin, he is on nebulized bronchodilators, IV steroids in the form of Solu-Medrol 60 mg every 6 hours, he is on home dose chlorthalidone, 20 mg daily. Renal function is stable, has had no nausea vomiting or diarrhea. He is tolerating oral intake. Objective - Vital Signs Vital signs: Vital Signs Temp 99 F 07/01/21 11:39 Pulse 94 07/01/21 11:39 Resp 22 07/01/21 11:39 BP 130/58 07/01/21 11:39 Pulse Ox 97 07/01/21 11:39 Intake & Output 06/30/21 07/01/21 07/01/21 18:59 06:59 18:59 Intake Total 1020 490 Output Total 300 300 200 Balance 720 -300 290 Weight 82 kg Intake: Intake, IV Titration 250 Amount Azithromycin 500 mg In 250 Sodium Chloride 0.9% 250 ml @ 250 mls/hr IVPB Q24H [facility] Rx#:[id number] Oral 1020 240 Output: Urine 300 300 200 Other: Voiding Method Urinal Bedside Commode Urinal # Voids 2 # Bowel Movements 1 - Exam GENERAL EXAM: Alert, very pleasant, 75-year-old white male, on 3 L of oxygen and pulse ox of 97 percent comfortable in no apparent distress. HEAD: Normocephalic/atraumatic. EYES: Normal reaction of pupils, equal size. Conjunctiva pink, sclera white. NOSE: Clear with pink turbinates. THROAT: No erythema or exudates. NECK: No masses, no JVD, no thyroid enlargement, no adenopathy. CHEST: No chest wall deformity. Symmetrical expansion. LUNGS: Equal air entry with diffuse rhonchi and wheezing CVS: Regular rate and rhythm, normal S1 and S2, no gallops, no murmurs, no rubs ABDOMEN: Soft, nontender. No hepatosplenomegaly, normal bowel sounds, no guarding or rigidity. EXTREMITIES: No clubbing, no edema, no cyanosis, 2+ pulses and upper and lower extremities. MUSCULOSKELETAL: Muscle strength and tone normal. SPINE: No scoliosis or deformity SKIN: No rashes CENTRAL NERVOUS SYSTEM: Alert and oriented -3. No focal deficits, tone is normal in all 4 extremities. PSYCHIATRIC: Alert and oriented -3. Appropriate affect. Intact judgment and insight. - Labs CBC & Chem 7: 07/01/21 07:18 07/01/21 07:18 Labs: Abnormal Lab Results - Last 24 Hours (Table) 06/30/21 07/01/21 07/01/21 Range/Units 20:10 06:12 07:18 WBC 37.4 H (3.8-10.6) k/uL RBC 3.04 L (4.30-5.90) m/uL Hgb 10.6 L (13.0-17.5) gm/dL Hct 32.4 L (39.0-53.0) % MCV 106.6 H (80.0-100.0) fL RDW 17.9 H (11.5-15.5) % Neutrophils # 36.8 H (1.3-7.7) k/uL Lymphocytes # 0.2 L (1.0-4.8) k/uL Macrocytosis Marked A Sodium (137-145) mmol/L Chloride (98-107) mmol/L Carbon Dioxide (22-30) mmol/L BUN (9-20) mg/dL Glucose (74-99) mg/dL POC Glucose (mg/dL) 153 H 161 H (75-99) mg/dL 07/01/21 07/01/21 Range/Units 07:18 11:21 WBC (3.8-10.6) k/uL RBC (4.30-5.90) m/uL Hgb (13.0-17.5) gm/dL Hct (39.0-53.0) % MCV (80.0-100.0) fL RDW (11.5-15.5) % Neutrophils # (1.3-7.7) k/uL Lymphocytes # (1.0-4.8) k/uL Macrocytosis Sodium 134 L (137-145) mmol/L Chloride 92 L (98-107) mmol/L Carbon Dioxide 37 H (22-30) mmol/L BUN 33 H (9-20) mg/dL Glucose 137 H (74-99) mg/dL POC Glucose (mg/dL) 218 H (75-99) mg/dL Microbiology - Last 24 Hours (Table) 06/30/21 02:24 Blood Culture - Preliminary Blood No Growth after 24 hours 06/30/21 02:39 Blood Culture - Preliminary Blood No Growth after 24 hours Assessment and Plan Plan: Assessment: #1. Acute hypoxic respiratory failure secondary to an acute exacerbation of COPD, COVID-19 PCR was negative, chest x-ray showed small chronic left pleural effusion, CTA chest was negative for PE, it showed chronic emphysematous changes, and slightly increased chronic left pleural effusion. #2. History of metastatic adenocarcinoma of the lungs, currently on chemotherapy, last treatment was on 06/28/2021 #3. Severe COPD, stage III, with baseline FEV1 of 34% of predicted #4. Right upper lobe spiculated lesion measuring 1 cm, stable compared to previous CT chest #5. 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 History of prostate cancer #7. REM behavioral disorder maintained on Klonopin #8. Previous history of tobacco dependence #9. Obstructive sleep apnea mild, with AHI of 6, not on CPAP therapy Plan: Continue current medical treatment Continue steroids Continue antibiotics and breathing treatments BiPAP support as needed and at bedtime Patient is feeling better on today's exam However still dyspneic and bronchospastic Send a sputum culture We'll continue to follow I performed a history & physical examination of the patient and discussed their management with my nurse practitioner, Kandi Saleem. I reviewed the nurse practitioner's note and agree with the documented findings and plan of care. Lung sounds are positive fordiminished breath sounds throughout the lung coronel. The findings and the impression was discussed with the patient. I attest to the documentation by the nurse practitioner. Time with Patient: Less than 30
[2021-07-01 16:46] LABS: Glucose,Whole Blood 141 mg/dL (75-99)
[2021-07-01 20:21] LABS: Glucose,Whole Blood 180 mg/dL (75-99)
--- NOTE | 2021-07-01 21:11 | P.PN ---
Subjective Progress Note Date: 07/01/21 Objective - Vital Signs Vital signs: Vital Signs Temp 97.8 F 07/01/21 20:30 Pulse 90 07/01/21 20:51 Resp 17 07/01/21 20:30 BP 143/61 07/01/21 20:30 Pulse Ox 98 07/01/21 20:30 Intake & Output 07/01/21 07/01/21 07/02/21 06:59 18:59 06:59 Intake Total 1210 Output Total 300 200 Balance -300 1010 Weight 82 kg Intake: Intake, IV Titration 250 Amount Azithromycin 500 mg In 250 Sodium Chloride 0.9% 250 ml @ 250 mls/hr IVPB Q24H [facility] Rx#:[id number] Oral 960 Output: Urine 300 200 Other: Voiding Method Bedside Commode Bedside Commode Urinal Urinal # Voids 1 - Exam - Constitutional General appearance: cooperative, no acute distress - EENT Eyes: EOMI, PERRLA ENT: NA/AT, normal oropharynx - Neck Neck: normal ROM - Respiratory Respiratory: bilateral: diminished, rhonchi - Gastrointestinal General gastrointestinal: soft - Integumentary Integumentary: pale - Neurologic Neurologic: CNII-XII intact - Musculoskeletal Musculoskeletal: generalized weakness, strength equal bilaterally - Psychiatric Psychiatric: A&O x's 3, appropriate affect, intact judgment & insight - Labs CBC & Chem 7: 07/01/21 07:18 07/01/21 07:18 Labs: Abnormal Lab Results - Last 24 Hours (Table) 07/01/21 07/01/21 07/01/21 Range/Units 06:12 07:18 07:18 WBC 37.4 H (3.8-10.6) k/uL RBC 3.04 L (4.30-5.90) m/uL Hgb 10.6 L (13.0-17.5) gm/dL Hct 32.4 L (39.0-53.0) % MCV 106.6 H (80.0-100.0) fL RDW 17.9 H (11.5-15.5) % Neutrophils # 36.8 H (1.3-7.7) k/uL Lymphocytes # 0.2 L (1.0-4.8) k/uL Macrocytosis Marked A Sodium 134 L (137-145) mmol/L Chloride 92 L (98-107) mmol/L Carbon Dioxide 37 H (22-30) mmol/L BUN 33 H (9-20) mg/dL Glucose 137 H (74-99) mg/dL POC Glucose (mg/dL) 161 H (75-99) mg/dL 07/01/21 07/01/21 07/01/21 Range/Units 11:21 16:44 20:20 WBC (3.8-10.6) k/uL RBC (4.30-5.90) m/uL Hgb (13.0-17.5) gm/dL Hct (39.0-53.0) % MCV (80.0-100.0) fL RDW (11.5-15.5) % Neutrophils # (1.3-7.7) k/uL Lymphocytes # (1.0-4.8) k/uL Macrocytosis Sodium (137-145) mmol/L Chloride (98-107) mmol/L Carbon Dioxide (22-30) mmol/L BUN (9-20) mg/dL Glucose (74-99) mg/dL POC Glucose (mg/dL) 218 H 141 H 180 H (75-99) mg/dL Microbiology - Last 24 Hours (Table) 07/01/21 08:00 Sputum Culture - Preliminary Sputum 06/30/21 02:24 Blood Culture - Preliminary Blood No Growth after 24 hours 06/30/21 02:39 Blood Culture - Preliminary Blood No Growth after 24 hours Assessment and Plan Plan: Assessment and Plan (1) COPD exacerbation Current Visit: Yes Status: Acute Code(s): J44.1 - CHRONIC OBSTRUCTIVE PULMONARY DISEASE W (ACUTE) EXACERBATION SNOMED Code(s): 957568280 (2) Adenocarcinoma Current Visit: No Status: Chronic Priority: High Code(s): C80.1 - MALIGNANT (PRIMARY) NEOPLASM, UNSPECIFIED SNOMED Code(s): 339999640 Plan: Hold chemo and re-evaluate after hospitalization for possible treatment change Continue to monitor CBC and provide supportive care PRN
[2021-07-02] MEDS: SODIUM CHLORIDE 0.9% 1,000 ML IV SCH (04:52)
[2021-07-02 06:25] LABS: Glucose,Whole Blood 148 mg/dL (75-99)
[2021-07-02] MEDS: methylPREDNISolone SOD SUCCI 125 MG/2 ML VIAL IV SCH ×4 (06:32→23:21)
[2021-07-02] MEDS: INSULIN ASPART (NovoLOG) 100 UNIT/ML VIAL SQ SCH ×4 (06:32→20:19)
[2021-07-02 08:13] LABS: Anisocytosis Slight; Basophils % (A) 0 %; Eosinophils % (A) 0 %; HCT 30.5 % (39.0-53.0); HGB 10.2 gm/dL (13.0-17.5); Lymphocytes # (A) 0.2 k/uL (1.0-4.8); Lymphocytes % (A) 1 %; MCH 35.1 pg (25.0-35.0); MCHC 33.3 g/dL (31.0-37.0); MCV 105.2 fL (80.0-100.0); Macrocytosis Marked; Mean Platelet Volume 8.3; Monocytes # (A) 0.3 k/uL (0-1.0); Monocytes % (A) 1 %; Neutrophils # (A) 25.5 k/uL (1.3-7.7); Neutrophils % (A) 98 %; Platelet Count 139 k/uL (150-450); RDW 18.1 % (11.5-15.5)
[2021-07-02] MEDS: FORMOTEROL FUMARATE 20 MCG/2 ML NEBU INHALATION SCH ×2 (08:26→19:57)
[2021-07-02] MEDS: BUDESONIDE 0.5 MG/2 ML NEBU INHALATION SCH ×2 (08:26→19:45)
[2021-07-02] MEDS: IPRATROPIUM-ALBUTEROL 3 ML NEB INHALATION PRN ×2 (08:26→19:45)
[2021-07-02 08:32] LABS: African American GFR (CKD) >90 (>60 ml/min/1.73 sqM); Anion Gap 4 mmol/L; Blood Urea Nitrogen 39 mg/dL (9-20); Calcium 8.9 mg/dL (8.4-10.2); Carbon Dioxide 34 mmol/L (22-30); Chloride 92 mmol/L (98-107); Glucose 131 mg/dL (74-99); Non-African American GFR(CKD) 85 (>60 ml/min/1.73 sqM); Potassium 4.2 mmol/L (3.5-5.1); Sodium 130 mmol/L (137-145)
[2021-07-02] MEDS: MULTIVITAMINS, THERA 1 EACH TAB PO SCH (08:56)
[2021-07-02] MEDS: CHLORTHALIDONE 25 MG TAB PO SCH (08:56)
[2021-07-02] MEDS: CYANOCOBALAMIN 500 MCG TAB PO SCH (08:56)
[2021-07-02] MEDS: clonazePAM 0.5 MG TAB PO SCH ×2 (08:56→20:19)
[2021-07-02] MEDS: FOLIC ACID 1 MG TAB PO SCH (08:56)
[2021-07-02] MEDS: ENOXAPARIN 40 MG/0.4 ML SYRINGE SQ SCH (08:57)
[2021-07-02] MEDS: DULoxetine HCL 30 MG CAPSULE.DR PO SCH (08:57)
[2021-07-02] MEDS: PANTOPRAZOLE 40 MG TABLET PO SCH ×2 (08:57→20:19)
[2021-07-02] MEDS: POTASSIUM CHLORIDE ER 20 MEQ TAB.ER PO SCH (08:57)
[2021-07-02] MEDS: LIDOCAINE 5% PATCH TOPICAL SCH (08:57)
--- NOTE | 2021-07-02 09:15 | P.PN ---
Progress Note - Text Progress Note Date: 07/02/21 Orthopedic spine: History of present illness: Patient is a very pleasant 75-year-old male who is seen and examined at bedside for follow-up evaluation regards to his thoracolumbar spine. He has been admitted to the hospital for further treatment evaluation for shortness of breath with exacerbation of COPD. Patient states his thoracolumbar pain is adequately controlled. He is known to have compression fracture deformity at T6 and L1. Today's states his pain is most significant at L1. He is known to have metastatic adenocarcinoma and follows with oncology. Chemotherapy is currently on hold. At this time he denies any lower extremity weakness or radiculopathy bilaterally. He does have some chronic swelling of the lower extremities. He states again today he declines any bracing. He states his pain is well controlled at rest. He does admit some increased pain with bending and twisting activities. He states he is unable to perform any strenuous activities given his significant shortness of breath and COPD. Physical exam: Patient is awake, alert, and oriented 3 Vital signs stable Good chest excursion with deep inspiration and expiration Abdomen soft nontender Examination of thoracolumbar spine reveals skin is intact with no abrasions, lacerations, or bruises; no erythema, purulence or signs of infection No significant pain with palpation over the mid thoracic spine Some pain on palpation at the thoracolumbar junction along the midline Dorsiflexion, plantarflexion, and extensor hallucis longus positive sustained bilaterally Lower extremity strength 5/5 bilaterally Evidence of some generalized swelling of the lower extremities most significant at the ankles and feet No lower extremity hyperreflexia bilaterally No signs or symptoms of DVT; no calf pain No pain with internal and external rotation of the hips bilaterally Neurovascularly intact Pertinent studies: CT of the chest on 06/30/2021: T6 mild wedging anterior compression fracture deformity approximate 20% height loss which appears new as compared to previous study taken on 04/15/2021; L1 compression fracture deformity approximately 50% anterior wedging which is unchanged as compared to previous study taken on 04/15/2021 Assessment: Acute T6 mild wedging compression fracture deformity Chronic L1 wedge compression fracture for with approximately 50% height loss COPD exacerbation Shortness of breath Metastatic adenocarcinoma Plan: 1. After further discussion with the patient, physical examination of the patient, and review of imaging, we'll, plan to continue conservative treatment regards to his thoracolumbar spine. He does have compression fracture deformities at T6 and L1. T6 appears acute nature as compared to previous imaging while the L1 compression fracture deformity appears chronic. He states given his shortness of breath and that his pain is fairly well controlled, he declines any bracing at this time. He states he did previously sustain a fall approximately 2 months ago. He has had some improvement in his pain since that time. He denies any lower extremity weakness radiculopathy bilaterally. He is been avoiding all strenuous activities. We did discuss his fracture should continue to heal with time. He is not currently experiencing any significant pain at T6. He currently has more increased pain at L1. Given that he is declining bracing, we discussed again in detail he should he should avoid excessive bending, twisting, lifting activities. We will continue to follow him in the outpatient setting for further treatment evaluation. We did discuss from orthopedic spine standpoint he is clear for discharge once cleared by multiple other medical providers. Patient may follow-up with Marc Vega PA-C or Dr. Jacobo Luna at [facility] in 2-3 weeks following discharge. 2. Patient will continue be seen again by multiple other medical providers including medicine and oncology
[2021-07-02 11:38] LABS: Glucose,Whole Blood 132 mg/dL (75-99)
[2021-07-02] MEDS ORDERED: AZITHROMYCIN 500 MG TAB PO SCH (12:00)
--- NOTE | 2021-07-02 12:04 | P.PN ---
Subjective Progress Note Date: 07/02/21 Principal diagnosis: Shortness of breath This is a very pleasant 75-year-old gentleman who follows with Dr. Ortega is his primary care provider. He has a history of metastatic adenocarcinoma of the lungs. He also has a history of chronic obstructive pulmonary disease with an F EV1 value 34% of predicted. He follows with Dr. Nicole in our office for the same. He received chemotherapy this week and the next day he developed increasing shortness of breath cough and congestion and presented to the emergency room yesterday for the same. Chest x-ray revealed small chronic pleural effusion slightly increased compared to previous on 04/15/2021. CT angiogram ruled out pulmonary embolism. There is noted pulmonary emphysema. There is a stellate nodule in the right upper lobe not change compared to previous on 04/15/2021. White count 42.8. Hemoglobin 10.6. Sodium 132. Potassium 3.8. Creatinine 1.06. Malagon virus not detected. He is seen today in consultation on the selective care unit. He is currently sitting up in bed. He is on BiPAP 12/5 and 28% FiO2 and maintaining O2 saturations in the 90s. He is awake and alert. He is feeling a bit better today compared to yesterday. On 07/01/2021 patient seen in follow-up on selective care unit, he is still cou ghing, and wheezing, however she states that she is feeling better and breathing a little easier today, he is off BiPAP support, is currently on 3 L of oxygen his pulse ox of 97%, he is afebrile, hemodynamically he is stable, his had no acute events overnight. No new chest x-ray, his chest x-ray on admission showed small chronic pleural effusion, CTA chest showed no evidence of pulmonary embolism, there was pulmonary emphysema, and a small left pleural effusion was felt to be slightly increased to old exam. Today's labs have been reviewed, his white blood cell count is trending down and is down to 37.4 on today's labs, hemoglobin is stable at 10.6, sodium is 134, potassium is 3.9, chloride is 92, CO2 is 34, BUN is 33 creatinine 0.88. He was COVID 19 negative. He is currently on a combination of azithromycin and Rocephin, he is on nebulized bronchodilators, IV steroids in the form of Solu-Medrol 60 mg every 6 hours, he is on home dose chlorthalidone, 20 mg daily. Renal function is stable, has had no nausea vomiting or diarrhea. He is tolerating oral intake. On 07/02/2021 patient seen in follow-up on selective care unit, he is awake and alert, oriented 3, vital signs have been stable, he is currently on 3 L of oxygen pulse ox is 95%. He did wear BiPAP support last night for a few hours, was switched over to nasal cannula, overall he states he is breathing comfortably, and his breathing has improved since admission, no complaints of chest discomfort, no fever or chills. He does get short of breath with exertion. No new chest x-ray today. Patient currently remains on combination of antibiotics with azithromycin and Rocephin, he is on IV Solu-Medrol 60 mg every 6 hours and nebulized bronchodilators. Today's labs have been reviewed and his white blood cell count is improving and is down to 26 on today's labs, hemoglobin is 10.2. Serum sodium is down to 130, potassium is 4.2, chloride is 92, CO2 is 34, B1 is 39 creatinine 0.89. Pro-calcitonin level came back negative at 0.08. His blood and sputum cultures have been negative thus far. Objective - Vital Signs Vital signs: Vital Signs Temp 96.3 F L 07/02/21 08:00 Pulse 82 07/02/21 08:43 Resp 14 07/02/21 03:50 BP 130/61 07/02/21 08:00 Pulse Ox 95 07/02/21 08:00 Intake & Output 07/01/21 07/02/21 07/02/21 18:59 06:59 18:59 Intake Total 1210 240 Output Total 200 530 Balance 1010 -530 240 Weight 84.5 kg Intake: Intake, IV Titration 250 Amount Azithromycin 500 mg In 250 Sodium Chloride 0.9% 250 ml @ 250 mls/hr IVPB Q24H [facility] Rx#:[id number] Oral 960 240 Output: Urine 200 530 Other: Voiding Method Bedside Commode Urinal # Voids 1 - Exam GENERAL EXAM: Alert, very pleasant, 75-year-old white male, on 3 L of oxygen and pulse ox of 97 percent comfortable in no apparent distress. HEAD: Normocephalic/atraumatic. EYES: Normal reaction of pupils, equal size. Conjunctiva pink, sclera white. NOSE: Clear with pink turbinates. THROAT: No erythema or exudates. NECK: No masses, no JVD, no thyroid enlargement, no adenopathy. CHEST: No chest wall deformity. Symmetrical expansion. LUNGS: Equal air entry with diffuse rhonchi and wheezing CVS: Regular rate and rhythm, normal S1 and S2, no gallops, no murmurs, no rubs ABDOMEN: Soft, nontender. No hepatosplenomegaly, normal bowel sounds, no guarding or rigidity. EXTREMITIES: No clubbing, no edema, no cyanosis, 2+ pulses and upper and lower extremities. MUSCULOSKELETAL: Muscle strength and tone normal. SPINE: No scoliosis or deformity SKIN: No rashes CENTRAL NERVOUS SYSTEM: Alert and oriented -3. No focal deficits, tone is normal in all 4 extremities. PSYCHIATRIC: Alert and oriented -3. Appropriate affect. Intact judgment and insight. - Labs CBC & Chem 7: 07/02/21 07:44 07/02/21 07:44 Labs: Abnormal Lab Results - Last 24 Hours (Table) 07/01/21 07/01/21 07/02/21 Range/Units 16:44 20:20 06:24 WBC (3.8-10.6) k/uL RBC (4.30-5.90) m/uL Hgb (13.0-17.5) gm/dL Hct (39.0-53.0) % MCV (80.0-100.0) fL MCH (25.0-35.0) pg RDW (11.5-15.5) % Plt Count (150-450) k/uL Neutrophils # (1.3-7.7) k/uL Lymphocytes # (1.0-4.8) k/uL Macrocytosis Sodium (137-145) mmol/L Chloride (98-107) mmol/L Carbon Dioxide (22-30) mmol/L BUN (9-20) mg/dL Glucose (74-99) mg/dL POC Glucose (mg/dL) 141 H 180 H 148 H (75-99) mg/dL 07/02/21 07/02/21 07/02/21 Range/Units 07:44 07:44 11:36 WBC 26.0 H (3.8-10.6) k/uL RBC 2.90 L (4.30-5.90) m/uL Hgb 10.2 L (13.0-17.5) gm/dL Hct 30.5 L (39.0-53.0) % MCV 105.2 H (80.0-100.0) fL MCH 35.1 H (25.0-35.0) pg RDW 18.1 H (11.5-15.5) % Plt Count 139 L (150-450) k/uL Neutrophils # 25.5 H (1.3-7.7) k/uL Lymphocytes # 0.2 L (1.0-4.8) k/uL Macrocytosis Marked A Sodium 130 L (137-145) mmol/L Chloride 92 L (98-107) mmol/L Carbon Dioxide 34 H (22-30) mmol/L BUN 39 H (9-20) mg/dL Glucose 131 H (74-99) mg/dL POC Glucose (mg/dL) 132 H (75-99) mg/dL Microbiology - Last 24 Hours (Table) 06/30/21 02:39 Blood Culture - Preliminary Blood No Growth after 48 hours 06/30/21 02:24 Blood Culture - Preliminary Blood No Growth after 48 hours 07/01/21 08:00 Gram Stain - Preliminary Sputum Sputum Culture - Preliminary Assessment and Plan Plan: Assessment: #1. Acute hypoxic respiratory failure secondary to an acute exacerbation of COPD, COVID-19 PCR was negative, chest x-ray showed small chronic left pleural effusion, CTA chest was negative for PE, it showed chronic emphysematous changes, and slightly increased chronic left pleural effusion. #2. History of metastatic adenocarcinoma of the lungs, currently on chemotherapy, last treatment was on 06/28/2021 #3. Severe COPD, stage III, with baseline FEV1 of 34% of predicted #4. Right upper lobe spiculated lesion measuring 1 cm, stable compared to previous CT chest #5. 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 History of prostate cancer #7. REM behavioral disorder maintained on Klonopin #8. Previous history of tobacco dependence #9. Obstructive sleep apnea mild, with AHI of 6, not on CPAP therapy #10. 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 I reviewed the nurse pr actitioner's note and agree with the documented findings and plan of care. Lung sounds are positive fordiminished breath sounds throughout the lung coronel. The findings and the impression was discussed with the patient. I attest to the documentation by the nurse practitioner. Time with Patient: Less than 30
--- NOTE | 2021-07-02 12:45 | P.PN ---
Subjective Progress Note Date: 07/02/21 This is a 75-year-old gentleman admitted with acute exacerbation of COPD, acute hypoxic respiratory failure, history of metastatic adenocarcinoma of the lungs with last chemotherapy 06/28/2021, T6 ,L1 compression fractures and multiple other medical issues. Evaluated by orthopedic surgery, conservative treatment recommended with bracing. Patient declining brace. Occasional productive cough with yellow sputum, sputum culture pending. Maintained on Zithromax, Rocephin, IV steroids, nebulized bronchodilators. WBC trending down, afebrile. Preliminary blood cultures no growth at 48 hours. Pro-calcitonin level negative.On and off BiPAP throughout the night .Maintaining O2 sats in the 90s on 3 L nasal cannula. Complains of exertional shortness of breath, states at baseline. Denies nausea ,vomiting or diarrhea. Evaluated by oncology, recommending holding chemo and reevaluating her possible treatment change outpatient. Sodium 1:30. Renal function stable. Objective - Vital Signs Vital signs: Vital Signs Temp 96.3 F L 07/02/21 08:00 Pulse 82 07/02/21 08:43 Resp 14 07/02/21 03:50 BP 130/61 07/02/21 08:00 Pulse Ox 95 07/02/21 08:00 Intake & Output 07/01/21 07/02/21 07/02/21 18:59 06:59 18:59 Intake Total 1210 240 Output Total 200 530 Balance 1010 -530 240 Weight 84.5 kg Intake: Intake, IV Titration 250 Amount Azithromycin 500 mg In 250 Sodium Chloride 0.9% 250 ml @ 250 mls/hr IVPB Q24H [facility] Rx#:[id number] Oral 960 240 Output: Urine 200 530 Other: Voiding Method Bedside Commode Urinal # Voids 1 - Exam - Exam GENERAL: Alert and oriented 3, Sitting up in bed, no acute distress, bipap at bedside not currently in use NECK: Supple, No JVD. CARDIOVASCULAR: S1, S2 regular.No murmur, rub or gallop RESPIRATION: Breath sounds diminished in the bases. Scattered diffuse rhonchi with Expiratory wheezing. ABDOMEN: Soft, nontender . No guarding. no masses palpable.Bowel sounds heard. LEGS: no edema ( legs elevated, up on bed). no calf tenderness. Jobst hose in place NERVOUS SYSTEM: Cranial N 2-12 grossly normal. No focal deficits. Strength and sensation grossly intact. Skin: Warm and dry, no rash - Labs CBC & Chem 7: 07/02/21 07:44 07/02/21 07:44 Labs: Abnormal Lab Results - Last 24 Hours (Table) 07/01/21 07/01/21 07/02/21 Range/Units 16:44 20:20 06:24 WBC (3.8-10.6) k/uL RBC (4.30-5.90) m/uL Hgb (13.0-17.5) gm/dL Hct (39.0-53.0) % MCV (80.0-100.0) fL MCH (25.0-35.0) pg RDW (11.5-15.5) % Plt Count (150-450) k/uL Neutrophils # (1.3-7.7) k/uL Lymphocytes # (1.0-4.8) k/uL Macrocytosis Sodium (137-145) mmol/L Chloride (98-107) mmol/L Carbon Dioxide (22-30) mmol/L BUN (9-20) mg/dL Glucose (74-99) mg/dL POC Glucose (mg/dL) 141 H 180 H 148 H (75-99) mg/dL 07/02/21 07/02/21 Range/Units 07:44 07:44 WBC 26.0 H (3.8-10.6) k/uL RBC 2.90 L (4.30-5.90) m/uL Hgb 10.2 L (13.0-17.5) gm/dL Hct 30.5 L (39.0-53.0) % MCV 105.2 H (80.0-100.0) fL MCH 35.1 H (25.0-35.0) pg RDW 18.1 H (11.5-15.5) % Plt Count 139 L (150-450) k/uL Neutrophils # 25.5 H (1.3-7.7) k/uL Lymphocytes # 0.2 L (1.0-4.8) k/uL Macrocytosis Marked A Sodium 130 L (137-145) mmol/L Chloride 92 L (98-107) mmol/L Carbon Dioxide 34 H (22-30) mmol/L BUN 39 H (9-20) mg/dL Glucose 131 H (74-99) mg/dL POC Glucose (mg/dL) (75-99) mg/dL Microbiology - Last 24 Hours (Table) 06/30/21 02:39 Blood Culture - Preliminary Blood No Growth after 48 hours 06/30/21 02:24 Blood Culture - Preliminary Blood No Growth after 48 hours 07/01/21 08:00 Gram Stain - Preliminary Sputum Sputum Culture - Preliminary Assessment and Plan Assessment: Acute COPD exacerbation, CTA reported negative for PE. 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 Aggressive pulmonary toileting, continue on nebulized bronchodilators, steroids, antibiotics. Cultures pending. Oncology discussing potential changing up treatment outpatient. Conservative recommendations as per orthopedic surgery, patient declining brace. The impression and plan of care has been dictated as directed. : I performed a history and examination of this patient, discussed the same with the dictator. I agree with the dictator's note ,documented as a scribe. Any additional findings or plans will be noted.
[2021-07-02 16:51] LABS: Glucose,Whole Blood 130 mg/dL (75-99)
[2021-07-02 20:16] LABS: Glucose,Whole Blood 144 mg/dL (75-99)
--- NOTE | 2021-07-02 20:59 | P.PN ---
Subjective Progress Note Date: 07/02/21 Principal diagnosis: COPD Exacerbation Up in chair, still SOB with exertion Objective - Vital Signs Vital signs: Vital Signs Temp 98 F 07/02/21 03:50 Pulse 82 07/02/21 08:43 Resp 14 07/02/21 03:50 BP 122/66 07/02/21 03:50 Pulse Ox 92 L 07/02/21 07:56 Intake & Output 07/01/21 07/02/21 07/02/21 18:59 06:59 18:59 Intake Total 1210 Output Total 200 530 Balance 1010 -530 Weight 84.5 kg Intake: Intake, IV Titration 250 Amount Azithromycin 500 mg In 250 Sodium Chloride 0.9% 250 ml @ 250 mls/hr IVPB Q24H [facility] Rx#:[id number] Oral 960 Output: Urine 200 530 Other: Voiding Method Bedside Commode Urinal # Voids 1 - Exam - Constitutional General appearance: cooperative, no acute distress - EENT Eyes: EOMI, PERRLA ENT: NA/AT, normal oropharynx - Neck Neck: normal ROM - Respiratory Respiratory: bilateral: diminished, rhonchi - Gastrointestinal General gastrointestinal: soft - Integumentary Integumentary: pale - Neurologic Neurologic: CNII-XII intact - Musculoskeletal Musculoskeletal: generalized weakness, strength equal bilaterally - Psychiatric Psychiatric: A&O x's 3, appropriate affect, intact judgment & insight - Labs CBC & Chem 7: 07/02/21 07:44 07/02/21 07:44 Labs: Abnormal Lab Results - Last 24 Hours (Table) 07/01/21 07/01/21 07/01/21 Range/Units 07:18 07:18 11:21 WBC 37.4 H (3.8-10.6) k/uL RBC 3.04 L (4.30-5.90) m/uL Hgb 10.6 L (13.0-17.5) gm/dL Hct 32.4 L (39.0-53.0) % MCV 106.6 H (80.0-100.0) fL MCH (25.0-35.0) pg RDW 17.9 H (11.5-15.5) % Plt Count (150-450) k/uL Neutrophils # 36.8 H (1.3-7.7) k/uL Lymphocytes # 0.2 L (1.0-4.8) k/uL Macrocytosis Marked A Sodium 134 L (137-145) mmol/L Chloride 92 L (98-107) mmol/L Carbon Dioxide 37 H (22-30) mmol/L BUN 33 H (9-20) mg/dL Glucose 137 H (74-99) mg/dL POC Glucose (mg/dL) 218 H (75-99) mg/dL 07/01/21 07/01/21 07/02/21 Range/Units 16:44 20:20 06:24 WBC (3.8-10.6) k/uL RBC (4.30-5.90) m/uL Hgb (13.0-17.5) gm/dL Hct (39.0-53.0) % MCV (80.0-100.0) fL MCH (25.0-35.0) pg RDW (11.5-15.5) % Plt Count (150-450) k/uL Neutrophils # (1.3-7.7) k/uL Lymphocytes # (1.0-4.8) k/uL Macrocytosis Sodium (137-145) mmol/L Chloride (98-107) mmol/L Carbon Dioxide (22-30) mmol/L BUN (9-20) mg/dL Glucose (74-99) mg/dL POC Glucose (mg/dL) 141 H 180 H 148 H (75-99) mg/dL 07/02/21 07/02/21 Range/Units 07:44 07:44 WBC 26.0 H (3.8-10.6) k/uL RBC 2.90 L (4.30-5.90) m/uL Hgb 10.2 L (13.0-17.5) gm/dL Hct 30.5 L (39.0-53.0) % MCV 105.2 H (80.0-100.0) fL MCH 35.1 H (25.0-35.0) pg RDW 18.1 H (11.5-15.5) % Plt Count 139 L (150-450) k/uL Neutrophils # (1.3-7.7) k/uL Lymphocytes # (1.0-4.8) k/uL Macrocytosis Marked A Sodium 130 L (137-145) mmol/L Chloride 92 L (98-107) mmol/L Carbon Dioxide 34 H (22-30) mmol/L BUN 39 H (9-20) mg/dL Glucose 131 H (74-99) mg/dL POC Glucose (mg/dL) (75-99) mg/dL Microbiology - Last 24 Hours (Table) 06/30/21 02:39 Blood Culture - Preliminary Blood No Growth after 48 hours 06/30/21 02:24 Blood Culture - Preliminary Blood No Growth after 48 hours 07/01/21 08:00 Gram Stain - Preliminary Sputum Sputum Culture - Preliminary Assessment and Plan Plan: Assessment and Plan (1) COPD exacerbation Current Visit: Yes Status: Acute Code(s): J44.1 - CHRONIC OBSTRUCTIVE PULMONARY DISEASE W (ACUTE) EXACERBATION SNOMED Code(s): 533361727 (2) Adenocarcinoma Current Visit: No Status: Chronic Priority: High Code(s): C80.1 - MALIGNANT (PRIMARY) NEOPLASM, UNSPECIFIED SNOMED Code(s): 596132584 Plan: Hold chemo and re-evaluate after hospitalization for possible treatment change Continue to monitor CBC and provide supportive care PRN Physician Attest: I have completed the full history and physical and agree with above dictation, dictated as a ascribe.
[2021-07-03 06:29] LABS: Glucose,Whole Blood 136 mg/dL (75-99)
[2021-07-03] MEDS: SODIUM CHLORIDE 0.9% 1,000 ML IV SCH (06:33)
[2021-07-03] MEDS: INSULIN ASPART (NovoLOG) 100 UNIT/ML VIAL SQ SCH ×4 (06:34→21:05)
[2021-07-03] MEDS: methylPREDNISolone SOD SUCCI 125 MG/2 ML VIAL IV SCH ×4 (06:34→23:23)
--- NOTE | 2021-07-03 06:57 | XR ---
EXAMINATION TYPE: XR chest 2V DATE OF EXAM: 07/03/2021 COMPARISON: 06/29/2021 TECHNIQUE: PA and lateral views submitted. HISTORY: Cough FINDINGS: Hyperinflation of the lungs with bilateral infiltrate and small effusion. Heart size normal. Atherosc lerotic change aorta. Diffuse osteopenia and arthropathy shoulders. Biapical pleural thickening. Unde rlying COPD suspected. Hypertrophic and degenerative changes of the spine. IMPRESSION: 1. COPD with bilateral infiltrate and small effusion stable
[2021-07-03] MEDS: IPRATROPIUM-ALBUTEROL 3 ML NEB INHALATION PRN ×3 (07:28→15:31)
[2021-07-03] MEDS: FORMOTEROL FUMARATE 20 MCG/2 ML NEBU INHALATION SCH ×2 (07:29→20:07)
[2021-07-03] MEDS: BUDESONIDE 0.5 MG/2 ML NEBU INHALATION SCH ×2 (07:30→20:07)
[2021-07-03 09:28] LABS: Anisocytosis Slight; Basophils % (A) 0 %; Eosinophils % (A) 0 %; HCT 32.8 % (39.0-53.0); HGB 10.8 gm/dL (13.0-17.5); Lymphocytes # (A) 0.1 k/uL (1.0-4.8); Lymphocytes % (A) 1 %; MCH 35.1 pg (25.0-35.0); MCHC 32.9 g/dL (31.0-37.0); Macrocytosis Marked; Mean Platelet Volume 8.1; Monocytes # (A) 0.3 k/uL (0-1.0); Monocytes % (A) 2 %; Neutrophils # (A) 15.1 k/uL (1.3-7.7); Neutrophils % (A) 97 %; Platelet Count 121 k/uL (150-450); RBC 3.08 m/uL (4.30-5.90); RDW 17.7 % (11.5-15.5); WBC 15.5 k/uL (3.8-10.6)
[2021-07-03] MEDS: POTASSIUM CHLORIDE ER 20 MEQ TAB.ER PO SCH (09:29)
[2021-07-03] MEDS: ENOXAPARIN 40 MG/0.4 ML SYRINGE SQ SCH (09:29)
[2021-07-03] MEDS: PANTOPRAZOLE 40 MG TABLET PO SCH ×2 (09:29→21:05)
[2021-07-03] MEDS: MULTIVITAMINS, THERA 1 EACH TAB PO SCH (09:29)
[2021-07-03] MEDS: FOLIC ACID 1 MG TAB PO SCH (09:29)
[2021-07-03] MEDS: LIDOCAINE 5% PATCH TOPICAL SCH (09:29)
[2021-07-03] MEDS: DULoxetine HCL 30 MG CAPSULE.DR PO SCH (09:29)
[2021-07-03] MEDS: clonazePAM 0.5 MG TAB PO SCH ×2 (09:29→21:05)
[2021-07-03] MEDS: CYANOCOBALAMIN 500 MCG TAB PO SCH (09:29)
[2021-07-03 09:48] LABS: MCV 106.7 fL (80.0-100.0)
[2021-07-03 09:51] LABS: African American GFR (CKD) >90 (>60 ml/min/1.73 sqM); Anion Gap 6 mmol/L; Blood Urea Nitrogen 39 mg/dL (9-20); Calcium 8.9 mg/dL (8.4-10.2); Carbon Dioxide 32 mmol/L (22-30); Chloride 91 mmol/L (98-107); Glucose 199 mg/dL (74-99); Non-African American GFR(CKD) 85 (>60 ml/min/1.73 sqM); Sodium 129 mmol/L (137-145)
--- NOTE | 2021-07-03 10:20 | P.PN ---
Subjective Progress Note Date: 07/03/21 This is a very pleasant 75-year-old gentleman who follows with Dr. Ortega is his primary care provider. He has a history of metastatic adenocarcinoma of the lungs. He also has a history of chronic obstructive pulmonary disease with an FEV1 value 34% of predicted. He follows with Dr. Nicole in our office for the same. He received chemotherapy this week and the next day he developed increasing shortness of breath cough and congestion and presented to the emergency room yesterday for the same. Chest x-ray revealed small chronic pleural effusion slightly increased compared to previous on 04/15/2021. CT angiogram ruled out pulmonary embolism. There is noted pulmonary emphysema. There is a stellate nodule in the right upper lobe not change compared to previous on 04/15/2021. White count 42.8. Hemoglobin 10.6. Sodium 132. Potassium 3.8. Creatinine 1.06. Malagon virus not detected. He is seen today in consultation on the selective care unit. He is currently sitting up in bed. He is on BiPAP 12/5 and 28% FiO2 and maintaining O2 saturations in the 90s. He is awake and alert. He is feeling a bit better today compared to yesterday. On 07/01/2021 patient seen in follow-up on selective care unit, he is still coughing, and wheezing, however she states that she is feeling better and breathing a little easier today, he is off BiPAP support, is currently on 3 L of oxygen his pulse ox of 97%, he is afebrile, hemodynamically he is stable, his had no acute events overnight. No new chest x-ray, his chest x-ray on admission showed small chronic pleural effusion, CTA chest showed no evidence of pulmonary embolism, there was pulmonary emphysema, and a small left pleural effusion was felt to be slightly increased to old exam. Today's labs have been reviewed, his white blood cell count is trending down and is down to 37.4 on today's labs, hemoglobin is stable at 10.6, sodium is 134, potassium is 3.9, chloride is 92, CO2 is 34, BUN is 33 creatinine 0.88. He was COVID 19 negative. He is currently on a combination of azithromycin and Rocephin, he is on nebulized bronchodilators, IV steroids in the form of Solu-Medrol 60 mg every 6 hours, he is on home dose chlorthalidone, 20 mg daily. Renal function is stable, has had no nausea vomiting or diarrhea. He is tolerating oral intake. On 07/02/2021 patient seen in follow-up on selective care unit, he is awake and alert, oriented 3, vital signs have been stable, he is currently on 3 L of oxygen pulse ox is 95%. He did wear BiPAP support last night for a few hours, was switched over to nasal cannula, overall he states he is breathing comfortably, and his breathing has improved since admission, no complaints of chest discomfort, no fever or chills. He does get short of breath with exertion. No new chest x-ray today. Patient currently remains on combination of antibiotics with azithromycin and Rocephin, he is on IV Solu-Medrol 60 mg every 6 hours and nebulized bronchodilators. Today's labs have been reviewed and his white blood cell count is improving and is down to 26 on today's labs, hemoglobin is 10.2. Serum sodium is down to 130, potassium is 4.2, chloride is 92, CO2 is 34, B1 is 39 creatinine 0.89. Pro-calcitonin level came back negative at 0.08. His blood and sputum cultures have been negative thus far. The patient is seen today 07/03/2021 in follow-up on the selective care unit. He is currently resting comfortably in bed. Awake and alert in no acute distress. Chest x-rays revealing evidence of COPD with bilateral infiltrates and small effusions which are stable compared to previous. He is maintaining O2 saturation in the 90s on 3 L/m per nasal cannula. Sputum culture revealing gram-negative bacilli. Blood cultures revealing no growth. White count 15.5. Hemoglobin 10.8. The count 121. Sodium 129. Potassium 4.0. Creatinine 0.88. He is currently on bronchodilators, IV Solu-Medrol. Antibiotics in the form of azithromycin. Objective - Vital Signs Vital signs: Vital Signs Temp 97.9 F 07/02/21 23:25 Pulse 94 07/03/21 07:33 Resp 16 07/03/21 04:15 BP 133/71 07/03/21 04:15 Pulse Ox 95 07/03/21 04:15 Intake & Output 07/02/21 07/03/21 07/03/21 18:59 06:59 18:59 Intake Total 720 240 Output Total 750 1100 Balance -30 -1100 240 Weight 87 kg Intake: Oral 720 240 Output: Urine 750 1100 Other: Voiding Method Bedside Commode Urinal - Exam GENERAL EXAM: Alert, very pleasant, 75-year-old male patient, on 3 L of oxygen, comfortable in no apparent distress. HEAD: Normocephalic/atraumatic. EYES: Normal reaction of pupils, equal size. Conjunctiva pink, sclera white. NOSE: Clear with pink turbinates. THROAT: No erythema or exudates. NECK: No masses, no JVD, no thyroid enlargement, no adenopathy. CHEST: No chest wall deformity. Symmetrical expansion. LUNGS: Equal air entry with diffuse rhonchi and wheezing CVS: Regular rate and rhythm, normal S1 and S2, no gallops, no murmurs, no rubs ABDOMEN: Soft, nontender. No hepatosplenomegaly, normal bowel sounds, no guarding or rigidity. EXTREMITIES: No clubbing, no edema, no cyanosis, 2+ pulses and upper and lower extremities. MUSCULOSKELETAL: Muscle strength and tone normal. SPINE: No scoliosis or deformity SKIN: No rashes CENTRAL NERVOUS SYSTEM: No focal deficits, tone is normal in all 4 extremities. PSYCHIATRIC: Alert and oriented -3. Appropriate affect. Intact judgment and insight. - Labs CBC & Chem 7: 07/03/21 08:13 07/03/21 08:13 Labs: Abnormal Lab Results - Last 24 Hours (Table) 07/02/21 07/02/21 07/02/21 Range/Units 11:36 16:46 20:15 WBC (3.8-10.6) k/uL RBC (4.30-5.90) m/uL Hgb (13.0-17.5) gm/dL Hct (39.0-53.0) % MCH (25.0-35.0) pg RDW (11.5-15.5) % Plt Count (150-450) k/uL Neutrophils # (1.3-7.7) k/uL Lymphocytes # (1.0-4.8) k/uL Macrocytosis Sodium (137-145) mmol/L Chloride (98-107) mmol/L Carbon Dioxide (22-30) mmol/L BUN (9-20) mg/dL Glucose (74-99) mg/dL POC Glucose (mg/dL) 132 H 130 H 144 H (75-99) mg/dL 07/03/21 07/03/21 07/03/21 Range/Units 06:28 08:13 08:13 WBC 15.5 H (3.8-10.6) k/uL RBC 3.08 L (4.30-5.90) m/uL Hgb 10.8 L (13.0-17.5) gm/dL Hct 32.8 L (39.0-53.0) % MCH 35.1 H (25.0-35.0) pg RDW 17.7 H (11.5-15.5) % Plt Count 121 L (150-450) k/uL Neutrophils # 15.1 H (1.3-7.7) k/uL Lymphocytes # 0.1 L (1.0-4.8) k/uL Macrocytosis Marked A Sodium 129 L (137-145) mmol/L Chloride 91 L (98-107) mmol/L Carbon Dioxide 32 H (22-30) mmol/L BUN 39 H (9-20) mg/dL Glucose 199 H (74-99) mg/dL POC Glucose (mg/dL) 136 H (75-99) mg/dL Microbiology - Last 24 Hours (Table) 06/30/21 02:24 Blood Culture - Preliminary Blood No Growth after 72 hours 06/30/21 02:39 Blood Culture - Preliminary Blood No Growth after 72 hours 07/01/21 08:00 Gram Stain - Preliminary Sputum Sputum Culture - Preliminary Gram Neg Bacilli Assessment and Plan Assessment: 1 Acute hypoxemic respiratory failure secondary to an acute exacerbation of COPD with FEV1 value 34% of predicted, as well as gram-negative bacilli positive sputum 2 Metastatic adenocarcinoma of the lungs, received chemotherapy on 06/28/2021 3 Right upper lobe spiculated lesion measuring 1 cm, stable compared to previous 4 Metastatic adenocarcinoma along with a 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 8 Obstructive sleep apnea, mild, not on CPAP therapy Plan: The patient was seen and evaluated by Dr. Plaza Sputum culture positive for gram-negative bacilli Discontinue azithromycin. Add Zosyn. Continue IV Solu-Medrol, DuoNeb inhalations, Pulmicort and Perforomist inhalations Alternate BiPAP with nasal cannula Titrate down the FiO2 as tolerated We will continue to follow and make further recommendations based on his clinical status I, the cosigning physician, performed a history & physical examination of the patient. Lungs sounds with bilateral end expiratory wheeze, diminished. Maintaining good O2 saturations in the 90s on 3 L nasal cannula alternating with BiPAP. I discussed the assessment and plan of care with my nurse practitioner, Linh Way. I attest to the above note as dictated by her.
[2021-07-03 11:46] LABS: Glucose,Whole Blood 152 mg/dL (75-99)
--- NOTE | 2021-07-03 12:00 | P.PN ---
Subjective Progress Note Date: 07/03/21 This is a 75-year-old gentleman admitted with acute exacerbation of COPD, acute hypoxic respiratory failure, history of metastatic adenocarcinoma of the lungs with last chemotherapy 06/28/2021, T6 ,L1 compression fractures and multiple other medical issues. Evaluated by orthopedic surgery, conservative treatment recommended with bracing. Patient declining brace. Occasional productive cough with yellow sputum, sputum culture pending. Maintained on Zithromax, Rocephin, IV steroids, nebulized bronchodilators. WBC trending down, afebrile. Preliminary blood cultures no growth at 48 hours. Pro-calcitonin level negative.On and off BiPAP throughout the night .Maintaining O2 sats in the 90s on 3 L nasal cannula. Complains of exertional shortness of breath, states at baseline. Denies nausea ,vomiting or diarrhea. Evaluated by oncology, recommending holding chemo and reevaluating her possible treatment change outpatient. Sodium 1:30. Renal function stable. 07/03/2021 maintaining O2 sats in the 90s on 3 L nasal cannula. Used BiPAP during the night. Chest x-ray reporting COPD with bilateral infiltrate and small effusion stable. Sputum culture reporting gram-negative bacilli. antibiotics adjusted to Zosyn. Afebrile, WBC trending down to 15.5. Blood cultures reporting no growth at 72 hrs. Maintained on nebulized bronchodilators, IV steroids. Sodium 129. BUN 39, creatinine 0.88. Good diet intake with blood sugars controlled. Objective - Vital Signs Vital signs: Vital Signs Temp 97.3 F L 07/03/21 08:00 Pulse 94 07/03/21 11:26 Resp 16 07/03/21 08:00 BP 126/69 07/03/21 08:00 Pulse Ox 94 L 07/03/21 08:00 Intake & Output 07/02/21 07/03/21 07/03/21 18:59 06:59 18:59 Intake Total 720 260 Output Total 750 1100 500 Balance -30 -1100 -240 Weight 87 kg Intake: Intake, IV Titration 20 Amount Sodium Chloride 0.9% 1, 20 000 ml @ 20 mls/hr IV . Q24H [facility] Rx#:[id number] Oral 720 240 Output: Urine 750 1100 500 Other: Voiding Method Bedside Commode Urinal - Exam - Exam GENERAL: Alert and oriented 3, Sitting up in bed, no acute distress, bipap at bedside not currently in use NECK: Supple, No JVD. CARDIOVASCULAR: S1, S2 regular.No murmur, rub or gallop RESPIRATION: Breath sounds diminished in the bases. Scattered diffuse rhonchi with expiratory wheezing. ABDOMEN: Soft, nontender . No guarding. no masses palpable.Bowel sounds heard. LEGS: no edema ( legs elevated, up on bed). no calf tenderness. Jobst hose in place NERVOUS SYSTEM: Cranial N 2-12 grossly normal. No focal deficits. Strength and sensation grossly intact. Skin: Warm and dry, no rash - Labs CBC & Chem 7: 07/03/21 08:13 07/03/21 08:13 Labs: Abnormal Lab Results - Last 24 Hours (Table) 07/02/21 07/02/21 07/03/21 Range/Units 16:46 20:15 06:28 WBC (3.8-10.6) k/uL RBC (4.30-5.90) m/uL Hgb (13.0-17.5) gm/dL Hct (39.0-53.0) % MCH (25.0-35.0) pg RDW (11.5-15.5) % Plt Count (150-450) k/uL Neutrophils # (1.3-7.7) k/uL Lymphocytes # (1.0-4.8) k/uL Macrocytosis Sodium (137-145) mmol/L Chloride (98-107) mmol/L Carbon Dioxide (22-30) mmol/L BUN (9-20) mg/dL Glucose (74-99) mg/dL POC Glucose (mg/dL) 130 H 144 H 136 H (75-99) mg/dL 07/03/21 07/03/21 Range/Units 08:13 08:13 WBC 15.5 H (3.8-10.6) k/uL RBC 3.08 L (4.30-5.90) m/uL Hgb 10.8 L (13.0-17.5) gm/dL Hct 32.8 L (39.0-53.0) % MCH 35.1 H (25.0-35.0) pg RDW 17.7 H (11.5-15.5) % Plt Count 121 L (150-450) k/uL Neutrophils # 15.1 H (1.3-7.7) k/uL Lymphocytes # 0.1 L (1.0-4.8) k/uL Macrocytosis Marked A Sodium 129 L (137-145) mmol/L Chloride 91 L (98-107) mmol/L Carbon Dioxide 32 H (22-30) mmol/L BUN 39 H (9-20) mg/dL Glucose 199 H (74-99) mg/dL POC Glucose (mg/dL) (75-99) mg/dL Microbiology - Last 24 Hours (Table) 06/30/21 02:24 Blood Culture - Preliminary Blood No Growth after 72 hours 06/30/21 02:39 Blood Culture - Preliminary Blood No Growth after 72 hours 07/01/21 08:00 Gram Stain - Preliminary Sputum Sputum Culture - Preliminary Gram Neg Bacilli Assessment and Plan Assessment: Acute COPD exacerbation, sputum culture reporting gram-negative bacilli Acute on chronic hypoxic respiratory failure secondary to the above, there is 2 L nasal cannula at home Compression fracture of T6 , acute Compression fracture of L1, chronic Hyponatremia, possibly med induced, chlorthalidone discontinued History of metastatic adenocarcinoma of the lungs, last chemotherapy treatment 06/28/2021 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 Maintain nebulized bronchodilators, steroids, antibiotics, aggressive pulmonary toileting. Sputum culture finalizing. Weaning of O2 in progress. The impression and plan of care has been dictated as directed. : I performed a history and examination of this patient, discussed the same with the dictator. I agree with the dictator's note ,documented as a scribe. Any additional findings or plans will be noted.
[2021-07-03] MEDS: PIPERACILLIN-TAZOBACTAM 3.375 GM in SODIUM CHLORIDE 0.9% 100 ML IVPB SCH ×3 (13:26→23:23)
--- NOTE | 2021-07-03 13:57 | P.PN ---
Subjective Progress Note Date: 07/03/21 Principal diagnosis: COPD Exacerbation Slow improvements daily, CBC stable Objective - Vital Signs Vital signs: Vital Signs Temp 97.3 F L 07/03/21 08:00 Pulse 94 07/03/21 11:26 Resp 16 07/03/21 08:00 BP 126/69 07/03/21 08:00 Pulse Ox 94 L 07/03/21 08:00 Intake & Output 07/02/21 07/03/21 07/03/21 18:59 06:59 18:59 Intake Total 720 260 Output Total 750 1100 800 Balance -30 -1100 -540 Weight 87 kg Intake: Intake, IV Titration 20 Amount Sodium Chloride 0.9% 1, 20 000 ml @ 20 mls/hr IV . Q24H [facility] Rx#:[id number] Oral 720 240 Output: Urine 750 1100 800 Other: Voiding Method Bedside Commode Urinal - Exam - Constitutional General appearance: cooperative, no acute distress - EENT Eyes: EOMI, PERRLA ENT: NA/AT, normal oropharynx - Neck Neck: normal ROM - Respiratory Respiratory: bilateral: diminished, rhonchi - Gastrointestinal General gastrointestinal: soft - Integumentary Integumentary: pale - Neurologic Neurologic: CNII-XII intact - Musculoskeletal Musculoskeletal: generalized weakness, strength equal bilaterally - Psychiatric Psychiatric: A&O x's 3, appropriate affect, intact judgment & insight - Labs CBC & Chem 7: 07/03/21 08:13 07/03/21 08:13 Labs: Abnormal Lab Results - Last 24 Hours (Table) 07/02/21 07/02/21 07/03/21 Range/Units 16:46 20:15 06:28 WBC (3.8-10.6) k/uL RBC (4.30-5.90) m/uL Hgb (13.0-17.5) gm/dL Hct (39.0-53.0) % MCH (25.0-35.0) pg RDW (11.5-15.5) % Plt Count (150-450) k/uL Neutrophils # (1.3-7.7) k/uL Lymphocytes # (1.0-4.8) k/uL Macrocytosis Sodium (137-145) mmol/L Chloride (98-107) mmol/L Carbon Dioxide (22-30) mmol/L BUN (9-20) mg/dL Glucose (74-99) mg/dL POC Glucose (mg/dL) 130 H 144 H 136 H (75-99) mg/dL 07/03/21 07/03/21 07/03/21 Range/Units 08:13 08:13 11:44 WBC 15.5 H (3.8-10.6) k/uL RBC 3.08 L (4.30-5.90) m/uL Hgb 10.8 L (13.0-17.5) gm/dL Hct 32.8 L (39.0-53.0) % MCH 35.1 H (25.0-35.0) pg RDW 17.7 H (11.5-15.5) % Plt Count 121 L (150-450) k/uL Neutrophils # 15.1 H (1.3-7.7) k/uL Lymphocytes # 0.1 L (1.0-4.8) k/uL Macrocytosis Marked A Sodium 129 L (137-145) mmol/L Chloride 91 L (98-107) mmol/L Carbon Dioxide 32 H (22-30) mmol/L BUN 39 H (9-20) mg/dL Glucose 199 H (74-99) mg/dL POC Glucose (mg/dL) 152 H (75-99) mg/dL Microbiology - Last 24 Hours (Table) 07/01/21 08:00 Gram Stain - Final Sputum Sputum Culture - Final Stenotrophomonas maltophilia 06/30/21 02:24 Blood Culture - Preliminary Blood No Growth after 72 hours 06/30/21 02:39 Blood Culture - Preliminary Blood No Growth after 72 hours Assessment and Plan Plan: Assessment and Plan (1) COPD exacerbation Current Visit: Yes Status: Acute Code(s): J44.1 - CHRONIC OBSTRUCTIVE PULMONARY DISEASE W (ACUTE) EXACERBATION SNOMED Code(s): 292130287 (2) Adenocarcinoma Current Visit: No Status: Chronic Priority: High Code(s): C80.1 - MALIGNANT (PRIMARY) NEOPLASM, UNSPECIFIED SNOMED Code(s): 832642886 Plan: Hold chemo and re-evaluate after hospitalization for possible treatment change Continue to monitor CBC and provide supportive care PRN All other acute problems per primary and pulmonology CBC daily - Transfusions if needed
[2021-07-03 16:41] LABS: Glucose,Whole Blood 158 mg/dL (75-99)
[2021-07-03 20:24] LABS: Glucose,Whole Blood 193 mg/dL (75-99)
[2021-07-04 06:15] LABS: Glucose,Whole Blood 145 mg/dL (75-99)
[2021-07-04] MEDS: SODIUM CHLORIDE 0.9% 1,000 ML IV SCH (06:31)
[2021-07-04] MEDS: methylPREDNISolone SOD SUCCI 125 MG/2 ML VIAL IV SCH (06:31)
[2021-07-04] MEDS: INSULIN ASPART (NovoLOG) 100 UNIT/ML VIAL SQ SCH ×4 (06:32→20:38)
[2021-07-04 08:42] LABS: Calcium 8.6 mg/dL (8.4-10.2); Potassium 4.2 mmol/L (3.5-5.1)
[2021-07-04 08:52] LABS: Anisocytosis Slight; Basophils % (A) 0 %; Eosinophils % (A) 0 %; HCT 30.8 % (39.0-53.0); HGB 10.3 gm/dL (13.0-17.5); Lymphocytes # (A) 0.3 k/uL (1.0-4.8); Lymphocytes % (A) 4 %; MCH 35.2 pg (25.0-35.0); MCHC 33.4 g/dL (31.0-37.0); MCV 105.4 fL (80.0-100.0); Macrocytosis Marked; Mean Platelet Volume 8.3; Monocytes # (A) 0.1 k/uL (0-1.0); Monocytes % (A) 1 %; Neutrophils % (A) 94 %; RBC 2.93 m/uL (4.30-5.90); RDW 18.8 % (11.5-15.5); WBC 6.4 k/uL (3.8-10.6)
[2021-07-04] MEDS: LIDOCAINE 5% PATCH TOPICAL SCH (09:00)
[2021-07-04] MEDS: FORMOTEROL FUMARATE 20 MCG/2 ML NEBU INHALATION SCH ×2 (09:14→20:25)
[2021-07-04] MEDS: BUDESONIDE 0.5 MG/2 ML NEBU INHALATION SCH ×2 (09:14→20:25)
[2021-07-04] MEDS: IPRATROPIUM-ALBUTEROL 3 ML NEB INHALATION PRN ×3 (09:14→15:23)
[2021-07-04] MEDS: PIPERACILLIN-TAZOBACTAM 3.375 GM in SODIUM CHLORIDE 0.9% 100 ML IVPB SCH (09:34)
[2021-07-04] MEDS: clonazePAM 0.5 MG TAB PO SCH ×2 (09:35→20:38)
[2021-07-04] MEDS: PANTOPRAZOLE 40 MG TABLET PO SCH ×2 (09:35→20:38)
[2021-07-04] MEDS: POTASSIUM CHLORIDE ER 20 MEQ TAB.ER PO SCH ×2 (09:35→09:36)
[2021-07-04] MEDS: CYANOCOBALAMIN 500 MCG TAB PO SCH ×2 (09:35→09:36)
[2021-07-04] MEDS: FOLIC ACID 1 MG TAB PO SCH (09:36)
[2021-07-04] MEDS: ENOXAPARIN 40 MG/0.4 ML SYRINGE SQ SCH (09:36)
[2021-07-04] MEDS: MULTIVITAMINS, THERA 1 EACH TAB PO SCH (09:36)
[2021-07-04] MEDS: DULoxetine HCL 30 MG CAPSULE.DR PO SCH (09:36)
[2021-07-04] MEDS ORDERED: LEVOFLOXACIN 500MG-D5W PMX 500 MG in DEXTROSE/WATER 1 100ML.BAG IVPB SCH (11:15)
[2021-07-04] MEDS: LEVOFLOXACIN 750 MG TAB PO SCH (11:34)
[2021-07-04 11:51] LABS: Glucose,Whole Blood 167 mg/dL (75-99)
[2021-07-04 12:26] VITALS: RESP 18
--- NOTE | 2021-07-04 13:59 | P.PN ---
Subjective Progress Note Date: 07/04/21 This is a very pleasant 75-year-old gentleman who follows with Dr. Ortega is his primary care provider. He has a history of metastatic adenocarcinoma of the lungs. He also has a history of chronic obstructive pulmonary disease with an FEV1 value 34% of predicted. He follows with Dr. Nicole in our office for the same. He received chemotherapy this week and the next day he developed increasing shortness of breath cough and congestion and presented to the emergency room yesterday for the same. Chest x-ray revealed small chronic pleural effusion slightly increased compared to previous on 04/15/2021. CT angiogram ruled out pulmonary embolism. There is noted pulmonary emphysema. There is a stellate nodule in the right upper lobe not change compared to previous on 04/15/2021. White count 42.8. Hemoglobin 10.6. Sodium 132. Potassium 3.8. Creatinine 1.06. Malagon virus not detected. He is seen today in consultation on the selective care unit. He is currently sitting up in bed. He is on BiPAP 12/5 and 28% FiO2 and maintaining O2 saturations in the 90s. He is awake and alert. He is feeling a bit better today compared to yesterday. On 07/01/2021 patient seen in follow-up on selective care unit, he is still coughing, and wheezing, however she states that she is feeling better and breathing a little easier today, he is off BiPAP support, is currently on 3 L of oxygen his pulse ox of 97%, he is afebrile, hemodynamically he is stable, his had no acute events overnight. No new chest x-ray, his chest x-ray on admission showed small chronic pleural effusion, CTA chest showed no evidence of pulmonary embolism, there was pulmonary emphysema, and a small left pleural effusion was felt to be slightly increased to old exam. Today's labs have been reviewed, his white blood cell count is trending down and is down to 37.4 on today's labs, hemoglobin is stable at 10.6, sodium is 134, potassium is 3.9, chloride is 92, CO2 is 34, BUN is 33 creatinine 0.88. He was COVID 19 negative. He is currently on a combination of azithromycin and Rocephin, he is on nebulized bronchodilators, IV steroids in the form of Solu-Medrol 60 mg every 6 hours, he is on home dose chlorthalidone, 20 mg daily. Renal function is stable, has had no nausea vomiting or diarrhea. He is tolerating oral intake. On 07/02/2021 patient seen in follow-up on selective care unit, he is awake and alert, oriented 3, vital signs have been stable, he is currently on 3 L of oxygen pulse ox is 95%. He did wear BiPAP support last night for a few hours, was switched over to nasal cannula, overall he states he is breathing comfortably, and his breathing has improved since admission, no complaints of chest discomfort, no fever or chills. He does get short of breath with exertion. No new chest x-ray today. Patient currently remains on combination of antibiotics with azithromycin and Rocephin, he is on IV Solu-Medrol 60 mg every 6 hours and nebulized bronchodilators. Today's labs have been reviewed and his white blood cell count is improving and is down to 26 on today's labs, hemoglobin is 10.2. Serum sodium is down to 130, potassium is 4.2, chloride is 92, CO2 is 34, B1 is 39 creatinine 0.89. Pro-calcitonin level came back negative at 0.08. His blood and sputum cultures have been negative thus far. The patient is seen today 07/03/2021 in follow-up on the selective care unit. He is currently resting comfortably in bed. Awake and alert in no acute distress. Chest x-rays revealing evidence of COPD with bilateral infiltrates and small effusions which are stable compared to previous. He is maintaining O2 saturation in the 90s on 3 L/m per nasal cannula. Sputum culture revealing gram-negative bacilli. Blood cultures revealing no growth. White count 15.5. Hemoglobin 10.8. White count 121. Sodium 129. Potassium 4.0. Creatinine 0.88. He is currently on bronchodilators, IV Solu-Medrol. Antibiotics in the form of azithromycin. The patient is seen today 07/04/2021 in follow-up on the selective care unit. He is currently sitting up at the bedside. Awake and alert in no acute distress. No worsening shortness of breath, cough or congestion. Sputum was positive for stenotrophomonas maltophilia. Currently on IV Zosyn. Remains on IV Solu-Medrol and bronchodilators. He is utilizing the incentive spirometer and flutter valve. White count 6.4. Hemoglobin 10.3. Sodium 1:30. Potassium 4.2. Creatinine 0.98. Objective - Vital Signs Vital signs: Vital Signs Temp 97.7 F 07/04/21 12:00 Pulse 86 07/04/21 12:31 Resp 18 07/04/21 12:00 BP 136/68 07/04/21 12:00 Pulse Ox 96 07/04/21 12:00 Intake & Output 07/03/21 07/04/21 07/04/21 18:59 06:59 18:59 Intake Total 980 240 Output Total 1100 1595 Balance -120 -1595 240 Weight 79.2 kg Intake: Intake, IV Titration 20 Amount Sodium Chloride 0.9% 1, 20 000 ml @ 20 mls/hr IV . Q24H [facility] Rx#:[id number] Oral 960 240 Output: Urine 1100 1595 Other: Voiding Method Bedside Commode Bedside Commode Urinal Urinal - Exam GENERAL EXAM: Alert, very pleasant, 75-year-old male patient, on 3 L of oxygen, comfortable in no apparent distress. HEAD: Normocephalic/atraumatic. EYES: Normal reaction of pupils, equal size. Conjunctiva pink, sclera white. NOSE: Clear with pink turbinates. THROAT: No erythema or exudates. NECK: No masses, no JVD, no thyroid enlargement, no adenopathy. CHEST: No chest wall deformity. Symmetrical expansion. LUNGS: Equal air entry with diffuse rhonchi and wheezing CVS: Regular rate and rhythm, normal S1 and S2, no gallops, no murmurs, no rubs ABDOMEN: Soft, nontender. No hepatosplenomegaly, normal bowel sounds, no guarding or rigidity. EXTREMITIES: No clubbing, no edema, no cyanosis, 2+ pulses and upper and lower extremities. MUSCULOSKELETAL: Muscle strength and tone normal. SPINE: No scoliosis or deformity SKIN: No rashes CENTRAL NERVOUS SYSTEM: No focal deficits, tone is normal in all 4 extremities. PSYCHIATRIC: Alert and oriented -3. Appropriate affect. Intact judgment and insight. - Labs CBC & Chem 7: 07/04/21 07:37 07/04/21 07:37 Labs: Abnormal Lab Results - Last 24 Hours (Table) 07/03/21 07/03/21 07/03/21 Range/Units 08:13 16:39 20:22 RBC (4.30-5.90) m/uL Hgb (13.0-17.5) gm/dL Hct (39.0-53.0) % MCV 106.7 H (80.0-100.0) fL MCH (25.0-35.0) pg RDW (11.5-15.5) % Macrocytosis Sodium (137-145) mmol/L Chloride (98-107) mmol/L Carbon Dioxide (22-30) mmol/L BUN (9-20) mg/dL Glucose (74-99) mg/dL POC Glucose (mg/dL) 158 H 193 H (75-99) mg/dL 07/04/21 07/04/21 07/04/21 Range/Units 06:14 07:37 07:37 RBC 2.93 L (4.30-5.90) m/uL Hgb 10.3 L (13.0-17.5) gm/dL Hct 30.8 L (39.0-53.0) % MCV 105.4 H (80.0-100.0) fL MCH 35.2 H (25.0-35.0) pg RDW 18.8 H (11.5-15.5) % Macrocytosis Marked A Sodium 130 L (137-145) mmol/L Chloride 93 L (98-107) mmol/L Carbon Dioxide 35 H (22-30) mmol/L BUN 37 H (9-20) mg/dL Glucose 116 H (74-99) mg/dL POC Glucose (mg/dL) 145 H (75-99) mg/dL 07/04/21 Range/Units 11:49 RBC (4.30-5.90) m/uL Hgb (13.0-17.5) gm/dL Hct (39.0-53.0) % MCV (80.0-100.0) fL MCH (25.0-35.0) pg RDW (11.5-15.5) % Macrocytosis Sodium (137-145) mmol/L Chloride (98-107) mmol/L Carbon Dioxide (22-30) mmol/L BUN (9-20) mg/dL Glucose (74-99) mg/dL POC Glucose (mg/dL) 167 H (75-99) mg/dL Microbiology - Last 24 Hours (Table) 06/30/21 02:39 Blood Culture - Preliminary Blood No Growth after 96 hours 06/30/21 02:24 Blood Culture - Preliminary Blood No Growth after 96 hours 07/01/21 08:00 Gram Stain - Final Sputum Sputum Culture - Final Stenotrophomonas maltophilia Assessment and Plan Assessment: 1 Acute hypoxemic respiratory failure secondary to an acute exacerbation of COPD with FEV1 value 34% of predicted, as well as stenotrophomonas maltophilia 2 Metastatic adenocarcinoma of the lungs, received chemotherapy on 06/28/2021 3 Right upper lobe spiculated lesion measuring 1 cm, stable compared to previous 4 Metastatic adenocarcinoma along with a 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 8 Obstructive sleep apnea, mild, not on CPAP therapy Plan: The patient was seen and evaluated by Dr. Plaza Sputum culture positive for Stenotrophomonas maltophilia Discontinue Zosyn. Add Levaquin. Stopped IV Solu-Medrol, initiate prednisone burst and taper Continue DuoNeb inhalations, Pulmicort and Perforomist inhalations Continue incentive spirometer and flutter valve Titrate down the FiO2 as tolerated We will continue to follow I, the cosigning physician, performed a history & physical examination of the patient. Lungs sounds with bilateral end expiratory wheeze, diminished. Maintaining good O2 saturations in the 90s on 3 L nasal cannula. I discussed the assessment and plan of care with my nurse practitioner, Linh Way. I attest to the above note as dictated by her.
--- NOTE | 2021-07-04 14:07 | P.PN ---
Subjective Progress Note Date: 07/04/21 Principal diagnosis: COPD Exacerbation Discussed with primary team, plan for discharge today. Will set up appointment for next week for clearance to restart chemotherapy. Objective - Vital Signs Vital signs: Vital Signs Temp 97.7 F 07/04/21 12:00 Pulse 86 07/04/21 12:31 Resp 18 07/04/21 12:00 BP 136/68 07/04/21 12:00 Pulse Ox 96 07/04/21 12:00 Intake & Output 07/03/21 07/04/21 07/04/21 18:59 06:59 18:59 Intake Total 980 240 Output Total 1100 1595 Balance -120 -1595 240 Weight 79.2 kg Intake: Intake, IV Titration 20 Amount Sodium Chloride 0.9% 1, 20 000 ml @ 20 mls/hr IV . Q24H [facility] Rx#:[id number] Oral 960 240 Output: Urine 1100 1595 Other: Voiding Method Bedside Commode Bedside Commode Urinal Urinal - Exam - Constitutional General appearance: cooperative, no acute distress - EENT Eyes: EOMI, PERRLA ENT: NA/AT, normal oropharynx - Neck Neck: normal ROM - Respiratory Respiratory: bilateral: diminished, rhonchi - Gastrointestinal General gastrointestinal: soft - Integumentary Integumentary: pale - Neurologic Neurologic: CNII-XII intact - Musculoskeletal Musculoskeletal: generalized weakness, strength equal bilaterally - Psychiatric Psychiatric: A&O x's 3, appropriate affect, intact judgment & insight - Labs CBC & Chem 7: 07/04/21 07:37 07/04/21 07:37 Labs: Abnormal Lab Results - Last 24 Hours (Table) 07/03/21 07/03/21 07/03/21 Range/Units 08:13 16:39 20:22 RBC (4.30-5.90) m/uL Hgb (13.0-17.5) gm/dL Hct (39.0-53.0) % MCV 106.7 H (80.0-100.0) fL MCH (25.0-35.0) pg RDW (11.5-15.5) % Macrocytosis Sodium (137-145) mmol/L Chloride (98-107) mmol/L Carbon Dioxide (22-30) mmol/L BUN (9-20) mg/dL Glucose (74-99) mg/dL POC Glucose (mg/dL) 158 H 193 H (75-99) mg/dL 07/04/21 07/04/21 07/04/21 Range/Units 06:14 07:37 07:37 RBC 2.93 L (4.30-5.90) m/uL Hgb 10.3 L (13.0-17.5) gm/dL Hct 30.8 L (39.0-53.0) % MCV 105.4 H (80.0-100.0) fL MCH 35.2 H (25.0-35.0) pg RDW 18.8 H (11.5-15.5) % Macrocytosis Marked A Sodium 130 L (137-145) mmol/L Chloride 93 L (98-107) mmol/L Carbon Dioxide 35 H (22-30) mmol/L BUN 37 H (9-20) mg/dL Glucose 116 H (74-99) mg/dL POC Glucose (mg/dL) 145 H (75-99) mg/dL 07/04/21 Range/Units 11:49 RBC (4.30-5.90) m/uL Hgb (13.0-17.5) gm/dL Hct (39.0-53.0) % MCV (80.0-100.0) fL MCH (25.0-35.0) pg RDW (11.5-15.5) % Macrocytosis Sodium (137-145) mmol/L Chloride (98-107) mmol/L Carbon Dioxide (22-30) mmol/L BUN (9-20) mg/dL Glucose (74-99) mg/dL POC Glucose (mg/dL) 167 H (75-99) mg/dL Microbiology - Last 24 Hours (Table) 06/30/21 02:39 Blood Culture - Preliminary Blood No Growth after 96 hours 06/30/21 02:24 Blood Culture - Preliminary Blood No Growth after 96 hours 07/01/21 08:00 Gram Stain - Final Sputum Sputum Culture - Final Stenotrophomonas maltophilia Assessment and Plan Plan: Assessment and Plan (1) COPD exacerbation Pneumonia - On Antibiotics Current Visit: Yes Status: Acute Code(s): J44.1 - CHRONIC OBSTRUCTIVE PULMONARY DISEASE W (ACUTE) EXACERBATION SNOMED Code(s): 620889668 (2) Adenocarcinoma Current Visit: No Status: Chronic Priority: High Code(s): C80.1 - MALIGNANT (PRIMARY) NEOPLASM, UNSPECIFIED SNOMED Code(s): 623104896 Plan: Hold chemo and re-evaluate after hospitalization for possible treatment change Continue to monitor CBC and provide supportive care PRN All other acute problems per primary and pulmonology He will be scheduled for follow-up next week with DR or COTTAGE ATTENDANT to clear for next chemotherapy given pneumonia and copd exacerbation
[2021-07-04 14:45] LABS: Platelet Count 96 k/uL (150-450)
--- NOTE | 2021-07-04 16:08 | P.DS ---
Providers Date of admission: 06/30/21 02:49 Expected date of discharge: 07/05/21 Attending physician: Kaveh Garcia Consults: 06/30/21 02:47 Consult Physician Routine Consulting Provider: Brynn Nicole Consult Reason/Comments: Your patient. Pleural effusion. COPD Do you want consulting provider notified?: Yes Consult Physician Routine Consulting Provider: Rex Trejo Consult Reason/Comments: your patient Do you want consulting provider notified?: Yes 06/30/21 11:14 Consult Physician Routine Consulting Provider: Rebeca Luna Consult Reason/Comments: T6 compression fracture Do you want consulting provider notified?: Yes Primary care physician: [facility] Course: Final Diagnoses: Acute COPD exacerbation, sputum culture reporting gram-negative bacilli Acute on chronic hypoxic respiratory failure secondary to the above, there is 2 L nasal cannula at home Compression fracture of T6 , acute Compression fracture of L1, chronic Hyponatremia, possibly med induced, chlorthalidone discontinued History of metastatic adenocarcinoma of the lungs, last chemotherapy treatment 06/28/2021 History of 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 Evaluated by orthopedic surgery, conservative treatment recommended with bracing. Patient declining brace. Occasional productive cough with yellow sputum, sputum culture pending. Maintained on Zithromax, Rocephin, IV steroids, nebulized bronchodilators. WBC trending down, afebrile. Preliminary blood cultures no growth at 48 hours. Pro-calcitonin level negative.On and off BiPAP throughout the night .Maintaining O2 sats in the 90s on 3 L nasal cannula. Complains of exertional shortness of breath, states at baseline. Denies nausea ,vomiting or diarrhea. Evaluated by oncology, recommending holding chemo and reevaluating her possible treatment change outpatient. Sodium 1:30. Renal function stable. 07/03/2021 maintaining O2 sats in the 90s on 3 L nasal cannula. Used BiPAP during the night. Chest x-ray reporting COPD with bilateral infiltrate and small effusion stable. Sputum culture reporting gram-negative bacilli. antibiotics adjusted to Zosyn. Afebrile, WBC trending down to 15.5. Blood cultures reporting no growth at 72 hrs. Maintained on nebulized bronchodilators, IV steroids. Sodium 129. BUN 39, creatinine 0.88. Good diet intake with blood sugars controlled. Sputum Culture reporting Stenotrophomonas maltophilia. Antibiotics recently adjusted-discontinued Zosyn, Levaquin initiated. Significant clinical improvement. Cleared by pulmonary for discharge. Patient will be discharged home in the morning, in a stable condition with guarded prognosis. - Exam GENERAL: Alert and oriented 3, Sitting up in bed, no acute distress, tired appearing NECK: Supple, No JVD. CARDIOVASCULAR: S1, S2 regular.No murmur, rub or gallop RESPIRATION: Breath sounds diminished in the bases. Scattered diffuse rhonchi with expiratory wheezing. ABDOMEN: Soft, nontender . No guarding. no masses palpable.Bowel sounds heard. LEGS: no edema ( legs elevated, up on bed). no calf tenderness. NERVOUS SYSTEM: Cranial N 2-12 grossly normal. No focal deficits. Strength and sensation grossly intact. Skin: Warm and dry, no rash Microbiology 06/30/21 02:39 Blood Blood Culture - Preliminary No Growth after 96 hours 06/30/21 02:24 Blood Blood Culture - Preliminary No Growth after 96 hours 07/01/21 08:00 Sputum Gram Stain - Final 07/01/21 08:00 Sputum Sputum Culture - Final Stenotrophomonas maltophilia The impression and plan of care has been dictated as directed. : I performed a history and examination of this patient, discussed the same with the dictator. I agree with the dictator's note ,documented as a scribe. Any additional findings or plans will be noted. Patient Condition at Discharge: Stable Plan - Discharge Summary Discharge Rx Participant: No New Discharge Prescriptions: New predniSONE 10 mg PO DIRECTED #30 tab Acetaminophen Tab [Tylenol] 650 mg PO Q6HR PRN tab PRN Reason: Mild Pain Or Fever > 100.5 Levofloxacin [Levaquin] 500 mg PO DAILY 1 Days #7 tab Continue Umeclidinium Brm/Vilanterol Tr [Anoro Ellipta 62.5-25 Mcg INH] 1 puff INHALATION RT-DAILY clonazePAM [KlonoPIN] 0.5 mg PO HS Albuterol Nebulized [Ventolin Nebulized] 2.5 mg INHALATION RT-QID PRN PRN Reason: Shortness Of Breath Folic Acid 2 mg PO DAILY Multivitamins, Thera [Multivitamin (formulary)] 1 tab PO DAILY Chlorthalidone [Hygroton] 25 mg PO DAILY Pantoprazole [Protonix] 40 mg PO BID Albuterol Inhaler [Ventolin Hfa Inhaler] 2 puff INHALATION RT-QID PRN PRN Reason: Shortness Of Breath Cyanocobalamin (Vitamin B-12) [Vitamin B-12] 1,000 mcg PO DAILY Potassium Chloride ER [K-Dur 20] 20 meq PO DAILY Discharge Medication List Umeclidinium Brm/Vilanterol Tr [Anoro Ellipta 62.5-25 Mcg INH] 1 puff INHALATION RT-DAILY 03/01/19 [History] clonazePAM [KlonoPIN] 0.5 mg PO HS 03/01/19 [History] Albuterol Nebulized [Ventolin Nebulized] 2.5 mg INHALATION RT-QID PRN 05/09/20 [History] Folic Acid 2 mg PO DAILY 07/13/20 [History] Chlorthalidone [Hygroton] 25 mg PO DAILY 03/07/21 [History] Multivitamins, Thera [Multivitamin (formulary)] 1 tab PO DAILY 03/07/21 [History] Pantoprazole [Protonix] 40 mg PO BID 03/07/21 [History] Albuterol Inhaler [Ventolin Hfa Inhaler] 2 puff INHALATION RT-QID PRN 04/15/21 [History] Cyanocobalamin (Vitamin B-12) [Vitamin B-12] 1,000 mcg PO DAILY 04/15/21 [History] Potassium Chloride ER [K-Dur 20] 20 meq PO DAILY 06/29/21 [History] Acetaminophen Tab [Tylenol] 650 mg PO Q6HR PRN tab 07/04/21 [Rx] Levofloxacin [Levaquin] 500 mg PO DAILY 1 Days #7 tab 07/04/21 [Rx] predniSONE 10 mg PO DIRECTED #30 tab 07/04/21 [Rx] Follow up Appointment(s)/Referral(s): Adam Ortega Jr, [Primary Care Provider] - 1-2 days Kiba,Marc, PAC [PHYSICIAN CARBIDE GRINDER] - 3 Weeks (Patient may follow-up with Marc Vega PA-C or Dr. Jacobo Luna at [facility] in 2-3 weeks following discharge. ) Activity/Diet/Wound Care/Special Instructions: 1. Patient should avoid excessive bending, twisting, and lifting; no lifting greater than 10 pounds
[2021-07-04 17:18] LABS: Glucose,Whole Blood 87 mg/dL (75-99)
[2021-07-04 20:00] LABS: Glucose,Whole Blood 204 mg/dL (75-99)
[2021-07-05 01:45] LABS: Magnesium 1.9 mg/dL (1.6-2.3)
[2021-07-05] MEDS: SODIUM CHLORIDE 0.9% 1,000 ML IV SCH (03:07)
[2021-07-05] MEDS ORDERED: FLUTICASONE 50MCG/SPRAY NASAL 16GM EA NOSTRIL PRN (05:32)
[2021-07-05 06:09] LABS: Glucose,Whole Blood 100 mg/dL (75-99)
[2021-07-05] MEDS: INSULIN ASPART (NovoLOG) 100 UNIT/ML VIAL SQ SCH (06:20)
[2021-07-05] MEDS: IPRATROPIUM-ALBUTEROL 3 ML NEB INHALATION PRN (08:18)
[2021-07-05] MEDS: BUDESONIDE 0.5 MG/2 ML NEBU INHALATION SCH (08:18)
[2021-07-05] MEDS: FORMOTEROL FUMARATE 20 MCG/2 ML NEBU INHALATION SCH (08:18)
[2021-07-05] MEDS ORDERED: DOCUSATE 100 MG CAP PO STA (08:28)
[2021-07-05] MEDS: ENOXAPARIN 40 MG/0.4 ML SYRINGE SQ SCH (08:45)
[2021-07-05] MEDS: CYANOCOBALAMIN 500 MCG TAB PO SCH (08:45)
[2021-07-05] MEDS: POTASSIUM CHLORIDE ER 20 MEQ TAB.ER PO SCH (08:46)
[2021-07-05] MEDS: DULoxetine HCL 30 MG CAPSULE.DR PO SCH (08:46)
[2021-07-05] MEDS: FOLIC ACID 1 MG TAB PO SCH (08:46)
[2021-07-05] MEDS: clonazePAM 0.5 MG TAB PO SCH (08:46)
[2021-07-05] MEDS: LEVOFLOXACIN 750 MG TAB PO SCH (08:46)
[2021-07-05] MEDS: PANTOPRAZOLE 40 MG TABLET PO SCH (08:46)
[2021-07-05] MEDS: MULTIVITAMINS, THERA 1 EACH TAB PO SCH (08:47)
[2021-07-05] MEDS: LIDOCAINE 5% PATCH TOPICAL SCH (08:47)
[2021-07-05] MEDS ORDERED: predniSONE 20 MG TAB PO SCH (09:00)
[2021-07-05 09:11] VITALS: BP 124/59; PULSE 89; TEMP 97.9
--- NOTE | 2021-07-05 11:05 | P.PN ---
Subjective Progress Note Date: 07/05/21 This is a very pleasant 75-year-old gentleman who follows with Dr. Ortega is his primary care provider. He has a history of metastatic adenocarcinoma of the lungs. He also has a history of chronic obstructive pulmonary disease with an FEV1 value 34% of predicted. He follows with Dr. Nicole in our office for the same. He received chemotherapy this week and the next day he developed increasing shortness of breath cough and congestion and presented to the emergency room yesterday for the same. Chest x-ray revealed small chronic pleural effusion slightly increased compared to previous on 04/15/2021. CT angiogram ruled out pulmonary embolism. There is noted pulmonary emphysema. There is a stellate nodule in the right upper lobe not change compared to previous on 04/15/2021. White count 42.8. Hemoglobin 10.6. Sodium 132. Potassium 3.8. Creatinine 1.06. Malagon virus not detected. He is seen today in consultation on the selective care unit. He is currently sitting up in bed. He is on BiPAP 12/5 and 28% FiO2 and maintaining O2 saturations in the 90s. He is awake and alert. He is feeling a bit better today compared to yesterday. On 07/01/2021 patient seen in follow-up on selective care unit, he is still coughing, and wheezing, however she states that she is feeling better and breathing a little easier today, he is off BiPAP support, is currently on 3 L of oxygen his pulse ox of 97%, he is afebrile, hemodynamically he is stable, his had no acute events overnight. No new chest x-ray, his chest x-ray on admission showed small chronic pleural effusion, CTA chest showed no evidence of pulmonary embolism, there was pulmonary emphysema, and a small left pleural effusion was felt to be slightly increased to old exam. Today's labs have been reviewed, his white blood cell count is trending down and is down to 37.4 on today's labs, hemoglobin is stable at 10.6, sodium is 134, potassium is 3.9, chloride is 92, CO2 is 34, BUN is 33 creatinine 0.88. He was COVID 19 negative. He is currently on a combination of azithromycin and Rocephin, he is on nebulized bronchodilators, IV steroids in the form of Solu-Medrol 60 mg every 6 hours, he is on home dose chlorthalidone, 20 mg daily. Renal function is stable, has had no nausea vomiting or diarrhea. He is tolerating oral intake. On 07/02/2021 patient seen in follow-up on selective care unit, he is awake and alert, oriented 3, vital signs have been stable, he is currently on 3 L of oxygen pulse ox is 95%. He did wear BiPAP support last night for a few hours, was switched over to nasal cannula, overall he states he is breathing comfortably, and his breathing has improved since admission, no complaints of chest discomfort, no fever or chills. He does get short of breath with exertion. No new chest x-ray today. Patient currently remains on combination of antibiotics with azithromycin and Rocephin, he is on IV Solu-Medrol 60 mg every 6 hours and nebulized bronchodilators. Today's labs have been reviewed and his white blood cell count is improving and is down to 26 on today's labs, hemoglobin is 10.2. Serum sodium is down to 130, potassium is 4.2, chloride is 92, CO2 is 34, B1 is 39 creatinine 0.89. Pro-calcitonin level came back negative at 0.08. His blood and sputum cultures have been negative thus far. The patient is seen today 07/03/2021 in follow-up on the selective care unit. He is currently resting comfortably in bed. Awake and alert in no acute distress. Chest x-rays revealing evidence of COPD with bilateral infiltrates and small effusions which are stable compared to previous. He is maintaining O2 saturation in the 90s on 3 L/m per nasal cannula. Sputum culture revealing gram-negative bacilli. Blood cultures revealing no growth. White count 15.5. Hemoglobin 10.8. White count 121. Sodium 129. Potassium 4.0. Creatinine 0.88. He is currently on bronchodilators, IV Solu-Medrol. Antibiotics in the form of azithromycin. The patient is seen today 07/04/2021 in follow-up on the selective care unit. He is currently sitting up at the bedside. Awake and alert in no acute distress. No worsening shortness of breath, cough or congestion. Sputum was positive for stenotrophomonas maltophilia. Currently on IV Zosyn. Remains on IV Solu-Medrol and bronchodilators. He is utilizing the incentive spirometer and flutter valve. White count 6.4. Hemoglobin 10.3. Sodium 1:30. Potassium 4.2. Creatinine 0.98. The patient is seen today 07/05/2021 in follow-up on the selective care unit. He is currently sitting up in bed. Awake and alert in no acute distress. Doing quite a bit better. No worsening shortness of breath, cough or congestion. Maintaining good O2 saturations in the upper 90s on 3 L/m per nasal cannula. Sputum culture was positive for stenotrophomonas maltophilia. Blood cultures revealed no growth. Potassium 4.0. Blood glucose 100. Magnesium 1.9. Currently on Levaquin and Zosyn. Remains on IV Solu-Medrol and bronchodilators. He is utilizing the incentive spirometer and flutter valve. Objective - Vital Signs Vital signs: Vital Signs Temp 97.9 F 07/05/21 08:00 Pulse 88 07/05/21 08:44 Resp 18 07/05/21 08:00 BP 124/59 07/05/21 08:00 Pulse Ox 98 07/05/21 08:21 Intake & Output 07/04/21 07/05/21 07/05/21 18:59 06:59 18:59 Intake Total 720 20 550 Output Total 1280 400 Balance 720 -1260 150 Weight 79.8 kg Intake: IV 20 10 Invasive Line 1 20 10 Oral 720 540 Output: Urine 1280 400 Other: Voiding Method Bedside Commode Bedside Commode Bedside Commode Urinal Urinal Urinal # Voids 2 - Exam GENERAL EXAM: Alert, very pleasant, 75-year-old male patient, on 3 L of oxygen, comfortable in no apparent distress. HEAD: Normocephalic/atraumatic. EYES: Normal reaction of pupils, equal size. Conjunctiva pink, sclera white. NOSE: Clear with pink turbinates. THROAT: No erythema or exudates. NECK: No masses, no JVD, no thyroid enlargement, no adenopathy. CHEST: No chest wall deformity. Symmetrical expansion. LUNGS: Equal air entry with diffuse rhonchi and wheezing CVS: Regular rate and rhythm, normal S1 and S2, no gallops, no murmurs, no rubs ABDOMEN: Soft, nontender. No hepatosplenomegaly, normal bowel sounds, no guarding or rigidity. EXTREMITIES: No clubbing, no edema, no cyanosis, 2+ pulses and upper and lower extremities. MUSCULOSKELETAL: Muscle strength and tone normal. SPINE: No scoliosis or deformity SKIN: No rashes CENTRAL NERVOUS SYSTEM: No focal deficits, tone is normal in all 4 extremities. PSYCHIATRIC: Alert and oriented -3. Appropriate affect. Intact judgment and insight. - Labs CBC & Chem 7: 07/04/21 07:37 07/05/21 01:06 Labs: Abnormal Lab Results - Last 24 Hours (Table) 07/04/21 07/04/21 07/04/21 Range/Units 07:37 11:49 19:59 Plt Count 96 L (150-450) k/uL Lymphocytes # 0.3 L (1.0-4.8) k/uL POC Glucose (mg/dL) 167 H 204 H (75-99) mg/dL 07/05/21 Range/Units 06:08 Plt Count (150-450) k/uL Lymphocytes # (1.0-4.8) k/uL POC Glucose (mg/dL) 100 H (75-99) mg/dL Microbiology - Last 24 Hours (Table) 06/30/21 02:24 Blood Culture - Preliminary Blood No Growth after 120 hours 06/30/21 02:39 Blood Culture - Preliminary Blood No Growth after 120 hours Assessment and Plan Assessment: 1 Acute hypoxemic respiratory failure secondary to an acute exacerbation of COPD with FEV1 value 34% of predicted, as well as stenotrophomonas maltophilia 2 Metastatic adenocarcinoma of the lungs, received chemotherapy on 06/28/2021 3 Right upper lobe spiculated lesion measuring 1 cm, stable compared to previous 4 Metastatic adenocarcinoma along with a 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 8 Obstructive sleep apnea, mild, not on CPAP therapy Plan: The patient was seen and evaluated by Dr. Mela Guerrier from the pulmonary standpoint Continue his home pulmonary medications Complete a prednisone taper Complete a course of Levaquin Follow-up in our office in 1-2 weeks' time I, the cosigning physician, performed a history & physical examination of the patient. Lungs sounds with bilateral end expiratory wheeze, diminished. Main taining good O2 saturations in the 90s on 3 L nasal cannula. I discussed the assessment and plan of care with my nurse practitioner, Linh Way. I attest to the above note as dictated by her.
== END 2021-07-05 10:17 | disposition home or self-care (01) | DRG 190 ==
LOC: EC 20:59 → 3SCARD 06-30 02:49
PROVIDERS: ADMIT Family Medicine; ATTEND Family Medicine
PROC: 5A09557 Assistance with Respiratory Ventilation, Greater than 96 Consecutive Hours, Continuous Positive Airway Pressure (ICD-10-PCS; principal; 2021-06-29)
DX: J43.9 Emphysema, unspecified (principal); J96.21 Acute and chronic respiratory failure with hypoxia; S22.050A Wedge compression fracture of T5-T6 vertebra, initial encounter for closed fracture; C79.89 Secondary malignant neoplasm of other specified sites; J91.0 Malignant pleural effusion; C34.11 Malignant neoplasm of upper lobe, right bronchus or lung; E87.1 Hypo-osmolality and hyponatremia; D63.0 Anemia in neoplastic disease; F10.21 Alcohol dependence, in remission; Z20.822 Contact with and (suspected) exposure to COVID-19; E86.0 Dehydration; G47.33 Obstructive sleep apnea (adult) (pediatric); I87.2 Venous insufficiency (chronic) (peripheral); G47.52 REM sleep behavior disorder; F41.9 Anxiety disorder, unspecified; R32 Unspecified urinary incontinence; T50.2X5A Adverse effect of carbonic-anhydrase inhibitors, benzothiadiazides and other diuretics, initial encounter; T38.0X5A Adverse effect of glucocorticoids and synthetic analogues, initial encounter; K21.9 Gastro-esophageal reflux disease without esophagitis; H91.93 Unspecified hearing loss, bilateral; H93.13 Tinnitus, bilateral; Z79.899 Other long term (current) drug therapy; Z87.01 Personal history of pneumonia (recurrent); Z87.19 Personal history of other diseases of the digestive system; Z85.46 Personal history of malignant neoplasm of prostate; Z90.79 Acquired absence of other genital organ(s); Z85.828 Personal history of other malignant neoplasm of skin; Z91.81 History of falling; Z96.641 Presence of right artificial hip joint; Z87.891 Personal history of nicotine dependence; Z92.25 Personal history of immunosuppression therapy; Z86.19 Personal history of other infectious and parasitic diseases; Z87.311 Personal history of (healed) other pathological fracture; Z98.890 Other specified postprocedural states; Z88.1 Allergy status to other antibiotic agents; Z88.2 Allergy status to sulfonamides; Z80.3 Family history of malignant neoplasm of breast; Z81.1 Family history of alcohol abuse and dependence; Z82.5 Family history of asthma and other chronic lower respiratory diseases; Z81.8 Family history of other mental and behavioral disorders; Z82.0 Family history of epilepsy and other diseases of the nervous system; Z82.69 Family history of other diseases of the musculoskeletal system and connective tissue
CPT/HCPCS: 36415; 71046; 71275; 80048; 80053; 83605; 83735; 83880; 84132; 84145; 84484; 85025; 85379; 85610; 85730; 87040; 87070; 87077; 87186; 87205; 87635; 93005; 94640; 94660; 94667; 94760; 99285

== ENCOUNTER 2021-07-28 17:37 | Inpatient (IN) | payer MEDICARE ==
--- NOTE | 2021-07-28 18:01 | ED ---
General Adult HPI - General Chief complaint: Shortness of Breath Stated complaint: ISACC Time Seen by Provider: 07/28/21 17:51 Source: patient, family Mode of arrival: wheelchair Limitations: physical limitation - History of Present Illness Initial comments: Patient presents to the ED with his for evaluation. Patient states that he has had increasing dyspnea for the past 2 days. Patient also admits to having a worsening cough for the past 2 days. Patient's states that the patient has also had increased bilateral lower extremity edema over the past 2 days. Patient states that he has COPD and lung cancer, and he states that he is normally on 2.5 L of home O2. Patient states that he has been using his inhalers and giving himself neb treatments without much relief. Patient states that his oncologist prescribed him a Medrol Dosepak and a course of doxycycline, which he has been taking for the past 2 days, including today. Patient states that he last had chemotherapy 9 days ago. Patient denies having any pain, fever or chills, headache, focal neuro deficit, chest pain, hemoptysis, palpitations, dizziness, abdominal pain, nausea/vomiting/diarrhea, dysuria or urinary symptoms, decreased urine output, leg or calf pain, or any other symptoms or complaints. Patient states that he is fully vaccinated for Covid. - Related Data Home Medications Medication Instructions Recorded Confirmed Umeclidinium Brm/Vilanterol Tr 1 puff INHALATION RT-DAILY 03/01/19 07/28/21 [Anoro Ellipta 62.5-25 Mcg INH] clonazePAM [KlonoPIN] 0.5 mg PO HS 03/01/19 07/28/21 Albuterol Nebulized [Ventolin 2.5 mg INHALATION RT-QID PRN 05/09/20 07/28/21 Nebulized] Folic Acid 2 mg PO DAILY 07/13/20 07/28/21 Multivitamins, Thera [Multivitamin 1 tab PO DAILY 03/07/21 07/28/21 (formulary)] Pantoprazole [Protonix] 40 mg PO BID 03/07/21 07/28/21 Albuterol Inhaler [Ventolin Hfa 2 puff INHALATION RT-QID PRN 04/15/21 07/28/21 Inhaler] Potassium Chloride ER [K-Dur 20] 20 meq PO DAILY 06/29/21 07/28/21 Acetaminophen-Codeine 300-30mg 1 - 2 tab PO Q6H PRN 07/28/21 07/28/21 [Tylenol w/codeine #3] Doxycycline Hyclate 100 mg PO BID 07/28/21 07/28/21 Furosemide [Lasix] 40 mg PO BID 07/28/21 07/28/21 methylPREDNISolone Dose Pack See Taper PO DIRECTED 07/28/21 07/28/21 [Medrol Dose Pack] Previous Rx's Medication Instructions Recorded Acetaminophen Tab [Tylenol] 650 mg PO Q6HR PRN tab 07/04/21 Fluticasone Nasal [place] [Flonase 1 spray EA NOSTRIL BID PRN #1 07/05/21 Nasal [place]] bottle Allergies Allergy/AdvReac Type Severity Reaction Status Date / Time Sulfa (Sulfonamide Allergy Unknown Rash/Hives Verified 07/28/21 18:21 Antibiotics) tetracycline Allergy Unknown "Fuzzy Verified 07/28/21 18:21 headed" Review of Systems ROS Statement: Those systems with pertinent positive or pertinent negative responses have been documented in the HPI. ROS Other: All systems not noted in ROS Statement are negative. Past Medical History Past Medical History: Cancer, GERD/Reflux, Pneumonia Additional Past Medical History / Comment(s): 05/10/20 pericardial effusion with early cardiac tamponade/acute respiratory failure with pericardiocentesis/pneumonia/bilateral leg edema, cancer pericardial sac/chest lymph nodes per pt/spouse-receiving chemotherapy-last time approximately 6 weeks ago/on hold for recent hernia surgery/then URI, past vertigo when first standing /syncope pt states d/t electrolyte disturbance, anemia with transfusions, lung nodules being monitored and thought possibly scarring from previous pneumonia, prostate cancer with surgery, skin cancer with removals, gastritis, hiatal hernia, severe clausterphobia, 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 and has had past falls out of bed, bilateral TYONEK and tinnitis, past alcoholism per pt but quit drinking 31 plus yrs ago, shingles last week History of Any Multi-Drug Resistant Organisms: None Reported Past Surgical History: Joint Replacement, Prostate Surgery Additional Past Surgical History / Comment(s): 03/12/21 inguinal hernia surgery, 05/18/20 EGD, colonoscopy, robot assisted laparoscopic prostatectomy with bilateral lymph node dissection, skin cancer removals, rt hip replacement Past Anesthesia/Blood Transfusion Reactions: No Reported Reaction Additional Past Anesthesia/Blood Transfusion Reaction / Comment(s): Claustrophobic. Past Psychological History: No Psychological Hx Reported Smoking Status: Former smoker Past Alcohol Use History: None Reported Past Drug Use History: None Reported - Past Family History Mother Family Medical History: Cancer Additional Family Medical History / Comment(s): breast cancer, Etoh abuse. Father Family Medical History: COPD, Dementia, Musculoskeletal Disorder, Neurologic Disorder Additional Family Medical History / Comment(s): parkinson's, ETOH abuse General Exam Limitations: physical limitation General appearance: alert Head exam: Present: atraumatic, normocephalic Eye exam: Present: normal appearance, EOMI ENT exam: Present: mucous membranes moist Neck exam: Present: other (Trachea is in midline) Respiratory exam: Present: prolonged expiratory, other (Mild respiratory distress; diffuse expiratory wheezes bilaterally; equal breath sounds bilaterally). Absent: rales, stridor Cardiovascular Exam: Present: regular rate, normal rhythm, normal heart sounds, other (Normal radial pulses bilaterally) GI/Abdominal exam: Present: soft. Absent: distended, tenderness, guarding Extremities exam: Present: other (Bilateral lower leg pitting edema; negative Homans sign bilaterally). Absent: tenderness, calf tenderness Neurological exam: Present: alert, oriented X3. Absent: motor sensory deficit Psychiatric exam: Present: normal affect, normal mood Skin exam: Present: warm, dry, intact, normal color Course Vital Signs 07/28/21 07/28/21 07/28/21 17:38 17:55 19:04 Temperature 98.3 F Pulse Rate 92 85 Respiratory 20 25 H 16 Rate Blood Pressure 138/73 O2 Sat by Pulse 96 Oximetry 07/28/21 07/28/21 19:18 20:53 Temperature 98.3 F Pulse Rate 86 68 Respiratory 16 18 Rate Blood Pressure 130/86 O2 Sat by Pulse 97 Oximetry - Reevaluation(s) Reevaluation #1: 07/28/21 21:26 Case, H&P, test results and ED management were discussed with Dr. Garcia. He accepts hospital admission. He agrees with pulmonology consultation. He has no further recommendations at this time. 07/28/21 21:28 Patient states that his dyspnea has improved with the DuoNeb treatment that he was given in the ED, and patient's tachypnea/respiratory distress has improved as well. Patient denies development of any new symptoms while in the ED. Patient remains alert and oriented 4. Patient and are aware the patient's test results, and patient agrees with hospital admission at this time. EKG Findings - EKG Comments: EKG Findings:: Normal sinus rhythm, ventricular rate of 88 bpm, no ectopy, normal TX and QRS intervals, normal QT interval, normal axis, no ST or T-wave abnormality Medical Decision Making - Medical Decision Making Patient was initially treated with IV antibiotics in the ED given his chest x- ray report and reported cough. Patient was also treated with a DuoNeb treatment and IV Solu-Medrol in the ED. Patient's CT angiography chest shows no pulmonary embolism, but does demonstrate bilateral pleural effusions. Dr. Garcia was contacted by telephone, and he has accepted hospital admission for further evaluation and treatment of the patient's pleural effusions and COPD. A pulmonology consultation order was placed. - Lab Data Result diagrams: 07/28/21 18:09 07/28/21 18:09 Lab Results 07/28/21 07/28/21 07/28/21 Range/Units 18:09 18:09 18:09 WBC 6.5 (3.8-10.6) k/uL RBC 2.56 L (4.30-5.90) m/uL Hgb 9.4 L (13.0-17.5) gm/dL Hct 28.2 L (39.0-53.0) % MCV 110.1 H (80.0-100.0) fL MCH 36.6 H (25.0-35.0) pg MCHC 33.2 (31.0-37.0) g/dL RDW 17.7 H (11.5-15.5) % Plt Count 51 L (150-450) k/uL MPV 9.9 Neutrophils % (Manual) 74 % Band Neuts % (Manual) 9 % Lymphocytes % (Manual) 10 % Monocytes % (Manual) 7 % Neutrophils # (Manual) 5.30 (1.3-7.7) k/uL Lymphocytes # (Manual) 0.65 L (1.0-4.8) k/uL Monocytes # (Manual) 0.46 (0-1.0) k/uL Nucleated RBCs 0 (0-0) /100 WBC Manual Slide Review Performed Anisocytosis Slight Macrocytosis Marked A PT 9.5 (9.0-12.0) sec INR 0.9 (<1.2) APTT 20.4 L (22.0-30.0) sec D-Dimer 0.75 H (<0.60) mg/L FEU Sodium 134 L (137-145) mmol/L Potassium 4.4 (3.5-5.1) mmol/L Chloride 92 L (98-107) mmol/L Carbon Dioxide 37 H (22-30) mmol/L Anion Gap 5 mmol/L BUN 37 H (9-20) mg/dL Creatinine 1.08 (0.66-1.25) mg/dL Est GFR (CKD-EPI)AfAm 78 (>60 ml/min/1.73 sqM) Est GFR (CKD-EPI)NonAf 67 (>60 ml/min/1.73 sqM) Glucose 110 H (74-99) mg/dL Plasma Lactic Acid Abhishek (0.7-2.0) mmol/L Calcium 8.7 (8.4-10.2) mg/dL Magnesium 2.1 (1.6-2.3) mg/dL Total Bilirubin 0.1 L (0.2-1.3) mg/dL AST 37 (17-59) U/L ALT 19 (4-49) U/L Alkaline Phosphatase 104 (38-126) U/L Troponin I (0.000-0.034) ng/mL NT-Pro-B Natriuret Pep pg/mL Total Protein 5.5 L (6.3-8.2) g/dL Albumin 3.2 L (3.5-5.0) g/dL Coronavirus (PCR) (Not Detectd) 07/28/21 07/28/21 07/28/21 Range/Units 18:09 18:09 18:09 WBC (3.8-10.6) k/uL RBC (4.30-5.90) m/uL Hgb (13.0-17.5) gm/dL Hct (39.0-53.0) % MCV (80.0-100.0) fL MCH (25.0-35.0) pg MCHC (31.0-37.0) g/dL RDW (11.5-15.5) % Plt Count (150-450) k/uL MPV Neutrophils % (Manual) % Band Neuts % (Manual) % Lymphocytes % (Manual) % Monocytes % (Manual) % Neutrophils # (Manual) (1.3-7.7) k/uL Lymphocytes # (Manual) (1.0-4.8) k/uL Monocytes # (Manual) (0-1.0) k/uL Nucleated RBCs (0-0) /100 WBC Manual Slide Review Anisocytosis Macrocytosis PT (9.0-12.0) sec INR (<1.2) APTT (22.0-30.0) sec D-Dimer (<0.60) mg/L FEU Sodium (137-145) mmol/L Potassium (3.5-5.1) mmol/L Chloride (98-107) mmol/L Carbon Dioxide (22-30) mmol/L Anion Gap mmol/L BUN (9-20) mg/dL Creatinine (0.66-1.25) mg/dL Est GFR (CKD-EPI)AfAm (>60 ml/min/1.73 sqM) Est GFR (CKD-EPI)NonAf (>60 ml/min/1.73 sqM) Glucose (74-99) mg/dL Plasma Lactic Acid Abhishek 1.2 (0.7-2.0) mmol/L Calcium (8.4-10.2) mg/dL Magnesium (1.6-2.3) mg/dL Total Bilirubin (0.2-1.3) mg/dL AST (17-59) U/L ALT (4-49) U/L Alkaline Phosphatase (38-126) U/L Troponin I <0.012 (0.000-0.034) ng/mL NT-Pro-B Natriuret Pep 626 pg/mL Total Protein (6.3-8.2) g/dL Albumin (3.5-5.0) g/dL Coronavirus (PCR) (Not Detectd) 07/28/21 Range/Units 18:10 WBC (3.8-10.6) k/uL RBC (4.30-5.90) m/uL Hgb (13.0-17.5) gm/dL Hct (39.0-53.0) % MCV (80.0-100.0) fL MCH (25.0-35.0) pg MCHC (31.0-37.0) g/dL RDW (11.5-15.5) % Plt Count (150-450) k/uL MPV Neutrophils % (Manual) % Band Neuts % (Manual) % Lymphocytes % (Manual) % Monocytes % (Manual) % Neutrophils # (Manual) (1.3-7.7) k/uL Lymphocytes # (Manual) (1.0-4.8) k/uL Monocytes # (Manual) (0-1.0) k/uL Nucleated RBCs (0-0) /100 WBC Manual Slide Review Anisocytosis Macrocytosis PT (9.0-12.0) sec INR (<1.2) APTT (22.0-30.0) sec D-Dimer (<0.60) mg/L FEU Sodium (137-145) mmol/L Potassium (3.5-5.1) mmol/L Chloride (98-107) mmol/L Carbon Dioxide (22-30) mmol/L Anion Gap mmol/L BUN (9-20) mg/dL Creatinine (0.66-1.25) mg/dL Est GFR (CKD-EPI)AfAm (>60 ml/min/1.73 sqM) Est GFR (CKD-EPI)NonAf (>60 ml/min/1.73 sqM) Glucose (74-99) mg/dL Plasma Lactic Acid Abhishek (0.7-2.0) mmol/L Calcium (8.4-10.2) mg/dL Magnesium (1.6-2.3) mg/dL Total Bilirubin (0.2-1.3) mg/dL AST (17-59) U/L ALT (4-49) U/L Alkaline Phosphatase (38-126) U/L Troponin I (0.000-0.034) ng/mL NT-Pro-B Natriuret Pep pg/mL Total Protein (6.3-8.2) g/dL Albumin (3.5-5.0) g/dL Coronavirus (PCR) Not Detected (Not Detectd) - Radiology Data Radiology results: report reviewed (Chest x-ray: There is increasing lower lobe pneumonia and pleural fluid compared to old exam. No obvious heart failure.) CT angiography chest with IV contrast: No evidence of pulmonary embolism. Bilateral pleural effusions which appear increased compared to old exam. There is progression of the T6 compression fracture compared to old exam. L1 compression fracture not changed. Disposition Clinical Impression: Dyspnea, COPD (chronic obstructive pulmonary disease), Pleural effusion Disposition: ADMITTED IP TO THIS HOSP Condition: Stable Is patient prescribed a controlled substance at d/c from ED?: No Referrals: Adam Ortega Jr, [Primary Care Provider] - 1-2 days Time of Disposition: 21:26
[2021-07-28] MEDS ORDERED: IPRATROPIUM-ALBUTEROL 3 ML NEB INHALATION STA (18:09)
[2021-07-28 18:38] LABS: Albumin 3.2 g/dL (3.5-5.0); Calcium 8.7 mg/dL (8.4-10.2); Magnesium 2.1 mg/dL (1.6-2.3); Potassium 4.4 mmol/L (3.5-5.1); Total Bilirubin 0.1 mg/dL (0.2-1.3); Total Protein 5.5 g/dL (6.3-8.2)
--- NOTE | 2021-07-28 18:54 | XR ---
EXAMINATION TYPE: XR chest 1V portable DATE OF EXAM: 07/28/2021 COMPARISON: 07/03/2021 HISTORY: Short of breath TECHNIQUE: FINDINGS: There is blunting of the costophrenic angles. There is infiltrate at both lung bases and mo re on the left side. There is no gross heart failure. There are no hilar masses. IMPRESSION: There is increasing lower lobe pneumonia and pleural fluid compared to old exam. No obvio us heart failure.
[2021-07-28 18:57] LABS: INR 0.9 (<1.2); Partial Thromboplastin Time 20.4 sec (22.0-30.0); Prothrombin Time 9.5 sec (9.0-12.0)
[2021-07-28 20:11] LABS: Anisocytosis Slight; HCT 28.2 % (39.0-53.0); HGB 9.4 gm/dL (13.0-17.5); MCH 36.6 pg (25.0-35.0); MCHC 33.2 g/dL (31.0-37.0); MCV 110.1 fL (80.0-100.0); Macrocytosis Marked; Mean Platelet Volume 9.9; RBC 2.56 m/uL (4.30-5.90); RDW 17.7 % (11.5-15.5); WBC 6.5 k/uL (3.8-10.6)
[2021-07-28] MEDS ORDERED: AZITHROMYCIN 500 MG in SODIUM CHLORIDE 0.9% 250 ML IVPB STA (20:23)
[2021-07-28 20:36] LABS: Band Neutrophils % 9 %; Lymphocytes # (M) 0.65 k/uL (1.0-4.8); Monocytes # (M) 0.46 k/uL (0-1.0); Neutrophils % (M) 74 %; Nucleated Red Blood Cells 0 /100 WBC (0-0); Total Cells Counted 100
[2021-07-28 20:37] LABS: Platelet Count 51 k/uL (150-450)
--- NOTE | 2021-07-28 20:56 | CT ---
EXAMINATION TYPE: CT chest angio for PE DATE OF EXAM: 07/28/2021 COMPARISON: 06/30/2021 HISTORY: SOB and h/o lung CA CT DLP: 315.3 mGycm Automated exposure control for dose reduction was used. CONTRAST: Performed with IV Contrast, patient injected with 80 mL of Isovue 370. There are 3-D post processed images. There is pulmonary emphysema. There is bilateral pleural effusions slightly larger on the left side. Heart size is normal. There is no pericardial effusion. There is no mediastinal adenopathy. There is normal contrast opacification of the pulmonary arteries. There are no filling defects. There are no h ilar masses. There is 50% anterior wedging of L1 vertebral body. There is T6 anterior wedging 50%. The sternum is intact. I see no evidence of a rib fracture. Upper abdominal soft tissues are intact. IMPRESSION: No evidence of pulmonary embolism. Bilateral pleural effusions which appear increased compared to old exam. There is progression of the T6 compression fracture compared to old exam. L1 compression fract ure not changed.
[2021-07-28] MEDS ORDERED: methylPREDNISolone SOD SUCCI 125 MG/2 ML VIAL IV STA (21:25)
[2021-07-28] MEDS ORDERED: ALBUTEROL NEBULIZED 2.5 MG/3 ML INHALATION PRN ×2 (21:28→23:40)
[2021-07-28] MEDS ORDERED: ACETAMINOPHEN TAB 325 MG TAB PO PRN (23:40)
[2021-07-28] MEDS ORDERED: methylPREDNISolone 4 MG TAB TAPER PO SCH (23:45)
[2021-07-29] MEDS ORDERED: methylPREDNISolone 4 MG TAB PO ONE (00:45)
[2021-07-29] MEDS: clonazePAM 0.5 MG TAB PO SCH ×2 (01:17→22:22)
[2021-07-29] MEDS: Acetaminophen-Codeine 300-30mg TAB PO PRN ×3 (01:17→22:20)
[2021-07-29 05:17] LABS: Anisocytosis Slight; HCT 24.8 % (39.0-53.0); HGB 8.3 gm/dL (13.0-17.5); MCH 36.9 pg (25.0-35.0); MCHC 33.3 g/dL (31.0-37.0); MCV 110.6 fL (80.0-100.0); Macrocytosis Marked; Mean Platelet Volume 9.2; RBC 2.24 m/uL (4.30-5.90); RDW 17.5 % (11.5-15.5); WBC 5.9 k/uL (3.8-10.6)
[2021-07-29 05:36] LABS: ALT 18 U/L (4-49); AST 35 U/L (17-59); African American GFR (CKD) 84 (>60 ml/min/1.73 sqM); Albumin 2.7 g/dL (3.5-5.0); Alkaline Phosphatase 96 U/L (38-126); Anion Gap 4 mmol/L; Blood Urea Nitrogen 38 mg/dL (9-20); Calcium 8.5 mg/dL (8.4-10.2); Carbon Dioxide 37 mmol/L (22-30); Chloride 93 mmol/L (98-107); Glucose 98 mg/dL (74-99); Non-African American GFR(CKD) 72 (>60 ml/min/1.73 sqM); Potassium 4.1 mmol/L (3.5-5.1); Sodium 134 mmol/L (137-145); Total Bilirubin <0.1 mg/dL (0.2-1.3); Total Protein 4.9 g/dL (6.3-8.2)
[2021-07-29 06:13] LABS: Platelet Count 43 k/uL (150-450)
[2021-07-29] MEDS: FOLIC ACID 1 MG TAB PO SCH (07:31)
[2021-07-29] MEDS: FUROSEMIDE 40 MG TAB PO SCH ×2 (07:32→22:19)
[2021-07-29] MEDS: MULTIVITAMINS, THERA 1 EACH TAB PO SCH (07:32)
[2021-07-29] MEDS: PANTOPRAZOLE 40 MG TABLET PO SCH ×2 (07:32→22:19)
[2021-07-29] MEDS: FORMOTEROL FUMARATE 20 MCG/2 ML NEBU INHALATION SCH ×2 (08:00→19:18)
[2021-07-29] MEDS: IPRATROPIUM 0.5 MG/2.5 ML NEBU INHALATION SCH ×4 (08:00→19:17)
[2021-07-29] MEDS ORDERED: methylPREDNISolone 4 MG TAB PO SCH (09:00)
[2021-07-29] MEDS ORDERED: DOXYCYCLINE 100 MG CAP PO SCH (09:00)
[2021-07-29] MEDS ORDERED: FLUTICASONE 50MCG/SPRAY NASAL 16GM EA NOSTRIL PRN (09:00)
--- NOTE | 2021-07-29 09:09 | P.HPIM ---
History of Present Illness H&P Date: 07/29/21 Chief Complaint: Shortness of breath Juma is a pleasant white male,with a known history of COPD and smoking. He was found to have pericardial effsusion last year along with bilateral lower extremity edema . The patient had percutaneous pericardial drainage of 05/10/20 w ith cytology positive for metastatic adenocarcinoma, consistent with lung or upper GI primary. Patient had a prior history of prostate cancer with a radical prostatectomy in 03/12. PSA was normal recently. He had multiple tests including MRI, PET , colonoscopy failing to show other etiology. He is most recently been discontinued on immunotherapy and is been undergoing chemotherapy only. He is currently being followed by and Dr Trejo for the lung cancer, however there is no significant primary tumor found.. He came to the emergency room last night with complaints of increasing shortness of breath over the past 2 days. He denies any current chest pains, pressures. Complains of shortness of breath. He complains of left upper back pain. He denies any nausea or vomiting. He states his appetite has not been good but he forces himself to eat. He has a known T6 compression fracture along the L1 compression fracture. He reports ongoing bipedal edema below the knees. He is not wearing support hose that he was given his last admission. He has oxygen at home but no BiPAP. Currently is resting comfortably in his bed. He feels slightly improved. Vitals are stable this morning with a pulse oximetry 90% on 3 L of O2. Heart rate and blood pressure both normal ranges. Laboratory studies show a macrocytic anemia 8.3 hemoglobin. His BUN is 38 and creatinine 1.02 consistent with dehydration. Total protein and albumin are decreased consistent with mild malnutrition. Chest x-ray emergency room showed increasing lower lobe pneumonia and pleural effusion. CTA showed no pulmonary embolism bilateral pleural effusions. Increased compared to the old exam. Progression of the T6 compression fracture. Review of Systems All systems: negative Past Medical History Past Medical History: Cancer, GERD/Reflux, Pneumonia Additional Past Medical History / Comment(s): 05/10/20 pericardial effusion with early cardiac tamponade/acute respiratory failure with pericardiocentesis/pneumonia/bilateral leg edema, cancer pericardial sac/chest lymph nodes per pt/spouse-receiving chemotherapy-last time approximately 6 weeks ago/on hold for recent hernia surgery/then URI, past vertigo when first standing/syncope pt states d/t electrolyte disturbance, anemia with transfusions, lung nodules being monitored and thought possibly scarring from previous pneumonia, prostate cancer with surgery, skin cancer with removals, gastritis, hiatal hernia, severe clausterphobia, 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 and has had past falls out of bed, bilateral [place] and tinnitis, past alcoholism per pt but quit drinking 31 plus yrs ago, shingles last week History of Any Multi-Drug Resistant Organisms: None Reported Past Surgical History: Joint Replacement, Prostate Surgery Additional Past Surgical History / Comment(s): 03/12/21 inguinal hernia surgery, 05/18/20 EGD, colonoscopy, robot assisted laparoscopic prostatectomy with bilateral lymph node dissection, skin cancer removals, rt hip replacement Past Anesthesia/Blood Transfusion Reactions: No Reported Reaction Additional Past Anesthesia/Blood Transfusion Reaction / Comment(s): Claust rophobic. Past Psychological History: No Psychological Hx Reported Additional Psychological History / Comment(s): Pt resides with his spouse and her adult son. Spouse and son are caregivers for patient. Pt unable to ambulate any distance, he is assisted to wheelchair. He has a nebulizer and home oxygen. He also has a pulse oximetry. His spouse/son drive him to [employer]. Smoking Status: Former smoker Past Alcohol Use History: None Reported Additional Past Alcohol Use History / Comment(s): Pt started smoking as a teen and quit 04/2020. Quit alcohol 31 yrs ago- states Hx of heavy alcohol use. Past Drug Use History: None Reported - Past Family History Mother Family Medical History: Cancer Additional Family Medical History / Comment(s): breast cancer, Etoh abuse. Father Family Medical History: COPD, Dementia, Musculoskeletal Disorder, Neurologic Disorder Additional Family Medical History / Comment(s): parkinson's, ETOH abuse Medications and Allergies Home Medications Medication Instructions Recorded Confirmed Type Umeclidinium Brm/Vilanterol Tr 1 puff INHALATION RT-DAILY 03/01/19 07/28/21 History [Anoro Ellipta 62.5-25 Mcg INH] clonazePAM [KlonoPIN] 0.5 mg PO HS 03/01/19 07/28/21 History Albuterol Nebulized [Ventolin 2.5 mg INHALATION RT-QID PRN 05/09/20 07/28/21 History Nebulized] Folic Acid 2 mg PO DAILY 07/13/20 07/28/21 History Multivitamins, Thera [Multivitamin 1 tab PO DAILY 03/07/21 07/28/21 History (formulary)] Pantoprazole [Protonix] 40 mg PO BID 03/07/21 07/28/21 History Albuterol Inhaler [Ventolin Hfa 2 puff INHALATION RT-QID PRN 04/15/21 07/28/21 History Inhaler] Potassium Chloride ER [K-Dur 20] 20 meq PO DAILY 06/29/21 07/28/21 History Acetaminophen Tab [Tylenol] 650 mg PO Q6HR PRN tab 07/04/21 07/28/21 Rx Fluticasone Nasal [place] [Flonase 1 spray EA NOSTRIL BID PRN #1 07/05/21 07/28/21 Rx Nasal [place]] bottle Acetaminophen-Codeine 300-30mg 1 - 2 tab PO Q6H PRN 07/28/21 07/28/21 History [Tylenol w/codeine #3] Doxycycline Hyclate 100 mg PO BID 07/28/21 07/28/21 History Furosemide [Lasix] 40 mg PO BID 07/28/21 07/28/21 History methylPREDNISolone Dose Pack See Taper PO DIRECTED 07/28/21 07/28/21 History [Medrol Dose Pack] Allergies Allergy/AdvReac Type Severity Reaction Status Date / Time Sulfa (Sulfonamide Allergy Unknown Rash/Hives Verified 07/28/21 18:21 Antibiotics) tetracycline Allergy Unknown "Fuzzy Verified 07/28/21 18:21 headed" Physical Exam Vitals: Vital Signs Temp Pulse Pulse Resp BP BP Pulse Ox 07/29/21 08:22 84 07/29/21 08:13 86 07/29/21 08:12 86 07/29/21 08:00 82 98 07/29/21 07:00 97.9 F 79 20 115/67 99 07/29/21 02:00 97.8 F 84 20 122/77 100 07/28/21 22:52 97.5 F L 99 20 104/74 98 07/28/21 20:53 98.3 F 68 18 130/86 97 07/28/21 19:18 86 16 07/28/21 19:04 85 16 07/28/21 17:55 25 H 07/28/21 17:38 98.3 F 92 20 138/73 96 Intake and Output 07/28/21 07/29/21 07/29/21 22:59 06:59 14:59 Output Total 100 Balance -100 Output: Urine 100 Other: Weight 74.843 kg GENERAL: Fatigue, thin, in minimal distress. HEAD: Atraumatic, normocephalic. EYES: Pupils equal round and reactive to light, extraocular movements intact, sclera anicteric, conjunctiva are normal. ENT:nares patent, oropharynx clear without exudates. Moist mucous membranes. NECK: Normal range of motion, supple without lymphadenopathy or JVD, no thyromegaly LUNGS: Breath sounds decreased bilaterally consistent with underlying COPD. Decreased breath sounds more at the bases consistent with pleural effusions. HEART: Regular rate and rhythm without murmurs, rubs or gallops.S1S2 Normal ABDOMEN: Soft, nontender, normoactive bowel sounds. No guarding, no rebound. No masses appreciated. EXTREMITIES: Normal range of motion, +2 pedal and lower extremities and trace to +1 edema at the upper extremities now. No clubbing or cyanosis. NEUROLOGICAL: Cranial nerves II through XII grossly intact. Normal speech, normal gait. PSYCH: Normal mood, normal affect. SKIN: Warm, Dry, normal turgor, no rashes or lesions noted. Results CBC & Chem 7: 07/29/21 04:05 07/29/21 04:05 Labs: Abnormal Lab Results - Last 24 Hours (Table) 07/28/21 07/28/21 07/28/21 Range/Units 18:09 18:09 18:09 RBC 2.56 L (4.30-5.90) m/uL Hgb 9.4 L (13.0-17.5) gm/dL Hct 28.2 L (39.0-53.0) % MCV 110.1 H (80.0-100.0) fL MCH 36.6 H (25.0-35.0) pg RDW 17.7 H (11.5-15.5) % Plt Count 51 L (150-450) k/uL Lymphocytes # (Manual) 0.65 L (1.0-4.8) k/uL Macrocytosis Marked A APTT 20.4 L (22.0-30.0) sec D-Dimer 0.75 H (<0.60) mg/L FEU Sodium 134 L (137-145) mmol/L Chloride 92 L (98-107) mmol/L Carbon Dioxide 37 H (22-30) mmol/L BUN 37 H (9-20) mg/dL Glucose 110 H (74-99) mg/dL Total Bilirubin 0.1 L (0.2-1.3) mg/dL Total Protein 5.5 L (6.3-8.2) g/dL Albumin 3.2 L (3.5-5.0) g/dL 07/29/21 07/29/21 Range/Units 04:05 04:05 RBC 2.24 L (4.30-5.90) m/uL Hgb 8.3 L (13.0-17.5) gm/dL Hct 24.8 L (39.0-53.0) % MCV 110.6 H (80.0-100.0) fL MCH 36.9 H (25.0-35.0) pg RDW 17.5 H (11.5-15.5) % Plt Count (150-450) k/uL Lymphocytes # (Manual) (1.0-4.8) k/uL Macrocytosis Marked A APTT (22.0-30.0) sec D-Dimer (<0.60) mg/L FEU Sodium 134 L (137-145) mmol/L Chloride 93 L (98-107) mmol/L Carbon Dioxide 37 H (22-30) mmol/L BUN 38 H (9-20) mg/dL Glucose (74-99) mg/dL Total Bilirubin <0.1 L (0.2-1.3) mg/dL Total Protein 4.9 L (6.3-8.2) g/dL Albumin 2.7 L (3.5-5.0) g/dL Chest x-ray: report reviewed CT scan - chest: report reviewed Thrombosis Risk Factor Assmnt - DVT/VTE Prophylaxis DVT/VTE Prophylaxis: Pharmacologic Prophylaxis ordered, Mechanical Prophylaxis ordered - Choose All That Apply Any of the Below Risk Factors Present?: Yes Each Factor Represents 1 point: Serious lung disease incl. pneumonia (< 1month), Swollen legs (current) Each Risk Factor Represents 2 Points: Age 61-74 years Thrombosis Risk Factor Assessment Total Risk Factor Score: 4 Thrombosis Risk Factor Assessment Level: Moderate Risk Assessment and Plan (1) COPD exacerbation Current Visit: No Status: Acute Code(s): J44.1 - CHRONIC OBSTRUCTIVE PULMONARY DISEASE W (ACUTE) EXACERBATION SNOMED Code(s): 416382665 (2) Dyspnea Current Visit: Yes Status: Acute Code(s): R06.00 - DYSPNEA, UNSPECIFIED SNOMED Code(s): 502868525 (3) Pleural effusion Current Visit: Yes Status: Acute Code(s): J90 - PLEURAL EFFUSION, NOT ELSEWHERE CLASSIFIED SNOMED Code(s): 82886253 (4) Compression fracture of L1 lumbar vertebra Current Visit: No Status: Acute Code(s): S32.010A - WEDGE COMPRESSION FRACTURE OF FIRST LUMBAR VERTEBRA, INIT SNOMED Code(s): 374953475 (5) Compression fracture of T6 vertebra Current Visit: No Status: Acute Code(s): S22.050A - WEDGE COMPRESSION FRACTURE OF T5-T6 VERTEBRA, INIT SNOMED Code(s): 040524979 (6) Dehydration Current Visit: No Status: Acute Code(s): E86.0 - DEHYDRATION SNOMED Code(s): 81158286 (7) Edema of both lower extremities due to peripheral venous insufficiency Current Visit: No Status: Acute Code(s): I87.2 - VENOUS INSUFFICIENCY (CHRONIC) (PERIPHERAL) SNOMED Code(s): 41137776019493482 (8) History of nicotine dependence Current Visit: No Status: Acute Code(s): Z87.891 - PERSONAL HISTORY OF NICOTINE DEPENDENCE SNOMED Code(s): 492314363 (9) History of prostate cancer Current Visit: No Status: Acute Code(s): Z85.46 - PERSONAL HISTORY OF MALIGNANT NEOPLASM OF PROSTATE SNOMED Code(s): 773317570 (10) S/P chemotherapy, time since less than 4 weeks Current Visit: No Status: Acute Code(s): Z92.21 - PERSONAL HISTORY OF ANTINEOPLASTIC CHEMOTHERAPY SNOMED Code(s): 275652367 (11) Adenocarcinoma Current Visit: No Status: Chronic Priority: High Code(s): C80.1 - MALIGN ANT (PRIMARY) NEOPLASM, UNSPECIFIED SNOMED Code(s): 991092937 Plan: I will consult pulmonology, Dr. Kyle. We'll consult Dr. Barrientos again about the worsening T6 compression fracture. Continue gentle hydration. Heparin subcutaneous every 12 hours when necessary Continue antibiotics. He will be reevaluated in the next 24 hours.
[2021-07-29] MEDS ORDERED: AZITHROMYCIN 500 MG in SODIUM CHLORIDE 0.9% 250 ML IVPB SCH (09:15)
[2021-07-29] MEDS: SODIUM CHLORIDE 0.9% 1,000 ML IV SCH ×2 (09:50→22:24)
[2021-07-29] MEDS: HEPARIN SODIUM,PORCINE/PF 5,000 UNIT/0.5 ML SYRINGE SQ SCH ×2 (09:51→22:19)
[2021-07-29] MEDS: POTASSIUM CHLORIDE ER 20 MEQ TAB.ER PO SCH (09:51)
--- NOTE | 2021-07-29 10:58 | P.CNOR ---
History of Present Illness - [facility] Consult date: 07/29/21 History of present illness: This patient is a 75-year-old male with a past medical history of COPD, metastatic adenocarcinoma currently following with oncology, who that presented to [facility] emergency department on 07/28/21 with complaints of shortness of breath. Patient was admitted under the care of Dr. Garcia with a consult placed to pulmonology for a bilateral pleural effusions. Orthopedics was consulted due to a progression of his T6 compression fracture found on chest CTA. Patient has known T6 and L1 compression fractures. He has been following with Dr. Luna in the office in regards to this. Patient states his last appointment was [address] Luna. Patient states his back pain has been chronic and there have been no acute changes in his back pain. He states he takes Tylenol and uses lidocaine patches, which controls his pain. He notes no falls or trauma recently. He states he is experiencing mild pain in the region of T6 at this time, although it has been this way for many weeks. Patient states he is not interested in additional treatments for his back at this time, he is more concerned about his breathing. He has declined bracing in the past and he states he again does not want a brace today. He denies pain low back. He denies numbness or tingling of the bilateral lower extremities. He denies bowel or bladder incontinence. There are no additional complaints at this time. Past Medical History Past Medical History: Cancer, GERD/Reflux, Pneumonia Additional Past Medical History / Comment(s): 05/10/20 pericardial effusion with early cardiac tamponade/acute respiratory failure with pericardiocentesis/pneumonia/bilateral leg edema, cancer pericardial sac/chest lymph nodes per pt/spouse-receiving chemotherapy-last time approximately 6 weeks ago/on hold for recent hernia surgery/then URI, past vertigo when first standing/syncope pt states d/t electrolyte disturbance, anemia with transfusions, lung nodules being monitored and thought possibly scarring from previous pneumonia, prostate cancer with surgery, skin cancer with removals, gastritis, hiatal hernia, severe clausterphobia, 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 and has had past falls out of bed, bilateral [place] and tinnitis, past alcoholism per pt but quit drinking 31 plus yrs ago, shingles last week History of Any Multi-Drug Resistant Organisms: None Reported Past Surgical History: Joint Replacement, Prostate Surgery Additional Past Surgical History / Comment(s): 03/12/21 inguinal hernia surgery, 05/18/20 EGD, colonoscopy, robot assisted laparoscopic prostatectomy with bilateral lymph node dissection, skin cancer removals, rt hip replacement Past Anesthesia/Blood Transfusion Reactions: No Reported Reaction Additional Past Anesthesia/Blood Transfusion Reaction / Comm: Claustrophobic. Past Psychological History: No Psychological Hx Reported Additional Psychological History / Comment(s): Pt resides with his spouse and her adult son. Spouse and son are caregivers for patient. Pt unable to ambulate any distance, he is assisted to wheelchair. He has a nebulizer and home oxygen. He also has a pulse oximetry. His spouse/son drive him to [employer]. Smoking Status: Former smoker Past Alcohol Use History: None Reported Additional Past Alcohol Use History / Comment(s): Pt started smoking as a teen and quit 04/2020. Quit alcohol 31 yrs ago- states Hx of heavy alcohol use. Past Drug Use History: None Reported - Past Family History Mother Family Medical History: Cancer Additional Family Medical History / Comment(s): breast cancer, Etoh abuse. Father Family Medical History: COPD, Dementia, Musculoskeletal Disorder, Neurologic Disorder Additional Family Medical History / Comment(s): parkinson's, ETOH abuse Medications and Allergies Home Medications Medication Instructions Recorded Confirmed Type Umeclidinium Brm/Vilanterol Tr 1 puff INHALATION RT-DAILY 03/01/19 07/28/21 History [Anoro Ellipta 62.5-25 Mcg INH] clonazePAM [KlonoPIN] 0.5 mg PO HS 03/01/19 07/28/21 History Albuterol Nebulized [Ventolin 2.5 mg INHALATION RT-QID PRN 05/09/20 07/28/21 History Nebulized] Folic Acid 2 mg PO DAILY 07/13/20 07/28/21 History Multivitamins, Thera [Multivitamin 1 tab PO DAILY 03/07/21 07/28/21 History (formulary)] Pantoprazole [Protonix] 40 mg PO BID 03/07/21 07/28/21 History Albuterol Inhaler [Ventolin Hfa 2 puff INHALATION RT-QID PRN 04/15/21 07/28/21 History Inhaler] Potassium Chloride ER [K-Dur 20] 20 meq PO DAILY 06/29/21 07/28/21 History Acetaminophen Tab [Tylenol] 650 mg PO Q6HR PRN tab 07/04/21 07/28/21 Rx Fluticasone Nasal [place] [Flonase 1 spray EA NOSTRIL BID PRN #1 07/05/21 07/28/21 Rx Nasal [place]] bottle Acetaminophen-Codeine 300-30mg 1 - 2 tab PO Q6H PRN 07/28/21 07/28/21 History [Tylenol w/codeine #3] Doxycycline Hyclate 100 mg PO BID 07/28/21 07/28/21 History Furosemide [Lasix] 40 mg PO BID 07/28/21 07/28/21 History methylPREDNISolone Dose Pack See Taper PO DIRECTED 07/28/21 07/28/21 History [Medrol Dose Pack] Allergies Allergy/AdvReac Type Severity Reaction Status Date / Time Sulfa (Sulfonamide Allergy Unknown Rash/Hives Verified 07/28/21 18:21 Antibiotics) tetracycline Allergy Unknown "Fuzzy Verified 07/28/21 18:21 headed" Physical Examination On examination, the patient is sitting up in bed in no apparent distress. He is alert and oriented 3. His head appears normocephalic and atraumatic. Nasal cannula in place. On inspection of the back, there are no abrasions, lacerations, ecchymosis, skin discoloration. No signs of trauma. No erythema, purulence, signs of infection. There is no pain with palpation of the lumbar spine. Mild discomfort with palpation of the thoracic spine. He has good strength range of motion of the bilateral ankles. Dorsiflexion, plantar flexion, EHL intact and sustained bilaterally. No lower extremity weakness. Sensation is intact of bilateral lower extremities. Calves are soft and nontender to palpation bilaterally. No signs of DVT. Bilateral lower extremities are warm and well-perfused with brisk capillary refill distally. Results Chest CTA 07/28/21: No evidence of pulmonary embolism. Bilateral pleural effusions. Progression of T6 compression fracture compared on exam. L1 compression fracture unchanged. There is 50% anterior wedging L1 vertebral body. There is T6 anterior wedging 50%. - Labs Labs: Abnormal Lab Results - Last 24 Hours (Table) 07/28/21 07/28/21 07/28/21 Range/Units 18:09 18:09 18:09 RBC 2.56 L (4.30-5.90) m/uL Hgb 9.4 L (13.0-17.5) gm/dL Hct 28.2 L (39.0-53.0) % MCV 110.1 H (80.0-100.0) fL MCH 36.6 H (25.0-35.0) pg RDW 17.7 H (11.5-15.5) % Plt Count 51 L (150-450) k/uL Lymphocytes # (Manual) 0.65 L (1.0-4.8) k/uL Macrocytosis Marked A APTT 20.4 L (22.0-30.0) sec D-Dimer 0.75 H (<0.60) mg/L FEU Sodium 134 L (137-145) mmol/L Chloride 92 L (98-107) mmol/L Carbon Dioxide 37 H (22-30) mmol/L BUN 37 H (9-20) mg/dL Glucose 110 H (74-99) mg/dL Total Bilirubin 0.1 L (0.2-1.3) mg/dL Total Protein 5.5 L (6.3-8.2) g/dL Albumin 3.2 L (3.5-5.0) g/dL 07/29/21 07/29/21 Range/Units 04:05 04:05 RBC 2.24 L (4.30-5.90) m/uL Hgb 8.3 L (13.0-17.5) gm/dL Hct 24.8 L (39.0-53.0) % MCV 110.6 H (80.0-100.0) fL MCH 36.9 H (25.0-35.0) pg RDW 17.5 H (11.5-15.5) % Plt Count (150-450) k/uL Lymphocytes # (Manual) (1.0-4.8) k/uL Macrocytosis Marked A APTT (22.0-30.0) sec D-Dimer (<0.60) mg/L FEU Sodium 134 L (137-145) mmol/L Chloride 93 L (98-107) mmol/L Carbon Dioxide 37 H (22-30) mmol/L BUN 38 H (9-20) mg/dL Glucose (74-99) mg/dL Total Bilirubin <0.1 L (0.2-1.3) mg/dL Total Protein 4.9 L (6.3-8.2) g/dL Albumin 2.7 L (3.5-5.0) g/dL H & H 07/28/21 07/29/21 Range/Units 18:09 04:05 Hgb 9.4 L 8.3 L (13.0-17.5) gm/dL Hct 28.2 L 24.8 L (39.0-53.0) % Coagulation 07/28/21 Range/Units 18:09 INR 0.9 (<1.2) Result Diagrams: 07/29/21 04:05 07/29/21 04:05 Assessment and Plan Assessment: T6 wedging compression fracture Chronic L1 wedge compression fracture COPD Metastatic adenocarcinoma Plan: - Discussed the patient Dr. Luna. Patient has had no in acute increases of pain. He is currently happy with his conservative treatment regimen. He is not interested in any additional treatments for his spine at this time. - We did again discuss bracing today. The patient again declines, as he is already short of breath and his pain is relatively well controlled. - Patient is declining bracing, therefore I recommended he avoid strenuous activities. He should avoid excessive bending, twisting, lifting activities. - Medical management per internal medicine, pulmonology, oncology. - We'll follow the patient peripherally. He may follow-up with Dr. Luna on an outpatient basis. Patient states he has an appointment in a few weeks already scheduled.
[2021-07-29 11:58] LABS: Glucose,Whole Blood 124 mg/dL (75-99)
--- NOTE | 2021-07-29 12:04 | P.CNPUL ---
History of Present Illness Consult date: 07/29/21 Requesting physician: Kaveh Garcia Reason for consult: dyspnea, abnormal CXR/CT Chief complaint: Shortness of breath, cough, congestion History of present illness: This is a very pleasant 75-year-old gentleman who follows with Dr. Ortega is his primary care provider. He has a history of metastatic adenocarcinoma of the lungs. He also has a history of chronic obstructive pulmonary disease with an FEV1 value 34% of predicted. He follows with Dr. Nicole in our office for the same. He is on home oxygen at 2.5 L. He has nebulized treatments along with Anoro and albuterol HFA. He is receiving chemotherapy for his lung cancer. He had previously been on immunotherapy with that had been stopped due to suspected worsening shortness of breath. He received chemotherapy again this month. He presented to the emergency room yesterday with a 2 day history of increasing shortness of breath. He was here for a similar presentation last month and was found to have Stenotrophomonas maltophilia in his sputum. Chest x-ray shows increasing lower lobe pneumonia and pleural fluid compared to previous on 07/03/2021. CT angiogram ruled out pulmonary embolism. There is bilateral pleural effusions which appear increase compared to previous. Progression of T6 compression fracture. L1 compression fracture unchanged. White count 5.9. Hemoglobin 8.3. MCV 110.6. Sodium 134. Potassium 4.1. Creatinine 1.02. D- dimer 0.75. Malagon virus not detected. He is seen today in consultation on the regular medical floor. He is currently resting fairly comfortably in bed. Awake and alert in no acute distress. He has a loose productive cough. No fever or chills. No hemoptysis. Maintaining O2 saturations in the mid 90s on 3 L/m per nasal cannula. He has been afebrile. He was initiated on ceftriaxone and azithromycin. Remains on bronchodilators, IV Solu-Medrol. Review of Systems REVIEW OF SYSTEMS: CONSTITUTIONAL: Denies any recent significant weight loss or weight gain. EYES: Denies change in vision. EARS, NOSE, MOUTH, THROAT: Denies headaches, denies sore throat. CARDIOVASCULAR: Denies chest pain, palpitations or syncopal episodes. RESPIRATORY: Positive for shortness of breath, cough, congestion no hemoptysis. GASTROINTESTINAL: Denies change in appetite, denies abdominal pain GENITOURINARY: Denies hematuria, denies infections. MUSKULOSKELETAL: Positive for chronic back pain pain, denies swelling. INTEGUMENTARY: Denies rash, denies eczema. NEUROLOGICAL: Denies recent memory loss, no recent seizure activity. PSYCHIATRIC: Denies anxiety, denies depression. HEMATOLOGIC/LYMPHATIC: Denies anemia, denies enlarged lymph nodes. Past Medical History Past Medical History: Cancer, GERD/Reflux, Pneumonia Additional Past Medical History / Comment(s): 05/10/20 pericardial effusion with early cardiac tamponade/acute respiratory failure with pericardiocentesis/pneumonia/bilateral leg edema, cancer pericardial sac/chest lymph nodes per pt/spouse-receiving chemotherapy-last time approximately 6 weeks ago/on hold for recent hernia surgery/then URI, past vertigo when first standing/syncope pt states d/t electrolyte disturbance, anemia with transfusions, lung nodules being monitored and thought possibly scarring from previous pneumonia, prostate cancer with surgery, skin cancer with removals, gastritis, hiatal hernia, severe clausterphobia, 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 and has had past falls out of bed, bilateral [place] and tinnitis, past alcoholism per pt but quit drinking 31 plus yrs ago, shingles last week History of Any Multi-Drug Resistant Organisms: None Reported Past Surgical History: Joint Replacement, Prostate Surgery Additional Past Surgical History / Comment(s): 03/12/21 inguinal hernia surgery, 05/18/20 EGD, colonoscopy, robot assisted laparoscopic prostatectomy with bilateral lymph node dissection, skin cancer removals, rt hip replacement Past Anesthesia/Blood Transfusion Reactions: No Reported Reaction Additional Past Anesthesia/Blood Transfusion Reaction / Comment(s): Claustrophobic. Past Psychological History: No Psychological Hx Reported Additional Psychological History / Comment(s): Pt resides with his spouse and her adult son. Spouse and son are caregivers for patient. Pt unable to ambulate any distance, he is assisted to wheelchair. He has a nebulizer and home oxygen. He also has a pulse oximetry. His spouse/son drive him to [facility]. Smoking Status: Former smoker Past Alcohol Use History: None Reported Additional Past Alcohol Use History / Comment(s): Pt started smoking as a teen a nd quit 04/2020. Quit alcohol 31 yrs ago- states Hx of heavy alcohol use. Past Drug Use History: None Reported - Past Family History Mother Family Medical History: Cancer Additional Family Medical History / Comment(s): breast cancer, Etoh abuse. Father Family Medical History: COPD, Dementia, Musculoskeletal Disorder, Neurologic Disorder Additional Family Medical History / Comment(s): parkinson's, ETOH abuse Medications and Allergies Home Medications Medication Instructions Recorded Confirmed Type Umeclidinium Brm/Vilanterol Tr 1 puff INHALATION RT-DAILY 03/01/19 07/28/21 History [Anoro Ellipta 62.5-25 Mcg INH] clonazePAM [KlonoPIN] 0.5 mg PO HS 03/01/19 07/28/21 History Albuterol Nebulized [Ventolin 2.5 mg INHALATION RT-QID PRN 05/09/20 07/28/21 History Nebulized] Folic Acid 2 mg PO DAILY 07/13/20 07/28/21 History Multivitamins, Thera [Multivitamin 1 tab PO DAILY 03/07/21 07/28/21 History (formulary)] Pantoprazole [Protonix] 40 mg PO BID 03/07/21 07/28/21 History Albuterol Inhaler [Ventolin Hfa 2 puff INHALATION RT-QID PRN 04/15/21 07/28/21 History Inhaler] Potassium Chloride ER [K-Dur 20] 20 meq PO DAILY 06/29/21 07/28/21 History Acetaminophen Tab [Tylenol] 650 mg PO Q6HR PRN tab 07/04/21 07/28/21 Rx Fluticasone Nasal [place] [Flonase 1 spray EA NOSTRIL BID PRN #1 07/05/21 07/28/21 Rx Nasal [place]] bottle Acetaminophen-Codeine 300-30mg 1 - 2 tab PO Q6H PRN 07/28/21 07/28/21 History [Tylenol w/codeine #3] Doxycycline Hyclate 100 mg PO BID 07/28/21 07/28/21 History Furosemide [Lasix] 40 mg PO BID 07/28/21 07/28/21 History methylPREDNISolone Dose Pack See Taper PO DIRECTED 07/28/21 07/28/21 History [Medrol Dose Pack] Allergies Allergy/AdvReac Type Severity Reaction Status Date / Time Sulfa (Sulfonamide Allergy Unknown Rash/Hives Verified 07/28/21 18:21 Antibiotics) tetracycline Allergy Unknown "Fuzzy Verified 07/28/21 18:21 headed" Physical Exam Vitals: Vital Signs Temp Pulse Pulse Resp BP BP Pulse Ox 07/29/21 08:22 84 07/29/21 08:13 86 07/29/21 08:12 86 07/29/21 08:00 82 79 20 98 07/29/21 07:00 97.9 F 79 20 115/67 99 07/29/21 02:00 97.8 F 84 20 122/77 100 07/28/21 22:52 97.5 F L 99 20 104/74 98 07/28/21 20:53 98.3 F 68 18 130/86 97 07/28/21 19:18 86 16 07/28/21 19:04 85 16 07/28/21 17:55 25 H 07/28/21 17:38 98.3 F 92 20 138/73 96 Intake and Output 07/28/21 07/29/21 07/29/21 22:59 06:59 14:59 Intake Total 120 Output Total 700 Balance -580 Intake: Oral 120 Output: Urine 700 Other: Voiding Method Toilet Urinal Weight 74.843 kg GENERAL EXAM: Alert, very pleasant 75-year-old gentleman, on 3 L nasal cannula, fairly comfortable in no apparent distress. HEAD: Normocephalic. EYES: Normal reaction of pupils, equal size. NOSE: Clear with pink turbinates. THROAT: No erythema or exudates. NECK: No masses, no JVD. CHEST: No chest wall deformity. LUNGS: Equal air entry with bilateral scattered rhonchi, end expiratory wheeze, diminished. CVS: S1 and S2 normal with no audible murmur, regular rhythm. ABDOMEN: No hepatosplenomegaly, normal bowel sounds, no guarding or rigidity. SPINE: No scoliosis or deformity SKIN: No rashes CENTRAL NERVOUS SYSTEM: No focal deficits, tone is normal in all 4 extremities. EXTREMITIES: There is no peripheral edema. No clubbing, no cyanosis. Per ipheral pulses are intact. Results - Laboratory Findings CBC and BMP: 07/29/21 04:05 07/29/21 04:05 PT/INR, D-dimer PT 9.5 sec (9.0-12.0) 07/28/21 18:09 INR 0.9 (<1.2) 07/28/21 18:09 D-Dimer 0.75 mg/L FEU (<0.60) H 07/28/21 18:09 Abnormal lab findings: Abnormal Labs 07/28/21 07/28/21 07/28/21 18:09 18:09 18:09 RBC 2.56 L Hgb 9.4 L Hct 28.2 L MCV 110.1 H MCH 36.6 H RDW 17.7 H Plt Count 51 L Lymphocytes # (Manual) 0.65 L Macrocytosis Marked A APTT 20.4 L D-Dimer 0.75 H Sodium 134 L Chloride 92 L Carbon Dioxide 37 H BUN 37 H Glucose 110 H Total Bilirubin 0.1 L Total Protein 5.5 L Albumin 3.2 L 07/29/21 07/29/21 04:05 04:05 RBC 2.24 L Hgb 8.3 L Hct 24.8 L MCV 110.6 H MCH 36.9 H RDW 17.5 H Plt Count Lymphocytes # (Manual) Macrocytosis Marked A APTT D-Dimer Sodium 134 L Chloride 93 L Carbon Dioxide 37 H BUN 38 H Glucose Total Bilirubin <0.1 L Total Protein 4.9 L Albumin 2.7 L - Diagnostic Findings Chest x-ray: image reviewed CT scan - chest: image reviewed Assessment and Plan Assessment: 1 Acute hypoxemic respiratory failure secondary to an acute exacerbation of COPD with FEV1 value 34% of predicted 2 Metastatic adenocarcinoma of the lungs, receiving chemotherapy 3 Recent admission in June 2021 for COPD exacerbation along with St enotrophomonas maltophilia pulmonary infection 4 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 8 Obstructive sleep apnea, mild, not on CPAP therapy Plan: The patient was seen and evaluated by Dr. Plaza Chest x-ray, CAT scans and labs reviewed Discontinue ceftriaxone and azithromycin Initiate Levaquin Obtain a sputum culture Continue bronchodilators, IV Solu-Medrol Titrate the FiO2 as tolerated We will continue to follow and make further recommendations based on his clinical status I, the cosigning physician, performed a history & physical examination of the patient. Lungs sounds with bilateral scattered rhonchi, end expiratory wheeze, diminished. Maintaining good O2 saturations in the 90s on 3 L/m per nasal cannula. I discussed the assessment and plan of care with my nurse practitioner, Linh Way. I attest to the above consultation as dictated by her. Time with Patient: Greater than 30
[2021-07-29] MEDS: LEVOFLOXACIN 750 MG TAB PO SCH (12:34)
[2021-07-29] MEDS: methylPREDNISolone SOD SUCCI 125 MG/2 ML VIAL IV SCH ×3 (12:34→23:29)
[2021-07-29 12:57] LABS: Eosinophils # (M) 0.06 k/uL (0-0.7); Lymphocytes # (M) 0.71 k/uL (1.0-4.8); Monocytes # (M) 0.59 k/uL (0-1.0); Neutrophils # (M) 4.54 k/uL (1.3-7.7); Neutrophils % (M) 77 %; Nucleated Red Blood Cells 0 /100 WBC (0-0); Total Cells Counted 100
[2021-07-29 12:59] LABS: Poikilocytosis (M) Present
[2021-07-29] MEDS ORDERED: polyethylene glycoL 3350 17 GM POWD.PACK PO STA (14:49)
[2021-07-29 16:13] LABS: Glucose,Whole Blood 126 mg/dL (75-99)
[2021-07-29 20:13] LABS: Glucose,Whole Blood 198 mg/dL (75-99)
[2021-07-29] MEDS: LIDOCAINE 5% PATCH TOPICAL SCH (22:18)
[2021-07-30] MEDS: Acetaminophen-Codeine 300-30mg TAB PO PRN ×2 (03:34→22:07)
[2021-07-30] MEDS: methylPREDNISolone SOD SUCCI 125 MG/2 ML VIAL IV SCH ×3 (05:36→18:01)
[2021-07-30 07:19] LABS: Glucose,Whole Blood 144 mg/dL (75-99)
[2021-07-30] MEDS: POTASSIUM CHLORIDE ER 20 MEQ TAB.ER PO SCH (07:23)
[2021-07-30] MEDS: MULTIVITAMINS, THERA 1 EACH TAB PO SCH (07:23)
[2021-07-30] MEDS: PANTOPRAZOLE 40 MG TABLET PO SCH ×2 (07:23→22:07)
[2021-07-30] MEDS: FUROSEMIDE 40 MG TAB PO SCH ×2 (07:23→22:06)
[2021-07-30] MEDS: HEPARIN SODIUM,PORCINE/PF 5,000 UNIT/0.5 ML SYRINGE SQ SCH ×2 (07:23→22:06)
[2021-07-30] MEDS: FOLIC ACID 1 MG TAB PO SCH (07:23)
[2021-07-30] MEDS: FORMOTEROL FUMARATE 20 MCG/2 ML NEBU INHALATION SCH ×2 (07:35→20:37)
[2021-07-30] MEDS: IPRATROPIUM 0.5 MG/2.5 ML NEBU INHALATION SCH (07:35)
[2021-07-30] MEDS ORDERED: methylPREDNISolone 4 MG TAB PO SCH (09:00)
[2021-07-30] MEDS ORDERED: ALBUTEROL NEBULIZED 2.5 MG/3 ML INHALATION PRN (09:27)
[2021-07-30 09:34] LABS: African American GFR (CKD) 76.2 (60.0-200.0); Anion Gap 4.6 mmol/L (4.00-12.00); BUN/Creat Ratio 28.18 Ratio (12.00-20.00); Calcium 8.8 mg/dL (8.7-10.3); Carbon Dioxide 38.4 mmol/L (21.6-31.8); Non-African American GFR(CKD) 65.8 (60.0-200.0); Potassium 4.6 mmol/L (3.5-5.5)
[2021-07-30 09:35] LABS: Magnesium 1.8 mg/dL (1.5-2.4)
--- NOTE | 2021-07-30 11:02 | P.PN ---
Rafat Dennison is a pleasant white male,with a known history of COPD and smoking. He was found to have pericardial effsusion last year along with bilateral lower extremity edema . The patient had percutaneous pericardial drainage of 05/10/20 with cytology positive for metastatic adenocarcinoma, consistent with lung or upper GI primary. Patient had a prior history of prostate cancer with a radical prostatectomy in 03/12. PSA was normal recently. He had multiple tests including MRI, PET , colonoscopy failing to show other etiology. He is most recently been discontinued on immunotherapy and is been undergoing chemotherapy only. He is currently being followed by and Dr Trejo for the lung cancer, however there is no significant primary tumor found.. He came to the emergency room last night with complaints of increasing shortness of breath over the past 2 days. He denies any current chest pains, pressures. Complains of shortness of breath. He complains of left upper back pain. He denies any nausea or vomiting. He states his appetite has not been good but he forces himself to eat. He has a known T6 compression fracture along the L1 compression fracture. He reports ongoing bipedal edema below the knees. He is not wearing support hose that he was given his last admission. He has oxygen at home but no BiPAP. Currently is resting comfortably in his bed. He feels slightly improved. Vitals are stable this morning with a pulse oximetry 90% on 3 L of O2. Heart rate and blood pressure both normal ranges. Laboratory studies show a macrocytic anemia 8.3 hemoglobin. His BUN is 38 and creatinine 1.02 consistent with dehydration. Total protein and albumin are decreased consistent with mild malnutrition. Chest x-ray emergency room showed increasing lower lobe pneumonia and pleural effusion. CTA showed no pulmonary embolism bilateral pleural effusions. Increased compared to the old exam. Progression of the T6 compression fracture. 07/30/2021: Vital signs remained stable at 3 L of O2 via nasal cannula. Heart rate blood pressure well-controlled. His weight remains same. Laboratory stud ies continue to show elevated BUN and creatinine with a BUN/creatinine ratio 20.18. Glucose Values reviewed D Solu-Medrol use. Orthopedic surgery has seen the patient regarding his worsening T6 compression fracture. They recommended bracing, however the patient is refusing at this time. I discussed limiting any significant strenuous activities including bending stooping and twisting to minimal if at all Pulmonology have seen the patient and change his antibiotics to Levaquin. We will also order sputum culture, which is pending. He was known to have a positive culture of stenotrophomonas maltophilia was last visit. Today the patient feels about the same. He denies any chest pains or pressures. Shortness of breath is about the same. No nausea or vomiting. No BM in 2 days. To get up and walk around more. Objective - Vital Signs Vital signs: Vital Signs Temp 98.1 F 07/30/21 07:00 Pulse 88 07/30/21 08:02 Resp 18 07/30/21 07:00 BP 123/72 07/30/21 07:00 Pulse Ox 96 07/30/21 07:00 Intake & Output 07/29/21 07/30/21 07/30/21 18:59 06:59 18:59 Intake Total 360 Output Total 1000 250 Balance -640 -250 Intake: Oral 360 Output: Urine 1000 250 Other: Voiding Method Toilet Toilet Toilet Urinal Urinal Urinal # Voids 1 1 - Exam GENERAL: Fatigue, thin, in minimal distress. NECK: Normal range of motion, supple without lymphadenopathy or JVD, no thyromegaly LUNGS: Breath sounds decreased bilaterally consistent with underlying COPD. Decreased breath sounds more at the bases consistent with pleural effusions. Minimal if any improvement from yesterday HEART: Regular rate and rhythm without murmurs, rubs or gallops.S1S2 Normal ABDOMEN: Soft, nontender, normoactive bowel sounds. No guarding, no rebound. No masses appreciated. EXTREMITIES: Normal range of motion, +2 pedal and lower extremities and trace to +1 edema at the upper extremities now. No clubbing or cyanosis. NEUROLOGICAL: Cranial nerves II through XII grossly intact. Normal speech, normal gait. PSYCH: Normal mood, normal affect. SKIN: Warm, Dry, normal turgor, no rashes or lesions noted. - Labs CBC & Chem 7: 07/29/21 04:05 07/30/21 03:59 Labs: Abnormal Lab Results - Last 24 Hours (Table) 07/29/21 07/29/21 07/29/21 Range/Units 04:05 11:53 16:11 Plt Count 43 L (150-450) k/uL Lymphocytes # (Manual) 0.71 L (1.0-4.8) k/uL Chloride (96-109) mmol/L Carbon Dioxide (21.6-31.8) mmol/L BUN (9.0-27.0) mg/dL BUN/Creatinine Ratio (12.00-20.00) Ratio Glucose (70-110) mg/dL POC Glucose (mg/dL) 124 H 126 H (75-99) mg/dL 07/29/21 07/30/21 07/30/21 Range/Units 20:11 03:59 07:10 Plt Count (150-450) k/uL Lymphocytes # (Manual) (1.0-4.8) k/uL Chloride 94 L (96-109) mmol/L Carbon Dioxide 38.4 H (21.6-31.8) mmol/L BUN 31.0 H (9.0-27.0) mg/dL BUN/Creatinine Ratio 28.18 H (12.00-20.00) Ratio Glucose 134 H (70-110) mg/dL POC Glucose (mg/dL) 198 H 144 H (75-99) mg/dL Microbiology - Last 24 Hours (Table) 07/29/21 Unknown Gram Stain - Preliminary Sputum Sputum Culture - Preliminary 07/28/21 18:09 Blood Culture - Preliminary Blood No Growth after 24 hours Assessment and Plan (1) Acute respiratory failure with hypoxia Current Visit: Yes Status: Acute Code(s): J96.01 - ACUTE RESPIRATORY FAILURE WITH HYPOXIA SNOMED Code(s): 21507674 (2) COPD exacerbation Current Visit: No Status: Acute Code(s): J44.1 - CHRONIC OBSTRUCTIVE PULMONARY DISEASE W (ACUTE) EXACERBATION SNOMED Code(s): 956539628 (3) Dyspnea Current Visit: Yes Status: Acute Code(s): R06.00 - DYSPNEA, UNSPECIFIED SNOMED Code(s): 093316803 (4) Pleural effusion Current Visit: Yes Status: Acute Code(s): J90 - PLEURAL EFFUSION, NOT ELSEWHERE CLASSIFIED SNOMED Code(s): 49649636 (5) Compression fracture of T6 vertebra Current Visit: No Status: Acute Code(s): S22.050A - WEDGE COMPRESSION FRACTURE OF T5-T6 VERTEBRA, INIT SNOMED Code(s): 013604143 (6) Compression fracture of L1 lumbar vertebra Current Visit: No Status: Chronic Code(s): S32.010A - WEDGE COMPRESSION FRACTURE OF FIRST LUMBAR VERTEBRA, INIT SNOMED Code(s): 781750085 (7) Dehydration Current Visit: No Status: Acute Code(s): E86.0 - DEHYDRATION SNOMED Code(s): 26674868 (8) Edema of both lower extremities due to peripheral venous insufficiency Current Visit: No Status: Acute Code(s): I87.2 - VENOUS INSUFFICIENCY (CHRONIC) (PERIPHERAL) SNOMED Code(s): 24512736616775299 (9) History of nicotine dependence Current Visit: No Status: Acute Code(s): Z87.891 - PERSONAL HISTORY OF NICOTINE DEPENDENCE SNOMED Code(s): 242754425 (10) History of prostate cancer Current Visit: No Status: Acute Code(s): Z85.46 - PERSONAL HISTORY OF MALIGNANT NEOPLASM OF PROSTATE SNOMED Code(s): 982700154 (11) S/P chemotherapy, time since less than 4 weeks Current Visit: No Status: Acute Code(s): Z92.21 - PERSONAL HISTORY OF ANTINEOPLASTIC CHEMOTHERAPY SNOMED Code(s): 806985847 (12) Adenocarcinoma Current Visit: No Status: Chronic Priority: High Code(s): C80.1 - MALIGNANT (PRIMARY) NEOPLASM, UNSPECIFIED SNOMED Code(s): 551622131 (13) Mild protein-calorie malnutrition Current Visit: Yes Status: Acute Code(s): E44.1 - MILD PROTEIN-CALORIE MALNUTRITION SNOMED Code(s): 289142442 Plan: wait on further recommendations from pulmonology Continue gentle hydration. Continue current medications as ordered. Head gentle stool softener. Recheck labs in a.m. He will be reevaluated in the next 24 hours.
[2021-07-30] MEDS: IPRATROPIUM-ALBUTEROL 3 ML NEB INHALATION SCH ×3 (11:09→20:36)
[2021-07-30 11:13] LABS: Basophils # (A) 0.01 X 10*3/uL (0.00-0.10); Basophils % (A) 0.2 %; Eosinophils # (A) 0 X 10*3/uL (0.04-0.35); Eosinophils % (A) 0 %; HCT 24.6 % (39.6-50.0); HGB 7.7 g/dL (13.0-17.0); Lymphocytes # (A) 0.25 X 10*3/uL (0.90-5.00); Lymphocytes % (A) 4.8 %; MCH 34.5 pg (27.0-32.0); MCHC 31.3 g/dL (32.0-37.0); MCV 110.3 fL (80.0-97.0); Macrocytosis (M) 2+; Mean Platelet Volume 12.3 fL (9.5-12.2); Monocytes % (A) 7.7 %; Neutrophils # (A) 4.45 X 10*3/uL (1.80-7.70); Neutrophils % (A) 85.9 %; Platelet Count 40 X 10*3/uL (140-440); RBC 2.23 X 10*6/uL (4.40-5.60); RDW 16.9 % (11.5-14.5); WBC 5.18 X 10*3/uL (4.50-10.00)
[2021-07-30] MEDS: DOCUSATE 100 MG CAP PO SCH ×2 (11:46→22:07)
--- NOTE | 2021-07-30 12:09 | P.PN ---
Subjective Progress Note Date: 07/30/21 This is a very pleasant 75-year-old gentleman who follows with Dr. Ortega is his primary care provider. He has a history of metastatic adenocarcinoma of the lungs. He also has a history of chronic obstructive pulmonary disease with an FEV1 value 34% of predicted. He follows with Dr. Nicole in our office for the same. He is on home oxygen at 2.5 L. He has nebulized treatments along with Anoro and albuterol HFA. He is receiving chemotherapy for his lung cancer. He had previously been on immunotherapy with that had been stopped due to suspected worsening shortness of breath. He received chemotherapy again this month. He presented to the emergency room yesterday with a 2 day history of increasing shortness of breath. He was here for a similar presentation last month and was found to have Stenotrophomonas maltophilia in his sputum. Chest x-ray shows increasing lower lobe pneumonia and pleural fluid compared to previous on 07/03/2021. CT angiogram ruled out pulmonary embolism. There is bilateral pleural effusions which appear increase compared to previous. Progression of T6 compression fracture. L1 compression fracture unchanged. White count 5.9. Hemoglobin 8.3. MCV 110.6. Sodium 134. Potassium 4.1. Creatinine 1.02. D- dimer 0.75. Malagon virus not detected. He is seen today in consultation on the regular medical floor. He is currently resting fairly comfortably in bed. Awake and alert in no acute distress. He has a loose productive cough. No fever or chills. No hemoptysis. Maintaining O2 saturations in the mid 90s on 3 L/m per nasal cannula. He has been afebrile. He was initiated on ceftriaxone and azithromycin. Remains on bronchodilators, IV Solu-Medrol. The patient is seen today 07/30/2021 in follow-up on the regular medical floor. He is currently sitting up in a chair at the bedside. Awake and alert in no acute distress. Breathing a bit easier today compared to yesterday. Still not quite back to his baseline. He is maintaining O2 saturations in the low 90s on 3 L/m per nasal cannula. He remains on DuoNeb inhalations, Pulmicort and Perfor omist inhalations, IV same Medrol. Antibiotics in the form of Levaquin. 0.9 normal saline at 75 ML's per hour. Heparin for DVT prophylaxis. Count 5.8. Hemoglobin 7.7. Platelet count 40,000. Sodium 137. Potassium 4.6. Creatinine 1.1. Glucose 134. Objective - Vital Signs Vital signs: Vital Signs Temp 98.1 F 07/30/21 07:00 Pulse 88 07/30/21 11:20 Resp 18 07/30/21 07:00 BP 123/72 07/30/21 07:00 Pulse Ox 96 07/30/21 07:00 Intake & Output 07/29/21 07/30/21 07/30/21 18:59 06:59 18:59 Intake Total 360 Output Total 1000 250 Balance -640 -250 Intake: Oral 360 Output: Urine 1000 250 Other: Voiding Method Toilet Toilet Toilet Urinal Urinal Urinal # Voids 1 1 - Exam GENERAL EXAM: Alert, very pleasant 75-year-old gentleman, on 3 L nasal cannula, fairly comfortable in no apparent distress. HEAD: Normocephalic. EYES: Normal reaction of pupils, equal size. NOSE: Clear with pink turbinates. THROAT: No erythema or exudates. NECK: No masses, no JVD. CHEST: No chest wall deformity. LUNGS: Equal air entry with bilateral scattered rhonchi, end expiratory wheeze, diminished. CVS: S1 and S2 normal with no audible murmur, regular rhythm. ABDOMEN: No hepatosplenomegaly, normal bowel sounds, no guarding or rigidity. SPINE: No scoliosis or deformity SKIN: No rashes CENTRAL NERVOUS SYSTEM: No focal deficits, tone is normal in all 4 extremities. EXTREMITIES: There is no peripheral edema. No clubbing, no cyanosis. Pe ripheral pulses are intact. - Labs CBC & Chem 7: 07/30/21 03:59 07/30/21 03:59 Labs: Abnormal Lab Results - Last 24 Hours (Table) 07/29/21 07/29/21 07/29/21 Range/Units 04:05 11:53 16:11 RBC (4.40-5.60) X 10*6/uL Hgb (13.0-17.0) g/dL Hct (39.6-50.0) % MCV (80.0-97.0) fL MCH (27.0-32.0) pg MCHC (32.0-37.0) g/dL RDW (11.5-14.5) % Plt Count 43 L (150-450) k/uL Plt Count Comment MPV (9.5-12.2) fL Immature Gran # (0.00-0.04) X 10*3/uL Lymphocytes # (0.90-5.00) X 10*3/uL Lymphocytes # (Manual) 0.71 L (1.0-4.8) k/uL Eosinophils # (0.04-0.35) X 10*3/uL Immature Plt Fraction (1.1-6.1) % Chloride (96-109) mmol/L Carbon Dioxide (21.6-31.8) mmol/L BUN (9.0-27.0) mg/dL BUN/Creatinine Ratio (12.00-20.00) Ratio Glucose (70-110) mg/dL POC Glucose (mg/dL) 124 H 126 H (75-99) mg/dL 07/29/21 07/30/21 07/30/21 Range/Units 20:11 03:59 03:59 RBC 2.23 L (4.40-5.60) X 10*6/uL Hgb 7.7 L (13.0-17.0) g/dL Hct 24.6 L (39.6-50.0) % MCV 110.3 H (80.0-97.0) fL MCH 34.5 H (27.0-32.0) pg MCHC 31.3 L (32.0-37.0) g/dL RDW 16.9 H (11.5-14.5) % Plt Count 40 L (150-450) k/uL Plt Count Comment A MPV 12.3 H (9.5-12.2) fL Immature Gran # 0.07 H (0.00-0.04) X 10*3/uL Lymphocytes # 0.25 L (0.90-5.00) X 10*3/uL Lymphocytes # (Manual) (1.0-4.8) k/uL Eosinophils # 0 L (0.04-0.35) X 10*3/uL Immature Plt Fraction 11.8 H (1.1-6.1) % Chloride 94 L (96-109) mmol/L Carbon Dioxide 38.4 H (21.6-31.8) mmol/L BUN 31.0 H (9.0-27.0) mg/dL BUN/Creatinine Ratio 28.18 H (12.00-20.00) Ratio Glucose 134 H (70-110) mg/dL POC Glucose (mg/dL) 198 H (75-99) mg/dL 07/30/21 Range/Units 07:10 RBC (4.40-5.60) X 10*6/uL Hgb (13.0-17.0) g/dL Hct (39.6-50.0) % MCV (80.0-97.0) fL MCH (27.0-32.0) pg MCHC (32.0-37.0) g/dL RDW (11.5-14.5) % Plt Count (150-450) k/uL Plt Count Comment MPV (9.5-12.2) fL Immature Gran # (0.00-0.04) X 10*3/uL Lymphocytes # (0.90-5.00) X 10*3/uL Lymphocytes # (Manual) (1.0-4.8) k/uL Eosinophils # (0.04-0.35) X 10*3/uL Immature Plt Fraction (1.1-6.1) % Chloride (96-109) mmol/L Carbon Dioxide (21.6-31.8) mmol/L BUN (9.0-27.0) mg/dL BUN/Creatinine Ratio (12.00-20.00) Ratio Glucose (70-110) mg/dL POC Glucose (mg/dL) 144 H (75-99) mg/dL Microbiology - Last 24 Hours (Table) 07/29/21 Unknown Gram Stain - Preliminary Sputum Sputum Culture - Preliminary 07/28/21 18:09 Blood Culture - Preliminary Blood No Growth after 24 hours Assessment and Plan Assessment: 1 Acute hypoxemic respiratory failure secondary to an acute exacerbation of COPD with FEV1 value 34% of predicted 2 Metastatic adenocarcinoma of the lungs, receiving chemotherapy 3 Recent admission in June 2021 for COPD exacerbation along with Stenotrophomonas maltophilia pulmonary infection 4 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 8 Obstructive sleep apnea, mild, not on CPAP therapy Plan: The patient was seen and evaluated by Dr. Basha Continue bronchodilators, IV Solu-Medrol and Levaquin Titrate the FiO2 as tolerated Decrease IV fluids to KVO We will continue to follow I, the cosigning physician, performed a history & physical examination of the patient. Lungs sounds with bilateral scattered rhonchi, end expiratory wheeze, diminished. Maintaining good O2 saturations in the 90s on 3 L/m per nasal cannula. I discussed the assessment and plan of care with my nurse practition er, Linh Way. I attest to the above note as dictated by her.
[2021-07-30 12:19] LABS: Glucose,Whole Blood 176 mg/dL (75-99)
[2021-07-30] MEDS: SODIUM CHLORIDE 0.9% 1,000 ML IV SCH (13:44)
[2021-07-30] MEDS: LEVOFLOXACIN 750 MG TAB PO SCH (14:30)
[2021-07-30 17:32] LABS: Glucose,Whole Blood 139 mg/dL (75-99)
[2021-07-30] MEDS: BUDESONIDE 1 MG/2 ML NEBU INHALATION SCH (20:36)
[2021-07-30 21:29] LABS: Glucose,Whole Blood 159 mg/dL (75-99)
[2021-07-30] MEDS: LIDOCAINE 5% PATCH TOPICAL SCH (22:04)
[2021-07-30] MEDS: clonazePAM 0.5 MG TAB PO SCH (22:07)
[2021-07-31] MEDS: methylPREDNISolone SOD SUCCI 125 MG/2 ML VIAL IV SCH ×4 (00:01→17:05)
[2021-07-31] MEDS: SODIUM CHLORIDE 0.9% 1,000 ML IV SCH (00:04)
[2021-07-31] MEDS: Acetaminophen-Codeine 300-30mg TAB PO PRN ×2 (05:08→21:56)
[2021-07-31 07:02] LABS: Glucose,Whole Blood 146 mg/dL (75-99)
[2021-07-31] MEDS ORDERED: methylPREDNISolone 4 MG TAB PO SCH (07:30)
[2021-07-31] MEDS: BUDESONIDE 1 MG/2 ML NEBU INHALATION SCH ×2 (07:46→18:54)
[2021-07-31] MEDS: FORMOTEROL FUMARATE 20 MCG/2 ML NEBU INHALATION SCH ×2 (07:46→18:54)
[2021-07-31] MEDS: IPRATROPIUM-ALBUTEROL 3 ML NEB INHALATION SCH ×4 (07:46→18:54)
[2021-07-31] MEDS: HEPARIN SODIUM,PORCINE/PF 5,000 UNIT/0.5 ML SYRINGE SQ SCH ×2 (07:52→21:14)
[2021-07-31] MEDS: FOLIC ACID 1 MG TAB PO SCH (07:52)
[2021-07-31] MEDS: PANTOPRAZOLE 40 MG TABLET PO SCH ×2 (07:52→21:14)
[2021-07-31] MEDS: MULTIVITAMINS, THERA 1 EACH TAB PO SCH (07:52)
[2021-07-31] MEDS: POTASSIUM CHLORIDE ER 20 MEQ TAB.ER PO SCH (07:52)
[2021-07-31] MEDS: DOCUSATE 100 MG CAP PO SCH ×2 (07:52→21:14)
[2021-07-31] MEDS: FUROSEMIDE 40 MG TAB PO SCH ×2 (07:52→21:14)
--- NOTE | 2021-07-31 09:35 | P.CRDCN ---
History of Present Illness Consult date: 07/31/21 History of present illness: HISTORY OF PRESENT ILLNESS: This is a 75-year-old male with a past medical history significant for COPD, stage IV lung cancer with last treatment approximately 2 weeks ago per patient, and malignant pericardial effusion with drainage. Patient does not follow with a college intern. We have been asked to see the patient in consultation for nonsustained ventricular tachycardia. Patient examined at the bedside. Patient presented to the hospital with shortness of breath and is being treated for COPD exacerbation. Patient had a 10 beat run of nonsustained ventricular tachycardia yesterday. Patient states he was asymptomatic at the time. He currently denies chest pain or pressure. He denies palpitations. Denies dizziness or lightheadedness. EKG reveals sinus mechanism with no signs of acute ischemia Chest xray there is increasing lower lobe pneumonia and pleural fluid compared to exam. No obvious heart failure. Laboratory data: WBC 5.18. Hemoglobin 7.7. Platelet count 40. Sodium 137. Potassium 4.6. BUN 31. Creatinine 1.1. Magnesium 1.8. Troponin negative 1. ProBNP 626. Current home cardiac medications include Lasix 40 mg twice a day Most recent echocardiogram obtained in November 2020 revealed ejection fraction 55% REVIEW OF SYSTEMS: At the time of my exam: CONSTITUTIONAL: Denies fever or chills. HEENT: Denies blurred vision, vision changes, or eye pain. Denies hemoptysis CARDIOVASCULAR: Denies chest pain. Denies orthopnea. Denies PND. Denies palpitat ions RESPIRATORY: Denies shortness of breath. GASTROINTESTINAL: Denies abdominal pain. Denies nausea or vomiting. HEMATOLOGIC: Denies bleeding disorders. GENITOURINARY: Denies any blood in urine. SKIN: Denies pruitis. Denies rash. PHYSICAL EXAM: VITAL SIGNS: Reviewed. GENERAL: Well-developed in no acute distress. HEENT: Head is normocephalic. Pupils are equal, round. Sclerae anicteric. Mucous membranes of the mouth are moist. Neck supple. No JVD or thyromegaly LUNGS: Respirations even and unlabored. Lungs diminished with rhonchi and expiratory wheezing HEART: Regular rate and rhythm. S1 and S2 heard. ABDOMEN: Soft. Nondistended. Nontender. EXTREMITIES: Normal range of motion. No clubbing or cyanosis. Peripheral pulses intact. No lower extremity edema NEUROLOGIC: Awake and alert. Oriented x 3. ASSESSMENT: Shortness of breath Acute exacerbation of COPD Nonsustained ventricular tachycardia Stage IV lung cancer on chemotherapy History of prostatectomy History of malignant pericardial effusion with drainage PLAN: Continue home cardiac medications Continue telemetry monitoring Continue to monitor electrolytes Obtain 2-D echo to assess cardiac structure and function Add Toprol 25mg daily Further recommendations pending patient course Nurse practitioner note has been reviewed by physician. Signing provider agrees with the documented findings, assessment, and plan of care. Past Medical History Past Medical History: Cancer, GERD/Reflux, Pneumonia Additional Past Medical History / Comment(s): 05/10/20 pericardial effusion with early cardiac tamponade/acute respiratory failure with pericardiocentesis/pneumonia/bilateral leg edema, cancer pericardial sac/chest lymph nodes per pt/spouse-receiving chemotherapy-last time approximately 6 weeks ago/on hold for recent hernia surgery/then URI, past vertigo when first s tanding/syncope pt states d/t electrolyte disturbance, anemia with transfusions, lung nodules being monitored and thought possibly scarring from previous pneumonia, prostate cancer with surgery, skin cancer with removals, gastritis, hiatal hernia, severe clausterphobia, 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 and has had past falls out of bed, bilateral V[place]ETIE IRA and tinnitis, past alcoholism per pt but quit drinking 31 plus yrs ago, shingles last week History of Any Multi-Drug Resistant Organisms: None Reported Past Surgical History: Joint Replacement, Prostate Surgery Additional Past Surgical History / Comment(s): 03/12/21 inguinal hernia surgery, 05/18/20 EGD, colonoscopy, robot assisted laparoscopic prostatectomy with lilly ateral lymph node dissection, skin cancer removals, rt hip replacement Past Anesthesia/Blood Transfusion Reactions: No Reported Reaction Additional Past Anesthesia/Blood Transfusion Reaction / Comment(s): Claustrophobic. Past Psychological History: No Psychological Hx Reported Additional Psychological History / Comment(s): Pt resides with his spouse and her adult son. Spouse and son are caregivers for patient. Pt unable to ambulate any distance, he is assisted to wheelchair. He has a nebulizer and home oxygen. He also has a pulse oximetry. His spouse/son drive him to [employer]. Smoking Status: Former smoker Past Alcohol Use History: None Reported Additional Past Alcohol Use History / Comment(s): Pt started smoking as a teen and quit 04/2020. Quit alcohol 31 yrs ago- states Hx of heavy alcohol use. Past Drug Use History: None Reported - Past Family History Mother Family Medical History: Cancer Additional Family Medical History / Comment(s): breast cancer, Etoh abuse. Father Family Medical History: COPD, Dementia, Musculoskeletal Disorder, Neurologic Disorder Additional Family Medical History / Comment(s): parkinson's, ETOH abuse Medications and Allergies Home Medications Medication Instructions Recorded Confirmed Type Umeclidinium Brm/Vilanterol Tr 1 puff INHALATION RT-DAILY 03/01/19 07/28/21 History [Anoro Ellipta 62.5-25 Mcg INH] clonazePAM [KlonoPIN] 0.5 mg PO HS 03/01/19 07/28/21 History Albuterol Nebulized [Ventolin 2.5 mg INHALATION RT-QID PRN 05/09/20 07/28/21 History Nebulized] Folic Acid 2 mg PO DAILY 07/13/20 07/28/21 History Multivitamins, Thera [Multivitamin 1 tab PO DAILY 03/07/21 07/28/21 History (formulary)] Pantoprazole [Protonix] 40 mg PO BID 03/07/21 07/28/21 History Albuterol Inhaler [Ventolin Hfa 2 puff INHALATION RT-QID PRN 04/15/21 07/28/21 History Inhaler] Potassium Chloride ER [K-Dur 20] 20 meq PO DAILY 06/29/21 07/28/21 History Acetaminophen Tab [Tylenol] 650 mg PO Q6HR PRN tab 07/04/21 07/28/21 Rx Fluticasone Nasal [place] [Flonase 1 spray EA NOSTRIL BID PRN #1 07/05/21 07/28/21 Rx Nasal [place]] bottle Acetaminophen-Codeine 300-30mg 1 - 2 tab PO Q6H PRN 07/28/21 07/28/21 History [Tylenol w/codeine #3] Doxycycline Hyclate 100 mg PO BID 07/28/21 07/28/21 History Furosemide [Lasix] 40 mg PO BID 07/28/21 07/28/21 History methylPREDNISolone Dose Pack See Taper PO DIRECTED 07/28/21 07/28/21 History [Medrol Dose Pack] Allergies Allergy/AdvReac Type Severity Reaction Status Date / Time Sulfa (Sulfonamide Allergy Unknown Rash/Hives Verified 07/28/21 18:21 Antibiotics) tetracycline Allergy Unknown "Fuzzy Verified 07/28/21 18:21 headed" Physical Exam Vitals: Vital Signs Temp Pulse Pulse Resp BP Pulse Ox 07/31/21 07:00 97.6 F 76 18 120/73 97 07/31/21 01:57 88 19 07/31/21 01:23 98.3 F 83 18 122/63 96 07/30/21 21:02 84 07/30/21 20:53 84 07/30/21 20:37 84 98 07/30/21 20:04 97.5 F L 88 19 140/73 97 07/30/21 20:00 88 19 07/30/21 14:58 98.2 F 83 18 118/72 98 07/30/21 14:57 88 07/30/21 14:45 84 07/30/21 11:20 88 07/30/21 11:09 88 07/30/21 08:02 88 07/30/21 07:50 88 07/30/21 07:49 88 Intake and Output 07/30/21 07/31/21 07/31/21 22:59 06:59 14:59 Output Total 600 400 Balance -600 -400 Output: Urine 600 400 Other: Voiding Method Toilet Toilet Urinal Urinal # Voids 2 Results 07/30/21 03:59 07/30/21 03:59 CBC 07/30/21 Range/Units 03:59 WBC 5.18 (4.50-10.00) X 10*3/uL RBC 2.23 L (4.40-5.60) X 10*6/uL Hgb 7.7 L (13.0-17.0) g/dL Hct 24.6 L (39.6-50.0) % Plt Count 40 L (140-440) X 10*3/uL Comprehensive Metabolic Panel 07/30/21 Range/Units 03:59 Sodium 137 (135-145) mmol/L Potassium 4.6 (3.5-5.5) mmol/L Chloride 94 L (96-109) mmol/L Carbon Dioxide 38.4 H (21.6-31.8) mmol/L BUN 31.0 H (9.0-27.0) mg/dL Creatinine 1.1 (0.6-1.5) mg/dL Glucose 134 H (70-110) mg/dL Calcium 8.8 (8.7-10.3) mg/dL Current Medications Generic Name Dose Route Start Last Admin Trade Name Freq PRN Reason Stop Dose Admin Acetaminophen 650 mg 07/28/21 23:40 Acetaminophen Tab 325 Mg Tab PO Q6HR PRN Mild Pain or Fever > 100.5 Acetaminophen/Codeine Phosphate 1 - 2 each 07/28/21 23:40 07/31/21 05:08 Acetaminophen-Codeine 300-30mg Tab PO 1 each Q6H PRN Administration Pain Albuterol Sulfate 2.5 mg 07/30/21 09:27 Albuterol Nebulized 2.5 Mg/3 Ml INHALATION RT-Q2H PRN Shortness Of Breath Albuterol/Ipratropium 3 ml 07/30/21 12:00 07/30/21 20:36 Ipratropium-Albuterol 3 Ml Neb INHALATION 3 ml RT-QID RUPERTO Administration Budesonide 1 mg 07/30/21 20:00 07/30/21 20:36 Budesonide 1 Mg/2 Ml Nebu INHALATION 1 mg RT-BID RUPERTO Administration Clonazepam 0.5 mg 07/29/21 00:45 07/30/21 22:07 Clonazepam 0.5 Mg Tab PO 0.5 mg HS RUPERTO Administration Docusate Sodium 100 mg 07/30/21 11:15 07/30/21 22:07 Docusate 100 Mg Cap PO 100 mg BID RUPERTO Administration Fluticasone Propionate 1 spray 07/29/21 09:00 Fluticasone 50mcg/[place] Nasal 16gm EA NOSTRIL BID PRN Congestion Folic Acid 2 mg 07/29/21 09:00 07/30/21 07:23 Folic Acid 1 Mg Tab PO 2 mg DAILY RUPERTO Administration Formoterol Fumarate 20 mcg 07/29/21 08:00 07/30/21 20:37 Formoterol Fumarate 20 Mcg/2 Ml Nebu INHALATION 20 mcg RT-BID RUPERTO Administration Furosemide 40 mg 07/29/21 09:00 07/30/21 22:06 Furosemide 40 Mg Tab PO 40 mg BID RUPERTO Administration Heparin Sodium (Porcine) 5,000 unit 07/29/21 09:15 07/30/21 22:06 Heparin Sodium,Porcine/Pf 5,000 Unit/0.5 Ml Syringe SQ 5,000 unit Q12HR RUPERTO Administration Sodium Chloride 1,000 mls @ 20 mls/hr 07/29/21 09:15 07/31/21 00:04 Saline 0.9% IV 20 mls/hr .Q24H RUPERTO Administration Levofloxacin 750 mg 07/29/21 13:00 07/30/21 14:30 Levofloxacin 750 Mg Tab PO 750 mg DAILY@1300 RUPERTO Administration Lidocaine 1 patch 07/29/21 21:00 07/30/21 22:04 Lidocaine 5% Patch TOPICAL 1 patch HS RUPERTO Administration Protocol Methylprednisolone Sodium Succinate 60 mg 07/29/21 12:00 07/31/21 05:09 Methylprednisolone Sod Succi 125 Mg/2 Ml Vial IV 60 mg Q6HR RUPERTO Administration Multivitamins 1 each 07/29/21 09:00 07/30/21 07:23 Multivitamins, Thera 1 Each Tab PO 1 each DAILY RUPERTO Administration Pantoprazole Sodium 40 mg 07/29/21 09:00 07/30/21 22:07 Pantoprazole 40 Mg Tablet PO 40 mg BID RUPERTO Administration Potassium Chloride 20 meq 07/29/21 09:00 07/30/21 07:23 Potassium Chloride Er 20 Meq Tab.Er PO 20 meq DAILY RUPERTO Administration Intake and Output 07/30/21 07/31/21 07/31/21 22:59 06:59 14:59 Output Total 600 400 Balance -600 -400 Output: Urine 600 400 Other: Voiding Method Toilet Toilet Urinal Urinal # Voids 2 07/30/21 03:59 07/30/21 03:59
[2021-07-31] MEDS ORDERED: CEFEPIME 2 GM in SODIUM CHLORIDE 0.9% 100 ML IVPB ONE (10:45)
[2021-07-31] MEDS: METOPROLOL SUCCINATE (ER) 25 MG TAB.ER.24H PO SCH (11:01)
[2021-07-31 11:55] LABS: Glucose,Whole Blood 159 mg/dL (75-99)
--- NOTE | 2021-07-31 11:59 | P.PN ---
Subjective Progress Note Date: 07/31/21 This is a very pleasant 75-year-old gentleman who follows with Dr. Ortega is his primary care provider. He has a history of metastatic adenocarcinoma of the lungs. He also has a history of chronic obstructive pulmonary disease with an FEV1 value 34% of predicted. He follows with Dr. Nicole in our office for the same. He is on home oxygen at 2.5 L. He has nebulized treatments along with Anoro and albuterol HFA. He is receiving chemotherapy for his lung cancer. He had previously been on immunotherapy with that had been stopped due to suspected worsening shortness of breath. He received chemotherapy again this month. He presented to the emergency room yesterday with a 2 day history of increasing shortness of breath. He was here for a similar presentation last month and was found to have Stenotrophomonas maltophilia in his sputum. Chest x-ray shows increasing lower lobe pneumonia and pleural fluid compared to previous on 07/03/2021. CT angiogram ruled out pulmonary embolism. There is bilateral pleural effusions which appear increase compared to previous. Progression of T6 compression fracture. L1 compression fracture unchanged. White count 5.9. Hemoglobin 8.3. MCV 110.6. Sodium 134. Potassium 4.1. Creatinine 1.02. D- dimer 0.75. Malagon virus not detected. He is seen today in consultation on the regular medical floor. He is currently resting fairly comfortably in bed. Awake and alert in no acute distress. He has a loose productive cough. No fever or chills. No hemoptysis. Maintaining O2 saturations in the mid 90s on 3 L/m per nasal cannula. He has been afebrile. He was initiated on ceftriaxone and azithromycin. Remains on bronchodilators, IV Solu-Medrol. The patient is seen today 07/30/2021 in follow-up on the regular medical floor. He is currently sitting up in a chair at the bedside. Awake and alert in no acute distress. Breathing a bit easier today compared to yesterday. Still not quite back to his baseline. He is maintaining O2 saturations in the low 90s on 3 L/m per nasal cannula. He remains on DuoNeb inhalations, Pulmicort and Perfor omist inhalations, IV same Medrol. Antibiotics in the form of Levaquin. 0.9 normal saline at 75 ML's per hour. Heparin for DVT prophylaxis. Count 5.8. Hemoglobin 7.7. Platelet count 40,000. Sodium 137. Potassium 4.6. Creatinine 1.1. Glucose 134. The patient is seen today 07/31/2021 in follow-up on the regular medical floor. He is currently resting comfortably in bed. Awake and alert in no acute distress. He still has dyspnea with minimal exertion. Still with a loose productive cough. Sputum culture pending. Glucose 146. Blood culture reveals no growth to date. He is continued on DuoNeb inhalations, Pulmicort and Perforomist inhalations, IV Solu Medrol, antibiotics in the form of Levaquin. Heparin for DVT prophylaxis. 0.9 normal saline at 20 ML's per hour. Oral diuretics. Echocardiogram pending. Objective - Vital Signs Vital signs: Vital Signs Temp 97.6 F 07/31/21 07:00 Pulse 88 07/31/21 11:33 Resp 18 07/31/21 07:00 BP 120/73 07/31/21 07:00 Pulse Ox 96 07/31/21 07:49 Intake & Output 07/30/21 07/31/21 07/31/21 18:59 06:59 18:59 Output Total 1000 Balance -1000 Output: Urine 1000 Other: Voiding Method Toilet Toilet Toilet Urinal Urinal Urinal # Voids 1 2 - Exam GENERAL EXAM: Alert, very pleasant 75-year-old gentleman, on 3 L nasal cannula, fairly comfortable in no apparent distress. HEAD: Normocephalic. EYES: Normal reaction of pupils, equal size. NOSE: Clear with pink turbinates. THROAT: No erythema or exudates. NECK: No masses, no JVD. CHEST: No chest wall deformity. LUNGS: Equal air entry with bilateral scattered rhonchi, end expiratory wheeze, diminished. CVS: S1 and S2 normal with no audible murmur, regular rhythm. ABDOMEN: No hepatosplenomegaly, normal bowel sounds, no guarding or rigidity. SPINE: No scoliosis or deformity SKIN: No rashes CENTRAL NERVOUS SYSTEM: No focal deficits, tone is normal in all 4 extremities. EXTREMITIES: There is no peripheral edema. No clubbing, no cyanosis. Peripheral pulses are intact. - Labs CBC & Chem 7: 07/30/21 03:59 07/30/21 03:59 Labs: Abnormal Lab Results - Last 24 Hours (Table) 07/30/21 07/30/21 07/30/21 Range/Units 12:17 17:30 21:27 POC Glucose (mg/dL) 176 H 139 H 159 H (75-99) mg/dL 07/31/21 Range/Units 07:01 POC Glucose (mg/dL) 146 H (75-99) mg/dL Microbiology - Last 24 Hours (Table) 07/28/21 18:09 Blood Culture - Preliminary Blood No Growth after 48 hours 07/29/21 10:24 Blood Culture - Preliminary Blood No Growth after 24 hours 07/29/21 Unknown Gram Stain - Preliminary Sputum Sputum Culture - Preliminary Assessment and Plan Assessment: 1 Acute hypoxemic respiratory failure secondary to an acute exacerbation of COPD with FEV1 value 34% of predicted 2 Metastatic adenocarcinoma of the lungs, receiving chemotherapy 3 Recent admission in June 2021 for COPD exacerbation along with Stenotrophomonas maltophilia pulmonary infection 4 History of pseudomonas aeruginosa pulmonary infection in April 2020 5 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 9 Obstructive sleep apnea, mild, not on CPAP therapy Plan: The patient was seen and evaluated by Dr. Nicole Discontinue Levaquin, initiate cefepime Continue bronchodilators, IV Solu-Medrol Awaiting sputum culture results Titrate the FiO2 as tolerated Echocardiogram pending We will continue to follow I, the cosigning physician, performed a history & physical examination of the patient. Lungs sounds with bilateral scattered rhonchi, end expiratory wheeze, diminished. Maintaining good O2 saturations in the 90s on 3 L/m per nasal cannula. I discussed the assessment and plan of care with my nurse practitioner, Linh Way. I attest to the above note as dictated by her.
--- NOTE | 2021-07-31 12:37 | ECHOF ---
Referral Reason:LV function, nonsustained V tach MEASUREMENTS -------- HEIGHT: 182.9 cm WEIGHT: 74.8 kg BP: 130/86 RAP: 5.00 mmHg RVSP: 38.34 mmHg FINDINGS -------- Resting tachycardia (HR>100bpm). Limited Study Overall left ventricular systolic function is normal with, an EF between 60 - 65 %. There is mild aortic valve sclerosis. The mitral valve leaflets are mildly thickened. Mild mitral regurgitation is present. Mild tricuspid regurgitation present. There is mild pulmonary hypertension. The right ventricular systolic pressure, as measured by Doppler, is 38.34mmHg. There is no pericardial effusion. CONCLUSIONS -------- 1. Overall left ventricular systolic function is normal with, an EF between 60 - 65 %. 2. There is mild aortic valve sclerosis. 3. The mitral valve leaflets are mildly thickened. 4. Mild mitral regurgitation is present. 5. Mild tricuspid regurgitation present. 6. There is mild pulmonary hypertension. 7. The right ventricular systolic pressure, as measured by Doppler, is 38.34mmHg. 8. There is no pericardial effusion. SENIOR DATA MODELER: Nayely Pitt RDCS
--- NOTE | 2021-07-31 12:51 | XR ---
EXAMINATION TYPE: XR chest 1V portable DATE OF EXAM: 07/31/2021 COMPARISON: 07/28/2021 INDICATION: Pneumonia, lung cancer TECHNIQUE: Single frontal view of the chest is obtained. FINDINGS: The heart size is normal. The pulmonary vasculature is normal. There is a small left pleural effusion. Minimal right pleural effusion is present. IMPRESSION: 1. Small bilateral stable pleural effusions
[2021-07-31 15:17] LABS: African American GFR (CKD) 76.2 (60.0-200.0); BUN/Creat Ratio 28.18 Ratio (12.00-20.00); Calcium 8.7 mg/dL (8.7-10.3); Non-African American GFR(CKD) 65.8 (60.0-200.0); Potassium 4.5 mmol/L (3.5-5.5)
[2021-07-31 17:29] LABS: Glucose,Whole Blood 126 mg/dL (75-99)
--- NOTE | 2021-07-31 17:50 | P.PN ---
Subjective Progress Note Date: 07/31/21 Principal diagnosis: Acute exacerbation of chronic COPD, lung cancer Patient is up sitting next to bed reading, heart regular rate and rhythm lungs coarse breath sounds scattered rhonchi on nasal cannula otherwise doing well known history lung CA smoking which he quit acute exacerbation of chronic COPD Objective - Vital Signs Vital signs: Vital Signs Temp 98.1 F 07/31/21 14:48 Pulse 80 07/31/21 14:48 Resp 18 07/31/21 14:48 BP 129/71 07/31/21 14:48 Pulse Ox 97 07/31/21 14:48 Intake & Output 07/30/21 07/31/21 07/31/21 18:59 06:59 18:59 Output Total 1000 Balance -1000 Output: Urine 1000 Other: Voiding Method Toilet Toilet Toilet Urinal Urinal Urinal # Voids 1 2 - Exam General: [Patient awake, alert and oriented times 3. Patient in no acute distress.] HEENT: [PERRL. EOMI. No pharyngeal erythema or exudate.] Neck: [No adenopathy.] Cardiac: [Heart regular in rate and rhythm. No S3. No S4. No clicks, rubs. No murmur.] Lungs: Diminished breath sounds bilaterally scattered rhonchi right worse than left with bibasilar crackles Abdomen: [No mass. No organomegaly. Bowel sounds presnt and normoactive in all 4 quadrants.] Extremes: [No edema no cyanosis no claudication normal pulses] : Normal male genitalia Musculoskeletal: [No joint erythema, edema or tenderness.] Skin: [No rash.] Neurologic: [No lateralizing deficits. CN II - XII grossly intact.] Lymphatic: [No adenopathy.] - Labs CBC & Chem 7: 07/30/21 03:59 07/31/21 05:02 Labs: Abnormal Lab Results - Last 24 Hours (Table) 07/30/21 07/31/21 07/31/21 Range/Units 21:27 05:02 07:01 Chloride 94 L (96-109) mmol/L Carbon Dioxide 38.0 H (21.6-31.8) mmol/L BUN 31.0 H (9.0-27.0) mg/dL BUN/Creatinine Ratio 28.18 H (12.00-20.00) Ratio Glucose 133 H (70-110) mg/dL POC Glucose (mg/dL) 159 H 146 H (75-99) mg/dL 07/31/21 07/31/21 Range/Units 11:54 17:27 Chloride (96-109) mmol/L Carbon Dioxide (21.6-31.8) mmol/L BUN (9.0-27.0) mg/dL BUN/Creatinine Ratio (12.00-20.00) Ratio Glucose (70-110) mg/dL POC Glucose (mg/dL) 159 H 126 H (75-99) mg/dL Microbiology - Last 24 Hours (Table) 07/29/21 Unknown Gram Stain - Final Sputum Sputum Culture - Final Stenotrophomonas maltophilia 07/29/21 10:24 Blood Culture - Preliminary Blood No Growth after 48 hours 07/28/21 18:09 Blood Culture - Preliminary Blood No Growth after 48 hours Assessment and Plan (1) History of lung cancer in adulthood Current Visit: Yes Status: Acute Code(s): Z85.118 - PERSONAL HISTORY OF MALIGNANT NEOPLASM OF BRONCHUS AND LUNG SNOMED Code(s): 799657555 (2) Acute respiratory failure with hypoxia Current Visit: Yes Status: Acute Code(s): J96.01 - ACUTE RESPIRATORY FAILURE WITH HYPOXIA SNOMED Code(s): 38220808 (3) Chronic obstructive pulmonary disease (COPD) Current Visit: Yes Status: Acute Code(s): J44.9 - CHRONIC OBSTRUCTIVE PULMONARY DISEASE, UNSPECIFIED SNOMED Code(s): 93865389 (4) Dyspnea Current Visit: Yes Status: Acute Code(s): R06.00 - DYSPNEA, UNSPECIFIED SNOMED Code(s): 455127788 (5) Mild protein-calorie malnutrition Current Visit: Yes Status: Acute Code(s): E44.1 - MILD PROTEIN-CALORIE MALNUTRITION SNOMED Code(s): 031044580 (6) Pleural effusion Current Visit: Yes Status: Acute Code(s): J90 - PLEURAL EFFUSION, NOT ELSEWHERE CLASSIFIED SNOMED Code(s): 05252173 (7) Compression fracture of T6 vertebra Current Visit: No Status: Acute Code(s): S22.050A - WEDGE COMPRESSION FRACTURE OF T5-T6 VERTEBRA, INIT SNOMED Code(s): 669872561 Plan: Currently on IV antibiotics IV steroids Long-acting beta agonist Updraft treatments Chemotherapeutic agents for lung ca consultation with oncology consultation with pulmonary medicine continue current care Time with Patient: Greater than 30
[2021-07-31 18:41] LABS: Basophils # (A) 0.01 X 10*3/uL (0.00-0.10); Basophils % (A) 0.2 %; Eosinophils # (A) 0 X 10*3/uL (0.04-0.35); Eosinophils % (A) 0 %; HCT 22.6 % (39.6-50.0); HGB 7.3 g/dL (13.0-17.0); Lymphocytes # (A) 0.23 X 10*3/uL (0.90-5.00); Lymphocytes % (A) 4.5 %; MCH 36.3 pg (27.0-32.0); MCHC 32.3 g/dL (32.0-37.0); MCV 112.4 fL (80.0-97.0); Macrocytosis (M) 3+; Mean Platelet Volume 12.2 fL (9.5-12.2); Monocytes # (A) 0.59 X 10*3/uL (0.20-1.00); Monocytes % (A) 11.6 %; Neutrophils # (A) 4.15 X 10*3/uL (1.80-7.70); Neutrophils % (A) 81.7 %; Platelet Count 43 X 10*3/uL (140-440); RBC 2.01 X 10*6/uL (4.40-5.60); RDW 17.1 % (11.5-14.5); WBC 5.08 X 10*3/uL (4.50-10.00)
[2021-07-31 20:34] LABS: Glucose,Whole Blood 146 mg/dL (75-99)
[2021-07-31] MEDS: CEFEPIME 2 GM in SODIUM CHLORIDE 0.9% 100 ML IVPB SCH (21:14)
[2021-07-31] MEDS: clonazePAM 0.5 MG TAB PO SCH (21:14)
[2021-07-31] MEDS: LIDOCAINE 5% PATCH TOPICAL SCH (21:15)
[2021-08-01] MEDS: methylPREDNISolone SOD SUCCI 125 MG/2 ML VIAL IV SCH ×4 (00:51→17:16)
[2021-08-01] MEDS: SODIUM CHLORIDE 0.9% 1,000 ML IV SCH (01:18)
[2021-08-01] MEDS: FORMOTEROL FUMARATE 20 MCG/2 ML NEBU INHALATION SCH ×2 (07:06→20:19)
[2021-08-01] MEDS: IPRATROPIUM-ALBUTEROL 3 ML NEB INHALATION SCH ×4 (07:06→20:19)
[2021-08-01] MEDS: BUDESONIDE 1 MG/2 ML NEBU INHALATION SCH ×2 (07:06→20:19)
[2021-08-01 07:09] LABS: Glucose,Whole Blood 146 mg/dL (75-99)
[2021-08-01] MEDS: METOPROLOL SUCCINATE (ER) 25 MG TAB.ER.24H PO SCH (07:53)
[2021-08-01] MEDS: POTASSIUM CHLORIDE ER 20 MEQ TAB.ER PO SCH (07:53)
[2021-08-01] MEDS: HEPARIN SODIUM,PORCINE/PF 5,000 UNIT/0.5 ML SYRINGE SQ SCH ×2 (07:53→21:37)
[2021-08-01] MEDS: PANTOPRAZOLE 40 MG TABLET PO SCH ×2 (07:53→21:35)
[2021-08-01] MEDS: MULTIVITAMINS, THERA 1 EACH TAB PO SCH (07:53)
[2021-08-01] MEDS: FOLIC ACID 1 MG TAB PO SCH (07:53)
[2021-08-01] MEDS: DOCUSATE 100 MG CAP PO SCH ×2 (07:53→21:35)
[2021-08-01] MEDS: FUROSEMIDE 40 MG TAB PO SCH ×2 (07:53→21:35)
[2021-08-01] MEDS: CEFEPIME 2 GM in SODIUM CHLORIDE 0.9% 100 ML IVPB SCH ×2 (07:54→21:36)
[2021-08-01] MEDS: SULFAMETHOX-TMP 800-160MG 1 EACH TAB PO SCH ×2 (11:20→21:35)
[2021-08-01 11:40] LABS: Glucose,Whole Blood 189 mg/dL (75-99)
--- NOTE | 2021-08-01 17:36 | P.PN ---
Subjective Progress Note Date: 08/01/21 This is a very pleasant 75-year-old gentleman who follows with Dr. Ortega is his primary care provider. He has a history of metastatic adenocarcinoma of the lungs. He also has a history of chronic obstructive pulmonary disease with an FEV1 value 34% of predicted. He follows with Dr. Nicole in our office for the same. He is on home oxygen at 2.5 L. He has nebulized treatments along with Anoro and albuterol HFA. He is receiving chemotherapy for his lung cancer. He had previously been on immunotherapy with that had been stopped due to suspected worsening shortness of breath. He received chemotherapy again this month. He presented to the emergency room yesterday with a 2 day history of increasing shortness of breath. He was here for a similar presentation last month and was found to have Stenotrophomonas maltophilia in his sputum. Chest x-ray shows increasing lower lobe pneumonia and pleural fluid compared to previous on 07/03/2021. CT angiogram ruled out pulmonary embolism. There is bilateral pleural effusions which appear increase compared to previous. Progression of T6 compression fracture. L1 compression fracture unchanged. White count 5.9. Hemoglobin 8.3. MCV 110.6. Sodium 134. Potassium 4.1. Creatinine 1.02. D- dimer 0.75. Malagon virus not detected. He is seen today in consultation on the regular medical floor. He is currently resting fairly comfortably in bed. Awake and alert in no acute distress. He has a loose productive cough. No fever or chills. No hemoptysis. Maintaining O2 saturations in the mid 90s on 3 L/m per nasal cannula. He has been afebrile. He was initiated on ceftriaxone and azithromycin. Remains on bronchodilators, IV Solu-Medrol. The patient is seen today 07/30/2021 in follow-up on the regular medical floor. He is currently sitting up in a chair at the bedside. Awake and alert in no acute distress. Breathing a bit easier today compared to yesterday. Still not quite back to his baseline. He is maintaining O2 saturations in the low 90s on 3 L/m per nasal cannula. He remains on DuoNeb inhalations, Pulmicort and Perfor omist inhalations, IV same Medrol. Antibiotics in the form of Levaquin. 0.9 normal saline at 75 ML's per hour. Heparin for DVT prophylaxis. Count 5.8. Hemoglobin 7.7. Platelet count 40,000. Sodium 137. Potassium 4.6. Creatinine 1.1. Glucose 134. The patient is seen today 07/31/2021 in follow-up on the regular medical floor. He is currently resting comfortably in bed. Awake and alert in no acute distress. He still has dyspnea with minimal exertion. Still with a loose productive cough. Sputum culture pending. Glucose 146. Blood culture reveals no growth to date. He is continued on DuoNeb inhalations, Pulmicort and Perforomist inhalations, IV Solu Medrol, antibiotics in the form of Levaquin. Heparin for DVT prophylaxis. 0.9 normal saline at 20 ML's per hour. Oral diuretics. Echocardiogram pending. The patient is seen today 08/01/2021 in follow-up on the regular medical floor. He is currently sitting up in chair at the bedside. He is a bit better today compared to yesterday. Not quite back to his baseline. She is maintaining O2 saturations in the 90s on 3 L/m per nasal cannula. He's been afebrile. Hemodynamically stable. Sputum culture is positive for Stenotrophomonas maltophilia. Blood cultures reveal no growth. He is currently on DuoNeb inhalations, Pulmicort and Perforomist inhalations, IV Solu-Medrol. Antibiotics in the form of cefepime. Remains on oral diuretics. Heparin for DVT prophylaxis. Objective - Vital Signs Vital signs: Vital Signs Temp 97.7 F 08/01/21 15:00 Pulse 88 08/01/21 16:58 Resp 17 08/01/21 15:00 BP 121/69 08/01/21 15:00 Pulse Ox 98 08/01/21 15:00 Intake & Output 07/31/21 08/01/21 08/01/21 18:59 06:59 18:59 Intake Total 716 Output Total 450 400 Balance -450 316 Intake: Oral 716 Output: Urine 450 400 Other: Voiding Method Toilet Toilet Toilet Urinal Urinal Urinal # Voids 1 - Exam GENERAL EXAM: Alert, very pleasant 75-year-old gentleman, on 3 L nasal cannula, fairly comfortable in no apparent distress. HEAD: Normocephalic. EYES: Normal reaction of pupils, equal size. NOSE: Clear with pink turbinates. THROAT: No erythema or exudates. NECK: No masses, no JVD. CHEST: No chest wall deformity. LUNGS: Equal air entry with bilateral scattered rhonchi, end expiratory wheeze, diminished. CVS: S1 and S2 normal with no audible murmur, regular rhythm. ABDOMEN: No hepatosplenomegaly, normal bowel sounds, no guarding or rigidity. SPINE: No scoliosis or deformity SKIN: No rashes CENTRAL NERVOUS SYSTEM: No focal deficits, tone is normal in all 4 extremities. EXTREMITIES: There is no peripheral edema. No clubbing, no cyanosis. Peripheral pulses are intact. - Labs CBC & Chem 7: 07/31/21 05:02 07/31/21 05:02 Labs: Abnormal Lab Results - Last 24 Hours (Table) 07/31/21 07/31/21 08/01/21 Range/Units 05:02 20:33 07:08 RBC 2.01 L (4.40-5.60) X 10*6/uL Hgb 7.3 L (13.0-17.0) g/dL Hct 22.6 L (39.6-50.0) % MCV 112.4 H (80.0-97.0) fL MCH 36.3 H (27.0-32.0) pg RDW 17.1 H (11.5-14.5) % Plt Count 43 L (140-440) X 10*3/uL Plt Count Comment A Immature Gran # 0.10 H (0.00-0.04) X 10*3/uL Lymphocytes # 0.23 L (0.90-5.00) X 10*3/uL Eosinophils # 0 L (0.04-0.35) X 10*3/uL Immature Plt Fraction 10.4 H (1.1-6.1) % POC Glucose (mg/dL) 146 H 146 H (75-99) mg/dL 08/01/21 Range/Units 11:32 RBC (4.40-5.60) X 10*6/uL Hgb (13.0-17.0) g/dL Hct (39.6-50.0) % MCV (80.0-97.0) fL MCH (27.0-32.0) pg RDW (11.5-14.5) % Plt Count (140-440) X 10*3/uL Plt Count Comment Immature Gran # (0.00-0.04) X 10*3/uL Lymphocytes # (0.90-5.00) X 10*3/uL Eosinophils # (0.04-0.35) X 10*3/uL Immature Plt Fraction (1.1-6.1) % POC Glucose (mg/dL) 189 H (75-99) mg/dL Microbiology - Last 24 Hours (Table) 07/29/21 10:24 Blood Culture - Preliminary Blood No Growth after 72 hours 07/28/21 18:09 Blood Culture - Preliminary Blood No Growth after 72 hours 07/29/21 Unknown Gram Stain - Final Sputum Sputum Culture - Final Stenotrophomonas maltophilia Assessment and Plan Assessment: 1 Acute hypoxemic respiratory failure secondary to an acute exacerbation of COPD with FEV1 value 34% of predicted , complicated by stenotrophomonas pulmonary infection 2 Metastatic adenocarcinoma of the lungs, receiving chemotherapy 3 Recent admission in June 2021 for COPD exacerbation along with Stenotrophomonas maltophilia pulmonary infection 4 History of pseudomonas aeruginosa pulmonary infection in April 2020 5 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 9 Obstructive sleep apnea, mild, not on CPAP therapy Plan: The patient was seen and evaluated by Dr. Nicole Sputum culture positive for stenotrophomonas The patient states his sulfa ALLERGY was found while he was in high school as an exchange student in [place] He is willing to try Bactrim while here in the hospital Continue bronchodilators, IV Solu-Medrol Titrate the FiO2 as tolerated Echocardiogram reviewed, preserved LV function, no valvular disease We will continue to follow I, the cosigning physician, performed a history & physical examination of the patient. Lungs sounds with bilateral scattered rhonchi, end expiratory wheeze, diminished. Maintaining good O2 saturations in the 90s on 3 L/m per nasal cannula. I discussed the assessment and plan of care with my nurse practitioner, Linh Way. I attest to the above note as dictated by her.
[2021-08-01 17:37] LABS: Glucose,Whole Blood 137 mg/dL (75-99)
[2021-08-01 20:49] LABS: Glucose,Whole Blood 238 mg/dL (75-99)
[2021-08-01] MEDS: Acetaminophen-Codeine 300-30mg TAB PO PRN (21:35)
[2021-08-01] MEDS: clonazePAM 0.5 MG TAB PO SCH (21:35)
[2021-08-01] MEDS: LIDOCAINE 5% PATCH TOPICAL SCH (21:36)
--- NOTE | 2021-08-01 23:51 | P.CONS ---
History of Present Illness - Reason for Consult Consult date: 08/01/21 Stenotrophomonas + sputum Requesting physician: Brynn Nicole - Chief Complaint shortness of breath and cough x 5 days - History of Present Illness History of present illness : Patient is 75-year-old male with a past medical history significant for COPD lung cancer in this patient presented to the hospital on 07/28/2021 for evaluation of increasing shortness of breath and cough that has been getting worse for 2 days before presentation to the hospital the patient has been using his inhaler and nebulizer treatment without any improvement has been treated with a course of Medrol Dosepak and doxycycline did not have any improvement patient last chemotherapy has been about 10 days before presentation to the hospital patient denies having any fever or any chills and no fever has been recorded during this admission patient complaining of shortness of breath on minimal exertion Transient patient also have a cough which is moderate intensity with occasional sputum production no hemoptysis no pleuritic chest pain patient on presentation to the hospital was afebrile and no fever has been recorded subsequently patient did have a normal white count with mild lymphopenia D-dimer was mildly elevated creatinine was normal liver enzymes are normal horner PCR has been negative patient did have a chest x-ray increasing lower lobe pneumonia and pleural fluid compared to old exam he also have a CT angiogram of the chest no evidence of PE bilateral pleural effusion which appeared to have increased compared to old exam patient did have a sputum cultures obtained which has been finalized with stenotrophomonas that is intermediate sensitivity to ceftazidime will resistant to Levaquin and sensitive to Bactrim patient did have a sulfa allergy from long time ago however the patient did agree to try some form he was started on Bactrim DS continued on cefepime infectious disease was consulted for further management of antibiotic therapy Review of system: CONSTITUTIONAL: Positive for weakness however denies fever. EYES: No complaint. ENT: No complaint. RESPIRATORY: As per history of present illness. CARDIOVASCULAR: No complaint. GENITOURINARY: No complaint. GASTROINTESTINAL: No complaint. MUSCULOSKELETAL: No complaint. INTEGUMENTARY: No complaint. PSYCHOLOGIC: No complaint. ENDOCRINE: No complaint. NEUROLOGIC: No complaint. Past medical history : Reviewed, documented below Past surgical history : Reviewed, documented below Social history: Reviewed, documented below Medications: Reviewed, as documented below EXAMINATION: Vital sigans= Reviewed and documented below GENERAL DESCRIPTION: Elderly male up in the chair, no distress. No tachypnea or accessory muscle of respiration use. HEENT: Shows Pallor , no scleral icterus. Oral mucous membrane is dry. NECK: Trachea central, no thyromegaly. LUNGS: Unlabored breathing. Coarse breath sounds bilaterally. No wheeze or crackle. HEART: S1, S2, regular rate and rhythm. ABDOMEN: Soft, no tenderness , guarding or rigidity EXTREMITIES: No edema of feet. SKIN: No rash, no masses palpable. NEUROLOGICAL: The patient is awake, alert, oriented x3, mood and affect normal. LABS AND RADIOLOGY: Reviewed results see below Assessment :1- Patient with a positive sputum culture with stenotrophomonas in this patient who do have underlying history of lung cancer and a COPD presenting to the hospital with increasing shortness of breath and cough chest x-ray that shows increasing infiltrate at the bases CT angiogram was negative for PE did shows increasing effusions and compressive atelectasis in this patient who did not have any fever or elevated white count on admission with concern for possible colonization underlying pneumonia less likely bilateral excluded 2-patient with a sulfa and tetracycline allergy that would limit the number of antibiotics safe to use Plan: 1-we will obtain a CRP and procalcitonin level 2-continue with cefepime as there is no evidence of was intermediate sensitive to it and will see the patient is able to tolerate Bactrim DS We will follow on clinical condition and cultures to further adjust medication if needed Thank you for this consultation we will follow the patient along with you Past Medical History Past Medical History: Cancer, GERD/Reflux, Pneumonia Additional Past Medical History / Comment(s): 05/10/20 pericardial effusion with early cardiac tamponade/acute respiratory failure with pericardiocentesis/pneumonia/bilateral leg edema, cancer pericardial sac/chest lymph nodes per pt/spouse-receiving chemotherapy-last time approximately 6 weeks ago/on hold for recent hernia surgery/then URI, past vertigo when first standing/syncope pt states d/t electrolyte disturbance, anemia with transfusions, lung nodules being monitored and thought possibly scarring from previous pneumonia, prostate cancer with surgery, skin cancer with removals, gastritis, hiatal hernia, severe clausterphobia, 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 and has had past falls out of bed, bilateral CHEESH-NA and tinnitis, past alcoholism per pt but quit drinking 31 plus yrs ago, shingles last week History of Any Multi-Drug Resistant Organisms: None Reported Past Surgical History: Joint Replacement, Prostate Surgery Additional Past Surgical History / Comment(s): 03/12/21 inguinal hernia surgery, 05/18/20 EGD, colonoscopy, robot assisted laparoscopic prostatectomy with bilateral lymph node dissection, skin cancer removals, rt hip replacement Past Anesthesia/Blood Transfusion Reactions: No Reported Reaction Additional Past Anesthesia/Blood Transfusion Reaction / Comm: Claustrophobic. Past Psychological History: No Psychological Hx Reported Additional Psychological History / Comment(s): Pt resides with his spouse and he r adult son. Spouse and son are caregivers for patient. Pt unable to ambulate any distance, he is assisted to wheelchair. He has a nebulizer and home oxygen. He also has a pulse oximetry. His spouse/son drive him to [place]. Smoking Status: Former smoker Past Alcohol Use History: None Reported Additional Past Alcohol Use History / Comment(s): Pt started smoking as a teen and quit 04/2020. Quit alcohol 31 yrs ago- states Hx of heavy alcohol use. Past Drug Use History: None Reported - Past Family History Mother Family Medical History: Cancer Additional Family Medical History / Comment(s): breast cancer, Etoh abuse. Father Family Medical History: COPD, Dementia, Musculoskeletal Disorder, Neurologic Disorder Additional Family Medical History / Comment(s): parkinson's, ETOH abuse Medications and Allergies Home Medications Medication Instructions Recorded Confirmed Type Umeclidinium Brm/Vilanterol Tr 1 puff INHALATION RT-DAILY 03/01/19 07/28/21 History [Anoro Ellipta 62.5-25 Mcg INH] clonazePAM [KlonoPIN] 0.5 mg PO HS 03/01/19 07/28/21 History Albuterol Nebulized [Ventolin 2.5 mg INHALATION RT-QID PRN 05/09/20 07/28/21 History Nebulized] Folic Acid 2 mg PO DAILY 07/13/20 07/28/21 History Multivitamins, Thera [Multivitamin 1 tab PO DAILY 03/07/21 07/28/21 History (formulary)] Pantoprazole [Protonix] 40 mg PO BID 03/07/21 07/28/21 History Albuterol Inhaler [Ventolin Hfa 2 puff INHALATION RT-QID PRN 04/15/21 07/28/21 History Inhaler] Potassium Chloride ER [K-Dur 20] 20 meq PO DAILY 06/29/21 07/28/21 History Acetaminophen Tab [Tylenol] 650 mg PO Q6HR PRN tab 07/04/21 07/28/21 Rx Fluticasone Nasal [place] [Flonase 1 spray EA NOSTRIL BID PRN #1 07/05/21 07/28/21 Rx Nasal [place]] bottle Acetaminophen-Codeine 300-30mg 1 - 2 tab PO Q6H PRN 07/28/21 07/28/21 History [Tylenol w/codeine #3] Doxycycline Hyclate 100 mg PO BID 07/28/21 07/28/21 History Furosemide [Lasix] 40 mg PO BID 07/28/21 07/28/21 History methylPREDNISolone Dose Pack See Taper PO DIRECTED 07/28/21 07/28/21 History [Medrol Dose Pack] Allergies Allergy/AdvReac Type Severity Reaction Status Date / Time Sulfa (Sulfonamide Allergy Unknown Rash/Hives Verified 07/28/21 18:21 Antibiotics) tetracycline Allergy Unknown "Fuzzy Verified 07/28/21 18:21 headed" Physical Exam Vitals: Vital Signs Temp Pulse Pulse Resp BP Pulse Ox 08/01/21 11:55 80 08/01/21 11:44 80 08/01/21 08:00 89 18 08/01/21 07:35 84 08/01/21 07:21 84 08/01/21 07:20 84 08/01/21 07:06 80 08/01/21 07:00 98.3 F 89 18 133/61 96 08/01/21 01:07 97.9 F 82 18 122/68 95 07/31/21 19:18 98.5 F 86 16 131/71 98 07/31/21 19:15 88 07/31/21 19:03 88 07/31/21 19:02 84 07/31/21 18:55 80 07/31/21 14:48 98.1 F 80 18 129/71 97 Intake and Output 07/31/21 08/01/21 08/01/21 22:59 06:59 14:59 Intake Total 416 Output Total 200 250 200 Balance -200 -250 216 Intake: Oral 416 Output: Urine 200 250 200 Other: Voiding Method Toilet Toilet Toilet Urinal Urinal Urinal # Voids 1 1 Results CBC & Chem 7: 07/31/21 05:02 07/31/21 05:02 Labs: Abnormal Lab Results - Last 24 Hours (Table) 07/31/21 07/31/21 07/31/21 Range/Units 05:02 05:02 17:27 RBC 2.01 L (4.40-5.60) X 10*6/uL Hgb 7.3 L (13.0-17.0) g/dL Hct 22.6 L (39.6-50.0) % MCV 112.4 H (80.0-97.0) fL MCH 36.3 H (27.0-32.0) pg RDW 17.1 H (11.5-14.5) % Plt Count 43 L (140-440) X 10*3/uL Plt Count Comment A Immature Gran # 0.10 H (0.00-0.04) X 10*3/uL Lymphocytes # 0.23 L (0.90-5.00) X 10*3/uL Eosinophils # 0 L (0.04-0.35) X 10*3/uL Immature Plt Fraction 10.4 H (1.1-6.1) % Chloride 94 L (96-109) mmol/L Carbon Dioxide 38.0 H (21.6-31.8) mmol/L BUN 31.0 H (9.0-27.0) mg/dL BUN/Creatinine Ratio 28.18 H (12.00-20.00) Ratio Glucose 133 H (70-110) mg/dL POC Glucose (mg/dL) 126 H (75-99) mg/dL 07/31/21 08/01/21 08/01/21 Range/Units 20:33 07:08 11:32 RBC (4.40-5.60) X 10*6/uL Hgb (13.0-17.0) g/dL Hct (39.6-50.0) % MCV (80.0-97.0) fL MCH (27.0-32.0) pg RDW (11.5-14.5) % Plt Count (140-440) X 10*3/uL Plt Count Comment Immature Gran # (0.00-0.04) X 10*3/uL Lymphocytes # (0.90-5.00) X 10*3/uL Eosinophils # (0.04-0.35) X 10*3/uL Immature Plt Fraction (1.1-6.1) % Chloride (96-109) mmol/L Carbon Dioxide (21.6-31.8) mmol/L BUN (9.0-27.0) mg/dL BUN/Creatinine Ratio (12.00-20.00) Ratio Glucose (70-110) mg/dL POC Glucose (mg/dL) 146 H 146 H 189 H (75-99) mg/dL Microbiology - Last 24 Hours (Table) 07/29/21 10:24 Blood Culture - Preliminary Blood No Growth after 72 hours 07/28/21 18:09 Blood Culture - Preliminary Blood No Growth after 72 hours 07/29/21 Unknown Gram Stain - Final Sputum Sputum Culture - Final Stenotrophomonas maltophilia
[2021-08-02] MEDS: methylPREDNISolone SOD SUCCI 125 MG/2 ML VIAL IV SCH ×5 (00:48→23:13)
[2021-08-02] MEDS: SODIUM CHLORIDE 0.9% 1,000 ML IV SCH (01:33)
[2021-08-02] MEDS: Acetaminophen-Codeine 300-30mg TAB PO PRN ×2 (04:36→21:20)
[2021-08-02 07:07] LABS: Glucose,Whole Blood 128 mg/dL (75-99)
[2021-08-02] MEDS: BUDESONIDE 1 MG/2 ML NEBU INHALATION SCH ×2 (07:41→20:30)
[2021-08-02] MEDS: FORMOTEROL FUMARATE 20 MCG/2 ML NEBU INHALATION SCH ×2 (07:41→20:30)
[2021-08-02] MEDS: IPRATROPIUM-ALBUTEROL 3 ML NEB INHALATION SCH ×4 (07:41→20:30)
[2021-08-02] MEDS: POTASSIUM CHLORIDE ER 20 MEQ TAB.ER PO SCH (09:04)
[2021-08-02] MEDS: CEFEPIME 2 GM in SODIUM CHLORIDE 0.9% 100 ML IVPB SCH ×2 (09:04→21:20)
[2021-08-02] MEDS: HEPARIN SODIUM,PORCINE/PF 5,000 UNIT/0.5 ML SYRINGE SQ SCH ×2 (09:04→21:21)
[2021-08-02] MEDS: PANTOPRAZOLE 40 MG TABLET PO SCH ×2 (09:04→21:20)
[2021-08-02] MEDS: MULTIVITAMINS, THERA 1 EACH TAB PO SCH (09:04)
[2021-08-02] MEDS: SULFAMETHOX-TMP 800-160MG 1 EACH TAB PO SCH ×2 (09:04→21:20)
[2021-08-02] MEDS: DOCUSATE 100 MG CAP PO SCH ×2 (09:05→21:20)
[2021-08-02] MEDS: FOLIC ACID 1 MG TAB PO SCH (09:05)
[2021-08-02] MEDS: METOPROLOL SUCCINATE (ER) 25 MG TAB.ER.24H PO SCH (09:05)
[2021-08-02] MEDS: FUROSEMIDE 40 MG TAB PO SCH ×2 (09:05→21:20)
--- NOTE | 2021-08-02 10:43 | P.PN ---
Subjective Progress Note Date: 08/01/21 This is a 75-year-old gentleman with history of COPD, metastatic adenocarcinoma of the lungs, admitted with recurrent stenotrophomonas maltophilia of the sputum/recently treated for the same in June 2021. Evaluated by both pulmonary and infectious disease. Reports ALLERGIES to sulfa as a teenager [employer]-unsure of the exact reaction. Continues on cefepime, Bactrim recently initiated-currently tolerating well. Reports feeling better this morning. Reports productive cough with yellow greenish sputum-state less tenacious. Afebrile. Maintaining O2 sats in the 90s on 3 L nasal cannula. Echo reporting normal LV function,EF between 60 and 65%, mild pulmonary hypertension. Denies chest pain, palpitations or increased shortness of breath. Actually reports less shortness of breath. Objective - Vital Signs Vital signs: Vital Signs Temp 97.7 F 08/01/21 15:00 Pulse 83 08/01/21 15:00 Resp 17 08/01/21 15:00 BP 121/69 08/01/21 15:00 Pulse Ox 98 08/01/21 15:00 Intake & Output 07/31/21 08/01/21 08/01/21 18:59 06:59 18:59 Intake Total 716 Output Total 450 400 Balance -450 316 Intake: Oral 716 Output: Urine 450 400 Other: Voiding Method Toilet Toilet Toilet Urinal Urinal Urinal # Voids 1 - Exam - Exam General: Sitting up in bed, alert and oriented times 3, no acute distress.] HEENT: [PERRL. EOMI. No pharyngeal erythema or exudate.] Neck: [No adenopathy.] Cardiac: [Heart regular in rate and rhythm. No S3. No S4. No clicks, rubs. No murmur.] Lungs: Diminished breath sounds bilaterally scattered rhonchi with expiratory wheeze. Abdomen: [No mass. No organomegaly. Bowel sounds presnt and normoactive in all 4 quadrants.] Extremes: [No edema no cyanosis no claudication normal pulses] Skin: Warm and dry, No rash.] Neurologic: [No lateralizing deficits. CN II - XII grossly intact.] - Labs CBC & Chem 7: 07/31/21 05:02 07/31/21 05:02 Labs: Abnormal Lab Results - Last 24 Hours (Table) 07/31/21 07/31/21 07/31/21 Range/Units 05:02 17:27 20:33 RBC 2.01 L (4.40-5.60) X 10*6/uL Hgb 7.3 L (13.0-17.0) g/dL Hct 22.6 L (39.6-50.0) % MCV 112.4 H (80.0-97.0) fL MCH 36.3 H (27.0-32.0) pg RDW 17.1 H (11.5-14.5) % Plt Count 43 L (140-440) X 10*3/uL Plt Count Comment A Immature Gran # 0.10 H (0.00-0.04) X 10*3/uL Lymphocytes # 0.23 L (0.90-5.00) X 10*3/uL Eosinophils # 0 L (0.04-0.35) X 10*3/uL Immature Plt Fraction 10.4 H (1.1-6.1) % POC Glucose (mg/dL) 126 H 146 H (75-99) mg/dL 08/01/21 08/01/21 Range/Units 07:08 11:32 RBC (4.40-5.60) X 10*6/uL Hgb (13.0-17.0) g/dL Hct (39.6-50.0) % MCV (80.0-97.0) fL MCH (27.0-32.0) pg RDW (11.5-14.5) % Plt Count (140-440) X 10*3/uL Plt Count Comment Immature Gran # (0.00-0.04) X 10*3/uL Lymphocytes # (0.90-5.00) X 10*3/uL Eosinophils # (0.04-0.35) X 10*3/uL Immature Plt Fraction (1.1-6.1) % POC Glucose (mg/dL) 146 H 189 H (75-99) mg/dL Microbiology - Last 24 Hours (Table) 07/29/21 10:24 Blood Culture - Preliminary Blood No Growth after 72 hours 07/28/21 18:09 Blood Culture - Preliminary Blood No Growth after 72 hours 07/29/21 Unknown Gram Stain - Final Sputum Sputum Culture - Final Stenotrophomonas maltophilia Assessment and Plan Assessment: Acute COPD exacerbation, sputum culture reporting recurrent stenotrophomonas maltophilia. 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 Antibiotics regimen as per ID. Aggressive pulmonary toileting including IV steroids, nebulized bronchodilators. Increase activity as tolerated. Close monitoring of renal function, electrolytes, coags with repeat labs ordered for a.m. The impression and plan of care has been dictated as directed. : I performed a history and examination of this patient, discussed the same with the dictator. I agree with the dictator's note ,documented as a scribe. Any additional findings or plans will be noted.
[2021-08-02 12:21] LABS: Glucose,Whole Blood 170 mg/dL (75-99)
[2021-08-02 13:13] LABS: African American GFR (CKD) 62.3 (60.0-200.0); Anion Gap 3.9 mmol/L (4.00-12.00); Calcium 8.7 mg/dL (8.7-10.3); Carbon Dioxide 39.1 mmol/L (21.6-31.8); Non-African American GFR(CKD) 53.8 (60.0-200.0); Potassium 4.6 mmol/L (3.5-5.5)
[2021-08-02 14:02] LABS: Basophils # (M) 0 X 10*3/uL (0.00-0.10); Eosinophils # (M) 0 X 10*3/uL (0.04-0.35); HGB 8.2 g/dL (13.0-17.0); Lymphocytes # (M) 0.29 X 10*3/uL (0.90-5.00); MCH 35.3 pg (27.0-32.0); MCHC 31.5 g/dL (32.0-37.0); MCV 112.1 fL (80.0-97.0); Macrocytosis (M) 3+; Mean Platelet Volume 11.4 fL (9.5-12.2); Monocytes # (M) 0.43 X 10*3/uL (0.20-1.00); Myelocytes % 3 % (0-0); Neutrophils # (M) 6.26 X 10*3/uL (2.00-8.90); Neutrophils % (M) 87 %; Platelet Count 77 X 10*3/uL (140-440); RBC 2.32 X 10*6/uL (4.40-5.60); RDW 17.4 % (11.5-14.5)
[2021-08-02] MEDS ORDERED: polyethylene glycoL 3350 17 GM POWD.PACK PO STA (14:32)
--- NOTE | 2021-08-02 16:47 | P.PN ---
Subjective Progress Note Date: 08/02/21 This is a 75-year-old gentleman with history of COPD, metastatic adenocarcinoma of the lungs, admitted with recurrent stenotrophomonas maltophilia of the sputum/recently treated for the same in June 2021. Evaluated by both pulmonary and infectious disease. Reports ALLERGIES [facility] [employer]-unsure of the exact reaction. Continues on cefepime, Bactrim recently initiated-currently tolerating well. Reports feeling better this morning. Reports productive cough with yellow greenish sputum-state less tenacious. Afebrile. Maintaining O2 sats in the 90s on 3 L nasal cannula. Echo reporting normal LV function,EF between 60 and 65%, mild pulmonary hypertension. Denies chest pain, palpitations or increased shortness of breath. Actually reports less shortness of breath. 08/02/21 tolerating antibiotic regimen, maintaining O2 sats on 3 L nasal cannula. Afebrile. Elevated pro-calcitonin. Reports improved loose cough. Complains of constipation. Denies chest pain, palpitations or increasing shortness of breath. Objective - Vital Signs Vital signs: Vital Signs Temp 97.7 F 08/02/21 07:00 Pulse 82 08/02/21 07:59 Resp 16 08/02/21 07:00 BP 120/73 08/02/21 07:00 Pulse Ox 95 08/02/21 07:00 Intake & Output 08/01/21 08/02/21 08/02/21 18:59 06:59 18:59 Intake Total 716 416 Output Total 400 700 Balance 316 -700 416 Intake: Oral 716 416 Output: Urine 400 700 Other: Voiding Method Toilet Toilet Urinal Urinal # Voids 2 - Exam - Exam General: Sitting up in bed, alert and oriented times 3, no acute distress.] HEENT: [PERRL. EOMI. No pharyngeal erythema or exudate.] Neck: Supple, no JVD Cardiac: [Heart regular in rate and rhythm. No S3. No S4. No clicks, rubs. No murmur.] Lungs: Bilateral bases Diminished, scattered rhonchi with fine expiratory wheeze. Abdomen: [No mass. No organomegaly. Bowel sounds presnt and normoactive in all 4 quadrants.] Extremes: [No edema no cyanosis no claudication normal pulses] Skin: Warm and dry, No rash.] Neurologic: [No lateralizing deficits. CN II - XII grossly intact.] - Labs CBC & Chem 7: 08/02/21 07:13 08/02/21 07:13 Labs: Abnormal Lab Results - Last 24 Hours (Table) 08/01/21 08/01/21 08/01/21 Range/Units 11:32 14:38 17:33 POC Glucose (mg/dL) 189 H 137 H (75-99) mg/dL Procalcitonin 0.11 H (0.02-0.09) ng/mL 08/01/21 08/02/21 Range/Units 20:47 07:06 POC Glucose (mg/dL) 238 H 128 H (75-99) mg/dL Procalcitonin (0.02-0.09) ng/mL Microbiology - Last 24 Hours (Table) 07/28/21 18:09 Blood Culture - Preliminary Blood No Growth after 96 hours 07/29/21 10:24 Blood Culture - Preliminary Blood No Growth after 72 hours Assessment and Plan Assessment: Acute COPD exacerbation, sputum culture reporting recurrent stenotrophomonas maltophilia. 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 Maintain antibiotics as per ID. continue with aggressive pulmonary toileting including IV steroids, nebulized bronchodilators. Increase activity as tolerated. Labs pending . Discharge planning in progress pending pulmonary and infectious disease final DC recommendations and clearance. The impression and plan of care has been dictated as directed. : I performed a history and examination of this patient, discussed the same with the dictator. I agree with the dictator's note ,documented as a scribe. Any additional findings or plans will be noted.
[2021-08-02 17:12] LABS: Glucose,Whole Blood 138 mg/dL (75-99)
--- NOTE | 2021-08-02 17:34 | PN ---
PROGRESS NOTE DATE OF SERVICE: 08/02/2021 REASON FOR FOLLOWUP: Stenotrophomonas tracheobronchitis/pneumonia. INTERVAL HISTORY: The patient is afebrile. The patient is feeling better. He is breathing slightly comfortably. Denies having any chest pain. Continues to have a cough, though decreased in intensity. No vomiting. No abdominal pain or diarrhea. PHYSICAL EXAMINATION: Blood pressure is 127/64 with pulse of 84, temperature 98.3. He is 99% on 3 L nasal cannula. GENERAL DESCRIPTION: General description is an elderly male up in the bed in no distress. RESPIRATORY SYSTEM: Unlabored breathing. Decreased intensity of breath sounds. No wheeze. HEART: S1, S2. Regular rate and rhythm. ABDOMEN: Soft. No tenderness. LABS: Hemoglobin of 8.1, white count 7.20, BUN of 39, creatinine 1.3. DIAGNOSTIC IMPRESSION AND PLAN: Patient with Stenotrophomonas tracheobronchitis/pneumonia. The patient did have however, is tolerating his Bactrim DS; to continue and monitor his clinical course closely. Continue supportive care. MMODL / IJN: [id number] /
[2021-08-02 20:40] LABS: Glucose,Whole Blood 121 mg/dL (75-99)
[2021-08-02] MEDS: SENNOSIDES-DOCUSATE SODIUM 1 EACH TAB PO SCH (21:20)
[2021-08-02] MEDS: clonazePAM 0.5 MG TAB PO SCH (21:20)
[2021-08-02] MEDS: LIDOCAINE 5% PATCH TOPICAL SCH (21:21)
[2021-08-03] MEDS: SODIUM CHLORIDE 0.9% 1,000 ML IV SCH (02:52)
[2021-08-03] MEDS: methylPREDNISolone SOD SUCCI 125 MG/2 ML VIAL IV SCH ×2 (05:44→13:06)
[2021-08-03 07:01] LABS: Glucose,Whole Blood 118 mg/dL (75-99)
[2021-08-03] MEDS: BUDESONIDE 1 MG/2 ML NEBU INHALATION SCH (07:45)
[2021-08-03] MEDS: FORMOTEROL FUMARATE 20 MCG/2 ML NEBU INHALATION SCH (07:45)
[2021-08-03] MEDS: IPRATROPIUM-ALBUTEROL 3 ML NEB INHALATION SCH ×3 (07:45→15:11)
[2021-08-03] MEDS: DOCUSATE 100 MG CAP PO SCH (08:19)
[2021-08-03] MEDS: SULFAMETHOX-TMP 800-160MG 1 EACH TAB PO SCH (08:19)
[2021-08-03] MEDS: FUROSEMIDE 40 MG TAB PO SCH (08:19)
[2021-08-03] MEDS: POTASSIUM CHLORIDE ER 20 MEQ TAB.ER PO SCH (08:19)
[2021-08-03] MEDS: MULTIVITAMINS, THERA 1 EACH TAB PO SCH (08:19)
[2021-08-03] MEDS: HEPARIN SODIUM,PORCINE/PF 5,000 UNIT/0.5 ML SYRINGE SQ SCH (08:20)
[2021-08-03] MEDS: SENNOSIDES-DOCUSATE SODIUM 1 EACH TAB PO SCH (08:20)
[2021-08-03] MEDS: PANTOPRAZOLE 40 MG TABLET PO SCH (08:20)
[2021-08-03] MEDS: METOPROLOL SUCCINATE (ER) 25 MG TAB.ER.24H PO SCH (08:20)
[2021-08-03] MEDS: FOLIC ACID 1 MG TAB PO SCH (08:20)
[2021-08-03] MEDS: CEFEPIME 2 GM in SODIUM CHLORIDE 0.9% 100 ML IVPB SCH (08:20)
[2021-08-03 10:26] VITALS: BMI 22.4
[2021-08-03 10:28] LABS: African American GFR (CKD) 58 (>60 ml/min/1.73 sqM); Anion Gap 4 mmol/L; Blood Urea Nitrogen 38 mg/dL (9-20); Calcium 8.7 mg/dL (8.4-10.2); Carbon Dioxide 38 mmol/L (22-30); Chloride 89 mmol/L (98-107); Glucose 158 mg/dL (74-99); Non-African American GFR(CKD) 51 (>60 ml/min/1.73 sqM); Potassium 4.6 mmol/L (3.5-5.1); Sodium 131 mmol/L (137-145)
--- NOTE | 2021-08-03 12:18 | P.DS ---
Providers Date of admission: 07/31/21 09:42 Expected date of discharge: 08/03/21 Attending physician: Kaveh Garcia Consults: 07/28/21 21:27 Consult Physician Urgent Consulting Provider: Brynn Nicole Consult Reason/Comments: COPD, lung cancer, pleural effusions Do you want consulting provider notified?: Yes 07/29/21 09:10 Consult Physician Routine Consulting Provider: Rebeca Luna Consult Reason/Comments: worse t6 compression fx Do you want consulting provider notified?: Yes 08/01/21 10:26 Consult Physician Routine Consulting Provider: Miguel A De Paz Consult Reason/Comments: Stenotrophomonas lung infection Do you want consulting provider notified?: Yes Primary care physician: [facility] Course: Final Diagnoses: Acute COPD exacerbation, sputum culture reporting recurrent stenotrophomonas maltophilia. 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 Evaluated by both pulmonary and infectious disease. Reports ALLERGIES to sulfa as a teenager during high school-unsure of the exact reaction. Continues on cefepime, Bactrim recently initiated-currently tolerating well. Reports feeling better this morning. Reports productive cough with yellow greenish sputum-state less tenacious. Afebrile. Maintaining O2 sats in the 90s on 3 L nasal cannula. Echo reporting normal LV function,EF between 60 and 65%, mild pulmonary hypertension. Denies chest pain, palpitations or increased shortness of breath. Actually reports less shortness of breath. 08/02/21 tolerating antibiotic regimen, maintaining O2 sats on 3 L nasal cannula. Afebrile. Elevated pro-calcitonin. Reports improved loose cough. Complains of constipation. Denies chest pain, palpitations or increasing shortness of breath. Significant clinical improvement .consuming 100% of diet with no nausea vomiting or diarrhea. Denies abdominal pain. Ambulating, tolerating exertion-at baseline. Maintaining O2 sats in the 90s on 3 L nasal cannula. Cleared by infectious disease for discharge. Patient will be discharged home on Bactrim DS daily 1 week with recheck of BMP on Friday secondary to renal function mildly trending up since initiation of Bactrim-unfortunately nothing else out there secondary to susceptibilities, pending pulmonary clearance. Microbiology 07/28/21 18:09 Blood Blood Culture - Preliminary No Growth after 120 hours 07/29/21 10:24 Blood Blood Culture - Preliminary No Growth after 96 hours 07/29/21 Unknown Sputum Gram Stain - Final 07/29/21 Unknown Sputum Sputum Culture - Final Stenotrophomonas maltophilia The impression and plan of care has been dictated as directed. : I performed a history and examination of this patient, discussed the same with the dictator. I agree with the dictator's note ,documented as a scribe. Any additional findings or plans will be noted. Patient Condition at Discharge: Stable Plan - Discharge Summary Discharge Rx Participant: No New Discharge Prescriptions: New Sennosides-Docusate Sodium [Senokot-S] 2 each PO BID tab Metoprolol Succinate (ER) [Toprol XL] 25 mg PO DAILY #30 tablet predniSONE 10 mg PO DIRECTED #30 tab Sulfamethox-Tmp 800-160Mg [Bactrim DS 800-160 mg] 1 each PO DAILY #7 tab Continue Umeclidinium Brm/Vilanterol Tr [Anoro Ellipta 62.5-25 Mcg INH] 1 puff INHALATION RT-DAILY clonazePAM [KlonoPIN] 0.5 mg PO HS Albuterol Nebulized [Ventolin Nebulized] 2.5 mg INHALATION RT-QID PRN PRN Reason: Shortness Of Breath Folic Acid 2 mg PO DAILY Multivitamins, Thera [Multivitamin (formulary)] 1 tab PO DAILY Acetaminophen Tab [Tylenol] 650 mg PO Q6HR PRN tab PRN Reason: Mild Pain Or Fever > 100.5 Fluticasone Nasal [place] [Flonase Nasal [place]] 1 spray EA NOSTRIL BID PRN #1 bottle PRN Reason: Congestion Furosemide [Lasix] 40 mg PO BID Pantoprazole [Protonix] 40 mg PO BID Albuterol Inhaler [Ventolin Hfa Inhaler] 2 puff INHALATION RT-QID PRN PRN Reason: Shortness Of Breath Potassium Chloride ER [K-Dur 20] 20 meq PO DAILY Acetaminophen-Codeine 300-30mg [Tylenol w/codeine #3] 1 - 2 tab PO Q6H PRN PRN Reason: Pain Discontinued methylPREDNISolone Dose Pack [Medrol Dose Pack] See Taper PO DIRECTED Doxycycline Hyclate 100 mg PO BID Discharge Medication List Umeclidinium Brm/Vilanterol Tr [Anoro Ellipta 62.5-25 Mcg INH] 1 puff INHALATION RT-DAILY 03/01/19 [History] clonazePAM [KlonoPIN] 0.5 mg PO HS 03/01/19 [History] Albuterol Nebulized [Ventolin Nebulized] 2.5 mg INHALATION RT-QID PRN 05/09/20 [History] Folic Acid 2 mg PO DAILY 07/13/20 [History] Multivitamins, Thera [Multivitamin (formulary)] 1 tab PO DAILY 03/07/21 [History] Pantoprazole [Protonix] 40 mg PO BID 03/07/21 [History] Albuterol Inhaler [Ventolin Hfa Inhaler] 2 puff INHALATION RT-QID PRN 04/15/21 [History] Potassium Chloride ER [K-Dur 20] 20 meq PO DAILY 06/29/21 [History] Acetaminophen Tab [Tylenol] 650 mg PO Q6HR PRN tab 07/04/21 [Rx] Fluticasone Nasal [place] [Flonase Nasal [place]] 1 spray EA NOSTRIL BID PRN #1 bottle 07/05/21 [Rx] Acetaminophen-Codeine 300-30mg [Tylenol w/codeine #3] 1 - 2 tab PO Q6H PRN 07/28/21 [History] Furosemide [Lasix] 40 mg PO BID 07/28/21 [History] Metoprolol Succinate (ER) [Toprol XL] 25 mg PO DAILY #30 tablet 08/03/21 [Rx] Sennosides-Docusate Sodium [Senokot-S] 2 each PO BID tab 08/03/21 [Rx] Sulfamethox-Tmp 800-160Mg [Bactrim DS 800-160 mg] 1 each PO DAILY #7 tab 08/03/21 [Rx] predniSONE 10 mg PO DIRECTED #30 tab 08/03/21 [Rx] Follow up Appointment(s)/Referral(s): Adam Ortega Jr, DO [Primary Care Provider] - 3 Days Brynn Nicole MD [STAFF PHYSICIAN] - 2 Weeks Ambulatory/Diagnostic Orders: Basic Metabolic Panel [LAB.AMB] Time Frame: 3 Days, Location: None Selected Activity/Diet/Wound Care/Special Instructions: Antibiotics as per ID: Bactrim DS daily 1 week with recheck of BMP on Friday- close monitoring of renal function.
[2021-08-03 12:33] LABS: Glucose,Whole Blood 105 mg/dL (75-99)
--- NOTE | 2021-08-03 14:46 | P.PN ---
Subjective Progress Note Date: 08/03/21 On today's evaluation on 08/03/2021 patient is seen in follow-up on medical oncology floor. She is resting comfortably in bed, breathing comfortably, has 3 L of oxygen, pulse ox is 93-95%, lung sounds reveal some mild wheezes on today's exam, but the patient reports breathing easier, and sounds less bronchospastic and congested on today's exam, no fever or chills. Chest x-ray from 07/31/2021 shows bilateral pleural effusions, stable in appearance. The combination of cefepime and Bactrim for evidence of stenotrophomonas in the sputum cultures, he is improving. No fever or chills, no acute events overnight. Objective - Vital Signs Vital signs: Vital Signs Temp 98.1 F 08/03/21 07:00 Pulse 85 08/03/21 14:00 Resp 18 08/03/21 14:00 BP 114/50 08/03/21 07:00 Pulse Ox 95 08/03/21 07:48 Intake & Output 08/02/21 08/03/21 08/03/21 18:59 06:59 18:59 Intake Total 796 Output Total 400 750 600 Balance 396 -750 -600 Weight 74.843 kg Intake: Intake, IV Titration 260 Amount Cefepime 2 gm In Sodium 100 Chloride 0.9% 100 ml @ 25 mls/hr IVPB Q12HR RUPERTO Rx #:[id number] Sodium Chloride 0.9% 1, 160 000 ml @ 20 mls/hr IV . Q24H RUPERTO Rx#:[id number] Oral 536 Output: Urine 400 750 600 Other: Voiding Method Toilet Toilet Urinal Urinal # Voids 0 - Exam GENERAL EXAM: Alert, very pleasant, 75-year-old white male, on 3 L of oxygen, breathing comfortably active, comfortable in no apparent distress. HEAD: Normocephalic/atraumatic. EYES: Normal reaction of pupils, equal size. Conjunctiva pink, sclera white. NOSE: Clear with pink turbinates. THROAT: No erythema or exudates. NECK: No masses, no JVD, no thyroid enlargement, no adenopathy. CHEST: No chest wall deformity. Symmetrical expansion. LUNGS: Equal air entry with mild wheezing CVS: Regular rate and rhythm, normal S1 and S2, no gallops, no murmurs, no rubs ABDOMEN: Soft, nontender. No hepatosplenomegaly, normal bowel sounds, no guarding or rigidity. EXTREMITIES: No clubbing, no edema, no cyanosis, 2+ pulses and upper and lower extremities. MUSCULOSKELETAL: Muscle strength and tone normal. SPINE: No scoliosis or deformity SKIN: No rashes CENTRAL NERVOUS SYSTEM: Alert and oriented -3. No focal deficits, tone is normal in all 4 extremities. PSYCHIATRIC: Alert and oriented -3. Appropriate affect. Intact judgment and insight. - Labs CBC & Chem 7: 08/02/21 07:13 08/03/21 09:28 Labs: Abnormal Lab Results - Last 24 Hours (Table) 08/02/21 08/02/21 08/03/21 Range/Units 17:10 20:38 07:00 Sodium (137-145) mmol/L Chloride (98-107) mmol/L Carbon Dioxide (22-30) mmol/L BUN (9-20) mg/dL Creatinine (0.66-1.25) mg/dL Glucose (74-99) mg/dL POC Glucose (mg/dL) 138 H 121 H 118 H (75-99) mg/dL 08/03/21 08/03/21 Range/Units 09:28 12:32 Sodium 131 L (137-145) mmol/L Chloride 89 L (98-107) mmol/L Carbon Dioxide 38 H (22-30) mmol/L BUN 38 H (9-20) mg/dL Creatinine 1.37 H (0.66-1.25) mg/dL Glucose 158 H (74-99) mg/dL POC Glucose (mg/dL) 105 H (75-99) mg/dL Microbiology - Last 24 Hours (Table) 07/29/21 10:24 Blood Culture - Preliminary Blood No Growth after 120 hours 07/28/21 18:09 Blood Culture - Preliminary Blood No Growth after 120 hours Assessment and Plan Plan: 1 Acute hypoxemic respiratory failure secondary to an acute exacerbation of COPD with FEV1 value 34% of predicted , complicated by stenotrophomonas pulmonary inf ection 2 Metastatic adenocarcinoma of the lungs, receiving chemotherapy 3 Recent admission in June 2021 for COPD exacerbation along with Stenotrophomonas maltophilia pulmonary infection 4 History of pseudomonas aeruginosa pulmonary infection in April 2020 5 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 9 Obstructive sleep apnea, mild, not on CPAP therapy Plan: Vital signs have been stable No fever or chills Continue antibiotics per ID service recommendations Breathing easier No acute events overnight Stable for discharge home today from pulmonary perspective He will need to be sent home on prednisone 30 mg daily until he is seen in the office by Dr. Nicole And he can be discharged home on antibiotics of ID service recommendations\ I performed a history & physical examination of the patient and discussed their management with my nurse practitioner, Kandi Saleem. I reviewed the nurse practitioner's note and agree with the documented findings and plan of care. Lung sounds are positive mild wheezes throughout the lung coronel. The findings and the impression was discussed with the patient. I attest to the documentation by the nurse practitioner. Time with Patient: Less than 30
[2021-08-03 15:05] VITALS: BP 110/69; PULSE 82; RESP 16; TEMP 98.4
--- NOTE | 2021-08-03 15:30 | PN ---
PROGRESS NOTE DATE OF SERVICE: 08/03/2021 REASON FOR FOLLOWUP: Stenotrophomonas tracheobronchitis. INTERVAL HISTORY: The patient is afebrile. He was complaining of more shortness of breath today. The patient denies having chest pain. He did have a cough, not bringing up any sputum. No abdominal pain or diarrhea. PHYSICAL EXAMINATION: Blood pressure 110/69, pulse of 80, temperature 98.4. He is 93% on 3 L nasal cannula. GENERAL DESCRIPTION: General description is an elderly male up in the bed in no distress. RESPIRATORY SYSTEM: Unlabored breathing. Coarse breath sounds bilaterally. No wheeze. HEART: S1, S2. Regular rate and rhythm. ABDOMEN: Soft. No tenderness. LABS: BUN of , creatinine 1.37. DIAGNOSTIC IMPRESSION AND PLAN: Patient with Stenotrophomonas tracheobronchitis resistant to the Levaquin. The patient is on Bactrim. Slight worsening of his kidney function. He can be switched over to with careful monitoring of his kidney function. Plan of care was discussed with the primary team. MMODL / IJN: [id number] /
== END 2021-08-03 15:48 | disposition home or self-care (01) | DRG 190 ==
LOC: EC 17:37 → 6NMEDSUR 21:26 → OBSVTOIN 07-31 09:42 → INTOOBSV 08-01 07:04 → OBSVTOIN 08-01 07:04
PROVIDERS: ADMIT Family Medicine; ATTEND Family Medicine
DX: J44.1 Chronic obstructive pulmonary disease with (acute) exacerbation (principal); J96.21 Acute and chronic respiratory failure with hypoxia; I31.3 Pericardial effusion (noninflammatory); E44.1 Mild protein-calorie malnutrition; I47.2 Ventricular tachycardia; J91.8 Pleural effusion in other conditions classified elsewhere; M48.54XA Collapsed vertebra, not elsewhere classified, thoracic region, initial encounter for fracture; S22.059A Unspecified fracture of T5-T6 vertebra, initial encounter for closed fracture; S32.010A Wedge compression fracture of first lumbar vertebra, initial encounter for closed fracture; D64.9 Anemia, unspecified; K21.9 Gastro-esophageal reflux disease without esophagitis; E86.0 Dehydration; F17.200 Nicotine dependence, unspecified, uncomplicated; G47.33 Obstructive sleep apnea (adult) (pediatric); G47.52 REM sleep behavior disorder; I27.20 Pulmonary hypertension, unspecified; I87.2 Venous insufficiency (chronic) (peripheral); K59.00 Constipation, unspecified; Z96.641 Presence of right artificial hip joint; Z20.822 Contact with and (suspected) exposure to COVID-19; Z79.899 Other long term (current) drug therapy; Z80.3 Family history of malignant neoplasm of breast; Z82.0 Family history of epilepsy and other diseases of the nervous system; Z82.5 Family history of asthma and other chronic lower respiratory diseases; Z85.118 Personal history of other malignant neoplasm of bronchus and lung; Z85.46 Personal history of malignant neoplasm of prostate; Z85.828 Personal history of other malignant neoplasm of skin; Z86.19 Personal history of other infectious and parasitic diseases; Z88.2 Allergy status to sulfonamides; Z90.79 Acquired absence of other genital organ(s); Z92.21 Personal history of antineoplastic chemotherapy
CPT/HCPCS: 36415; 71045; 71275; 80048; 80053; 83605; 83735; 83880; 84145; 84484; 85025; 85379; 85610; 85730; 86140; 87040; 87070; 87077; 87186; 87205; 87635; 93005; 93308; 94640; 94760; 96374; 99285

== ENCOUNTER → 2021-08-06 | Outpatient (CLI) | payer MEDICARE ==
[2021-08-06 16:12] LABS: HCT 29.8 % (39.6-50.0); HGB 9.2 g/dL (13.0-17.0); MCH 35.1 pg (27.0-32.0); MCHC 30.9 g/dL (32.0-37.0); MCV 113.7 fL (80.0-97.0); Mean Platelet Volume 10.2 fL (9.5-12.2); Platelet Count 188 X 10*3/uL (140-440); RBC 2.62 X 10*6/uL (4.40-5.60); RDW 18.7 % (11.5-14.5); WBC 8.52 X 10*3/uL (4.50-10.00)
[2021-08-06 18:25] LABS: African American GFR (CKD) 48.5 (60.0-200.0); Anion Gap 9.2 mmol/L (4.00-12.00); Calcium 8.7 mg/dL (8.7-10.3); Carbon Dioxide 39.8 mmol/L (21.6-31.8); Non-African American GFR(CKD) 41.8 (60.0-200.0); Potassium 4.1 mmol/L (3.5-5.5)
== END | disposition home or self-care (01) ==
LOC: LABWHC1 10:31
PROVIDERS: ATTEND Nurse Practitioner
DX: J20.8 Acute bronchitis due to other specified organisms (principal)
CPT/HCPCS: 36415; 80048; 85027

== ENCOUNTER 2021-08-21 09:34 | Inpatient (IN) | payer MEDICARE ==
[2021-08-21] MEDS ORDERED: IPRATROPIUM-ALBUTEROL 3 ML NEB INHALATION STA (10:19)
--- NOTE | 2021-08-21 10:34 | ED ---
SOB HPI - General Chief Complaint: Shortness of Breath Stated Complaint: sob Time Seen by Provider: 08/21/21 10:07 Source: patient Mode of arrival: ambulatory Limitations: no limitations - History of Present Illness Initial Comments: 75-year-old male with a history of COPD cancer of the lung and history of pleural effusions in the past who presents today with complaints of increasing shortness of breath decreased oral intake exertional dyspnea. He purely had an x-ray done yesterday which showed evidence of fluid on the lungs he was started on antibiotics and steroids yesterday with no relief. He does admit to decreased oral intake over last couple days. No overt chest pain no fevers chills he has had some shaking. MD Complaint: shortness of breath, cough - Related Data Home Medications Medication Instructions Recorded Confirmed Umeclidinium Brm/Vilanterol Tr 1 puff INHALATION RT-DAILY 03/01/19 08/21/21 [Anoro Ellipta 62.5-25 Mcg INH] clonazePAM [KlonoPIN] 0.5 mg PO HS 03/01/19 08/21/21 Albuterol Nebulized [Ventolin 2.5 mg INHALATION RT-QID PRN 05/09/20 08/21/21 Nebulized] Folic Acid 2 mg PO DAILY 07/13/20 08/21/21 Multivitamins, Thera [Multivitamin 1 tab PO DAILY 03/07/21 08/21/21 (formulary)] Pantoprazole [Protonix] 40 mg PO BID 03/07/21 08/21/21 Albuterol Inhaler [Ventolin Hfa 2 puff INHALATION RT-QID PRN 04/15/21 08/21/21 Inhaler] Potassium Chloride ER [K-Dur 20] 20 meq PO DAILY 06/29/21 08/21/21 Acetaminophen-Codeine 300-30mg 1 - 2 tab PO Q6H PRN 07/28/21 08/21/21 [Tylenol w/codeine #3] Furosemide [Lasix] 40 mg PO BID 07/28/21 08/21/21 Fluticasone Nasal [place] [Flonase 1 spr EA NOSTRIL BID PRN 08/21/21 08/21/21 Nasal [place]] Sennosides-Docusate Sodium 2 tab PO BID 08/21/21 08/21/21 [Senokot-S] Sulfamethox-Tmp 800-160Mg [Bactrim 1 tab PO DAILY 08/21/21 08/21/21 DS 800-160 mg] Previous Rx's Medication Instructions Recorded Acetaminophen Tab [Tylenol] 650 mg PO Q6HR PRN tab 07/04/21 Metoprolol Succinate (ER) [Toprol 25 mg PO DAILY #30 tablet 08/03/21 XL] predniSONE 30 mg PO DAILY #30 tab 08/03/21 Allergies Allergy/AdvReac Type Severity Reaction Status Date / Time tetracycline Allergy Unknown "Fuzzy Verified 08/21/21 11:43 headed" Review of Systems ROS Statement: Those systems with pertinent positive or pertinent negative responses have been documented in the HPI. ROS Other: All systems not noted in ROS Statement are negative. Past Medical History Past Medical History: Cancer, GERD/Reflux, Pneumonia Additional Past Medical History / Comment(s): 05/10/20 pericardial effusion with early cardiac tamponade/acute respiratory failure with pericardiocentesis/pneumonia/bilateral leg edema, cancer pericardial sac/chest lymph nodes per pt/spouse-receiving chemotherapy-last time approximately 6 weeks ago/on hold for recent hernia surgery/then URI, past vertigo when first standing /syncope pt states d/t electrolyte disturbance, anemia with transfusions, lung nodules being monitored and thought possibly scarring from previous pneumonia, prostate cancer with surgery, skin cancer with removals, gastritis, hiatal hernia, severe clausterphobia, 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 and has had past falls out of bed, bilateral [place] and tinnitis, past alcoholism per pt but quit drinking 31 plus yrs ago, shingles last week History of Any Multi-Drug Resistant Organisms: None Reported Past Surgical History: Joint Replacement, Prostate Surgery Additional Past Surgical History / Comment(s): 03/12/21 inguinal hernia surgery, 05/18/20 EGD, colonoscopy, robot assisted laparoscopic prostatectomy with bilateral lymph node dissection, skin cancer removals, rt hip replacement Past Anesthesia/Blood Transfusion Reactions: No Reported Reaction Additional Past Anesthesia/Blood Transfusion Reaction / Comment(s): Claustrophobic. Past Psychological History: No Psychological Hx Reported Smoking Status: Former smoker Past Alcohol Use History: None Reported Past Drug Use History: None Reported - Past Family History Mother Family Medical History: Cancer Additional Family Medical History / Comment(s): breast cancer, Etoh abuse. Father Family Medical History: COPD, Dementia, Musculoskeletal Disorder, Neurologic Disorder Additional Family Medical History / Comment(s): parkinson's, ETOH abuse General Exam - General Exam Comments Initial Comments: This is a well-developed well-nourished awake alert oriented 3 male Limitations: no limitations General appearance: alert, anxious Head exam: Present: atraumatic, normocephalic, normal inspection Eye exam: Present: normal appearance, PERRL, EOMI. Absent: scleral icterus, conjunctival injection, periorbital swelling ENT exam: Present: mucous membranes dry Neck exam: Present: normal inspection, full ROM, other (No stridor JVD or bruits). Absent: tenderness, meningismus, lymphadenopathy Respiratory exam: Present: normal lung sounds bilaterally, wheezes, decreased breath sounds. Absent: respiratory distress, rales, rhonchi, stridor Cardiovascular Exam: Present: regular rate, normal rhythm, normal heart sounds. Absent: systolic murmur, diastolic murmur, rubs, gallop, clicks GI/Abdominal exam: Present: soft, normal bowel sounds. Absent: distended, tenderness, guarding, rebound, rigid Extremities exam: Present: full ROM, normal capillary refill, pedal edema, other (Stasis changes noted to the lower extremities). Absent: tenderness, joint swelling, calf tenderness Back exam: Present: normal inspection Neurological exam: Present: alert, oriented X3, CN II-XII intact Psychiatric exam: Present: normal affect, normal mood Skin exam: Present: warm, dry, intact, normal color. Absent: rash Course Vital Signs 08/21/21 08/21/21 08/21/21 09:50 10:15 10:35 Temperature 100.6 F H Pulse Rate 98 98 Respiratory 26 H 27 H 25 H Rate Blood Pressure 111/64 O2 Sat by Pulse 92 L 97 Oximetry 08/21/21 08/21/21 11:15 11:27 Temperature Pulse Rate 96 99 Respiratory Rate Blood Pressure O2 Sat by Pulse Oximetry Medical Decision Making - Medical Decision Making I did discuss findings with patient family patient be admitted with consultation by Dr. Nicole. Case discussed with Dr. Garcia. Patient did get improvement after the updraft. Patient does have - Lab Data Result diagrams: 08/21/21 10:29 08/21/21 10:29 Lab Results 08/21/21 08/21/2108/21/21 Range/Units 10:29 10:29 10:29 WBC 5.7 (3.8-10.6) k/uL RBC 2.78 L (4.30-5.90) m/uL Hgb 10.6 L (13.0-17.5) gm/dL Hct 31.0 L (39.0-53.0) % MCV 111.5 H (80.0-100.0) fL MCH 38.2 H (25.0-35.0) pg MCHC 34.2 (31.0-37.0) g/dL RDW 16.0 H (11.5-15.5) % Plt Count 87 L D (150-450) k/uL MPV 8.5 Neutrophils % 95 % Lymphocytes % 2 % Monocytes % 2 % Eosinophils % 0 % Basophils % 1 % Neutrophils # 5.5 (1.3-7.7) k/uL Lymphocytes # 0.1 L (1.0-4.8) k/uL Monocytes # 0.1 (0-1.0) k/uL Eosinophils # 0.0 (0-0.7) k/uL Basophils # 0.0 (0-0.2) k/uL Manual Slide Review Performed Macrocytosis Marked A PT 10.6 (9.0-12.0) sec INR 1.0 (<1.2) APTT 22.1 (22.0-30.0) sec Sodium 132 L (137-145) mmol/L Potassium 4.5 (3.5-5.1) mmol/L Chloride 89 L (98-107) mmol/L Carbon Dioxide 37 H (22-30) mmol/L Anion Gap 6 mmol/L BUN 40 H (9-20) mg/dL Creatinine 1.30 H (0.66-1.25) mg/dL Est GFR (CKD-EPI)AfAm 62 (>60 ml/min/1.73 sqM) Est GFR (CKD-EPI)NonAf 54 (>60 ml/min/1.73 sqM) Glucose 101 H (74-99) mg/dL Plasma Lactic Acid Abhishek (0.7-2.0) mmol/L Calcium 8.8 (8.4-10.2) mg/dL Magnesium 2.0 (1.6-2.3) mg/dL Total Bilirubin 0.5 (0.2-1.3) mg/dL AST 50 (17-59) U/L ALT 17 (4-49) U/L Alkaline Phosphatase 114 (38-126) U/L Creatine Kinase <20 L (55-170) U/L Troponin I (0.000-0.034) ng/mL NT-Pro-B Natriuret Pep pg/mL Total Protein 5.7 L (6.3-8.2) g/dL Albumin 3.2 L (3.5-5.0) g/dL 08/21/21 08/21/21 08/21/21 Range/Units 10:29 10:29 10:29 WBC (3.8-10.6) k/uL RBC (4.30-5.90) m/uL Hgb (13.0-17.5) gm/dL Hct (39.0-53.0) % MCV (80.0-100.0) fL MCH (25.0-35.0) pg MCHC (31.0-37.0) g/dL RDW (11.5-15.5) % Plt Count (150-450) k/uL MPV Neutrophils % % Lymphocytes % % Monocytes % % Eosinophils % % Basophils % % Neutrophils # (1.3-7.7) k/uL Lymphocytes # (1.0-4.8) k/uL Monocytes # (0-1.0) k/uL Eosinophils # (0-0.7) k/uL Basophils # (0-0.2) k/uL Manual Slide Review Macrocytosis PT (9.0-12.0) sec INR (<1.2) APTT (22.0-30.0) sec Sodium (137-145) mmol/L Potassium (3.5-5.1) mmol/L Chloride (98-107) mmol/L Carbon Dioxide (22-30) mmol/L Anion Gap mmol/L BUN (9-20) mg/dL Creatinine (0.66-1.25) mg/dL Est GFR (CKD-EPI)AfAm (>60 ml/min/1.73 sqM) Est GFR (CKD-EPI)NonAf (>60 ml/min/1.73 sqM) Glucose (74-99) mg/dL Plasma Lactic Acid Abhishek 1.7 (0.7-2.0) mmol/L Calcium (8.4-10.2) mg/dL Magnesium (1.6-2.3) mg/dL Total Bilirubin (0.2-1.3) mg/dL AST (17-59) U/L ALT (4-49) U/L Alkaline Phosphatase (38-126) U/L Creatine Kinase (55-170) U/L Troponin I 0.025 (0.000-0.034) ng/mL NT-Pro-B Natriuret Pep 880 pg/mL Total Protein (6.3-8.2) g/dL Albumin (3.5-5.0) g/dL - EKG Data -: EKG Interpreted by Me EKG shows normal: sinus rhythm, axis, intervals, QRS complexes, ST-T waves Rate: normal EKG Comments: Normal sinus rhythm rate 92. Interval 142 QRS 78 daily since QTC 324/400 ST-T wave changes - Radiology Data Radiology results: report reviewed (ABG shows evidence of bilateral pleural effusions with evidence of infiltrate), image reviewed Disposition Clinical Impression: Bilateral pleural effusion, COPD with exacerbation, Febrile illness, acute, Lung cancer Disposition: ADMITTED IP TO THIS HOSP Condition: Fair Referrals: Adam Ortega Jr, [Primary Care Provider] - 1-2 days
[2021-08-21 10:55] LABS: Partial Thromboplastin Time 22.1 sec (22.0-30.0); Prothrombin Time 10.6 sec (9.0-12.0)
[2021-08-21 11:01] LABS: ALT 17 U/L (4-49); AST 50 U/L (17-59); African American GFR (CKD) 62 (>60 ml/min/1.73 sqM); Albumin 3.2 g/dL (3.5-5.0); Alkaline Phosphatase 114 U/L (38-126); Anion Gap 6 mmol/L; Blood Urea Nitrogen 40 mg/dL (9-20); Calcium 8.8 mg/dL (8.4-10.2); Carbon Dioxide 37 mmol/L (22-30); Chloride 89 mmol/L (98-107); Creatine Kinase <20 U/L (55-170); Glucose 101 mg/dL (74-99); Non-African American GFR(CKD) 54 (>60 ml/min/1.73 sqM); Potassium 4.5 mmol/L (3.5-5.1); Sodium 132 mmol/L (137-145); Total Bilirubin 0.5 mg/dL (0.2-1.3); Total Protein 5.7 g/dL (6.3-8.2)
[2021-08-21 11:12] LABS: Basophils % (A) 1 %; Eosinophils % (A) 0 %; HGB 10.6 gm/dL (13.0-17.5); Lymphocytes # (A) 0.1 k/uL (1.0-4.8); Lymphocytes % (A) 2 %; MCH 38.2 pg (25.0-35.0); MCHC 34.2 g/dL (31.0-37.0); MCV 111.5 fL (80.0-100.0); Macrocytosis Marked; Mean Platelet Volume 8.5; Monocytes # (A) 0.1 k/uL (0-1.0); Monocytes % (A) 2 %; Neutrophils # (A) 5.5 k/uL (1.3-7.7); Neutrophils % (A) 95 %; RBC 2.78 m/uL (4.30-5.90); WBC 5.7 k/uL (3.8-10.6)
--- NOTE | 2021-08-21 11:22 | XR ---
EXAMINATION TYPE: XR chest 2V DATE OF EXAM: 08/21/2021 COMPARISON: 07/31/2021 HISTORY: Shortness of breath TECHNIQUE: Frontal and lateral views of the chest are obtained. FINDINGS: Scattered senescent parenchymal changes noted. Hyperinflation compatible with COPD. Bilateral pleural effusions with scattered areas of patchy infiltrate. No evidence for overt failure. Correlate clinically. Heart size is stable. Mediastinal structures are stable and grossly unremarkable. No evidence for hilar prominence. Degenerative changes dorsal spine. IMPRESSION: 1. Bilateral pleural effusions with scattered areas of patchy infiltrate. No evidence for overt failu re. Correlate clinically.
[2021-08-21 11:54] LABS: Platelet Count 87 k/uL (150-450)
[2021-08-21] MEDS ORDERED: cefTRIAXone IN SWFI 1,000 MG/10 ML SYRINGE IVP STA (12:36)
[2021-08-21] MEDS ORDERED: IPRATROPIUM-ALBUTEROL 3 ML NEB INHALATION PRN (12:45)
[2021-08-21] MEDS ORDERED: FLUTICASONE 50MCG/SPRAY NASAL 16GM EA NOSTRIL PRN (12:50)
[2021-08-21] MEDS: SODIUM CHLORIDE 0.9% 1,000 ML IV SCH (13:24)
--- NOTE | 2021-08-21 13:38 | P.CNPUL ---
History of Present Illness Consult date: 08/21/21 Reason for consult: dyspnea History of present illness: This is a 75-year-old male patient who is coming in today to the emergency for another episodes of worsening shortness of breath. He is well-known to me. He is known to have chronic dyspnea and advanced COPD with an FEV1 of 34% of predicted. He is also a case of metastatic adenocarcinoma consistent of a lung primary that was originally diagnosed on 05/10/2020. At that time the patient presented to us with a large pericardial effusion and required drainage and the fluid was consistent with adenocarcinoma. Since then, the patient underwent further investigation including a PET scan that showed uptake within a lymph node in the right supraclavicular area and the hilar area. He was started on systemic chemotherapy using carboplatinum and Alimta. He also received immunotherapy during the course of his treatment. At one point, the patient was receiving immunotherapy and due to concern of his worsening shortness of breath, the immunotherapy has been discontinued and currently is on a Alimta maintenance. The patient received his last dose of Alimta approximately 5 days ago. He is coming in today with worsening shortness of breath, cough and congestion and hypoxemia. At home is maintained on oxygen at 2 L per minute nasal cannula. Noted during his last hospitalization, the patient is COPD exacerbation his sputum was positive for stenotrophomonas. We ended up putting this patient on Bactrim and sent home on a prednisone burst taper. As the patient completed the course of antibiotics and steroids, his breathing got worse. The chest x-ray from today showing bilateral pleural effusion, worse on the left and there is some vague limited infiltration of the lung bases mainly consistent with some increased pulmonary vascular congestion. His previous echocardiogram was essentially within normal and the patient has a preserved LV function. His most recent computed tomography scan of the chest was done on 07/28/2021 and the patient was found to have advanced COPD with emphysematous changes bilaterally. There was also evidence of bilateral pleural effusion worse on the left and some atelectatic changes in lung bases bilaterally. There was no evidence of any pulmonary embolism. There was progression a T6 compression fracture and an old L1 compression fracture. No hilar masses. No filling defects. No pericardial effusion was seen. For now, the patient is having difficulty in breathing. He is currently on oxygen at 2 L his current pulse ox is 97%. He continues to have a very congested cough. His blood work shows a hemoglobin of 10.6 with a white cell count of 5.7. Platelet count is at 87. Normal coagulation profile. Creatinine is at 1.3. Sodium is at 132. ProBNP level is at 880. The pro calcitonin LEVEL HAS NOT BEEN CHECKED. CPK IS LESS THAN 20. THE REST OF THE ELECTROLYTES INCLUDING CALCIUM AND POTASSIUM ARE WITHIN NORMAL LIMITS. LIVER FUNCTION TESTS ARE ALSO WITHIN NORMAL LIMITS. Review of Systems CONSTITUTIONAL: Denies any recent significant weight loss or weight gain. EYES: Denies change in vision. EARS, NOSE, MOUTH, THROAT: Denies headaches, denies sore throat. CARDIOVASCULAR: Denies chest pain, palpitations or syncopal episodes. RESPIRATORY: Positive for shortness of breath, cough, congestion no hemoptysis. GASTROINTESTINAL: Denies change in appetite, denies abdominal pain GENITOURINARY: Denies hematuria, denies infections. MUSKULOSKELETAL: Positive for chronic back pain pain, denies swelling. INTEGUMENTARY: Denies rash, denies eczema. NEUROLOGICAL: Denies recent memory loss, no recent seizure activity. PSYCHIATRIC: Denies anxiety, denies depression. HEMATOLOGIC/LYMPHATIC: Denies anemia, denies enlarged lymph nodes. Past Medical History Past Medical History: Cancer, COPD, GERD/Reflux, Pneumonia Additional Past Medical History / Comment(s): 05/10/20 pericardial effusion with early cardiac tamponade/acute respiratory failure with pericardiocentesis/pneumonia/bilateral leg edema, cancer pericardial sac/chest lymph nodes per pt/spouse-receiving chemotherapy-last time approximately 6 weeks ago/on hold for recent hernia surgery/then URI, past vertigo when first standing/syncope pt states d/t electrolyte disturbance, anemia with transfusions, lung nodules being monitored and thought possibly scarring from previous pneumonia, prostate cancer with surgery, skin cancer with removals, gastritis, hiatal hernia, severe clausterphobia, 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 and has had past falls out of bed, bilateral [place] and tinnitis, past alcoholism per pt but quit drinking 31 plus yrs ago, shingles last week History of Any Multi-Drug Resistant Organisms: None Reported Past Surgical History: Joint Replacement, Prostate Surgery Additional Past Surgical History / Comment(s): 03/12/21 inguinal hernia surgery, 05/18/20 EGD, colonoscopy, robot assisted laparoscopic prostatectomy with bilateral lymph node dissection, skin cancer removals, rt hip replacement Past Anesthesia/Blood Transfusion Reactions: No Reported Reaction Additional Past Anesthesia/Blood Transfusion Reaction / Comment(s): Claustrophobic. Past Psychological History: No Psychological Hx Reported Smoking Status: Former smoker Past Alcohol Use History: None Reported Past Drug Use History: None Reported - Past Family History Mother Family Medical History: Cancer Additional Family Medical History / Comment(s): breast cancer, Etoh abuse. Father Family Medical History: COPD, Dementia, Musculoskeletal Disorder, Neurologic Disorder Additional Family Medical History / Comment(s): parkinson's, ETOH abuse Medications and Allergies Home Medications Medication Instructions Recorded Confirmed Type Umeclidinium Brm/Vilanterol Tr 1 puff INHALATION RT-DAILY 03/01/19 08/21/21 History [Anoro Ellipta 62.5-25 Mcg INH] clonazePAM [KlonoPIN] 0.5 mg PO HS 03/01/19 08/21/21 History Albuterol Nebulized [Ventolin 2.5 mg INHALATION RT-QID PRN 05/09/20 08/21/21 History Nebulized] Folic Acid 2 mg PO DAILY 07/13/20 08/21/21 History Multivitamins, Thera [Multivitamin 1 tab PO DAILY 03/07/21 08/21/21 History (formulary)] Pantoprazole [Protonix] 40 mg PO BID 03/07/21 08/21/21 History Albuterol Inhaler [Ventolin Hfa 2 puff INHALATION RT-QID PRN 04/15/21 08/21/21 History Inhaler] Potassium Chloride ER [K-Dur 20] 20 meq PO DAILY 06/29/21 08/21/21 History Acetaminophen Tab [Tylenol] 650 mg PO Q6HR PRN tab 07/04/21 08/21/21 Rx Acetaminophen-Codeine 300-30mg 1 - 2 tab PO Q6H PRN 07/28/21 08/21/21 History [Tylenol w/codeine #3] Furosemide [Lasix] 40 mg PO BID 07/28/21 08/21/21 History Metoprolol Succinate (ER) [Toprol 25 mg PO DAILY #30 tablet 08/03/21 08/21/21 Rx XL] predniSONE 30 mg PO DAILY #30 tab 08/03/21 08/21/21 Rx Fluticasone Nasal [place] [Flonase 1 spr EA NOSTRIL BID PRN 08/21/21 08/21/21 History Nasal [place]] Sennosides-Docusate Sodium 2 tab PO BID 08/21/21 08/21/21 History [Senokot-S] Sulfamethox-Tmp 800-160Mg [Bactrim 1 tab PO DAILY 08/21/21 08/21/21 History DS 800-160 mg] Allergies Allergy/AdvReac Type Severity Reaction Status Date / Time tetracycline Allergy Unknown "Fuzzy Verified 08/21/21 11:43 headed" Physical Exam Vitals: Vital Signs Temp Pulse Resp BP Pulse Ox 08/21/21 11:27 99 08/21/21 11:15 96 08/21/21 10:35 98 25 H 97 08/21/21 10:15 27 H 08/21/21 09:50 100.6 F H 98 26 H 111/64 92 L Intake and Output 08/20/21 08/21/21 08/21/21 22:59 06:59 14:59 Other: Weight 70.307 kg GENERAL EXAM: Alert, very pleasant 75-year-old gentleman, on 2 L nasal cannula, fairly comfortable in no apparent distress. HEAD: Normocephalic. EYES: Normal reaction of pupils, equal size. NOSE: Clear with pink turbinates. THROAT: No erythema or exudates. NECK: No masses, no JVD. CHEST: No chest wall deformity. LUNGS: Equal air entry with bilateral scattered rhonchi, end expiratory wheeze, diminished. CVS: S1 and S2 normal with no audible murmur, regular rhythm. ABDOMEN: No hepatosplenomegaly, normal bowel sounds, no guarding or rigidity. SPINE: No scoliosis or deformity SKIN: No rashes CENTRAL NERVOUS SYSTEM: No focal deficits, tone is normal in all 4 extremities. EXTREMITIES: There is no peripheral edema. No clubbing, no cyanosis. Peripheral pulses are intact. Results - Laboratory Findings CBC and BMP: 08/21/21 10:29 08/21/21 10:29 PT/INR, D-dimer PT 10.6 sec (9.0-12.0) 08/21/21 10: INR 1.0 (<1.2) 08/21/21 10:29 Abnormal lab findings: Abnormal Labs 08/21/21 08/21/21 10:29 10:29 RBC 2.78 L Hgb 10.6 L Hct 31.0 L MCV 111.5 H MCH 38.2 H RDW 16.0 H Plt Count 87 L D Lymphocytes # 0.1 L Macrocytosis Marked A Sodium 132 L Chloride 89 L Carbon Dioxide 37 H BUN 40 H Creatinine 1.30 H Glucose 101 H Creatine Kinase <20 L Total Protein 5.7 L Albumin 3.2 L - Diagnostic Findings Chest x-ray: image reviewed Assessment and Plan Plan: 1 Acute COPD exacerbation, and the patient is presenting for another episode of worsening shortness of breath, chest congestion and increased difficulty in breathing and hypoxemia and currently is on 2 L of oxygen by nasal cannula. The prior sputum culture was positive for stenotrophomonas maltophilia. The patient will be treated again with combination of of cefepime and Bactrim. 2 Acute on chronic hypoxic respiratory failure secondary to the above, wears 2.5 L nasal cannula at home 3 Mild pulmonary hypertension, normal LV function 4 History of metastatic adenocarcinoma of the lungs, last chemotherapy treatment 06/28/2021 5 History of malignant pericardial effusion status post systemic chemotherapy with Alimta and the patient is off immunotherapy 6 Compression fracture of T6 , acute 7 Compression fracture of L1, chronic 8 Severe COPD, stage III 9 History of prostate cancer 10 REM sleep behavior disorder 11 Mild obstructive sleep apnea, not on CPAP at home 12 History of tobacco dependence, quit 04/2020 13 Claustrophobic 14 History of shingles Plan Restart the patient on DuoNeb nebulized treatments around the clock Check pro calcitonin level With the patient IV cefepime and Bactrim orally Collect a sputum Gram stain and culture Switch this patient IV Lasix 40 mg every 12 hours Oxygen to maintain saturation above 90% Mucinex DM twice a day Stop Anoro and switch this patient a combination of Perforomist and Pulmicort nebulized twice a day IV Solu Medrol 60 g every 6 hours Check COVID-19 nasal swab Strongly considering the possibility of a bronchoscopy with therapeutic suctioning. May benefit from a left-sided thoracentesis for diagnostic and therapeutic reasons if the ultrasound of the chest shows a sizable effusion. We'll continue to follow. He'll be admitted to oncology unit. I am also going to make recommendations to hold off on chemotherapy at least for the next few months. His overall pulmonary status is better. I'm going to discuss this with oncology.
[2021-08-21] MEDS: IPRATROPIUM-ALBUTEROL 3 ML NEB INHALATION SCH ×2 (15:06→19:49)
[2021-08-21] MEDS: Acetaminophen-Codeine 300-30mg TAB PO PRN ×2 (15:25→21:19)
[2021-08-21] MEDS ORDERED: CEFEPIME 2 GM in SODIUM CHLORIDE 0.9% 100 ML IVPB SCH (16:00)
[2021-08-21] MEDS ORDERED: FUROSEMIDE 40 MG TAB PO SCH (16:00)
[2021-08-21] MEDS: BUDESONIDE 1 MG/2 ML NEBU INHALATION SCH (19:49)
[2021-08-21] MEDS: FORMOTEROL FUMARATE 20 MCG/2 ML NEBU INHALATION SCH (19:49)
[2021-08-21] MEDS: methylPREDNISolone SOD SUCCI 125 MG/2 ML VIAL IV SCH (21:15)
[2021-08-21] MEDS: guaiFENesin 600 MG TABLET.ER PO SCH (21:18)
[2021-08-21] MEDS: SENNOSIDES-DOCUSATE SODIUM 1 EACH TAB PO SCH (21:18)
[2021-08-21] MEDS: SULFAMETHOX-TMP 800-160MG 1 EACH TAB PO SCH (21:21)
[2021-08-21] MEDS: PANTOPRAZOLE 40 MG TABLET PO SCH (21:22)
[2021-08-21] MEDS: FUROSEMIDE 10 MG/ML 4 ML VIAL IV SCH (21:23)
[2021-08-21] MEDS: clonazePAM 0.5 MG TAB PO SCH (21:40)
[2021-08-22] MEDS: CEFEPIME 2 GM in SODIUM CHLORIDE 0.9% 100 ML IVPB SCH ×2 (00:53→12:40)
[2021-08-22] MEDS: methylPREDNISolone SOD SUCCI 125 MG/2 ML VIAL IV SCH ×4 (03:27→21:45)
[2021-08-22] MEDS: BUDESONIDE 1 MG/2 ML NEBU INHALATION SCH ×2 (07:25→19:23)
[2021-08-22] MEDS: IPRATROPIUM-ALBUTEROL 3 ML NEB INHALATION SCH ×4 (07:25→19:23)
[2021-08-22] MEDS: FORMOTEROL FUMARATE 20 MCG/2 ML NEBU INHALATION SCH ×2 (07:25→19:23)
[2021-08-22] MEDS: SENNOSIDES-DOCUSATE SODIUM 1 EACH TAB PO SCH ×3 (09:29→21:44)
[2021-08-22] MEDS: MULTIVITAMINS, THERA 1 EACH TAB PO SCH (09:29)
[2021-08-22] MEDS: guaiFENesin 600 MG TABLET.ER PO SCH ×2 (09:29→21:44)
[2021-08-22] MEDS: FOLIC ACID 1 MG TAB PO SCH (09:30)
[2021-08-22] MEDS: POTASSIUM CHLORIDE ER 20 MEQ TAB.ER PO SCH (09:30)
[2021-08-22] MEDS: PANTOPRAZOLE 40 MG TABLET PO SCH ×2 (09:30→21:46)
[2021-08-22] MEDS: METOPROLOL SUCCINATE (ER) 25 MG TAB.ER.24H PO SCH ×2 (09:30→09:36)
[2021-08-22] MEDS: FUROSEMIDE 10 MG/ML 4 ML VIAL IV SCH ×2 (09:31→21:44)
[2021-08-22] MEDS: SULFAMETHOX-TMP 800-160MG 1 EACH TAB PO SCH ×2 (10:04→22:11)
--- NOTE | 2021-08-22 12:33 | P.PN ---
Subjective Progress Note Date: 08/22/21 Principal diagnosis: Acute on chronic hypoxic respiratory failure This is a 75-year-old male patient who is coming in today to the emergency for another episodes of worsening shortness of breath. He is well-known to me. He is known to have chronic dyspnea and advanced COPD with an FEV1 of 34% of predicted. He is also a case of metastatic adenocarcinoma consistent of a lung primary that was originally diagnosed on 05/10/2020. At that time the patient presented to us with a large pericardial effusion and required drainage and the fluid was consistent with adenocarcinoma. Since then, the patient underwent further investigation including a PET scan that showed uptake within a lymph node in the right supraclavicular area and the hilar area. He was started on systemic chemotherapy using carboplatinum and Alimta. He also received immunotherapy during the course of his treatment. At one point, the patient was receiving immunotherapy and due to concern of his worsening shortness of breath, the immunotherapy has been discontinued and currently is on a Alimta mainte nance. The patient received his last dose of Alimta approximately 5 days ago. He is coming in today with worsening shortness of breath, cough and congestion and hypoxemia. At home is maintained on oxygen at 2 L per minute nasal cannula. Noted during his last hospitalization, the patient is COPD exacerbation his sputum was positive for stenotrophomonas. We ended up putting this patient on Bactrim and sent home on a prednisone burst taper. As the patient completed the course of antibiotics and steroids, his breathing got worse. The chest x-ray from today showing bilateral pleural effusion, worse on the left and there is some vague limited infiltration of the lung bases mainly consistent with some increased pulmonary vascular congestion. His previous echocardiogram was essentially within normal and the patient has a preserved LV function. His most recent computed tomography scan of the chest was done on 07/28/2021 and the patient was found to have advanced COPD with emphysematous changes bilaterally. There was also evidence of bilateral pleural effusion worse on the left and some atelectatic changes in lung bases bilaterally. There was no evidence of any pulmonary embolism. There was progression a T6 compression fracture and an old L1 compression fracture. No hilar masses. No filling defects. No pericardial effusion was seen. For now, the patient is having difficulty in breathing. He is currently on oxygen at 2 L his current pulse ox is 97%. He continues to have a very congested cough. His blood work shows a hemoglobin of 10.6 with a white cell count of 5.7. Platelet count is at 87. Normal coagulation profile. Creatinine is at 1.3. Sodium is at 132. ProBNP level is at 880. The pro calcitonin LEVEL HAS NOT BEEN CHECKED. CPK IS LESS THAN 20. THE REST OF THE ELECTROLYTES INCLUDING CALCIUM AND POTASSIUM ARE WITHIN NORMAL LIMITS. LIVER FUNCTION TESTS ARE ALSO WITHIN NORMAL LIMITS. The patient is seen today 08/22/2021 and follow-up in the emergency department. He is awake and alert in no acute distress. Breathing a bit easier today compared to yesterday. Continues with a loose productive cough. Culture pending. He is maintaining O2 saturations in the mid 90s on 4 L/m per nasal cannula. He is heme hemodynamically stable. He's afebrile. He's been initiated on DuoNeb inhalations, Pulmicort and Perforomist inhalations, IV Solu-Medrol, Mucinex. IV diuretics. In about eczema form of cefepime and Bactrim. Objective - Vital Signs Vital signs: Vital Signs Temp 98.4 F 08/22/21 08:00 Pulse 108 H 08/22/21 11:29 Resp 18 08/22/21 09:45 BP 121/73 08/22/21 08:00 Pulse Ox 96 08/22/21 09:45 Intake & Output 08/21/21 08/22/21 08/22/21 18:59 06:59 18:59 Output Total 550 Balance -550 Weight 70.307 kg Output: Urine 550 Other: # Voids 2 - Exam GENERAL EXAM: Alert, very pleasant 75-year-old gentleman, on 4 L nasal cannula, fairly comfortable in no apparent distress. HEAD: Normocephalic. EYES: Normal reaction of pupils, equal size. NOSE: Clear with pink turbinates. THROAT: No erythema or exudates. NECK: No masses, no JVD. CHEST: No chest wall deformity. LUNGS: Equal air entry with bilateral scattered rhonchi, end expiratory wheeze, diminished. CVS: S1 and S2 normal with no audible murmur, regular rhythm. ABDOMEN: No hepatosplenomegaly, normal bowel sounds, no guarding or rigidity. SPINE: No scoliosis or deformity SKIN: No rashes CENTRAL NERVOUS SYSTEM: No focal deficits, tone is normal in all 4 extremities. EXTREMITIES: There is no peripheral edema. No clubbing, no cyanosis. Peripheral pulses are intact. - Labs CBC & Chem 7: 08/21/21 10:29 08/21/21 10:29 Assessment and Plan Assessment: 1 Acute COPD exacerbation, and the patient is presenting for another episode of worsening shortness of breath, chest congestion and increased difficulty in breathing and hypoxemia and currently is on 4 L of oxygen by nasal cannula. The prior sputum culture was positive for stenotrophomonas maltophilia. The patient will be treated again with combination of of cefepime and Bactrim. Sputum culture pending this admission. 2 Acute on chronic hypoxic respiratory failure secondary to the above, wears 2.5 L nasal cannula at home 3 Mild pulmonary hypertension, normal LV function 4 History of metastatic adenocarcinoma of the lungs, last chemotherapy treatment with Alimta 08/15/2021 5 History of malignant pericardial effusion status post systemic chemotherapy with Alimta and the patient is off immunotherapy 6 Compression fracture of T6 , acute 7 Compression fracture of L1, chronic 8 Severe COPD, stage III 9 History of prostate cancer 10 REM sleep behavior disorder 11 Mild obstructive sleep apnea, not on CPAP at home 12 History of tobacco dependence, quit 04/2020 13 Claustrophobic 14 History of shingles Plan: The patient was seen and evaluated by Dr. Nicole Obtain ultrasound of the chest to rule out significant effusions May require bronchoscopy with therapeutic lavage if no improvement Continue cefepime and Bactrim for now Continue bronchodilators,IV Solu-Medrol, Mucinex Titrate the FiO2 as tolerated Obtain a sputum culture Add a flutter valve We will continue to follow and make further recommendations based on his clinical status I, the cosigning physician, performed a history & physical examination of the patient. Lungs sounds bilateral end expiratory wheeze, scattered rhonchi, diminished. Maintaining good O2 saturations in the 90s on 4 L/m per nasal cannula. I discussed the assessment and plan of care with my nurse Linh chan. I attest to the above note as dictated by her.
[2021-08-22] MEDS: SODIUM CHLORIDE 0.9% 1,000 ML IV SCH (13:40)
--- NOTE | 2021-08-22 13:41 | US ---
EXAMINATION TYPE: US chest DATE OF EXAM: 08/22/2021 COMPARISON: NONE CLINICAL HISTORY: Bilateral effusions. TECHNIQUE: Targeted ultrasound of the posterior lower bilateral hemithoraces EXAM MEASUREMENTS: Right Pleural Effusion pocket size: 4.5 cm Right skin surface to fluid distance: 2.0 cm Left Pleural Effusion pocket size: 5.8 cm Left skin surface to fluid distance: 2.4 cm Right side marked for possible thoracentesis outside the dept. Left side marked for possible thoracentesis outside the dept. Pulmonologists are able to review the images in the patient?s EMR. IMPRESSIONS: As above
--- NOTE | 2021-08-22 13:42 | P.HPIM ---
History of Present Illness Chief Complaint: Shortness of breath Jmua is a pleasant white male,with a known history of COPD and smoking. He was found to have pericardial effsusion last year along with bilateral lower extremity edema . The patient had percutaneous pericardial drainage of 05/10/20 with cytology positive for metastatic adenocarcinoma, consistent with lung or upper GI primary. Patient had a prior history of prostate cancer with a radical prostatectomy in 03/12. PSA was normal recently. He had multiple tests including MRI, PET , colonoscopy failing to show other etiology. He was discontinued on immunotherapy and is been undergoing chemotherapy only. He is currently being followed by and Dr Trejo for the lung cancer, however there is no significant primary tumor found.. He came to the emergency room one day ago with complaints of increasing shortness of breath over the past 2 days. He denies any current chest pains, pressures. Complains of shortness of breath. He denies any nausea or vomiting. Appetite remains poor. He has a known T6 compression fracture along the L1 compression fracture. MAXIMUM TEMPERATURE is 101.3 yesterday afternoon. Oxygen saturation has improved since he's remained in the ER due to bed shortage. Originally 92% currently at 96% on 4 L via nasal cannula. Labs show hemoglobin 10.6. MCV of 111.5. He has marketed macrocytosis. Chemistry showed a sodium 132 and a GFR now of 54. Total protein is 5.7 albumin 3.2. Blood cultures are negative so far 2 Chest x-ray shows bilateral pleural effusions with scattered areas of patchy infiltrate no evidence of overt failure. Dr. Lea is very seen the patient and his recommendations of updrafts IV cefepime and Bactrim along with sputum cultures Lasix IV Solu-Medrol and Perforomist Pulmicort were noted. They're considering bronchoscopy. Review of Systems All systems: negative Past Medical History Past Medical History: Cancer, COPD, GERD/Reflux, Pneumonia Additional Past Medical History / Comment(s): 05/10/20 pericardial effusion with early cardiac tamponade/acute respiratory failure with pericardiocentesis/pneumonia/bilateral leg edema, cancer pericardial sac/chest lymph nodes per pt/spouse-receiving chemotherapy-last time approximately 6 weeks ago/on hold for recent hernia surgery/then URI, past vertigo when first standing/syncope pt states d/t electrolyte disturbance, anemia with transfusions, lung nodules being monitored and thought possibly scarring from previous pneumonia, prostate cancer with surgery, skin cancer with removals, gastritis, hiatal hernia, severe clausterphobia, 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 and has had past falls out of bed, bilateral ALUTIIQ and tinnitis, past alcoholism per pt but quit drinking 31 plus yrs ago, shingles last week History of Any Multi-Drug Resistant Organisms: None Reported Past Surgical History: Joint Replacement, Prostate Surgery Additional Past Surgical History / Comment(s): 03/12/21 inguinal hernia surgery, 05/18/20 EGD, colonoscopy, robot assisted laparoscopic prostatectomy with bilateral lymph node dissection, skin cancer removals, rt hip replacement Past Anesthesia/Blood Transfusion Reactions: No Reported Reaction Additional Past Anesthesia/Blood Transfusion Reaction / Comment(s): Claustr ophobic. Past Psychological History: No Psychological Hx Reported Smoking Status: Former smoker Past Alcohol Use History: None Reported Past Drug Use History: None Reported - Past Family History Mother Family Medical History: Cancer Additional Family Medical History / Comment(s): breast cancer, Etoh abuse. Father Family Medical History: COPD, Dementia, Musculoskeletal Disorder, Neurologic Disorder Additional Family Medical History / Comment(s): parkinson's, ETOH abuse Medications and Allergies Home Medications Medication Instructions Recorded Confirmed Type Umeclidinium Brm/Vilanterol Tr 1 puff INHALATION RT-DAILY 03/01/19 08/21/21 History [Anoro Ellipta 62.5-25 Mcg INH] clonazePAM [KlonoPIN] 0.5 mg PO HS 03/01/19 08/21/21 History Albuterol Nebulized [Ventolin 2.5 mg INHALATION RT-QID PRN 05/09/20 08/21/21 History Nebulized] Folic Acid 2 mg PO DAILY 07/13/20 08/21/21 History Multivitamins, Thera [Multivitamin 1 tab PO DAILY 03/07/21 08/21/21 History (formulary)] Pantoprazole [Protonix] 40 mg PO BID 03/07/21 08/21/21 History Albuterol Inhaler [Ventolin Hfa 2 puff INHALATION RT-QID PRN 04/15/21 08/21/21 History Inhaler] Potassium Chloride ER [K-Dur 20] 20 meq PO DAILY 06/29/21 08/21/21 History Acetaminophen Tab [Tylenol] 650 mg PO Q6HR PRN tab 07/04/21 08/21/21 Rx Acetaminophen-Codeine 300-30mg 1 - 2 tab PO Q6H PRN 07/28/21 08/21/21 History [Tylenol w/codeine #3] Furosemide [Lasix] 40 mg PO BID 07/28/21 08/21/21 History Metoprolol Succinate (ER) [Toprol 25 mg PO DAILY #30 tablet 08/03/21 08/21/21 Rx XL] predniSONE 30 mg PO DAILY #30 tab 08/03/21 08/21/21 Rx Fluticasone Nasal [place] [Flonase 1 spr EA NOSTRIL BID PRN 08/21/21 08/21/21 History Nasal [place]] Sennosides-Docusate Sodium 2 tab PO BID 08/21/21 08/21/21 History [Senokot-S] Sulfamethox-Tmp 800-160Mg [Bactrim 1 tab PO DAILY 08/21/21 08/21/21 History DS 800-160 mg] Allergies Allergy/AdvReac Type Severity Reaction Status Date / Time tetracycline Allergy Unknown "Fuzzy Verified 08/21/21 11:43 headed" Physical Exam Vitals: Vital Signs Temp Pulse Pulse Resp BP BP Pulse Ox 08/22/21 11:29 108 H 08/22/21 11:17 100 08/22/21 09:45 90 18 96 08/22/21 08:00 98.4 F 101 H 20 121/73 97 08/22/21 07:46 102 H 08/22/21 07:35 112 H 08/22/21 07:25 104 H 08/22/21 06:00 79 20 95 08/22/21 05:36 22 08/22/21 02:00 20 08/22/21 00:00 99.4 F 100 22 130/94 94 L 08/21/21 21:20 116 H 22 124/76 95 08/21/21 20:15 112 H 08/21/21 20:02 102 H 08/21/21 20:01 102 H 08/21/21 19:49 99 08/21/21 19:37 99 24 122/72 93 L 08/21/21 16:29 100.7 F H 99 20 117/60 96 08/21/21 15:22 112 H 08/21/21 15:14 101.3 F H 106 H 23 125/77 96 08/21/21 15:06 103 H Intake and Output 08/21/21 08/22/21 08/22/21 22:59 06:59 14:59 Output Total 1050 Balance -1050 Output: Urine 1050 Other: # Voids 2 GENERAL: Petite, thin and in no acute distress. HEAD: Atraumatic, normocephalic. EYES: Pupils equal round and reactive to light, extraocular movements intact, sclera anicteric, conjunctiva are normal. ENT:nares patent, oropharynx clear without exudates. Moist mucous membranes. NECK: Normal range of motion, supple without lymphadenopathy or JVD, no thyromegaly LUNGS: Breath sounds significantly coarse, worse on the right than the left this time. Decreased air exchange on the left side. HEART: Regular rate and rhythm without murmurs, rubs or gallops.S1S2 Normal ABDOMEN: Soft, nontender, normoactive bowel sounds. No guarding, no rebound. No masses appreciated. EXTREMITIES: Normal range of motion, no pitting or edema. No clubbing or cyanosis. NEUROLOGICAL: Cranial nerves II through XII grossly intact. Normal speech, normal gait. PSYCH: Normal mood, normal affect. SKIN: Warm, Dry, normal turgor, mild blanchable erythema noted to his lower extremities. Results CBC & Chem 7: 08/21/21 10:29 08/21/21 10:29 Labs: Microbiology - Last 24 Hours (Table) 08/21/21 10:02 Blood Culture - Preliminary Blood No Growth after 24 hours 08/21/21 10:17 Blood Culture - Preliminary Blood No Growth after 24 hours Chest x-ray: report reviewed Thrombosis Risk Factor Assmnt - DVT/VTE Prophylaxis DVT/VTE Prophylaxis: Mechanical Prophylaxis ordered Assessment and Plan (1) Bilateral pleural effusion Current Visit: Yes Status: Acute Code(s): J90 - PLEURAL EFFUSION, NOT ELSEWHERE CLASSIFIED SNOMED Code(s): 866953380 (2) COPD with exacerbation Current Visit: Yes Status: Acute Code(s): J44.1 - CHRONIC OBSTRUCTIVE PULMONARY DISEASE W (ACUTE) EXACERBATION SNOMED Code(s): 139005476 (3) Febrile illness, acute Current Visit: Yes Status: Acute Code(s): R50.9 - FEVER, UNSPECIFIED SNOMED Code(s): 427639904 (4) Lung cancer Current Visit: Yes Status: Acute Code(s): C34.90 - MALIGNANT NEOPLASM OF UNSP PART OF UNSP BRONCHUS OR LUNG SNOMED Code(s): 517350963 (5) Acute respiratory failure with hypoxia Current Visit: No Status: Acute Code(s): J96.01 - ACUTE RESPIRATORY FAILURE WITH HYPOXIA SNOMED Code(s): 04900766 (6) Anemia Current Visit: No Status: Acute Code(s): D64.9 - ANEMIA, UNSPECIFIED SNOMED Code(s): 354429756 (7) Compression fracture of T6 vertebra Current Visit: No Status: Acute Code(s): S22.050A - WEDGE COMPRESSION FRACTURE OF T5-T6 VERTEBRA, INIT SNOMED Code(s): 306993377 (8) History of nicotine dependence Current Visit: No Status: Acute Code(s): Z87.891 - PERSONAL HISTORY OF NICOTINE DEPENDENCE SNOMED Code(s): 509310809 (9) History of prostate cancer Current Visit: No Status: Acute Code(s): Z85.46 - PERSONAL HISTORY OF MALIGNANT NEOPLASM OF PROSTATE SNOMED Code(s): 611092571 (10) Leukocytosis Current Visit: No Status: Acute Code(s): D72.829 - ELEVATED WHITE BLOOD CELL COUNT, UNSPECIFIED SNOMED Code(s): 833330373 (11) Compression fracture of L1 lumbar vertebra Current Visit: No Status: Chronic Code(s): S32.010A - WEDGE COMPRESSION FRACTURE OF FIRST LUMBAR VERTEBRA, INIT SNOMED Code(s): 641117971 Plan: He will continue on DuoNeb updrafts along with performance test. He'll continue cefepime and Bactrim as ordered. pantoprazole for GI prophylaxis. Continue Solu-Medrol, metoprolol, guaifenesin, furosemide, fluticasone, Klonopin. Repeat labs in a.m., Weight on further recommendations from pulmonology. He'll be reevaluated next 24 hours.
[2021-08-22] MEDS: clonazePAM 0.5 MG TAB PO SCH (21:43)
[2021-08-22] MEDS: LIDOCAINE 5% PATCH TOPICAL PRN (21:53)
[2021-08-22] MEDS: Acetaminophen-Codeine 300-30mg TAB PO PRN (22:00)
[2021-08-23] MEDS: CEFEPIME 2 GM in SODIUM CHLORIDE 0.9% 100 ML IVPB SCH ×3 (00:15→23:54)
[2021-08-23] MEDS: methylPREDNISolone SOD SUCCI 125 MG/2 ML VIAL IV SCH ×4 (03:05→20:32)
[2021-08-23] MEDS: SENNOSIDES-DOCUSATE SODIUM 1 EACH TAB PO SCH ×2 (07:38→20:31)
[2021-08-23] MEDS: PANTOPRAZOLE 40 MG TABLET PO SCH ×2 (07:38→20:32)
[2021-08-23] MEDS: POTASSIUM CHLORIDE ER 20 MEQ TAB.ER PO SCH (07:38)
[2021-08-23] MEDS: guaiFENesin 600 MG TABLET.ER PO SCH ×2 (07:39→20:31)
[2021-08-23] MEDS: FOLIC ACID 1 MG TAB PO SCH (07:39)
[2021-08-23] MEDS: MULTIVITAMINS, THERA 1 EACH TAB PO SCH (07:39)
[2021-08-23] MEDS: SULFAMETHOX-TMP 800-160MG 1 EACH TAB PO SCH ×2 (07:40→20:31)
[2021-08-23] MEDS: FUROSEMIDE 10 MG/ML 4 ML VIAL IV SCH ×2 (07:40→20:32)
[2021-08-23] MEDS: METOPROLOL SUCCINATE (ER) 25 MG TAB.ER.24H PO SCH (07:41)
[2021-08-23 07:44] LABS: African American GFR (CKD) 67 (>60 ml/min/1.73 sqM); Anion Gap 5 mmol/L; Blood Urea Nitrogen 41 mg/dL (9-20); Carbon Dioxide 36 mmol/L (22-30); Chloride 88 mmol/L (98-107); Glucose 186 mg/dL (74-99); Non-African American GFR(CKD) 58 (>60 ml/min/1.73 sqM); Potassium 3.9 mmol/L (3.5-5.1); Sodium 129 mmol/L (137-145)
[2021-08-23 07:45] LABS: Calcium 8.3 mg/dL (8.4-10.2)
[2021-08-23] MEDS: FORMOTEROL FUMARATE 20 MCG/2 ML NEBU INHALATION SCH ×2 (08:00→19:46)
[2021-08-23] MEDS: BUDESONIDE 1 MG/2 ML NEBU INHALATION SCH ×2 (08:00→19:46)
[2021-08-23] MEDS: IPRATROPIUM-ALBUTEROL 3 ML NEB INHALATION SCH ×4 (08:00→19:46)
[2021-08-23 10:17] LABS: Basophils # (M) 0 X 10*3/uL (0.00-0.10); Eosinophils # (M) 0.13 X 10*3/uL (0.04-0.35); HCT 25.2 % (39.6-50.0); Lymphocytes # (M) 0 X 10*3/uL (0.90-5.00); MCH 35.2 pg (27.0-32.0); MCHC 31.7 g/dL (32.0-37.0); Macrocytosis (M) 2+; Mean Platelet Volume 11.4 fL (9.5-12.2); Metamyelocytes % 1 % (0-0); Monocytes # (M) 0.25 X 10*3/uL (0.20-1.00); Myelocytes % 1 % (0-0); Neutrophils # (M) 5.85 X 10*3/uL (2.00-8.90); Neutrophils % (M) 92 %; Platelet Count 37 X 10*3/uL (140-440); RBC 2.27 X 10*6/uL (4.40-5.60); RDW 15.4 % (11.5-14.5); WBC 6.36 X 10*3/uL (4.50-10.00)
--- NOTE | 2021-08-23 10:49 | P.PN ---
Rafat curtis is a pleasant white male,with a known history of COPD and smoking. He was found to have pericardial effsusion last year along with bilateral lower extremity edema . The patient had percutaneous pericardial drainage of 05/10/20 with cytology positive for metastatic adenocarcinoma, consistent with lung or upper GI primary. Patient had a prior history of prostate cancer with a radical prostatectomy in 03/12. PSA was normal recently. He had multiple tests including MRI, PET , colonoscopy failing to show other etiology. He was discontinued on immunotherapy and is been undergoing chemotherapy only. He is currently being followed by and Dr Trejo for the lung cancer, however there is no significant primary tumor found.. He came to the emergency room one day ago with complaints of increasing shortness of breath over the past 2 days. He denies any current chest pains, pressures. Complains of shortness of breath. He denies any nausea or vomiting. Appetite remains poor. He has a known T6 compression fracture along the L1 compression fracture. MAXIMUM TEMPERATURE is 101.3 yesterday afternoon. Oxygen saturation has improved since he's remained in the ER due to bed shortage. Originally 92% currently at 96% on 4 L via nasal cannula. Labs show hemoglobin 10.6. MCV of 111.5. He has marketed macrocytosis. Chemistry showed a sodium 132 and a GFR now of 54. Total protein is 5.7 albumin 3.2. Blood cultures are negative so far 2 Chest x-ray shows bilateral pleural effusions with scattered areas of patchy infiltrate no evidence of overt failure. Dr. Lea is very seen the patient and his recommendations of updrafts IV cefepime and Bactrim along with sputum cultures Lasix IV Solu-Medrol and Perf oromist Pulmicort were noted. They're considering bronchoscopy 08/23/2021: Patient denies any chest pains, pressures, nausea or vomiting. Shortness of breath is improved. He remains on 4 L O2 and pulse oximetry is running 93%. Heart rate is minimally tachycardic at 113. MAXIMUM TEMPERATURE is 99.3F Labs her studies show his sodium is 129 BUN 41 creatinine 1.23 GFR is 58. An easy him is 2.0. Ultrasound of the chest was done marking both right and left lungs for possible thoracentesis with Dr. Lea. Pulmonology is following. The recommendations were reviewed today. Patient remains on Pulmicort, fluticasone, Perforomist, DuoNeb updrafts, Solu- Medrol, cefepime antibiotic coverage Objective - Vital Signs Vital signs: Vital Signs Temp 98.4 F 08/23/21 08:00 Pulse 113 H 08/23/21 08:23 Resp 18 08/23/21 08:00 BP 124/52 08/23/21 08:00 Pulse Ox 93 L 08/23/21 08:01 Intake & Output 08/22/21 08/23/21 08/23/21 18:59 06:59 18:59 Intake Total 240 Output Total 1350 540 Balance -1350 -300 Weight 70.307 kg Intake: Oral 240 Output: Urine 1350 540 Other: Voiding Method Urinal Urinal # Voids 2 1 - Exam GENERAL: Petite, thin and in no acute distress. NECK: Normal range of motion, supple without lymphadenopathy or JVD, no thyromegaly LUNGS: Breath sounds significantly coarse, worse on the right than the left this time. Decreased air exchange on the left side. Minimal improvement from yester day. HEART: Regular rate and rhythm without murmurs, rubs or gallops.S1S2 Normal ABDOMEN: Soft, nontender, normoactive bowel sounds. No guarding, no rebound. No masses appreciated. EXTREMITIES: Normal range of motion, no pitting or edema. No clubbing or cyanosis. NEUROLOGICAL: Cranial nerves II through XII grossly intact. Normal speech, normal gait. PSYCH: Normal mood, normal affect. SKIN: Warm, Dry, normal turgor, mild blanchable erythema noted to his lower extremities. - Labs CBC & Chem 7: 08/21/21 10:29 08/23/21 06:21 Labs: Abnormal Lab Results - Last 24 Hours (Table) 08/21/21 08/23/21 Range/Units 10: 06:21 Sodium 129 L (137-145) mmol/L Chloride 88 L (98-107) mmol/L Carbon Dioxide 36 H (22-30) mmol/L BUN 41 H (9-20) mg/dL Glucose 186 H (74-99) mg/dL Calcium 8.3 L (8.4-10.2) mg/dL Procalcitonin 0.24 H (0.02-0.09) ng/mL Microbiology - Last 24 Hours (Table) 08/22/21 11:24 Gram Stain - Preliminary Sputum Sputum Culture - Preliminary 08/21/21 10:02 Blood Culture - Preliminary Blood No Growth after 24 hours 08/21/21 10:17 Blood Culture - Preliminary Blood No Growth after 24 hours Assessment and Plan (1) Acute respiratory failure with hypoxia Current Visit: No Status: Acute Code(s): J96.01 - ACUTE RESPIRATORY FAILURE WITH HYPOXIA SNOMED Code(s): 56061805 (2) Bilateral pleural effusion Current Visit: Yes Status: Acute Code(s): J90 - PLEURAL EFFUSION, NOT ELSEWHERE CLASSIFIED SNOMED Code(s): 583534018 (3) COPD with exacerbation Current Visit: Yes Status: Acute Code(s): J44.1 - CHRONIC OBSTRUCTIVE PULMONARY DISEASE W (ACUTE) EXACERBATION SNOMED Code(s): 662287901 (4) Febrile illness, acute Current Visit: Yes Status: Acute Code(s): R50.9 - FEVER, UNSPECIFIED SNOMED Code(s): 301719855 (5) Lung cancer Current Visit: Yes Status: Acute Code(s): C34.90 - MALIGNANT NEOPLASM OF UNSP PART OF UNSP BRONCHUS OR LUNG SNOMED Code(s): 756630395 (6) Anemia Current Visit: No Status: Acute Code(s): D64.9 - ANEMIA, UNSPECIFIED SNOMED Code(s): 358591476 (7) Compression fracture of T6 vertebra Current Visit: No Status: Acute Code(s): S22.050A - WEDGE COMPRESSION FRACTURE OF T5-T6 VERTEBRA, INIT SNOMED Code(s): 034908803 (8) History of nicotine dependence Current Visit: No Status: Acute Code(s): Z87.891 - PERSONAL HISTORY OF NICOTINE DEPENDENCE SNOMED Code(s): 465658238 (9) History of prostate cancer Current Visit: No Status: Acute Code(s): Z85.46 - PERSONAL HISTORY OF MALIGNANT NEOPLASM OF PROSTATE SNOMED Code(s): 424722307 (10) Leukocytosis Current Visit: No Status: Acute Code(s): D72.829 - ELEVATED WHITE BLOOD CELL COUNT, UNSPECIFIED SNOMED Code(s): 178024213 (11) Compression fracture of L1 lumbar vertebra Current Visit: No Status: Chronic Code(s): S32.010A - WEDGE COMPRESSION FRACTURE OF FIRST LUMBAR VERTEBRA, INIT SNOMED Code(s): 486652855 (12) Hyponatremia Current Visit: Yes Status: Acute Code(s): E87.1 - HYPO-OSMOLALITY AND HYPONATREMIA SNOMED Code(s): 83096124 Plan: He will continue on DuoNeb updrafts along with performance test. He'll continue cefepime and Bactrim as ordered. pantoprazole for GI prophylaxis. Continue Solu-Medrol, metoprolol, guaifenesin, furosemide, fluticasone, Klonopin. Repeat labs in a.m., Weight on further recommendations from pulmonology. Possible bronchoscopy and thoracentesis. He'll be reevaluated next 24 hours.
[2021-08-23] MEDS: SODIUM CHLORIDE 0.9% 1,000 ML IV SCH (12:02)
--- NOTE | 2021-08-23 12:57 | US ---
EXAMINATION TYPE: US venous doppler duplex UE RT DATE OF EXAM: 08/23/2021 COMPARISON: NONE CLINICAL HISTORY: unilateral swelling, new onset. IV right cephalic v SIDE PERFORMED: Right Arm Grayscale, color doppler, spectral doppler imaging performed of the deep veins of the upper extremiti es. There is normal flow, compressibility and vascular waveforms. Visualized right internal jugular vein, subclavian vein, axillary vein, brachial and basilic veins, c ephalic, radial, ulnar veins are within normal limits. Cephalic vein shows IV catheter. Right Arm: Negative for DVT There is normal flow, compressibility and vascular waveforms. IMPRESSION: No evidence of deep venous thrombosis in the right upper extremity
--- NOTE | 2021-08-23 15:13 | P.PN ---
Subjective Progress Note Date: 08/23/21 This is a 75-year-old male patient who is coming in today to the emergency for another episodes of worsening shortness of breath. He is well-known to me. He is known to have chronic dyspnea and advanced COPD with an FEV1 of 34% of predicted. He is also a case of metastatic adenocarcinoma consistent of a lung primary that was originally diagnosed on 05/10/2020. At that time the patient presented to us with a large pericardial effusion and required drainage and the fluid was consistent with adenocarcinoma. Since then, the patient underwent further investigation including a PET scan that showed uptake within a lymph node in the right supraclavicular area and the hilar area. He was started on s ystemic chemotherapy using carboplatinum and Alimta. He also received immunotherapy during the course of his treatment. At one point, the patient was receiving immunotherapy and due to concern of his worsening shortness of breath, the immunotherapy has been discontinued and currently is on a Alimta maintenance. The patient received his last dose of Alimta approximately 5 days ago. He is coming in today with worsening shortness of breath, cough and congestion and hypoxemia. At home is maintained on oxygen at 2 L per minute nasal cannula. Noted during his last hospitalization, the patient is COPD exacerbation his sputum was positive for stenotrophomonas. We ended up putting this patient on Bactrim and sent home on a prednisone burst taper. As the patient completed the course of antibiotics and steroids, his breathing got worse. The chest x-ray from today showing bilateral pleural effusion, worse on the left and there is some vague limited infiltration of the lung bases mainly consistent with some increased pulmonary vascular congestion. His previous echocardiogram was essentially within normal and the patient has a preserved LV function. His most recent computed tomography scan of the chest was done on 07/28/2021 and the patient was found to have advanced COPD with emphysematous changes bilaterally. There was also evidence of bilateral pleural effusion worse on the left and some atelectatic changes in lung bases bilaterally. There was no evidence of any pulmonary embolism. There was progression a T6 compression fracture and an old L1 compression fracture. No hilar masses. No filling defects. No pericardial effusion was seen. For now, the patient is having difficulty in breathing. He is currently on oxygen at 2 L his current pulse ox is 97%. He continues to have a very congested cough. His blood work shows a hemoglobin of 10.6 with a white cell count of 5.7. Platelet count is at 87. Normal coagulation profile. Creatinine is at 1.3. Sodium is at 132. ProBNP level is at 880. The pro calcitonin LEVEL HAS NOT BEEN CHECKED. CPK IS LESS THAN 20. THE REST OF THE ELECTROLYTES INCLUDING CALCIUM AND POTASSIUM ARE WITHIN NORMAL LIMITS. LIVER FUNCTION TESTS ARE ALSO WITHIN NORMAL LIMITS. The patient is seen today 08/22/2021 and follow-up in the emergency department. He is awake and alert in no acute distress. Breathing a bit easier today co mpared to yesterday. Continues with a loose productive cough. Culture pending. He is maintaining O2 saturations in the mid 90s on 4 L/m per nasal cannula. He is heme hemodynamically stable. He's afebrile. He's been initiated on DuoNeb inhalations, Pulmicort and Perforomist inhalations, IV Solu-Medrol, Mucinex. IV diuretics. In about eczema form of cefepime and Bactrim. 08/23/2021, the patient remains bronchospastic and wheezy and short of breath and he continues to have a congested cough. Not producing a lot of sputum. Nevertheless, his cough is quite congested. He was able to give me a sputum sample milligrams is positive for many gram-negative bacilli, final culture are still pending.The patient remains on a combination of cefepime and Bactrim. He is on Pulmicort and Perforomist nebulized treatments twice a day and he is also on IV Solu-Medrol. He remains on Lasix. There are bilateral pleural effusion. The pleural fluid marking was done via ultrasound. Objective - Vital Signs Vital signs: Vital Signs Temp 99.5 F 08/23/21 13:23 Pulse 110 H 08/23/21 13:23 Resp 20 08/23/21 13:23 BP 138/64 08/23/21 13:23 Pulse Ox 92 L 08/23/21 13:23 Intake & Output 08/22/21 08/23/21 08/23/21 18:59 06:59 18:59 Intake Total 240 Output Total 1350 540 Balance -1350 -300 Weight 70.307 kg Intake: Oral 240 Output: Urine 1350 540 Other: Voiding Method Urinal Urinal # Voids 2 1 - Exam GENERAL EXAM: Alert, very pleasant 75-year-old gentleman, on 2 L nasal cannula, fairly comfortable in no apparent distress. HEAD: Normocephalic. EYES: Normal reaction of pupils, equal size. NOSE: Clear with pink turbinates. THROAT: No erythema or exudates. NECK: No masses, no JVD. CHEST: No chest wall deformity. LUNGS: Equal air entry with bilateral scattered rhonchi, end expiratory wheeze, diminished. CVS: S1 and S2 normal with no audible murmur, regular rhythm. ABDOMEN: No hepatosplenomegaly, normal bowel sounds, no guarding or rigidity. SPINE: No scoliosis or deformity SKIN: No rashes CENTRAL NERVOUS SYSTEM: No focal deficits, tone is normal in all 4 extremities. EXTREMITIES: There is no peripheral edema. No clubbing, no cyanosis. Peripheral pulses are intact. - Labs CBC & Chem 7: 08/23/21 06:24 08/23/21 06:21 Labs: Abnormal Lab Results - Last 24 Hours (Table) 08/21/21 08/23/21 08/23/21 Range/Units 10:29 06:21 06:24 RBC 2.27 L (4.40-5.60) X 10*6/uL Hgb 8.0 L (13.0-17.0) g/dL Hct 25.2 L (39.6-50.0) % MCV 111.0 H (80.0-97.0) fL MCH 35.2 H (27.0-32.0) pg MCHC 31.7 L (32.0-37.0) g/dL RDW 15.4 H (11.5-14.5) % Plt Count 37 L (140-440) X 10*3/uL Plt Count Comment DECREASED A Metamyelocytes % 1 H (0-0) % Myelocytes % 1 H (0-0) % Lymphocytes # (Manual) 0 L (0.90-5.00) X 10*3/uL Immature Plt Fraction 9.4 H (1.1-6.1) % Sodium 129 L (137-145) mmol/L Chloride 88 L (98-107) mmol/L Carbon Dioxide 36 H (22-30) mmol/L BUN 41 H (9-20) mg/dL Glucose 186 H (74-99) mg/dL Calcium 8.3 L (8.4-10.2) mg/dL Procalcitonin 0.24 H (0.02-0.09) ng/mL Microbiology - Last 24 Hours (Table) 08/21/21 10:02 Blood Culture - Preliminary Blood No Growth after 48 hours 08/21/21 10:17 Blood Culture - Preliminary Blood No Growth after 48 hours 08/22/21 11:24 Gram Stain - Preliminary Sputum Sputum Culture - Preliminary Assessment and Plan Plan: 1 Acute COPD exacerbation, and the patient is presenting for another episode of worsening shortness of breath, chest congestion and increased difficulty in breathing and hypoxemia and currently is on 2 L of oxygen by nasal cannula. The prior sputum culture was positive for stenotrophomonas maltophilia. The patient will be treated again with combination of of cefepime and Bactrim. He continues to bronchospastic and wheezy limited improvement over the past 24 hours. We'll continue the steroids and bronchodilators and the same antibiotic coverage for now 2 Acute on chronic hypoxic respiratory failure secondary to the above, wears 2.5 L nasal cannula at home 3 Mild pulmonary hypertension, normal LV function 4 History of metastatic adenocarcinoma of the lungs, last chemotherapy treatment 06/28/2021 5 History of malignant pericardial effusion status post systemic chemotherapy with Alimta and the patient is off immunotherapy 6 Compression fracture of T6 , acute 7 Compression fracture of L1, chronic 8 Severe COPD, stage III 9 History of prostate cancer 10 REM sleep behavior disorder 11 Mild obstructive sleep apnea, not on CPAP at home 12 History of tobacco dependence, quit 04/2020 13 Claustrophobic 14 History of shingles 15 bilateral pleural effusions Plan Restart the patient on DuoNeb nebulized treatments around the clock Check pro calcitonin level, was low at 0.2 With the patient IV cefepime and Bactrim orally Collect a sputum Gram stain and culture, is growing a gram-negative bacillus and final cultures and sensitivities are still pending Switch this patient IV Lasix 40 mg every 12 hours Oxygen to maintain saturation above 90% Mucinex DM twice a day Stop Anoro and switch this patient a combination of Perforomist and Pulmicort nebulized twice a day IV Solu Medrol 60 g every 6 hours Check COVID-19 nasal swab Possible bronchoscopy within next 24-48 hours depending on his progress.
--- NOTE | 2021-08-23 16:26 | P.CONS ---
History of Present Illness - Reason for Consult Consult date: 08/23/21 lung adenocarcinoma Requesting physician: Kaveh Garcia - Chief Complaint SOB, cough - History of Present Illness Pt is currently admitted with respiratory c/o, cough, thick sputum, white/yellow, audible wheezing, progressive weak and 08/16/21 cycle 14 with GCSF on 08/17/21. Oncology History Mr. Lewis was initially seen in consult at [facility] 05/16/20, presenting with progres sive shortness of breath, x-ray showed new small pleural effusions. Patient has known COPD and smoking. Also noted to have bilateral lower extremity edema with echo showing LVEF 40%-45% with large pericardial effusion. Percutaneous pericardial drainage 05/10/20, cytology positive for metastatic adenocarcinoma, consistent with lung or upper GI primary. Patient had a prior history of prostate cancer with a radical prostatectomy in 03/12. PSA was normal. EGD showed some irregular areas on the duodenum and distal esophagus, biopsy negative for malignancy. MRI of the abdomen did not show any abnormality in the liver or pancreas. Clinically it was it was therefore felt to be reasonable to treated as a lung primary. NGS was negative. Staging PET showed uptake only in the mediastinal node, some uptake in non-enlarged right supraclavicular and hilar nodes. 1st OV on 06/06/20, started on treatment with carboplatin, Alimta, Keytruda with cycle 1 on 06/16/20. Admit after cycle 2 with marked weakness and syncopal episode-dehydration 2/2/ diarrhea, needed GCSF support for now ANC. Had cycle 3 with dose reduction and addition of GCSF. After cycle 4, he again had episodes of diarrhea lasting about 3-4 days with some dizziness and required hydration in the office. Changed to Alimta, keytruda maintenance 09/07/20. Pt has been having frequent COPD exacerbations requiring hospitalization. Immunotherapy was discontinued 05/24/21, suspecting that was exacerbating pt symptoms. Review of Systems 14 point ROS is neg except as stated in HPI Past Medical History Past Medical History: Cancer, COPD, GERD/Reflux, Pneumonia Additional Past Medical History / Comment(s): 05/10/20 pericardial effusion with early cardiac tamponade/acute respiratory failure with pericardiocentesis/pneumonia/bilateral leg edema, cancer pericardial sac/chest lymph nodes per pt/spouse-receiving chemotherapy-last time approximately 6 weeks ago/on hold for recent hernia surgery/then URI, past vertigo when first s tanding/syncope pt states d/t electrolyte disturbance, anemia with transfusions, lung nodules being monitored and thought possibly scarring from previous pneumonia, prostate cancer with surgery, skin cancer with removals, gastritis, hiatal hernia, severe clausterphobia, 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 and has had past falls out of bed, bilateral [place] and tinnitis, past alcoholism per pt but quit drinking 31 plus yrs ago, shingles last week History of Any Multi-Drug Resistant Organisms: None Reported Past Surgical History: Joint Replacement, Prostate Surgery Additional Past Surgical History / Comment(s): 03/12/21 inguinal hernia surgery, 05/18/20 EGD, colonoscopy, robot assisted laparoscopic prostatectomy with lilly ateral lymph node dissection, skin cancer removals, rt hip replacement Past Anesthesia/Blood Transfusion Reactions: No Reported Reaction Additional Past Anesthesia/Blood Transfusion Reaction / Comm: Claustrophobic. Past Psychological History: No Psychological Hx Reported Smoking Status: Former smoker Past Alcohol Use History: None Reported Past Drug Use History: None Reported - Past Family History Mother Family Medical History: Cancer Additional Family Medical History / Comment(s): breast cancer, Etoh abuse. Father Family Medical History: COPD, Dementia, Musculoskeletal Disorder, Neurologic Disorder Additional Family Medical History / Comment(s): parkinson's, ETOH abuse Medications and Allergies Home Medications Medication Instructions Recorded Confirmed Type Umeclidinium Brm/Vilanterol Tr 1 puff INHALATION RT-DAILY 03/01/19 08/21/21 History [Anoro Ellipta 62.5-25 Mcg INH] clonazePAM [KlonoPIN] 0.5 mg PO HS 03/01/19 08/21/21 History Albuterol Nebulized [Ventolin 2.5 mg INHALATION RT-QID PRN 05/09/20 08/21/21 History Nebulized] Folic Acid 2 mg PO DAILY 07/13/20 08/21/21 History Multivitamins, Thera [Multivitamin 1 tab PO DAILY 03/07/21 08/21/21 History (formulary)] Pantoprazole [Protonix] 40 mg PO BID 03/07/21 08/21/21 History Albuterol Inhaler [Ventolin Hfa 2 puff INHALATION RT-QID PRN 04/15/21 08/21/21 History Inhaler] Potassium Chloride ER [K-Dur 20] 20 meq PO DAILY 06/29/21 08/21/21 History Acetaminophen Tab [Tylenol] 650 mg PO Q6HR PRN tab 07/04/21 08/21/21 Rx Acetaminophen-Codeine 300-30mg 1 - 2 tab PO Q6H PRN 07/28/21 08/21/21 History [Tylenol w/codeine #3] Furosemide [Lasix] 40 mg PO BID 07/28/21 08/21/21 History Metoprolol Succinate (ER) [Toprol 25 mg PO DAILY #30 tablet 08/03/21 08/21/21 Rx XL] predniSONE 30 mg PO DAILY #30 tab 08/03/21 08/21/21 Rx Fluticasone Nasal [place] [Flonase 1 spr EA NOSTRIL BID PRN 08/21/21 08/21/21 History Nasal [place]] Sennosides-Docusate Sodium 2 tab PO BID 08/21/21 08/21/21 History [Senokot-S] Sulfamethox-Tmp 800-160Mg [Bactrim 1 tab PO DAILY 08/21/21 08/21/21 History DS 800-160 mg] Allergies Allergy/AdvReac Type Severity Reaction Status Date / Time tetracycline Allergy Unknown "Fuzzy Verified 08/21/21 11:43 headed" Physical Exam Vitals: Vital Signs Temp Pulse Pulse Resp BP Pulse Ox 08/23/21 08:23 113 H 08/23/21 08:15 113 H 08/23/21 08:01 113 H 93 L 08/23/21 03:24 97.6 F 64 18 113/63 95 08/22/21 19:55 74 08/22/21 19:45 102 H 08/22/21 19:40 98.1 F 74 17 121/71 95 08/22/21 19:34 100 08/22/21 19:23 100 08/22/21 15:23 98 08/22/21 15:10 100 08/22/21 15:01 99.3 F 102 H 20 138/74 95 08/22/21 14:00 98.6 F 93 19 124/79 95 08/22/21 11:29 108 H 08/22/21 11:17 100 08/22/21 09:45 90 18 96 Intake and Output 08/22/21 08/23/21 08/23/21 22:59 06:59 14:59 Intake Total 240 Output Total 520 320 Balance -520 -80 Intake: Oral 240 Output: Urine 520 320 Other: Voiding Method Urinal # Voids 1 1 - Constitutional General appearance: average body habitus, cooperative, mild distress - EENT Eyes: anicteric sclerae, EOMI ENT: hearing grossly normal, normal oropharynx - Neck rt neck swelling Neck: no lymphadenopathy - Respiratory Respiratory: left: diminished (base), bilateral: wheezing - Cardiovascular rt arm swelling Rhythm: regular Heart sounds: normal: S1, S2 Abnormal Heart Sounds: no systolic murmur, no diastolic murmur, no rub, no S3 Gallop, no S4 Gallop, no click, no other leg Peripheral Edema: bilateral: None - Gastrointestinal General gastrointestinal: no absent bowel sounds, no decreased bowel sounds, no distended, no hepatomegaly, no hyperactive bowel sounds, normal bowel sounds, no organomegaly, no rigid, no scaphoid, soft, no splenomegaly, no tenderness, no umbilical hernia, no ventral hernia - Integumentary Integumentary: normal - Neurologic Neurologic: CNII-XII intact - Musculoskeletal Musculoskeletal: generalized weakness, strength equal bilaterally - Psychiatric Psychiatric: A&O x's 3, appropriate affect, intact judgment & insight Results CBC & Chem 7: 08/23/21 06:24 08/23/21 06:21 Labs: Abnormal Lab Results - Last 24 Hours (Table) 08/21/21 08/23/21 Range/Units 10:29 06:21 Sodium 129 L (137-145) mmol/L Chloride 88 L (98-107) mmol/L Carbon Dioxide 36 H (22-30) mmol/L BUN 41 H (9-20) mg/dL Glucose 186 H (74-99) mg/dL Calcium 8.3 L (8.4-10.2) mg/dL Procalcitonin 0.24 H (0.02-0.09) ng/mL Microbiology - Last 24 Hours (Table) 08/22/21 11:24 Gram Stain - Preliminary Sputum Sputum Culture - Preliminary 08/21/21 10:02 Blood Culture - Preliminary Blood No Growth after 24 hours 08/21/21 10:17 Blood Culture - Preliminary Blood No Growth after 24 hours Comments: chest US report reviewed Chest x-ray: report reviewed Assessment and Plan (1) Lung cancer Narrative/Plan: Pt currently on maintenance alimta with GCSF, given 08/17. Due for restaging scans, will wait until current COPD exacerbation is resolved Current Visit: Yes Status: Chronic Priority: Medium Code(s): C34.90 - MALIGNANT NEOPLASM OF UNSP PART OF UNSP BRONCHUS OR LUNG SNOMED Code(s): 008373044 Plan: Doppler of RUE for swelling US chest, pt may have thoracentesis. Please send fluid for cytology if procedure performed. Defer Tx of COPD exacerbation to Attending Doctor attests: I performed a history and physical examination of this patient, developed impression and plan of care, discussed with dictator. I agree with dictators note, documented as a scribe.
[2021-08-23] MEDS: clonazePAM 0.5 MG TAB PO SCH (20:31)
[2021-08-23] MEDS: Acetaminophen-Codeine 300-30mg TAB PO PRN (22:25)
[2021-08-23] MEDS: LIDOCAINE 5% PATCH TOPICAL PRN (22:25)
[2021-08-24] MEDS: methylPREDNISolone SOD SUCCI 125 MG/2 ML VIAL IV SCH ×4 (03:58→20:52)
[2021-08-24 06:18] LABS: African American GFR (CKD) 58 (>60 ml/min/1.73 sqM); Anion Gap 4 mmol/L; Blood Urea Nitrogen 40 mg/dL (9-20); Calcium 8.4 mg/dL (8.4-10.2); Carbon Dioxide 36 mmol/L (22-30); Chloride 86 mmol/L (98-107); Glucose 136 mg/dL (74-99); Non-African American GFR(CKD) 51 (>60 ml/min/1.73 sqM); Potassium 3.9 mmol/L (3.5-5.1); Sodium 126 mmol/L (137-145)
[2021-08-24] MEDS: BUDESONIDE 1 MG/2 ML NEBU INHALATION SCH ×2 (07:18→21:08)
[2021-08-24] MEDS: FORMOTEROL FUMARATE 20 MCG/2 ML NEBU INHALATION SCH ×2 (07:18→21:09)
[2021-08-24] MEDS: IPRATROPIUM-ALBUTEROL 3 ML NEB INHALATION SCH ×4 (07:19→21:09)
[2021-08-24] MEDS: METOPROLOL SUCCINATE (ER) 25 MG TAB.ER.24H PO SCH (09:35)
[2021-08-24] MEDS: POTASSIUM CHLORIDE ER 20 MEQ TAB.ER PO SCH (09:36)
[2021-08-24] MEDS: PANTOPRAZOLE 40 MG TABLET PO SCH ×2 (09:36→20:53)
[2021-08-24] MEDS: FOLIC ACID 1 MG TAB PO SCH (09:36)
[2021-08-24] MEDS: MULTIVITAMINS, THERA 1 EACH TAB PO SCH (09:36)
[2021-08-24] MEDS: FUROSEMIDE 10 MG/ML 4 ML VIAL IV SCH (09:36)
[2021-08-24] MEDS: guaiFENesin 600 MG TABLET.ER PO SCH ×2 (09:36→20:53)
[2021-08-24] MEDS: SENNOSIDES-DOCUSATE SODIUM 1 EACH TAB PO SCH ×2 (09:37→20:52)
[2021-08-24] MEDS: SULFAMETHOX-TMP 800-160MG 1 EACH TAB PO SCH ×2 (09:37→20:53)
[2021-08-24 11:22] LABS: Basophils # (M) 0 X 10*3/uL (0.00-0.10); Eosinophils # (M) 0 X 10*3/uL (0.04-0.35); HCT 24.9 % (39.6-50.0); MCH 35.6 pg (27.0-32.0); MCHC 32.1 g/dL (32.0-37.0); MCV 110.7 fL (80.0-97.0); Mean Platelet Volume 12.9 fL (9.5-12.2); Metamyelocytes % 1 % (0-0); Neutrophils # (M) 9.34 X 10*3/uL (2.00-8.90); Neutrophils % (M) 93 %; Platelet Count 28 X 10*3/uL (140-440); RBC 2.25 X 10*6/uL (4.40-5.60); RDW 15.3 % (11.5-14.5); WBC 10.04 X 10*3/uL (4.50-10.00)
[2021-08-24] MEDS: CEFEPIME 2 GM in SODIUM CHLORIDE 0.9% 100 ML IVPB SCH (12:36)
--- NOTE | 2021-08-24 13:22 | P.PN ---
Subjective Progress Note Date: 08/24/21 Principal diagnosis: Lung Cancer and Positive Sputum Cultures, COPD Exacerbation Platelets continue to drop, patient receiving Bactrim and cefepime. I have contacted INTAKE MANAGER with Pulm for other options of treatment as Bactrim maybe contributing to decreased platelets. Objective - Vital Signs Vital signs: Vital Signs Temp 98 F 08/24/21 08:00 Pulse 88 08/24/21 11:08 Resp 16 08/24/21 08:00 BP 121/63 08/24/21 08:00 Pulse Ox 95 08/24/21 08:00 Intake & Output 08/23/21 08/24/21 08/24/21 18:59 06:59 18:59 Intake Total 640 Output Total 900 850 Balance -900 -210 Weight 70.307 kg Intake: Oral 640 Output: Urine 900 850 Other: Voiding Method Urinal Urinal Urinal - Constitutional General appearance: Present: cooperative, no acute distress - EENT Eyes: Present: EOMI, poor dentition ENT: Present: NA/AT, normal oropharynx - Neck Neck: Present: normal ROM - Respiratory Respiratory: bilateral: diminished, rhonchi - Cardiovascular Rhythm: regularly irregular - Gastrointestinal General gastrointestinal: Present: normal bowel sounds, soft - Integumentary Integumentary: Present: pale - Neurologic Neurologic: Present: CNII-XII intact - Musculoskeletal Musculoskeletal: Present: generalized weakness, strength equal bilaterally - Psychiatric Psychiatric: Present: A&O x's 3, appropriate affect, intact judgment & insight - Labs CBC & Chem 7: 08/24/21 05:46 08/24/21 05:46 Labs: Abnormal Lab Results - Last 24 Hours (Table) 08/24/21 08/24/21 Range/Units 05:46 05:46 WBC 10.04 H (4.50-10.00) X 10*3/uL RBC 2.25 L (4.40-5.60) X 10*6/uL Hgb 8.0 L (13.0-17.0) g/dL Hct 24.9 L (39.6-50.0) % MCV 110.7 H (80.0-97.0) fL MCH 35.6 H (27.0-32.0) pg RDW 15.3 H (11.5-14.5) % Plt Count 28 L (140-440) X 10*3/uL Plt Count Comment A MPV 12.9 H (9.5-12.2) fL Metamyelocytes % 1 H (0-0) % Neutrophils # (Manual) 9.34 H (2.00-8.90) X 10*3/uL Lymphocytes # (Manual) 0.20 L (0.90-5.00) X 10*3/uL Eosinophils # (Manual) 0 L (0.04-0.35) X 10*3/uL Immature Plt Fraction 11.2 H (1.1-6.1) % Sodium 126 L (137-145) mmol/L Chloride 86 L (98-107) mmol/L Carbon Dioxide 36 H (22-30) mmol/L BUN 40 H (9-20) mg/dL Creatinine 1.36 H (0.66-1.25) mg/dL Glucose 136 H (74-99) mg/dL Microbiology - Last 24 Hours (Table) 08/21/21 10:02 Blood Culture - Preliminary Blood No Growth after 72 hours 08/21/21 10:17 Blood Culture - Preliminary Blood No Growth after 72 hours Assessment and Plan (1) Thrombocytopenia Narrative/Plan: Likely secondary to medication, will discuss with pulm for additional option in place of bactrim. Also contributing factors to monitor for DIC/Infection. Additional factors chemotherapy Current Visit: Yes Status: Acute Code(s): D69.6 - THROMBOCYTOPENIA, UNSPECIFIED SNOMED Code(s): 517163161 (2) COPD with exacerbation Narrative/Plan: Per Pulmonary Current Visit: Yes Status: Acute Code(s): J44.1 - CHRONIC OBSTRUCTIVE PULMONARY DISEASE W (ACUTE) EXACERBATION SNOMED Code(s): 544736635 (3) Lung cancer Narrative/Plan: Continue on treatment plan after stabilized, discharged and cleared by Pulmonology Current Visit: Yes Status: Chronic Priority: Medium Code(s): C34.90 - MALIGNANT NEOPLASM OF UNSP PART OF UNSP BRONCHUS OR LUNG SNOMED Code(s): 726044289
--- NOTE | 2021-08-24 13:28 | P.PN ---
Rafat curtis is a pleasant white male,with a known history of COPD and smoking. He was found to have pericardial effsusion last year along with bilateral lower extremity edema . The patient had percutaneous pericardial drainage of 05/10/20 with cytology positive for metastatic adenocarcinoma, consistent with lung or upper GI primary. Patient had a prior history of prostate cancer with a radical prostatectomy in 03/12. PSA was normal recently. He had multiple tests including MRI, PET , colonoscopy failing to show other etiology. He was discontinued on immunotherapy and is been undergoing chemotherapy only. He is currently being followed by and Dr rTejo for the lung cancer, however there is no significant primary tumor found.. He came to the emergency room one day ago with complaints of increasing shortness of breath over the past 2 days. He denies any current chest pains, pressures. Complains of shortness of breath. He denies any nausea or vomiting. Appetite remains poor. He has a known T6 compression fracture along the L1 compression fracture. MAXIMUM TEMPERATURE is 101.3 yesterday afternoon. Oxygen saturation has improved since he's remained in the ER due to bed shortage. Originally 92% currently at 96% on 4 L via nasal cannula. Labs show hemoglobin 10.6. MCV of 111.5. He has marketed macrocytosis. Chemistry showed a sodium 132 and a GFR now of 54. Total protein is 5.7 albumin 3.2. Blood cultures are negative so far 2 Chest x-ray shows bilateral pleural effusions with scattered areas of patchy infiltrate no evidence of overt failure. Dr. Lea is very seen the patient and his recommendations of updrafts IV cefepime and Bactrim along with sputum cultures Lasix IV Solu-Medrol and Perf oromist Pulmicort were noted. They're considering bronchoscopy 08/23/2021: Patient denies any chest pains, pressures, nausea or vomiting. Shortness of breath is improved. He remains on 4 L O2 and pulse oximetry is running 93%. Heart rate is minimally tachycardic at 113. MAXIMUM TEMPERATURE is 99.3F Labs her studies show his sodium is 129 BUN 41 creatinine 1.23 GFR is 58. An easy him is 2.0. Ultrasound of the chest was done marking both right and left lungs for possible thoracentesis with Dr. Lea. Pulmonology is following. The recommendations were reviewed today. Patient remains on Pulmicort, fluticasone, Perforomist, DuoNeb updrafts, Solu- Medrol, cefepime antibiotic coverage 08/24/2021: Patient is awake and alert. His is at bedside. He denies any chest pains or pressures this time he denies any nausea or vomiting. Indicates foods very good and his appetite has not been great eater. He does feel short of breath. He remains on oxygen at 4 L/m via nasal cannula pulse ox 95%. Blood pressure temperature remained stable is a no-show and that out of 1750 ML's yesterday. Labs show hemoglobin 8.0. Platelets are 28. Sodium is now 126. GFR is 51. Serum cultures were obtained by pulmonology are pending. Hematology oncology is following as well. There were on 08/17/2021 he had cycle 14 of Alimta with GCSF. He continues to complain of swelling of his right arm that is distal from his IV site. Also he is wearing his compression hose today. Continues to have edema of the lower extremities. Objective - Vital Signs Vital signs: Vital Signs Temp 98 F 08/24/21 08:00 Pulse 88 08/24/21 11:08 Resp 16 08/24/21 08:00 BP 121/63 08/24/21 08:00 Pulse Ox 95 08/24/21 08:00 Intake & Output 08/23/21 08/24/21 08/24/21 18:59 06:59 18:59 Intake Total 640 Output Total 900 850 Balance -900 -210 Weight 70.307 kg Intake: Oral 640 Output: Urine 900 850 Other: Voiding Method Urinal Urinal Urinal - Exam GENERAL: thin and in no acute distress. NECK: Normal range of motion, supple without lymphadenopathy or JVD, no thyromegaly LUNGS: Breath sounds significantly coarse, worse on the right than the left this time. Decreased air exchange on the left side. Minimal improvement from yesterday. HEART: Regular rate and rhythm without murmurs, rubs or gallops.S1S2 Normal ABDOMEN: Soft, nontender, normoactive bowel sounds. No guarding, no rebound. No masses appreciated. EXTREMITIES: Normal range of motion, no pitting or edema. No clubbing or cyanosis. NEUROLOGICAL: Cranial nerves II through XII grossly intact. Normal speech, normal gait. PSYCH: Normal mood, normal affect. SKIN: Warm, Dry, normal turgor, mild blanchable erythema noted to his lower extremities. - Labs CBC & Chem 7: 08/24/21 05:46 08/24/21 05:46 Labs: Abnormal Lab Results - Last 24 Hours (Table) 08/24/21 08/24/21 Range/Units 05:46 05:46 WBC 10.04 H (4.50-10.00) X 10*3/uL RBC 2.25 L (4.40-5.60) X 10*6/uL Hgb 8.0 L (13.0-17.0) g/dL Hct 24.9 L (39.6-50.0) % MCV 110.7 H (80.0-97.0) fL MCH 35.6 H (27.0-32.0) pg RDW 15.3 H (11.5-14.5) % Plt Count 28 L (140-440) X 10*3/uL Plt Count Comment A MPV 12.9 H (9.5-12.2) fL Metamyelocytes % 1 H (0-0) % Neutrophils # (Manual) 9.34 H (2.00-8.90) X 10*3/uL Lymphocytes # (Manual) 0.20 L (0.90-5.00) X 10*3/uL Eosinophils # (Manual) 0 L (0.04-0.35) X 10*3/uL Immature Plt Fraction 11.2 H (1.1-6.1) % Sodium 126 L (137-145) mmol/L Chloride 86 L (98-107) mmol/L Carbon Dioxide 36 H (22-30) mmol/L BUN 40 H (9-20) mg/dL Creatinine 1.36 H (0.66-1.25) mg/dL Glucose 136 H (74-99) mg/dL Microbiology - Last 24 Hours (Table) 08/21/21 10:02 Blood Culture - Preliminary Blood No Growth after 72 hours 08/21/21 10:17 Blood Culture - Preliminary Blood No Growth after 72 hours Assessment and Plan (1) Acute respiratory failure with hypoxia Current Visit: No Status: Acute Code(s): J96.01 - ACUTE RESPIRATORY FAILURE WITH HYPOXIA SNOMED Code(s): 07758927 (2) Bilateral pleural effusion Current Visit: Yes Status: Acute Code(s): J90 - PLEURAL EFFUSION, NOT ELSEWHERE CLASSIFIED SNOMED Code(s): 792207125 (3) COPD with exacerbation Current Visit: Yes Status: Acute Code(s): J44.1 - CHRONIC OBSTRUCTIVE PULMONARY DISEASE W (ACUTE) EXACERBATION SNOMED Code(s): 223119462 (4) Febrile illness, acute Current Visit: Yes Status: Acute Code(s): R50.9 - FEVER, UNSPECIFIED SNOMED Code(s): 223892260 (5) Lung cancer Current Visit: Yes Status: Chronic Priority: Medium Code(s): C34.90 - MALIGNANT NEOPLASM OF UNSP PART OF UNSP BRONCHUS OR LUNG SNOMED Code(s): 208149624 (6) Anemia Current Visit: No Status: Acute Code(s): D64.9 - ANEMIA, UNSPECIFIED SNOMED Code(s): 546113498 (7) Compression fracture of T6 vertebra Current Visit: No Status: Acute Code(s): S22.050A - WEDGE COMPRESSION FRACTURE OF T5-T6 VERTEBRA, INIT SNOMED Code(s): 395952680 (8) History of nicotine dependence Current Visit: No Status: Acute Code(s): Z87.891 - PERSONAL HISTORY OF NICOTINE DEPENDENCE SNOMED Code(s): 035863319 (9) History of prostate cancer Current Visit: No Status: Acute Code(s): Z85.46 - PERSONAL HISTORY OF MALIGNANT NEOPLASM OF PROSTATE SNOMED Code(s): 214686066 (10) Leukocytosis Current Visit: No Status: Acute Code(s): D72.829 - ELEVATED WHITE BLOOD CELL COUNT, UNSPECIFIED SNOMED Code(s): 330359696 (11) Compression fracture of L1 lumbar vertebra Current Visit: No Status: Chronic Code(s): S32.010A - WEDGE COMPRESSION FRACTURE OF FIRST LUMBAR VERTEBRA, INIT SNOMED Code(s): 209887487 (12) Hyponatremia Current Visit: Yes Status: Acute Code(s): E87.1 - HYPO-OSMOLALITY AND HYPONATREMIA SNOMED Code(s): 19029601 Plan: He continues on his Pulmicort, fluticasone, performance, DuoNeb, methylprednisolone, for COPD exacerbation. He remains on IV antibiotics of cefepime and Bactrim. pantoprazole for GI prophylaxis. Continue, Klonopin. For anxiety Repeat labs in a.m., Wait on bronchoscopy later today and possibly a thoracentesis. He'll be reevaluated next 24 hours.
[2021-08-24] MEDS: IPRATROPIUM-ALBUTEROL 3 ML NEB INHALATION PRN (13:49)
[2021-08-24] MEDS ORDERED: LIDOCAINE 1% INJ 10MG/ML (20 ML MDV) ONE (14:01)
[2021-08-24] MEDS ORDERED: fentaNYL (PF) 50 MCG/ML 2 ML AMP ONE (14:01)
[2021-08-24] MEDS ORDERED: IV FLUID CONTINUATION 600 ML IV ONE (14:01)
[2021-08-24] MEDS ORDERED: SUCCINYLCHOLINE CHLORIDE 100 MG/5 ML SYR IV ONE (14:01)
[2021-08-24] MEDS ORDERED: PROPOFOL 10 MG/ML 20 ML VIAL IV ONE (14:01)
[2021-08-24] MEDS ORDERED: MIDAZOLAM 2 MG/2 ML VIAL ONE (14:01)
--- NOTE | 2021-08-24 14:35 | P.PN ---
Subjective Progress Note Date: 08/24/21 This is a 75-year-old male patient who is coming in today to the emergency for another episodes of worsening shortness of breath. He is well-known to me. He is known to have chronic dyspnea and advanced COPD with an FEV1 of 34% of predicted. He is also a case of metastatic adenocarcinoma consistent of a lung primary that was originally diagnosed on 05/10/2020. At that time the patient presented to us with a large pericardial effusion and required drainage and the fluid was consistent with adenocarcinoma. Since then, the patient underwent further investigation including a PET scan that showed uptake within a lymph node in the right supraclavicular area and the hilar area. He was started on s ystemic chemotherapy using carboplatinum and Alimta. He also received immunotherapy during the course of his treatment. At one point, the patient was receiving immunotherapy and due to concern of his worsening shortness of breath, the immunotherapy has been discontinued and currently is on a Alimta maintenance. The patient received his last dose of Alimta approximately 5 days ago. He is coming in today with worsening shortness of breath, cough and congestion and hypoxemia. At home is maintained on oxygen at 2 L per minute nasal cannula. Noted during his last hospitalization, the patient is COPD exacerbation his sputum was positive for stenotrophomonas. We ended up putting this patient on Bactrim and sent home on a prednisone burst taper. As the patient completed the course of antibiotics and steroids, his breathing got worse. The chest x-ray from today showing bilateral pleural effusion, worse on the left and there is some vague limited infiltration of the lung bases mainly consistent with some increased pulmonary vascular congestion. His previous echocardiogram was essentially within normal and the patient has a preserved LV function. His most recent computed tomography scan of the chest was done on 07/28/2021 and the patient was found to have advanced COPD with emphysematous changes bilaterally. There was also evidence of bilateral pleural effusion worse on the left and some atelectatic changes in lung bases bilaterally. There was no evidence of any pulmonary embolism. There was progression a T6 compression fracture and an old L1 compression fracture. No hilar masses. No filling defects. No pericardial effusion was seen. For now, the patient is having difficulty in breathing. He is currently on oxygen at 2 L his current pulse ox is 97%. He continues to have a very congested cough. His blood work shows a hemoglobin of 10.6 with a white cell count of 5.7. Platelet count is at 87. Normal coagulation profile. Creatinine is at 1.3. Sodium is at 132. ProBNP level is at 880. The pro calcitonin LEVEL HAS NOT BEEN CHECKED. CPK IS LESS THAN 20. THE REST OF THE ELECTROLYTES INCLUDING CALCIUM AND POTASSIUM ARE WITHIN NORMAL LIMITS. LIVER FUNCTION TESTS ARE ALSO WITHIN NORMAL LIMITS. The patient is seen today 08/22/2021 and follow-up in the emergency department. He is awake and alert in no acute distress. Breathing a bit easier today co mpared to yesterday. Continues with a loose productive cough. Culture pending. He is maintaining O2 saturations in the mid 90s on 4 L/m per nasal cannula. He is heme hemodynamically stable. He's afebrile. He's been initiated on DuoNeb inhalations, Pulmicort and Perforomist inhalations, IV Solu-Medrol, Mucinex. IV diuretics. In about eczema form of cefepime and Bactrim. 08/23/2021, the patient remains bronchospastic and wheezy and short of breath and he continues to have a congested cough. Not producing a lot of sputum. Nevertheless, his cough is quite congested. He was able to give me a sputum sample milligrams is positive for many gram-negative bacilli, final culture are still pending.The patient remains on a combination of cefepime and Bactrim. He is on Pulmicort and Perforomist nebulized treatments twice a day and he is also on IV Solu-Medrol. He remains on Lasix. There are bilateral pleural effusion. The pleural fluid marking was done via ultrasound. On 08/24/2021, the patient is essentially the same. Limited improvement since yesterday. The patient has become slightly hypovolemic and sodium level is down to 126. As such, the diuretics were discontinued. Her symptoms the patient continues to have copious respiratory secretions. The plan is to proceed with a bronchoscopy and a aspiration of the bronchial secretions for further cultures and analysis. The patient was unable to bring up much of sputum over the past 24 hours. The he remains on a combination of cefepime and Bactrim. He is also on examination Perforomist and Pulmicort nebulized treatments twice a day and DuoNeb nebulized.. Pleural effusions. No other complaints otherwise for now. On examination he has developed some oropharyngeal candidiasis. During the bronchoscopy from this morning the patient was found to have copious amount of brownish thick purulent respiratory secretions. These were suctioned out. Also noted involving the pharynx and upper airways. Diflucan will be added. Meanwhile, the patient will be given a combination of cefepime and Bactrim. Objective - Vital Signs Vital signs: Vital Signs Temp 98.7 F 08/24/21 13:40 Pulse 93 08/24/21 13:56 Resp 22 08/24/21 13:56 BP 128/63 08/24/21 13:40 Pulse Ox 82 L 08/24/21 13:40 Intake & Output 08/23/21 08/24/21 08/24/21 18:59 06:59 18:59 Intake Total 640 Output Total 900 850 Balance -900 -210 Weight 70.307 kg Intake: Oral 640 Output: Urine 900 850 Other: Voiding Method Urinal Urinal Urinal - Exam GENERAL EXAM: Alert, very pleasant 75-year-old gentleman, I was noted that the patient's oxygen requirements was higher and He was up to 10 L of oxygen by nasal cannula to maintain saturation above 90. HEAD: Normocephalic. EYES: Normal reaction of pupils, equal size. NOSE: Clear with pink turbinates. THROAT: No erythema or exudates. NECK: No masses, no JVD. CHEST: No chest wall deformity. LUNGS: Equal air entry with bilateral scattered rhonchi, end expiratory wheeze, diminished. CVS: S1 and S2 normal with no audible murmur, regular rhythm. ABDOMEN: No hepatosplenomegaly, normal bowel sounds, no guarding or rigidity. SPINE: No scoliosis or deformity SKIN: No rashes CENTRAL NERVOUS SYSTEM: No focal deficits, tone is normal in all 4 extremities. EXTREMITIES: There is no peripheral edema. No clubbing, no cyanosis. Pe ripheral pulses are intact. - Labs CBC & Chem 7: 08/24/21 05:46 08/24/21 05:46 Labs: Abnormal Lab Results - Last 24 Hours (Table) 08/24/21 08/24/21 Range/Units 05:46 05:46 WBC 10.04 H (4.50-10.00) X 10*3/uL RBC 2.25 L (4.40-5.60) X 10*6/uL Hgb 8.0 L (13.0-17.0) g/dL Hct 24.9 L (39.6-50.0) % MCV 110.7 H (80.0-97.0) fL MCH 35.6 H (27.0-32.0) pg RDW 15.3 H (11.5-14.5) % Plt Count 28 L (140-440) X 10*3/uL Plt Count Comment A MPV 12.9 H (9.5-12.2) fL Metamyelocytes % 1 H (0-0) % Neutrophils # (Manual) 9.34 H (2.00-8.90) X 10*3/uL Lymphocytes # (Manual) 0.20 L (0.90-5.00) X 10*3/uL Eosinophils # (Manual) 0 L (0.04-0.35) X 10*3/uL Immature Plt Fraction 11.2 H (1.1-6.1) % Sodium 126 L (137-145) mmol/L Chloride 86 L (98-107) mmol/L Carbon Dioxide 36 H (22-30) mmol/L BUN 40 H (9-20) mg/dL Creatinine 1.36 H (0.66-1.25) mg/dL Glucose 136 H (74-99) mg/dL Microbiology - Last 24 Hours (Table) 08/22/21 11:24 Gram Stain - Preliminary Sputum Sputum Culture - Preliminary Gram Neg Bacilli 08/21/21 10:02 Blood Culture - Preliminary Blood No Growth after 72 hours 08/21/21 10:17 Blood Culture - Preliminary Blood No Growth after 72 hours Assessment and Plan Plan: 1 Acute COPD exacerbation, and the patient is presenting for another episode of worsening shortness of breath, chest congestion and increased difficulty in breathing and hypoxemia and currently is on 2 L of oxygen by nasal cannula. The prior sputum culture was positive for stenotrophomonas maltophilia. The patient will be treated again with combination of of cefepime and Bactrim. The patient showed limited clinical improvement over the past 24-48 hours. Based on that, the patient underwent a bronchoscopy with therapeutic it was suctioning and removal of purulent respiratory secretions and cultures will be recent. Meanwhile, his oxygen requirements went up to 10 L per minute cannula. I just completed a bronchoscopy. The patient will be extubated the patient be transferred back to his room. Oxygen will be titrated to maintain a saturation above 90%. Note that the patient is on oxygen at home at 2.5 L. 2 Acute on chronic hypoxic respiratory failure secondary to the above, wears 2.5 L nasal cannula at home 3 Mild pulmonary hypertension, normal LV function 4 History of metastatic adenocarcinoma of the lungs, last chemotherapy treatment 06/28/2021 5 History of malignant pericardial effusion status post systemic chemotherapy with Alimta and the patient is off immunotherapy 6 Compression fracture of T6 , acute 7 Compression fracture of L1, chronic 8 Severe COPD, stage III 9 History of prostate cancer 10 REM sleep behavior disorder 11 Mild obstructive sleep apnea, not on CPAP at home 12 History of tobacco dependence, quit 04/2020 13 Claustrophobic 14 History of shingles 15 bilateral pleural effusions 16 oropharyngeal candidiasis 17 hyponatremia 18 thrombocytopenia Plan Restart the patient on DuoNeb nebulized treatments around the clock Check pro calcitonin level, was low at 0.2 With the patient IV cefepime and Bactrim orally and will add Diflucan for oropharyngeal candidiasis Bronchoscopy and therapeutic it was suctioning and bronchial aspirates were collected Stop the IV Lasix and give the patient gentle hydration with normal saline at the rate of 50 mL an hour Monitor sodium levels Mother creatinine Monitor platelets and obtain a hematology consultation Oxygen to maintain saturation above 90% Mucinex DM twice a day Stop Anoro and switch this patient a combination of Perforomist and Pulmicort nebulized twice a day IV Solu Medrol 60 g every 6 hours Check COVID-19 nasal swab, was negative
--- NOTE | 2021-08-24 14:42 | P.PCN ---
Date of Procedure: 08/24/21 Preoperative Diagnosis: COPD and tracheobronchitis with pseudomonas and other gram-negative bacteria Postoperative Diagnosis: COPD and tracheobronchitis with pseudomonas and other gram-negative bacteria Oropharyngeal and laryngeal candidiasis Procedure(s) Performed: 1 flexible Bronchoscopy and therapeutic airway suctioning Anesthesia: REGAN Surgeon: Brynn Nicole Estimated Blood Loss (ml): 0 Pathology: other Condition: stable Disposition: floor Operative Findings: This procedure was done as the patient was having difficulty breathing and ongoing issues with COPD exacerbation. The patient has pelvis as per secretions which she was unable to cough out. As such, bronchoscopy and therapeutic it was suctioning was performed. The bronchoscopy was done in the endoscopy suite. The patient was intubated and placed on a mechanical ventilated by the anesthesia team. After achieving adequate sedation, the flexible bronchoscope was introduced through the orotracheal tube feeds was was advanced into the lower trachea. The tip of the oral tracheal tube was seen on rounds mid trachea. The flexible bronchoscope was easily passed into the distal trachea. Copious amount of respiratory secretions that were brownish beige and taken purulent was encountered. Therapeutic airway suctioning was done. Following that, the airways infection completed. Similar type secretions were noted in the lower lobes bilaterally more so on the right. Suspected there was included the bilateral mainstem bronchi, right upper lobe bronchus, bronchus intermedius, right middle lobe bronchus and right lower lobe bronchus and the various Segments and Segments on the Right, in Addition to the Left Mainstem Bronchus, Left Upper Lobe Bronchus and Left Lower Lobe Bronchus and the Various Segments 8 Segments on the Left. No Endobronchial Lesions or Tumors Identified. At the Completion of the Procedure, the Patient Had Adequate Pulmonary Toileting without Any Residual Secretions Identified. The Bronchial Aspirates Were Sent for Microbial Cultures and Analysis. No Endobronchial Tumors. No Bleeding. No Polyps. No Lesions. Prior to Extubation, the Flexible Bronchoscope Was Also Introduced through the right nostril and was advanced into the upper airway. Examination of the upper airway fluid the posterior oropharynx and the larynx and epiglottis in the course. There was evidence of oropharyngeal and pharyngeal candidiasis.. Epiglottis was normal. The procedure was completed. The bronchoscope was removed. The patient will be extubated and the patient will be transferred to recovery and later on to his room once cleared by anesthesia.
--- NOTE | 2021-08-24 15:24 | XR ---
EXAMINATION TYPE: XR chest 1V portable DATE OF EXAM: 08/24/2021 COMPARISON: 08/21/2021 INDICATION: Short of breath postbronchoscopy TECHNIQUE: Single frontal view of the chest is obtained. FINDINGS: The heart size is normal. The pulmonary vasculature is normal. Patchy infiltrates into the right upper and right lower lobes. Small bilateral pleural effusions are present. No pneumothorax is evident. Fat fold lines on the left. IMPRESSION: 1. Patchy infiltrates predominantly through the right upper and lower lung coronel. 2. Small bilateral pleural effusions
[2021-08-24] MEDS: SODIUM CHLORIDE 0.9% 1,000 ML IV SCH ×2 (17:47→22:10)
[2021-08-24] MEDS: clonazePAM 0.5 MG TAB PO SCH (20:53)
[2021-08-24] MEDS: Acetaminophen-Codeine 300-30mg TAB PO PRN (22:08)
[2021-08-25] MEDS: CEFEPIME 2 GM in SODIUM CHLORIDE 0.9% 100 ML IVPB SCH ×2 (01:05→12:52)
[2021-08-25] MEDS: SODIUM CHLORIDE 0.9% 1,000 ML IV SCH (02:44)
[2021-08-25] MEDS: methylPREDNISolone SOD SUCCI 125 MG/2 ML VIAL IV SCH ×4 (04:30→21:33)
[2021-08-25 07:58] LABS: African American GFR (CKD) 76 (>60 ml/min/1.73 sqM); Anion Gap 3 mmol/L; Blood Urea Nitrogen 44 mg/dL (9-20); Calcium 8.5 mg/dL (8.4-10.2); Carbon Dioxide 35 mmol/L (22-30); Chloride 89 mmol/L (98-107); Glucose 128 mg/dL (74-99); Non-African American GFR(CKD) 65 (>60 ml/min/1.73 sqM); Sodium 127 mmol/L (137-145)
[2021-08-25] MEDS: IPRATROPIUM-ALBUTEROL 3 ML NEB INHALATION SCH ×4 (08:13→19:42)
[2021-08-25] MEDS: BUDESONIDE 1 MG/2 ML NEBU INHALATION SCH ×2 (08:13→19:10)
[2021-08-25] MEDS: FORMOTEROL FUMARATE 20 MCG/2 ML NEBU INHALATION SCH ×2 (08:13→19:43)
[2021-08-25] MEDS: MULTIVITAMINS, THERA 1 EACH TAB PO SCH (08:58)
[2021-08-25] MEDS: FOLIC ACID 1 MG TAB PO SCH (08:58)
[2021-08-25] MEDS: SULFAMETHOX-TMP 800-160MG 1 EACH TAB PO SCH ×2 (08:58→21:34)
[2021-08-25] MEDS: PANTOPRAZOLE 40 MG TABLET PO SCH ×2 (08:58→21:34)
[2021-08-25] MEDS: SENNOSIDES-DOCUSATE SODIUM 1 EACH TAB PO SCH ×2 (08:59→21:34)
[2021-08-25] MEDS: guaiFENesin 600 MG TABLET.ER PO SCH ×2 (08:59→21:34)
[2021-08-25] MEDS: METOPROLOL SUCCINATE (ER) 25 MG TAB.ER.24H PO SCH (08:59)
--- NOTE | 2021-08-25 11:05 | P.PN ---
Subjective Progress Note Date: 08/25/21 Principal diagnosis: Dyspnea, COPD exacerbation, tracheobronchitis 76-year-old male patient with known history of COPD and smoking. Presented emergency room for exacerbation of COPD and dyspnea. Last year patient was being worked up for lower extremity edema and was found to have a pericardial effusion. On 05/10/2020 was pericardial drain and cytology of fluid revealed metastatic adenocarcinoma, consistent with longer of procedure GI is primary cancer. Patient doesn't have a history of prostate cancer radical prostatectomy in 03/12. Even after full diagnostic workup no primary spot was found. 08/25/2021 patient is comfortable in bed at this time in bed at this time. Only complaint he has is feeling short of breath which she recently received a breathing treatment and an increase in oxygen from 5 L nasal cannula high flow to 8 L high flow. He denies nausea, vomiting, diarrhea, chest pain or pressure, or visual changes at this time. Vital signs stable with a pulse ox maintaining 92% on the liters. Chemistry reveals sodium 127, potassium 4.0, albumin of 44, creatinine 1.1 and glucose of 128. Patient is on cefepime 2 g every 12 hours IV, Bactrim DS, and steroids. Patient is post procedure day 1 for bronchoscopy where copious amounts of beige purulent secretions suctioned from bilateral lungs. Patient did present a washcloth with a long clot that he pulled from the back of his throat late last night. He states that he could feel it come from his sinus cavity, but has had no active bleeding since. Mild edema noted bilateral lower extremities but compression hose are in place this time. Objective - Vital Signs Vital signs: Vital Signs Temp 98.2 F 08/25/21 08:48 Pulse 86 08/25/21 08:48 Resp 20 08/25/21 08:48 BP 135/86 08/25/21 08:48 Pulse Ox 92 L 08/25/21 09:10 Intake & Output 08/24/21 08/25/21 08/25/21 18:59 06:59 18:59 Intake Total 586 Output Total 300 Balance 286 Intake: IV 350 Oral 236 Output: Urine 300 Other: Voiding Method Urinal Urinal Urinal # Voids 3 - Exam GENERAL: well-nourished and in no acute distress. HEAD: Atraumatic, normocephalic. EYES: Pupils equal round and reactive to light, extraocular movements intact, sclera anicteric, conjunctiva are normal. ENT:nares patent, oropharynx clear without exudates. Moist mucous membranes. NECK: Normal range of motion, supple without lymphadenopathy or JVD, no thyromegaly LUNGS: Breath sounds coarse bilaterally with wheezing, HEART: Regular rate and rhythm without murmurs, rubs or gallops.S1S2 Normal ABDOMEN: Soft, nontender, normoactive bowel sounds. No guarding, no rebound. No masses appreciated. EXTREMITIES: Normal range of motion, no pitting or edema. No clubbing or cyanosis. NEUROLOGICAL: Cranial nerves II through XII grossly intact. Normal speech, normal gait. PSYCH: Normal mood, normal affect. SKIN: Warm, Dry, normal turgor, no rashes or lesions noted. - Labs CBC & Chem 7: 08/24/21 05:46 08/25/21 06:26 Labs: Abnormal Lab Results - Last 24 Hours (Table) 08/24/21 08/25/21 Range/Units 05:46 06:26 WBC 10.04 H (4.50-10.00) X 10*3/uL RBC 2.25 L (4.40-5.60) X 10*6/uL Hgb 8.0 L (13.0-17.0) g/dL Hct 24.9 L (39.6-50.0) % MCV 110.7 H (80.0-97.0) fL MCH 35.6 H (27.0-32.0) pg RDW 15.3 H (11.5-14.5) % Plt Count 28 L (140-440) X 10*3/uL Plt Count Comment A MPV 12.9 H (9.5-12.2) fL Metamyelocytes % 1 H (0-0) % Neutrophils # (Manual) 9.34 H (2.00-8.90) X 10*3/uL Lymphocytes # (Manual) 0.20 L (0.90-5.00) X 10*3/uL Eosinophils # (Manual) 0 L (0.04-0.35) X 10*3/uL Immature Plt Fraction 11.2 H (1.1-6.1) % Sodium 127 L (137-145) mmol/L Chloride 89 L (98-107) mmol/L Carbon Dioxide 35 H (22-30) mmol/L BUN 44 H (9-20) mg/dL Glucose 128 H (74-99) mg/dL Microbiology - Last 24 Hours (Table) 08/22/21 11:24 Gram Stain - Final Sputum Sputum Culture - Final Pseudomonas aeruginosa 08/24/21 14:30 Gram Stain - Preliminary Bronchoalviolar Lavage - Left Bronchial Washings Culture - Preliminary 08/24/21 14:30 Acid Fast Bacilli Culture - Preliminary Bronchoalviolar Lavage - Left 08/24/21 14:30 Fungal Culture - Preliminary Bronchoalviolar Lavage - Left 08/21/21 10:02 Blood Culture - Preliminary Blood No Growth after 72 hours 08/21/21 10:17 Blood Culture - Preliminary Blood No Growth after 72 hours Assessment and Plan (1) Bilateral pleural effusion Current Visit: Yes Status: Acute Code(s): J90 - PLEURAL EFFUSION, NOT ELSEWHERE CLASSIFIED SNOMED Code(s): 393954238 (2) COPD with exacerbation Current Visit: Yes Status: Acute Code(s): J44.1 - CHRONIC OBSTRUCTIVE PULMONARY DISEASE W (ACUTE) EXACERBATION SNOMED Code(s): 812401600 (3) Febrile illness, acute Current Visit: Yes Status: Acute Code(s): R50.9 - FEVER, UNSPECIFIED SNOMED Code(s): 052935311 (4) Hyponatremia Current Visit: Yes Status: Acute Code(s): E87.1 - HYPO-OSMOLALITY AND HYPONATREMIA SNOMED Code(s): 61013743 (5) Lung cancer Current Visit: Yes Status: Chronic Priority: Medium Code(s): C34.90 - MALIGNANT NEOPLASM OF UNSP PART OF UNSP BRONCHUS OR LUNG SNOMED Code(s): 473765853 (6) Acute respiratory failure with hypoxia Current Visit: No Status: Acute Code(s): J96.01 - ACUTE RESPIRATORY FAILURE WITH HYPOXIA SNOMED Code(s): 92362091 (7) Anemia Current Visit: No Status: Acute Code(s): D64.9 - ANEMIA, UNSPECIFIED SNOMED Code(s): 217979420 (8) Compression fracture of T6 vertebra Current Visit: No Status: Acute Code(s): S22.050A - WEDGE COMPRESSION FRACTURE OF T5-T6 VERTEBRA, INIT SNOMED Code(s): 603448214 (9) History of nicotine dependence Current Visit: No Status: Acute Code(s): Z87.891 - PERSONAL HISTORY OF NICOTINE DEPENDENCE SNOMED Code(s): 798060284 (10) History of prostate cancer Current Visit: No Status: Acute Code(s): Z85.46 - PERSONAL HISTORY OF MALIGNANT NEOPLASM OF PROSTATE SNOMED Code(s): 278304331 (11) Leukocytosis Current Visit: No Status: Acute Code(s): D72.829 - ELEVATED WHITE BLOOD CELL COUNT, UNSPECIFIED SNOMED Code(s): 725820117 (12) Compression fracture of L1 lumbar vertebra Current Visit: No Status: Chronic Code(s): S32.010A - WEDGE COMPRESSION FRACTURE OF FIRST LUMBAR VERTEBRA, INIT SNOMED Code(s): 526438900 Plan: Continue medications previous prescribed IV antibiotics continue cefepime and Bactrim GI prophylaxis covered by [employer] Repeat labs in a.m. We'll continue to monitor vitals and labs and treat accordingly We'll reassess again tomorrow Time with Patient: Greater than 30
--- NOTE | 2021-08-25 11:43 | P.PN ---
Subjective Progress Note Date: 08/25/21 Principal diagnosis: Acute on chronic hypoxic respiratory failure This is a 75-year-old male patient who is coming in today to the emergency for another episodes of worsening shortness of breath. He is well-known to me. He is known to have chronic dyspnea and advanced COPD with an FEV1 of 34% of predicted. He is also a case of metastatic adenocarcinoma consistent of a lung primary that was originally diagnosed on 05/10/2020. At that time the patient presented to us with a large pericardial effusion and required drainage and the fluid was consistent with adenocarcinoma. Since then, the patient underwent further investigation including a PET scan that showed uptake within a lymph node in the right supraclavicular area and the hilar area. He was started on systemic chemotherapy using carboplatinum and Alimta. He also received immunotherapy during the course of his treatment. At one point, the patient was receiving immunotherapy and due to concern of his worsening shortness of breath, the immunotherapy has been discontinued and currently is on a Alimta mainte nance. The patient received his last dose of Alimta approximately 5 days ago. He is coming in today with worsening shortness of breath, cough and congestion and hypoxemia. At home is maintained on oxygen at 2 L per minute nasal cannula. Noted during his last hospitalization, the patient is COPD exacerbation his sputum was positive for stenotrophomonas. We ended up putting this patient on Bactrim and sent home on a prednisone burst taper. As the patient completed the course of antibiotics and steroids, his breathing got worse. The chest x-ray from today showing bilateral pleural effusion, worse on the left and there is some vague limited infiltration of the lung bases mainly consistent with some increased pulmonary vascular congestion. His previous echocardiogram was essentially within normal and the patient has a preserved LV function. His most recent computed tomography scan of the chest was done on 07/28/2021 and the patient was found to have advanced COPD with emphysematous changes bilaterally. There was also evidence of bilateral pleural effusion worse on the left and some atelectatic changes in lung bases bilaterally. There was no evidence of any pulmonary embolism. There was progression a T6 compression fracture and an old L1 compression fracture. No hilar masses. No filling defects. No pericardial effusion was seen. For now, the patient is having difficulty in breathing. He is currently on oxygen at 2 L his current pulse ox is 97%. He continues to have a very congested cough. His blood work shows a hemoglobin of 10.6 with a white cell count of 5.7. Platelet count is at 87. Normal coagulation profile. Creatinine is at 1.3. Sodium is at 132. ProBNP level is at 880. The pro calcitonin LEVEL HAS NOT BEEN CHECKED. CPK IS LESS THAN 20. THE REST OF THE ELECTROLYTES INCLUDING CALCIUM AND POTASSIUM ARE WITHIN NORMAL LIMITS. LIVER FUNCTION TESTS ARE ALSO WITHIN NORMAL LIMITS. The patient is seen today 08/22/2021 and follow-up in the emergency department. He is awake and alert in no acute distress. Breathing a bit easier today compared to yesterday. Continues with a loose productive cough. Culture pending. He is maintaining O2 saturations in the mid 90s on 4 L/m per nasal cannula. He is heme hemodynamically stable. He's afebrile. He's been initiated on DuoNeb inhalations, Pulmicort and Perforomist inhalations, IV Solu-Medrol, Mucinex. IV diuretics. In about eczema form of cefepime and Bactrim. 08/23/2021, the patient remains bronchospastic and wheezy and short of breath and he continues to have a congested cough. Not producing a lot of sputum. Nevertheless, his cough is quite congested. He was able to give me a sputum sample milligrams is positive for many gram-negative bacilli, final culture are still pending.The patient remains on a combination of cefepime and Bactrim. He is on Pulmicort and Perforomist nebulized treatments twice a day and he is also on IV Solu-Medrol. He remains on Lasix. There are bilateral pleural effusion. The pleural fluid marking was done via ultrasound. On 08/24/2021, the patient is essentially the same. Limited improvement since yesterday. The patient has become slightly hypovolemic and sodium level is down to 126. As such, the diuretics were discontinued. Her symptoms the patient continues to have copious respiratory secretions. The plan is to proceed with a bronchoscopy and a aspiration of the bronchial secretions for further cultures and analysis. The patient was unable to bring up much of sputum over the past 24 hours. The he remains on a combination of cefepime and Bactrim. He is also on examination Perforomist and Pulmicort nebulized treatments twice a day and DuoNeb nebulized.. Pleural effusions. No other complaints otherwise for now. On examination he has developed some oropharyngeal candidiasis. During the bronchoscopy from this morning the patient was found to have copious amount of brownish thick purulent respiratory secretions. These were suctioned out. Also noted involving the pharynx and upper airways. Diflucan will be added. Meanwhile, the patient will be given a combination of cefepime and Bactrim. The patient is seen today on 08/25/2021 in follow-up on the regular medical floor. He is currently sitting up in bed. Awake and alert in no acute distress. He is continuing to have productive sputum of brown-colored phlegm. Loose productive cough. Continue O2 saturations in the low 90s on 8 L high flow nasal cannula. He's been afebrile. Hemodynamically stable. He did undergo bronchoscopy with BAL yesterday. Cultures are pending. Initial sputum cultures positive for pseudomonas aeruginosa. Sodium 127. Potassium 4.0. Bicarb 35. Creatinine 1.10. Glucose 128. He remains on DuoNeb inhalations, Pulmicort and Perforomist inhalations, IV Solu-Medrol. Antibiotics in the form of cefepime and Bactrim. CBC pending. Objective - Vital Signs Vital signs: Vital Signs Temp 98.2 F 08/25/21 08:48 Pulse 86 08/25/21 08:48 Resp 20 08/25/21 08:48 BP 135/86 08/25/21 08:48 Pulse Ox 92 L 08/25/21 09:10 Intake & Output 08/24/21 08/25/21 08/25/21 18:59 06:59 18:59 Intake Total 586 Output Total 300 Balance 286 Intake: IV 350 Oral 236 Output: Urine 300 Other: Voiding Method Urinal Urinal Urinal # Voids 3 - Exam GENERAL EXAM: Alert, very pleasant 75-year-old gentleman, on 8 L nasal cannula, fairly comfortable in no apparent distress. HEAD: Normocephalic. EYES: Normal reaction of pupils, equal size. NOSE: Clear with pink turbinates. THROAT: No erythema or exudates. NECK: No masses, no JVD. CHEST: No chest wall deformity. LUNGS: Equal air entry with bilateral scattered rhonchi, end expiratory wheeze, diminished. CVS: S1 and S2 normal with no audible murmur, regular rhythm. ABDOMEN: No hepatosplenomegaly, normal bowel sounds, no guarding or rigidity. SPINE: No scoliosis or deformity SKIN: No rashes CENTRAL NERVOUS SYSTEM: No focal deficits, tone is normal in all 4 extremities. EXTREMITIES: There is no peripheral edema. No clubbing, no cyanosis. Peripheral pulses are intact. - Labs CBC & Chem 7: 08/24/21 05:46 08/25/21 06:26 Labs: Abnormal Lab Results - Last 24 Hours (Table) 08/25/21 Range/Units 06:26 Sodium 127 L (137-145) mmol/L Chloride 89 L (98-107) mmol/L Carbon Dioxide 35 H (22-30) mmol/L BUN 44 H (9-20) mg/dL Glucose 128 H (74-99) mg/dL Microbiology - Last 24 Hours (Table) 08/22/21 11:24 Gram Stain - Final Sputum Sputum Culture - Final Pseudomonas aeruginosa 08/24/21 14:30 Gram Stain - Preliminary Bronchoalviolar Lavage - Left Bronchial Washings Culture - Preliminary 08/24/21 14:30 Acid Fast Bacilli Culture - Preliminary Bronchoalviolar Lavage - Left 08/24/21 14:30 Fungal Culture - Preliminary Bronchoalviolar Lavage - Left 08/21/21 10:02 Blood Culture - Preliminary Blood No Growth after 72 hours 08/21/21 10:17 Blood Culture - Preliminary Blood No Growth after 72 hours Assessment and Plan Assessment: 1 Acute COPD exacerbation, and the patient is presenting for another episode of worsening shortness of breath, chest congestion and increased difficulty in breathing and hypoxemia and currently is on 4 L of oxygen by nasal cannula. The prior sputum culture was positive for stenotrophomonas maltophilia. The patient will be treated again with combination of of cefepime and Bactrim. Sputum culture again positive for pseudomonas aeruginosa. He did undergo bronchoscopy with BAL on 08/24/2021. Cultures are pending. 2 Acute on chronic hypoxic respiratory failure secondary to the above, wears 2.5 L nasal cannula at home 3 Mild pulmonary hypertension, normal LV function 4 History of metastatic adenocarcinoma of the lungs, last chemotherapy treatment with Alimta 08/15/2021 5 History of malignant pericardial effusion status post systemic chemotherapy wi th Alimta and the patient is off immunotherapy 6 Compression fracture of T6 , acute 7 Compression fracture of L1, chronic 8 Severe COPD, stage III 9 History of prostate cancer 10 REM sleep behavior disorder 11 Mild obstructive sleep apnea, not on CPAP at home 12 History of tobacco dependence, quit 04/2020 13 Claustrophobic 14 History of shingles 13 Thrombocytopenia Plan: The patient was seen and evaluated by Dr. Nicole Continue cefepime and Bactrim for now He did undergo bronchoscopy with BAL and 08/24/2021, cultures pending CBC pending for today Continue bronchodilators,IV Solu-Medrol, Mucinex Titrate the FiO2 as tolerated We will continue to follow and make further recommendations based on his clinical status I, the cosigning physician, performed a history & physical examination of the patient. Lungs sounds bilateral end expiratory wheeze, scattered rhonchi, diminished. Maintaining good O2 saturations in the 90s on 8 L/m per nasal cannula. I discussed the assessment and plan of care with my nurse practitioner, Linh Way. I attest to the above note as dictated by her.
[2021-08-25] MEDS: POTASSIUM CHLORIDE ER 20 MEQ TAB.ER PO SCH (12:52)
[2021-08-25 13:37] LABS: Basophils # (A) 0.03 X 10*3/uL (0.00-0.10); Basophils % (A) 0.3 %; Eosinophils # (A) 0 X 10*3/uL (0.04-0.35); Eosinophils % (A) 0 %; HCT 24.9 % (39.6-50.0); Lymphocytes % (A) 1.9 %; MCH 35.4 pg (27.0-32.0); MCHC 32.1 g/dL (32.0-37.0); MCV 110.2 fL (80.0-97.0); Mean Platelet Volume 13.5 fL (9.5-12.2); Monocytes # (A) 0.32 X 10*3/uL (0.20-1.00); Neutrophils # (A) 9.61 X 10*3/uL (1.80-7.70); Neutrophils % (A) 90.9 %; Platelet Count 20 X 10*3/uL (140-440); RBC 2.26 X 10*6/uL (4.40-5.60); RDW 15.4 % (11.5-14.5); WBC 10.57 X 10*3/uL (4.50-10.00)
[2021-08-25] MEDS: clonazePAM 0.5 MG TAB PO SCH (21:34)
[2021-08-25] MEDS: Acetaminophen-Codeine 300-30mg TAB PO PRN (21:37)
[2021-08-25] MEDS: LIDOCAINE 5% PATCH TOPICAL PRN (22:32)
[2021-08-26] MEDS: CEFEPIME 2 GM in SODIUM CHLORIDE 0.9% 100 ML IVPB SCH ×2 (00:55→13:16)
[2021-08-26] MEDS: methylPREDNISolone SOD SUCCI 125 MG/2 ML VIAL IV SCH ×5 (03:36→21:02)
[2021-08-26] MEDS: IPRATROPIUM-ALBUTEROL 3 ML NEB INHALATION PRN (03:50)
[2021-08-26 06:59] LABS: ALT 26 U/L (4-49); AST 40 U/L (17-59); African American GFR (CKD) 59 (>60 ml/min/1.73 sqM); Albumin 2.4 g/dL (3.5-5.0); Albumin/Globulin Ratio 1.1; Alkaline Phosphatase 86 U/L (38-126); Anion Gap 5 mmol/L; Blood Urea Nitrogen 46 mg/dL (9-20); Calcium 8.6 mg/dL (8.4-10.2); Carbon Dioxide 33 mmol/L (22-30); Chloride 89 mmol/L (98-107); Globulin 2.2 g/dL; Glucose 140 mg/dL (74-99); Non-African American GFR(CKD) 51 (>60 ml/min/1.73 sqM); Potassium 4.4 mmol/L (3.5-5.1); Sodium 127 mmol/L (137-145); Total Bilirubin 0.3 mg/dL (0.2-1.3); Total Protein 4.6 g/dL (6.3-8.2)
[2021-08-26] MEDS: IPRATROPIUM-ALBUTEROL 3 ML NEB INHALATION SCH ×5 (08:31→21:38)
[2021-08-26] MEDS: BUDESONIDE 1 MG/2 ML NEBU INHALATION SCH ×2 (08:31→18:54)
[2021-08-26] MEDS: FORMOTEROL FUMARATE 20 MCG/2 ML NEBU INHALATION SCH ×2 (08:31→18:54)
[2021-08-26] MEDS: PANTOPRAZOLE 40 MG TABLET PO SCH ×2 (09:14→21:02)
[2021-08-26] MEDS: FOLIC ACID 1 MG TAB PO SCH (09:14)
[2021-08-26] MEDS: POTASSIUM CHLORIDE ER 20 MEQ TAB.ER PO SCH (09:14)
[2021-08-26] MEDS: SENNOSIDES-DOCUSATE SODIUM 1 EACH TAB PO SCH ×2 (09:14→21:02)
[2021-08-26] MEDS: METOPROLOL SUCCINATE (ER) 25 MG TAB.ER.24H PO SCH (09:14)
[2021-08-26] MEDS: guaiFENesin 600 MG TABLET.ER PO SCH ×2 (09:14→21:02)
[2021-08-26] MEDS: MULTIVITAMINS, THERA 1 EACH TAB PO SCH (09:14)
[2021-08-26] MEDS: SULFAMETHOX-TMP 800-160MG 1 EACH TAB PO SCH (09:52)
[2021-08-26] MEDS: SODIUM CHLORIDE 0.9% 1,000 ML IV SCH (09:53)
[2021-08-26 10:24] LABS: Basophils # (A) 0.02 X 10*3/uL (0.00-0.10); Basophils % (A) 0.3 %; Eosinophils # (A) 0 X 10*3/uL (0.04-0.35); Eosinophils % (A) 0 %; Lymphocytes # (A) 0.09 X 10*3/uL (0.90-5.00); Lymphocytes % (A) 1.2 %; Monocytes # (A) 0.29 X 10*3/uL (0.20-1.00); Monocytes % (A) 3.9 %; Neutrophils # (A) 6.85 X 10*3/uL (1.80-7.70); Neutrophils % (A) 92.6 %
[2021-08-26 10:25] LABS: HCT 24.5 % (39.6-50.0); MCH 36.4 pg (27.0-32.0); MCHC 32.7 g/dL (32.0-37.0); MCV 111.4 fL (80.0-97.0); Macrocytosis (M) 2+; Mean Platelet Volume 13.4 fL (9.5-12.2); Platelet Count 19 X 10*3/uL (140-440); RDW 15.2 % (11.5-14.5)
--- NOTE | 2021-08-26 11:38 | P.PN ---
Rafat curtis is a pleasant white male,with a known history of COPD and smoking. He was found to have pericardial effsusion last year along with bilateral lower extremity edema . The patient had percutaneous pericardial drainage of 05/10/20 with cytology positive for metastatic adenocarcinoma, consistent with lung or upper GI primary. Patient had a prior history of prostate cancer with a radical prostatectomy in 03/12. PSA was normal recently. He had multiple tests including MRI, PET , colonoscopy failing to show other etiology. He was discontinued on immunotherapy and is been undergoing chemotherapy only. He is currently being followed by and Dr Trejo for the lung cancer, however there is no significant primary tumor found.. He came to the emergency room one day ago with complaints of increasing shortness of breath over the past 2 days. He denies any current chest pains, pressures. Complains of shortness of breath. He denies any nausea or vomiting. Appetite remains poor. He has a known T6 compression fracture along the L1 compression fracture. MAXIMUM TEMPERATURE is 101.3 yesterday afternoon. Oxygen saturation has improved since he's remained in the ER due to bed shortage. Originally 92% currently at 96% on 4 L via nasal cannula. Labs show hemoglobin 10.6. MCV of 111.5. He has marketed macrocytosis. Chemistry showed a sodium 132 and a GFR now of 54. Total protein is 5.7 albumin 3.2. Blood cultures are negative so far 2 Chest x-ray shows bilateral pleural effusions with scattered areas of patchy infiltrate no evidence of overt failure. Dr. Lea is very seen the patient and his recommendations of updrafts IV cefepime and Bactrim along with sputum cultures Lasix IV Solu-Medrol and Perf oromist Pulmicort were noted. They're considering bronchoscopy 08/23/2021: Patient denies any chest pains, pressures, nausea or vomiting. Shortness of breath is improved. He remains on 4 L O2 and pulse oximetry is running 93%. Heart rate is minimally tachycardic at 113. MAXIMUM TEMPERATURE is 99.3F Labs her studies show his sodium is 129 BUN 41 creatinine 1.23 GFR is 58. An easy him is 2.0. Ultrasound of the chest was done marking both right and left lungs for possible thoracentesis with Dr. Lea. Pulmonology is following. The recommendations were reviewed today. Patient remains on Pulmicort, fluticasone, Perforomist, DuoNeb updrafts, Solu- Medrol, cefepime antibiotic coverage 08/24/2021: Patient is awake and alert. His is at bedside. He denies any chest pains or pressures this time he denies any nausea or vomiting. Indicates foods very good and his appetite has not been great eater. He does feel short of breath. He remains on oxygen at 4 L/m via nasal cannula pulse ox 95%. Blood pressure temperature remained stable is a no-show and that out of 1750 ML's yesterday. Labs show hemoglobin 8.0. Platelets are 28. Sodium is now 126. GFR is 51. Serum cultures were obtained by pulmonology are pending. Hematology oncology is following as well. There were on 08/17/2021 he had cycle 14 of Alimta with GCSF. He continues to complain of swelling of his right arm that is distal from his IV site. Also he is wearing his compression hose today. Continues to have edema of the lower extremities. 08/25/2021 patient is comfortable in bed at this time in bed at this time. Only complaint he has is feeling short of breath which she recently received a breathing treatment and an increase in oxygen from 5 L nasal cannula high flow to 8 L high flow. He denies nausea, vomiting, diarrhea, chest pain or pressure, or visual changes at this time. Vital signs stable with a pulse ox maintaining 92% on the liters. Chemistry reveals sodium 127, potassium 4.0, albumin of 44, creatinine 1.1 and glucose of 128. Patient is on cefepime 2 g every 12 hours IV, Bactrim DS, and steroids. Patient is post procedure day 1 for bronchoscopy where copious amounts of beige purulent secretions suctioned from bilateral lungs. Patient did present a washcloth with a long clot that he pulled from the back of his throat late last night. He states that he could feel it come from his sinus cavity, but has had no active bleeding since. Mild edema noted bilateral lower extremities but compression hose are in place this time. 08/26/2021: Patient is found to chair. Apparently yesterday he had some respiratory distress and his oxygen level was increased to 10 L/m. Most recent pulse ox 92%. He remains borderline tachycardic. Laboratory studies shows hem oglobin remains 8.0. His platelets have now dropped to 19. Chemistries continue to show hyponatremia 127. GFR is currently now 51. CO2 is 33. Sputum cultures from 929 showed Pseudomonas and Tonja. Blood cultures remained negative. Acid-fast bacilli cultures on 08/24 focal cultures are pending. From bronchial lavage. He underwent bronchoscopy on 08/24/2021 for therapeutic airway suctioning. The patient indicates he coughed up a little bit better since the procedure. He today complains of some bloody mucus most likely from his nose is indicates is running down the back of the throat is able to cough it up. We do note that his oxygen is humidified. He currently denies any chest pains or pressures. Denies any nausea or vomiting. Tolerating his diet. He'll supplement shakes currently on his tray. He is very concerned about being discharged before doing better. Objective - Vital Signs Vital signs: Vital Signs Temp 97.6 F 08/26/21 08:30 Pulse 102 H 08/26/21 08:50 Resp 22 08/26/21 08:30 BP 133/65 08/26/21 08:30 Pulse Ox 92 L 08/26/21 08:36 Intake & Output 08/25/21 08/26/21 08/26/21 18:59 06:59 18:59 Intake Total 1080 Output Total 600 250 Balance 480 -250 Intake: Oral 1080 Output: Urine 600 250 Other: Voiding Method Urinal Urinal # Voids 1 1 - Exam GENERAL: thin and in no acute distress. NECK: Normal range of motion, supple without lymphadenopathy or JVD, no thyromegaly LUNGS: Breath sounds are somewhat coarse, but improved from previous exam. There is less rhonchi but better air exchange. HEART: Regular rate and rhythm without murmurs, rubs or gallops.S1S2 Normal ABDOMEN: Soft, nontender, normoactive bowel sounds. No guarding, no rebound. No masses appreciated. EXTREMITIES: Normal range of motion, no pitting or edema. No clubbing or cyanosis. NEUROLOGICAL: Cranial nerves II through XII grossly intact. Normal speech, normal gait. PSYCH: Normal mood, normal affect. SKIN: Warm, Dry, normal turgor, mild blanchable erythema noted to his lower extremities. - Labs CBC & Chem 7: 08/26/21 05:49 08/26/21 05:49 Labs: Abnormal Lab Results - Last 24 Hours (Table) 08/25/21 08/26/21 08/26/21 Range/Units 06:26 05:49 05:49 WBC 10.57 H (4.50-10.00) X 10*3/uL RBC 2.26 L 2.20 L (4.40-5.60) X 10*6/uL Hgb 8.0 L 8.0 L (13.0-17.0) g/dL Hct 24.9 L 24.5 L (39.6-50.0) % MCV 110.2 H 111.4 H (80.0-97.0) fL MCH 35.4 H 36.4 H (27.0-32.0) pg RDW 15.4 H 15.2 H (11.5-14.5) % Plt Count 20 L 19 L* (140-440) X 10*3/uL Plt Count Comment A A MPV 13.5 H 13.4 H (9.5-12.2) fL Absolute Nucleated RBC 0.02 H (0.00-0.00) X 10*3/uL Immature Gran # 0.41 H 0.15 H (0.00-0.04) X 10*3/uL Neutrophils # 9.61 H (1.80-7.70) X 10*3/uL Lymphocytes # 0.20 L 0.09 L (0.90-5.00) X 10*3/uL Eosinophils # 0 L 0 L (0.04-0.35) X 10*3/uL NRBC/100 WBC Diff 0.2 H (0.0-0.0) /100 WBCS Immature Plt Fraction 14.9 H 14.4 H (1.1-6.1) % Sodium 127 L (137-145) mmol/L Chloride 89 L (98-107) mmol/L Carbon Dioxide 33 H (22-30) mmol/L BUN 46 H (9-20) mg/dL Creatinine 1.35 H (0.66-1.25) mg/dL Glucose 140 H (74-99) mg/dL Total Protein 4.6 L (6.3-8.2) g/dL Albumin 2.4 L (3.5-5.0) g/dL Microbiology - Last 24 Hours (Table) 08/24/21 14:30 Gram Stain - Final Bronchoalviolar Lavage - Left Bronchial Washings Culture - Final Tonja albicans 08/24/21 14:30 Acid Fast Bacilli Smear - Final Bronchoalviolar Lavage - Left Acid Fast Bacilli Culture - Preliminary 08/21/21 10:02 Blood Culture - Preliminary Blood No Growth after 96 hours 08/21/21 10:17 Blood Culture - Preliminary Blood No Growth after 96 hours 08/22/21 11:24 Gram Stain - Final Sputum Sputum Culture - Final Pseudomonas aeruginosa Assessment and Plan (1) Acute respiratory failure with hypoxia Current Visit: No Status: Acute Code(s): J96.01 - ACUTE RESPIRATORY FAILURE WITH HYPOXIA SNOMED Code(s): 29782440 (2) Bilateral pleural effusion Current Visit: Yes Status: Acute Code(s): J90 - PLEURAL EFFUSION, NOT ELSEWH ERE CLASSIFIED SNOMED Code(s): 017556622 (3) COPD with exacerbation Current Visit: Yes Status: Acute Code(s): J44.1 - CHRONIC OBSTRUCTIVE PULMONARY DISEASE W (ACUTE) EXACERBATION SNOMED Code(s): 612007852 (4) Febrile illness, acute Current Visit: Yes Status: Acute Code(s): R50.9 - FEVER, UNSPECIFIED SNOMED Code(s): 178095828 (5) Lung cancer Current Visit: Yes Status: Chronic Priority: Medium Code(s): C34.90 - MALIGNANT NEOPLASM OF UNSP PART OF UNSP BRONCHUS OR LUNG SNOMED Code(s): 004493061 (6) Anemia Current Visit: No Status: Acute Code(s): D64.9 - ANEMIA, UNSPECIFIED SNOMED Code(s): 862937690 (7) Compression fracture of T6 vertebra Current Visit: No Status: Acute Code(s): S22.050A - WEDGE COMPRESSION FRACTURE OF T5-T6 VERTEBRA, INIT SNOMED Code(s): 232112049 (8) History of nicotine dependence Current Visit: No Status: Acute Code(s): Z87.891 - PERSONAL HISTORY OF NICOTINE DEPENDENCE SNOMED Code(s): 220966306 (9) History of prostate cancer Current Visit: No Status: Acute Code(s): Z85.46 - PERSONAL HISTORY OF MALIGNANT NEOPLASM OF PROSTATE SNOMED Code(s): 561257923 (10) Leukocytosis Current Visit: No Status: Acute Code(s): D72.829 - ELEVATED WHITE BLOOD CELL COUNT, UNSPECIFIED SNOMED Code(s): 814009178 (11) Compression fracture of L1 lumbar vertebra Current Visit: No Status: Chronic Code(s): S32.010A - WEDGE COMPRESSION FRACTURE OF FIRST LUMBAR VERTEBRA, INIT SNOMED Code(s): 340495736 (12) Hyponatremia Current Visit: Yes Status: Acute Code(s): E87.1 - HYPO-OSMOLALITY AND HYPONATREMIA SNOMED Code(s): 40878062 (13) Thrombocytopenia Current Visit: Yes Status: Acute Code(s): D69.6 - THROMBOCYTOPENIA, UNSPECIFIED SNOMED Code(s): 262617735 Plan: He continues on his Pulmicort, fluticasone, performance, DuoNeb, methylprednisolone, for COPD exacerbation. He remains on IV antibiotics of cefepime The Bactrim has been discontinued possibly causing the trauma cytopenia. pantoprazole for GI prophylaxis. Continue, Klonopin. For anxiety Repeat labs in a.m., Defer to hematology regarding need for platelet soon He'll be reevaluated next 24 hours.
[2021-08-26 11:55] LABS: Partial Thromboplastin Time 22.8 sec (22.0-30.0)
--- NOTE | 2021-08-26 13:27 | P.PN ---
Subjective Progress Note Date: 08/26/21 This is a 75-year-old male patient who is coming in today to the emergency for another episodes of worsening shortness of breath. He is well-known to me. He is known to have chronic dyspnea and advanced COPD with an FEV1 of 34% of predicted. He is also a case of metastatic adenocarcinoma consistent of a lung primary that was originally diagnosed on 05/10/2020. At that time the patient presented to us with a large pericardial effusion and required drainage and the fluid was consistent with adenocarcinoma. Since then, the patient underwent further investigation including a PET scan that showed uptake within a lymph node in the right supraclavicular area and the hilar area. He was started on s ystemic chemotherapy using carboplatinum and Alimta. He also received immunotherapy during the course of his treatment. At one point, the patient was receiving immunotherapy and due to concern of his worsening shortness of breath, the immunotherapy has been discontinued and currently is on a Alimta maintenance. The patient received his last dose of Alimta approximately 5 days ago. He is coming in today with worsening shortness of breath, cough and congestion and hypoxemia. At home is maintained on oxygen at 2 L per minute nasal cannula. Noted during his last hospitalization, the patient is COPD exacerbation his sputum was positive for stenotrophomonas. We ended up putting this patient on Bactrim and sent home on a prednisone burst taper. As the patient completed the course of antibiotics and steroids, his breathing got worse. The chest x-ray from today showing bilateral pleural effusion, worse on the left and there is some vague limited infiltration of the lung bases mainly consistent with some increased pulmonary vascular congestion. His previous echocardiogram was essentially within normal and the patient has a preserved LV function. His most recent computed tomography scan of the chest was done on 07/28/2021 and the patient was found to have advanced COPD with emphysematous changes bilaterally. There was also evidence of bilateral pleural effusion worse on the left and some atelectatic changes in lung bases bilaterally. There was no evidence of any pulmonary embolism. There was progression a T6 compression fracture and an old L1 compression fracture. No hilar masses. No filling defects. No pericardial effusion was seen. For now, the patient is having difficulty in breathing. He is currently on oxygen at 2 L his current pulse ox is 97%. He continues to have a very congested cough. His blood work shows a hemoglobin of 10.6 with a white cell count of 5.7. Platelet count is at 87. Normal coagulation profile. Creatinine is at 1.3. Sodium is at 132. ProBNP level is at 880. The pro calcitonin LEVEL HAS NOT BEEN CHECKED. CPK IS LESS THAN 20. THE REST OF THE ELECTROLYTES INCLUDING CALCIUM AND POTASSIUM ARE WITHIN NORMAL LIMITS. LIVER FUNCTION TESTS ARE ALSO WITHIN NORMAL LIMITS. The patient is seen today 08/22/2021 and follow-up in the emergency department. He is awake and alert in no acute distress. Breathing a bit easier today co mpared to yesterday. Continues with a loose productive cough. Culture pending. He is maintaining O2 saturations in the mid 90s on 4 L/m per nasal cannula. He is heme hemodynamically stable. He's afebrile. He's been initiated on DuoNeb inhalations, Pulmicort and Perforomist inhalations, IV Solu-Medrol, Mucinex. IV diuretics. In about eczema form of cefepime and Bactrim. 08/23/2021, the patient remains bronchospastic and wheezy and short of breath and he continues to have a congested cough. Not producing a lot of sputum. Nevertheless, his cough is quite congested. He was able to give me a sputum sample milligrams is positive for many gram-negative bacilli, final culture are still pending.The patient remains on a combination of cefepime and Bactrim. He is on Pulmicort and Perforomist nebulized treatments twice a day and he is also on IV Solu-Medrol. He remains on Lasix. There are bilateral pleural effusion. The pleural fluid marking was done via ultrasound. On 08/24/2021, the patient is essentially the same. Limited improvement since yesterday. The patient has become slightly hypovolemic and sodium level is down to 126. As such, the diuretics were discontinued. Her symptoms the patient continues to have copious respiratory secretions. The plan is to proceed with a bronchoscopy and a aspiration of the bronchial secretions for further cultures and analysis. The patient was unable to bring up much of sputum over the past 24 hours. The he remains on a combination of cefepime and Bactrim. He is also on examination Perforomist and Pulmicort nebulized treatments twice a day and DuoNeb nebulized.. Pleural effusions. No other complaints otherwise for now. On examination he has developed some oropharyngeal candidiasis. During the bronchoscopy from this morning the patient was found to have copious amount of brownish thick purulent respiratory secretions. These were suctioned out. Also noted involving the pharynx and upper airways. Diflucan will be added. Meanwhile, the patient will be given a combination of cefepime and Bactrim. 08/26/2021, I'm seeing the patient for a follow-up. Still short of breath. Hypoxic still having significant respiratory distress. Limited improvement over the past 24 hours. In terms of oxygen requirements the patient is currently on 10 L of oxygen by nasal cannula to maintain saturation above 90%. His current pulse ox 92%. Afebrile. Slightly tachycardic. Breathing is not labored at rest. Trying to cough and bring up some sputum. The sputum samples and the bronchioloalveolar lavage indicated pseudomonas aeruginosa and the patient remains on IV cefepime. Bactrim has been discontinued for now. In terms of his hematologic profile, the patient has a white cell count of 7.4 with a hemoglobin of 8. Platelet counts are still low at 19 and the patient was seen by hematology oncology and the platelet transfusion will be given to him. His sodium level remains low at 127. Creatinine is at 1.3. PTT is at 22.8. Fibrinogen is 635. Remains on bronchodilators. Remains on IV Solu-Medrol. Diuretics has been placed on hold based on development of an acute kidney injury with a creatinine of 1.3 an underlying hyponatremia. Objective - Vital Signs Vital signs: Vital Signs Temp 97.6 F 08/26/21 08:30 Pulse 102 H 08/26/21 08:50 Resp 22 08/26/21 08:30 BP 133/65 08/26/21 08:30 Pulse Ox 92 L 08/26/21 08:36 Intake & Output 08/25/21 08/26/21 08/26/21 18:59 06:59 18:59 Intake Total 1080 Output Total 600 250 Balance 480 -250 Intake: Oral 1080 Output: Urine 600 250 Other: Voiding Method Urinal Urinal # Voids 1 1 - Exam GENERAL EXAM: Alert, very pleasant 75-year-old gentleman, I was noted that the patient's oxygen requirements was higher and He was up to 10 L of oxygen by nasal cannula to maintain saturation above 90. HEAD: Normocephalic. EYES: Normal reaction of pupils, equal size. NOSE: Clear with pink turbinates. THROAT: No erythema or exudates. NECK: No masses, no JVD. CHEST: No chest wall deformity. LUNGS: Equal air entry with bilateral scattered rhonchi, end expiratory wheeze, diminished. CVS: S1 and S2 normal with no audible murmur, regular rhythm. ABDOMEN: No hepatosplenomegaly, normal bowel sounds, no guarding or rigidity. SPINE: No scoliosis or deformity SKIN: No rashes CENTRAL NERVOUS SYSTEM: No focal deficits, tone is normal in all 4 extremities. EXTREMITIES: There is no peripheral edema. No clubbing, no cyanosis. Peripheral pulses are intact. - Labs CBC & Chem 7: 08/26/21 05:49 08/26/21 05:49 Labs: Abnormal Lab Results - Last 24 Hours (Table) 08/25/21 08/26/21 08/26/21 Range/Units 06:26 05:49 05:49 WBC 10.57 H (4.50-10.00) X 10*3/uL RBC 2.26 L 2.20 L (4.40-5.60) X 10*6/uL Hgb 8.0 L 8.0 L (13.0-17.0) g/dL Hct 24.9 L 24.5 L (39.6-50.0) % MCV 110.2 H 111.4 H (80.0-97.0) fL MCH 35.4 H 36.4 H (27.0-32.0) pg RDW 15.4 H 15.2 H (11.5-14.5) % Plt Count 20 L 19 L* (140-440) X 10*3/uL Plt Count Comment A A MPV 13.5 H 13.4 H (9.5-12.2) fL Absolute Nucleated RBC 0.02 H (0.00-0.00) X 10*3/uL Immature Gran # 0.41 H 0.15 H (0.00-0.04) X 10*3/uL Neutrophils # 9.61 H (1.80-7.70) X 10*3/uL Lymphocytes # 0.20 L 0.09 L (0.90-5.00) X 10*3/uL Eosinophils # 0 L 0 L (0.04-0.35) X 10*3/uL NRBC/100 WBC Diff 0.2 H (0.0-0.0) /100 WBCS Immature Plt Fraction 14.9 H 14.4 H (1.1-6.1) % Fibrinogen (200-500) mg/dL Sodium 127 L (137-145) mmol/L Chloride 89 L (98-107) mmol/L Carbon Dioxide 33 H (22-30) mmol/L BUN 46 H (9-20) mg/dL Creatinine 1.35 H (0.66-1.25) mg/dL Glucose 140 H (74-99) mg/dL Total Protein 4.6 L (6.3-8.2) g/dL Albumin 2.4 L (3.5-5.0) g/dL 08/26/21 Range/Units 11:18 WBC (4.50-10.00) X 10*3/uL RBC (4.40-5.60) X 10*6/uL Hgb (13.0-17.0) g/dL Hct (39.6-50.0) % MCV (80.0-97.0) fL MCH (27.0-32.0) pg RDW (11.5-14.5) % Plt Count (140-440) X 10*3/uL Plt Count Comment MPV (9.5-12.2) fL Absolute Nucleated RBC (0.00-0.00) X 10*3/uL Immature Gran # (0.00-0.04) X 10*3/uL Neutrophils # (1.80-7.70) X 10*3/uL Lymphocytes # (0.90-5.00) X 10*3/uL Eosinophils # (0.04-0.35) X 10*3/uL NRBC/100 WBC Diff (0.0-0.0) /100 WBCS Immature Plt Fraction (1.1-6.1) % Fibrinogen 635 H (200-500) mg/dL Sodium (137-145) mmol/L Chloride (98-107) mmol/L Carbon Dioxide (22-30) mmol/L BUN (9-20) mg/dL Creatinine (0.66-1.25) mg/dL Glucose (74-99) mg/dL Total Protein (6.3-8.2) g/dL Albumin (3.5-5.0) g/dL Microbiology - Last 24 Hours (Table) 08/21/21 10:02 Blood Culture - Preliminary Blood No Growth after 120 hours 08/21/21 10:17 Blood Culture - Preliminary Blood No Growth after 120 hours 08/24/21 14:30 Gram Stain - Final Bronchoalviolar Lavage - Left Bronchial Washings Culture - Final Tonja albicans 08/24/21 14:30 Acid Fast Bacilli Smear - Final Bronchoalviolar Lavage - Left Acid Fast Bacilli Culture - Preliminary 08/22/21 11:24 Gram Stain - Final Sputum Sputum Culture - Final Pseudomonas aeruginosa Assessment and Plan Plan: 1 Acute COPD exacerbation, and the patient is presenting for another episode of worsening shortness of breath, chest congestion and increased difficulty in breathing and hypoxemia and currently is on 10 L of oxygen by nasal cannula. The prior sputum culture was positive for stenotrophomonas maltophilia. The patient will be treated again with combination of of cefepime and Bactrim. The patient showed limited clinical improvement over the past 24-48 hours. Based on that, the patient underwent a bronchoscopy with therapeutic it was suctioning an d removal of purulent respiratory secretions and cultures will be recent. Meanwhile, his oxygen requirements went up to 10 L per minute cannula. Bronchoscopy results are still pending. Sputum samples indicating Pseudomonas and consider Pseudomonas tracheal bronchitis/pneumonia contributing to his COPD exacerbation worsening shortness of breath. The patient currently is on IV cefepime. He has also extensive oropharyngeal candidiasis and he was started on Diflucan. 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 with Alimta and the patient is off immunotherapy 6 Compression fracture of T6 , acute 7 Compression fracture of L1, chronic 8 Severe COPD, stage III 9 History of prostate cancer 10 REM sleep behavior disorder 11 Mild obstructive sleep apnea, not on CPAP at home 12 History of tobacco dependence, quit 04/2020 13 Claustrophobic 14 History of shingles 15 bilateral pleural effusions, currently off diuretics 16 oropharyngeal candidiasis, currently on Diflucan 17 hyponatremia, stable 18 thrombocytopenia, stable Plan Continue DuoNeb nebulized treatments around the clock Check pro calcitonin level, was low at 0.2 With the patient IV cefepime and Bactrim orally and Diflucan for oropharyngeal candidiasis Bronchoscopy and therapeutic it was suctioning and bronchial aspirates were collected and the cultures still pending. Sputum analysis showed pseudomonas aeruginosa. No diuretics for now. Sodium level remains low and the patient has a component of acute kidney injury Monitor sodium levels Mother creatinine Monitor platelets and obtain a hematology consultation Oxygen to maintain saturation above 90% Mucinex DM twice a day Continue combination of Perforomist and Pulmicort nebulized twice a day IV Solu Medrol 60 g every 6 hours Check COVID-19 nasal swab, was negative Try to wean down FiO2 to maintain saturation above 90% Provide a flutter valve We'll continue to follow
--- NOTE | 2021-08-26 13:48 | P.PN ---
Subjective Progress Note Date: 08/26/21 Principal diagnosis: Lung Cancer and Positive Sputum Cultures, COPD Exacerbation Platelets continue to drop, likely related to chemo and possibly worsened from antibiotics. Bactrim stopped after discussion with Pulmonary. Objective - Vital Signs Vital signs: Vital Signs Temp 97.6 F 08/26/21 08:30 Pulse 102 H 08/26/21 08:50 Resp 22 08/26/21 08:30 BP 133/65 08/26/21 08:30 Pulse Ox 92 L 08/26/21 08:36 Intake & Output 08/25/21 08/26/21 08/26/21 18:59 06:59 18:59 Intake Total 1080 Output Total 600 250 Balance 480 -250 Intake: Oral 1080 Output: Urine 600 250 Other: Voiding Method Urinal Urinal # Voids 1 1 - Constitutional General appearance: Present: cooperative, no acute distress - EENT Eyes: Present: poor dentition ENT: Present: NA/AT - Neck Neck: Present: normal ROM - Respiratory Respiratory: bilateral: diminished, rhonchi - Cardiovascular Rhythm: regularly irregular - Gastrointestinal General gastrointestinal: Present: normal bowel sounds, soft - Integumentary Integumentary: Present: pale - Neurologic Neurologic: Present: CNII-XII intact - Musculoskeletal Musculoskeletal: Present: generalized weakness - Psychiatric Psychiatric: Present: A&O x's 3, appropriate affect, intact judgment & insight - Labs CBC & Chem 7: 08/26/21 05:49 08/26/21 05:49 Labs: Abnormal Lab Results - Last 24 Hours (Table) 08/25/21 08/26/21 08/26/21 Range/Units 06:26 05:49 05:49 WBC 10.57 H (4.50-10.00) X 10*3/uL RBC 2.26 L 2.20 L (4.40-5.60) X 10*6/uL Hgb 8.0 L 8.0 L (13.0-17.0) g/dL Hct 24.9 L 24.5 L (39.6-50.0) % MCV 110.2 H 111.4 H (80.0-97.0) fL MCH 35.4 H 36.4 H (27.0-32.0) pg RDW 15.4 H 15.2 H (11.5-14.5) % Plt Count 20 L 19 L* (140-440) X 10*3/uL Plt Count Comment A A MPV 13.5 H 13.4 H (9.5-12.2) fL Absolute Nucleated RBC 0.02 H (0.00-0.00) X 10*3/uL Immature Gran # 0.41 H 0.15 H (0.00-0.04) X 10*3/uL Neutrophils # 9.61 H (1.80-7.70) X 10*3/uL Lymphocytes # 0.20 L 0.09 L (0.90-5.00) X 10*3/uL Eosinophils # 0 L 0 L (0.04-0.35) X 10*3/uL NRBC/100 WBC Diff 0.2 H (0.0-0.0) /100 WBCS Immature Plt Fraction 14.9 H 14.4 H (1.1-6.1) % Sodium 127 L (137-145) mmol/L Chloride 89 L (98-107) mmol/L Carbon Dioxide 33 H (22-30) mmol/L BUN 46 H (9-20) mg/dL Creatinine 1.35 H (0.66-1.25) mg/dL Glucose 140 H (74-99) mg/dL Total Protein 4.6 L (6.3-8.2) g/dL Albumin 2.4 L (3.5-5.0) g/dL Microbiology - Last 24 Hours (Table) 08/24/21 14:30 Gram Stain - Final Bronchoalviolar Lavage - Left Bronchial Washings Culture - Final Tonja albicans 08/24/21 14:30 Acid Fast Bacilli Smear - Final Bronchoalviolar Lavage - Left Acid Fast Bacilli Culture - Preliminary 08/21/21 10:02 Blood Culture - Preliminary Blood No Growth after 96 hours 08/21/21 10:17 Blood Culture - Preliminary Blood No Growth after 96 hours 08/22/21 11:24 Gram Stain - Final Sputum Sputum Culture - Final Pseudomonas aeruginosa Assessment and Plan (1) Thrombocytopenia Narrative/Plan: Likely secondary to medication, will discuss with pulm for additional option in place of bactrim. Also contributing factors to monitor for DIC/Infection. Additional factors chemotherapy] Discontinued Bactrim Current Visit: Yes Status: Acute Code(s): D69.6 - THROMBOCYTOPENIA, UNSPECIFIED SNOMED Code(s): 773984721 (2) COPD with exacerbation Narrative/Plan: Per Pulmonary Current Visit: Yes Status: Acute Code(s): J44.1 - CHRONIC OBSTRUCTIVE PULMONARY DISEASE W (ACUTE) EXACERBATION SNOMED Code(s): 455030495 (3) Lung cancer Narrative/Plan: Continue on treatment plan after stabilized, discharged and cleared by Pulmonology Current Visit: Yes Status: Chronic Priority: Medium Code(s): C34.90 - MALIGNANT NEOPLASM OF UNSP PART OF UNSP BRONCHUS OR LUNG SNOMED Code(s): 832399946 Plan: Continue to monitor daily CBC Acute picture managed by Pulm and Primary team
[2021-08-26] MEDS: clonazePAM 0.5 MG TAB PO SCH (21:02)
[2021-08-26] MEDS: LIDOCAINE 5% PATCH TOPICAL PRN (21:02)
[2021-08-27] MEDS: CEFEPIME 2 GM in SODIUM CHLORIDE 0.9% 100 ML IVPB SCH ×2 (00:43→13:11)
[2021-08-27 03:05] LABS: INR 0.9 (<1.2); Prothrombin Time 9.7 sec (9.0-12.0)
[2021-08-27] MEDS: methylPREDNISolone SOD SUCCI 125 MG/2 ML VIAL IV SCH ×4 (03:48→21:44)
[2021-08-27] MEDS: IPRATROPIUM-ALBUTEROL 3 ML NEB INHALATION PRN ×2 (04:37→23:58)
[2021-08-27] MEDS: SODIUM CHLORIDE 0.9% 1,000 ML IV SCH (05:45)
[2021-08-27 06:23] LABS: Basophils % (A) 0 %; Eosinophils % (A) 0 %; HCT 27.4 % (39.0-53.0); HGB 8.7 gm/dL (13.0-17.5); Lymphocytes # (A) 0.2 k/uL (1.0-4.8); Lymphocytes % (A) 2 %; MCH 37.1 pg (25.0-35.0); MCHC 31.9 g/dL (31.0-37.0); MCV 116.3 fL (80.0-100.0); Macrocytosis Marked; Mean Platelet Volume 11.1; Monocytes # (A) 0.3 k/uL (0-1.0); Monocytes % (A) 4 %; Neutrophils # (A) 7.6 k/uL (1.3-7.7); Neutrophils % (A) 93 %; RBC 2.36 m/uL (4.30-5.90); RDW 14.9 % (11.5-15.5); WBC 8.2 k/uL (3.8-10.6)
[2021-08-27 06:29] LABS: Platelet Count 32 k/uL (150-450)
[2021-08-27 06:46] LABS: African American GFR (CKD) 63 (>60 ml/min/1.73 sqM); Anion Gap 5 mmol/L; Blood Urea Nitrogen 47 mg/dL (9-20); Calcium 8.8 mg/dL (8.4-10.2); Carbon Dioxide 33 mmol/L (22-30); Chloride 89 mmol/L (98-107); Glucose 153 mg/dL (74-99); Non-African American GFR(CKD) 54 (>60 ml/min/1.73 sqM); Potassium 5.4 mmol/L (3.5-5.1); Sodium 127 mmol/L (137-145)
[2021-08-27] MEDS: FORMOTEROL FUMARATE 20 MCG/2 ML NEBU INHALATION SCH ×2 (07:20→19:46)
[2021-08-27] MEDS: IPRATROPIUM-ALBUTEROL 3 ML NEB INHALATION SCH ×4 (07:20→19:46)
[2021-08-27] MEDS: BUDESONIDE 1 MG/2 ML NEBU INHALATION SCH ×2 (07:20→19:46)
[2021-08-27] MEDS: POTASSIUM CHLORIDE ER 20 MEQ TAB.ER PO SCH (07:25)
[2021-08-27] MEDS: SENNOSIDES-DOCUSATE SODIUM 1 EACH TAB PO SCH ×2 (08:39→21:45)
[2021-08-27] MEDS: FOLIC ACID 1 MG TAB PO SCH (08:39)
[2021-08-27] MEDS: METOPROLOL SUCCINATE (ER) 25 MG TAB.ER.24H PO SCH (08:40)
[2021-08-27] MEDS: guaiFENesin 600 MG TABLET.ER PO SCH ×2 (08:40→21:44)
[2021-08-27] MEDS: PANTOPRAZOLE 40 MG TABLET PO SCH ×2 (08:40→21:45)
[2021-08-27] MEDS: MULTIVITAMINS, THERA 1 EACH TAB PO SCH (08:40)
[2021-08-27] MEDS: LORazepam 2 MG/ML INJ IV PRN ×2 (12:56→21:44)
--- NOTE | 2021-08-27 15:12 | XR ---
EXAMINATION TYPE: XR chest 1V portable DATE OF EXAM: 08/27/2021 CLINICAL HISTORY: Difficulty breathing progress study. History of lung cancer. TECHNIQUE: Single AP portable upright view of the chest is obtained. COMPARISON: Chest x-ray from 3 days earlier and older studies FINDINGS: Heart size stable and within normal limits with atherosclerotic thoracic aorta. Persistent small to moderate size left greater than right pleural effusions on background chronic emphysematous change with bibasilar and right suprahilar opacities. Osseous structures are demineralized. IMPRESSION: Moderate emphysematous change with small to moderate size left greater than right pleural effusions. Bibasilar acute infiltrate and/or atelectasis and right midlung acute infiltrate all rede monstrated. No significant change from most recent x-ray.
[2021-08-27] MEDS: FLUCONAZOLE ORAL SUSP 1,400 MG/35 ML BOTTLE PO SCH (15:56)
[2021-08-27] MEDS: FUROSEMIDE 10 MG/ML 4 ML VIAL IV SCH (15:59)
--- NOTE | 2021-08-27 16:05 | P.PN ---
Subjective Progress Note Date: 08/27/21 Principal diagnosis: Lung Cancer and Positive Sputum Cultures, COPD Exacerbation PLatelets have improved after stopping Bactrim Objective - Vital Signs Vital signs: Vital Signs Temp 98.1 F 08/27/21 14:00 Pulse 90 08/27/21 15:46 Resp 20 08/27/21 14:00 BP 129/68 08/27/21 14:00 Pulse Ox 95 08/27/21 14:00 Intake & Output 08/26/21 08/27/21 08/27/21 18:59 06:59 18:59 Intake Total 265 480 Output Total 175 Balance 265 305 Intake: Oral 480 Blood Product 265 Platelet Pheresis Pas 265 Psoralen Unit [id number] Output: Urine 175 Other: Voiding Method Urinal Urinal # Voids 3 2 # Bowel Movements 1 - Exam Alert Mild distress Pale Lungs diminished Heart Tachy Abdomen soft Extremities Mild Anxious - Labs CBC & Chem 7: 08/27/21 05:51 08/27/21 05:51 Labs: Abnormal Lab Results - Last 24 Hours (Table) 08/27/21 08/27/21 Range/Units 05:51 05:51 RBC 2.36 L (4.30-5.90) m/uL Hgb 8.7 L D (13.0-17.5) gm/dL Hct 27.4 L (39.0-53.0) % MCV 116.3 H (80.0-100.0) fL MCH 37.1 H (25.0-35.0) pg Plt Count 32 L D (150-450) k/uL Lymphocytes # 0.2 L (1.0-4.8) k/uL Macrocytosis Marked A Sodium 127 L (137-145) mmol/L Potassium 5.4 H (3.5-5.1) mmol/L Chloride 89 L (98-107) mmol/L Carbon Dioxide 33 H (22-30) mmol/L BUN 47 H (9-20) mg/dL Creatinine 1.28 H (0.66-1.25) mg/dL Glucose 153 H (74-99) mg/dL Microbiology - Last 24 Hours (Table) 08/21/21 10:02 Blood Culture - Final Blood No Growth after 144 hours 08/21/21 10:17 Blood Culture - Final Blood No Growth after 144 hours 08/24/21 14:30 Fungal Culture - Preliminary Bronchoalviolar Lavage - Left Tonja albicans Assessment and Plan (1) Thrombocytopenia Narrative/Plan: Likely secondary to medication, will discuss with pulm for additional option in place of bactrim. Also contributing factors to monitor for DIC/Infection. Additional factors chemotherapy] Discontinued Bactrim Current Visit: Yes Status: Acute Code(s): D69.6 - THROMBOCYTOPENIA, UNSPECIFIED SNOMED Code(s): 697288155 (2) COPD with exacerbation Narrative/Plan: Per Pulmonary Current Visit: Yes Status: Acute Code(s): J44.1 - CHRONIC OBSTRUCTIVE PULMONARY DISEASE W (ACUTE) EXACERBATION SNOMED Code(s): 978210103 (3) Lung cancer Narrative/Plan: Continue on treatment plan after stabilized, discharged and cleared by Pulmonology Current Visit: Yes Status: Chronic Priority: Medium Code(s): C34.90 - MALIGNANT NEOPLASM OF UNSP PART OF UNSP BRONCHUS OR LUNG SNOMED Code(s): 264726912 Plan: Continue to monitor daily CBC Acute picture managed by Pulm and Primary team Remains on High FLow oxygen His platelets are improving - -------COntinue off bactrim as long as ok with pulm
--- NOTE | 2021-08-27 16:07 | P.PN ---
Subjective Progress Note Date: 08/27/21 Principal diagnosis: Dyspnea, acute on chronic hypoxia On today's evaluation on 08/27/2021 patient seen in follow-up on medical surgical floor, his FiO2 is currently up to 10 L, she feels a more short of breath, and his leg edema has worsened. Patient has been receiving IV fluids in the form of 0.9 normal saline at a rate of 50 ML per hour, today's chest x-ray showing moderate emphysematous changes with small to moderate-sized left greater than right pleural effusions, and bibasilar Infiltrates and atelectasis in the right midlung. Patient has not been receiving any diuretics in the last few days. He remains on antibiotics in the form of cefepime, he is status post b ronchoscopy with bronchoalveolar lavage on 08/24/2021, so far his BAL cultures are positive for Tonja albicans. Today's labs have been reviewed, his white blood cell count is down to 8.2, hemoglobin is 8.7, his sodium is 127, potassium is 5.4, CO2 33, BUN is 47 creatinine is 1.28. Objective - Vital Signs Vital signs: Vital Signs Temp 98.1 F 08/27/21 14:00 Pulse 90 08/27/21 15:46 Resp 20 08/27/21 14:00 BP 129/68 08/27/21 14:00 Pulse Ox 95 08/27/21 14:00 Intake & Output 08/26/21 08/27/21 08/27/21 18:59 06:59 18:59 Intake Total 265 480 Output Total 175 Balance 265 305 Intake: Oral 480 Blood Product 265 Platelet Pheresis Pas 265 Psoralen Unit [id number] Output: Urine 175 Other: Voiding Method Urinal Urinal # Voids 3 2 # Bowel Movements 1 - Exam GENERAL EXAM: Alert, very pleasant, 76-year-old white male, on 10 L of oxygen, sitting up in the recliner, mildly short of breath with conversation, but appears to be no acute distress, with a pulse ox of 95% comfortable in no apparent distress. HEAD: Normocephalic/atraumatic. EYES: Normal reaction of pupils, equal size. Conjunctiva pink, sclera white. NOSE: Clear with pink turbinates. THROAT: No erythema or exudates. NECK: No masses, no JVD, no thyroid enlargement, no adenopathy. CHEST: No chest wall deformity. Symmetrical expansion. LUNGS: Equal air entry with bibasilar crackles CVS: Regular rate and rhythm, normal S1 and S2, no gallops, no murmurs, no rubs ABDOMEN: Soft, nontender. No hepatosplenomegaly, normal bowel sounds, no guarding or rigidity. EXTREMITIES: No clubbing, 1+ edema, no cyanosis, 2+ pulses and upper and lower extremities. MUSCULOSKELETAL: Muscle strength and tone normal. SPINE: No scoliosis or deformity SKIN: No rashes CENTRAL NERVOUS SYSTEM: Alert and oriented -3. No focal deficits, tone is normal in all 4 extremities. PSYCHIATRIC: Alert and oriented -3. Appropriate affect. Intact judgment and insight. - Labs CBC & Chem 7: 08/27/21 05:51 08/27/21 05:51 Labs: Abnormal Lab Results - Last 24 Hours (Table) 08/27/21 08/27/21 Range/Units 05:51 05:51 RBC 2.36 L (4.30-5.90) m/uL Hgb 8.7 L D (13.0-17.5) gm/dL Hct 27.4 L (39.0-53.0) % MCV 116.3 H (80.0-100.0) fL MCH 37.1 H (25.0-35.0) pg Plt Count 32 L D (150-450) k/uL Lymphocytes # 0.2 L (1.0-4.8) k/uL Macrocytosis Marked A Sodium 127 L (137-145) mmol/L Potassium 5.4 H (3.5-5.1) mmol/L Chloride 89 L (98-107) mmol/L Carbon Dioxide 33 H (22-30) mmol/L BUN 47 H (9-20) mg/dL Creatinine 1.28 H (0.66-1.25) mg/dL Glucose 153 H (74-99) mg/dL Microbiology - Last 24 Hours (Table) 08/21/21 10:02 Blood Culture - Final Blood No Growth after 144 hours 08/21/21 10:17 Blood Culture - Final Blood No Growth after 144 hours 08/24/21 14:30 Fungal Culture - Preliminary Bronchoalviolar Lavage - Left Tonja albicans Assessment and Plan Plan: Assessment: 1 Acute COPD exacerbation, and the patient is presenting for another episode of worsening shortness of breath, chest congestion and increased difficulty in breathing and hypoxemia and currently is on 10 L of oxygen by nasal cannula. The prior sputum culture was positive for stenotrophomonas maltophilia. The patient will be treated again with combination of of cefepime and Bactrim. The patient showed limited clinical improvement over the past 24-48 hours. Based on that, the patient underwent a bronchoscopy with therapeutic it was suctioning and removal of purulent respiratory secretions and cultures will be recent. Meanwhile, his oxygen requirements went up to 10 L per minute cannula. Bronchoscopy results are still pending. Sputum samples indicating Pseudomonas and consider Pseudomonas tracheal bronchitis/pneumonia contributing to his COPD exacerbation worsening shortness of breath. The patient currently is on IV cefepime. He has also extensive oropharyngeal candidiasis and he was started on Diflucan. 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 with Alimta and the patient is off immunotherapy 6 Compression fracture of T6 , acute 7 Compression fracture of L1, chronic 8 Severe COPD, stage III 9 History of prostate cancer 10 REM sleep behavior disorder 11 Mild obstructive sleep apnea, not on CPAP at home 12 History of tobacco dependence, quit 04/2020 13 Claustrophobic 14 History of shingles 15 bilateral pleural effusions, currently off diuretics 16 oropharyngeal candidiasis, currently on Diflucan 17 hyponatremia, stable 18 thrombocytopenia, stable Plan: We'll stop the IV fluids Start the patient on Lasix 40 mg daily Continue with current antibiotics, we will add Diflucan This chest x-ray has been reviewed still showing bilateral pleural effusions FiO2 is currently up to 10 L patient was more short of breath We'll restart diuretics, Monitor daily labs Electrolytes and renal profile Follow-up chest x-ray tomorrow I performed a history & physical examination of the patient and discussed their management with my nurse practitioner, Kandi Saleem. I reviewed the nurse practitioner's note and agree with the documented findings and plan of care. Lung sounds are positive for diffuse wheezes throughout the lung coronel. The findings and the impression was discussed with the patient. I attest to the documentation by the nurse practitioner. Time with Patient: Less than 30
[2021-08-27] MEDS: clonazePAM 0.5 MG TAB PO SCH (21:45)
[2021-08-28] MEDS: CEFEPIME 2 GM in SODIUM CHLORIDE 0.9% 100 ML IVPB SCH ×3 (00:09→21:54)
[2021-08-28] MEDS: methylPREDNISolone SOD SUCCI 125 MG/2 ML VIAL IV SCH ×4 (04:11→21:55)
[2021-08-28] MEDS: IPRATROPIUM-ALBUTEROL 3 ML NEB INHALATION PRN (04:29)
[2021-08-28] MEDS: guaiFENesin 600 MG TABLET.ER PO SCH ×2 (08:17→21:55)
[2021-08-28] MEDS: SENNOSIDES-DOCUSATE SODIUM 1 EACH TAB PO SCH ×2 (08:17→21:55)
[2021-08-28] MEDS: METOPROLOL SUCCINATE (ER) 25 MG TAB.ER.24H PO SCH (08:17)
[2021-08-28] MEDS: FOLIC ACID 1 MG TAB PO SCH (08:17)
[2021-08-28] MEDS: PANTOPRAZOLE 40 MG TABLET PO SCH ×2 (08:17→21:56)
[2021-08-28] MEDS: MULTIVITAMINS, THERA 1 EACH TAB PO SCH (08:17)
[2021-08-28] MEDS: FLUCONAZOLE ORAL SUSP 1,400 MG/35 ML BOTTLE PO SCH (08:18)
[2021-08-28] MEDS: FORMOTEROL FUMARATE 20 MCG/2 ML NEBU INHALATION SCH ×2 (08:35→19:39)
[2021-08-28] MEDS: BUDESONIDE 1 MG/2 ML NEBU INHALATION SCH ×2 (08:35→19:39)
[2021-08-28] MEDS: IPRATROPIUM-ALBUTEROL 3 ML NEB INHALATION SCH ×4 (08:35→19:39)
--- NOTE | 2021-08-28 08:46 | XR ---
EXAMINATION TYPE: XR chest 1V DATE OF EXAM: 08/28/2021 CLINICAL HISTORY: Difficulty breathing and CHF progress study. TECHNIQUE: Single AP portable upright view of the chest is obtained. COMPARISON: Chest x-ray from one day earlier and older studies. FINDINGS: Heart size stable and mildly enlarged with atherosclerotic thoracic aorta. Persistent smal l to moderate size left greater than right pleural effusions on background chronic emphysematous blanco ge with bibasilar and right suprahilar opacities. Osseous structures remain demineralized. IMPRESSION: Moderate emphysematous change with small to moderate size left greater than right pleural effusions and associated bibasilar compressive atelectasis and/or infiltrates. Right mid lung acute infiltrate redemonstrated. No significant change from most recent x-ray.
[2021-08-28] MEDS: FUROSEMIDE 10 MG/ML 4 ML VIAL IV SCH ×2 (09:17→16:46)
[2021-08-28] MEDS: LORazepam 2 MG/ML INJ IV PRN ×2 (10:12→17:35)
--- NOTE | 2021-08-28 12:00 | CDI ---
Documentation Clarification Form Date: 08/28/2021 11:31:06 AM From: Lesley Dia RN, CCDS Admit Date: 08/21/2021 12:48:00 PM Patient Name: Juma Lewis Visit Number: [id number] ATTENTION: The Clinical Documentation Specialists (CDI) and [facility] Coding Staff appreciate your assistance in clarifying documentation. Please respond to the clarification below the line at the bottom and electronically sign. The CDI & [facility] Coding staff will review the response and follow-up if needed. Please note: Queries are made part of the Legal Health Record. If you have any questions, please contact the author of this message via ITS. Dr. Kaveh Garcia Your patient has a right pleural effusion, +1 Lower Extremity edema, SOB, and an EF>55%. Additional information regarding the clinical significance is requested. History/Risk Factors: COPD, malignant pericardial effusion, metastatic adenocarcinoma of possible Lung or GI Primary, T6 and L1 compression Fx, Anemia with transfusions, chemo, radiation, shingles Clinical Indicators: 08/21/21 VS/Pulse OX: Temp 100.6, HR 98, RR 26, SPO2 92% 2L NC 08/21 BNP: 880 04/16/2021 Echocardiogram Results: EF >55% 08/21 Chest X Ray: "Bilateral pleural effusions with scattered areas of patchy infiltrate. No evidence for overt failure." +1 edema to bilateral lower extremities Right Pleural effusion Treatment: 08/21 -08/24 Lasix 40 mg IVP Q 12 hrs. 08/27-08/28 Lasix 40mg IVP QD 08/28 Lasix 40 mg IVP Q 8hrs In your professional opinion, can you please clarify the clinical significance of the above results and treatment if known? [ ] Acute Diastolic Heart Failure (preserved EF) [ ] Chronic Diastolic Heart Failure (preserved EF) [ ] Acute on Chronic Diastolic Heart Failure (preserved EF) [ ] Acute Systolic & Diastolic Heart Failure [ ] Chronic Systolic & Diastolic Heart Failure [ ] Acute on Chronic Heart Failure Systolic & Diastolic Heart Failure [ X] Other, please specify_Adenocarcinoma of the lung, COPD [ ] Unable to determine (Template Last Revised: December 2020) MTDD
[2021-08-28 12:20] LABS: Chloride 84 mmol/L (98-107); Sodium 124 mmol/L (137-145)
[2021-08-28 12:22] LABS: African American GFR (CKD) 85 (>60 ml/min/1.73 sqM); Anion Gap 6 mmol/L; Blood Urea Nitrogen 43 mg/dL (9-20); Calcium 8.7 mg/dL (8.4-10.2); Carbon Dioxide 34 mmol/L (22-30); Glucose 133 mg/dL (74-99); Non-African American GFR(CKD) 73 (>60 ml/min/1.73 sqM); Potassium 4.7 mmol/L (3.5-5.1)
[2021-08-28] MEDS: POTASSIUM CHLORIDE ER 20 MEQ TAB.ER PO SCH (13:10)
--- NOTE | 2021-08-28 13:54 | P.PN ---
Subjective Progress Note Date: 08/28/21 Principal diagnosis: Acute on chronic hypoxic respiratory failure This is a 75-year-old male patient who is coming in today to the emergency for another episodes of worsening shortness of breath. He is well-known to me. He is known to have chronic dyspnea and advanced COPD with an FEV1 of 34% of predicted. He is also a case of metastatic adenocarcinoma consistent of a lung primary that was originally diagnosed on 05/10/2020. At that time the patient presented to us with a large pericardial effusion and required drainage and the fluid was consistent with adenocarcinoma. Since then, the patient underwent further investigation including a PET scan that showed uptake within a lymph node in the right supraclavicular area and the hilar area. He was started on systemic chemotherapy using carboplatinum and Alimta. He also received immunotherapy during the course of his treatment. At one point, the patient was receiving immunotherapy and due to concern of his worsening shortness of breath, the immunotherapy has been discontinued and currently is on a Alimta mainte nance. The patient received his last dose of Alimta approximately 5 days ago. He is coming in today with worsening shortness of breath, cough and congestion and hypoxemia. At home is maintained on oxygen at 2 L per minute nasal cannula. Noted during his last hospitalization, the patient is COPD exacerbation his sputum was positive for stenotrophomonas. We ended up putting this patient on Bactrim and sent home on a prednisone burst taper. As the patient completed the course of antibiotics and steroids, his breathing got worse. The chest x-ray from today showing bilateral pleural effusion, worse on the left and there is some vague limited infiltration of the lung bases mainly consistent with some increased pulmonary vascular congestion. His previous echocardiogram was essentially within normal and the patient has a preserved LV function. His most recent computed tomography scan of the chest was done on 07/28/2021 and the patient was found to have advanced COPD with emphysematous changes bilaterally. There was also evidence of bilateral pleural effusion worse on the left and some atelectatic changes in lung bases bilaterally. There was no evidence of any pulmonary embolism. There was progression a T6 compression fracture and an old L1 compression fracture. No hilar masses. No filling defects. No pericardial effusion was seen. For now, the patient is having difficulty in breathing. He is currently on oxygen at 2 L his current pulse ox is 97%. He continues to have a very congested cough. His blood work shows a hemoglobin of 10.6 with a white cell count of 5.7. Platelet count is at 87. Normal coagulation profile. Creatinine is at 1.3. Sodium is at 132. ProBNP level is at 880. The pro calcitonin LEVEL HAS NOT BEEN CHECKED. CPK IS LESS THAN 20. THE REST OF THE ELECTROLYTES INCLUDING CALCIUM AND POTASSIUM ARE WITHIN NORMAL LIMITS. LIVER FUNCTION TESTS ARE ALSO WITHIN NORMAL LIMITS. The patient is seen today 08/22/2021 and follow-up in the emergency department. He is awake and alert in no acute distress. Breathing a bit easier today compared to yesterday. Continues with a loose productive cough. Culture pending. He is maintaining O2 saturations in the mid 90s on 4 L/m per nasal cannula. He is heme hemodynamically stable. He's afebrile. He's been initiated on DuoNeb inhalations, Pulmicort and Perforomist inhalations, IV Solu-Medrol, Mucinex. IV diuretics. In about eczema form of cefepime and Bactrim. 08/23/2021, the patient remains bronchospastic and wheezy and short of breath and he continues to have a congested cough. Not producing a lot of sputum. Nevertheless, his cough is quite congested. He was able to give me a sputum sample milligrams is positive for many gram-negative bacilli, final culture are still pending.The patient remains on a combination of cefepime and Bactrim. He is on Pulmicort and Perforomist nebulized treatments twice a day and he is also on IV Solu-Medrol. He remains on Lasix. There are bilateral pleural effusion. The pleural fluid marking was done via ultrasound. On 08/24/2021, the patient is essentially the same. Limited improvement since yesterday. The patient has become slightly hypovolemic and sodium level is down to 126. As such, the diuretics were discontinued. Her symptoms the patient continues to have copious respiratory secretions. The plan is to proceed with a bronchoscopy and a aspiration of the bronchial secretions for further cultures and analysis. The patient was unable to bring up much of sputum over the past 24 hours. The he remains on a combination of cefepime and Bactrim. He is also on examination Perforomist and Pulmicort nebulized treatments twice a day and DuoNeb nebulized.. Pleural effusions. No other complaints otherwise for now. On examination he has developed some oropharyngeal candidiasis. During the bronchoscopy from this morning the patient was found to have copious amount of brownish thick purulent respiratory secretions. These were suctioned out. Also noted involving the pharynx and upper airways. Diflucan will be added. Meanwhile, the patient will be given a combination of cefepime and Bactrim. The patient is seen today on 08/25/2021 in follow-up on the regular medical floor. He is currently sitting up in bed. Awake and alert in no acute distress. He is continuing to have productive sputum of brown-colored phlegm. Loose productive cough. Continue O2 saturations in the low 90s on 8 L high flow nasal cannula. He's been afebrile. Hemodynamically stable. He did undergo bronchoscopy with BAL yesterday. Cultures are pending. Initial sputum cultures positive for pseudomonas aeruginosa. Sodium 127. Potassium 4.0. Bicarb 35. Creatinine 1.10. Glucose 128. He remains on DuoNeb inhalations, Pulmicort and Perforomist inhalations, IV Solu-Medrol. Antibiotics in the form of cefepime and Bactrim. CBC pending. The patient is seen today 08/28/2021 in follow-up on the regular medical floor. He is currently sitting up in a chair at the bedside. Awake and alert in no acute distress. Still with a loose, congested cough. Requiring 10 L high flow nasal cannula to maintain O2 saturations in the 90s. Chest x-ray reveals moderate emphysematous changes with small to moderate-sized left greater than right pleural effusions and associated bibasilar compressive atelectasis. Right midlung acute infiltrate remains. No significant change. He is status post 1 unit of platelets this admission. Current platelets 32,000. Hemoglobin 8.7. Sodium 124. Potassium 4.7. Creatinine 1.00. Glucose 133. He remains on DuoNeb inhalations, Pulmicort and Perforomist inhalations, IV Solu-Medrol IV diuretics, antibiotics in the form of cefepime. Cytology from bronchoscopy performed 08/24/2021 are pending. Cultures reveal Tonja. Previous sputum culture positive for pseudomonas aeruginosa. Objective - Vital Signs Vital signs: Vital Signs Temp 97.9 F 08/28/21 07:31 Pulse 96 08/28/21 12:18 Resp 20 08/28/21 08:00 BP 138/66 08/28/21 07:31 Pulse Ox 93 L 08/28/21 07:31 Intake & Output 08/27/21 08/28/21 08/28/21 18:59 06:59 18:59 Output Total 300 800 Balance -300 -800 Output: Urine 300 800 Other: Voiding Method Urinal Urinal Urinal # Voids 300 4 # Bowel Movements 1 - Exam GENERAL EXAM: Alert, very pleasant 75-year-old gentleman, on 10 L nasal cannula, fairly comfortable in no apparent distress. HEAD: Normocephalic. EYES: Normal reaction of pupils, equal size. NOSE: Clear with pink turbinates. THROAT: No erythema or exudates. NECK: No masses, no JVD. CHEST: No chest wall deformity. LUNGS: Equal air entry with bilateral scattered rhonchi, end expiratory wheeze, diminished. CVS: S1 and S2 normal with no audible murmur, regular rhythm. ABDOMEN: No hepatosplenomegaly, normal bowel sounds, no guarding or rigidity. SPINE: No scoliosis or deformity SKIN: No rashes CENTRAL NERVOUS SYSTEM: No focal deficits, tone is normal in all 4 extremities. EXTREMITIES: There is no peripheral edema. No clubbing, no cyanosis. Little pheral pulses are intact. - Labs CBC & Chem 7: 08/27/21 05:51 08/28/21 11:46 Labs: Abnormal Lab Results - Last 24 Hours (Table) 08/28/21 Range/Units 11:46 Sodium 124 L (137-145) mmol/L Chloride 84 L (98-107) mmol/L Carbon Dioxide 34 H (22-30) mmol/L BUN 43 H (9-20) mg/dL Glucose 133 H (74-99) mg/dL Microbiology - Last 24 Hours (Table) 08/21/21 10:02 Blood Culture - Final Blood No Growth after 144 hours 08/21/21 10:17 Blood Culture - Final Blood No Growth after 144 hours 08/24/21 14:30 Fungal Culture - Preliminary Bronchoalviolar Lavage - Left Tonja albicans Assessment and Plan Assessment: 1 Acute COPD exacerbation, and the patient is presenting for another episode of worsening shortness of breath, chest congestion and increased difficulty in breathing and hypoxemia and currently is on 10 L of oxygen by nasal cannula. Sputum culture again positive for pseudomonas aeruginosa. He did undergo bronchoscopy with BAL on 08/24/2021. Cultures are revealing Tonja only thus far. Cytology pending. 2 Acute on chronic hypoxic respiratory failure secondary to the above, wears 2.5 L nasal cannula at home 3 Mild pulmonary hypertension, normal LV function 4 History of metastatic adenocarcinoma of the lungs, last chemotherapy treatment with Alimta 08/15/2021 5 History of malignant pericardial effusion status post systemic chemotherapy with Alimta and the patient is off immunotherapy 6 Compression fracture of T6 , acute 7 Compression fracture of L1, chronic 8 Severe COPD, stage III 9 History of prostate cancer 10 REM sleep behavior disorder 11 Mild obstructive sleep apnea, not on CPAP at home 12 History of tobacco dependence, quit 04/2020 13 Claustrophobic 14 History of shingles 13 Thrombocytopenia, status post 1 unit of platelets, most recent platelet and 32,000. Bactrim discontinued. Plan: The patient was seen and evaluated by Dr. Dumont Chest x-ray and labs reviewed Add sodium chloride tablets Continue cefepime Bronchoscopy with BAL and 08/24/2021, cytology pending Continue bronchodilators,IV Solu-Medrol, IV diuretics, Mucinex Titrate the FiO2 as tolerated We will continue to follow and make further recommendations based on his clinical status I, the cosigning physician, performed a history & physical examination of the patient. Lungs sounds bilateral end expiratory wheeze, scattered rhonchi, diminished. Maintaining good O2 saturations in the 90s on 10 L/m per nasal cannula. I discussed the assessment and plan of care with my nurse practitioner, Linh Way. I attest to the above note as dictated by her.
[2021-08-28] MEDS ORDERED: FUROSEMIDE 10 MG/ML 4 ML VIAL IV SCH (18:00)
[2021-08-28] MEDS: SODIUM CHLORIDE TAB 1 GM TAB PO SCH (21:55)
[2021-08-28] MEDS: Acetaminophen-Codeine 300-30mg TAB PO PRN (21:55)
[2021-08-28] MEDS: clonazePAM 0.5 MG TAB PO SCH (21:56)
[2021-08-28] MEDS: LIDOCAINE 5% PATCH TOPICAL PRN (21:57)
[2021-08-29] MEDS: FUROSEMIDE 10 MG/ML 4 ML VIAL IV SCH ×4 (00:37→23:31)
[2021-08-29] MEDS: LORazepam 2 MG/ML INJ IV PRN ×2 (00:37→21:31)
[2021-08-29] MEDS: methylPREDNISolone SOD SUCCI 125 MG/2 ML VIAL IV SCH ×4 (03:22→21:34)
[2021-08-29] MEDS: CEFEPIME 2 GM in SODIUM CHLORIDE 0.9% 100 ML IVPB SCH ×3 (05:50→21:36)
[2021-08-29 06:19] LABS: Basophils % (A) 0 %; Eosinophils % (A) 0 %; HGB 8.5 gm/dL (13.0-17.5); Lymphocytes # (A) 0.2 k/uL (1.0-4.8); Lymphocytes % (A) 4 %; MCH 36.8 pg (25.0-35.0); MCHC 32.9 g/dL (31.0-37.0); Macrocytosis Marked; Mean Platelet Volume 9.7; Monocytes # (A) 0.2 k/uL (0-1.0); Monocytes % (A) 3 %; Neutrophils # (A) 5.7 k/uL (1.3-7.7); Neutrophils % (A) 92 %; RBC 2.33 m/uL (4.30-5.90); RDW 15.7 % (11.5-15.5); WBC 6.3 k/uL (3.8-10.6)
[2021-08-29 06:20] LABS: MCV 111.7 fL (80.0-100.0)
[2021-08-29 06:21] LABS: Platelet Count 56 k/uL (150-450)
[2021-08-29 06:33] LABS: African American GFR (CKD) 89 (>60 ml/min/1.73 sqM); Anion Gap 4 mmol/L; Blood Urea Nitrogen 41 mg/dL (9-20); Calcium 8.3 mg/dL (8.4-10.2); Carbon Dioxide 38 mmol/L (22-30); Chloride 86 mmol/L (98-107); Glucose 145 mg/dL (74-99); Non-African American GFR(CKD) 77 (>60 ml/min/1.73 sqM); Potassium 3.8 mmol/L (3.5-5.1); Sodium 128 mmol/L (137-145)
[2021-08-29] MEDS: IPRATROPIUM-ALBUTEROL 3 ML NEB INHALATION SCH ×4 (07:38→21:29)
[2021-08-29] MEDS: FORMOTEROL FUMARATE 20 MCG/2 ML NEBU INHALATION SCH ×2 (07:38→21:29)
[2021-08-29] MEDS: BUDESONIDE 1 MG/2 ML NEBU INHALATION SCH ×2 (07:38→21:29)
[2021-08-29] MEDS: FLUCONAZOLE ORAL SUSP 1,400 MG/35 ML BOTTLE PO SCH (08:26)
[2021-08-29] MEDS: guaiFENesin 600 MG TABLET.ER PO SCH ×2 (08:26→21:30)
[2021-08-29] MEDS: PANTOPRAZOLE 40 MG TABLET PO SCH ×2 (08:27→21:30)
[2021-08-29] MEDS: SENNOSIDES-DOCUSATE SODIUM 1 EACH TAB PO SCH ×2 (08:27→21:31)
[2021-08-29] MEDS: MULTIVITAMINS, THERA 1 EACH TAB PO SCH (08:27)
[2021-08-29] MEDS: METOPROLOL SUCCINATE (ER) 25 MG TAB.ER.24H PO SCH (08:27)
[2021-08-29] MEDS: SODIUM CHLORIDE TAB 1 GM TAB PO SCH ×2 (08:27→21:53)
[2021-08-29] MEDS: POTASSIUM CHLORIDE ER 20 MEQ TAB.ER PO SCH (08:27)
[2021-08-29] MEDS: FOLIC ACID 1 MG TAB PO SCH (08:28)
--- NOTE | 2021-08-29 13:57 | P.PN ---
Subjective Progress Note Date: 08/29/21 Principal diagnosis: Acute on chronic hypoxic respiratory failure secondary to COPD exacerbation, pulmonary edema, and possible underlying bronchogenic carcinoma. With bilateral pleural effusions. The patient is seen today 08/28/2021 in follow-up on the regular medical floor. He is currently sitting up in a chair at the bedside. Awake and alert in no acute distress. Still with a loose, congested cough. Requiring 10 L high flow nasal cannula to maintain O2 saturations in the 90s. Chest x-ray reveals moderate emphysematous changes with small to moderate-sized left greater than right pleural effusions and associated bibasilar compressive atelectasis. Right midlung acute infiltrate remains. No significant change. He is status post 1 unit of platelets this admission. Current platelets 32,000. Hemoglobin 8.7. Sodium 124. Potassium 4.7. Creatinine 1.00. Glucose 133. He remains on DuoNeb inhalations, Pulmicort and Perforomist inhalations, IV Solu-Medrol IV diuretics, antibiotics in the form of cefepime. Cytology from bronchoscopy performed 08/24/2021 are pending. Cultures reveal Tonja. Previous sputum culture positive for pseudomonas aeruginosa. Reevaluated today on 08/29/2021, patient remains on the regular medical floor, continues to have intermittent cough and wheezing. Remains on 10 L high flow Oxygen, O2 Saturations 96%. Patient Is Receiving Antibiotics, Bronchodilators, Diuretics, His Sputum Was Positive for Pseudomonas Aeruginosa from Previous Bronchoscopy Done by Dr. Nicole on 08/24/2021. Cytology Is Still Pending, Patient Had Previous History of Bronchogenic Carcinoma. And Malignant Pericardial Pleural Effusion. Patient Is Feeling about the Same, His Sodium Is Coming up to 128. His Hemoglobin Is 8.5 WBC 6.3. Platelets Remained Low but Improving at 56,000. Objective - Vital Signs Vital signs: Vital Signs Temp 98.5 F 08/29/21 13:23 Pulse 97 08/29/21 13:23 Resp 18 08/29/21 13:23 BP 131/74 08/29/21 13:23 Pulse Ox 96 08/29/21 13:23 Intake & Output 08/28/21 08/29/21 08/29/21 18:59 06:59 18:59 Output Total 600 Balance -600 Weight 70.307 kg 69 kg Output: Urine 600 Other: Voiding Method Urinal Urinal - Exam GENERAL EXAM: Revealed a 76-year-old white male on 10 L high flow cannula, in no distress. HEAD: Normocephalic. EENT: PERRLA, EOMI, anicteric, no neck masses, no JVD. CHEST: No chest wall deformity. LUNGS: Scattered rhonchi noted bilaterally and expiratory wheezes persist. CVS: S1 and S2 normal with no audible murmur, regular rhythm. ABDOMEN: No hepatosplenomegaly, normal bowel sounds, no guarding or rigidity. SKIN: No rashes CENTRAL NERVOUS SYSTEM: Alert and oriented 3 in no gross focal deficit. EXTREMITIES: There is no peripheral edema. No clubbing, no cyanosis. Peripheral pulses are intact. - Labs CBC & Chem 7: 08/29/21 05:23 08/29/21 05:23 Labs: Abnormal Lab Results - Last 24 Hours (Table) 08/29/21 08/29/21 Range/Units 05:23 05:23 RBC 2.33 L (4.30-5.90) m/uL Hgb 8.5 L (13.0-17.5) gm/dL Hct 26.0 L (39.0-53.0) % MCV 111.7 H (80.0-100.0) fL MCH 36.8 H (25.0-35.0) pg RDW 15.7 H (11.5-15.5) % Plt Count 56 L D (150-450) k/uL Lymphocytes # 0.2 L (1.0-4.8) k/uL Macrocytosis Marked A Sodium 128 L (137-145) mmol/L Chloride 86 L (98-107) mmol/L Carbon Dioxide 38 H (22-30) mmol/L BUN 41 H (9-20) mg/dL Glucose 145 H (74-99) mg/dL Calcium 8.3 L (8.4-10.2) mg/dL Assessment and Plan Assessment: 1 Acute COPD exacerbation, suspect underlying pseudomonas aeruginosa pneumonia and suspect diastolic congestive heart failure with bilateral pleural effusions. Possible underlying bronchogenic carcinoma. 2 Acute on chronic hypoxic respiratory failure secondary to the above, wears 2.5 L nasal cannula at home 3 Mild pulmonary hypertension, normal LV function 4 History of metastatic adenocarcinoma of the lungs, last chemotherapy treatment with Alimta 08/15/2021 5 History of malignant pericardial effusion status post systemic chemotherapy with Alimta and the patient is off immunotherapy 6 Compression fracture of T6 , acute 7 Compression fracture of L1, chronic 8 Severe COPD, stage III 9 History of prostate cancer 10 REM sleep behavior disorder 11 Mild obstructive sleep apnea, not on CPAP at home 12 History of tobacco dependence, quit 04/2020 13 Claustrophobic 14 History of shingles 13 Thrombocytopenia, improving based on the platelets today. Recommendation: Continue present medications including antibiotics, bronchodilators, steroids, diuretics, cefepime, awaiting cytology from the bronchial lavage. Continue to titrate FiO2 down as tolerated and maintain O2 saturation above 90%. Continue Solu-Medrol. Not quite ready for discharge planning, will repeat chest x-ray in a.m., May have to consider thoracentesis if effusion does not improve much. And that will be based on ultrasound of the chest. Time with Patient: Less than 30
--- NOTE | 2021-08-29 14:27 | P.PN ---
Subjective Progress Note Date: 08/29/21 Principal diagnosis: acute exacerbation of chronic COPD with hypoxic respiratory failure, known history of bronchogenic carcinoma, bilateral pleural effusions persistent intermittent cough wheeze. Remains on 10 L high flow oxygen, sats 96%. Currently receiving IV antibiotics bronchodilators diuretics. Was positive for pseudomonas aeruginosa specifically from Eduardo performed on 08/24/[address] Nicole. Objective - Vital Signs Vital signs: Vital Signs Temp 98.5 F 08/29/21 13:23 Pulse 97 08/29/21 13:23 Resp 18 08/29/21 13:23 BP 131/74 08/29/21 13:23 Pulse Ox 96 08/29/21 13:23 Intake & Output 08/28/21 08/29/21 08/29/21 18:59 06:59 18:59 Output Total 600 Balance -600 Weight 70.307 kg 69 kg Output: Urine 600 Other: Voiding Method Urinal Urinal - Exam General: [Patient awake, alert and oriented times 3. Patient in no acute distress.] HEENT: [PERRL. EOMI. No pharyngeal erythema or exudate.] Neck: [No adenopathy.] Cardiac: [Heart regular in rate and rhythm. No S3. No S4. No clicks, rubs. No murmur.] Lungs: [Clear to auscultation bilaterally.] Abdomen: [No mass. No organomegaly. Bowel sounds presnt and normoactive in all 4 quadrants.] Extremes: [No edema no cyanosis no claudication normal pulses] : normal male genitalia Musculoskeletal: [No joint erythema, edema or tenderness.] Skin: [No rash.] Neurologic: [No lateralizing deficits. CN II - XII grossly intact.] Lymphatic: [No adenopathy.] - Labs CBC & Chem 7: 08/29/21 05:23 08/29/21 05:23 Labs: Abnormal Lab Results - Last 24 Hours (Table) 08/29/21 08/29/21 Range/Units 05:23 05:23 RBC 2.33 L (4.30-5.90) m/uL Hgb 8.5 L (13.0-17.5) gm/dL Hct 26.0 L (39.0-53.0) % MCV 111.7 H (80.0-100.0) fL MCH 36.8 H (25.0-35.0) pg RDW 15.7 H (11.5-15.5) % Plt Count 56 L D (150-450) k/uL Lymphocytes # 0.2 L (1.0-4.8) k/uL Macrocytosis Marked A Sodium 128 L (137-145) mmol/L Chloride 86 L (98-107) mmol/L Carbon Dioxide 38 H (22-30) mmol/L BUN 41 H (9-20) mg/dL Glucose 145 H (74-99) mg/dL Calcium 8.3 L (8.4-10.2) mg/dL Assessment and Plan (1) Bilateral pleural effusion Current Visit: Yes Status: Acute Code(s): J90 - PLEURAL EFFUSION, NOT ELSEWHERE CLASSIFIED SNOMED Code(s): 980219276 (2) COPD with exacerbation Current Visit: Yes Status: Acute Code(s): J44.1 - CHRONIC OBSTRUCTIVE PULMONARY DISEASE W (ACUTE) EXACERBATION SNOMED Code(s): 800476293 (3) Hyponatremia Current Visit: Yes Status: Acute Code(s): E87.1 - HYPO-OSMOLALITY AND HYPONATREMIA SNOMED Code(s): 04234843 (4) Lung cancer Current Visit: Yes Status: Chronic Priority: Medium Code(s): C34.90 - MALIGNANT NEOPLASM OF UNSP PART OF UNSP BRONCHUS OR LUNG SNOMED Code(s): 280372095 (5) Acute respiratory failure with hypoxia Current Visit: No Status: Acute Code(s): J96.01 - ACUTE RESPIRATORY FAILURE WITH HYPOXIA SNOMED Code(s): 57716117 (6) Dehydration Current Visit: No Status: Acute Code(s): E86.0 - DEHYDRATION SNOMED Code(s): 88862971 (7) Edema, peripheral Current Visit: No Status: Acute Code(s): R60.9 - EDEMA, UNSPECIFIED SNOMED Code(s): 949497907 Time with Patient: Greater than 30
[2021-08-29] MEDS: clonazePAM 0.5 MG TAB PO SCH (21:23)
[2021-08-30] MEDS: methylPREDNISolone SOD SUCCI 125 MG/2 ML VIAL IV SCH ×4 (04:00→22:02)
[2021-08-30] MEDS: CEFEPIME 2 GM in SODIUM CHLORIDE 0.9% 100 ML IVPB SCH ×3 (04:01→22:04)
[2021-08-30] MEDS: BUDESONIDE 1 MG/2 ML NEBU INHALATION SCH ×2 (07:12→20:17)
[2021-08-30] MEDS: FORMOTEROL FUMARATE 20 MCG/2 ML NEBU INHALATION SCH ×2 (07:12→20:17)
[2021-08-30] MEDS: IPRATROPIUM-ALBUTEROL 3 ML NEB INHALATION SCH ×4 (07:12→20:17)
--- NOTE | 2021-08-30 07:20 | XR ---
EXAMINATION TYPE: XR chest 1V portable DATE OF EXAM: 08/30/2021 Comparison: 08/28/2021 Clinical History: 76-year-old male CHF, pneumonia Findings: Heart limits of normal in size. Airspace opacity right upper lobe shows slight improvement. Continued moderate left and small right pleural effusions with bibasilar opacities. Suspect background COPD. Impression: Continued moderate left and small right pleural effusions with adjacent atelectasis and/or consolidat ion. Airspace disease in the right upper lobe shows some improvement.
--- NOTE | 2021-08-30 07:38 | US ---
EXAMINATION TYPE: US chest DATE OF EXAM: 08/30/2021 COMPARISON: Radiograph same day CLINICAL HISTORY: 76-year-old male Markings for thoracentesis by pulmonary staff. TECHNIQUE: Targeted ultrasound of the posterior lower bilateral hemithoraces. Exam done portable. Findings: EXAM MEASUREMENTS: Right Pleural Effusion pocket size: 7.9 cm Right skin surface to fluid distance: 2.7 cm Left Pleural Effusion pocket size: 9.7 cm Left skin surface to fluid distance: 2.2 cm Right side marked for possible thoracentesis outside the dept. Left side marked for possible thoracentesis outside the dept. Pulmonologists are able to review the images in the patient?s EMR. IMPRESSIONS: Moderate left greater than right pleural effusions with markings performed.
[2021-08-30] MEDS: FOLIC ACID 1 MG TAB PO SCH (07:43)
[2021-08-30] MEDS: METOPROLOL SUCCINATE (ER) 25 MG TAB.ER.24H PO SCH (07:43)
[2021-08-30] MEDS: SODIUM CHLORIDE TAB 1 GM TAB PO SCH ×2 (07:44→22:03)
[2021-08-30] MEDS: POTASSIUM CHLORIDE ER 20 MEQ TAB.ER PO SCH (07:45)
[2021-08-30] MEDS: PANTOPRAZOLE 40 MG TABLET PO SCH ×2 (07:45→22:03)
[2021-08-30] MEDS: guaiFENesin 600 MG TABLET.ER PO SCH ×2 (07:45→22:15)
[2021-08-30] MEDS: MULTIVITAMINS, THERA 1 EACH TAB PO SCH (07:45)
[2021-08-30] MEDS: FLUCONAZOLE ORAL SUSP 1,400 MG/35 ML BOTTLE PO SCH (07:46)
[2021-08-30] MEDS: FUROSEMIDE 10 MG/ML 4 ML VIAL IV SCH ×3 (08:22→23:10)
[2021-08-30] MEDS: SENNOSIDES-DOCUSATE SODIUM 1 EACH TAB PO SCH ×2 (08:31→22:04)
[2021-08-30 13:05] VITALS: BMI 20.6
--- NOTE | 2021-08-30 13:17 | P.PN ---
Subjective Progress Note Date: 08/30/21 Principal diagnosis: acute exacerbation of chronic COPD with hypoxic respiratory failure, known history of bronchogenic carcinoma, bilateral pleural effusions persistent intermittent cough wheeze. Remains on 10 L high flow oxygen, sats 96%. Currently receiving IV antibiotics bronchodilators diuretics. Was positive for pseudomonas aeruginosa specifically from Eduardo performed on 08/24/[address] Nicole. Objective - Vital Signs Vital signs: Vital Signs Temp 98.0 F 08/30/21 08:00 Pulse 85 08/30/21 11:00 Resp 20 08/30/21 08:05 BP 137/68 08/30/21 08:00 Pulse Ox 93 L 08/30/21 08:00 Intake & Output 08/29/21 08/30/21 08/30/21 18:59 06:59 18:59 Intake Total 100 Output Total 200 Balance -100 Weight 69 kg 69 kg Intake: Oral 100 Output: Urine 200 Other: Voiding Method Urinal Urinal - Exam General: [Patient awake, alert and oriented times 3. Patient in no acute distress.] HEENT: [PERRL. EOMI. No pharyngeal erythema or exudate.] Neck: [No adenopathy.] Cardiac: [Heart regular in rate and rhythm. No S3. No S4. No clicks, rubs. No murmur.] Lungs: [Clear to auscultation bilaterally.] Abdomen: [No mass. No organomegaly. Bowel sounds presnt and normoactive in all 4 quadrants.] Extremes: [No edema no cyanosis no claudication normal pulses] : normal male genitalia Musculoskeletal: [No joint erythema, edema or tenderness.] Skin: [No rash.] Neurologic: [No lateralizing deficits. CN II - XII grossly intact.] Lymphatic: [No adenopathy.] - Labs CBC & Chem 7: 08/29/21 05:23 08/29/21 05:23 Assessment and Plan (1) Bilateral pleural effusion Current Visit: Yes Status: Acute Code(s): J90 - PLEURAL EFFUSION, NOT ELSEWHERE CLASSIFIED SNOMED Code(s): 218245404 (2) COPD with exacerbation Current Visit: Yes Status: Acute Code(s): J44.1 - CHRONIC OBSTRUCTIVE PULMONARY DISEASE W (ACUTE) EXACERBATION SNOMED Code(s): 935188075 (3) Hyponatremia Current Visit: Yes Status: Acute Code(s): E87.1 - HYPO-OSMOLALITY AND HYPONATREMIA SNOMED Code(s): 32180267 (4) Lung cancer Current Visit: Yes Status: Chronic Priority: Medium Code(s): C34.90 - MALIGNANT NEOPLASM OF UNSP PART OF UNSP BRONCHUS OR LUNG SNOMED Code(s): 683798996 (5) Acute respiratory failure with hypoxia Current Visit: No Status: Acute Code(s): J96.01 - ACUTE RESPIRATORY FAILURE WITH HYPOXIA SNOMED Code(s): 80930988 (6) Dehydration Current Visit: No Status: Acute Code(s): E86.0 - DEHYDRATION SNOMED Code(s): 79634407 (7) Edema, peripheral Current Visit: No Status: Acute Code(s): R60.9 - EDEMA, UNSPECIFIED SNOMED Code(s): 382226969 Plan: Continue meds as scheduled Prognosis guarded Waiting for patient to require less oxygen than Possible thoracentesis per pulmonary Time with Patient: Greater than 30
--- NOTE | 2021-08-30 13:45 | P.PN ---
Subjective Progress Note Date: 08/30/21 Principal diagnosis: Acute on chronic hypoxic respiratory failure This is a 75-year-old male patient who is coming in today to the emergency for another episodes of worsening shortness of breath. He is well-known to me. He is known to have chronic dyspnea and advanced COPD with an FEV1 of 34% of predicted. He is also a case of metastatic adenocarcinoma consistent of a lung primary that was originally diagnosed on 05/10/2020. At that time the patient presented to us with a large pericardial effusion and required drainage and the fluid was consistent with adenocarcinoma. Since then, the patient underwent further investigation including a PET scan that showed uptake within a lymph node in the right supraclavicular area and the hilar area. He was started on systemic chemotherapy using carboplatinum and Alimta. He also received immunotherapy during the course of his treatment. At one point, the patient was receiving immunotherapy and due to concern of his worsening shortness of breath, the immunotherapy has been discontinued and currently is on a Alimta mainte nance. The patient received his last dose of Alimta approximately 5 days ago. He is coming in today with worsening shortness of breath, cough and congestion and hypoxemia. At home is maintained on oxygen at 2 L per minute nasal cannula. Noted during his last hospitalization, the patient is COPD exacerbation his sputum was positive for stenotrophomonas. We ended up putting this patient on Bactrim and sent home on a prednisone burst taper. As the patient completed the course of antibiotics and steroids, his breathing got worse. The chest x-ray from today showing bilateral pleural effusion, worse on the left and there is some vague limited infiltration of the lung bases mainly consistent with some increased pulmonary vascular congestion. His previous echocardiogram was essentially within normal and the patient has a preserved LV function. His most recent computed tomography scan of the chest was done on 07/28/2021 and the patient was found to have advanced COPD with emphysematous changes bilaterally. There was also evidence of bilateral pleural effusion worse on the left and some atelectatic changes in lung bases bilaterally. There was no evidence of any pulmonary embolism. There was progression a T6 compression fracture and an old L1 compression fracture. No hilar masses. No filling defects. No pericardial effusion was seen. For now, the patient is having difficulty in breathing. He is currently on oxygen at 2 L his current pulse ox is 97%. He continues to have a very congested cough. His blood work shows a hemoglobin of 10.6 with a white cell count of 5.7. Platelet count is at 87. Normal coagulation profile. Creatinine is at 1.3. Sodium is at 132. ProBNP level is at 880. The pro calcitonin LEVEL HAS NOT BEEN CHECKED. CPK IS LESS THAN 20. THE REST OF THE ELECTROLYTES INCLUDING CALCIUM AND POTASSIUM ARE WITHIN NORMAL LIMITS. LIVER FUNCTION TESTS ARE ALSO WITHIN NORMAL LIMITS. The patient is seen today 08/22/2021 and follow-up in the emergency department. He is awake and alert in no acute distress. Breathing a bit easier today compared to yesterday. Continues with a loose productive cough. Culture pending. He is maintaining O2 saturations in the mid 90s on 4 L/m per nasal cannula. He is heme hemodynamically stable. He's afebrile. He's been initiated on DuoNeb inhalations, Pulmicort and Perforomist inhalations, IV Solu-Medrol, Mucinex. IV diuretics. In about eczema form of cefepime and Bactrim. 08/23/2021, the patient remains bronchospastic and wheezy and short of breath and he continues to have a congested cough. Not producing a lot of sputum. Nevertheless, his cough is quite congested. He was able to give me a sputum sample milligrams is positive for many gram-negative bacilli, final culture are still pending.The patient remains on a combination of cefepime and Bactrim. He is on Pulmicort and Perforomist nebulized treatments twice a day and he is also on IV Solu-Medrol. He remains on Lasix. There are bilateral pleural effusion. The pleural fluid marking was done via ultrasound. On 08/24/2021, the patient is essentially the same. Limited improvement since yesterday. The patient has become slightly hypovolemic and sodium level is down to 126. As such, the diuretics were discontinued. Her symptoms the patient continues to have copious respiratory secretions. The plan is to proceed with a bronchoscopy and a aspiration of the bronchial secretions for further cultures and analysis. The patient was unable to bring up much of sputum over the past 24 hours. The he remains on a combination of cefepime and Bactrim. He is also on examination Perforomist and Pulmicort nebulized treatments twice a day and DuoNeb nebulized.. Pleural effusions. No other complaints otherwise for now. On examination he has developed some oropharyngeal candidiasis. During the bronchoscopy from this morning the patient was found to have copious amount of brownish thick purulent respiratory secretions. These were suctioned out. Also noted involving the pharynx and upper airways. Diflucan will be added. Meanwhile, the patient will be given a combination of cefepime and Bactrim. The patient is seen today on 08/25/2021 in follow-up on the regular medical floor. He is currently sitting up in bed. Awake and alert in no acute distress. He is continuing to have productive sputum of brown-colored phlegm. Loose productive cough. Continue O2 saturations in the low 90s on 8 L high flow nasal cannula. He's been afebrile. Hemodynamically stable. He did undergo bronchoscopy with BAL yesterday. Cultures are pending. Initial sputum cultures positive for pseudomonas aeruginosa. Sodium 127. Potassium 4.0. Bicarb 35. Creatinine 1.10. Glucose 128. He remains on DuoNeb inhalations, Pulmicort and Perforomist inhalations, IV Solu-Medrol. Antibiotics in the form of cefepime and Bactrim. CBC pending. The patient is seen today 08/28/2021 in follow-up on the regular medical floor. He is currently sitting up in a chair at the bedside. Awake and alert in no acute distress. Still with a loose, congested cough. Requiring 10 L high flow nasal cannula to maintain O2 saturations in the 90s. Chest x-ray reveals moderate emphysematous changes with small to moderate-sized left greater than right pleural effusions and associated bibasilar compressive atelectasis. Right midlung acute infiltrate remains. No significant change. He is status post 1 unit of platelets this admission. Current platelets 32,000. Hemoglobin 8.7. Sodium 124. Potassium 4.7. Creatinine 1.00. Glucose 133. He remains on DuoNeb inhalations, Pulmicort and Perforomist inhalations, IV Solu-Medrol IV diuretics, antibiotics in the form of cefepime. Cytology from bronchoscopy performed 08/24/2021 are pending. Cultures reveal Tonja. Previous sputum culture positive for pseudomonas aeruginosa. Reevaluated today on 08/29/2021, patient remains on the regular medical floor, continues to have intermittent cough and wheezing. Remains on 10 L high flow Oxygen, O2 Saturations 96%. Patient Is Receiving Antibiotics, Bronchodilators, Diuretics, His Sputum Was Positive for Pseudomonas Aeruginosa from Previous Bronchoscopy Done by Dr. Nicole on 08/24/2021. Cytology Is Still Pending, Patient Had Previous History of Bronchogenic Carcinoma. And Malignant Pericardial Pleural Effusion. Patient Is Feeling about the Same, His Sodium Is Coming up to 128. His Hemoglobin Is 8.5 WBC 6.3. Platelets Remained Low but Improving at 56,000. The patient is seen today 08/30/2021 in follow-up on the regular medical floor. He is currently sitting up in a chair at the bedside. Awake and alert in no acu te distress. He is still requiring 10 L high flow nasal cannula to maintain O2 saturations in the low 90s. He is afebrile. Hemodynamically stable. Bronchoscopy wash cultures revealed Tonja only. Cytology is still pending. Ultrasound of the chest did reveal a 9.7 cm pocket of fluid on the left and a 7.8 cm pocket on the right. He did undergo thoracentesis today on the left by Dr. Dumont. 900 mL of clear yellow fluid was removed. Fluid analysis and cytology pending. He remains on IV diuretics, IV Solu-Medrol, DuoNeb inhalations, Pulmicort and Perforomist inhalations, Mucinex. Antibiotics in the form of cefepime. Objective - Vital Signs Vital signs: Vital Signs Temp 98.0 F 08/30/21 08:00 Pulse 85 08/30/21 11:00 Resp 20 08/30/21 08:05 BP 137/68 08/30/21 08:00 Pulse Ox 93 L 08/30/21 08:00 Intake & Output 08/29/21 08/30/21 08/30/21 18:59 06:59 18:59 Intake Total 100 Output Total 200 Balance -100 Weight 69 kg 69 kg Intake: Oral 100 Output: Urine 200 Other: Voiding Method Urinal Urinal - Exam GENERAL EXAM: Alert, very pleasant 75-year-old gentleman, on 10 L high flow nasal cannula, fairly comfortable in no apparent distress. HEAD: Normocephalic. EYES: Normal reaction of pupils, equal size. NOSE: Clear with pink turbinates. THROAT: No erythema or exudates. NECK: No masses, no JVD. CHEST: No chest wall deformity. LUNGS: Equal air entry with bilateral scattered rhonchi, end expiratory wheeze, diminished. CVS: S1 and S2 normal with no audible murmur, regular rhythm. ABDOMEN: No hepatosplenomegaly, normal bowel sounds, no guarding or rigidity. SPINE: No scoliosis or deformity SKIN: No rashes CENTRAL NERVOUS SYSTEM: No focal deficits, tone is normal in all 4 extremities. EXTREMITIES: There is no peripheral edema. No clubbing, no cyanosis. Peripheral pulses are intact. - Labs CBC & Chem 7: 08/29/21 05:23 08/29/21 05:23 Assessment and Plan Assessment: 1 Acute COPD exacerbation, and the patient is presenting for another episode of worsening shortness of breath, chest congestion and increased difficulty in breathing and hypoxemia and currently is on 10 L of oxygen by nasal cannula. Sputum culture again positive for pseudomonas aeruginosa. He did undergo bronchoscopy with BAL on 08/24/2021. Cultures are revealing Tonja only thus far. Cytology pending. 2 Acute on chronic hypoxic respiratory failure secondary to the above, wears 2.5 L nasal cannula at home 3 Bilateral pleural effusions left greater than right. Status post thoracentesis with 900 mL clear yellow fluid removed on 08/30/2021. Fluid analysis and cytology pending. 4 History of metastatic adenocarcinoma of the lungs, last chemotherapy treatment with Alimta 08/15/2021 5 History of malignant pericardial effusion status post systemic chemotherapy with Alimta and the patient is off immunotherapy 6 Compression fracture of T6 , acute 7 Compression fracture of L1, chronic 8 Severe COPD, stage III 9 History of prostate cancer 10 REM sleep behavior disorder 11 Mild obstructive sleep apnea, not on CPAP at home 12 History of tobacco dependence, quit 04/2020 13 Claustrophobic 14 History of shingles 13 Thrombocytopenia, status post 1 unit of platelets, most recent platelet and 32,000. Bactrim discontinued. Plan: The patient was seen and evaluated by Dr. Dumont Left-sided thoracentesis performed today with 900 mL fluid removed Cytology and fluid analysis pending Bronchoscopy cytology still pending Continue cefepime Continue bronchodilators,IV Solu-Medrol, IV diuretics, Mucinex Titrate down the FiO2 as tolerated We will continue to follow and make further recommendations based on his clinical status I, the cosigning physician, performed a history & physical examination of the patient. Lungs sounds bilateral end expiratory wheeze, scattered rhonchi, diminished. Maintaining good O2 saturations in the 90s on 10 L/m per high flow nasal cannula. I discussed the assessment and plan of care with my nurse practitioner, Linh Way. I attest to the above note as dictated by her.
--- NOTE | 2021-08-30 13:55 | XR ---
EXAMINATION TYPE: XR chest 1V portable DATE OF EXAM: 08/30/2021 Comparison: 08/30/2021 Clinical History: 76-year-old male post thoracentesis Findings: Heart normal size. Atherosclerotic arch calcifications. Residual patchy airspace opacity right upper lobe continues to show improvement. [id number] bilateral pleural effusions remain, decreased o n the left now. Adjacent bibasilar opacities. Background emphysema. No appreciable pneumothorax. Impression: 1. Residual [id number] bilateral pleural effusions with adjacent atelectasis and/or consolidat ion, decreased size of the effusion on the left. 2. Continued improving airspace disease in the right upper lobe.
--- NOTE | 2021-08-30 14:15 | PCN ---
PROCEDURE NOTE PROCEDURE PERFORMED: Left-sided thoracentesis. PREOPERATIVE DIAGNOSIS: Left pleural effusion. POSTOPERATIVE DIAGNOSIS: Left pleural effusion. ANESTHESIA USED: 2 mL of 1% lidocaine. PROCEDURE DETAILS: Patient was placed in a sitting upright position, the area below the left scapula was prepared in a sterile fashion and drapes were applied. The area of the fluid was earlier localized by ultrasound, and ultrasound marking was basically at the level of the 9th intercostal space and tip of the scapula. The area was locally anesthetized with lidocaine. Then, a 26-gauge needle inserted at the same site, advanced into the pleural space and fluid was localized. Then a small tiny incision was made, and a standard thoracentesis catheter and needle used, advanced into the same site into the pleural space and as soon as the fluid was obtained, the catheter was advanced over the needle, and the needle was pulled out of the pleural space. Freely flowing fluid was removed, roughly 900 mL of isha colored fluid, non bloody, removed from the left pleural space. The fluid was sent for different diagnostic studies. Chest x-ray postoperatively showed no evidence of any complications. Procedure was well tolerated. MMODL / IJN: [id number] /
[2021-08-30 15:57] LABS: Appearance,BF Clear; Nucleated Cells, Body Fluid 60 /uL; RBC, Body Fluid 80 /uL
[2021-08-30 17:55] LABS: Mononuclear WBC,Body Fluid 98 %; Polynuclear WBC,Body Fluid 1 %; Total Cells Counted,Body Fluid 100
[2021-08-30] MEDS: clonazePAM 0.5 MG TAB PO SCH (22:04)
[2021-08-30] MEDS: LORazepam 2 MG/ML INJ IV PRN (22:14)
[2021-08-30] MEDS: LIDOCAINE 5% PATCH TOPICAL PRN (23:10)
[2021-08-31] MEDS: methylPREDNISolone SOD SUCCI 125 MG/2 ML VIAL IV SCH ×4 (04:00→21:28)
[2021-08-31] MEDS: CEFEPIME 2 GM in SODIUM CHLORIDE 0.9% 100 ML IVPB SCH ×3 (04:00→21:28)
[2021-08-31] MEDS: POTASSIUM CHLORIDE ER 20 MEQ TAB.ER PO SCH (07:38)
[2021-08-31] MEDS: FOLIC ACID 1 MG TAB PO SCH (07:38)
[2021-08-31] MEDS: guaiFENesin 600 MG TABLET.ER PO SCH ×2 (07:38→21:29)
[2021-08-31] MEDS: METOPROLOL SUCCINATE (ER) 25 MG TAB.ER.24H PO SCH (07:40)
[2021-08-31] MEDS: PANTOPRAZOLE 40 MG TABLET PO SCH ×2 (07:40→21:30)
[2021-08-31] MEDS: MULTIVITAMINS, THERA 1 EACH TAB PO SCH (07:40)
[2021-08-31] MEDS: FUROSEMIDE 10 MG/ML 4 ML VIAL IV SCH ×2 (07:41→14:55)
[2021-08-31] MEDS: SENNOSIDES-DOCUSATE SODIUM 1 EACH TAB PO SCH ×2 (07:42→21:42)
[2021-08-31] MEDS: FLUCONAZOLE ORAL SUSP 1,400 MG/35 ML BOTTLE PO SCH (07:47)
[2021-08-31] MEDS: SODIUM CHLORIDE TAB 1 GM TAB PO SCH ×2 (07:47→21:30)
[2021-08-31] MEDS: BUDESONIDE 1 MG/2 ML NEBU INHALATION SCH ×2 (07:47→21:33)
[2021-08-31] MEDS: FORMOTEROL FUMARATE 20 MCG/2 ML NEBU INHALATION SCH ×2 (07:48→21:33)
[2021-08-31] MEDS: IPRATROPIUM-ALBUTEROL 3 ML NEB INHALATION SCH ×4 (07:48→21:33)
--- NOTE | 2021-08-31 10:56 | XR ---
EXAMINATION TYPE: XR chest 1V portable DATE OF EXAM: 08/31/2021 COMPARISON: 08/30/2021 HISTORY: Postthoracentesis TECHNIQUE: Single frontal view of the chest is obtained. FINDINGS: Bilateral consolidation and pleural effusion. Underlying COPD. Heart size normal with athe rosclerotic change aorta. Arthropathy of the shoulders. Somewhat coarsened density in the right upper lobe stable. IMPRESSION: 1. No sizable pneumothorax postthoracentesis. 2. Bilateral infiltrate and pleural effusion with findings compatible COPD. Right perihilar vague den sity noted may been the basis of atelectasis or scarring. Question nodule right upper lobe measuring [address] scan has been reviewed and there is suspicion for a mass in the right upper lobe me asuring 1.2 cm
[2021-08-31 11:11] LABS: African American GFR (CKD) 79 (>60 ml/min/1.73 sqM); Anion Gap 7 mmol/L; Blood Urea Nitrogen 45 mg/dL (9-20); Calcium 8.3 mg/dL (8.4-10.2); Carbon Dioxide 38 mmol/L (22-30); Chloride 83 mmol/L (98-107); Glucose 237 mg/dL (74-99); Non-African American GFR(CKD) 68 (>60 ml/min/1.73 sqM); Potassium 3.4 mmol/L (3.5-5.1); Sodium 128 mmol/L (137-145)
[2021-08-31 11:17] LABS: Basophils % (A) 0 %; Eosinophils % (A) 0 %; HCT 29.1 % (39.0-53.0); HGB 9.5 gm/dL (13.0-17.5); Lymphocytes # (A) 0.2 k/uL (1.0-4.8); Lymphocytes % (A) 2 %; MCH 36.6 pg (25.0-35.0); MCHC 32.6 g/dL (31.0-37.0); MCV 112.4 fL (80.0-100.0); Macrocytosis Marked; Mean Platelet Volume 9.8; Monocytes # (A) 0.4 k/uL (0-1.0); Monocytes % (A) 4 %; Neutrophils % (A) 94 %; RBC 2.59 m/uL (4.30-5.90); RDW 15.6 % (11.5-15.5); WBC 11.8 k/uL (3.8-10.6)
[2021-08-31 11:22] LABS: Platelet Count 110 k/uL (150-450)
--- NOTE | 2021-08-31 12:30 | OP ---
OPERATIVE REPORT PROCEDURE: Right-sided thoracentesis. PREOPERATIVE DIAGNOSIS: Right pleural effusion. POSTOPERATIVE DIAGNOSIS: Right pleural effusion. ANESTHESIA: 2 mL of 1% lidocaine. PROCEDURE: The patient was placed in a sitting upright position, leaning forward on a bedside table. The area below the right scapula was prepared in a sterile fashion and drapes were applied. The fluid was earlier localized by ultrasound guidance and a marking was placed at the level of the 9th intercostal space and tip of the scapula. The area was locally anesthetized with lidocaine. Then, a 26-gauge needle was inserted at the same site, advanced into the pleural space until the fluid was localized with the needle. Then a small tiny incision was made, and a standard thoracentesis catheter and needle were used, advanced at the same site into the pleural space. As soon as the fluid was obtained, the catheter was advanced out of the needle, and the needle was pulled out of the pleural space. Freely flowing fluid was noted, the fluid was slightly isha in color, 800 mL of fluid drained from the right pleural space. Procedure was well tolerated. No evidence of complications. Chest x-ray showed no complications and the fluid was again sent for different diagnostic studies. MMODL / IJN: [id number] /
[2021-08-31 13:03] LABS: Glucose, BF Source Pleural Fluid; Glucose, Body Fluid 198 mg/dL; LDH, Body Fluid Source Pleural Fluid; Total Protein, Body Fluid 2730 mg/dL
--- NOTE | 2021-08-31 13:32 | P.PN ---
Subjective Progress Note Date: 08/31/21 Principal diagnosis: Acute on chronic hypoxic respiratory failure This is a 75-year-old male patient who is coming in today to the emergency for another episodes of worsening shortness of breath. He is well-known to me. He is known to have chronic dyspnea and advanced COPD with an FEV1 of 34% of predicted. He is also a case of metastatic adenocarcinoma consistent of a lung primary that was originally diagnosed on 05/10/2020. At that time the patient presented to us with a large pericardial effusion and required drainage and the fluid was consistent with adenocarcinoma. Since then, the patient underwent further investigation including a PET scan that showed uptake within a lymph node in the right supraclavicular area and the hilar area. He was started on systemic chemotherapy using carboplatinum and Alimta. He also received immunotherapy during the course of his treatment. At one point, the patient was receiving immunotherapy and due to concern of his worsening shortness of breath, the immunotherapy has been discontinued and currently is on a Alimta mainte nance. The patient received his last dose of Alimta approximately 5 days ago. He is coming in today with worsening shortness of breath, cough and congestion and hypoxemia. At home is maintained on oxygen at 2 L per minute nasal cannula. Noted during his last hospitalization, the patient is COPD exacerbation his sputum was positive for stenotrophomonas. We ended up putting this patient on Bactrim and sent home on a prednisone burst taper. As the patient completed the course of antibiotics and steroids, his breathing got worse. The chest x-ray from today showing bilateral pleural effusion, worse on the left and there is some vague limited infiltration of the lung bases mainly consistent with some increased pulmonary vascular congestion. His previous echocardiogram was essentially within normal and the patient has a preserved LV function. His most recent computed tomography scan of the chest was done on 07/28/2021 and the patient was found to have advanced COPD with emphysematous changes bilaterally. There was also evidence of bilateral pleural effusion worse on the left and some atelectatic changes in lung bases bilaterally. There was no evidence of any pulmonary embolism. There was progression a T6 compression fracture and an old L1 compression fracture. No hilar masses. No filling defects. No pericardial effusion was seen. For now, the patient is having difficulty in breathing. He is currently on oxygen at 2 L his current pulse ox is 97%. He continues to have a very congested cough. His blood work shows a hemoglobin of 10.6 with a white cell count of 5.7. Platelet count is at 87. Normal coagulation profile. Creatinine is at 1.3. Sodium is at 132. ProBNP level is at 880. The pro calcitonin LEVEL HAS NOT BEEN CHECKED. CPK IS LESS THAN 20. THE REST OF THE ELECTROLYTES INCLUDING CALCIUM AND POTASSIUM ARE WITHIN NORMAL LIMITS. LIVER FUNCTION TESTS ARE ALSO WITHIN NORMAL LIMITS. The patient is seen today 08/22/2021 and follow-up in the emergency department. He is awake and alert in no acute distress. Breathing a bit easier today compared to yesterday. Continues with a loose productive cough. Culture pending. He is maintaining O2 saturations in the mid 90s on 4 L/m per nasal cannula. He is heme hemodynamically stable. He's afebrile. He's been initiated on DuoNeb inhalations, Pulmicort and Perforomist inhalations, IV Solu-Medrol, Mucinex. IV diuretics. In about eczema form of cefepime and Bactrim. 08/23/2021, the patient remains bronchospastic and wheezy and short of breath and he continues to have a congested cough. Not producing a lot of sputum. Nevertheless, his cough is quite congested. He was able to give me a sputum sample milligrams is positive for many gram-negative bacilli, final culture are still pending.The patient remains on a combination of cefepime and Bactrim. He is on Pulmicort and Perforomist nebulized treatments twice a day and he is also on IV Solu-Medrol. He remains on Lasix. There are bilateral pleural effusion. The pleural fluid marking was done via ultrasound. On 08/24/2021, the patient is essentially the same. Limited improvement since yesterday. The patient has become slightly hypovolemic and sodium level is down to 126. As such, the diuretics were discontinued. Her symptoms the patient continues to have copious respiratory secretions. The plan is to proceed with a bronchoscopy and a aspiration of the bronchial secretions for further cultures and analysis. The patient was unable to bring up much of sputum over the past 24 hours. The he remains on a combination of cefepime and Bactrim. He is also on examination Perforomist and Pulmicort nebulized treatments twice a day and DuoNeb nebulized.. Pleural effusions. No other complaints otherwise for now. On examination he has developed some oropharyngeal candidiasis. During the bronchoscopy from this morning the patient was found to have copious amount of brownish thick purulent respiratory secretions. These were suctioned out. Also noted involving the pharynx and upper airways. Diflucan will be added. Meanwhile, the patient will be given a combination of cefepime and Bactrim. The patient is seen today on 08/25/2021 in follow-up on the regular medical floor. He is currently sitting up in bed. Awake and alert in no acute distress. He is continuing to have productive sputum of brown-colored phlegm. Loose productive cough. Continue O2 saturations in the low 90s on 8 L high flow nasal cannula. He's been afebrile. Hemodynamically stable. He did undergo bronchoscopy with BAL yesterday. Cultures are pending. Initial sputum cultures positive for pseudomonas aeruginosa. Sodium 127. Potassium 4.0. Bicarb 35. Creatinine 1.10. Glucose 128. He remains on DuoNeb inhalations, Pulmicort and Perforomist inhalations, IV Solu-Medrol. Antibiotics in the form of cefepime and Bactrim. CBC pending. The patient is seen today 08/28/2021 in follow-up on the regular medical floor. He is currently sitting up in a chair at the bedside. Awake and alert in no acute distress. Still with a loose, congested cough. Requiring 10 L high flow nasal cannula to maintain O2 saturations in the 90s. Chest x-ray reveals moderate emphysematous changes with small to moderate-sized left greater than right pleural effusions and associated bibasilar compressive atelectasis. Right midlung acute infiltrate remains. No significant change. He is status post 1 unit of platelets this admission. Current platelets 32,000. Hemoglobin 8.7. Sodium 124. Potassium 4.7. Creatinine 1.00. Glucose 133. He remains on DuoNeb inhalations, Pulmicort and Perforomist inhalations, IV Solu-Medrol IV diuretics, antibiotics in the form of cefepime. Cytology from bronchoscopy performed 08/24/2021 are pending. Cultures reveal Tonja. Previous sputum culture positive for pseudomonas aeruginosa. Reevaluated today on 08/29/2021, patient remains on the regular medical floor, continues to have intermittent cough and wheezing. Remains on 10 L high flow Oxygen, O2 Saturations 96%. Patient Is Receiving Antibiotics, Bronchodilators, Diuretics, His Sputum Was Positive for Pseudomonas Aeruginosa from Previous Bronchoscopy Done by Dr. Nicole on 08/24/2021. Cytology Is Still Pending, Patient Had Previous History of Bronchogenic Carcinoma. And Malignant Pericardial Pleural Effusion. Patient Is Feeling about the Same, His Sodium Is Coming up to 128. His Hemoglobin Is 8.5 WBC 6.3. Platelets Remained Low but Improving at 56,000. The patient is seen today 08/30/2021 in follow-up on the regular medical floor. He is currently sitting up in a chair at the bedside. Awake and alert in no acu te distress. He is still requiring 10 L high flow nasal cannula to maintain O2 saturations in the low 90s. He is afebrile. Hemodynamically stable. Bronchoscopy wash cultures revealed Tonja only. Cytology is still pending. Ultrasound of the chest did reveal a 9.7 cm pocket of fluid on the left and a 7.8 cm pocket on the right. He did undergo thoracentesis today on the left by Dr. Dumont. 900 mL of clear yellow fluid was removed. Fluid analysis and cytology pending. He remains on IV diuretics, IV Solu-Medrol, DuoNeb inhalations, Pulmicort and Perforomist inhalations, Mucinex. Antibiotics in the form of cefepime. The patient is seen today 08/31/2021 in follow-up on the regular medical floor. He is currently sitting up in bed. Awake and alert in no acute distress. He is maintaining good O2 saturations in the 90s on 8 L high flow nasal cannula. He did undergo a left-sided thoracentesis yesterday with 900 ML's of clear yellow fluid removed. A collagen cultures pending. Protein 2.7. LDH 188. He remains on IV diuretics, IV Solu-Medrol, DuoNeb inhalations, Pulmicort and Perforomist inhalations, Mucinex. Antibiotics in the form of cefepime. Chest x-ray continues to reveal some right-sided pleural effusion and a right-sided thoracentesis was performed today with 800 ML's of fluid removed. Cytology, cultures, fluid analysis pending. Objective - Vital Signs Vital signs: Vital Signs Temp 98.6 F 08/31/21 07:46 Pulse 92 08/31/21 11:35 Resp 20 08/31/21 07:46 BP 127/69 08/31/21 07:46 Pulse Ox 94 L 08/31/21 07:46 Intake & Output 08/30/21 08/31/21 08/31/21 18:59 06:59 18:59 Intake Total 300 Output Total 200 Balance 100 Weight 69 kg 70.5 kg Intake: Oral 300 Output: Urine 200 Other: Voiding Method Urinal - Exam GENERAL EXAM: Alert, very pleasant 75-year-old gentleman, on 8 L high flow nasal cannula, fairly comfortable in no apparent distress. HEAD: Normocephalic. EYES: Normal reaction of pupils, equal size. NOSE: Clear with pink turbinates. THROAT: No erythema or exudates. NECK: No masses, no JVD. CHEST: No chest wall deformity. LUNGS: Equal air entry with bilateral scattered rhonchi, end expiratory wheeze, diminished. CVS: S1 and S2 normal with no audible murmur, regular rhythm. ABDOMEN: No hepatosplenomegaly, normal bowel sounds, no guarding or rigidity. SPINE: No scoliosis or deformity SKIN: No rashes CENTRAL NERVOUS SYSTEM: No focal deficits, tone is normal in all 4 extremities. EXTREMITIES: There is no peripheral edema. No clubbing, no cyanosis. Peripheral pulses are intact. - Labs CBC & Chem 7: 08/31/21 10:40 08/31/21 10:40 Labs: Abnormal Lab Results - Last 24 Hours (Table) 08/31/21 08/31/21 Range/Units 10:40 10:40 WBC 11.8 H (3.8-10.6) k/uL RBC 2.59 L (4.30-5.90) m/uL Hgb 9.5 L (13.0-17.5) gm/dL Hct 29.1 L (39.0-53.0) % MCV 112.4 H (80.0-100.0) fL MCH 36.6 H (25.0-35.0) pg RDW 15.6 H (11.5-15.5) % Plt Count 110 L D (150-450) k/uL Neutrophils # 11.0 H (1.3-7.7) k/uL Lymphocytes # 0.2 L (1.0-4.8) k/uL Macrocytosis Marked A Sodium 128 L (137-145) mmol/L Potassium 3.4 L (3.5-5.1) mmol/L Chloride 83 L (98-107) mmol/L Carbon Dioxide 38 H (22-30) mmol/L BUN 45 H (9-20) mg/dL Glucose 237 H (74-99) mg/dL Calcium 8.3 L (8.4-10.2) mg/dL Microbiology - Last 24 Hours (Table) 08/30/21 13:20 Gram Stain - Preliminary Pleural Fluid Body Fluid Culture - Preliminary 08/30/21 13:20 Fungal Culture - Preliminary Pleural Fluid 08/30/21 13:20 Acid Fast Bacilli Culture - Preliminary Pleural Fluid Assessment and Plan Assessment: 1 Acute COPD exacerbation, and the patient is presenting for another episode of worsening shortness of breath, chest congestion and increased difficulty in breathing and hypoxemia and currently is on 10 L of oxygen by nasal cannula. Sputum culture again positive for pseudomonas aeruginosa. He did undergo bronchoscopy with BAL on 08/24/2021. Cultures are revealing Tonja only thus far. Cytology negative for diagnostic malignancy.. 2 Bilateral pleural effusions left greater than right. Status post left-sided thoracentesis with 900 mL clear yellow fluid removed on 08/30/2021. Status post right-sided thoracentesis on 08/31/2021 800 ML's of fluid removed. Cytology pending. 3 Acute on chronic hypoxic respiratory failure secondary to the above, wears 2.5 L nasal cannula at home 4 History of metastatic adenocarcinoma of the lungs, last chemotherapy treatment with Alimta 08/15/2021 5 History of malignant pericardial effusion status post systemic chemotherapy with Alimta and the patient is off immunotherapy 6 Compression fracture of T6 , acute 7 Compression fracture of L1, chronic 8 Severe COPD, stage III 9 History of prostate cancer 10 REM sleep behavior disorder 11 Mild obstructive sleep apnea, not on CPAP at home 12 History of tobacco dependence, quit 04/2020 13 Claustrophobic 14 History of shingles 13 Thrombocytopenia, status post 1 unit of platelets, most recent platelet and 32,000. Bactrim discontinued. Plan: The patient was seen and evaluated by Dr. Dumont Right-sided thoracentesis performed today with 800 ML's of fluid removed Left-sided thoracentesis performed yesterday with 900 mL fluid removed X-ray reveals no evidence of pneumothorax Cytology pending Bronchoscopy cytology negative for diagnostic malignancy Continue the current treatment plan Titrate down the FiO2 as tolerated We will continue to follow and make further recommendations based on his clinical status I, the cosigning physician, performed a history & physical examination of the patient. Lungs sounds bilateral end expiratory wheeze, scattered rhonchi, diminished. Maintaining good O2 saturations in the 90s on 8 L/m per high flow nasal cannula. I discussed the assessment and plan of care with my nurse practitioner, Linh Way. I attest to the above note as dictated by her.
[2021-08-31 15:57] LABS: Appearance,BF Hazy; Color,BF Yellow; Nucleated Cells, Body Fluid 614 /uL; RBC, Body Fluid 971 /uL
[2021-08-31 15:59] LABS: Mononuclear WBC,Body Fluid 91 %; Polynuclear WBC,Body Fluid 9 %; Total Cells Counted,Body Fluid 100
[2021-08-31] MEDS: LIDOCAINE 5% PATCH TOPICAL PRN (21:38)
[2021-08-31] MEDS: LORazepam 2 MG/ML INJ IV PRN (21:38)
[2021-08-31] MEDS: clonazePAM 0.5 MG TAB PO SCH (21:42)
[2021-09-01] MEDS: FUROSEMIDE 10 MG/ML 4 ML VIAL IV SCH ×2 (00:22→07:51)
[2021-09-01] MEDS: methylPREDNISolone SOD SUCCI 125 MG/2 ML VIAL IV SCH ×4 (03:30→21:33)
[2021-09-01 04:39] LABS: Glucose, BF Source Pleural Fluid; Glucose, Body Fluid 206 mg/dL; LDH, Body Fluid Source Pleural Fluid; Total Protein, Body Fluid 2630 mg/dL
[2021-09-01] MEDS: CEFEPIME 2 GM in SODIUM CHLORIDE 0.9% 100 ML IVPB SCH ×2 (05:14→13:12)
[2021-09-01] MEDS: BUDESONIDE 1 MG/2 ML NEBU INHALATION SCH ×2 (07:21→19:33)
[2021-09-01] MEDS: IPRATROPIUM-ALBUTEROL 3 ML NEB INHALATION SCH ×4 (07:21→19:33)
[2021-09-01] MEDS: FORMOTEROL FUMARATE 20 MCG/2 ML NEBU INHALATION SCH ×2 (07:21→19:33)
[2021-09-01 07:41] LABS: African American GFR (CKD) 67 (>60 ml/min/1.73 sqM); Anion Gap 4 mmol/L; Blood Urea Nitrogen 46 mg/dL (9-20); Calcium 8.3 mg/dL (8.4-10.2); Chloride 83 mmol/L (98-107); Glucose 189 mg/dL (74-99); Non-African American GFR(CKD) 58 (>60 ml/min/1.73 sqM); Potassium 3.1 mmol/L (3.5-5.1); Sodium 127 mmol/L (137-145)
[2021-09-01 07:49] LABS: Carbon Dioxide 40 mmol/L (22-30)
[2021-09-01] MEDS: PANTOPRAZOLE 40 MG TABLET PO SCH ×2 (07:51→21:33)
[2021-09-01] MEDS: guaiFENesin 600 MG TABLET.ER PO SCH ×2 (07:51→21:33)
[2021-09-01] MEDS: SODIUM CHLORIDE TAB 1 GM TAB PO SCH ×2 (07:52→21:33)
[2021-09-01] MEDS: POTASSIUM CHLORIDE ER 20 MEQ TAB.ER PO SCH (07:52)
[2021-09-01] MEDS: FLUCONAZOLE ORAL SUSP 1,400 MG/35 ML BOTTLE PO SCH (07:52)
[2021-09-01] MEDS: METOPROLOL SUCCINATE (ER) 25 MG TAB.ER.24H PO SCH (07:52)
[2021-09-01] MEDS: MULTIVITAMINS, THERA 1 EACH TAB PO SCH (07:52)
[2021-09-01] MEDS: FOLIC ACID 1 MG TAB PO SCH (07:52)
[2021-09-01 08:07] LABS: Basophils % (A) 0 %; Eosinophils % (A) 0 %; HCT 26.7 % (39.0-53.0); HGB 8.9 gm/dL (13.0-17.5); Lymphocytes # (A) 0.2 k/uL (1.0-4.8); Lymphocytes % (A) 2 %; MCH 37.3 pg (25.0-35.0); MCHC 33.2 g/dL (31.0-37.0); MCV 112.5 fL (80.0-100.0); Macrocytosis Marked; Mean Platelet Volume 9.6; Monocytes # (A) 0.5 k/uL (0-1.0); Monocytes % (A) 4 %; Neutrophils # (A) 10.6 k/uL (1.3-7.7); Neutrophils % (A) 93 %; Platelet Count 102 k/uL (150-450); RBC 2.37 m/uL (4.30-5.90); RDW 14.8 % (11.5-15.5); WBC 11.4 k/uL (3.8-10.6)
[2021-09-01] MEDS: SENNOSIDES-DOCUSATE SODIUM 1 EACH TAB PO SCH ×2 (11:22→21:27)
--- NOTE | 2021-09-01 12:39 | P.PN ---
Subjective Progress Note Date: 09/01/21 Principal diagnosis: Acute on chronic hypoxic respiratory failure This is a 75-year-old male patient who is coming in today to the emergency for another episodes of worsening shortness of breath. He is well-known to me. He is known to have chronic dyspnea and advanced COPD with an FEV1 of 34% of predicted. He is also a case of metastatic adenocarcinoma consistent of a lung primary that was originally diagnosed on 05/10/2020. At that time the patient presented to us with a large pericardial effusion and required drainage and the fluid was consistent with adenocarcinoma. Since then, the patient underwent further investigation including a PET scan that showed uptake within a lymph node in the right supraclavicular area and the hilar area. He was started on systemic chemotherapy using carboplatinum and Alimta. He also received immunotherapy during the course of his treatment. At one point, the patient was receiving immunotherapy and due to concern of his worsening shortness of breath, the immunotherapy has been discontinued and currently is on a Alimta mainte nance. The patient received his last dose of Alimta approximately 5 days ago. He is coming in today with worsening shortness of breath, cough and congestion and hypoxemia. At home is maintained on oxygen at 2 L per minute nasal cannula. Noted during his last hospitalization, the patient is COPD exacerbation his sputum was positive for stenotrophomonas. We ended up putting this patient on Bactrim and sent home on a prednisone burst taper. As the patient completed the course of antibiotics and steroids, his breathing got worse. The chest x-ray from today showing bilateral pleural effusion, worse on the left and there is some vague limited infiltration of the lung bases mainly consistent with some increased pulmonary vascular congestion. His previous echocardiogram was essentially within normal and the patient has a preserved LV function. His most recent computed tomography scan of the chest was done on 07/28/2021 and the patient was found to have advanced COPD with emphysematous changes bilaterally. There was also evidence of bilateral pleural effusion worse on the left and some atelectatic changes in lung bases bilaterally. There was no evidence of any pulmonary embolism. There was progression a T6 compression fracture and an old L1 compression fracture. No hilar masses. No filling defects. No pericardial effusion was seen. For now, the patient is having difficulty in breathing. He is currently on oxygen at 2 L his current pulse ox is 97%. He continues to have a very congested cough. His blood work shows a hemoglobin of 10.6 with a white cell count of 5.7. Platelet count is at 87. Normal coagulation profile. Creatinine is at 1.3. Sodium is at 132. ProBNP level is at 880. The pro calcitonin LEVEL HAS NOT BEEN CHECKED. CPK IS LESS THAN 20. THE REST OF THE ELECTROLYTES INCLUDING CALCIUM AND POTASSIUM ARE WITHIN NORMAL LIMITS. LIVER FUNCTION TESTS ARE ALSO WITHIN NORMAL LIMITS. The patient is seen today 08/22/2021 and follow-up in the emergency department. He is awake and alert in no acute distress. Breathing a bit easier today compared to yesterday. Continues with a loose productive cough. Culture pending. He is maintaining O2 saturations in the mid 90s on 4 L/m per nasal cannula. He is heme hemodynamically stable. He's afebrile. He's been initiated on DuoNeb inhalations, Pulmicort and Perforomist inhalations, IV Solu-Medrol, Mucinex. IV diuretics. In about eczema form of cefepime and Bactrim. 08/23/2021, the patient remains bronchospastic and wheezy and short of breath and he continues to have a congested cough. Not producing a lot of sputum. Nevertheless, his cough is quite congested. He was able to give me a sputum sample milligrams is positive for many gram-negative bacilli, final culture are still pending.The patient remains on a combination of cefepime and Bactrim. He is on Pulmicort and Perforomist nebulized treatments twice a day and he is also on IV Solu-Medrol. He remains on Lasix. There are bilateral pleural effusion. The pleural fluid marking was done via ultrasound. On 08/24/2021, the patient is essentially the same. Limited improvement since yesterday. The patient has become slightly hypovolemic and sodium level is down to 126. As such, the diuretics were discontinued. Her symptoms the patient continues to have copious respiratory secretions. The plan is to proceed with a bronchoscopy and a aspiration of the bronchial secretions for further cultures and analysis. The patient was unable to bring up much of sputum over the past 24 hours. The he remains on a combination of cefepime and Bactrim. He is also on examination Perforomist and Pulmicort nebulized treatments twice a day and DuoNeb nebulized.. Pleural effusions. No other complaints otherwise for now. On examination he has developed some oropharyngeal candidiasis. During the bronchoscopy from this morning the patient was found to have copious amount of brownish thick purulent respiratory secretions. These were suctioned out. Also noted involving the pharynx and upper airways. Diflucan will be added. Meanwhile, the patient will be given a combination of cefepime and Bactrim. The patient is seen today on 08/25/2021 in follow-up on the regular medical floor. He is currently sitting up in bed. Awake and alert in no acute distress. He is continuing to have productive sputum of brown-colored phlegm. Loose productive cough. Continue O2 saturations in the low 90s on 8 L high flow nasal cannula. He's been afebrile. Hemodynamically stable. He did undergo bronchoscopy with BAL yesterday. Cultures are pending. Initial sputum cultures positive for pseudomonas aeruginosa. Sodium 127. Potassium 4.0. Bicarb 35. Creatinine 1.10. Glucose 128. He remains on DuoNeb inhalations, Pulmicort and Perforomist inhalations, IV Solu-Medrol. Antibiotics in the form of cefepime and Bactrim. CBC pending. The patient is seen today 08/28/2021 in follow-up on the regular medical floor. He is currently sitting up in a chair at the bedside. Awake and alert in no acute distress. Still with a loose, congested cough. Requiring 10 L high flow nasal cannula to maintain O2 saturations in the 90s. Chest x-ray reveals moderate emphysematous changes with small to moderate-sized left greater than right pleural effusions and associated bibasilar compressive atelectasis. Right midlung acute infiltrate remains. No significant change. He is status post 1 unit of platelets this admission. Current platelets 32,000. Hemoglobin 8.7. Sodium 124. Potassium 4.7. Creatinine 1.00. Glucose 133. He remains on DuoNeb inhalations, Pulmicort and Perforomist inhalations, IV Solu-Medrol IV diuretics, antibiotics in the form of cefepime. Cytology from bronchoscopy performed 08/24/2021 are pending. Cultures reveal Tonja. Previous sputum culture positive for pseudomonas aeruginosa. Reevaluated today on 08/29/2021, patient remains on the regular medical floor, continues to have intermittent cough and wheezing. Remains on 10 L high flow Oxygen, O2 Saturations 96%. Patient Is Receiving Antibiotics, Bronchodilators, Diuretics, His Sputum Was Positive for Pseudomonas Aeruginosa from Previous Bronchoscopy Done by Dr. Nicole on 08/24/2021. Cytology Is Still Pending, Patient Had Previous History of Bronchogenic Carcinoma. And Malignant Pericardial Pleural Effusion. Patient Is Feeling about the Same, His Sodium Is Coming up to 128. His Hemoglobin Is 8.5 WBC 6.3. Platelets Remained Low but Improving at 56,000. The patient is seen today 08/30/2021 in follow-up on the regular medical floor. He is currently sitting up in a chair at the bedside. Awake and alert in no acu te distress. He is still requiring 10 L high flow nasal cannula to maintain O2 saturations in the low 90s. He is afebrile. Hemodynamically stable. Bronchoscopy wash cultures revealed Tonja only. Cytology is still pending. Ultrasound of the chest did reveal a 9.7 cm pocket of fluid on the left and a 7.8 cm pocket on the right. He did undergo thoracentesis today on the left by Dr. Dumont. 900 mL of clear yellow fluid was removed. Fluid analysis and cytology pending. He remains on IV diuretics, IV Solu-Medrol, DuoNeb inhalations, Pulmicort and Perforomist inhalations, Mucinex. Antibiotics in the form of cefepime. The patient is seen today 08/31/2021 in follow-up on the regular medical floor. He is currently sitting up in bed. Awake and alert in no acute distress. He is maintaining good O2 saturations in the 90s on 8 L high flow nasal cannula. He did undergo a left-sided thoracentesis yesterday with 900 ML's of clear yellow fluid removed. A collagen cultures pending. Protein 2.7. LDH 188. He remains on IV diuretics, IV Solu-Medrol, DuoNeb inhalations, Pulmicort and Perforomist inhalations, Mucinex. Antibiotics in the form of cefepime. Chest x-ray continues to reveal some right-sided pleural effusion and a right-sided thoracentesis was performed today with 800 ML's of fluid removed. Cytology, cultures, fluid analysis pending. The patient is seen today 09/01/2021 in follow-up on the regular medical floor. He is currently sitting up in a chair at the bedside. Awake and alert in no acute distress. Still with significant congested cough and dyspnea on exertion. Down to 5 L high flow nasal cannula to maintain O2 saturations in the upper 90s. He is afebrile. Hemodynamically stable. Pleural fluid cultures are pending. Initial bronchoscopy cultures from 08/24/2021 were negative for malignancy. Cytology is pending from the two thoracentesis. White count 11.4. Hemoglobin 8.9. Platelets 2. Sodium 127. Potassium 3.1. Bicarb 40. Creatinine 1.22. He remains on IV diuretics, IV Solu-Medrol, DuoNeb inhalations, Pulmicort and Perforomist inhalations, Mucinex. Antibiotics in the form of cefepime. Objective - Vital Signs Vital signs: Vital Signs Temp 98.3 F 09/01/21 08:00 Pulse 95 09/01/21 11:27 Resp 18 09/01/21 08:00 BP 106/61 09/01/21 08:00 Pulse Ox 98 09/01/21 08:00 Intake & Output 08/31/21 09/01/21 09/01/21 18:59 06:59 18:59 Weight 69 kg Other: Voiding Method Urinal # Bowel Movements 1 - Exam GENERAL EXAM: Alert, very pleasant 75-year-old gentleman, on 5 L high flow nasal cannula, fairly comfortable in no apparent distress. HEAD: Normocephalic. EYES: Normal reaction of pupils, equal size. NOSE: Clear with pink turbinates. THROAT: No erythema or exudates. NECK: No masses, no JVD. CHEST: No chest wall deformity. LUNGS: Equal air entry with bilateral scattered rhonchi, end expiratory wheeze, diminished. CVS: S1 and S2 normal with no audible murmur, regular rhythm. ABDOMEN: No hepatosplenomegaly, normal bowel sounds, no guarding or rigidity. SPINE: No scoliosis or deformity SKIN: No rashes CENTRAL NERVOUS SYSTEM: No focal deficits, tone is normal in all 4 extremities. EXTREMITIES: There is no peripheral edema. No clubbing, no cyanosis. Peripheral pulses are intact. - Labs CBC & Chem 7: 09/01/21 06:52 09/01/21 06:52 Labs: Abnormal Lab Results - Last 24 Hours (Table) 08/31/21 09/01/21 09/01/21 Range/Units 10:40 06:52 06:52 WBC 11.4 H (3.8-10.6) k/uL RBC 2.37 L (4.30-5.90) m/uL Hgb 8.9 L (13.0-17.5) gm/dL Hct 26.7 L (39.0-53.0) % MCV 112.5 H (80.0-100.0) fL MCH 37.3 H (25.0-35.0) pg Plt Count 102 L (150-450) k/uL Neutrophils # 11.0 H 10.6 H (1.3-7.7) k/uL Lymphocytes # 0.2 L 0.2 L (1.0-4.8) k/uL Macrocytosis Marked A Sodium 127 L (137-145) mmol/L Potassium 3.1 L (3.5-5.1) mmol/L Chloride 83 L (98-107) mmol/L Carbon Dioxide 40 H (22-30) mmol/L BUN 46 H (9-20) mg/dL Glucose 189 H (74-99) mg/dL Calcium 8.3 L (8.4-10.2) mg/dL Microbiology - Last 24 Hours (Table) 08/31/21 10:30 Gram Stain - Preliminary Pleural Fluid Body Fluid Culture - Preliminary 08/30/21 13:20 Acid Fast Bacilli Smear - Final Pleural Fluid Acid Fast Bacilli Culture - Preliminary 08/31/21 10:30 Fungal Culture - Preliminary Pleural Fluid 08/31/21 10:30 Acid Fast Bacilli Culture - Preliminary Pleural Fluid 08/30/21 13:20 Gram Stain - Preliminary Pleural Fluid Body Fluid Culture - Preliminary Assessment and Plan Assessment: 1 Acute COPD exacerbation, and the patient is presenting for another episode of worsening shortness of breath, chest congestion and increased difficulty in breathing and hypoxemia and currently is on 10 L of oxygen by nasal cannula. Sputum culture again positive for pseudomonas aeruginosa. He did undergo bronchoscopy with BAL on 08/24/2021. Cultures are revealing Tonja only thus far. Cytology negative for malignancy. 2 Bilateral pleural effusions left greater than right. Status post left-sided thoracentesis with 900 mL clear yellow fluid removed on 08/30/2021. Status post right-sided thoracentesis on 08/31/2021 800 ML's of fluid removed. Cytology pending. 3 Acute on chronic hypoxic respiratory failure secondary to the above, wears 2.5 L nasal cannula at home 4 History of metastatic adenocarcinoma of the lungs, last chemotherapy treatment with Alimta 08/15/2021 5 History of malignant pericardial effusion status post systemic chemotherapy w ith Alimta and the patient is off immunotherapy 6 Compression fracture of T6 , acute 7 Compression fracture of L1, chronic 8 Severe COPD, stage III 9 History of prostate cancer 10 REM sleep behavior disorder 11 Mild obstructive sleep apnea, not on CPAP at home 12 History of tobacco dependence, quit 04/2020 13 Claustrophobic 14 History of shingles 13 Thrombocytopenia, status post 1 unit of platelets, most recent platelet and 32,000. Bactrim discontinued. Plan: The patient was seen and evaluated by Dr. Dumont Status post bilateral thoracenteses. Cytology pending Bronchoscopy cytology negative for diagnostic malignancy Continue the current treatment plan Titrate down the FiO2 as tolerated We will continue to follow and make further recommendations based on his clinical status I, the cosigning physician, performed a history & physical examination of the patient. Lungs sounds bilateral end expiratory wheeze, scattered rhonchi, diminished. Maintaining good O2 saturations in the 90s on 5 L/m per high flow nasal cannula. I discussed the assessment and plan of care with my nurse practitioner, Linh Way. I attest to the above note as dictated by her.
[2021-09-01] MEDS: clonazePAM 0.5 MG TAB PO SCH (21:27)
[2021-09-01] MEDS: Acetaminophen-Codeine 300-30mg TAB PO PRN (21:49)
[2021-09-01] MEDS: LORazepam 2 MG/ML INJ IV PRN (21:50)
[2021-09-01] MEDS: LIDOCAINE 5% PATCH TOPICAL PRN (21:51)
[2021-09-02] MEDS: CEFEPIME 2 GM in SODIUM CHLORIDE 0.9% 100 ML IVPB SCH ×2 (01:10→13:09)
[2021-09-02] MEDS: methylPREDNISolone SOD SUCCI 125 MG/2 ML VIAL IV SCH ×4 (03:14→20:51)
[2021-09-02] MEDS: BUDESONIDE 1 MG/2 ML NEBU INHALATION SCH ×2 (06:56→19:40)
[2021-09-02] MEDS: IPRATROPIUM-ALBUTEROL 3 ML NEB INHALATION SCH ×4 (06:56→19:40)
[2021-09-02] MEDS: FORMOTEROL FUMARATE 20 MCG/2 ML NEBU INHALATION SCH ×2 (06:56→19:40)
[2021-09-02] MEDS: FLUCONAZOLE ORAL SUSP 1,400 MG/35 ML BOTTLE PO SCH (08:55)
[2021-09-02] MEDS: SENNOSIDES-DOCUSATE SODIUM 1 EACH TAB PO SCH ×2 (08:57→20:46)
[2021-09-02] MEDS: FOLIC ACID 1 MG TAB PO SCH (08:57)
[2021-09-02] MEDS: MULTIVITAMINS, THERA 1 EACH TAB PO SCH (08:58)
[2021-09-02] MEDS: PANTOPRAZOLE 40 MG TABLET PO SCH ×2 (08:58→20:52)
[2021-09-02] MEDS: guaiFENesin 600 MG TABLET.ER PO SCH ×2 (08:58→20:51)
[2021-09-02] MEDS: POTASSIUM CHLORIDE ER 20 MEQ TAB.ER PO SCH (08:58)
[2021-09-02] MEDS: METOPROLOL SUCCINATE (ER) 25 MG TAB.ER.24H PO SCH (08:58)
[2021-09-02] MEDS: SODIUM CHLORIDE TAB 1 GM TAB PO SCH ×2 (08:59→20:52)
[2021-09-02] MEDS: FUROSEMIDE 10 MG/ML 4 ML VIAL IV SCH (08:59)
--- NOTE | 2021-09-02 13:50 | P.PN ---
Subjective Progress Note Date: 09/02/21 Principal diagnosis: Dyspnea, acute on chronic hypoxia On today's evaluation on 08/27/2021 patient seen in follow-up on medical surgical floor, his FiO2 is currently up to 10 L, she feels a more short of breath, and his leg edema has worsened. Patient has been receiving IV fluids in the form of 0.9 normal saline at a rate of 50 ML per hour, today's chest x-ray showing moderate emphysematous changes with small to moderate-sized left greater than right pleural effusions, and bibasilar Infiltrates and atelectasis in the right midlung. Patient has not been receiving any diuretics in the last few days. He remains on antibiotics in the form of cefepime, he is status post b ronchoscopy with bronchoalveolar lavage on 08/24/2021, so far his BAL cultures are positive for Tonja albicans. Today's labs have been reviewed, his white blood cell count is down to 8.2, hemoglobin is 8.7, his sodium is 127, potassium is 5.4, CO2 33, BUN is 47 creatinine is 1.28. On 09/02/2021 patient seen in follow-up on medical surgical floor, his FiO2 is currently down to 5 L, his pulse ox 98%, his breathing continues to improve. His had no fever or chills overnight, he is still coughing, and he is able to produce some phlegm. He remains on antibiotics, and once daily dose of IV Lasi x, he is currently on a combination of cefepime and Diflucan. He remains on high-dose steroids with IV Solu-Medrol 60 mg every 6 hours, he is on nebulized bronchodilators. His pleural fluid cultures have shown no growth thus far, final cultures are pending, his bronchoalveolar lavage from 08/24/2021 showed Tonja albicans, his previous sputum culture from 08/22/2021 showed evidence of pseudomonas aeruginosa, patient is covered with cefepime. no new labs today. He is status post right-sided thoracentesis On 08/30/2021 with removal of 900 mL of pleural fluid, which was exudative, cytology is pending, pleural fluid cultures are negative thus far. Overall she feels better, his breathing is improving. No complaints of chest discomfort, no hemoptysis. Objective - Vital Signs Vital signs: Vital Signs Temp 97.9 F 09/02/21 08:00 Pulse 84 09/02/21 10:57 Resp 18 09/02/21 08:00 BP 121/61 09/02/21 08:00 Pulse Ox 98 09/02/21 08:00 Intake & Output 09/01/21 09/02/21 09/02/21 18:59 06:59 18:59 Output Total 600 550 Balance -600 -550 Weight 72 kg Output: Urine 600 550 Other: # Voids 2 # Bowel Movements 1 0 - Exam GENERAL EXAM: Alert, very pleasant, 76-year-old white male, on 5 L of oxygen, sitting up in the recliner, mildly short of breath with conversation, but appears to be no acute distress, with a pulse ox of 95% comfortable in no apparent distress. HEAD: Normocephalic/atraumatic. EYES: Normal reaction of pupils, equal size. Conjunctiva pink, sclera white. NOSE: Clear with pink turbinates. THROAT: No erythema or exudates. NECK: No masses, no JVD, no thyroid enlargement, no adenopathy. CHEST: No chest wall deformity. Symmetrical expansion. LUNGS: Equal air entry with bibasilar crackles CVS: Regular rate and rhythm, normal S1 and S2, no gallops, no murmurs, no rubs ABDOMEN: Soft, nontender. No hepatosplenomegaly, normal bowel sounds, no guarding or rigidity. EXTREMITIES: No clubbing, 1+ edema, no cyanosis, 2+ pulses and upper and lower extremities. MUSCULOSKELETAL: Muscle strength and tone normal. SPINE: No scoliosis or deformity SKIN: No rashes CENTRAL NERVOUS SYSTEM: Alert and oriented -3. No focal deficits, tone is normal in all 4 extremities. PSYCHIATRIC: Alert and oriented -3. Appropriate affect. Intact judgment and insight. - Labs CBC & Chem 7: 09/01/21 06:52 09/01/21 06:52 Labs: Microbiology - Last 24 Hours (Table) 08/31/21 10:30 Gram Stain - Preliminary Pleural Fluid Body Fluid Culture - Preliminary 08/31/21 10:30 Acid Fast Bacilli Smear - Final Pleural Fluid Acid Fast Bacilli Culture - Preliminary 08/30/21 13:20 Gram Stain - Preliminary Pleural Fluid Body Fluid Culture - Preliminary Assessment and Plan Plan: Assessment: #1. Acute COPD exacerbation, and the patient is presenting for another episode of worsening shortness of breath, chest congestion and increased difficulty in breathing and hypoxemia and currently is on 10 L of oxygen by nasal cannula. The prior sputum culture was positive for stenotrophomonas maltophilia. The patient will be treated again with combination of of cefepime and Bactrim. The patient showed limited clinical improvement over the past 24-48 hours. Based on that, the patient underwent a bronchoscopy with therapeutic it was suctioning and removal of purulent respiratory secretions and cultures will be recent. Meanwhile, his oxygen requirements went up to 10 L per minute cannula. Bronchoscopy results are still pending. Sputum samples indicating Pseudomonas and consider Pseudomonas tracheal bronchitis/pneumonia contributing to his COPD exacerbation worsening shortness of breath. The patient currently is on IV cefepime. He has also extensive oropharyngeal candidiasis and he was started on Diflucan. #2. Acute on chronic hypoxic respiratory failure secondary to the above, wears 2.5 L nasal cannula at home, currently on 10 L about 2 by nasal cannula #3. Mild pulmonary hypertension, normal LV function #4. History of metastatic adenocarcinoma of the lungs, last chemotherapy treatment 06/28/2021 #5. History of malignant pericardial effusion status post systemic chemotherapy with Alimta and the patient is off immunotherapy #6. Compression fracture of T6 , acute #7. Compression fracture of L1, chronic #8. Severe COPD, stage III #9. History of prostate cancer #10. REM sleep behavior disorder #11. Mild obstructive sleep apnea, not on CPAP at home #12. History of tobacco dependence, quit 04/2020 #13. bilateral pleural effusions, currently off diuretics #14. 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 I reviewed the nurse practitioner's note and agree with the documented findings and plan of care. Lung sounds are positive for diffuse wheezes throughout the lung coronel. The findings and the impression was discussed with the patient. I attest to the documentation by the nurse practitioner. Time with Patient: Less than 30
[2021-09-02] MEDS: clonazePAM 0.5 MG TAB PO SCH (20:46)
[2021-09-02] MEDS: Acetaminophen-Codeine 300-30mg TAB PO PRN (21:10)
[2021-09-02] MEDS: LIDOCAINE 5% PATCH TOPICAL PRN (21:11)
[2021-09-02] MEDS: LORazepam 2 MG/ML INJ IV PRN (21:11)
[2021-09-03] MEDS: CEFEPIME 2 GM in SODIUM CHLORIDE 0.9% 100 ML IVPB SCH ×2 (01:17→13:37)
[2021-09-03] MEDS: methylPREDNISolone SOD SUCCI 125 MG/2 ML VIAL IV SCH ×2 (03:26→10:07)
--- NOTE | 2021-09-03 07:38 | XR ---
EXAMINATION TYPE: XR chest 1V portable DATE OF EXAM: 09/03/2021 COMPARISON: Chest x-ray 08/31/2021 HISTORY: Congestive heart failure TECHNIQUE: Single frontal view of the chest is obtained. FINDINGS: There is blunting the costophrenic angles left greater than right. Cardiac mediastinal fabiola houette is stable. Aorta is dense. There is no evident pneumothorax. There is overlying artifact note d. There may be some improvement in aeration compared to prior exam. There is likely underlying emphy sematous change. Right upper lobe apical density shows a similar appearance. IMPRESSION: Bibasilar effusions, improvement in aeration. Additional findings above, right apical de nsity as previously described.
[2021-09-03] MEDS: FLUCONAZOLE ORAL SUSP 1,400 MG/35 ML BOTTLE PO SCH (09:10)
[2021-09-03] MEDS: FOLIC ACID 1 MG TAB PO SCH (09:11)
[2021-09-03] MEDS: PANTOPRAZOLE 40 MG TABLET PO SCH ×2 (09:11→21:30)
[2021-09-03] MEDS: MULTIVITAMINS, THERA 1 EACH TAB PO SCH (09:12)
[2021-09-03] MEDS: METOPROLOL SUCCINATE (ER) 25 MG TAB.ER.24H PO SCH (09:12)
[2021-09-03] MEDS: guaiFENesin 600 MG TABLET.ER PO SCH ×2 (09:12→21:30)
[2021-09-03] MEDS: SODIUM CHLORIDE TAB 1 GM TAB PO SCH ×2 (09:13→21:30)
[2021-09-03] MEDS: POTASSIUM CHLORIDE ER 20 MEQ TAB.ER PO SCH (09:13)
[2021-09-03] MEDS: SENNOSIDES-DOCUSATE SODIUM 1 EACH TAB PO SCH ×2 (09:17→21:32)
[2021-09-03] MEDS: LORazepam 2 MG/ML INJ IV PRN ×2 (09:25→22:01)
[2021-09-03] MEDS: FUROSEMIDE 10 MG/ML 4 ML VIAL IV SCH (09:25)
[2021-09-03] MEDS: IPRATROPIUM-ALBUTEROL 3 ML NEB INHALATION SCH ×4 (09:59→20:53)
[2021-09-03] MEDS: FORMOTEROL FUMARATE 20 MCG/2 ML NEBU INHALATION SCH (09:59)
[2021-09-03] MEDS: BUDESONIDE 1 MG/2 ML NEBU INHALATION SCH (09:59)
[2021-09-03] MEDS: predniSONE 20 MG TAB PO SCH (12:21)
--- NOTE | 2021-09-03 13:08 | P.PN ---
Rafat Dennison is a pleasant white male,with a known history of COPD and smoking. He was found to have pericardial effsusion last year along with bilateral lower extremity edema . The patient had percutaneous pericardial drainage of 05/10/20 with cytology positive for metastatic adenocarcinoma, consistent with lung or upper GI primary. Patient had a prior history of prostate cancer with a radical prostatectomy in 03/12. PSA was normal recently. He had multiple tests including MRI, PET , colonoscopy failing to show other etiology. He was discontinued on immunotherapy and is been undergoing chemotherapy only. He is currently being followed by and Dr Trejo for the lung cancer, however there is no significant primary tumor found.. He came to the emergency room one day ago with complaints of increasing shortness of breath over the past 2 days. He denies any current chest pains, pressures. Complains of shortness of breath. He denies any nausea or vomiting. Appetite remains poor. He has a known T6 compression fracture along the L1 compression fracture. MAXIMUM TEMPERATURE is 101.3 yesterday afternoon. Oxygen saturation has improved since he's remained in the ER due to bed shortage. Originally 92% currently at 96% on 4 L via nasal cannula. Labs show hemoglobin 10.6. MCV of 111.5. He has marketed macrocytosis. Chemistry showed a sodium 132 and a GFR now of 54. Total protein is 5.7 albumin 3.2. Blood cultures are negative so far 2 Chest x-ray shows bilateral pleural effusions with scattered areas of patchy infiltrate no evidence of overt failure. Dr. Lea is very seen the patient and his recommendations of updrafts IV cefepime and Bactrim along with sputum cultures Lasix IV Solu-Medrol and Per foromist Pulmicort were noted. They're considering bronchoscopy 09/03/2021:Today hailee is feeling better. He status post pleural effusion thoracentesis several days ago. Cultures have remained negative on this. He and cultures from bronco lavage good route sandra. It will be in. Treated with cefepime and fluconazole. Do you want to eat in any chest pains, pressures. Shortness of breath is stable hes been titrated down to 4 L of oxygen per minute. This is Anter nearest baseline. Objective - Vital Signs Vital signs: Vital Signs Temp 98.0 F 09/03/21 08:00 Pulse 86 09/03/21 10:23 Resp 18 09/03/21 08:00 BP 120/64 09/03/21 08:00 Pulse Ox 98 09/03/21 08:00 Intake & Output 09/02/21 09/03/21 09/03/21 18:59 06:59 18:59 Output Total 550 975 Balance -550 -975 Weight 75 kg Output: Urine 550 975 - Exam GENERAL: thin and in no acute distress. On O2 at 4 l/m NECK: Normal range of motion, supple without lymphadenopathy or JVD, no thyromegaly LUNGS: Breath sounds are somewhat coarse, but improved from previous exam. There is less rhonchi but better air exchange. HEART: Regular rate and rhythm without murmurs, rubs or gallops.S1S2 Normal ABDOMEN: Soft, nontender, normoactive bowel sounds. No guarding, no rebound. No masses appreciated. EXTREMITIES: Normal range of motion, no pitting or edema. No clubbing or cyanosis. NEUROLOGICAL: Cranial nerves II through XII grossly intact. Normal speech, nor mal gait. PSYCH: Normal mood, normal affect. SKIN: Warm, Dry, normal turgor, mild blanchable erythema noted to his lower extremities. - Labs CBC & Chem 7: 09/01/21 06:52 09/01/21 06:52 Labs: Microbiology - Last 24 Hours (Table) 08/24/21 14:30 Acid Fast Bacilli Smear - Final Bronchoalviolar Lavage - Left Acid Fast Bacilli Culture - Preliminary 08/31/21 10:30 Gram Stain - Preliminary Pleural Fluid Body Fluid Culture - Preliminary 08/30/21 13:20 Gram Stain - Preliminary Pleural Fluid Body Fluid Culture - Preliminary Assessment and Plan (1) Acute respiratory failure with hypoxia Current Visit: No Status: Acute Code(s): J96.01 - ACUTE RESPIRATORY FAILURE WITH HYPOXIA SNOMED Code(s): 21015261 (2) Bilateral pleural effusion Current Visit: Yes Status: Acute Code(s): J90 - PLEURAL EFFUSION, NOT ELSEWHERE CLASSIFIED SNOMED Code(s): 403773516 (3) COPD with exacerbation Current Visit: Yes Status: Acute Code(s): J44.1 - CHRONIC OBSTRUCTIVE PULMONARY DISEASE W (ACUTE) EXACERBATION SNOMED Code(s): 942399921 (4) Febrile illness, acute Current Visit: Yes Status: Acute Code(s): R50.9 - FEVER, UNSPECIFIED SNOMED Code(s): 122068374 (5) Lung cancer Current Visit: Yes Status: Chronic Priority: Medium Code(s): C34.90 - MALIGNANT NEOPLASM OF UNSP PART OF UNSP BRONCHUS OR LUNG SNOMED Code(s): 888465530 (6) Anemia Current Visit: No Status: Acute Code(s): D64.9 - ANEMIA, UNSPECIFIED SNOMED Code(s): 811261741 (7) Compression fracture of T6 vertebra Current Visit: No Status: Acute Code(s): S22.050A - WEDGE COMPRESSION FRACTURE OF T5-T6 VERTEBRA, INIT SNOMED Code(s): 171145089 (8) History of nicotine dependence Current Visit: No Status: Acute Code(s): Z87.891 - PERSONAL HISTORY OF NICOTINE DEPENDENCE SNOMED Code(s): 160430901 (9) History of prostate cancer Current Visit: No Status: Acute Code(s): Z85.46 - PERSONAL HISTORY OF MALIGNANT NEOPLASM OF PROSTATE SNOMED Code(s): 526878345 (10) Leukocytosis Current Visit: No Status: Acute Code(s): D72.829 - ELEVATED WHITE BLOOD CELL COUNT, UNSPECIFIED SNOMED Code(s): 599713588 (11) Compression fracture of L1 lumbar vertebra Current Visit: No Status: Chronic Code(s): S32.010A - WEDGE COMPRESSION FRACTURE OF FIRST LUMBAR VERTEBRA, INIT SNOMED Code(s): 317908662 (12) Hyponatremia Current Visit: Yes Status: Acute Code(s): E87.1 - HYPO-OSMOLALITY AND HYPONATREMIA SNOMED Code(s): 20643422 (13) Thrombocytopenia Current Visit: Yes Status: Acute Code(s): D69.6 - THROMBOCYTOPENIA, UNSPECIFIED SNOMED Code(s): 501811787 Plan: He continues on his Pulmicort, fluticasone, performance, DuoNeb, for COPD exacerbation. He remains on IV antibiotics of cefepime and fluconazole he is being changed to PO steroids pantoprazole for GI prophylaxis. Continue, Klonopin. For anxiety Repeat labs in a.m., D/C in the next 24 hours
--- NOTE | 2021-09-03 15:16 | P.PN ---
Subjective Progress Note Date: 09/03/21 Principal diagnosis: COPD exacerbation, lung cancer. Dyspnea, acute on chronic hypoxia On today's evaluation on 08/27/2021 patient seen in follow-up on medical surgical floor, his FiO2 is currently up to 10 L, she feels a more short of breath, and his leg edema has worsened. Patient has been receiving IV fluids in the form of 0.9 normal saline at a rate of 50 ML per hour, today's chest x-ray showing moderate emphysematous changes with small to moderate-sized left greater than right pleural effusions, and bibasilar Infiltrates and atelectasis in the right midlung. Patient has not been receiving any diuretics in the last few days. He remains on antibiotics in the form of cefepime, he is status post bronchoscopy with bronchoalveolar lavage on 08/24/2021, so far his BAL cultures are positive for Tonja albicans. Today's labs have been reviewed, his white blood cell count is down to 8.2, hemoglobin is 8.7, his sodium is 127, potassium is 5.4, CO2 33, BUN is 47 creatinine is 1.28. On 09/02/2021 patient seen in follow-up on medical surgical floor, his FiO2 is c urrently down to 5 L, his pulse ox 98%, his breathing continues to improve. His had no fever or chills overnight, he is still coughing, and he is able to produce some phlegm. He remains on antibiotics, and once daily dose of IV Lasix, he is currently on a combination of cefepime and Diflucan. He remains on high-dose steroids with IV Solu-Medrol 60 mg every 6 hours, he is on nebulized bronchodilators. His pleural fluid cultures have shown no growth thus far, final cultures are pending, his bronchoalveolar lavage from 08/24/2021 showed Tonja albicans, his previous sputum culture from 08/22/2021 showed evidence of pseudomonas aeruginosa, patient is covered with cefepime. no new labs today. He is status post right-sided thoracentesis On 08/30/2021 with removal of 900 mL of pleural fluid, which was exudative, cytology is pending, pleural fluid cultures are negative thus far. Overall she feels better, his breathing is improving. No complaints of chest discomfort, no hemoptysis. Progress note dated 09/03/2021. The patient is again seen in room 457. He seems to be resting comfortably. The patient's oxygen has been weaned down to 4 L, which is what he uses at home. The rest of his vital signs are very stable. There are no new laboratory data. From September 01, white count was 11.4, hemoglobin 8.9, hematocrit 26.7, and platelet count 102,000. Sodium 127, potassium 3.1, chloride 83, CO2 40, anion gap 4, BUN 46, and creatinine 1.22. Cytology from the thoracentesis on both sides, are currently pending. Chest x-ray shows bibasilar effusions, which are improved, secondary to the recent of bilateral thoracentesis. Objective - Vital Signs Vital signs: Vital Signs Temp 98.0 F 09/03/21 08:00 Pulse 86 09/03/21 10:23 Resp 18 09/03/21 08:00 BP 120/64 09/03/21 08:00 Pulse Ox 98 09/03/21 08:00 Intake & Output 09/02/21 09/03/21 09/03/21 18:59 06:59 18:59 Output Total 550 975 Balance -550 -975 Weight 75 kg Output: Urine 550 975 - Exam No acute distress, oriented 3. Currently on 4 L nasal cannula. Saturations are mid 90s. HEENT examination is grossly unremarkable. Neck supple. Full range of motion. No adenopathy thyromegaly or neck vein distention. Cardiovascular examination reveals regular rhythm rate. S1-S2 normal. No S3 or S4. No discernible murmur noted. Heart rate 86 bpm. Heart sounds are distant. Lungs reveal bilateral coarse rhonchi. Breath sounds equal bilaterally. Breath sounds are diminished throughout. No crackles. No wheezes. Abdomen soft bowel sounds are heard. No masses or tenderness. Extremities are intact. No cyanosis clubbing or edema. Skin is without rash or lesion. Neurologic examination is brief but nonfocal. - Labs CBC & Chem 7: 09/01/21 06:52 09/01/21 06:52 Labs: Microbiology - Last 24 Hours (Table) 08/24/21 14:30 Acid Fast Bacilli Smear - Final Bronchoalviolar Lavage - Left Acid Fast Bacilli Culture - Preliminary 08/31/21 10:30 Gram Stain - Preliminary Pleural Fluid Body Fluid Culture - Preliminary 08/30/21 13:20 Gram Stain - Preliminary Pleural Fluid Body Fluid Culture - Preliminary Assessment and Plan Assessment: #1. Acute COPD exacerbation, and the patient is presenting for another episode of worsening shortness of breath, chest congestion and increased difficulty in breathing and hypoxemia and currently is on 10 L of oxygen by nasal cannula. The prior sputum culture was positive for stenotrophomonas maltophilia. The patient will be treated again with combination of of cefepime and Bactrim. The patient showed limited clinical improvement over the past 24-48 hours. Based on that, the patient underwent a bronchoscopy with therapeutic it was suctioning and removal of purulent respiratory secretions and cultures will be recent. Meanwhile, his oxygen requirements went up to 10 L per minute cannula. Bronchoscopy results are still pending. Sputum samples indicating Pseudomonas and consider Pseudomonas tracheal bronchitis/pneumonia contributing to his COPD exacerbation worsening shortness of breath. The patient currently is on IV cefepime. He has also extensive oropharyngeal candidiasis and he was started on Diflucan. #2. Acute on chronic hypoxic respiratory failure secondary to the above, wears 2.5 L nasal cannula at home, currently on 10 L about 2 by nasal cannula. #3. Mild pulmonary hypertension, normal LV function. #4. History of metastatic adenocarcinoma of the lungs, last chemotherapy treatment 06/28/2021. #5. History of malignant pericardial effusion status post systemic chemotherapy with Alimta and the patient is off immunotherapy. #6. Compression fracture of T6 , acute. #7. Compression fracture of L1, chronic. #8. Severe COPD, stage III. #9. History of prostate cancer. #10. REM sleep behavior disorder. #11. Mild obstructive sleep apnea, not on CPAP at home. #12. History of tobacco dependence, quit 04/2020. #13. Bilateral pleural effusions, currently off diuretics. #14. 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 Plan: Plan dated 09/03/2021. The patient will continue with antibiotics, and corticosteroids, as well as bronchodilators, and oxygen therapy. The patient has been weaned down the 4 L. He is on a bit less than that at home. We will also continue with daily doses of Lasix. Cytology from the bilateral thoracentesis, are currently pending. Additional recommendations and suggestions are forthcoming. Prognosis is very guarded. We will continue to follow make recommendations where appropriate. Time with Patient: Less than 30
[2021-09-03] MEDS: SYMBICORT 160-4.5 MCG INHALER INHALATION SCH (20:53)
[2021-09-03] MEDS: Acetaminophen-Codeine 300-30mg TAB PO PRN (21:33)
[2021-09-03] MEDS: clonazePAM 0.5 MG TAB PO SCH (21:34)
[2021-09-03] MEDS: LIDOCAINE 5% PATCH TOPICAL PRN (22:02)
[2021-09-04] MEDS: CEFEPIME 2 GM in SODIUM CHLORIDE 0.9% 100 ML IVPB SCH ×2 (01:09→13:24)
[2021-09-04] MEDS: SYMBICORT 160-4.5 MCG INHALER INHALATION SCH (07:47)
[2021-09-04] MEDS: IPRATROPIUM-ALBUTEROL 3 ML NEB INHALATION SCH ×2 (07:47→11:18)
[2021-09-04] MEDS: SENNOSIDES-DOCUSATE SODIUM 1 EACH TAB PO SCH (08:07)
[2021-09-04 08:13] VITALS: BP 110/55; RESP 16; TEMP 97.9
[2021-09-04] MEDS: FUROSEMIDE 10 MG/ML 4 ML VIAL IV SCH (08:13)
[2021-09-04] MEDS: FLUCONAZOLE ORAL SUSP 1,400 MG/35 ML BOTTLE PO SCH (09:35)
[2021-09-04] MEDS: FOLIC ACID 1 MG TAB PO SCH (09:36)
[2021-09-04] MEDS: SODIUM CHLORIDE TAB 1 GM TAB PO SCH (09:36)
[2021-09-04] MEDS: predniSONE 20 MG TAB PO SCH (09:36)
[2021-09-04] MEDS: MULTIVITAMINS, THERA 1 EACH TAB PO SCH (09:37)
[2021-09-04] MEDS: METOPROLOL SUCCINATE (ER) 25 MG TAB.ER.24H PO SCH (09:37)
[2021-09-04] MEDS: guaiFENesin 600 MG TABLET.ER PO SCH (09:37)
[2021-09-04] MEDS: POTASSIUM CHLORIDE ER 20 MEQ TAB.ER PO SCH (09:38)
[2021-09-04] MEDS: PANTOPRAZOLE 40 MG TABLET PO SCH (09:38)
[2021-09-04 11:21] VITALS: PULSE 84
--- NOTE | 2021-09-04 13:14 | P.PN ---
Subjective Progress Note Date: 09/04/21 Principal diagnosis: Dyspnea, acute on chronic hypoxia On today's evaluation on 08/27/2021 patient seen in follow-up on medical surgical floor, his FiO2 is currently up to 10 L, she feels a more short of breath, and his leg edema has worsened. Patient has been receiving IV fluids in the form of 0.9 normal saline at a rate of 50 ML per hour, today's chest x-ray showing moderate emphysematous changes with small to moderate-sized left greater than right pleural effusions, and bibasilar Infiltrates and atelectasis in the right midlung. Patient has not been receiving any diuretics in the last few days. He remains on antibiotics in the form of cefepime, he is status post b ronchoscopy with bronchoalveolar lavage on 08/24/2021, so far his BAL cultures are positive for Tonja albicans. Today's labs have been reviewed, his white blood cell count is down to 8.2, hemoglobin is 8.7, his sodium is 127, potassium is 5.4, CO2 33, BUN is 47 creatinine is 1.28. On 09/02/2021 patient seen in follow-up on medical surgical floor, his FiO2 is currently down to 5 L, his pulse ox 98%, his breathing continues to improve. His had no fever or chills overnight, he is still coughing, and he is able to produce some phlegm. He remains on antibiotics, and once daily dose of IV Lasi x, he is currently on a combination of cefepime and Diflucan. He remains on high-dose steroids with IV Solu-Medrol 60 mg every 6 hours, he is on nebulized bronchodilators. His pleural fluid cultures have shown no growth thus far, final cultures are pending, his bronchoalveolar lavage from 08/24/2021 showed Tonja albicans, his previous sputum culture from 08/22/2021 showed evidence of pseudomonas aeruginosa, patient is covered with cefepime. no new labs today. He is status post right-sided thoracentesis On 08/30/2021 with removal of 900 mL of pleural fluid, which was exudative, cytology is pending, pleural fluid cultures are negative thus far. Overall she feels better, his breathing is improving. No complaints of chest discomfort, no hemoptysis. On 09/04/2021 patient seen in follow-up on medical surgical floor, he is currently down to 3 L of oxygen pulse ox is 97%. Yesterday's of chest x-ray showed bibasilar effusions, with improvement in aeration. Cytology of the pleural fluid is still pending at this time. Patient has been improving, breathing much easier. Pleural fluid cultures have shown no growth. he continues on cefepime, he was transitioned to oral prednisone, and IV diuretics. Objective - Vital Signs Vital signs: Vital Signs Temp 97.9 F 09/04/21 08:04 Pulse 84 09/04/21 11:30 Resp 16 09/04/21 08:04 BP 110/55 09/04/21 08:04 Pulse Ox 97 09/04/21 08:04 Intake & Output 09/03/21 09/04/21 09/04/21 18:59 06:59 18:59 Intake Total 200 Output Total 400 Balance -200 Weight 75 kg Intake: Oral 200 Output: Urine 400 Other: Voiding Method Urinal # Voids 2 # Bowel Movements 0 - Exam GENERAL EXAM: Alert, very pleasant, 76-year-old white male, on 3 L of oxygen, sitting up in the recliner, mildly short of breath with conversation, but appears to be no acute distress, with a pulse ox of 95% comfortable in no apparent distress. HEAD: Normocephalic/atraumatic. EYES: Normal reaction of pupils, equal size. Conjunctiva pink, sclera white. NOSE: Clear with pink turbinates. THROAT: No erythema or exudates. NECK: No masses, no JVD, no thyroid enlargement, no adenopathy. CHEST: No chest wall deformity. Symmetrical expansion. LUNGS: Equal air entry with bibasilar crackles CVS: Regular rate and rhythm, normal S1 and S2, no gallops, no murmurs, no rubs ABDOMEN: Soft, nontender. No hepatosplenomegaly, normal bowel sounds, no guarding or rigidity. EXTREMITIES: No clubbing, 1+ edema, no cyanosis, 2+ pulses and upper and lower extremities. MUSCULOSKELETAL: Muscle strength and tone normal. SPINE: No scoliosis or deformity SKIN: No rashes CENTRAL NERVOUS SYSTEM: Alert and oriented -3. No focal deficits, tone is normal in all 4 extremities. PSYCHIATRIC: Alert and oriented -3. Appropriate affect. Intact judgment and insight. - Labs CBC & Chem 7: 09/01/21 06:52 09/01/21 06:52 Labs: Microbiology - Last 24 Hours (Table) 08/31/21 10:30 Gram Stain - Preliminary Pleural Fluid Body Fluid Culture - Preliminary 08/30/21 13:20 Gram Stain - Final Pleural Fluid Body Fluid Culture - Final 08/24/21 14:30 Acid Fast Bacilli Smear - Final Bronchoalviolar Lavage - Left Acid Fast Bacilli Culture - Preliminary Assessment and Plan Plan: Assessment: #1. Acute COPD exacerbation, and the patient is presenting for another episode of worsening shortness of breath, chest congestion and increased difficulty in breathing and hypoxemia and currently is on 10 L of oxygen by nasal cannula. The prior sputum culture was positive for stenotrophomonas maltophilia. The patient will be treated again with combination of of cefepime and Bactrim. The patient showed limited clinical improvement over the past 24-48 hours. Based on that, the patient underwent a bronchoscopy with therapeutic it was suctioning and removal of purulent respiratory secretions and cultures will be recent. Meanwhile, his oxygen requirements went up to 10 L per minute cannula. Bronchoscopy results are still pending. Sputum samples indicating Pseudomonas and consider Pseudomonas tracheal bronchitis/pneumonia contributing to his COPD exacerbation worsening shortness of breath. The patient currently is on IV cefepime. He has also extensive oropharyngeal candidiasis and he was started on Diflucan. #2. Acute on chronic hypoxic respiratory failure secondary to the above, wears 2.5 L nasal cannula at home, currently on 3 L by nasal cannula #3. Mild pulmonary hypertension, normal LV function #4. History of metastatic adenocarcinoma of the lungs, last chemotherapy treatment 06/28/2021 #5. History of malignant pericardial effusion status post systemic chemotherapy with Alimta and the patient is off immunotherapy #6. Compression fracture of T6 , acute #7. Compression fracture of L1, chronic #8. Severe COPD, stage III #9. History of prostate cancer #10. REM sleep behavior disorder #11. Mild obstructive sleep apnea, not on CPAP at home #12. History of tobacco dependence, quit 04/2020 #13. bilateral pleural effusions, currently off diuretics #14. hyponatremia,related to SIADH Plan: Yesterday's chest x-ray has been reviewed, showing mprovement in aeration, Patient is maintaining negative fluid balance BAL cultures have shown no growth Patient has completed 14 day course of cefepime, Patient has been transitioned to prednisone Continue weaning FiO2 Increase activity as tolerated If remains stable and continues to improve may consider discharge home in the next 24 hours I performed a history & physical examination of the patient and discussed their management with my nurse practitioner, Kandi Saleem. I reviewed the nurse practitioner's note and agree with the documented findings and plan of care. Lung sounds are positive for diffuse wheezes throughout the lung coronel. The findings and the impression was discussed with the patient. I attest to the documentation by the nurse practitioner. Time with Patient: Less than 30
--- NOTE | 2021-09-04 13:58 | P.DS ---
Providers Date of admission: 08/21/21 12:48 Expected date of discharge: 09/04/21 Attending physician: Kaveh Garcia Consults: 08/21/21 12:45 Consult Physician Routine Consulting Provider: Brynn Nicole Consult Reason/Comments: COPD, bilateral pleural effusions Do you want consulting provider notified?: Yes 08/22/21 13:47 Consult Physician Routine Consulting Provider: Rex Trejo Consult Reason/Comments: lung cancer Do you want consulting provider notified?: Already Contacted Primary care physician: Adam Ortega - Jomar Diagnosis(es) (1) Acute respiratory failure with hypoxia Current Visit: No Status: Acute (2) Bilateral pleural effusion Current Visit: Yes Status: Acute (3) COPD with exacerbation Current Visit: Yes Status: Acute (4) Febrile illness, acute Current Visit: Yes Status: Acute (5) Lung cancer Current Visit: Yes Status: Chronic Priority: Medium (6) Anemia Current Visit: No Status: Acute (7) Compression fracture of T6 vertebra Current Visit: No Status: Acute (8) History of nicotine dependence Current Visit: No Status: Acute (9) History of prostate cancer Current Visit: No Status: Acute (10) Leukocytosis Current Visit: No Status: Acute (11) Compression fracture of L1 lumbar vertebra Current Visit: No Status: Chronic (12) Hyponatremia Current Visit: Yes Status: Acute (13) Thrombocytopenia Current Visit: Yes Status: Acute Hospital Course: uJma is a pleasant white male,with a known history of COPD and smoking. He was found to have pericardial effsusion last year along with bilateral lower extremity edema . The patient had percutaneous pericardial drainage of 05/10/20 with cytology positive for metastatic adenocarcinoma, consistent with lung or upper GI primary. Patient had a prior history of prostate cancer with a radical prostatectomy in 03/12. PSA was normal recently. He had multiple tests including MRI, PET , colonoscopy failing to show other etiology. He was discontinued on immunotherapy and is been undergoing chemotherapy only. He is currently being followed by and Dr Trejo for the lung cancer, however there is no significant primary tumor found.. He came to the emergency room one day ago with complaints of increasing shortness of breath over the past 2 days. He denies any current chest pains, pressures. Complains of shortness of breath. He denies any nausea or vomiting. Appetite remains poor. He has a known T6 compression fracture along the L1 compression fracture. MAXIMUM TEMPERATURE is 101.3 yesterday afternoon. Oxygen saturation has improved since he's remained in the ER due to bed shortage. Originally 92% currently at 96% on 4 L via nasal cannula. Labs show hemoglobin 10.6. MCV of 111.5. He has marketed macrocytosis. Chemistry showed a sodium 132 and a GFR now of 54. Total protein is 5.7 albumin 3.2. Blood cultures are negative so far 2 Chest x-ray shows bilateral pleural effusions with scattered areas of patchy infiltrate no evidence of overt failure. Dr. Lea is very seen the patient and his recommendations of updrafts IV cefepime and Bactrim along with sputum cultures Lasix IV Solu-Medrol and Perforomist Pulmicort were noted. They're considering bronchoscopy 09/03/2021:Today hailee is feeling better. He status post pleural effusion thoracentesis several days ago. Cultures have remained negative on this. He and cultures from bronco lavage good route sandra. It will be in. Treated with cefepime and fluconazole. Do you want to eat in any chest pains, pressures. Shortness of breath is stable hes been titrated down to 4 L of oxygen per minute. This is Anter nearest baseline. 09/04/2021: patient appears at baseline regarding his COPD. He does have debility after a long stay and will undergo PT/OT at home He will f/u with Pulmonolgy in the next week f/u with Oncology in the next week Patient Condition at Discharge: Fair Plan - Discharge Summary Discharge Rx Participant: Yes New Discharge Prescriptions: New Fluconazole Oral Susp [Diflucan Oral Susp] 200 mg PO DAILY #150 ml Lidocaine 5% Patch [Lidoderm 5% Patch] 1 patch TOPICAL DAILY PRN 30 Days #30 patch PRN Reason: Mild To Moderate Pain guaiFENesin [Mucinex] 1,200 mg PO Q12HR tablet Sodium Chloride Tab 1 gm PO BID #0 tab Continue Umeclidinium Brm/Vilanterol Tr [Anoro Ellipta 62.5-25 Mcg INH] 1 puff INHALATION RT-DAILY clonazePAM [KlonoPIN] 0.5 mg PO HS Albuterol Nebulized [Ventolin Nebulized] 2.5 mg INHALATION RT-QID PRN PRN Reason: Shortness Of Breath Folic Acid 2 mg PO DAILY Multivitamins, Thera [Multivitamin (formulary)] 1 tab PO DAILY Acetaminophen Tab [Tylenol] 650 mg PO Q6HR PRN tab PRN Reason: Mild Pain Or Fever > 100.5 Furosemide [Lasix] 40 mg PO BID Metoprolol Succinate (ER) [Toprol XL] 25 mg PO DAILY #30 tablet Fluticasone Nasal [place] [Flonase Nasal [place]] 1 spr EA NOSTRIL BID PRN PRN Reason: Congestion predniSONE 30 mg PO DAILY #90 tab Pantoprazole [Protonix] 40 mg PO BID Albuterol Inhaler [Ventolin Hfa Inhaler] 2 puff INHALATION RT-QID PRN PRN Reason: Shortness Of Breath Potassium Chloride ER [K-Dur 20] 20 meq PO DAILY Acetaminophen-Codeine 300-30mg [Tylenol w/codeine #3] 1 - 2 tab PO Q6H PRN PRN Reason: Pain Sennosides-Docusate Sodium [Senokot-S] 2 tab PO BID Sulfamethox-Tmp 800-160Mg [Bactrim DS 800-160 mg] 1 tab PO DAILY Discharge Medication List Umeclidinium Brm/Vilanterol Tr [Anoro Ellipta 62.5-25 Mcg INH] 1 puff INHALATION RT-DAILY 03/01/19 [History] clonazePAM [KlonoPIN] 0.5 mg PO HS 03/01/19 [History] Albuterol Nebulized [Ventolin Nebulized] 2.5 mg INHALATION RT-QID PRN 05/09/20 [History] Folic Acid 2 mg PO DAILY 07/13/20 [History] Multivitamins, Thera [Multivitamin (formulary)] 1 tab PO DAILY 03/07/21 [History] Pantoprazole [Protonix] 40 mg PO BID 03/07/21 [History] Albuterol Inhaler [Ventolin Hfa Inhaler] 2 puff INHALATION RT-QID PRN 04/15/21 [History] Potassium Chloride ER [K-Dur 20] 20 meq PO DAILY 06/29/21 [History] Acetaminophen Tab [Tylenol] 650 mg PO Q6HR PRN tab 07/04/21 [Rx] Acetaminophen-Codeine 300-30mg [Tylenol w/codeine #3] 1 - 2 tab PO Q6H PRN 07/28/21 [History] Furosemide [Lasix] 40 mg PO BID 07/28/21 [History] Metoprolol Succinate (ER) [Toprol XL] 25 mg PO DAILY #30 tablet 08/03/21 [Rx] Fluticasone Nasal [place] [Flonase Nasal [place]] 1 spr EA NOSTRIL BID PRN 08/21/21 [History] Sennosides-Docusate Sodium [Senokot-S] 2 tab PO BID 08/21/21 [History] Sulfamethox-Tmp 800-160Mg [Bactrim DS 800-160 mg] 1 tab PO DAILY 08/21/21 [History] Fluconazole Oral Susp [Diflucan Oral Susp] 200 mg PO DAILY #150 ml 09/04/21 [Rx] Lidocaine 5% Patch [Lidoderm 5% Patch] 1 patch TOPICAL DAILY PRN 30 Days #30 patch 09/04/21 [Rx] Sodium Chloride Tab 1 gm PO BID #0 tab 09/04/21 [Rx] guaiFENesin [Mucinex] 1,200 mg PO Q12HR tablet 09/04/21 [Rx] predniSONE 30 mg PO DAILY #90 tab 09/04/21 [Rx] Follow up Appointment(s)/Referral(s): [facility] [place], [NON-STAFF] - Adam Ortega Jr, DO [Primary Care Provider] - 1-2 days (office closed, patient to call to make appointment.) Patient Instructions/Handouts: COPD (Chronic Obstructive Pulmonary Disease) (DC) Discharge Disposition: HOME SELF-CARE
[2021-09-04] MEDS ORDERED: Potassium Replacement Protocol 1 EACH MISC MISCELLANE PRN (14:29)
--- NOTE | 2021-09-05 07:45 | P.PN ---
Subjective Progress Note Date: 09/02/21 Principal diagnosis: acute exacerbation of chronic COPD with hypoxic respiratory failure, known history of bronchogenic carcinoma, bilateral pleural effusions persistent intermittent cough wheeze. Remains on 10 L high flow oxygen, sats 96%. Currently receiving IV antibiotics bronchodilators diuretics. Was positive for pseudomonas aeruginosa specifically from Eduardo performed on 08/24/[address] Nicole. Objective - Vital Signs Vital signs: Vital Signs Temp 97.9 F 09/04/21 08:04 Pulse 84 09/04/21 11:30 Resp 16 09/04/21 08:04 BP 110/55 09/04/21 08:04 Pulse Ox 97 09/04/21 08:04 - Exam General: [Patient awake, alert and oriented times 3. Patient in no acute distress.] HEENT: [PERRL. EOMI. No pharyngeal erythema or exudate.] Neck: [No adenopathy.] Cardiac: [Heart regular in rate and rhythm. No S3. No S4. No clicks, rubs. No murmur.] Lungs: [Clear to auscultation bilaterally.] Abdomen: [No mass. No organomegaly. Bowel sounds presnt and normoactive in all 4 quadrants.] Extremes: [No edema no cyanosis no claudication normal pulses] : normal male genitalia Musculoskeletal: [No joint erythema, edema or tenderness.] Skin: [No rash.] Neurologic: [No lateralizing deficits. CN II - XII grossly intact.] Lymphatic: [No adenopathy.] - Labs CBC & Chem 7: 09/01/21 06:52 09/04/21 14:25 Labs: Microbiology - Last 24 Hours (Table) 08/31/21 10:30 Gram Stain - Final Pleural Fluid Body Fluid Culture - Final Assessment and Plan (1) Bilateral pleural effusion Status: Acute Code(s): J90 - PLEURAL EFFUSION, NOT ELSEWHERE CLASSIFIED SNOMED Code(s): 248273743 (2) COPD with exacerbation Status: Acute Code(s): J44.1 - CHRONIC OBSTRUCTIVE PULMONARY DISEASE W (ACUTE) EXACERBATION SNOMED Code(s): 358422363 (3) Hyponatremia Status: Acute Code(s): E87.1 - HYPO-OSMOLALITY AND HYPONATREMIA SNOMED Code(s): 73102706 (4) Lung cancer Status: Chronic Priority: Medium Code(s): C34.90 - MALIGNANT NEOPLASM OF UNSP PART OF UNSP BRONCHUS OR LUNG SNOMED Code(s): 452389073 (5) Acute respiratory failure with hypoxia Status: Acute Code(s): J96.01 - ACUTE RESPIRATORY FAILURE WITH HYPOXIA SNOMED Code(s): 72614394 (6) Dehydration Status: Acute Code(s): E86.0 - DEHYDRATION SNOMED Code(s): 64756695 (7) Edema, peripheral Status: Acute Code(s): R60.9 - EDEMA, UNSPECIFIED SNOMED Code(s): 884986117 Plan: Continue meds as scheduled Prognosis guarded Waiting for patient to require less oxygen post thoracentisis Time with Patient: Greater than 30
== END 2021-09-04 15:37 | disposition home health service (06) | DRG 190 ==
LOC: EC 09:34 → 4SSUR 12:48
PROVIDERS: ADMIT Family Medicine; ATTEND Family Medicine
DX: J44.1 Chronic obstructive pulmonary disease with (acute) exacerbation (principal); J96.21 Acute and chronic respiratory failure with hypoxia; J91.0 Malignant pleural effusion; J81.1 Chronic pulmonary edema; J98.11 Atelectasis; M48.54XA Collapsed vertebra, not elsewhere classified, thoracic region, initial encounter for fracture; M48.56XA Collapsed vertebra, not elsewhere classified, lumbar region, initial encounter for fracture; N17.9 Acute kidney failure, unspecified; B37.0 Candidal stomatitis; B37.89 Other sites of candidiasis; C34.90 Malignant neoplasm of unspecified part of unspecified bronchus or lung; E22.2 Syndrome of inappropriate secretion of antidiuretic hormone; C78.2 Secondary malignant neoplasm of pleura; C79.89 Secondary malignant neoplasm of other specified sites; Z85.46 Personal history of malignant neoplasm of prostate; I27.20 Pulmonary hypertension, unspecified; Z20.822 Contact with and (suspected) exposure to COVID-19; D69.59 Other secondary thrombocytopenia; Z85.828 Personal history of other malignant neoplasm of skin; F10.21 Alcohol dependence, in remission; D64.9 Anemia, unspecified; D72.829 Elevated white blood cell count, unspecified; D75.89 Other specified diseases of blood and blood-forming organs; E86.0 Dehydration; E86.1 Hypovolemia; F40.240 Claustrophobia; G47.33 Obstructive sleep apnea (adult) (pediatric); G47.52 REM sleep behavior disorder; L30.9 Dermatitis, unspecified; T45.1X5A Adverse effect of antineoplastic and immunosuppressive drugs, initial encounter; Z92.21 Personal history of antineoplastic chemotherapy; Z87.891 Personal history of nicotine dependence; Z90.79 Acquired absence of other genital organ(s); J40 Bronchitis, not specified as acute or chronic; B96.5 Pseudomonas (aeruginosa) (mallei) (pseudomallei) as the cause of diseases classified elsewhere; Z91.81 History of falling; K44.9 Diaphragmatic hernia without obstruction or gangrene; H93.13 Tinnitus, bilateral; K21.9 Gastro-esophageal reflux disease without esophagitis; H91.93 Unspecified hearing loss, bilateral; Z98.890 Other specified postprocedural states; Z79.899 Other long term (current) drug therapy; Z80.3 Family history of malignant neoplasm of breast; Z82.0 Family history of epilepsy and other diseases of the nervous system; Z82.5 Family history of asthma and other chronic lower respiratory diseases; Z82.69 Family history of other diseases of the musculoskeletal system and connective tissue; Z81.1 Family history of alcohol abuse and dependence; Z86.19 Personal history of other infectious and parasitic diseases; Z96.641 Presence of right artificial hip joint; Z87.01 Personal history of pneumonia (recurrent); Z88.1 Allergy status to other antibiotic agents; Z79.52 Long term (current) use of systemic steroids
CPT/HCPCS: 31624; 36415; 71045; 71046; 76604; 80048; 80053; 82550; 82945; 83605; 83615; 83735; 83880; 83930; 83935; 84132; 84145; 84157; 84300; 84484; 85025; 85384; 85610; 85730; 86850; 86900; 86901; 87040; 87070; 87077; 87102; 87116; 87186; 87205; 87206; 87252; 87496; 87498; 87502; 87529; 87634; 87635; 87798; 88108; 88305; 88341; 88342; 89050; 93005; 94640; 94760; 99285